=== PATIENT | male | born 1975 | race Caucasian/White ===

== ENCOUNTER 2019-08-01 15:20 | Inpatient (IN) | payer BC, MEDICAID, SELFPAY ==
--- NOTE | ~2019-08-01 | XR_ITS ---
EXAMINATION: XR foot RT 2V DATE: 08/01/2019 16:42 INDICATION: Right foot osteoarthritis. TECHNIQUE: 2 views of right foot were obtained. COMPARISON: Right foot radiographs 11/16/2017 FINDINGS: There are changes of transmetatarsal amputation of the fifth ray. There are erosions at the distal aspect of the residual diaphysis of the fifth metatarsal. There is an overlying skin defect. No fracture. Joint spaces are normal. IMPRESSION: 1. Osteomyelitis of the distal stump of the fifth metatarsal. Reviewed, dictated and finalized at location A.
--- NOTE | ~2019-08-01 | US_ITS ---
EXAMINATION: US renal BI DATE: 08/02/2019 09:05 INDICATION: Renal insufficiency, diabetes, uncontrolled hypertension TECHNIQUE: Multiple grayscale and Doppler ultrasound images of the kidneys were obtained. COMPARISON: CT, 11/14/2017 FINDINGS: The right kidney measures 10.0 x 4.7 x 6.6 cm. The left kidney measures 13.7 x 7.4 x 5.4 cm . The kidneys demonstrate normal parenchymal echogenicity. There is no hydronephrosis. The bladder is normal. IMPRESSION: 1. Normal kidneys without hydronephrosis. Reviewed, dictated and finalized at location B.
--- NOTE | ~2019-08-01 | XR_ITS ---
EXAMINATION: XR chest PICC line EXAM DATE: 08/06/2019 18:06 INDICATION: PICC Line placement. TECHNIQUE: Portable AP frontal chest x-ray was obtained. There is no prior study for comparison. FINDINGS: There is a right-sided PICC line with tip projecting over the cavoatrial junction. The lung s are clear. There are no pleural effusions. The cardiomediastinal silhouette is within normal limi ts. There is no pneumothorax suspected. The bones and soft tissues are unremarkable. IMPRESSION: No acute cardiopulmonary findings. Reviewed, dictated and finalized at location A.
[2019-08-01 15:40] VITALS: BP 146/85; PULSE 106; RESP 18; TEMP 36.9; O2SAT 100
--- NOTE | 2019-08-01 15:48 | ED.WOUNDLAC ---
HPI - Wound/Laceration General Chief Complaint: Wound/Laceration Stated Complaint: foot inflammation/open wound Time Seen by Provider: 08/01/19 15:37 Source: patient Mode of arrival: ambulatory Limitations: no limitations History of Present Illness HPI narrative: A 43 y/o male pt has arrived at the ED with c/o a wound to his right lateral foot. The wound was caused by a blister that had popped a couple weeks ago, which the pt contributes to rubbing against his shoe at work. The pt reports associated right foot swelling. The pt saw Dr. Yost for an amputation of his right 5th toe 1.5 years ago. Pt sees a PCP at [facility]. Pt notes that he was on metformin a year and a half ago and stopped after getting his DM under control. Pt was recently told to start taking metformin again. He states that he took the metformin for 5 days and stopped taking it a week and a half ago because he thought that was why his wound was not healing. The pt denies fever, chills, and N/V. He also denies a h/o smoking, or drinking. Onset (ago): week(s) (2) Location: other (right lateral foot) Extremity Location: Right: foot Context: other (popped blister on lateral right foot) Associated symptoms: other (swelling of right foot) Related Data Home Medications Medication Instructions Recorded Confirmed No Home Medications 08/01/19 08/01/19 Allergies Allergy/AdvReac Type Severity Reaction Status Date / Time No Known Allergies Allergy Verified 08/01/19 15:39 Review of Systems Review of Systems: All systems reviewed & are unremarkable except as noted in HPI and below Constitutional: Constitutional: Denies chills and Denies fever(s) Gastrointestinal: Gastrointestinal: Denies nausea and Denies vomiting Musculoskeletal: Musculoskeletal: Reports other (right foot swelling) Integumentary/Breasts: Skin/Breast: Reports wounds (right lateral foot) [facility] Past Medical History Medical History Acute hematogenous osteomyelitis of foot right 5th toe Amputation of fifth toe of right foot Arthritis Bipolar disorder Diabetes mellitus Diabetic ulcer of right foot GERD (gastroesophageal reflux disease) GI bleed HTN (hypertension) Peripheral neuropathy bilateral feet Renal disease Retinopathy, bilateral Suicide attempt Surgical History Surgical History H/O amputation 5th right toe Social History Social History Smoking status: Former smoker Tobacco type: cigars Additional smoking assessment comments: pt smoked 3 cigars a day for 20 years Alcohol intake: never Substance use: current Substance use type: marijuana Occupation/Education: occupation Gender identity (if verbalized by the patient): Male Spiritual care concerns: No Agree to blood products: Yes Course Consultations Consultation #1: Discussed case with AMOS Dixon for the hospitalist. Accepted Admission Date: 08/01/19 Time: 17:25 Vital Signs Vital signs: Vital Signs Temperature 36.9 C 08/01/19 15:40 Pulse Rate 106 H 08/01/19 15:40 Respiratory Rate 18 08/01/19 15:40 Blood Pressure 146/85 H 08/01/19 15:40 Pulse Oximetry 100 08/01/19 15:40 Temperature 37.3 C 08/01/19 20:00 Pulse Rate 98 08/01/19 20:00 Respiratory Rate 16 08/01/19 20:00 Blood Pressure 170/96 H 08/01/19 20:00 Pulse Oximetry 100 08/01/19 20:00 MDM - Wound/Laceration Lab Data Result diagrams: 08/01/19 16:00 08/01/19 16:00 Labs: Lab Results 08/01/19 08/01/19 08/01/19 Range/Units 15:57 15:57 15:59 WBC (4.5-10.0) K/mm3 RBC (4.6-6.20) M/mm3 Hgb (14.0-18.0) g/dL Hct (42.0-52.0) % MCV (80-100) fl MCH (26-34) pg MCHC (32-36) g/dl RDW (11.5-14.5) % Plt Count (150-375) k/mm3 MPV (7.4-10.4) fl Immature Gran % (Auto) (0-0.5) % Neut %
[2019-08-01 16:07] LABS: Basophils Percent Auto 0.5 % (0.2-1.2); Eosinophils Absolute Auto 0.1 K/mm3 (0-0.3); Hematocrit 34.4 % (42.0-52.0); Hemoglobin 11.2 g/dL (14.0-18.0); Immature Granulocyte Absolute 0.02 K/mm3 (0.00-0.031); Immature Granulocyte Percent A 0.2 % (0-0.5); Lymphocytes Absolute Auto 1.51 K/mm3 (0.9-3.2); Lymphocytes Percent Auto 17.1 % (18.3-44.2); Mean Corpuscular HGB Conc 32.6 g/dl (32-36); Mean Corpuscular Hemoglobin 26.2 pg (26-34); Mean Corpuscular Volume 80.4 fl (80-100); Mean Platelet Volume 10.8 fl (7.4-10.4); Monocytes Absolute Auto 0.7 K/mm3 (0.1-0.6); Monocytes Percent Auto 7.6 % (2.6-8.5); Neutrophils Absolute Auto 6.5 K/mm3 (1.3-6.7); Neutrophils Percent Auto 73.6 % (45.5-73.1); Platelet Count Result 258 k/mm3 (150-375); Red Blood Count 4.28 M/mm3 (4.6-6.20); Red Cell Distribution Width 12.3 % (11.5-14.5); White Blood Count 8.8 K/mm3 (4.5-10.0)
[2019-08-01 16:19] LABS: Lactic Acid Reflex 1.4 mmol/L (0.7-2.1)
[2019-08-01 16:23] LABS: Alanine Aminotransferase 14 U/L (4-50); Albumin Level 3.6 g/dL (3.5-5.1); Alkaline Phosphatase 154 U/L (38-126); Aspartate Amino Transferase 18 U/L (17-59); Bilirubin,Total 0.3 mg/dL (0.2-1.3); Blood Urea Nitrogen 29 mg/dL (9-20); Calcium 8.8 mg/dL (8.4-10.2); Carbon Dioxide 29 mmol/L (22-30); Chloride 93 mmol/L (98-107); Estimated CRCL calculation 46 ml/min; Estimated Glomerular Filt Rate 35; Glucose 558 mg/dL (75-110); Potassium 3.7 mmol/L (3.4-5.0); Sodium 128 mmol/L (137-145)
[2019-08-01 16:33] LABS: INR 0.9
[2019-08-01 16:34] LABS: Partial Thromboplastin Time 27.9 SECONDS (22.3-36.8)
[2019-08-01 16:45] LABS: CRP 4.9 mg/dL (<1.0)
--- NOTE | 2019-08-01 17:09 | ED.GENADULT ---
HPI - General Adult General Chief complaint: Wound/Laceration Stated complaint: foot inflammation/open wound Time Seen by Provider: 08/01/19 15:37 Source: patient Mode of arrival: ambulatory Limitations: no limitations History of Present Illness HPI narrative: Patient is a 43 Related Data Allergies Allergy/AdvReac Type Severity Reaction Status Date / Time No Known Allergies Allergy Verified 08/01/19 15:39 PMFSH Past Medical History Medical History Acute hematogenous osteomyelitis of foot right 5th toe Amputation of fifth toe of right foot Arthritis Bipolar disorder Diabetes mellitus Diabetic ulcer of right foot GERD (gastroesophageal reflux disease) GI bleed HTN (hypertension) Peripheral neuropathy bilateral feet Renal disease Retinopathy, bilateral Suicide attempt Surgical History Surgical History H/O amputation 5th right toe Social History Social History Smoking status: Never smoker Alcohol intake: never Occupation/Education: occupation Course Vital Signs Vital signs: Vital Signs Temperature 98.4 F 08/01/19 15:40 Pulse Rate 106 H 08/01/19 15:40 Respiratory Rate 18 08/01/19 15:40 Blood Pressure 146/85 H 08/01/19 15:40 Pulse Oximetry 100 08/01/19 15:40 Temperature 98.4 F 08/01/19 15:40 Pulse Rate 106 H 08/01/19 15:40 Respiratory Rate 18 08/01/19 15:40 Blood Pressure 146/85 H 08/01/19 15:40 Pulse Oximetry 100 08/01/19 15:40 Medical Decision Making Vital Signs Vital Signs: Vital Signs Temperature 98.4 F 08/01/19 15:40 Pulse Rate 106 H 08/01/19 15:40 Respiratory Rate 18 08/01/19 15:40 Blood Pressure 146/85 H 08/01/19 15:40 Pulse Oximetry 100 08/01/19 15:40 Temperature 98.4 F 08/01/19 15:40 Pulse Rate 106 H 08/01/19 15:40 Respiratory Rate 18 08/01/19 15:40 Blood Pressure 146/85 H 08/01/19 15:40 Pulse Oximetry 100 08/01/19 15:40 Lab Data Result diagrams: 08/01/19 16:00 08/01/19 16:00 Labs: Lab Results 08/01/19 08/01/19 08/01/19 Range/Units 15:59 16:00 16:00 WBC 8.8 (4.5-10.0) K/mm3 RBC 4.28 L (4.6-6.20) M/mm3 Hgb 11.2 L (14.0-18.0) g/dL Hct 34.4 L (42.0-52.0) % MCV 80.4 (80-100) fl MCH 26.2 (26-34) pg MCHC 32.6 (32-36) g/dl RDW 12.3 (11.5-14.5) % Plt Count 258 (150-375) k/mm3 MPV 10.8 H (7.4-10.4) fl Immature Gran % (Auto) 0.2 (0-0.5) % Neut % (Auto) 73.6 H (45.5-73.1) % Lymph % (Auto) 17.1 L (18.3-44.2) % [place] % (Auto) 7.6 (2.6-8.5) % Eos % (Auto) 1.0 (0-4.4) % Baso % (Auto) 0.5 (0.2-1.2) % Lymph # (Auto) 1.51 (0.9-3.2) K/mm3 [place] # (Auto) 0.7 H (0.1-0.6) K/mm3 Eos # (Auto) 0.1 (0-0.3) K/mm3 Baso # (Auto) 0.0 (0.0-0.1) K/mm3 Abs Immat Gran (auto) 0.02 (0.00-0.031) K/mm3 Absolute Neuts (auto) 6.5 (1.3-6.7) K/mm3 Absolute Nucleated RBC 0.0 (0.0-0.012) K/mm3 Nucleated RBC % 0.0 (0.0-0.2) % PT 12.0 (11.1-14.7) Seconds INR 0.9 APTT 27.9 (22.3-36.8) SECONDS Sodium 128 L (137-145) mmol/L Potassium 3.7 (3.4-5.0) mmol/L Chloride 93 L (98-107) mmol/L Carbon Dioxide 29 (22-30) mmol/L BUN 29 H (9-20) mg/dL Creatinine 2.10 H (0.7-1.3) mg/dL Estim Creat Clear Calc 46 ml/min Estimated GFR 35 L (59 - ) Glucose 558 H* (75-110) mg/dL Lactic Acid (0.7-2.1) mmol/L Calcium 8.8 (8.4-10.2) mg/dL Total Bilirubin 0.3 (0.2-1.3) mg/dL AST 18 (17-59) U/L ALT 14 (4-50) U/L Alkaline Phosphatase 154 H (38-126) U/L C-Reactive Protein 4.9 H (<1.0) mg/dL Total Protein 7.0 (6.3-8.2) g/dL Albumin 3.6 (3.5-5.1) g/dL 03/25/20 Range/Units 16:00 WBC (4.5-10.0) K/mm3 RBC (4.6-6.20) M/mm3 Hgb (14.0-18.0) g/dL Hct (42.0-52.0) % MCV
[2019-08-01] MEDS: SODIUM CHLORIDE 0.9% IV 1,000 ML 999 ML IV CONT (17:17)
[2019-08-01] MEDS: INSULIN HUMAN REGULAR (*BKC) 100 UNITS/ML 9 UNITS IV PUSH (17:17)
[2019-08-01 17:18] LABS: Alveolar/Arterial O2 Gradient 12.9 mmHg; Fractional Inspired Oxygen 21 %; HCO3 ABG 26.2 mEq/l (22.0-26.0); Oxygen Content ABG 15.9 %vol (16.0-22.0); Oxygen Saturation ABG 97.7 % (95.0-100.0); Oxyhemoglobin 96.7 % THb (90.0-100.0); PCO2 ABG 35.3 mmHg (35.0-45.0); PO2 ABG 94.6 mmHg (80.0-100.0); Total Hemoglobin 11.6 g/dL (12.0-18.0); pH ABG 7.489 (7.350-7.450)
[2019-08-01 17:22] LABS: Device ROOM AIR; Site Drawn LEFT BRACHIAL
[2019-08-01 17:24] LABS: Phosphorus 3.7 mg/dL (2.5-4.5)
[2019-08-01 17:32] LABS: Beta-Hydroxybutyrate/Acetoacetate 0.11 mmol/L (0.02-0.27)
[2019-08-01] MEDS: INSULIN HUMAN REGULAR (*BKC) 100 UNITS in SODIUM CHLORIDE 0.9% IV 99 ML 9.9 UNITS IV CONT (17:38)
[2019-08-01] MEDS: SODIUM CHLORIDE 0.9% IV 1,000 ML 1000 ML (17:50)
[2019-08-01 18:11] VITALS: BP 166/91; PULSE 102; RESP 18; O2SAT 96
--- NOTE | 2019-08-01 18:13 | PC.NURSE ---
pt state sthat he does not take any medications t home, lifetsyle changes are what have helped him.
[2019-08-01 18:17] LABS: Glucose Point of Care 278 (65-105)
--- NOTE | 2019-08-01 18:34 | PC.NURSE ---
catalino to stop insulin drip so pt can go to med surg
[2019-08-01 19:20] VITALS: BP 174/100; PULSE 92; RESP 16; O2SAT 98
[2019-08-01 19:36] VITALS: BP 169/94; PULSE 98; RESP 16; O2SAT 97
[2019-08-01 20:00] VITALS: BP 170/96; PULSE 98; RESP 16; TEMP 37.3; O2SAT 100
--- NOTE | 2019-08-01 20:03 | ADMGEN ---
This patient, Dejan Sevilla, was admitted to 2 Medical Room 259-. Patient/family oriented to hospital policies and general routines including ID bracelet, bed and alarms, visiting hours, pain management, procedures, bathroom and other care routines, personal items, smoking policy, room service/diet, and visiting hours. Valuables list has been completed. Information on how to activate the Rapid Response Team has been discussed. Patient/Family are encouraged to report perceived risks to care and to ask questions if they do not understand what they are told or what they should do.
[2019-08-01 20:19] VITALS: BMI 25.3
[2019-08-01] MEDS: SODIUM CHLORIDE 0.9% IV 1,000 ML 125 ML IV CONT (20:30)
[2019-08-01 21:39] LABS: Hemoglobin A1C > 14.0 % (<5.7)
[2019-08-02] VITALS (14 sets, daily range): BP systolic 122–175; BP diastolic 80–114; PULSE 85–106; RESP 14–18; TEMP 36.4–37.2; O2SAT 99–100
--- NOTE | 2019-08-02 00:15 | PM.IMHP ---
H&P: HPI History of Present Illness Chief complaint: Right diabetic foot wound. Narrative: Dejan Sevilla is a 43-year-old male with type 2 diabetes mellitus complicated by retinopathy, nephropathy, neuropathy, and gastroparesis who presented to the emergency department earlier this afternoon via private vehicle for evaluation of a right diabetic foot wound. He was diagnosed with diabetes approximately 2 years ago when hospitalized at [facility] for a right foot wound, which eventually led to a right 5th toe amputation. Since that time, he has only been intermittently compliant with oral anti diabetic agents for no good reason. Additionally, he has not been taking his antihypertensives. In any event, he has had a callus at the site of prior amputation for ?a long time.? The area started to blister several weeks ago and since that time he has noticed swelling to the right lower leg. More recently, there has been malodorous serosanguineous drainage coming from the wound. Due to severe neuropathy, he has no pain at this site. He has not had fever, chills, or sweats. No recent nausea or vomiting, however he said he was hospitalized at [place] several weeks ago with ?gastroparesis.? He does not check his glucose at home. He denies blurry vision, polydipsia, and polyuria. Review of Systems Review of Systems: Narrative: Twelve systems were reviewed with pertinent positives and negatives as per HPI. He has lost about 30 pounds over the last several years since being diagnosed, without significant change recently. He had nausea and vomiting several weeks ago when he was hospitalized at [facility] as detailed in HPI. He has a previous history of esophagitis noted on EGD in November 2017. He denies hematemesis, melena, and hematochezia. No significant abdominal discomfort or heartburn. Denies chest pain and shortness of breath. No dysuria or hematuria. He has not noticed a change in urine output. No known history of multidrug resistant organisms. No history of venous thromboembolism. Except as documented, all other systems were reviewed and are negative. [facility] Past Medical History Medical History (Updated 08/02/19 @ 01:53 by Martine Solorzano PA-C) Bipolar disorder Chronic anemia Chronic kidney disease, stage 3 Baseline creatinine appears to be between 1.60 and 1.80. Diabetic gastroparesis Diabetic retinopathy GERD (gastroesophageal reflux disease) History of GI bleed Secondary to esophagitis noted on EGD in November 2017. History of osteomyelitis Right 5th toe, status post amputation. History of suicide attempt Hypertension Type 2 diabetes mellitus, uncontrolled Complicated by retinopathy, nephropathy, neuropathy, and gastroparesis. Hemoglobin A1c 08/01/2019 was > 14%. Surgical History Surgical History (Updated 08/02/19 @ 01:45 by Martine Solorzano PA-C) Status post amputation of toe of right foot Right 5th toe due to osteomyelitis. Family History Family History (Updated 08/02/19 @ 01:45 by Martine Solorzano PA-C) Other Adopted Social History Social History (Updated 08/02/19 @ 01:47 by Martine Solorzano PA-C) Social History: The patient lives in [place] with his and their 3 children, 1 biological daughter and 2 step children. The patient is adopted and does not know any medical history regarding his biological parents. 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 He is a previous smoker, both cigars and cigarettes. He does smoke cannabis. He denies alcohol use. , Pari, is his surrogate decision maker and he wishes to be a full code. Additional smoking assessment comments: Spiritual care concerns: No Agree to blood products: Yes Meds Home Medications and Allergies Home Medications Medication Instructions Recorded Confirmed Type No Home Medications 08/01/19 08/01/19 History Allergies Allergy/AdvReac Type Severity Reaction Status Date / Time No Known A
[2019-08-02 01:58] LABS: Creatine Kinase 523 U/L (55-170)
[2019-08-02 01:59] LABS: Blood Urea Nitrogen 23 mg/dL (9-20); Calcium 7.9 mg/dL (8.4-10.2); Carbon Dioxide 24 mmol/L (22-30); Chloride 101 mmol/L (98-107); Estimated CRCL calculation 60 ml/min; Estimated Glomerular Filt Rate 48; Glucose 351 mg/dL (75-110); Potassium 3.8 mmol/L (3.4-5.0); Sodium 131 mmol/L (137-145)
[2019-08-02 03:37] LABS: Glucose Point of Care 203 (65-105)
[2019-08-02] MEDS: INSULIN GLARGINE (*BKC) 100 UNITS/ML 17 UNITS SUB-Q (05:00)
[2019-08-02] MEDS: SODIUM CHLORIDE 0.9% IV 1,000 ML 125 ML IV CONT (05:02)
[2019-08-02 08:00] LABS: Hematocrit 31.3 % (42.0-52.0); Hemoglobin 10.2 g/dL (14.0-18.0); Mean Corpuscular HGB Conc 32.6 g/dl (32-36); Mean Corpuscular Hemoglobin 26.3 pg (26-34); Mean Corpuscular Volume 80.7 fl (80-100); Mean Platelet Volume 10.7 fl (7.4-10.4); Platelet Count Result 224 k/mm3 (150-375); Red Blood Count 3.88 M/mm3 (4.6-6.20); Red Cell Distribution Width 12.3 % (11.5-14.5); White Blood Count 6.8 K/mm3 (4.5-10.0)
--- NOTE | 2019-08-02 08:03 | PM.IMPN ---
Progress Note: A&P Assessment and Plan (1) Osteomyelitis of metatarsal: Code(s): M86.9 - Osteomyelitis, unspecified Status: Acute Assessment and Plan: Rt foot Xray reveals osteomyelitis of the distal stump of the right 5th metatarsal. The pt has bounding DP and PT. I suspect this is neuropathic. Dr. Dumont is on board and has recommended the pt proceed to the OR this afternoon. NPO Blood and wound cultures pending (2) Diabetic foot ulcer: Code(s): E11.621 - Type 2 diabetes mellitus with foot ulcer; L97.509 - Non-pressure chronic ulcer of other part of unspecified foot with unspecified severity Status: Acute Assessment and Plan: WCC normal. Pt is afebrile. Continue imipenem and vancomycin Encourage elevation of the affected extremity Pt will proceed to the OR today with Dr. Dumont (3) Acute kidney injury superimposed on chronic kidney disease: Code(s): N17.9 - Acute kidney failure, unspecified; N18.9 - Chronic kidney disease, unspecified Status: Acute Assessment and Plan: Pt has CKD at baseline. Records requested for comparison. Cr has improved to 1.5 today. Cr 2.1 at presentation to the ED. Continue IV fluid rehydration until pt is tolerating PO intake well post-op. Pt will likely benefit from TODD/ARB at discharge. Avoid nephrotoxic agents Pt will need to obtain better glycemic control to reduce his risk for progression of his diabetic nephropathy Trend Cr Renal US pending (4) Type 2 diabetes mellitus, uncontrolled: Code(s): E11.65 - Type 2 diabetes mellitus with hyperglycemia Status: Acute Assessment and Plan: Pt has many complications of his uncontrolled diabetes and hyperglycemia including peripheral neuropathy, nephropathy, and gastroparesis. He understands the importance of gaining better glycemic control. Hb A1C >14%. Lantus 17 units daily given hemoglobin A1c of > 14% Dietitian and nurse informatics educator consulted Initiate sliding scale insulin, Accu-Cheks, and hypoglycemic protocol Pt will likely benefit from endocrinology consult at discharge as well (5) Hypertension: Code(s): I10 - Essential (primary) hypertension Status: Acute Assessment and Plan: Continue amlodipine 5mg QD Will also consider addition of TODD/ARB for renal protection Monitor blood pressure closely (6) Chronic anemia: Code(s): D64.9 - Anemia, unspecified Status: Acute Assessment and Plan: Stable on review of previous labs. Will check B12, folate, and iron. Will continue to monitor (7) Noncompliance: Code(s): Z91.19 - Patient's noncompliance with other medical treatment and regimen Status: Acute Assessment and Plan: Pt has been non-compliant with the treatment of his diabetes and hypertension. I had a long conversation with the pt regarding the risks of continued noncompliance including adverse CV outcomes, renal disease, etc. He verbalized understanding and is motivated to make changes. Subjective Date/time seen: 08/02/19 08:03 Interval history: Mr. Sevilla is seen and examined at bedside. He reports mild headache since he has not had caffeine today. He has no other complaints. He was seen by Dr. Dumont this AM and has plans to go to the OR this afternoon. He denies fever, chills, nausea, vomiting, cough, SOB, and chest pain. He denies vision change, speech change, and lateralizing weaekness. He has no other complaints. Review of Systems Review of Systems: All systems reviewed & are unremarkable except as noted in HPI and below Exam Narrative: Exam Narrative: General: Well-developed male lying in bed resting. He is cooperative and appears to be in no acute distress. HEENT: Normocephalic and atraumatic. Conjunctivae and lids normal. PERRL. EOMI. Mucous membranes moist. Tooth missing. Posterior pharynx without erythema or exudate. Neck: Supple. No lymphaden
[2019-08-02 08:10] LABS: Blood Urea Nitrogen 20 mg/dL (9-20); Carbon Dioxide 28 mmol/L (22-30); Chloride 103 mmol/L (98-107); Estimated CRCL calculation 64 ml/min; Estimated Glomerular Filt Rate 52; Glucose 311 mg/dL (75-110); Potassium 3.8 mmol/L (3.4-5.0); Sodium 132 mmol/L (137-145)
[2019-08-02 08:15] LABS: Cholesterol 150 mg/dL (0-200); HDL Direct 49 mg/dL; Triglycerides 153 mg/dL (<150)
[2019-08-02 08:26] LABS: LDL Cholesterol Direct 60 mg/dL
[2019-08-02] MEDS: ACETAMINOPHEN 325 MG TABLET 650 MG PO (09:30)
[2019-08-02] MEDS: AMLODIPINE BESYLATE 5 MG TABLET PO (09:32)
[2019-08-02 12:14] LABS: Glucose Point of Care 246 (65-105)
--- NOTE | 2019-08-02 12:40 | PM.CNGS ---
Assessment and Plan Assessment and plan (1) Diabetic infection of right foot: Code(s): E11.628 - Type 2 diabetes mellitus with other skin complications; L08.9 - Local infection of the skin and subcutaneous tissue, unspecified Status: Acute Assessment and Plan: agree with broad-spectrum antibiotic therapy. (2) Osteomyelitis of metatarsal: Code(s): M86.9 - Osteomyelitis, unspecified Status: Acute Assessment and Plan: I explained to the patient that he does have osteomyelitis of the metatarsal where he had his previous 5th toe amputation. With diabetes, particularly poorly controlled diabetes, it is not going to heal without surgical resection. I discussed proceeding with resection today. He is agreeable to going ahead. We will go ahead under anesthesia later today with resection of the 5th metatarsal. He will likely have an open wound that will require wound care following surgery. (3) Type 2 diabetes mellitus, uncontrolled: Code(s): E11.65 - Type 2 diabetes mellitus with hyperglycemia Status: Acute (4) Acute kidney injury superimposed on chronic kidney disease: Code(s): N17.9 - Acute kidney failure, unspecified; N18.9 - Chronic kidney disease, unspecified Status: Acute Assessment and Plan: Improving (5) Noncompliance: Code(s): Z91.19 - Patient's noncompliance with other medical treatment and regimen Status: Acute (6) Chronic anemia: Code(s): D64.9 - Anemia, unspecified Status: Acute History of Present Illness Consult details Consult date: 08/02/19 Reason for consult: other ( osteomyelitis diabetic foot infection) Narrative: the patient is a 43-year-old man with diabetes and several complications of diabetes. He has very little feeling in his feet. His diabetes has been poorly controlled. About 2 years ago he had a right 5th metatarsal amputation at [facility] for a diabetic foot infection. He had a callus over the 5th metatarsal stump for quite some time. Recently this area started to swell blister and become tender. There has also been some foul-smelling drainage. He came to the emergency room and plain films of the foot show osteomyelitis of the 5th metatarsal stump. He has been admitted and started on antibiotics. He is seen now in consultation regarding surgical evaluation and treatment. Review of Systems Review of Systems: All systems reviewed & are unremarkable except as noted in HPI and below Constitutional: Constitutional: Denies headache(s) ENT: Denies headache(s) Cardiovascular: Cardiovascular: Denies chest pain and Denies dyspnea Respiratory: Respiratory: Denies cough and Denies dyspnea Gastrointestinal: Gastrointestinal: Denies abdominal pain, Denies nausea and Denies vomiting Neurologic: Denies confusion and Denies headache(s) Psychiatric: Psychiatric: Denies confusion [facility] Past Medical History Medical History Bipolar disorder Chronic anemia Chronic kidney disease, stage 3 Baseline creatinine appears to be between 1.60 and 1.80. Diabetic gastroparesis Diabetic retinopathy GERD (gastroesophageal reflux disease) History of GI bleed Secondary to esophagitis noted on EGD in November 2017. History of osteomyelitis Right 5th toe, status post amputation. History of suicide attempt Hypertension Type 2 diabetes mellitus, uncontrolled Complicated by retinopathy, nephropathy, neuropathy, and gastroparesis. Hemoglobin A1c 08/01/2019 was > 14%. Surgical History Surgical History Status post amputation of toe of right foot Right 5th toe due to osteomyelitis. Family History Family History Other Adopted Social History Social History Social History: The patient lives in
[2019-08-02] MEDS: LACTATED RINGERS 1,000 ML 30 ML IV CONT (13:19)
--- NOTE | 2019-08-02 13:51 | WPDANESEPPF ---
Anes - Initial Pre Proc Eval Procedure: Operation Date: 08/02/19 14:00 Proposed Procedures p Resection Right Fifth Metatarsal - Kai Dumont MD Date/Time: 08/02/19 13:51 Surgeon: Rachael Noriega PA-C Pre Op Diagnosis: Right diabetic foot wound. Patient Data Age: 43 Gender: M Height: 6 ft Weight: 84.6 kg Last Vital Signs Temp 36.8 C 08/02/19 13:12 Pulse 85 08/02/19 13:12 Resp 16 08/02/19 13:12 BP 166/97 H 08/02/19 13:12 Pulse Ox 100 08/02/19 13:12 Allergies Allergy/AdvReac Type Severity Reaction Status Date / Time No Known Allergies Allergy Verified 08/01/19 15:39 Home Medications Medication Instructions Recorded Confirmed Type No Home Medications 08/01/19 08/01/19 History Laboratory Tests 08/01/19 08/01/19 08/01/19 15:57 15:57 15:57 WBC RBC Hgb Hct MCV MCH MCHC RDW Plt Count MPV Immature Gran % (Auto) Neut % (Auto) Lymph % (Auto) [place] % (Auto) Eos % (Auto) Baso % (Auto) Lymph # (Auto) [place] # (Auto) Eos # (Auto) Baso # (Auto) Abs Immat Gran (auto) Absolute Neuts (auto) Absolute Nucleated RBC Nucleated RBC % PT INR APTT Puncture Site ABG pH ABG pCO2 ABG pO2 ABG PO2/FiO2 Ratio ABG HCO3 ABG O2 Saturation ABG O2 Content ABG Base Excess A-a Gradient Oxyhemoglobin Total Hemoglobin O2 Delivery Device O2 Liters/Min FiO2 Sodium Potassium Chloride Carbon Dioxide BUN Creatinine Estim Creat Clear Calc Estimated GFR Glucose POC Capillary Glucose Hemoglobin A1c > 14.0 % H % (<5.7) Lactic Acid Calcium Phosphorus 3.7 mg/dL mg/dL (2.5-4.5) Magnesium 2.0 mg/dL mg/dL (1.6-2.3) Total Bilirubin AST ALT Alkaline Phosphatase Total Creatine Kinase C-Reactive Protein Total Protein Albumin Triglycerides Cholesterol LDL Cholesterol Direct HDL Direct Beta-Hydroxybutyrate/Acetoacetate 0.11 mmol/L mmol/L (0.02-0.27) 08/01/19 08/01/19 08/01/19 15:59 16:00 16:00 WBC 8.8 K/mm3 K/mm3 (4.5-10.0) RBC 4.28 M/mm3 L M/mm3 (4.6-6.20) Hgb 11.2 g/dL L g/dL (14.0-18.0) Hct 34.4 % L % (42.0-52.0) MCV 80.4 fl fl (80-100) MCH 26.2 pg pg (26-34) MCHC 32.6 g/dl g/dl (32-36) RDW 12.3 % % (11.5-14.5) Plt Count 258 k/mm3 k/mm3 (150-375) MPV 10.8 fl H fl (7.4-10.4) Immature Gran % (Auto) 0.2 % % (0-0.5) Neut % (Auto) 73.6 % H % (45.5-73.1) Lymph % (Auto) 17.1 % L % (18.3-44.2) [place] % (Auto) 7.6 % % (2.6-8.5) Eos % (Auto) 1.0 % % (0-4.4) Baso % (Auto) 0.5 % % (0.2-1.2) Lymph # (Auto) 1.51 K/mm3 K/mm3 (0.9-3.2) [place] # (Auto) 0.7 K/mm3 H K/mm3 (0.1-0.6) Eos # (Auto) 0.1 K/mm3 K/mm3 (0-0.3) Baso # (Auto) 0.0 K/mm3 K/mm3 (0.0-0.1) Abs Immat Gran (auto) 0.02 K/mm3 K/mm3 (0.00-0.031) Absolute Neuts (auto) 6.5 K/mm3 K/mm3 (1.3-6.7) Absolute Nucleated RBC 0.0 K/mm3 K/mm3 (0.0-0.012) Nucleated RBC % 0.0 % % (0.0-0.2) PT 12.0 Seconds Seconds (11.1-14.7) INR 0.9 A
--- NOTE | 2019-08-02 15:14 | SUR.OPER ---
Ebl=10
--- NOTE | 2019-08-02 15:20 | PM.PROC ---
Procedure Note - Detailed Date of procedure: 08/02/19 Pre-op diagnosis: Osteomyelitis 5th metatarsal Osteomyelitis 5th metatarsal stump Post-op diagnosis: same Procedure performed: Open amputation right 5th metatarsal Description of procedure: The patient had a previous right 5th toe amputation including the distal metatarsal 2 years ago. He presented with a diabetic foot infection with ulceration over the 5th metatarsal. Imaging showed osteomyelitis of the distal shaft of the remaining 5th metatarsal. The patient is taken to surgery now for open amputation and excision of the remaining 5th metatarsal shaft. He was placed on the operating table and general anesthesia with LMA was induced. The right foot was prepped and draped. Debridement of the overlying eschar was carried out so that the 5th metatarsal ulcer was well seen. There was a lot of granulation tissue associated with this. An oval shaped incision running along the lateral access of the foot was then made excising the area of osteomyelitis hand proceeding deep to the 5th metatarsal. Purulent fluid was seen between the 5th metatarsal and 4th metatarsal. This was sent for Gram stain and cultures. The incision was extended towards the heel along the lateral aspect of the foot so that the 5th metatarsal shaft was nearly entirely exposed. I then exposed the bone of the 5th metatarsal and used the periosteal elevator to free it completely from surrounding ligamentous and connective tissue. I tried to use a bone cutter to divide the 5th metatarsal shaft but the shaft was too large and sturdy. A Gigli saw was then used. I amputated the 5th metatarsal just above the metatarsal tarsal joint. A rasp was used to smooth the edge of the 5th metatarsal after the amputation. The 5th metatarsal with the end of osteomyelitis was then excised and sent to pathology. The wound was pretty hemostatic already. No cautery was required. I loosely approximated the superficial subcutaneous tissue over the cut end of the 5th metatarsal with 3 0 Vicryl suture. the skin was likewise loosely approximated with 4 0 Vicryl subcuticular suture. This was only of the more posterior aspect of the incision. The distal aspect was left open and dressed with Xeroform gauze, fluffs, and Kerlix roll. The patient was awakened and taken to recovery in good condition. Estimated blood loss was 20 cc. Counts were correct x2. Anesthesia: GLMA Surgeon: Kai Dumont MD Labelling Machine Operator: Viraj JUAN Estimated blood loss (mL): 20 Drains: No Packing: Yes (Xeroform gauze and fluffs) Pathology: yes (5th metatarsal with osteomyelitis of the distal shaft; cultures were sent as well) Complications: None Condition: stable Disposition: PACU Findings: Osteomyelitis of the distal 5th metatarsal shaft on the right foot with diabetic foot ulcer and infection. Cultures were taken of purulent fluid in the wound.
[2019-08-02 15:33] LABS: Glucose Point of Care 246 (65-105)
[2019-08-02] MEDS: INSULIN HUMAN REGULAR (*BKC) 100 UNITS/ML 6 UNITS SUB-Q (15:58)
[2019-08-02 16:10] LABS: Glucose Point of Care 288 (65-105)
[2019-08-02] MEDS: LABETALOL HCL INJ 100 MG/20 ML VIAL IV PUSH (16:10)
--- NOTE | 2019-08-02 16:10 | PCDIET ---
Consult received for uncontrolled DM. Pt has been diabetic for two years and has been sporadic with oral meds recently. Glucose today is 246. Prior hospital visit with gastroparesis noted. Here today due to rt diabetic foot wound. Rt 5th toe amputated prior. Pt out of room today. Diabetic education with contact left at bedside. Recommend ADAT to [facility] diet. We will follow up to review education.
[2019-08-02] MEDS: SODIUM CHLORIDE 0.9% IV 1,000 ML 100 ML IV CONT (17:09)
[2019-08-02 17:44] LABS: Glucose Point of Care 241 (65-105)
[2019-08-02] MEDS: ONDANSETRON INJ 4 MG/2 ML VIAL IV PUSH (17:51)
[2019-08-02] MEDS: hydrALAZINE HCL 20 MG/ML VIAL 10 MG IV PUSH (17:51)
[2019-08-02] MEDS: INSULIN ASPART (*BKC) 100 UNITS/ML SUB-Q (17:52)
[2019-08-02 20:20] LABS: Add Urine Microscopic? YES; Appearance Urine Clear (Clear); Bilirubin Urine Negative (Negative); Blood Urine 1+ (Negative); Color Urine Straw (Yellow); Glucose Urine UA 3+ mg/dL (Negative); Ketones Urine Trace mg/dL (Negative); Leukocyte Esterase Ur Negative LEU/UL (Negative); Nitrate Urine Negative (Negative); Protein Urine 2+ mg/dL (Negative); Urobilinogen Urine Negative mg/dL (<2.0); WBC Urine 0-3 /hpf
[2019-08-02] MEDS: ENOXAPARIN 30 MG/0.3 ML SYRINGE SUB-Q (20:50)
[2019-08-02] MEDS: INSULIN GLARGINE (*BKC) 100 UNITS/ML 20 UNITS SUB-Q (20:54)
[2019-08-02 20:57] LABS: Glucose Point of Care 306 (65-105)
[2019-08-03 02:00] VITALS: BP 147/90; PULSE 102; RESP 14; TEMP 36.4; O2SAT 99
[2019-08-03] MEDS: SODIUM CHLORIDE 0.9% IV 1,000 ML 100 ML IV CONT (04:10)
[2019-08-03 05:27] LABS: Basophils Absolute Auto 0.1 K/mm3 (0.0-0.1); Basophils Percent Auto 0.7 % (0.2-1.2); Eosinophils Absolute Auto 0.1 K/mm3 (0-0.3); Eosinophils Percent Auto 1.7 % (0-4.4); Hematocrit 32.1 % (42.0-52.0); Hemoglobin 10.5 g/dL (14.0-18.0); Immature Granulocyte Absolute 0.02 K/mm3 (0.00-0.031); Immature Granulocyte Percent A 0.3 % (0-0.5); Lymphocytes Absolute Auto 1.72 K/mm3 (0.9-3.2); Lymphocytes Percent Auto 22.9 % (18.3-44.2); Mean Corpuscular HGB Conc 32.7 g/dl (32-36); Mean Corpuscular Hemoglobin 26.3 pg (26-34); Mean Corpuscular Volume 80.5 fl (80-100); Mean Platelet Volume 10.4 fl (7.4-10.4); Monocytes Absolute Auto 0.5 K/mm3 (0.1-0.6); Monocytes Percent Auto 7.2 % (2.6-8.5); Neutrophils Absolute Auto 5.1 K/mm3 (1.3-6.7); Neutrophils Percent Auto 67.2 % (45.5-73.1); Platelet Count Result 244 k/mm3 (150-375); Red Blood Count 3.99 M/mm3 (4.6-6.20); Red Cell Distribution Width 12.3 % (11.5-14.5); White Blood Count 7.5 K/mm3 (4.5-10.0)
[2019-08-03 05:31] VITALS: BP 141/85; PULSE 107; RESP 16; TEMP 36.2; O2SAT 99
[2019-08-03 05:40] LABS: Alanine Aminotransferase 11 U/L (4-50); Albumin Level 2.8 g/dL (3.5-5.1); Alkaline Phosphatase 83 U/L (38-126); Aspartate Amino Transferase 14 U/L (17-59); Bilirubin,Total 0.2 mg/dL (0.2-1.3); Blood Urea Nitrogen 12 mg/dL (9-20); Calcium 7.6 mg/dL (8.4-10.2); Carbon Dioxide 28 mmol/L (22-30); Chloride 103 mmol/L (98-107); Estimated CRCL calculation 64 ml/min; Estimated Glomerular Filt Rate 52; Glucose 253 mg/dL (75-110); Potassium 3.3 mmol/L (3.4-5.0); Sodium 135 mmol/L (137-145)
[2019-08-03 05:44] LABS: Transferrin 157 mg/dL (206-381)
[2019-08-03 05:51] LABS: Iron 39 ug/dL (49-181)
[2019-08-03 06:00] LABS: Percent Iron Saturation 17 % (20-50)
[2019-08-03 06:42] LABS: Folic Acid 14.9 ng/mL (2.76->20)
--- NOTE | 2019-08-03 06:50 | PM.PNGS ---
Progress Note: A&P Assessment and Plan (1) Osteomyelitis of metatarsal: Code(s): M86.9 - Osteomyelitis, unspecified Status: Acute Assessment and Plan: Will ask wound nurses to see regarding chronic wound care. Amputation site looks good. (2) Diabetic infection of right foot: Code(s): E11.628 - Type 2 diabetes mellitus with other skin complications; L08.9 - Local infection of the skin and subcutaneous tissue, unspecified Status: Acute Assessment and Plan: Continue IV antibiotics. Await culture results. Subjective Subjective Date/Time Seen: 08/03/19 06:50 Post Op day: 1 Patient reports: no new complaints and feels better Review of Systems Review of Systems: All systems reviewed & are unremarkable except as noted in HPI and below ( HPI) Constitutional: Constitutional: Denies chills and Denies fever(s) Exam Extrem: Right lower extremity: foot ( dressing removed, wound looks clean. No purulence. No necrotic tissue.) Details: no tenderness Objective Data Vital Signs Vital Signs: Vital Signs - 24 hr 08/02/19 10:00 08/02/19 13:12 08/02/19 15:21 Temperature 36.8 C 36.8 C 36.4 C L Pulse Rate 90 85 94 Respiratory Rate 16 16 16 Blood Pressure 175/90 H 166/97 H 122/80 Pulse Oximetry 100 100 100 08/02/19 15:35 08/02/19 15:50 08/02/19 16:05 Temperature Pulse Rate 96 96 96 Respiratory Rate 16 16 16 Blood Pressure 144/97 H 153/102 H 168/114 H Pulse Oximetry 100 100 100 08/02/19 16:10 08/02/19 16:20 08/02/19 16:55 Temperature 36.9 C Pulse Rate 96 91 95 Respiratory Rate 16 14 Blood Pressure 169/106 H 165/100 H Pulse Oximetry 100 100 08/02/19 17:00 08/02/19 19:02 08/02/19 20:00 Temperature 36.8 C 36.7 C 36.4 C Pulse Rate 92 97 106 H Respiratory Rate 16 16 16 Blood Pressure 164/99 H 174/101 H 136/86 Pulse Oximetry 100 100 100 08/03/19 02:00 08/03/19 05:31 Temperature 36.4 C L 36.2 C L Pulse Rate 102 H 107 H Respiratory Rate 14 16 Blood Pressure 147/90 H 141/85 H Pulse Oximetry 99 99 Intake/Output Intake/Output: Intake & Output 07/31/19 08/01/19 08/02/19 08/03/19 23:59 23:59 23:59 23:59 Intake Total 2410 3950 1250 Output Total 1750 1600 Balance 2410 2200 -350 Meds/Results Medications: Active Medications Generic Name Dose Route Start Last Admin Trade Name Freq PRN Reason Stop Dose Admin Acetaminophen 500 mg 08/02/19 16:30 Tylenol Tablet PO Q6H PRN Mild Pain (1-3) or Fever Hydrocodone Bitart/Acetaminophen 1 tab 08/02/19 16:[address] 5-325 Mg PO Q4H PRN Pain Rated 4-6 Hydrocodone Bitart/Acetaminophen 1 tab 08/02/19 16:[address] 7.5-325 Mg PO Q4H PRN Pain Rated 7-10 Amlodipine Besylate 5 mg 08/02/19 09:00 08/02/19 09:32 Norvasc PO 5 mg QAM KEEGAN Administration Dextrose 12.5 gm 08/02/19 01:27 Dextrose 50% Syringe IV PUSH PRN PRN Hypoglycemia Protocol Enoxaparin Sodium 30 mg 08/02/19 21:00 08/02/19 20:50 Lovenox SUB-Q 30 mg Q12HR KEEGAN Administration Glucagon 1 mg 08/02/19 01:27 Glucagon For Inj IM PRN PRN Hypoglycemia Protocol Glucose 15 gm 08/02/19 01:27 Glutose 15 PO PRN PRN Hypoglycemia Protocol Hydralazine HCl 10 mg 08/02/19 17:06 08/02/19 17:51 Apresoline Hcl Inj IV PUSH 10 mg Q8H PRN Administration Hypertension Sodium Chloride 1,000 mls @ 100 mls/hr 08/01/19 19:00 08/03/19 04:10 Normal Saline Iv IV CONT 100 mls/hr .Q10H KEEGAN Administration Imipenem/Cilastatin Sodium 500 mg in 100 mls @ 300 mls/hr 08/01/19 22:00 08/03/19 06:20 Primaxin 500 Mg/D5w 100 Ml IVPB Infused Q8HR KEEGAN Infusion Dextrose 1,000 mls @ 100 mls/hr 08/02/19 01:27 Dextrose 5% 1,000 Ml IVPB PRN PRN Hypoglycemia Protocol Vancomycin HCl 1,250 mg in 250 mls @ 200 mls/hr 08/02/19 12:00 08/03/19 06:22 Vancomycin 1,250 Mg/D5w 250 Ml IVPB 150 mls/hr Q18H SC
[2019-08-03 07:42] LABS: Glucose Point of Care 289 (65-105)
[2019-08-03] MEDS: INSULIN ASPART (*BKC) 100 UNITS/ML SUB-Q ×2 (07:47→12:06)
[2019-08-03] MEDS: AMLODIPINE BESYLATE 5 MG TABLET PO (07:57)
[2019-08-03] MEDS: ENOXAPARIN 30 MG/0.3 ML SYRINGE SUB-Q ×2 (07:57→21:00)
[2019-08-03] MEDS: lisinopriL 5 MG TABLET PO (07:57)
[2019-08-03] MEDS: POTASSIUM CHLORIDE 20 MEQ TABLET PO (07:57)
--- NOTE | 2019-08-03 08:26 | PM.IMPN ---
Progress Note: A&P Assessment and Plan (1) Osteomyelitis of metatarsal: Code(s): M86.9 - Osteomyelitis, unspecified Status: Acute Assessment and Plan: Rt foot Xray revealed osteomyelitis of the distal stump of the right 5th metatarsal. Pt is POD#1 s/p open amputation of the right 5th metatarsal. His pain is well-controlled. Per nursing staff, the wound bed looked very healthy during dressing change. Dressing is c/d/i. Pt has no leukocytosis. Post-op care per Dr. Dumont (2) Diabetic foot ulcer: Code(s): E11.621 - Type 2 diabetes mellitus with foot ulcer; L97.509 - Non-pressure chronic ulcer of other part of unspecified foot with unspecified severity Status: Acute Assessment and Plan: WCC normal. Pt is afebrile. Blood cultures reveal NGTD. Preliminary wound cultures reveal gram positive cocci and gram positive bacilli. Continue imipenem and vancomycin empirically until final cultures are available Encourage elevation of the affected extremity (3) Acute kidney injury superimposed on chronic kidney disease: Code(s): N17.9 - Acute kidney failure, unspecified; N18.9 - Chronic kidney disease, unspecified Status: Acute Assessment and Plan: Pt has CKD at baseline. Cr from 11/2017 was 1.6. Cr has improved to 1.5 today. BUN 12. I suspect that this is his baseline. Renal US WNL. Will discontinue IV fluids as pt is tolerating PO intake well Will trend Cr Pt will need to continue outpatient follow-up for his CKD. He reports that he has an appointment at [facility] in 2-3 weeks to establish care. (4) Type 2 diabetes mellitus, uncontrolled: Code(s): E11.65 - Type 2 diabetes mellitus with hyperglycemia Status: Acute Assessment and Plan: Pt has many complications of his uncontrolled diabetes and hyperglycemia including peripheral neuropathy, nephropathy, and gastroparesis. He understands the importance of gaining better glycemic control. Hb A1C >14%. Blood sugars have improved but are still elevated in 200s with one reading of 306. He adamantly refuses metformin because he said this has caused pain in the past. He was on glipizide as well as empagliflozin in the past. Lantus increased to 20 units Dietitian and energy sales broker consulted Initiate sliding scale insulin, will increase to high dose Accu-Checks Hypoglycemic protocol Pt will likely benefit from endocrinology consult at discharge as well Will add glipizide 5mg (5) Hypertension: Code(s): I10 - Essential (primary) hypertension Status: Acute Assessment and Plan: Continue amlodipine 5mg QD UA shows proteinuria, will add lisinopril 5mg and titrate. Pt will need repeat CMP outpatient. Continue to monitor BP closely (6) Chronic anemia: Code(s): D64.9 - Anemia, unspecified Status: Acute Assessment and Plan: Pt has chronic normocytic anemia which was present on prior labs from 11/2017. I suspect that this is due to his CKD. Vitamin B12 and folate normal. Iron studies consistent with anemia of chronic disease. Will continue to monitor (7) Noncompliance: Code(s): Z91.19 - Patient's noncompliance with other medical treatment and regimen Status: Acute Assessment and Plan: Pt has been non-compliant with the treatment of his diabetes and hypertension. I have discussed the risks of continued noncompliance including adverse CV outcomes, renal disease, etc. He verbalized understanding and is motivated to make changes. He has been instructed to keep his appt to establish a PCP. (8) Microscopic hematuria: Code(s): R31.29 - Other microscopic hematuria Status: Acute Assessment and Plan: UA with microscopic hematuria. Recommend repeat UA outpatient and referral to urology if this is persistent. Pt denies gross hematuria. Subjective Date/time seen: 08/03/19 08:26 Interval histo
[2019-08-03] MEDS: glipiZIDE 5 MG TABLET PO (09:14)
[2019-08-03] MEDS: PANTOPRAZOLE SOD SESQUIHYDRATE 20 MG TAB PO (09:14)
[2019-08-03 10:00] VITALS: BP 132/84; PULSE 103; RESP 17; TEMP 36.6; O2SAT 100
[2019-08-03] MEDS: SILVERGEL (ELTA) 45 ML 1 APPLIC TOPICAL (11:08)
[2019-08-03 14:00] VITALS: BP 136/84; PULSE 96; RESP 20; TEMP 36.6; O2SAT 100
[2019-08-03 16:20] VITALS: BMI 26.9
[2019-08-03 16:55] LABS: Glucose Point of Care 186 (65-105)
[2019-08-03 18:00] VITALS: BP 138/89; PULSE 95; RESP 18; TEMP 36.8; O2SAT 99
[2019-08-03 20:38] LABS: Glucose Point of Care 305 (65-105)
[2019-08-03] MEDS: INSULIN GLARGINE (*BKC) 100 UNITS/ML 20 UNITS SUB-Q (21:01)
[2019-08-03 21:20] LABS: Glucose Point of Care 196 (65-105)
[2019-08-03 22:00] VITALS: BP 160/84; PULSE 97; RESP 18; TEMP 36.7; O2SAT 100
[2019-08-03] MEDS: ONDANSETRON INJ 4 MG/2 ML VIAL IV PUSH (22:17)
[2019-08-04] VITALS (8 sets, daily range): BP systolic 158–182; BP diastolic 76–99; PULSE 89–115; RESP 16–18; TEMP 36.4–36.8; O2SAT 98–100
[2019-08-04 00:14] LABS: Vancomycin Trough 11.1 ug/mL (10.0-20.0)
[2019-08-04 05:44] LABS: Hematocrit 32.4 % (42.0-52.0); Hemoglobin 10.7 g/dL (14.0-18.0); Mean Corpuscular Hemoglobin 26.4 pg (26-34); Mean Platelet Volume 9.9 fl (7.4-10.4); Platelet Count Result 268 k/mm3 (150-375); Red Blood Count 4.05 M/mm3 (4.6-6.20); Red Cell Distribution Width 12.6 % (11.5-14.5); White Blood Count 6.4 K/mm3 (4.5-10.0)
[2019-08-04 05:51] LABS: Blood Urea Nitrogen 10 mg/dL (9-20); Calcium 8.1 mg/dL (8.4-10.2); Carbon Dioxide 27 mmol/L (22-30); Chloride 107 mmol/L (98-107); Estimated CRCL calculation 64 ml/min; Estimated Glomerular Filt Rate 52; Glucose 161 mg/dL (75-110); Magnesium 1.9 mg/dL (1.6-2.3); Potassium 3.4 mmol/L (3.4-5.0); Sodium 136 mmol/L (137-145)
[2019-08-04] MEDS: glipiZIDE 5 MG TABLET PO (06:17)
[2019-08-04 08:09] LABS: Glucose Point of Care 154 (65-105)
[2019-08-04] MEDS: PANTOPRAZOLE SOD SESQUIHYDRATE 20 MG TAB PO (09:03)
[2019-08-04] MEDS: AMLODIPINE BESYLATE 5 MG TABLET PO ×2 (09:03→16:50)
[2019-08-04] MEDS: lisinopriL 5 MG TABLET PO (09:03)
[2019-08-04] MEDS: SILVERGEL (ELTA) 45 ML 1 APPLIC TOPICAL (09:04)
[2019-08-04] MEDS: ENOXAPARIN 30 MG/0.3 ML SYRINGE SUB-Q ×2 (10:28→20:48)
[2019-08-04 12:03] LABS: Glucose Point of Care 172 (65-105)
--- NOTE | 2019-08-04 13:34 | PM.PNGS ---
Progress Note: A&P Assessment and Plan (1) Diabetic infection of right foot: Code(s): E11.628 - Type 2 diabetes mellitus with other skin complications; L08.9 - Local infection of the skin and subcutaneous tissue, unspecified Status: Acute Assessment and Plan: Continue local wound care. Await evaluation by wound care nurses for long-term management. Subjective Subjective Date/Time Seen: 08/04/19 13:34 Pain controlled. Dressing changes going well. No new complaints. Exam Skin: Other: Serosanguinous drainage, but no purulence or signs of necrotic tissue at wound bed. Objective Data Vital Signs Vital Signs: Vital Signs - 24 hr 08/03/19 14:00 08/03/19 18:00 08/03/19 22:00 Temperature 36.6 C 36.8 C 36.7 C Pulse Rate 96 95 97 Respiratory Rate 20 18 18 Blood Pressure 136/84 138/89 160/84 H Pulse Oximetry 100 99 100 08/04/19 02:00 08/04/19 06:00 08/04/19 08:00 Temperature 36.7 C 36.5 C Pulse Rate 98 89 89 Respiratory Rate 16 18 18 Blood Pressure 158/76 H 161/85 H Pulse Oximetry 100 99 99 Intake/Output Intake/Output: Intake & Output 08/01/19 08/02/19 08/03/19 08/04/19 23:59 23:59 23:59 23:59 Intake Total 2410 3950 3310 1100 Output Total 1750 1600 Balance 2410 2200 1710 1100 Meds/Results Medications: Active Medications Generic Name Dose Route Start Last Admin Trade Name Freq PRN Reason Stop Dose Admin Acetaminophen 500 mg 08/02/19 16:30 Tylenol Tablet PO Q6H PRN Mild Pain (1-3) or Fever Hydrocodone Bitart/Acetaminophen 1 tab 08/02/19 16:30 [place] 5-325 Mg PO Q4H PRN Pain Rated 4-6 Hydrocodone Bitart/Acetaminophen 1 tab 08/02/19 16:30 [place] 7.5-325 Mg PO Q4H PRN Pain Rated 7-10 Amlodipine Besylate 5 mg 08/02/19 09:00 08/04/19 09:03 Norvasc PO 5 mg QAM KEEGAN Administration Dextrose 12.5 gm 08/02/19 01:27 Dextrose 50% Syringe IV PUSH PRN PRN Hypoglycemia Protocol Enoxaparin Sodium 30 mg 08/02/19 21:00 08/04/19 10:28 Lovenox SUB-Q 30 mg Q12HR KEEGAN Administration Glipizide 5 mg 08/03/19 08:35 08/04/19 06:17 Glucotrol PO 5 mg DAILY@0630 KEEGAN Administration Glucagon 1 mg 08/02/19 01:27 Glucagon For Inj IM PRN PRN Hypoglycemia Protocol Glucose 15 gm 08/02/19 01:27 Glutose 15 PO PRN PRN Hypoglycemia Protocol Hydralazine HCl 10 mg 08/02/19 17:06 08/02/19 17:51 Apresoline Hcl Inj IV PUSH 10 mg Q8H PRN Administration Hypertension Imipenem/Cilastatin Sodium 500 mg in 100 mls @ 300 mls/hr 08/01/19 22:00 08/04/19 05:39 Primaxin 500 Mg/D5w 100 Ml IVPB Infused Q8HR KEEGAN Infusion Dextrose 1,000 mls @ 100 mls/hr 08/02/19 01:27 Dextrose 5% 1,000 Ml IVPB PRN PRN Hypoglycemia Protocol Vancomycin HCl 1,250 mg in 250 mls @ 200 mls/hr 08/02/19 12:00 08/04/19 02:01 Vancomycin 1,250 Mg/D5w 250 Ml IVPB Infused Q18H KEEGAN Infusion Insulin Aspart 4 - 8 units 08/03/19 08:00 08/04/19 12:13 Novolog SUB-Q Not Given TIDWM KEEGAN Protocol Insulin Glargine 20 units 08/02/19 21:00 08/03/19 21:01 Lantus SUB-Q 20 units HS KEEGAN Administration Lisinopril 5 mg 08/03/19 09:00 08/04/19 09:03 Prinivil PO 5 mg QAM KEEGAN Administration Morphine Sulfate 1 mg 08/02/19 16:30 Morphine Sulfate Inj IV PUSH Q2H PRN Pain Rated 4-6 Morphine Sulfate 2 mg 08/02/19 16:30 Morphine Sulfate Inj IV PUSH Q2H PRN Pain Rated 7-10 Naloxone HCl 0.1 mg 08/02/19 16:30 Narcan IV PUSH Q2M PRN Opiate Reversal Ondansetron HCl 4 mg 08/02/19 16:30 08/03/19 22:17 Zofran Inj IV PUSH 4 mg Q4H PRN Administration Nausea And Vomiting Pantoprazole Sodium 20 mg 08/03/19 09:00 08/04/19 09:03 Protonix PO 20 mg QAM KEEGAN Administration Silver Nitrate 1 applic 08/03/19 09:00 08/04/19 09:04 Silvergel TOPICAL 1 applic DAILY KEEGAN
--- NOTE | 2019-08-04 15:50 | PM.IMPN ---
Progress Note: A&P Assessment and Plan (1) Osteomyelitis of metatarsal: Code(s): M86.9 - Osteomyelitis, unspecified Status: Acute Assessment and Plan: Rt foot Xray revealed osteomyelitis of the distal stump of the right 5th metatarsal. Pt is POD#2 s/p open amputation of the right 5th metatarsal. Post-op care per Dr. Dumont/general surgery and the wound care team (2) Diabetic foot ulcer: Code(s): E11.621 - Type 2 diabetes mellitus with foot ulcer; L97.509 - Non-pressure chronic ulcer of other part of unspecified foot with unspecified severity Status: Acute Assessment and Plan: WBC normal. Pt is afebrile. Blood cultures reveal NGTD. Preliminary wound culture reveals Staphylococcus aureus which is sensitive to vancomycin. Continue IV vancomycin. Will discontinue imipenem. Encourage elevation of the affected extremity (3) Acute kidney injury superimposed on chronic kidney disease: Code(s): N17.9 - Acute kidney failure, unspecified; N18.9 - Chronic kidney disease, unspecified Status: Acute Assessment and Plan: Pt has CKD at baseline. Cr from 11/2017 was 1.6. Cr is stable at 1.5 which is likely the patient's baseline. Renal US was WNL. Will trend Cr Pt will need to continue outpatient follow-up for his CKD. He reports that he has an appointment at [facility] in 2-3 weeks to establish care. (4) Type 2 diabetes mellitus, uncontrolled: Code(s): E11.65 - Type 2 diabetes mellitus with hyperglycemia Status: Acute Assessment and Plan: Pt has many complications of his uncontrolled diabetes and hyperglycemia including peripheral neuropathy, nephropathy, and gastroparesis. He understands the importance of gaining better glycemic control. Hb A1C >14%. Blood sugars have improved significantly today and are <180. Continue lantus 20 units Continue glipizide 5mg Dietitian and medical educator consulted Continue high-dose SSI Accu-Checks Hypoglycemic protocol Pt will likely benefit from endocrinology consult at discharge as well (5) Hypertension: Code(s): I10 - Essential (primary) hypertension Status: Acute Assessment and Plan: Pt has hx of essential HTN and has been non-compliant with his antihypertensives. BP was reviewed and elevated today. Will increase amlodipine to 10mg QD Continue lisinopril 5mg QD Hydralazine PRN until adequate BP control is obtained Continue to monitor BP closely (6) Chronic anemia: Code(s): D64.9 - Anemia, unspecified Status: Acute Assessment and Plan: Pt has chronic normocytic anemia which was present on prior labs from 11/2017. I suspect that this is due to his CKD. Hb and Hct are stable. Will continue to monitor (7) Noncompliance: Code(s): Z91.19 - Patient's noncompliance with other medical treatment and regimen Status: Acute Assessment and Plan: Pt has been non-compliant with the treatment of his diabetes and hypertension. I have discussed the risks of continued noncompliance including adverse CV outcomes, renal disease, etc. He verbalized understanding and is motivated to make changes. He has been instructed to keep his appt to establish a PCP. (8) Microscopic hematuria: Code(s): R31.29 - Other microscopic hematuria Status: Acute Assessment and Plan: UA with microscopic hematuria. Recommend repeat UA outpatient and referral to urology if this is persistent. Pt denies gross hematuria. Subjective Date/time seen: 08/04/19 15:50 Interval history: Mr. Sevilla is seen and examined at bedside today. He reports that he slept well and his pain is well-controlled. He is tolerating PO intake well. He denies fever and chills. He denies chest pain, SOB, and cough. He reports decreased polydipsia. He denies headaches, lightheadedness, and dizziness. Review of Systems Review of Systems: All
[2019-08-04 16:25] LABS: Glucose Point of Care 104 (65-105)
[2019-08-04] MEDS: hydrALAZINE HCL 20 MG/ML VIAL 10 MG IV PUSH (16:50)
[2019-08-04] MEDS: INSULIN GLARGINE (*BKC) 100 UNITS/ML 20 UNITS SUB-Q (20:52)
[2019-08-04 21:21] LABS: Glucose Point of Care 238 (65-105)
[2019-08-05] VITALS (9 sets, daily range): BP systolic 142–167; BP diastolic 82–95; PULSE 94–106; RESP 16–18; TEMP 36.4–36.7; O2SAT 100
[2019-08-05 05:43] LABS: Hematocrit 38.4 % (42.0-52.0); Hemoglobin 12.2 g/dL (14.0-18.0); Mean Corpuscular HGB Conc 31.8 g/dl (32-36); Mean Corpuscular Hemoglobin 26.3 pg (26-34); Mean Corpuscular Volume 82.9 fl (80-100); Mean Platelet Volume 9.9 fl (7.4-10.4); Platelet Count Result 338 k/mm3 (150-375); Red Blood Count 4.63 M/mm3 (4.6-6.20); Red Cell Distribution Width 12.7 % (11.5-14.5); White Blood Count 8.5 K/mm3 (4.5-10.0)
[2019-08-05 06:01] LABS: Blood Urea Nitrogen 13 mg/dL (9-20); Carbon Dioxide 30 mmol/L (22-30); Chloride 103 mmol/L (98-107); Estimated CRCL calculation 60 ml/min; Estimated Glomerular Filt Rate 48; Glucose 133 mg/dL (75-110); Magnesium 1.9 mg/dL (1.6-2.3); Sodium 137 mmol/L (137-145)
[2019-08-05 07:55] LABS: Glucose Point of Care 117 (65-105)
--- NOTE | 2019-08-05 08:32 | PM.IMPN ---
Progress Note: A&P Assessment and Plan (1) Osteomyelitis of metatarsal: Code(s): M86.9 - Osteomyelitis, unspecified Status: Acute Assessment and Plan: Rt foot Xray revealed osteomyelitis of the distal stump of the right 5th metatarsal. Pt is POD#3 s/p open amputation of the right 5th metatarsal. Pain is well-controlled. WBC is normal. Pt is afebrile. Blood cultures reveal NGTD. Preliminary wound culture obtained pre-operatively from the ulcer reveals Staphylococcus aureus and streptococcus milleri. S. aureus is susceptible to vacomycin and oxacillin (YESICA 0.5) on that culture. The intra-operative culture sensitivities are still pending. Continue IV vancomycin. Vancomycin was initiated 07/31. Will await results of sensitivities from the intra-operative culture. If it is MSSA, will discuss with ID once sensitivities are available regarding duration of treatment needed & de-escalate as appropriate. Encourage elevation of the affected extremity Additional post-op care per Dr. Dumont/general surgery and the wound care team (2) Acute kidney injury superimposed on chronic kidney disease: Code(s): N17.9 - Acute kidney failure, unspecified; N18.9 - Chronic kidney disease, unspecified Status: Acute Assessment and Plan: Pt has CKD at baseline. Cr from 11/2017 was 1.6. Cr is 1.6 today. I suspect that this is close to the patient's baseline. Renal US was WNL. Will trend Cr Pt will need to continue outpatient follow-up for his CKD. He reports that he has an appointment at [facility] in 2-3 weeks to establish care. (3) Type 2 diabetes mellitus, uncontrolled: Code(s): E11.65 - Type 2 diabetes mellitus with hyperglycemia Status: Acute Assessment and Plan: Pt has many complications of his uncontrolled diabetes and hyperglycemia including peripheral neuropathy, nephropathy, and gastroparesis. He understands the importance of gaining better glycemic control. Hb A1C >14%. Blood sugars reviewed and are adequately controlled on his current regimen. Continue lantus 20 units Continue glipizide 5mg Dietitian and public health educator consulted Continue high-dose SSI Accu-Checks Hypoglycemic protocol Pt will likely benefit from endocrinology consult at discharge as well (4) Hypertension: Code(s): I10 - Essential (primary) hypertension Status: Acute Assessment and Plan: Pt has hx of essential HTN and has been non-compliant with his antihypertensives. BP was reviewed and elevated overnight with systolic 160s-170s and diastolic 80s. He had one reading that was 182/98. He reports he was very stressed out last night since he is in isolation and not at home with his family. He called to speak with his last night which helped. Begin amlodipine to 10mg QD today and monitor Continue lisinopril 5mg QD, may titrate as indicated Hydralazine PRN until adequate BP control is obtained Continue to monitor BP closely (5) Chronic anemia: Code(s): D64.9 - Anemia, unspecified Status: Acute Assessment and Plan: Pt has chronic normocytic anemia which was present on prior labs from 11/2017. I suspect that this is due to his CKD. Hb and Hct are stable. Will continue to monitor (6) Noncompliance: Code(s): Z91.19 - Patient's noncompliance with other medical treatment and regimen Status: Acute Assessment and Plan: Pt has been non-compliant with the treatment of his diabetes and hypertension. I have discussed the risks of continued noncompliance including adverse CV outcomes, renal disease, etc. He verbalized understanding and is motivated to make changes. He has been instructed to keep his appt to establish a PCP. (7) Microscopic hematuria: Code(s): R31.29 - Other microscopic hematuria Status: Acute Assessment and Plan: UA with microscopic hematuria. Recommend repeat UA outpatient an
[2019-08-05] MEDS: glipiZIDE 5 MG TABLET PO (09:21)
[2019-08-05] MEDS: PANTOPRAZOLE SOD SESQUIHYDRATE 20 MG TAB PO (09:21)
[2019-08-05] MEDS: AMLODIPINE BESYLATE 5 MG TABLET 10 MG PO (09:22)
[2019-08-05] MEDS: lisinopriL 5 MG TABLET PO (09:23)
[2019-08-05] MEDS: SILVERGEL (ELTA) 45 ML 1 APPLIC TOPICAL (09:24)
[2019-08-05] MEDS: ENOXAPARIN 40 MG/0.4 ML SYRINGE SUB-Q (10:25)
[2019-08-05 12:07] LABS: Glucose Point of Care 199 (65-105)
--- NOTE | 2019-08-05 12:56 | PM.PNGS ---
Progress Note: A&P Assessment and Plan (1) Diabetic infection of right foot: Code(s): E11.628 - Type 2 diabetes mellitus with other skin complications; L08.9 - Local infection of the skin and subcutaneous tissue, unspecified Status: Acute Assessment and Plan: Continue local wound care. Await evaluation by wound care nurses for long-term management. Subjective Subjective Date/Time Seen: 08/05/19 12:56 Patient doing well with dressing changes. Exam Skin: Other: Serosanguinous drainage, but no purulence or signs of necrotic tissue at wound bed. Objective Data Vital Signs Vital Signs: Vital Signs - 24 hr 08/04/19 14:00 08/04/19 15:51 08/04/19 18:00 Temperature 36.6 C 36.4 C Pulse Rate 94 94 Respiratory Rate 16 16 Blood Pressure 166/89 H 177/99 H 178/87 H Pulse Oximetry 99 98 08/04/19 21:00 08/05/19 02:00 08/05/19 06:00 Temperature 36.6 C 36.6 C 36.7 C Pulse Rate 115 H 94 103 H Respiratory Rate 16 16 18 Blood Pressure 182/98 H 167/82 H 151/95 H Pulse Oximetry 100 100 100 08/05/19 08:00 08/05/19 10:00 08/05/19 11:22 Temperature 36.5 C Pulse Rate 103 H 96 Respiratory Rate 18 16 Blood Pressure 149/92 H 152/93 H Pulse Oximetry 100 100 Intake/Output Intake/Output: Intake & Output 08/02/19 08/03/19 08/04/19 08/05/19 23:59 23:59 23:59 23:59 Intake Total 3950 3310 2950 560 Output Total 1750 1600 950 Balance 2200 1710 2000 560 Meds/Results Medications: Active Medications Generic Name Dose Route Start Last Admin Trade Name Freq PRN Reason Stop Dose Admin Acetaminophen 500 mg 08/02/19 16:30 Tylenol Tablet PO Q6H PRN Mild Pain (1-3) or Fever Hydrocodone Bitart/Acetaminophen 1 tab 08/02/19 16:30 08/04/19 21:35 [place] 5-325 Mg PO 1 tab Q4H PRN Administration Pain Rated 4-6 Hydrocodone Bitart/Acetaminophen 1 tab 08/02/19 16:30 [place] 7.5-325 Mg PO Q4H PRN Pain Rated 7-10 Amlodipine Besylate 10 mg 08/04/19 16:06 08/05/19 09:22 Norvasc PO 10 mg QAM [facility] Administration Dextrose 12.5 gm 08/02/19 01:27 Dextrose 50% Syringe IV PUSH PRN PRN Hypoglycemia Protocol Enoxaparin Sodium 40 mg 08/05/19 09:00 08/05/19 10:25 Lovenox SUB-Q 40 mg DAILY [facility]EEGAN Administration Glipizide 5 mg 08/03/19 08:35 08/05/19 09:21 Glucotrol PO 5 mg DAILY@0630 [facility]GAN Administration Glucagon 1 mg 08/02/19 01:27 Glucagon For Inj IM PRN PRN Hypoglycemia Protocol Glucose 15 gm 08/02/19 01:27 Glutose 15 PO PRN PRN Hypoglycemia Protocol Hydralazine HCl 10 mg 08/05/19 08:53 Apresoline Hcl Inj IV PUSH Q6H PRN Hypertension Dextrose 1,000 mls @ 100 mls/hr 08/02/19 01:27 Dextrose 5% 1,000 Ml IVPB PRN PRN Hypoglycemia Protocol Vancomycin HCl 1,250 mg in 250 mls @ 200 mls/hr 08/02/19 12:00 08/05/19 12:51 Vancomycin 1,250 Mg/D5w 250 Ml IVPB 200 mls/hr Q18H [facility] Administration Insulin Aspart 4 - 8 units 08/03/19 08:00 08/05/19 12:47 Novolog SUB-Q Not Given TIDWM [facility] Protocol Insulin Glargine 20 units 08/02/19 21:00 08/04/19 20:52 Lantus SUB-Q 20 units HS [facility] Administration Lisinopril 5 mg 08/05/19 09:00 08/05/19 09:23 Prinivil PO 5 mg QAM [facility] Administration Morphine Sulfate 1 mg 08/02/19 16:30 Morphine Sulfate Inj IV PUSH Q2H PRN Pain Rated 4-6 Morphine Sulfate 2 mg 08/02/19 16:30 Morphine Sulfate Inj IV PUSH Q2H PRN Pain Rated 7-10 Naloxone HCl 0.1 mg 08/02/19 16:30 Narcan IV PUSH Q2M PRN Opiate Reversal Ondansetron HCl 4 mg 08/02/19 16:30 08/03/19 22:17 Zofran Inj IV PUSH 4 mg Q4H PRN Administration Nausea And Vomiting Pantoprazole Sodium 20 mg 08/03/19 09:00 08/05/19 09:21 Protonix PO 20 mg QAM [facility] Administration Silver Nitrate 1 applic 08/03/19 09:00 08/05/19 09:24 Silvergel TOPICAL 1 ap
[2019-08-05 16:34] LABS: Glucose Point of Care 264 (65-105)
[2019-08-05] MEDS: INSULIN ASPART (*BKC) 100 UNITS/ML SUB-Q (16:57)
[2019-08-05] MEDS: INSULIN GLARGINE (*BKC) 100 UNITS/ML 20 UNITS SUB-Q (20:20)
[2019-08-05 21:28] LABS: Glucose Point of Care 174 (65-105)
[2019-08-06 02:00] VITALS: BP 147/88; PULSE 92; RESP 16; TEMP 36.4; O2SAT 100
[2019-08-06 05:41] LABS: Hematocrit 34.2 % (42.0-52.0); Hemoglobin 11.1 g/dL (14.0-18.0); Mean Corpuscular HGB Conc 32.5 g/dl (32-36); Mean Corpuscular Hemoglobin 26.4 pg (26-34); Mean Corpuscular Volume 81.2 fl (80-100); Mean Platelet Volume 10.2 fl (7.4-10.4); Platelet Count Result 302 k/mm3 (150-375); Red Blood Count 4.21 M/mm3 (4.6-6.20); Red Cell Distribution Width 12.7 % (11.5-14.5); White Blood Count 6.9 K/mm3 (4.5-10.0)
[2019-08-06 05:50] LABS: Albumin Level 3.1 g/dL (3.5-5.1); Blood Urea Nitrogen 17 mg/dL (9-20); Calcium 8.6 mg/dL (8.4-10.2); Carbon Dioxide 33 mmol/L (22-30); Chloride 104 mmol/L (98-107); Estimated CRCL calculation 60 ml/min; Estimated Glomerular Filt Rate 48; Glucose 137 mg/dL (75-110); Phosphorus 4.1 mg/dL (2.5-4.5); Potassium 4.2 mmol/L (3.4-5.0); Sodium 138 mmol/L (137-145)
[2019-08-06 06:51] VITALS: BP 144/84; PULSE 94; RESP 16; TEMP 36.6; O2SAT 100
[2019-08-06] MEDS: ENOXAPARIN 40 MG/0.4 ML SYRINGE SUB-Q (08:02)
[2019-08-06] MEDS: AMLODIPINE BESYLATE 5 MG TABLET 10 MG PO (08:02)
[2019-08-06] MEDS: glipiZIDE 5 MG TABLET PO (08:02)
[2019-08-06] MEDS: PANTOPRAZOLE SOD SESQUIHYDRATE 20 MG TAB PO (08:03)
[2019-08-06] MEDS: lisinopriL 10 MG TABLET PO (08:03)
[2019-08-06] MEDS: SILVERGEL (ELTA) 45 ML 1 APPLIC TOPICAL (08:04)
[2019-08-06 09:50] LABS: Glucose Point of Care 161 (65-105)
--- NOTE | 2019-08-06 10:10 | PM.PNGS ---
Progress Note: A&P Assessment and Plan (1) Diabetic infection of right foot: Code(s): E11.628 - Type 2 diabetes mellitus with other skin complications; L08.9 - Local infection of the skin and subcutaneous tissue, unspecified Status: Acute Assessment and Plan: Patient doing well post-op day 4. Discussed patient's case with Dr. Dumont. Okay to discharge from a surgical standpoint. Continue local wound care with silver gel dressing changes once daily. Follow-up with Dr. Dumont in the [place] wound clinic next week. (2) Type 2 diabetes mellitus, uncontrolled: Code(s): E11.65 - Type 2 diabetes mellitus with hyperglycemia Status: Acute Assessment and Plan: Discussed with the patient the importance of glycemic control post-operatively on discharge and to help prevent further infections. Subjective Subjective Date/Time Seen: 08/06/19 10:00 Patient reports: no new complaints Interval history: Patient doing well today. No new complaints. Review of Systems Review of Systems: All systems reviewed & are unremarkable except as noted in HPI and below Exam Const: General: comfortable and no acute distress Orientation/consciousness: patient oriented x3 Skin: Other: Right foot wound with serosanguinous drainage, but no purulence or signs of necrotic tissue at wound bed. Strong DP and PT pulses. Normal cap refill. Neuro: General: no focal motor deficits Extrem: General: full ROM, no calf tenderness and no edema Psych: Affect: normal affect Insight: Good insight present (Psych) Judgement: Good judgement present (Psych) Objective Data Vital Signs Vital Signs: Vital Signs - 24 hr 08/05/19 11:22 08/05/19 15:00 08/05/19 18:35 Temperature 36.7 C 36.7 C Pulse Rate 99 106 H Respiratory Rate 16 18 Blood Pressure 152/93 H 147/91 H 149/92 H Pulse Oximetry 100 100 08/05/19 20:00 08/05/19 22:34 08/06/19 02:00 Temperature 36.4 C L 36.4 C Pulse Rate 97 92 Respiratory Rate 16 16 Blood Pressure 142/92 H 147/88 H Pulse Oximetry 100 100 100 08/06/19 06:51 Temperature 36.6 C Pulse Rate 94 Respiratory Rate 16 Blood Pressure 144/84 H Pulse Oximetry 100 Intake/Output Intake/Output: Intake & Output 08/03/19 08/04/19 08/05/1930/20 23:59 23:59 23:59 23:59 Intake Total 3310 2950 2400 1105 Output Total 1600 950 Balance 1710 2000 2400 1105 Meds/Results Medications: Active Medications Generic Name Dose Route Start Last Admin Trade Name Freq PRN Reason Stop Dose Admin Acetaminophen 500 mg 08/02/19 16:30 Tylenol Tablet PO Q6H PRN Mild Pain (1-3) or Fever Hydrocodone Bitart/Acetaminophen 1 tab 08/02/19 16:30 08/04/19 21:35 [place] 5-325 Mg PO 1 tab Q4H PRN Administration Pain Rated 4-6 Hydrocodone Bitart/Acetaminophen 1 tab 08/02/19 16:30 [place] 7.5-325 Mg PO Q4H PRN Pain Rated 7-10 Amlodipine Besylate 10 mg 08/04/19 16:06 08/06/19 08:02 Norvasc PO 10 mg QAM [facility] Administration Dextrose 12.5 gm 08/02/19 01:27 Dextrose 50% Syringe IV PUSH PRN PRN Hypoglycemia Protocol Enoxaparin Sodium 40 mg 08/05/19 09:00 08/06/19 08:02 Lovenox SUB-Q 40 mg DAILY [facility] Administration Glipizide 5 mg 08/03/19 08:35 08/06/19 08:02 Glucotrol PO 5 mg DAILY@0630 [facility] Administration Glucagon 1 mg 08/02/19 01:27 Glucagon For Inj IM PRN PRN Hypoglycemia Protocol Glucose 15 gm 08/02/19 01:27 Glutose 15 PO PRN PRN Hypoglycemia Protocol Hydralazine HCl 10 mg 08/05/19 08:53 Apresoline Hcl Inj IV PUSH Q6H PRN Hypertension Dextrose 1,000 mls @ 100 mls/hr 08/02/19 01:27 Dextrose 5% 1,000 Ml IVPB PRN PRN Hypoglycemia Protocol Vancomycin HCl 1,250 mg/ 250 ml in 250 mls @ 200 mls/hr 08/06/19 06:00 08/06/19 07:24 Sodium Chloride IVPB Infused Q18H [facility] Infusion Insulin Aspart 4 - 8 units 08/03/19 08:00
[2019-08-06 10:47] VITALS: BP 130/85; PULSE 96; RESP 16; TEMP 36.3; O2SAT 100
[2019-08-06] MEDS: INSULIN ASPART (*BKC) 100 UNITS/ML SUB-Q (11:34)
--- NOTE | 2019-08-06 11:38 | PCCDE ---
diabetes education f/up: 08/05 increase Lantus to 25 units HS, continues on 5mg Glipizide OD and correction scale. Called pt in his room for f/up. Pt sts he sent his DM book home with his and she is reading it. Reviewed DM med regimen of Lantus OD with Glipizide OD. Pt sts oh I was hoping to take Humalog or Novolog . Pt sts this is b/c his pole maker has a bunch of this to give him. Advised this is different than Lantus (and most likely not going home on correction scale). Reviewed long acting and rapid acting insulins. Referred to insulin chart in book. Discussed the importance of BG control and following foot care instructions for foot to heal. Discussed things that affect BG including stress and discussed ways to reduce stress. Pt plans to find an edge burnisher that is covered on his insurance plan. Pt sts he plans to track BG and BP daily. Encouraged pt to call educator prn.
[2019-08-06 12:29] LABS: Glucose Point of Care 201 (65-105)
--- NOTE | 2019-08-06 13:25 | WPDINFPN2 ---
Progress Note: A&P Assessment and Plan (1) Osteomyelitis of metatarsal: Code(s): M86.9 - Osteomyelitis, unspecified Status: Acute Assessment and Plan: 1. Osteomyelitis of the R 5th MT. Clinically acute, though histopath pending. POD # 4 2. Past 5th toe amputation 2 years ago, did not require rn long term care IV therapy 3. DM, poor control REC Ctx #1 (antibiotic #6), IV therapy through 08/28. I reinforced that glycemic control is mandatory to prevent further infection. Subjective Date/time seen: 08/06/19 13:25 Objective Data Vital Signs Vital Signs: Vital Signs - 24 hr 08/05/19 15:00 08/05/19 18:35 08/05/19 20:00 Temperature 36.7 C 36.7 C Pulse Rate 99 106 H Respiratory Rate 16 18 Blood Pressure 147/91 H 149/92 H Pulse Oximetry 100 100 100 08/05/19 22:34 08/06/19 02:00 08/06/19 06:51 Temperature 36.4 C L 36.4 C 36.6 C Pulse Rate 97 92 94 Respiratory Rate 16 16 16 Blood Pressure 142/92 H 147/88 H 144/84 H Pulse Oximetry 100 100 100 08/06/19 10:47 Temperature 36.3 C L Pulse Rate 96 Respiratory Rate 16 Blood Pressure 130/85 Pulse Oximetry 100 Intake/Output Intake/Output: Intake & Output 08/03/19 08/04/19 08/05/19 08/06/19 23:59 23:59 23:59 23:59 Intake Total 3310 2950 2400 1585 Output Total 1600 950 Balance 1710 2000 2400 1585 Meds/Results Medications: Active Medications Generic Name Dose Route Start Last Admin Trade Name Freq PRN Reason Stop Dose Admin Acetaminophen 500 mg 08/02/19 16:30 Tylenol Tablet PO Q6H PRN Mild Pain (1-3) or Fever Hydrocodone Bitart/Acetaminophen 1 tab 08/02/19 16:30 08/04/19 21:35 [place] 5-325 Mg PO 1 tab Q4H PRN Administration Pain Rated 4-6 Hydrocodone Bitart/Acetaminophen 1 tab 08/02/19 16:30 [place] 7.5-325 Mg PO Q4H PRN Pain Rated 7-10 Amlodipine Besylate 10 mg 08/04/19 16:06 08/06/19 08:02 Norvasc PO 10 mg QAM [facility] Administration Dextrose 12.5 gm 08/02/19 01:27 Dextrose 50% Syringe IV PUSH PRN PRN Hypoglycemia Protocol Enoxaparin Sodium 40 mg 08/05/19 09:00 08/06/19 08:02 Lovenox SUB-Q 40 mg DAILY [facility] Administration Glipizide 5 mg 08/03/19 08:35 08/06/19 08:02 Glucotrol PO 5 mg DAILY@0630 [facility] Administration Glucagon 1 mg 08/02/19 01:27 Glucagon For Inj IM PRN PRN Hypoglycemia Protocol Glucose 15 gm 08/02/19 01:27 Glutose 15 PO PRN PRN Hypoglycemia Protocol Hydralazine HCl 10 mg 08/05/19 08:53 Apresoline Hcl Inj IV PUSH Q6H PRN Hypertension Dextrose 1,000 mls @ 100 mls/hr 08/02/19 01:27 Dextrose 5% 1,000 Ml IVPB PRN PRN Hypoglycemia Protocol Insulin Aspart 4 - 8 units 08/03/19 08:00 08/06/19 11:34 Novolog SUB-Q 4 units TIDWM [facility] Administration Protocol Insulin Glargine 25 units 08/06/19 07:08 Lantus SUB-Q HS [facility] Lisinopril 10 mg 08/06/19 09:00 08/06/19 08:03 Prinivil PO 10 mg QAM [facility] Administration Morphine Sulfate 1 mg 08/02/19 16:30 Morphine Sulfate Inj IV PUSH Q2H PRN Pain Rated 4-6 Morphine Sulfate 2 mg 08/02/19 16:30 Morphine Sulfate Inj IV PUSH Q2H PRN Pain Rated 7-10 Naloxone HCl 0.1 mg 08/02/19 16:30 Narcan IV PUSH Q2M PRN Opiate Reversal Ondansetron HCl 4 mg 08/02/19 16:30 08/03/19 22:17 Zofran Inj IV PUSH 4 mg Q4H PRN Administration Nausea And Vomiting Pantoprazole Sodium 20 mg 08/03/19 09:00 08/06/19 08:03 Protonix PO 20 mg QAM [facility] Administration Silver Nitrate 1 applic 08/03/19 09:00 08/06/19 08:04 Silvergel TOPICAL 1 applic DAILY [facility] Administration Radiology Results: ITS Impressions Foot X-Ray 08/01/19 16:57 IMPRESSION: 1. Osteomyelitis of the distal stump of the fifth metatarsal. Renal Ultrasound 08/02/19 09:06 IMPRESSION: 1. Normal kidneys without hydronephrosis.
--- NOTE | 2019-08-06 14:19 | CONS_ITS ---
DATE OF CONSULTATION: 08/06/2019 REASON FOR CONSULTATION: Osteomyelitis, right 5th toe. HISTORY OF PRESENT ILLNESS: The patient is a 43-year-old male with longstanding type 2 diabetes mellitus. I saw him approximately 2 years ago after he had right fifth toe amputation as well as the head of the metatarsal by Dr. Yost. He did not require prolonged IV therapy after the operation. He was followed by Dr. Yost for 1 year or less and had callus removed on a regular basis. This has not been needed, however, in the last year and the patient has had no Podiatry followup in that time. About 1 week before admission, the patient noted new onset of edema of the right foot. He initially thought this may have been due to the side effect of his new metformin, but due to progressive edema, he presented to the emergency room and was admitted on the . After evaluation, he was taken to the operating room on the , where he had open amputation of the right fifth metatarsal. Findings included purulence between the 5th metatarsal and the 4th metatarsal. The shaft was amputated just distal to the metatarsal-tarsal joint. The skin was loosely approximated and the wound was dressed. Grossly, the bone was infected at the time of operation. He has been on vancomycin postop and consultation is requested. He denies fever, chills, sweats, trauma to the foot, other skin symptoms, recent antibiotic use for any purpose, immunosuppressants, nor more recent operations except as outlined above. ALLERGIES: NONE. PRESENT MEDICATIONS: As above. HABITS: Ex-smoker. He does smoke marijuana currently. No alcohol. PAST MEDICAL HISTORY: In addition to the above, diabetic peripheral neuropathy, hypertension, GI hemorrhage, GERD, and stage 3 chronic renal insufficiency. He also has retinopathy and gastroparesis. He carries a diagnosis of bipolar disorder. SOCIAL HISTORY: He is , has several children. 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 FAMILY HISTORY: Unknown, as he is adopted. REVIEW OF SYSTEMS: Hyperglycemia. 14-point review otherwise negative. PHYSICAL EXAMINATION: GENERAL: This is a middle-aged male, who appears his actual age, in no acute distress. VITAL SIGNS: Since arrival afebrile, 130/85, 96, 16, 100% on room air. SKIN: Warm and dry. No rashes. NODES: No cervical adenopathy. EENT: The conjunctivae are normal. Pupils equal, round, and reactive to light. The oropharynx, oral mucosa normal. Teeth in excellent repair. No paranasal sinus erythema, edema, tenderness. NECK: No meningismus, masses, thyromegaly. LUNGS: Clear to auscultation and percussion. CARDIAC: Regular rate and rhythm without murmur, gallop, or rub. Radial pulse 2+. Left dorsalis pedis pulse 1+. There is no heave and PMI is not displaced. ABDOMEN: Soft, nontender. No organomegaly. No masses. EXTREMITIES: His right foot is dressed. I did not remove. He has proximal 1+ nonpitting leg edema. He has no edema on the left. He has some skin hyperpigmented lesions over both distal legs consistent with diabetic dermopathy. NEUROLOGIC: Absent sensation to light touch over the toes, present at the ankles bilaterally. LABORATORY DATA: Wound culture with Staph aureus and Strep milleri, this is from admission. Intraoperative wound culture with Staph aureus, oxacillin YESICA equals 0.5. Blood cultures, no growth so far. His white blood cell count normal on admission and again today, hemoglobin 11.1, platelets are 302, no differential done today, but briefly was normal. He has mild hyponatremia initially, now 138. Remainder of electrolytes show BUN of 17, creatinine 1.6, glucose is 137. His hemoglobin A1c was over 14%. He had low iron and low TIBC. CPK was 523, albumin 3.1. His urinalysis, no e
[2019-08-06 15:00] VITALS: BP 153/89; PULSE 118; RESP 18; TEMP 36.3; O2SAT 100
--- NOTE | 2019-08-06 15:29 | PM.IMPN ---
Progress Note: A&P Assessment and Plan (1) Osteomyelitis of metatarsal: Code(s): M86.9 - Osteomyelitis, unspecified Status: Acute Assessment and Plan: Rt foot Xray revealed osteomyelitis of the distal stump of the right 5th metatarsal. Pt is POD#4 s/p open amputation of the right 5th metatarsal. Pain is well-controlled. WBC is normal. Pt is afebrile. Blood cultures reveal NGTD. Preliminary wound culture obtained pre-operatively from the ulcer reveals Staphylococcus aureus and streptococcus milleri. S. aureus is susceptible to vacomycin and oxacillin (YESICA 0.5) on that culture. Intra-op cultures with MSSA as well. ID is on board and recommendations are greatly appreciated. Vancomycin will be switched to IV ceftriaxone. The pt will need 4 weeks of post-operative IV ceftriaxone. PICC line will be placed and case management is working on insurance coverage and home health. The pt may discharge tomorrow once this is arranged. Encourage elevation of the affected extremity Additional post-op care per Dr. Dumont/general surgery and the wound care team. The pt will need to follow-up with Dr. Dumont in the [facility] next week. (2) Acute kidney injury superimposed on chronic kidney disease: Code(s): N17.9 - Acute kidney failure, unspecified; N18.9 - Chronic kidney disease, unspecified Status: Acute Assessment and Plan: Pt has CKD at baseline. Cr from 11/2017 was 1.6. Cr is 1.6 and stable. I suspect that this is close to the patient's baseline. Renal US was WNL. Will trend Cr Pt will need to continue outpatient follow-up for his CKD. He reports that he has an appointment at [facility] in 2-3 weeks to establish care. (3) Type 2 diabetes mellitus, uncontrolled: Code(s): E11.65 - Type 2 diabetes mellitus with hyperglycemia Status: Acute Assessment and Plan: Pt has many complications of his uncontrolled diabetes and hyperglycemia including peripheral neuropathy, nephropathy, and gastroparesis. He understands the importance of gaining better glycemic control. Hb A1C >14%. Blood sugars reviewed and have improved but are still elevated. Increase lantus to 25 units Continue glipizide 5mg Dietitian and nurses educator consulted Continue high-dose SSI Accu-Checks Hypoglycemic protocol Pt will likely benefit from endocrinology consult at discharge as well (4) Hypertension: Code(s): I10 - Essential (primary) hypertension Status: Acute Assessment and Plan: Pt has hx of essential HTN and has been non-compliant with his antihypertensives. He was not on any antihypertensives prior to admission. BP has improved today. It was elevated this afternoon but the pt was very upset at this time. Continue amlodipine 10mg QD Lisinopril increased to 10mg QD today Hydralazine PRN until adequate BP control is obtained Continue to monitor BP closely (5) Chronic anemia: Code(s): D64.9 - Anemia, unspecified Status: Acute Assessment and Plan: Pt has chronic normocytic anemia which was present on prior labs from 11/2017. I suspect that this is due to his CKD. Hb and Hct are stable. Will continue to monitor (6) Noncompliance: Code(s): Z91.19 - Patient's noncompliance with other medical treatment and regimen Status: Acute Assessment and Plan: Pt has been non-compliant with the treatment of his diabetes and hypertension. I have discussed the risks of continued noncompliance including adverse CV outcomes, renal disease, etc. with the pt at length daily. He verbalized understanding and is motivated to make changes. He has been instructed to keep his appt to establish a PCP. He will need follow-up labs at this appt including CMP. (7) Microscopic hematuria: Code(s): R31.29 - Other microscopic hematuria Status: Acute Assessment and Plan: UA with microscopic hematuria. R
[2019-08-06 16:45] LABS: Glucose Point of Care 143 (65-105)
[2019-08-06 18:51] VITALS: BP 136/84; PULSE 112; RESP 16; TEMP 36.3; O2SAT 100
[2019-08-06 20:45] LABS: Glucose Point of Care 319 (65-105)
[2019-08-06] MEDS: INSULIN GLARGINE (*BKC) 100 UNITS/ML 25 UNITS SUB-Q (21:02)
[2019-08-06 21:17] VITALS: BP 150/94; PULSE 110; RESP 20; TEMP 36.4; O2SAT 100
[2019-08-06] MEDS: CENTRAL LINE FLUSH 10 ML IV PUSH (22:54)
[2019-08-07 01:00] VITALS: BP 138/85; PULSE 100; RESP 20; TEMP 36.1; O2SAT 100
[2019-08-07] MEDS: CENTRAL LINE FLUSH 20 ML IV PUSH (05:14)
[2019-08-07 05:32] LABS: Albumin Level 3.1 g/dL (3.5-5.1); Blood Urea Nitrogen 19 mg/dL (9-20); Calcium 8.6 mg/dL (8.4-10.2); Carbon Dioxide 31 mmol/L (22-30); Chloride 104 mmol/L (98-107); Estimated CRCL calculation 60 ml/min; Estimated Glomerular Filt Rate 48; Glucose 178 mg/dL (75-110); Potassium 4.1 mmol/L (3.4-5.0); Sodium 135 mmol/L (137-145)
[2019-08-07 06:28] VITALS: BP 149/93; PULSE 96; RESP 18; TEMP 36.2; O2SAT 99
[2019-08-07] MEDS: AMLODIPINE BESYLATE 5 MG TABLET 10 MG PO (07:55)
[2019-08-07] MEDS: glipiZIDE 5 MG TABLET PO (07:55)
[2019-08-07] MEDS: ENOXAPARIN 40 MG/0.4 ML SYRINGE SUB-Q (07:55)
[2019-08-07] MEDS: PANTOPRAZOLE SOD SESQUIHYDRATE 20 MG TAB PO (07:55)
[2019-08-07] MEDS: lisinopriL 10 MG TABLET PO (07:55)
[2019-08-07] MEDS: CENTRAL LINE FLUSH 10 ML IV PUSH (07:56)
[2019-08-07 10:00] VITALS: BP 128/80; PULSE 97; RESP 20; TEMP 36.7; O2SAT 100
[2019-08-07] MEDS: SILVERGEL (ELTA) 45 ML 1 APPLIC TOPICAL (10:36)
--- NOTE | 2019-08-07 10:59 | PM.DS ---
DS: Diagnosis Admitting Diagnosis Admitting Diagnosis: Osteomyelitis, unspecified Discharge Diagnosis (1) Osteomyelitis of metatarsal: Code(s): M86.9 - Osteomyelitis, unspecified Status: Acute Assessment and Plan: Right foot Xray on 08/01/19 revealed osteomyelitis of the distal stump of the right 5th metatarsal. Patient underwent open amputation of the right 5th metatarsal on 08/02/[address] Dumont. Pre-op wound cultures revealed Staph aureus and Strep milleri. Intra-operative cultures revealed MSSA. His white count remained within normal limits and he was afebrile. Wound care followed the patient and treated with Silver gel and dressing changes. He will follow up with Dr. Dumont and wound care team in one week. He was initially treated with Vancomycin but switched to IV Ceftriaxone based on culture sensitivity. He was encouraged to elevate the right extremity. Dr. Perkins followed the patient and recommended 4 weeks of IV antibiotic therapy. He will continue to receive IV Ceftriaxone via PICC line until 08/29/19. He will need to follow up with Dr. Perkins following completion of antibiotic therapy. (2) Type 2 diabetes mellitus, uncontrolled: Code(s): E11.65 - Type 2 diabetes mellitus with hyperglycemia Status: Acute Assessment and Plan: Patients diabetes is complicated by peripheral neuropathy, retinopathy, nephropathy, and gastroparesis. His blood sugars were extremely uncontrolled and A1c was found to be >14%. He was not taking any glycemic control medications due to reported issues with insurance coverage. The importance of glycemic control was stressed on multiple visits by several providers. He met with a adaptive physical educator. He was initiated on lantus 25 units qHS, glipizide 5 mg qDay, and sliding scale insulin during hospitalization. For purposes of improved compliance, he will start with addition of Lantus and Glipizide to his home regimen, and rapid acting insulin may be added at follow up at discretion of PCP. Patient may benefit from outpatient endocrinology referral. He was encouraged to record blood sugar and bring log to follow up appointment. (3) Acute kidney injury superimposed on chronic kidney disease: Code(s): N17.9 - Acute kidney failure, unspecified; N18.9 - Chronic kidney disease, unspecified Status: Acute Assessment and Plan: He has CKD with baseline creatinine approximately 1.6. Renal US was normal. At discharge, creatinine was stable at 1.6. His kidney function should be followed as an outpatient at the discretion of PCP. (4) Hypertension: Code(s): I10 - Essential (primary) hypertension Status: Acute Assessment and Plan: Pt has history of essential HTN and had been non-compliant with his antihypertensives. His blood pressure improved with addition of amlodipine, lisinopril, and prn hydralazine for added control. He was discharged with amlodipine and lisinopril. At discharge, blood pressure was 128/80. (5) Chronic anemia: Code(s): D64.9 - Anemia, unspecified Status: Acute Assessment and Plan: Pt has chronic normocytic anemia which was present on prior labs from 11/2017, likely due to CKD. Hemoglobin and hematocrit remained stable. He remained asymptomatic. (6) Microscopic hematuria: Code(s): R31.29 - Other microscopic hematuria Status: Acute Assessment and Plan: A routine UA revealed microscopic hematuria. Denied gross hematuria. Repeat UA is recommended as an outpatient at discretion of PCP. (7) GERD (gastroesophageal reflux disease): Code(s): K21.9 - Gastro-esophageal reflux disease without esophagitis Status: Acute Assessment and Plan: He was treated with Omeprazole. (8) Noncompliance: Code(s): Z91.19 - Patient's noncompliance with other medical treatment and regimen Status: Acute Assessment and Plan: We discussed the risks of continued noncomplianc
[2019-08-07 11:39] LABS: Glucose Point of Care 228 (65-105)
[2019-08-07 11:39] LABS: Glucose Point of Care 198 (65-105)
[2019-08-07] MEDS: INSULIN ASPART (*BKC) 100 UNITS/ML SUB-Q (11:52)
--- NOTE | 2019-08-07 13:43 | WPDINFPN2 ---
Progress Note: A&P Assessment and Plan (1) Osteomyelitis of metatarsal: Code(s): M86.9 - Osteomyelitis, unspecified Status: Acute Assessment and Plan: 1. Osteomyelitis of the R 5th MT. Clinically acute, histopath = acute and chronic. POD # 5. Stable status. 2. Past 5th toe amputation 2 years ago, did not require half-way IV therapy 3. DM, poor control REC Ctx #2 (antibiotic #7), IV therapy through 08/28. Glycemic control. Ok discharge anytime, f/u with me in office week of 08/27/19. He is trying to speak with his primary physician for instructions on his Dm meds. Subjective Date/time seen: 08/07/19 13:43 Interval history: Increased intestinal gas, no diarrhea, no abd pain. No rash nor itching. iv in place Exam Narrative: Exam Narrative: afebrile Const: General: no acute distress Eyes: General: appearance normal, both eyes and all related structures Resp: Effort & Inspection: normal respiratory effort Auscultation: clear to auscultation bilaterally Cardio: Rate: regular rate Rhythm: regular rhythm Heart sounds: no gallops and no murmurs GI: Inspection: non-distended GI Palp: Yes Soft to palpation and No Tenderness to palpation present (GI) Skin: General skin exam: normal color and no rashes or lesions noted Extrem: Right lower extremity: normal to inspection Other: dressing in place, no proximal erythema nor tenderness nor warmth Objective Data Vital Signs Vital Signs: Vital Signs - 24 hr 08/06/19 15:00 08/06/19 18:51 08/06/19 21:17 Temperature 36.3 C L 36.3 C L 36.4 C L Pulse Rate 118 H 112 H 110 H Respiratory Rate 18 16 20 Blood Pressure 153/89 H 136/84 150/94 H Pulse Oximetry 100 100 100 08/07/19 01:00 08/07/19 06:28 08/07/19 10:00 Temperature 36.1 C L 36.2 C L 36.7 C Pulse Rate 100 96 97 Respiratory Rate 20 18 20 Blood Pressure 138/85 149/93 H 128/80 Pulse Oximetry 100 99 100 Intake/Output Intake/Output: Intake & Output 08/04/19 08/05/19 08/06/19 08/07/19 23:59 23:59 23:59 23:59 Intake Total 2950 2400 2815 980 Output Total 950 600 Balance 1999 2400 2815 380 Meds/Results Medications: Active Medications Generic Name Dose Route Start Last Admin Trade Name Freq PRN Reason Stop Dose Admin Acetaminophen 500 mg 08/02/19 16:30 Tylenol Tablet PO Q6H PRN Mild Pain (1-3) or Fever Hydrocodone Bitart/Acetaminophen 1 tab 08/02/19 16:30 08/04/19 21:35 Lamar 5-325 Mg PO 1 tab Q4H PRN Administration Pain Rated 4-6 Hydrocodone Bitart/Acetaminophen 1 tab 08/02/19 16:30 Lamar 7.5-325 Mg PO Q4H PRN Pain Rated 7-10 Amlodipine Besylate 10 mg 08/04/19 16:06 08/07/19 07:55 Norvasc PO 10 mg QAM KEEGAN Administration Dextrose 12.5 gm 08/02/19 01:27 Dextrose 50% Syringe IV PUSH PRN PRN Hypoglycemia Protocol Enoxaparin Sodium 40 mg 08/05/19 09:00 08/07/19 07:55 Lovenox SUB-Q 40 mg DAILY KEEGAN Administration Glipizide 5 mg 08/03/19 08:35 08/07/19 07:55 Glucotrol PO 5 mg DAILY@0630 KEEGAN Administration Glucagon 1 mg 08/02/19 01:27 Glucagon For Inj IM PRN PRN Hypoglycemia Protocol Glucose 15 gm 08/02/19 01:27 Glutose 15 PO PRN PRN Hypoglycemia Protocol Hydralazine HCl 10 mg 08/05/19 08:53 Apresoline Hcl Inj IV PUSH Q6H PRN Hypertension Dextrose 1,000 mls @ 100 mls/hr 08/02/19 01:27 Dextrose 5% 1,000 Ml IVPB PRN PRN Hypoglycemia Protocol Ceftriaxone Sodium 2 gm in 100 mls @ 200 mls/hr 08/06/19 13:25 08/07/19 08:26 Rocephin 2 Gm/D5w 100 Ml IVPB Infused QAM KEEGAN Infusion Insulin Aspart 4 - 8 units 08/03/19 08:00 08/07/19 11:52 Novolog SUB-Q 4 units TIDWM KEEGAN Administration Protocol Insulin Glargine 25 units 08/06/19 07:08 08/06/19 21:02 Lantus SUB-Q 25 units HS KEEGAN Administration Lisinopril 10 mg 08/06/19 09:00 08/07/19 07:55 Prinivil PO 10 mg QAM S
== END 2019-08-07 13:55 | disposition home health service (06) | DRG 617 ==
LOC: ANHED 17:28 → ANH3MEDSUR 18:00 → ANH2MED 18:39
PROVIDERS: Physician Assistant; Surgery; Admitting Provider Internal Medicine; Emergency Provider Emergency Medicine; Visit Provider Physician Assistant
PROC: 0Y6M0ZF Detachment at Right Foot, Partial 5th Ray, Open Approach (ICD-10-PCS; principal; 2019-08-02 14:00)
DX: E11.69 Type 2 diabetes mellitus with other specified complication (principal); M86.171 Other acute osteomyelitis, right ankle and foot; E11.621 Type 2 diabetes mellitus with foot ulcer; L97.519 Non-pressure chronic ulcer of other part of right foot with unspecified severity; B95.61 Methicillin susceptible Staphylococcus aureus infection as the cause of diseases classified elsewhere; B95.4 Other streptococcus as the cause of diseases classified elsewhere; I12.9 Hypertensive chronic kidney disease with stage 1 through stage 4 chronic kidney disease, or unspecified chronic kidney disease; E11.22 Type 2 diabetes mellitus with diabetic chronic kidney disease; N18.3 Chronic kidney disease, stage 3 (moderate); E11.65 Type 2 diabetes mellitus with hyperglycemia; E11.42 Type 2 diabetes mellitus with diabetic polyneuropathy; E11.21 Type 2 diabetes mellitus with diabetic nephropathy; E11.319 Type 2 diabetes mellitus with unspecified diabetic retinopathy without macular edema; E11.43 Type 2 diabetes mellitus with diabetic autonomic (poly)neuropathy; K31.84 Gastroparesis; N17.9 Acute kidney failure, unspecified; D64.9 Anemia, unspecified; R31.29 Other microscopic hematuria; K21.9 Gastro-esophageal reflux disease without esophagitis; M19.90 Unspecified osteoarthritis, unspecified site; F31.9 Bipolar disorder, unspecified; Z91.19 Patient's noncompliance with other medical treatment and regimen; Z87.891 Personal history of nicotine dependence
CPT/HCPCS: 36415; 36569; 36600; 73620; 76775; 80048; 80053; 80061; 80069; 80202; 81001; 82010; 82550; 82607; 82728; 82746; 82805; 82948; 83036; 83540; 83550; 83605; 83735; 84100; 84466; 85025; 85027; 85610; 85730; 86140; 87040; 87070; 87075; 87077; 87147; 87186; 87205; 88305; 88309; 88311; 96365; 96367; 96368; 99285; A9270; C1751; J0360; J0696; J0743; J1650; J1815; J2250; J2405; J2543; J2704; J3010; J3370; J7030; J7050; J7120

== ENCOUNTER 2019-08-13 14:17 | Outpatient (RCR) | payer MEDICAID, SELFPAY ==
[2019-08-09 12:09] LABS: Basophils Percent Auto 0.4 % (0.2-1.2); Eosinophils Absolute Auto 0.1 K/mm3 (0-0.3); Eosinophils Percent Auto 1.1 % (0-4.4); Hematocrit 35.4 % (42.0-52.0); Hemoglobin 11.3 g/dL (14.0-18.0); Immature Granulocyte Absolute 0.04 K/mm3 (0.00-0.031); Immature Granulocyte Percent A 0.4 % (0-0.5); Lymphocytes Absolute Auto 1.94 K/mm3 (0.9-3.2); Lymphocytes Percent Auto 20.6 % (18.3-44.2); Mean Corpuscular HGB Conc 31.9 g/dl (32-36); Mean Corpuscular Hemoglobin 26.6 pg (26-34); Mean Corpuscular Volume 83.3 fl (80-100); Mean Platelet Volume 10.9 fl (7.4-10.4); Monocytes Absolute Auto 0.7 K/mm3 (0.1-0.6); Monocytes Percent Auto 7.7 % (2.6-8.5); Neutrophils Absolute Auto 6.6 K/mm3 (1.3-6.7); Neutrophils Percent Auto 69.8 % (45.5-73.1); Platelet Count Result 325 k/mm3 (150-375); Red Blood Count 4.25 M/mm3 (4.6-6.20); Red Cell Distribution Width 12.7 % (11.5-14.5); White Blood Count 9.4 K/mm3 (4.5-10.0)
[2019-08-09 12:13] LABS: Blood Urea Nitrogen 40 mg/dL (9-20); Calcium 8.8 mg/dL (8.4-10.2); Carbon Dioxide 27 mmol/L (22-30); Chloride 102 mmol/L (98-107); Estimated Glomerular Filt Rate 52; Glucose 197 mg/dL (75-110); Potassium 4.6 mmol/L (3.4-5.0); Sodium 135 mmol/L (137-145)
[2019-08-13 14:47] LABS: Hematocrit 35.5 % (42.0-52.0); Hemoglobin 11.2 g/dL (14.0-18.0); Mean Corpuscular HGB Conc 31.5 g/dl (32-36); Mean Corpuscular Hemoglobin 26.7 pg (26-34); Mean Corpuscular Volume 84.7 fl (80-100); Mean Platelet Volume 11.1 fl (7.4-10.4); Platelet Count Result 329 k/mm3 (150-375); Red Blood Count 4.19 M/mm3 (4.6-6.20); Red Cell Distribution Width 13.3 % (11.5-14.5); White Blood Count 9.2 K/mm3 (4.5-10.0)
[2019-08-13 15:05] LABS: Alanine Aminotransferase 34 U/L (4-50); Albumin Level 3.7 g/dL (3.5-5.1); Alkaline Phosphatase 136 U/L (38-126); Aspartate Amino Transferase 32 U/L (17-59); Bilirubin,Total 0.2 mg/dL (0.2-1.3); Blood Urea Nitrogen 52 mg/dL (9-20); CRP 0.8 mg/dL (<1.0); Calcium 8.6 mg/dL (8.4-10.2); Carbon Dioxide 26 mmol/L (22-30); Chloride 103 mmol/L (98-107); Estimated Glomerular Filt Rate 44; Glucose 133 mg/dL (75-110); Potassium 4.6 mmol/L (3.4-5.0); Sodium 134 mmol/L (137-145)
== END 2019-08-20 10:17 | disposition home or self-care (01) ==
LOC: HOME HLTH 14:17
PROVIDERS: PCP Internal Medicine Infectious Disease; Visit Provider Internal Medicine Infectious Disease
DX: E11.621 Type 2 diabetes mellitus with foot ulcer (principal); L97.511 Non-pressure chronic ulcer of other part of right foot limited to breakdown of skin; M86.9 Osteomyelitis, unspecified; Z79.2 Long term (current) use of antibiotics
CPT/HCPCS: 80048; 80053; 85025; 85027; 86140

== ENCOUNTER 2019-08-27 11:07 | Outpatient (RCR) | payer MEDICAID, SELFPAY ==
[2019-08-20 10:34] LABS: Basophils Absolute Auto 0.1 K/mm3 (0.0-0.1); Basophils Percent Auto 0.7 % (0.2-1.2); Eosinophils Absolute Auto 0.1 K/mm3 (0-0.3); Eosinophils Percent Auto 1.5 % (0-4.4); Hemoglobin 10.5 g/dL (14.0-18.0); Immature Granulocyte Absolute 0.02 K/mm3 (0.00-0.031); Immature Granulocyte Percent A 0.2 % (0-0.5); Lymphocytes Absolute Auto 1.61 K/mm3 (0.9-3.2); Lymphocytes Percent Auto 19.6 % (18.3-44.2); Mean Corpuscular HGB Conc 30.9 g/dl (32-36); Mean Corpuscular Hemoglobin 26.5 pg (26-34); Mean Corpuscular Volume 85.9 fl (80-100); Mean Platelet Volume 11.6 fl (7.4-10.4); Monocytes Absolute Auto 0.7 K/mm3 (0.1-0.6); Monocytes Percent Auto 8.2 % (2.6-8.5); Neutrophils Absolute Auto 5.7 K/mm3 (1.3-6.7); Neutrophils Percent Auto 69.8 % (45.5-73.1); Platelet Count Result 236 k/mm3 (150-375); Red Blood Count 3.96 M/mm3 (4.6-6.20); Red Cell Distribution Width 13.4 % (11.5-14.5); White Blood Count 8.2 K/mm3 (4.5-10.0)
[2019-08-20 11:34] LABS: Blood Urea Nitrogen 59 mg/dL (9-20); CRP 0.6 mg/dL (<1.0); Calcium 8.5 mg/dL (8.4-10.2); Carbon Dioxide 24 mmol/L (22-30); Chloride 105 mmol/L (98-107); Estimated Glomerular Filt Rate 44; Glucose 149 mg/dL (75-110); Potassium 4.5 mmol/L (3.4-5.0); Sodium 135 mmol/L (137-145)
[2019-08-23 10:33] LABS: Basophils Absolute Auto 0.1 K/mm3 (0.0-0.1); Basophils Percent Auto 0.7 % (0.2-1.2); Eosinophils Absolute Auto 0.1 K/mm3 (0-0.3); Eosinophils Percent Auto 1.9 % (0-4.4); Hematocrit 34.6 % (42.0-52.0); Hemoglobin 10.8 g/dL (14.0-18.0); Immature Granulocyte Absolute 0.02 K/mm3 (0.00-0.031); Immature Granulocyte Percent A 0.3 % (0-0.5); Lymphocytes Absolute Auto 1.82 K/mm3 (0.9-3.2); Lymphocytes Percent Auto 25.3 % (18.3-44.2); Mean Corpuscular HGB Conc 31.2 g/dl (32-36); Mean Corpuscular Hemoglobin 26.4 pg (26-34); Mean Corpuscular Volume 84.6 fl (80-100); Monocytes Absolute Auto 0.7 K/mm3 (0.1-0.6); Neutrophils Absolute Auto 4.5 K/mm3 (1.3-6.7); Neutrophils Percent Auto 62.8 % (45.5-73.1); Platelet Count Result 240 k/mm3 (150-375); Red Blood Count 4.09 M/mm3 (4.6-6.20); Red Cell Distribution Width 13.3 % (11.5-14.5); White Blood Count 7.2 K/mm3 (4.5-10.0)
[2019-08-23 10:41] LABS: Blood Urea Nitrogen 65 mg/dL (9-20); Calcium 9.3 mg/dL (8.4-10.2); Carbon Dioxide 27 mmol/L (22-30); Chloride 106 mmol/L (98-107); Estimated Glomerular Filt Rate 33; Glucose 91 mg/dL (75-110); Potassium 4.7 mmol/L (3.4-5.0); Sodium 138 mmol/L (137-145)
[2019-08-27 11:46] LABS: Blood Urea Nitrogen 63 mg/dL (9-20); CRP < 0.5 mg/dL (<1.0); Calcium 8.5 mg/dL (8.4-10.2); Carbon Dioxide 24 mmol/L (22-30); Chloride 103 mmol/L (98-107); Estimated Glomerular Filt Rate 42; Glucose 186 mg/dL (75-110); Potassium 4.9 mmol/L (3.4-5.0); Sodium 133 mmol/L (137-145)
[2019-08-27 11:56] LABS: Basophils Percent Auto 0.7 % (0.2-1.2); Eosinophils Absolute Auto 0.1 K/mm3 (0-0.3); Eosinophils Percent Auto 2.2 % (0-4.4); Hematocrit 33.5 % (42.0-52.0); Hemoglobin 10.6 g/dL (14.0-18.0); Immature Granulocyte Absolute 0.01 K/mm3 (0.00-0.031); Immature Granulocyte Percent A 0.2 % (0-0.5); Lymphocytes Absolute Auto 1.44 K/mm3 (0.9-3.2); Lymphocytes Percent Auto 24.4 % (18.3-44.2); Mean Corpuscular HGB Conc 31.6 g/dl (32-36); Mean Corpuscular Volume 85.5 fl (80-100); Monocytes Absolute Auto 0.5 K/mm3 (0.1-0.6); Neutrophils Absolute Auto 3.7 K/mm3 (1.3-6.7); Neutrophils Percent Auto 63.5 % (45.5-73.1); Platelet Count Result 210 k/mm3 (150-375); Red Blood Count 3.92 M/mm3 (4.6-6.20); Red Cell Distribution Width 13.4 % (11.5-14.5); White Blood Count 5.9 K/mm3 (4.5-10.0)
== END 2019-11-18 23:59 | disposition home or self-care (01) ==
LOC: HOME HLTH 11:07
PROVIDERS: PCP Internal Medicine Infectious Disease; Visit Provider Internal Medicine Infectious Disease
DX: M86.9 Osteomyelitis, unspecified (principal); E11.621 Type 2 diabetes mellitus with foot ulcer; L97.511 Non-pressure chronic ulcer of other part of right foot limited to breakdown of skin; Z79.2 Long term (current) use of antibiotics
CPT/HCPCS: 80048; 85025; 86140

== ENCOUNTER 2019-11-01 07:34 | Outpatient (RCR) | payer BC, OTHER, MEDICAID, SELFPAY ==
[2019-08-13 08:22] VITALS: BMI 25.4
--- NOTE | 2019-08-16 12:16 | WPDWOUNDNOTE ---
Wound Care Note Date/Time: 08/13/19 07:50 Patient seen in the wound clinic after recent discharge from hospital. No new complaints or problems. Patient has been using silver gel with gauze and wrapping with Harris wrap to right 5th transmetatarsal amputation wound. He is continuing IV antibiotics. Assessment and Plan Assessment and plan (1) Osteomyelitis of metatarsal: Code(s): M86.9 - Osteomyelitis, unspecified Status: Acute Assessment and Plan: healing well after resection of the 5th metatarsal. Will wound is healing. Continue silver gel dressings daily and wrap with Harris wrap. Recheck again in 2 weeks. (2) Diabetic infection of right foot: Code(s): E11.628 - Type 2 diabetes mellitus with other skin complications; L08.9 - Local infection of the skin and subcutaneous tissue, unspecified Status: Acute Assessment and Plan: Continues IV antibiotics for full course of therapy. (3) Type 2 diabetes mellitus, uncontrolled: Code(s): E11.65 - Type 2 diabetes mellitus with hyperglycemia Status: Acute Assessment and Plan: Patient reports his diabetic control is much better since discharge from the hospital. (4) Chronic kidney disease, stage 3: Code(s): N18.3 - Chronic kidney disease, stage 3 (moderate) Status: Acute Review of Systems Review of Systems: All systems reviewed & are unremarkable except as noted in HPI and below ( HPI) Constitutional: Constitutional: Denies anorexia, Denies body ache(s), Denies chills and Denies fever(s) Exam Extrem: Right lower extremity: foot ( proximal area healing well. Distal area open but granulating) Details: other ( 3 x 4 cm open area with 0.5 cm depth, smaller and healing)
--- NOTE | 2019-08-27 09:34 | P.PNWOUND_ITS ---
Wound Care Note Date/Time: 08/27/19 09:34 Patient again seen in the wound clinic. He was last seen on August 12. At that time the proximal area of the amputation site has nearly closed. The distal area was about 3 x 4 cm in size with 0.5 cm depth. The patient had his 5th metatarsal amputation done on August 02, 2019. He has been applying silver gel gauze and a loose Harris wrap around the foot for wound care on a daily basis. He has no new complaints or problems. He continues on IV antibiotic therapy. He would like to return to work on TuesdaySeptember 02 with minimal walking. Assessment and Plan Assessment and plan (1) Osteomyelitis of metatarsal: Code(s): M86.9 - Osteomyelitis, unspecified Status: Acute Assessment and Plan: right 5th metatarsal amputation wound continues to heal. Continue silver gel dressing changes but place Mepilex transfer over the wound then place gauze and Harris wrap. He can return to work on Tuesday without excessive walking. I will see him back in the wound clinic in 2 weeks. Seems to be healing very well. Silver nitrate cautery used for areas of hypertrophic granulation tissue as not ed above. (2) Diabetic infection of right foot: Code(s): E11.628 - Type 2 diabetes mellitus with other skin complications; L08.9 - Local infection of the skin and subcutaneous tissue, unspecified Status: Acute Assessment and Plan: Continues on IV antibiotics to complete therapy. (3) Type 2 diabetes mellitus, uncontrolled: Code(s): E11.65 - Type 2 diabetes mellitus with hyperglycemia Status: Chronic Assessment and Plan: Patient reports much better diabetic control. He is working hard to try to keep his diabetes under good control. (4) Chronic kidney disease, stage 3: Code(s): N18.3 - Chronic kidney disease, stage 3 (moderate) Status: Chronic Review of Systems Constitutional: Constitutional: Denies body ache(s), Denies chills and Denies fever(s) Exam Extrem: Right lower extremity: foot ( Proximal amputation site closed, distal open area smaller and granulating) Other: proximal area of TM amputation wound is closed except for a 3 mm superficial opening that is healing. The more distal aspect is smaller but does have some gelatinous slough that was removed. There was also some hypertrophic granulation tissue in the wound that was treated with silver nitrate cautery. The wound was 3 cm in length at the previous visit and is now only 2 cm in length. The width was 4 cm and is now 3.6 cm. The depth is about the same at 0.5 cm. Patient reports the gauze is sticking to the wound in pulling off with each dressing change. We will put Mepilex transfer over the silver gel then placed gauze and Harris wrap to avoid this. He will clean the wound with soap and water prior to each dressing change as well.
--- NOTE | 2019-09-10 12:10 | P.PNWOUND_ITS ---
Wound Care Note Date/Time: 09/10/19 12:10 Patient is seen again today in the wound clinic. No new complaints or problems. At his last visit, silver nitrate cautery was applied to some hypertrophic granulation tissue in the open distal wound. He has been using Mepilex transfer and silver gel to the open area of the distal wound on a daily basis. He also washes with soap and water daily. He was given a note to return to work on September 02. Unfortunately the node did not specify that he was to return with limited walking. He requested a note to return to work September 12 but with limited standing and limited walking. This seems reasonable as he is still healing from his right 5th transmetatarsal amputation. He is seen now in follow- up. He finished his antibiotics last month. Assessment and Plan Assessment and plan (1) Osteomyelitis of metatarsal: Code(s): M86.9 - Osteomyelitis, unspecified Status: Acute Assessment and Plan: transmetatarsal amputation wound continues to improve. Surgery was August 02, 2019. He is about 5 and half weeks from his surgery. Note was given to specify he could return to work in bag a but not to walk over 20-30 yd at a time. He is also not to stand more than 15-20 minutes at a time. I will see him again in wound clinic in 3 weeks. He finished his antibiotics in August. (2) Type 2 diabetes mellitus: Code(s): E11.9 - Type 2 diabetes mellitus without complications Status: Acute Assessment and Plan: Better diabetic control. (3) Chronic kidney disease, stage 3: Code(s): N18.3 - Chronic kidney disease, stage 3 (moderate) Status: Chronic Review of Systems Constitutional: Constitutional: Denies body ache(s), Denies chills, Denies fever(s) and Denies night sweats Exam Const: General: cooperative, comfortable, well developed, alert and awake Nutritional Appearance: average body habitus Orientation/consciousness: patient oriented x3 Extrem: Left lower extremity: foot ( Proximal aspect of the TMA has healed. Distal open wound improved.) Other: Wound bed pink and granulating. Smaller in size. Now measures 1 x 3.1 x 0.3 cm.. Granulation tissue improved after silver nitrate treatment. No need for further silver nitrate treatment today.
--- NOTE | 2019-10-03 06:57 | WPDWOUNDNOTE ---
Wound Care Note Date/Time: 10/03/19 06:57 Patient seen again in wound clinic on October 02, 2019. He has no new complaints. Assessment and Plan Assessment and plan (1) Osteomyelitis of metatarsal: Code(s): M86.9 - Osteomyelitis, unspecified Status: Chronic Assessment and Plan: patient's 5th metatarsal amputation wound continues to heal nicely. Continue with silver gel with Mepilex transfer, gauze and wrap with Nori or Harris wrap. patient advised to see his primary care physician for referral to [facility] for long-term use status post 5th metatarsal amputation. Recheck in wound clinic in 3 weeks. May well be healed by that time. (2) Diabetic infection of right foot: Code(s): E11.628 - Type 2 diabetes mellitus with other skin complications; L08.9 - Local infection of the skin and subcutaneous tissue, unspecified Status: Resolved (3) Type 2 diabetes mellitus: Code(s): E11.9 - Type 2 diabetes mellitus without complications Status: Chronic Review of Systems Review of Systems: All systems reviewed & are unremarkable except as noted in HPI and below ( HPI) Exam Extrem: Right lower extremity: foot ( 5th metatarsal wound pink and granulating) Details: other ( Size decreased and more superficial, continues to heal)
== END 2019-11-11 23:59 | disposition home or self-care (01) ==
LOC: ANHWOC 07:34
PROVIDERS: PCP Internal Medicine Infectious Disease; Visit Provider Surgery
DX: Z47.81 Encounter for orthopedic aftercare following surgical amputation (principal); Z48.01 Encounter for change or removal of surgical wound dressing; Z89.421 Acquired absence of other right toe(s)
CPT/HCPCS: 99212; G0463

== ENCOUNTER 2019-11-13 12:10 | Outpatient (RCR) | payer OTHER, SELFPAY ==
[2019-11-12 00:01] VITALS: BMI 25.4
--- NOTE | 2019-11-13 12:46 | P.PNWOUND_ITS ---
Wound Care Note Date/Time: 11/13/19 12:46 Patient seen in follow-up in the wound clinic regarding open amputation right 5th metatarsal. The surgery was done for osteomyelitis of the 5th metatarsal. The patient had a previous transmetatarsal amputation prior to this surgery. His surgery was on August 01 of this year. He notes good improvement in the amputation wound and thinks it is healed. Assessment and Plan Assessment and plan (1) Osteomyelitis of metatarsal: Code(s): M86.9 - Osteomyelitis, unspecified Status: Chronic Assessment and Plan: Fifth metatarsal wound has healed. No need for further follow-up with me. Patient was recommended to see [facility] or a high school learning support teacher for orthotics. He will call if wound should open or developed problems in the future. Continue medical care for diabetic control. Review of Systems Review of Systems: All systems reviewed & are unremarkable except as noted in HPI and below ( HPI and below) Constitutional: Constitutional: Denies body ache(s), Denies chills, Denies fever(s) and Denies lethargy Exam Const: General: comfortable and no acute distress; No confusion Orientation/consciousness: patient oriented x3 and No confusion Neuro: General: patient oriented x3, no focal motor deficits and No confusion Extrem: Right lower extremity: foot Details: no edema and other ( 5th metatarsal wound has completely epithelialized. Some callus over it and this was removed.); no tenderness and no unusual warmth Psych: Affect: normal affect Insight: Good insight present (Psych) Judgement: Good judgement present (Psych)
== END 2020-01-28 08:11 | disposition home or self-care (01) ==
LOC: ANHWOC 12:10
PROVIDERS: PCP Internal Medicine Infectious Disease; Visit Provider Surgery
DX: Z47.81 Encounter for orthopedic aftercare following surgical amputation (principal); Z89.421 Acquired absence of other right toe(s)
CPT/HCPCS: 99212; G0463

== ENCOUNTER 2021-04-15 20:27 | Observation (INO) | payer OTHER, SELFPAY ==
--- NOTE | ~2021-04-15 | XR_ITS ---
EXAMINATION: XR toe 1st LT min 2V EXAM DATE: 04/15/2021 23:10 INDICATION: Toe wound noticed 3 days ago. Diabetic. TECHNIQUE: Left 1st toe frontal, lateral and oblique projections obtained and reviewed. There is n o prior study for comparison. FINDINGS: There is wound along the distal aspect of the left 1st toe. There are no bony erosions lamberto ntified. There are no acute fractures or dislocations identified. There is no subcutaneous gas. The soft tissue is unremarkable. There are no radiopaque foreign bodies. IMPRESSION: No acute erosive change. Reviewed, dictated and finalized at location A. CIATE PROFESSOR OF ARCHAEOLOGY IMPRESSION: No acute erosive change.
--- NOTE | ~2021-04-15 | US_ITS ---
EXAMINATION: US renal BI EXAM DATE: 04/17/2021 16:27 INDICATION: Acute kidney insufficiency. TECHNIQUE: Multiple grayscale and Doppler images of the kidneys were obtained (by a technologist who performed the scan) and subsequently reviewed. Comparison is made to prior examination from 08/02/2019 . FINDINGS: There is moderate bilateral renal cortical thinning with prominent amount of renal hilar fa t bilaterally. Right kidney: There is normal contour and echogenicity. It measures 10.9 x 6.2 x 6.0 centimeters. T here are no focal renal lesions identified. There is no hydronephrosis. Left kidney: There is normal contour and echogenicity. It measures 12.0 x 6.1 x 5.8 centimeters. Th ere are no focal renal lesions identified. There is no hydronephrosis. Diffuse mild wall thickening at 6 mm, with some trabeculation. Could indicate chronic cystitis. IMPRESSION: 1. Renal cortical thinning, atrophy. 2. Mild diffuse bladder wall thickening, trabeculation consistent with chronic cystitis. 3. No hydronephrosis. Reviewed, dictated and finalized at location A. OGRAPHER PORTRAIT
--- NOTE | ~2021-04-15 | CT_ITS ---
EXAMINATION: CT foot LT wo con DATE: 04/16/2021 10:20 INDICATION: Left great toe ulcer. TECHNIQUE: Computed tomography (CT) of the left foot was performed without intravenous contrast. Auto mated exposure control and iterative reconstruction technique were employed. The dose-length product was 488.10 mGy-cm. COMPARISON: Left great toe radiographs 04/15/2021 FINDINGS: There is moderate hallux valgus. No fracture. There is mild osteoarthritis of first metatar sophalangeal joint, subtalar joint, ankle joint, some of the interphalangeal joints. There is an enth esophyte at posterior aspect of calcaneal tuberosity. There is an ulcer of the great toe. There is mobley bcutaneous edema in the foot. IMPRESSION: 1. No evidence of osteomyelitis. 2. Polyarticular osteoarthritis. Reviewed, dictated and finalized at location A. P CUTTER
[2021-04-15 20:37] VITALS: BP 134/86; PULSE 114; RESP 18; TEMP 36.1; O2SAT 100
--- NOTE | 2021-04-15 23:10 | ED.EXTPRO ---
HPI - Extremity Problem General Chief complaint: Extremity Problem,Nontraumatic Stated complaint: infected toe Time Seen by Provider: 04/15/21 22:53 Source: RN notes reviewed History of Present Illness HPI Narrative: Patient presents to emergency department from home for a wound on his left great toe states wound began 3 days ago with an ulcer at the base of the distal toe and is progressively worsened with redness of the toe into the foot he states he is a diabetic and does take his insulin but does not regularly check his sugars states he has a history of previous toe amputation in the past secondary to diabetic infection he denies any fevers or chills numbness or tingling in the extremities or any other symptoms Related Data Home Medications Medication Instructions Recorded Confirmed omeprazole 20 mg PO DAILY 08/03/19 08/13/19 Allergies Allergy/AdvReac Type Severity Reaction Status Date / Time bee stings Allergy Unknown Unknown Uncoded 04/15/21 20:40 Review of Systems Review of Systems: Gen.: Denies fevers or chills ENT: Denies congestion Respiratory: Denies shortness of breath or cough CV: Denies chest pain GI: Denies abdominal pain nausea, emesis Musculoskeletal: Denies back pain or muscle pain Neuro: Denies numbness, tingling, weakness or focal weakness Skin: See HPI Except as documented, all other systems reviewed and negative PMF Past Medical History Medical History (Updated 04/16/21 @ 01:03 by Mamadou Sood DO) Bipolar disorder Chronic anemia Chronic kidney disease, stage 3 Baseline creatinine appears to be between 1.60 and 1.80. Diabetic gastroparesis Diabetic retinopathy GERD (gastroesophageal reflux disease) History of GI bleed Secondary to esophagitis noted on EGD in November 2017. History of osteomyelitis Right 5th toe, status post amputation. History of suicide attempt Hypertension Type 2 diabetes mellitus, uncontrolled Complicated by retinopathy, nephropathy, neuropathy, and gastroparesis. Hemoglobin A1c 08/01/2019 was > 14%. Surgical History Surgical History Status post amputation of toe of right foot Right 5th toe due to osteomyelitis. Family History Family History Other Adopted Social History Social History Social History: The patient lives in [place] with his and their 3 children, 1 biological daughter and 2 step children. The patient is adopted and does not know any medical history regarding his biological parents. 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 He is a previous smoker, both cigars and cigarettes. He does smoke cannabis. He denies alcohol use. , Pari, is his surrogate decision maker and he wishes to be a full code. Additional smoking assessment comments: Gender identity (if verbalized by the patient): Male Spiritual care concerns: No Agree to blood products: Yes Exam Narrative: APPEARANCE: No acute distress, nontoxic, resting in bed EYES: EOMI HEENT: Normocephalic, atraumatic, OMM RESPIRATORY: No respiratory distress Clear to auscultation bilaterally with no rhonchi wheezing or rales. CARDIOVASCULAR: Regular rate and rhythm without murmurs rubs or gallops. ABDOMINAL: Soft, nontender, nondistended, no rebound or guarding MUSCULOSKELETAl: Moves all extremities. No clubbing, cyanosis or edema. Left dorsalis pedis pulse 2+ NEURO: Awake and alert. Following commands, speech normal, no focal deficits SKIN:: Warm, dry. The left great toe has a surgical ulcerative wound at the distal plantar aspect that is approximately 2 centers by 2 cm with mild serous drainage there is erythema of the toe extending into the midfoot PSYCHIATRIC: Normal affect/mood, Course Course Emergency Course: Discussed Dr. Duran presentation work-up agrees admission at this time Di
[2021-04-15 23:20] VITALS: BP 121/92; PULSE 99; RESP 16; O2SAT 98
[2021-04-15] MEDS: SODIUM CHLORIDE 0.9% IV 1,000 ML 999 ML IV CONT (23:53)
[2021-04-16 00:11] LABS: Lactic Acid Reflex 1.3 mmol/L (0.7-2.1)
[2021-04-16 00:18] LABS: Alanine Aminotransferase 12 U/L (4-50); Albumin Level 4.4 g/dL (3.5-5.1); Alkaline Phosphatase 86 U/L (38-126); Anion Gap 10 mmol/L (8-16); Aspartate Amino Transferase 24 U/L (17-59); Bilirubin,Total 0.7 mg/dL (0.2-1.3); Blood Urea Nitrogen 26 mg/dL (9-20); Calcium 9.2 mg/dL (8.4-10.2); Carbon Dioxide 26 mmol/L (22-30); Chloride 101 mmol/L (98-107); Estimated CRCL calculation 45 ml/min; Estimated Glomerular Filt Rate 35; Glucose 98 mg/dL (65-110); Potassium 4.4 mmol/L (3.4-5.0); Sodium 137 mmol/L (137-145)
[2021-04-16 00:30] LABS: Basophils Absolute Auto 0.1 K/mm3 (0.0-0.1); Basophils Percent Auto 0.7 % (0.2-1.2); Eosinophils Absolute Auto 0.1 K/mm3 (0-0.3); Eosinophils Percent Auto 1.3 % (0-4.4); Hematocrit 41.4 % (42.0-52.0); Hemoglobin 13.7 g/dL (14.0-18.0); Immature Granulocyte Absolute 0.01 K/mm3 (0.00-0.031); Immature Granulocyte Percent A 0.1 % (0-0.5); Lymphocytes Absolute Auto 1.51 K/mm3 (0.9-3.2); Lymphocytes Percent Auto 18.1 % (18.3-44.2); Mean Corpuscular HGB Conc 33.1 g/dl (32-36); Mean Corpuscular Hemoglobin 27.4 pg (26-34); Mean Corpuscular Volume 82.8 fl (80-100); Mean Platelet Volume 10.6 fl (7.4-10.4); Monocytes Absolute Auto 0.8 K/mm3 (0.1-0.6); Monocytes Percent Auto 9.5 % (2.6-8.5); Neutrophils Absolute Auto 5.8 K/mm3 (1.3-6.7); Neutrophils Percent Auto 70.3 % (45.5-73.1); Platelet Count Result 283 k/mm3 (150-375); Red Cell Distribution Width 13.2 % (11.5-14.5); White Blood Count 8.3 K/mm3 (4.5-10.0)
[2021-04-16 01:29] VITALS: BP 128/86; PULSE 96; RESP 16; O2SAT 99
[2021-04-16 02:00] VITALS: BMI 23.3
--- NOTE | 2021-04-16 03:28 | PM.IMHP ---
H&P: HPI History of Present Illness Date/Time: 04/16/21 03:28 Chief Complaint: Left toe ulcer Narrative: This is a 45-year-old male with past medical history significant for type 2 diabetes mellitus insulin dependent, chronic kidney disease, hypertension, dyslipidemia, GERD, right diabetic foot. Patient presented to the emergency room after he developed an ulcer at the base of the 1st left toe this happen in the last 3 days according to the patient he decided to come into the hospital before it got worse fearing an amputation, patient denies any fevers, rigors, chills, generalized malaise ,body aches, muscle pain, nausea ,vomiting or diarrhea, cough, sputum production, polydipsia, polyphagia or polyuria, he states that he does not check his sugars too often but every time he has done it it has been 140 or below. Preliminary workup has been essentially nonrevealing. Patient has been admitted for further management, evaluation and treatment. Review of Systems Review of Systems: Left diabetic toe ulcer Constitutional: Constitutional: Denies chills, Denies fatigue, Denies fever(s), Denies lethargy, Denies malaise, Denies night sweats, Denies poor appetite and Denies weakness Eyes: Eyes: Denies change in vision ENT: Denies dysphagia, Denies nasal congestion, Denies nasal discharge, Denies nasal obstruction and Denies odynophagia Cardiovascular: Cardiovascular: Denies claudication, Denies leg edema, Denies radiating jaw, neck or arm pain, Denies palpitations, Denies dyspnea on exertion and Denies orthopnea Respiratory: Respiratory: Denies cough and Denies dyspnea Gastrointestinal: Gastrointestinal: Denies dyspepsia, Denies heartburn, Denies diarrhea, Denies nausea and Denies vomiting Genitourinary: Genitourinary: Denies dysuria and Denies flank pain Musculoskeletal: Musculoskeletal: Denies myalgias, Denies arthralgias and Denies joint swelling Comments: Left big toe ulcer Integumentary/Breasts: Skin/Breast: Denies rash and Reports skin ulcer Comments: Left big toe Neurologic: Denies focal weakness, Denies Sensory deficit (Neuro) and Reports paresthesias Psychiatric: Psychiatric: Reports no additional psychiatric complaints and Reports as per HPI Endocrine: Endocrine: Denies polyphagia, Denies polydipsia and Denies polyuria Hematologic/Lymphatic: Hematologic/Lymphatic: Reports no additional hematologic/lymphatic complaints and Reports as per HPI Allergic/Immunologic: Allergic/Immunologic: Reports no additional allergic/immunologic complaints and Reports as per HPI [facility] Past Medical History Medical History (Updated 04/16/21 @ 03:38 by Nazario Cespedes MD) Bipolar disorder Chronic anemia Chronic kidney disease, stage 3 Baseline creatinine appears to be between 1.60 and 1.80. Diabetic gastroparesis Diabetic retinopathy GERD (gastroesophageal reflux disease) History of GI bleed Secondary to esophagitis noted on EGD in November 2017. History of osteomyelitis Right 5th toe, status post amputation. History of suicide attempt Hypertension Type 2 diabetes mellitus, uncontrolled Complicated by retinopathy, nephropathy, neuropathy, and gastroparesis. Hemoglobin A1c 08/01/2019 was > 14%. Surgical History Surgical History Status post amputation of toe of right foot Right 5th toe due to osteomyelitis. Family History Family History Other Adopted Social History Social History Social History: The patient lives in [place] with his and their 3 children, 1 biological daughter and 2 step children. The patient is adopted and does not know any medical history regarding his biological parents. 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 He is a previous smoker, both cigars and cigarettes. He does smoke cannabis. He denies alcohol use. , Pari, is his s
[2021-04-16 04:44] VITALS: BP 118/70; PULSE 89; RESP 21; TEMP 36.5; O2SAT 100
[2021-04-16] MEDS: SODIUM CHLORIDE 0.9% IV 1,000 ML 85 ML IV CONT (05:38)
[2021-04-16 06:00] VITALS: BP 120/67; PULSE 85; RESP 20; TEMP 36.6; O2SAT 98
[2021-04-16 07:55] LABS: Glucose Point of Care 61 mg/dl (65-105)
[2021-04-16] MEDS: SILVERGEL (ELTA) 45 ML 1 APPLIC TOPICAL (08:42)
[2021-04-16] MEDS: amLODIPine BESYLATE 5 MG TABLET 10 MG PO (08:42)
--- NOTE | 2021-04-16 10:23 | PM.CNGS ---
Assessment and Plan Assessment and plan (1) Open wound of left great toe: Code(s): S91.102A - Unspecified open wound of left great toe without damage to nail, initial encounter Status: Acute Assessment and Plan: The patient has a left great toe ulcer on the plantar aspect of his toe that appears to be superficial. There is no purulent drainage or concerns for a necrotizing soft tissue infection. Plain films did not show any evidence of osteomyelitis. We will initiate local wound care with silver gel dressing changes. CT scan of the left foot has been ordered, we will await these results. No indication for urgent surgical intervention at this time. Continue IV antibiotics. (2) Cellulitis of great toe of left foot: Code(s): L03.032 - Cellulitis of left toe Status: Acute Assessment and Plan: After clinically evaluating the wound and low suspicion of acute osteomyelitis, we would recommend narrowing his IV antibiotics. Discussed this with the Hospitalist. We will switch him to IV Ancef. Continue to monitor. Elevate left lower extremity when at rest. (3) Type 2 diabetes mellitus: Code(s): E11.9 - Type 2 diabetes mellitus without complications Status: Chronic Assessment and Plan: Glucose on admission 98. He does not monitor his blood glucose at home. He does report better compliance with his medications. HgbA1C ordered for morning labs. Continue to monitor. Management per Hospitalist. (4) Acute renal insufficiency: Code(s): N28.9 - Disorder of kidney and ureter, unspecified Status: Acute Assessment and Plan: Acute on chronic renal failure. Creatinine appears elevated above baseline. Continue IV fluid hydration. Monitor labs. Hospitalist held lisinopril. (5) Chronic kidney disease, stage 3: Code(s): N18.3 - Chronic kidney disease, stage 3 (moderate) Status: Chronic (6) Hypertension: Code(s): I10 - Essential (primary) hypertension Status: Acute (7) Diabetic gastroparesis: Code(s): E11.43 - Type 2 diabetes mellitus with diabetic autonomic (poly)neuropathy; K31.84 - Gastroparesis Status: Chronic Additional Plan I have discussed the patient's case and plan of care with Dr. Dumont. Thank you for allowing us to see the patient in consultation and we will continue to follow along with you. History of Present Illness Consult details Consult date: 04/16/21 Reason for consult: wound care (Diabetic left great toe infection) Requesting physician: Nazario Cespedes MD Narrative: This is a 45-year-old male with a history of insulin-dependent diabetes mellitus, diabetic gastroparesis, bipolar disorder, hypertension, chronic kidney disease, and previous episodes of right diabetic foot infections with osteomyelitis status post a right 5th toe amputation and open amputation of right 5th metatarsal. He is known to our service from his last surgery, when he was seen in July of 2019 for osteomyelitis of the right 5th metatarsal stump. He underwent open amputation of the right 5th metatarsal by Dr. Dumont on 08/02/2019 and was treated with an additional 4 weeks of IV antibiotics per ID. He healed well following surgery and reportedly has not had any complications since. The patient presented to the emergency department last night from home for evaluation of a wound on his left great toe. He reports first noticing a small wound 3 days ago on the plantar aspect of the great toe. Over the past 3 days, he began to notice some swelling and redness to the toe and left foot. This prompted him to go to the ER. He denies regularly checking his blood sugars, but reports being very compliant with his medications. In the ER, he was found to have a left great toe ulcer and x-ray showed no evidence of osteomyelitis. He was admitted to the hospitalist service for cellulitis and started on IV imipenem and vancomycin. Our service has been consulted to evaluate the left great
[2021-04-16 10:55] LABS: Hematocrit 39.2 % (42.0-52.0); Mean Corpuscular HGB Conc 33.2 g/dl (32-36); Mean Corpuscular Hemoglobin 26.9 pg (26-34); Mean Corpuscular Volume 81.2 fl (80-100); Mean Platelet Volume 10.9 fl (7.4-10.4); Platelet Count Result 294 k/mm3 (150-375); Red Blood Count 4.83 M/mm3 (4.6-6.20); Red Cell Distribution Width 13.1 % (11.5-14.5); White Blood Count 9.1 K/mm3 (4.5-10.0)
[2021-04-16 11:05] LABS: Anion Gap 7 mmol/L (8-16); Blood Urea Nitrogen 23 mg/dL (9-20); Calcium 8.8 mg/dL (8.4-10.2); Carbon Dioxide 25 mmol/L (22-30); Chloride 106 mmol/L (98-107); Estimated CRCL calculation 50 ml/min; Estimated Glomerular Filt Rate 39; Glucose 125 mg/dL (65-110); Potassium 4.2 mmol/L (3.4-5.0); Sodium 138 mmol/L (137-145)
[2021-04-16 11:09] LABS: Hemoglobin A1C 5.9 % (<5.7)
[2021-04-16 11:13] LABS: Glucose Point of Care 128 mg/dl (65-105)
[2021-04-16 11:13] LABS: Glucose Point of Care 110 mg/dl (65-105)
[2021-04-16] MEDS: PANTOPRAZOLE 40 MG TABLET PO (12:58)
[2021-04-16 14:00] VITALS: BP 115/62; PULSE 92; RESP 20; TEMP 37.1; O2SAT 98
--- NOTE | 2021-04-16 14:44 | PM.IMPN ---
Progress Note: A&P Assessment and Plan (1) Open wound of left great toe: Code(s): S91.102A - Unspecified open wound of left great toe without damage to nail, initial encounter Status: Acute Assessment and Plan: Left great toe ulcer. X-ray showed no acute erosive changes, no foreign body, unremarkable soft tissue, no subcutaneous gas. CT scan without evidence of osteomyelitis. Patient is afebrile, no leukocytosis Appreciate general surgery consultation. No indication for surgical intervention at this time Continue with IV antibiotics. Discussed with General surgery. Will transition from IV vancomycin and Primaxin to Ancef and will plan to continue with IV antibiotics for several days. Supportive care. Analgesics available as needed. Elevate extremity. Blood cultures are pending Wound cultures of left toe are pending (2) Cellulitis of great toe of left foot: Code(s): L03.032 - Cellulitis of left toe Status: Acute Assessment and Plan: Plan as above (3) Type 2 diabetes mellitus: Code(s): E11.9 - Type 2 diabetes mellitus without complications Status: Chronic Assessment and Plan: A1c is 5.9. Blood sugars have been well controlled this admission Continue Lantus, with 20% dose reduction Continue Accu-Cheks, sliding scale insulin, hypoglycemic protocol Hold home glipizide. Given his A1c of 5.9, he likely does not require glipizide any longer and will likely discontinue prior to discharge to prevent hypoglycemia. (4) Acute kidney injury superimposed on chronic kidney disease: Code(s): N17.9 - Acute kidney failure, unspecified; N18.9 - Chronic kidney disease, unspecified Status: Resolved Assessment and Plan: Baseline creatinine appears to be 1.6-1.7. Creatinine elevated up to 2.1 on admission. Likely prerenal in etiology given improvement with IV fluids. Creatinine is 1.9 today Will discontinue IV fluids as the patient has been adequately hydrated and is tolerating p.o. intake. Encourage oral fluid intake Lisinopril on hold Continue to monitor renal function closely and renally dose medications. Avoid nephrotoxic agents Repeat BMP tomorrow (5) Hypertension: Code(s): I10 - Essential (primary) hypertension Status: Acute Assessment and Plan: Blood pressure is well controlled today. Last BP 115/62 Lisinopril on hold Continue amlodipine Monitor blood pressure trends Subjective Date/time seen: 04/16/21 14:44 Interval history: Date of service: 04/16/2021 Dejan Sevilla is a 45 year old male with a history of diabetes mellitus, CKD stage 3, osteomyelitis with amputation of right 5th metatarsal, and hypertension who is seen in follow up for diabetic foot wound of the left great toe. He is feeling really well today. He offers no complaints at this time. He has no pain of his foot and he denies drainage. He stated there was some redness at the top of his foot but no streaking up the legs. He has poor sensation of his lower extremities. Denies fevers, chills, nausea, or vomiting. No diarrhea. Denies abdominal pain or cramping. He denies chest pain, palpitations, shortness of breath. He denies urinary symptoms. His appetite is good. He has no additional concerns. Review of Systems Review of Systems: All systems reviewed & are unremarkable except as noted in HPI and below Exam Narrative: Mr. Sevilla is a well-nourished, well-appearing 45-year-old male who is lying supine in bed. He appears comfortable and is in NARD. Neuro: awake, alert and oriented x4, speech clear, no focal neuro deficits noted HEENMT: normocephalic, atraumatic, EOMI, sclerae anicteric, moist oral mucosa Neck: supple, no lymphadenopathy Respiratory: clear to auscultation bilaterally, nonlabored breathing Cardio: regular rate, regular rhythm with S1-S2 Abdomen: nondistended, normoactive bowel sounds, soft, nontender to palpation E
[2021-04-16 16:21] LABS: Glucose Point of Care 97 mg/dl (65-105)
[2021-04-16 20:11] VITALS: BP 128/84; PULSE 93; RESP 16; TEMP 36.6; O2SAT 99
[2021-04-16 22:53] LABS: Glucose Point of Care 91 mg/dl (65-105)
[2021-04-17 03:37] VITALS: BP 124/76; PULSE 90; RESP 17; TEMP 36.3; O2SAT 97
[2021-04-17 06:28] LABS: Basophils Percent Auto 0.5 % (0.2-1.2); Eosinophils Absolute Auto 0.1 K/mm3 (0-0.3); Eosinophils Percent Auto 1.8 % (0-4.4); Hemoglobin 13.2 g/dL (14.0-18.0); Immature Granulocyte Absolute 0.03 K/mm3 (0.00-0.031); Immature Granulocyte Percent A 0.4 % (0-0.5); Lymphocytes Absolute Auto 1.88 K/mm3 (0.9-3.2); Lymphocytes Percent Auto 25.6 % (18.3-44.2); Mean Corpuscular Hemoglobin 26.6 pg (26-34); Mean Corpuscular Volume 80.6 fl (80-100); Mean Platelet Volume 10.2 fl (7.4-10.4); Monocytes Absolute Auto 0.6 K/mm3 (0.1-0.6); Monocytes Percent Auto 7.9 % (2.6-8.5); Neutrophils Absolute Auto 4.7 K/mm3 (1.3-6.7); Neutrophils Percent Auto 63.8 % (45.5-73.1); Platelet Count Result 302 k/mm3 (150-375); Red Blood Count 4.96 M/mm3 (4.6-6.20); Red Cell Distribution Width 12.9 % (11.5-14.5); White Blood Count 7.4 K/mm3 (4.5-10.0)
[2021-04-17 06:39] LABS: Anion Gap 7 mmol/L (8-16); Blood Urea Nitrogen 22 mg/dL (9-20); CRP 1.7 mg/dL (<1.0); Carbon Dioxide 26 mmol/L (22-30); Chloride 104 mmol/L (98-107); Estimated CRCL calculation 50 ml/min; Estimated Glomerular Filt Rate 39; Glucose 114 mg/dL (65-110); Potassium 4.2 mmol/L (3.4-5.0); Sodium 137 mmol/L (137-145)
[2021-04-17] MEDS: SILVERGEL (ELTA) 45 ML 1 APPLIC TOPICAL (08:23)
[2021-04-17] MEDS: PANTOPRAZOLE 40 MG TABLET PO (08:23)
[2021-04-17] MEDS: amLODIPine BESYLATE 5 MG TABLET 10 MG PO (08:23)
[2021-04-17 08:31] LABS: Glucose Point of Care 111 mg/dl (65-105)
--- NOTE | 2021-04-17 10:50 | PM.IMPN ---
Progress Note: A&P Assessment and Plan (1) Open wound of left great toe: Code(s): S91.102A - Unspecified open wound of left great toe without damage to nail, initial encounter Status: Acute Assessment and Plan: Left great toe ulcer. X-ray showed no acute erosive changes, no foreign body, unremarkable soft tissue, no subcutaneous gas. CT scan without evidence of osteomyelitis. Patient is afebrile, no leukocytosis Appreciate general surgery consultation. No indication for surgical intervention at this time Continue with IV Ancef. Supportive care. Analgesics available as needed. Elevate extremity. Blood cultures are pending Wound cultures of left toe are pending, await results and tailor antibiotics accordingly (2) Cellulitis of great toe of left foot: Code(s): L03.032 - Cellulitis of left toe Status: Acute Assessment and Plan: Plan as above (3) Type 2 diabetes mellitus: Code(s): E11.9 - Type 2 diabetes mellitus without complications Status: Chronic Assessment and Plan: A1c is 5.9. Blood sugars have been verywell controlled this admission Continue Lantus, with 20% dose reduction Continue Accu-Cheks, sliding scale insulin, hypoglycemic protocol Discontinue glipizide given his A1c to prevent hypoglycemia. (4) Acute kidney injury superimposed on chronic kidney disease: Code(s): N17.9 - Acute kidney failure, unspecified; N18.9 - Chronic kidney disease, unspecified Status: Resolved Assessment and Plan: Baseline creatinine appears to be 1.6-1.7. Creatinine elevated up to 2.1 on admission. Likely prerenal in etiology given improvement with IV fluids. Creatinine remaining mildly elevated 1.9 today He was hydrated with IV fluids and is now tolerating oral fluid intake Will obtain renal US Lisinopril on hold Continue to monitor renal function closely and renally dose medications. Avoid nephrotoxic agents Repeat BMP tomorrow (5) Hypertension: Code(s): I10 - Essential (primary) hypertension Status: Acute Assessment and Plan: Blood pressure is well controlled today. Last BP 124/76 Lisinopril on hold Continue amlodipine Monitor blood pressure trends Subjective Date/time seen: 04/17/21 10:50 Interval history: Date of service: 04/17/2021 Dejan Sevilla is a 45 year old male with a history of diabetes mellitus, CKD stage 3, osteomyelitis with amputation of right 5th metatarsal, and hypertension who is seen in follow up for diabetic foot wound of the left great toe. he continues to do well today. He has no pain of the left foot or toe, though he does have poor sensation of his extremities. He has not noticed any drainage or purulence, though he has not taken his foot out of the boot today. He denies nausea, vomiting, fever, or chills. No diarrhea. No abdominal pain. Appetite is good. Reports he is urinating regularly and denies dysuria. No shortness breath, cough, chest pain, palpitations. Review of Systems Review of Systems: All systems reviewed & are unremarkable except as noted in HPI and below Exam Narrative: Mr. Sevilla is a well-nourished, well-appearing 45-year-old male who is lying supine in bed. He appears comfortable and is in NARD. Neuro: awake, alert and oriented x4, speech clear, no focal neuro deficits noted HEENMT: normocephalic, atraumatic, EOMI, sclerae anicteric, moist oral mucosa Neck: supple, no lymphadenopathy Respiratory: clear to auscultation bilaterally, nonlabored breathing Cardio: regular rate, regular rhythm with S1-S2 Abdomen: nondistended, normoactive bowel sounds, soft, nontender to palpation Extremities: Left foot in walking boot. Removed to evaluate the foot. No erythema, or edema. The toe is wrapped and the dressing is scant serous discharge. Non malodorous. Able to wiggle his toes. Brisk capillary refill. Diminished sensation of extremities. Right
--- NOTE | 2021-04-17 11:25 | PM.PNGS ---
Progress Note: A&P Assessment and Plan (1) Open wound of left great toe: Code(s): S91.102A - Unspecified open wound of left great toe without damage to nail, initial encounter Status: Chronic Assessment and Plan: continue silver gel dressing changes daily to left great toe ulcer, also continue to wear fitted Cam walking boot. I would see the patient in the office in about 2 weeks. Can be discharged when okay with hospitalist. (2) Cellulitis of great toe of left foot: Code(s): L03.032 - Cellulitis of left toe Status: Acute Assessment and Plan: Possibly home tomorrow on oral antibiotics. As above I can see him in the office in 2 weeks to continue care of the toe ulcer. Subjective Subjective Date/Time Seen: 04/17/21 11:25 Patient reports: no new complaints Review of Systems Review of Systems: All systems reviewed & are unremarkable except as noted in HPI and below Constitutional: Constitutional: Denies chills, Denies fever(s), Denies headache(s) and Denies poor appetite Cardiovascular: Cardiovascular: Denies chest pain, Denies diaphoresis, Denies dyspnea and Denies paroxysmal nocturnal dyspnea Respiratory: Respiratory: Denies chest congestion, Denies cough and Denies dyspnea Integumentary/Breasts: Skin/Breast: Denies lesions and Denies rash Exam Const: General: comfortable and no acute distress; No confusion Orientation/consciousness: patient oriented x3 and No confusion Neuro: General: patient oriented x3, no focal motor deficits and No confusion Extrem: General: no calf tenderness and no edema Left lower extremity: foot (Great toe ulcer looks conduit cleaner, starting to granulate) Psych: Affect: normal affect Insight: Good insight present (Psych) Judgement: Good judgement present (Psych) Objective Data Vital Signs Vital Signs: Vital Signs - 24 hr 04/16/21 14:00 04/16/21 20:11 04/17/21 03:37 Temperature 37.1 C 36.6 C 36.3 C L Pulse Rate 92 93 90 Respiratory Rate 20 16 17 Blood Pressure 115/62 128/84 124/76 Pulse Oximetry 98 99 97 Intake/Output Intake/Output: Intake & Output 04/14/21 04/15/21 04/16/21 04/17/21 23:59 23:59 23:59 23:59 Intake Total 3570 930 Output Total 1700 Balance 1870 930 Meds/Results Medications: Active Medications Generic Name Dose Route Start Last Admin Trade Name Freq PRN Reason Stop Dose Admin Amlodipine Besylate 10 mg 04/16/21 09:00 04/17/21 08:23 Amlodipine Besylate 5 Mg Tablet PO 10 mg QAM KEEGAN Administration Dextrose 12.5 gm 04/16/21 15:01 Dextrose 50% 25 Gm/50 Ml Syringe IV PUSH PRN PRN Hypoglycemia Protocol Glucagon 1 mg 04/16/21 15:01 Glucagon For Inj 1 Mg Vial IM PRN PRN Hypoglycemia Protocol Glucose 15 gm 04/16/21 15:01 Glucose Oral Gel 15 Gm Of Glucse In 37.5 Gm Tube PO PRN PRN Hypoglycemia Protocol Dextrose 1,000 mls @ 100 mls/hr 04/16/21 15:01 Dextrose 5% 1,000 Ml IVPB PRN PRN Hypoglycemia Protocol Cefazolin Sodium 1 gm in 50 mls @ 100 mls/hr 04/16/21 15:15 04/17/21 06:32 Ancef 1 Gm/D5w 50 Ml Pm IVPB Infused Q8HR KEEGAN Infusion Insulin Aspart 2 - 5 units 04/16/21 17:00 04/17/21 08:23 Insulin Aspart (*Bkc) 100 Units/Ml SUB-Q Not Given [facility] Protocol Insulin Glargine 20 units 04/16/21 21:00 04/16/21 23:23 Insulin Glargine (*Bkc) 100 Units/Ml SUB-Q Not Given HS KEEGAN Pantoprazole Sodium 40 mg 04/16/21 09:00 04/17/21 08:23 Pantoprazole 40 Mg Tablet PO 40 mg QAM KEEGAN Administration Silver Nitrate 1 applic 04/16/21 09:00 04/17/21 08:23 Silvergel (Elta) 45 Ml TOPICAL 1 applic DAILY KEEGAN Administration Radiology Results: ITS Impressions Toe X-Ray 04/15/21 23:12 IMPRESSION: No acute erosive change. Foot CT 04/16/21 10:23 IMPRESSION: 1. No evidence of osteomyelitis. 2. Polyarticular osteoarthritis. Labs Labs: Laboratory Results -
[2021-04-17 11:58] LABS: Glucose Point of Care 140 mg/dl (65-105)
[2021-04-17 14:15] VITALS: BP 131/90; PULSE 103; RESP 18; TEMP 36.8; O2SAT 98
[2021-04-17 17:11] LABS: Glucose Point of Care 134 mg/dl (65-105)
[2021-04-17 19:38] VITALS: BP 122/87; PULSE 92; RESP 16; TEMP 36.2; O2SAT 98
[2021-04-17 23:09] LABS: Glucose Point of Care 127 mg/dl (65-105)
[2021-04-18 03:56] VITALS: BP 132/85; PULSE 89; RESP 17; TEMP 36.6; O2SAT 94
[2021-04-18 06:05] LABS: Anion Gap 9 mmol/L (8-16); Blood Urea Nitrogen 22 mg/dL (9-20); Carbon Dioxide 25 mmol/L (22-30); Chloride 101 mmol/L (98-107); Estimated CRCL calculation 45 ml/min; Estimated Glomerular Filt Rate 35; Glucose 152 mg/dL (65-110); Potassium 4.2 mmol/L (3.4-5.0); Sodium 135 mmol/L (137-145)
[2021-04-18 07:53] LABS: Glucose Point of Care 142 mg/dl (65-105)
[2021-04-18] MEDS: amLODIPine BESYLATE 5 MG TABLET 10 MG PO (08:24)
[2021-04-18] MEDS: PANTOPRAZOLE 40 MG TABLET PO (08:24)
[2021-04-18] MEDS: SODIUM CHLORIDE 0.9% IV 1,000 ML 100 ML IV CONT (08:24)
[2021-04-18] MEDS: SILVERGEL (ELTA) 45 ML 1 APPLIC TOPICAL (08:25)
[2021-04-18 11:47] LABS: Glucose Point of Care 169 mg/dl (65-105)
--- NOTE | 2021-04-18 13:01 | PM.DS ---
DS: Admitting Diagnosis Discharge Date 04/18/2021 Admitting Diagnosis Diabetic foot wound DS: Discharge Diagnosis Discharge Diagnosis (1) Open wound of left great toe: Code(s): S91.102A - Unspecified open wound of left great toe without damage to nail, initial encounter Status: Chronic Assessment and Plan: Left great toe ulcer. X-ray showed no acute erosive changes, no foreign body, unremarkable soft tissue, no subcutaneous gas. CT scan without evidence of osteomyelitis. He was afebrile, no leukocytosis. He was seen in consultation by General surgery. There was no indication for surgical intervention. He was treated with IV Ancef and will continue with p.o. Keflex as an outpatient to complete 7 days. Apply silver gel to wound daily. Cam walking boot. Preliminary blood cultures negative to date. Cultures of left great toe with growth of skin jani. He will follow-up with Dr. Dumont in 2 weeks. (2) Cellulitis of great toe of left foot: Code(s): L03.032 - Cellulitis of left toe Status: Acute Assessment and Plan: Plan as above (3) Type 2 diabetes mellitus: Code(s): E11.9 - Type 2 diabetes mellitus without complications Status: Chronic Assessment and Plan: A1c is 5.9. Significant improvement from last A1c at this facility 1 year ago which was >14.0. Blood sugars well controlled throughout admission. Continue his home Lantus. Glipizide discontinued to prevent hypoglycemia given his A1c. Encouraged to continue monitoring blood sugars 3 times a day and follow-up with PCP (4) Acute kidney injury superimposed on chronic kidney disease: Code(s): N17.9 - Acute kidney failure, unspecified; N18.9 - Chronic kidney disease, unspecified Status: Resolved Assessment and Plan: Baseline creatinine appears to be 1.6-1.8. Reviewing previous labs, GFR appears to range from 35-50. Creatinine was elevated up to 2.1 this admission. Renal ultrasound showed renal cortical thinning and atrophy. I discussed the case with steel burner, Dr. Weeks. Reviewed prior labs and he feels that there are certainly signs of chronicity and expects that creatinine fluctuates up and down with stress. He would like to follow-up with the patient in his office. Repeat renal panel in 1 week with results to PCP and Dr. Weeks. Lisinopril and hydrochlorothiazide held. (5) Hypertension: Code(s): I10 - Essential (primary) hypertension Status: Acute Assessment and Plan: Blood pressure was well controlled during admission. Continue amlodipine. As above, lisinopril and hydrochlorothiazide were held due to kidney disease. Blood pressures were well controlled on amlodipine alone. The patient has been instructed to monitor his blood pressures at home and record for review by PCP DS: Summary Hospital Course Hospital Course: Date of admission: 04/15/2021 Date of discharge: 04/18/2021 Dejan Sevilla is a 45 year old male with a history of diabetes mellitus, CKD stage 3, osteomyelitis with amputation of right 5th metatarsal, and hypertension who presented to the emergency department on 04/18/2021 for evaluation of a wound on his left great toe that he noticed 3 days prior, stating that it was becoming progressively worsened with increased redness. On presentation, he was mildly tachycardic with additional vital signs stable, hemoglobin and hematocrit slightly decreased, BUN 26, creatinine 2.1, lactic 1.3, and toe x-ray showed no acute erosive changes. He was admitted to the hospitalist service for further evaluation and management and was seen in consultation by General surgery. Please see above for further details. His toe wound remained stable without purulence or signs of worsened infection and was managed with IV antibiotics. He will continue p.o. antibiotics at home and will follow-up for wound check with Dr. Dumont in 2 weeks. He was instructed to monitor his wound e
[2021-04-18 14:00] VITALS: BP 143/99; PULSE 91; RESP 18; TEMP 36.6; O2SAT 99
== END 2021-04-18 14:28 | disposition home or self-care (01) ==
LOC: ANHED 04-16 01:03 → ANH2MED 04-16 02:06
PROVIDERS: Physician Assistant; Admitting Provider Internal Medicine; Emergency Provider Emergency Medicine; Visit Provider Internal Medicine
DX: L03.032 Cellulitis of left toe (principal); S91.102A Unspecified open wound of left great toe without damage to nail, initial encounter; E11.621 Type 2 diabetes mellitus with foot ulcer; L97.529 Non-pressure chronic ulcer of other part of left foot with unspecified severity; N17.9 Acute kidney failure, unspecified; N18.30 Chronic kidney disease, stage 3 unspecified; E11.22 Type 2 diabetes mellitus with diabetic chronic kidney disease; E11.21 Type 2 diabetes mellitus with diabetic nephropathy; E11.319 Type 2 diabetes mellitus with unspecified diabetic retinopathy without macular edema; E11.40 Type 2 diabetes mellitus with diabetic neuropathy, unspecified; E11.43 Type 2 diabetes mellitus with diabetic autonomic (poly)neuropathy; K31.84 Gastroparesis; K21.9 Gastro-esophageal reflux disease without esophagitis; D64.9 Anemia, unspecified; F41.9 Anxiety disorder, unspecified; Z91.51 Personal history of suicidal behavior; Z79.84 Long term (current) use of oral hypoglycemic drugs; Z79.4 Long term (current) use of insulin
CPT/HCPCS: 36415; 73660; 73700; 76775; 80048; 80053; 82948; 83036; 83605; 85025; 85027; 86140; 87040; 87070; 87075; 87205; 96361; 96365; 96366; 96367; 99285; A9270; G0378; G0379; J0690; J0743; J3370; J7030; L2116

== ENCOUNTER 2021-08-03 18:23 | Inpatient (IN) | payer OTHER, SELFPAY ==
--- NOTE | ~2021-08-03 | XR_ITS ---
EXAMINATION: XR chest 1V portable DATE: 08/04/2021 09:12 INDICATION: Nausea and vomiting TECHNIQUE: frontal view of the chest was obtained. COMPARISON: Chest radiograph dated 08/06/2019 FINDINGS: The lungs remain clear with no focal airspace opacities, pulmonary edema, pleural effusion or pneumot horax. The cardiomediastinal silhouette is normal. Visualized bones and soft tissues are unremarkable . IMPRESSION: 1. No acute cardiopulmonary disease. Reviewed, dictated and finalized at location A.
--- NOTE | ~2021-08-03 | XR_ITS ---
EXAMINATION: XR abdomen obstructive series DATE: 08/05/2021 10:44 INDICATION: One week of nausea and vomiting TECHNIQUE: Frontal supine and upright views of the abdomen were obtained. COMPARISON: None. FINDINGS: Small amount of gas scattered throughout the bowels which appears predominantly colonic. No dilated g as-filled small bowel to suggest obstruction. No free intraperitoneal gas. Visualized bilateral mid t o lower lung zones are clear. No pleural effusion. Heart size is normal. Bones and soft tissues are u nremarkable. IMPRESSION: 1. No free intraperitoneal gas or dilated gas-filled loops of bowel to suggest obstruction. Reviewed, dictated and finalized at location A.
--- NOTE | ~2021-08-03 | CT_ITS ---
EXAMINATION: CT abdomen pelvis wo con DATE: 08/03/2021 21:57 INDICATION: Abdominal pain, nausea, vomiting, diarrhea. TECHNIQUE: Computed tomography (CT) of the abdomen and pelvis was performed without intravenous contr ast. Automated exposure control and iterative reconstruction technique were employed. Exam dose: 894 .90 mGy-cm total exam DLP. COMPARISON: 11/14/2017 CT abdomen pelvis FINDINGS: The lung bases are clear. Normal heart size. No pericardial or pleural effusion. Small sliding hiatal hernia. The gallbladder is present. Small gallstones are not excluded; ultrasound would be more sensitive for detection of cholelithiasis. No bile duct dilatation. No hepatic space-occupying mass lesion. Normal splenic size. No bile duct dilatation. No pancreatic mass lesion, calcification or ductal dilatation. Normal morphology of the adrenal glands. No renal mass lesion or urinary tract calculus or hydroureteronephrosis is detected. The urinary bladder, prostate gland and seminal vesicles are unremarkable. Normal caliber of the abdominal aorta. No intraperitoneal or retroperitoneal or pelvic mass lesion or adenopathy or ascites. An Fat-containing left inguinal hernia. Diverticulosis of left and right colon; no CT evidence of diverticulitis. Normal size of the appendix ; no appendiceal wall thickening or periappendiceal fat stranding or fluid. No bowel obstruction or i ntraperitoneal free air. Very small fat-containing umbilical hernia. No suspicious osteolytic or osteoblastic lesions are noted. IMPRESSION: Normal appendix Diverticulosis of left and right colon; no CT evidence of diverticulitis. Fat-containing left inguinal hernia Small sliding hiatal hernia Reviewed, dictated and finalized at Location A. Reviewed, dictated and finalized at location A.
[2021-08-03 18:46] VITALS: BP 176/100; PULSE 119; RESP 14; TEMP 36.6; O2SAT 100
--- NOTE | 2021-08-03 20:21 | ED.NAVMDI ---
HPI - Nausea/Vomiting/Diarrhea General Chief complaint: Nausea/Vomiting/Diarrhea Stated complaint: vomiting Time Seen by Provider: 08/03/21 19:44 Source: patient Mode of arrival: ambulatory Limitations: no limitations History of Present Illness HPI Narrative: This is a 45 year old male that presents to the ER for nausea and vomiting. Ongoing over the last couple of days. Also reports diarrhea. Reports he has had dark colored vomit the last couple of hours. He did take Pepto bismal yesterday. Reports diffuse abdominal pain. Denies fevers. Related Data Home Medications Medication Instructions Recorded Confirmed omeprazole 20 mg PO DAILY 08/03/19 06/08/21 hydrochlorothiazide 12.5 mg PO HS 04/16/21 06/08/21 insulin glargine 25 unit SUBCUT QAM 04/16/21 06/08/21 lisinopril 10 mg PO DAILY 04/16/21 06/08/21 glipizide 5 mg PO DAILY 08/03/21 Allergies Allergy/AdvReac Type Severity Reaction Status Date / Time bee stings Allergy Unknown Unknown Uncoded 04/15/21 20:40 Review of Systems Review of Systems: CONSTITUTIONAL: Denies fever GASTROINTESTINAL: Reports abdominal pain, nausea, vomiting, and diarrhea. GENITOURINARY: Denies dysuria All systems reviewed & are unremarkable except as noted in HPI and below PMFSH Past Medical History Medical History Bipolar disorder Chronic anemia Chronic kidney disease, stage 3 Baseline creatinine appears to be between 1.60 and 1.80. Diabetic gastroparesis Diabetic retinopathy GERD (gastroesophageal reflux disease) History of GI bleed Secondary to esophagitis noted on EGD in November 2017. History of osteomyelitis Right 5th toe, status post amputation. History of suicide attempt Hypertension Surgical History Surgical History Status post amputation of toe of right foot Right 5th toe amputation including the distal metatarsal in 2017. Open amputation of right 5th metatarsal in July 2019 for osteomyelitis of right 5th metatarsal stump. Family History Family History Other Adopted Social History Social History Social History: The patient lives in [place] with his and their 3 children, 1 biological daughter and 2 step children. The patient is adopted and does not know any medical history regarding his biological parents. 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 He is a previous smoker, both cigars and cigarettes. He does smoke cannabis. He denies alcohol use. , Pari, is his surrogate decision maker and he wishes to be a full code. Smoking packs per day: 1 Smoking cigarettes per day: 20.0 Years smoked: 20 Smoking pack-years: 20.00 Smoking status: Former smoker Tobacco type: cigarettes and cigars Second hand tobacco smoke exposure: Yes Additional smoking assessment comments: Alcohol intake: never Substance use: never Substance use type: marijuana Gender identity (if verbalized by the patient): Male Spiritual care concerns: No Agree to blood products: Yes Exam Narrative: GENERAL: Well-appearing, well-nourished, and in no acute distress. HEAD: Normocephalic, atraumatic. EYES: EOMI. CHEST: Clear to auscultation. No respiratory distress. No wheezes rales or rhonchi HEART: Regular rate and rhythm. No murmur heard. Normal peripheral pulses. ABDOMEN: Soft, nondistended, normal active bowel sounds. Tender to palpation throughout the abdomen, without guarding EXTREMITIES: Normal range of motion. No edema. SKIN: Warm, dry, no rash. NEURO: No focal deficits. Alert and oriented x3. PSYCH: Normal mood and affect RECTAL: Hemoccult negative Course Consultations Consultation #1: Spoke with hospitalist, Dr. Scott, about patient and work-up who accepts admission. Date: 08/04/21 Consultation #2: Spoke with in
[2021-08-03] MEDS: diphenhydrAMINE HCl INJ 50 MG/ML VIAL 25 MG IV PUSH (20:49)
[2021-08-03] MEDS: PANTOPRAZOLE SODIUM IV 40 MG VIAL IV PUSH (20:51)
[2021-08-03] MEDS: SODIUM CHLORIDE 0.9% IV 500 ML 999 ML IV CONT (20:51)
[2021-08-03] MEDS: METOCLOPRAMIDE HCL INJ 10 MG/2 ML VIAL IV PUSH (20:53)
[2021-08-03 20:59] VITALS: BP 172/138; PULSE 143; RESP 30; O2SAT 99
--- NOTE | 2021-08-03 20:59 | ECG_ITS ---
Measurements Intervals [place] Rate: 123 P: 31 CO: 150 QRS: -46 QRSD: 101 T: -3 QT: 336 QTc: 482 Interpretive Statements SINUS TACHYCARDIA PATTERN CONSISTENT WITH PULMONARY DISEASE INCOMPLETE RIGHT BUNDLE BRANCH BLOCK [90+ ms QRS DURATION, TERMINAL R IN V1/V2, 40+ ms S IN I/aVL/V4/V5/V6] LEFT ANTERIOR FASCICULAR BLOCK [QRS AXIS <= -45, QR IN I, RS IN II] ABNORMAL ECG NO PREVIOUS ECG AVAILABLE FOR COMPARISON Electronically Signed On 08-04-2021 17:11:14 CDT by Ed Rosen M.D.
[2021-08-03 21:16] VITALS: BP 189/119; PULSE 124; RESP 20; O2SAT 99
[2021-08-03 21:17] LABS: Basophils Percent Auto 0.2 % (0.2-1.2); Hematocrit 51.5 % (42.0-52.0); Immature Granulocyte Absolute 0.11 K/mm3 (0.00-0.031); Immature Granulocyte Percent A 0.5 % (0-0.5); Lymphocytes Absolute Auto 1.15 K/mm3 (0.9-3.2); Lymphocytes Percent Auto 5.7 % (18.3-44.2); Mean Corpuscular HGB Conc 31.1 g/dl (32-36); Mean Corpuscular Hemoglobin 26.4 pg (26-34); Mean Platelet Volume 10.2 fl (7.4-10.4); Monocytes Absolute Auto 0.6 K/mm3 (0.1-0.6); Monocytes Percent Auto 3.2 % (2.6-8.5); Neutrophils Absolute Auto 18.2 K/mm3 (1.3-6.7); Neutrophils Percent Auto 90.4 % (45.5-73.1); Platelet Count Result 316 k/mm3 (150-375); Red Blood Count 6.06 M/mm3 (4.6-6.20); Red Cell Distribution Width 13.8 % (11.5-14.5); White Blood Count 20.1 K/mm3 (4.5-10.0)
[2021-08-03 21:29] LABS: Alanine Aminotransferase 18 U/L (4-50); Albumin Level 4.8 g/dL (3.5-5.1); Alkaline Phosphatase 133 U/L (38-126); Anion Gap 23 mmol/L (8-16); Aspartate Amino Transferase 26 U/L (17-59); Blood Urea Nitrogen 30 mg/dL (9-20); Calcium 8.8 mg/dL (8.4-10.2); Carbon Dioxide 17 mmol/L (22-30); Chloride 99 mmol/L (98-107); Estimated CRCL calculation 34 ml/min; Estimated Glomerular Filt Rate 25; Glucose 229 mg/dL (65-110); Lipase 95 U/L (23-300); Sodium 139 mmol/L (137-145)
[2021-08-03 22:03] VITALS: BP 199/120; PULSE 126; RESP 26; O2SAT 99
[2021-08-03 22:31] LABS: Magnesium 1.8 mg/dL (1.6-2.3); Phosphorus 3.5 mg/dL (2.5-4.5)
[2021-08-03 22:33] LABS: CRP 1.5 mg/dL (<1.0)
[2021-08-03] MEDS: SODIUM CHLORIDE 0.9% IV 1,000 ML 999 ML IV CONT (22:37)
[2021-08-03 22:58] LABS: Beta-Hydroxybutyrate/Acetoacetate 5.49 mmol/L (0.02-0.27)
[2021-08-03] MEDS: LABETALOL HCL INJ 100 MG/20 ML VIAL 20 MG IV PUSH (22:59)
[2021-08-03 23:01] VITALS: BP 195/124; PULSE 120; RESP 21; O2SAT 98
[2021-08-03 23:11] LABS: Alveolar/Arterial O2 Gradient 26.1 mmHg; Carboxyhemoglobin 0.3 % THb (0-2.0); Device ROOM AIR; Fractional Inspired Oxygen 21 %; HCO3 ABG 18.5 mEq/l (22.0-26.0); Methemoglobin ABG 0.3 %THb (0-1.5); Modified Allen's Test Pass; Oxygen Content ABG 20.1 %vol (16.0-22.0); Oxygen Saturation ABG 97.3 % (95.0-100.0); Oxyhemoglobin 95.8 % THb (90.0-100.0); PCO2 ABG 27.8 mmHg (35.0-45.0); PO2 ABG 90.3 mmHg (80.0-100.0); Reduced Hemoglobin 3.6 %THb (0-5.0); Site Drawn RIGHT RADIAL; Total Hemoglobin 14.9 g/dL (12.0-18.0); pH ABG 7.442 (7.350-7.450)
[2021-08-03 23:16] VITALS: BP 185/115; PULSE 115; RESP 17; O2SAT 97
[2021-08-03 23:52] LABS: Glucose Point of Care 210 mg/dl (65-105)
[2021-08-03] MEDS: INSULIN HUMAN REGULAR (*BKC) 100 UNITS/ML IV PUSH (23:56)
[2021-08-03] MEDS: ONDANSETRON INJ 4 MG/2 ML VIAL IV PUSH (23:57)
[2021-08-04] VITALS (20 sets, daily range): BP systolic 125–204; BP diastolic 84–115; PULSE 110–135; RESP 12–24; TEMP 36.4–37.6; O2SAT 95–99; BMI 32.0; BMI 32.1
--- NOTE | 2021-08-04 | ECHO_ITS ---
Patient Info Name: Dejan Sevilla Age: 45 years : 1975 Gender: Male Ht: 72 in Wt: 236 lbs BSA: 2.36 m2 HR: 120 bpm BP: 178 / 100 mmHg Heart Rhythm: Sinus Rhythm Exam Date: 08/04/2021 10:35 AM Exam Location: [facility] Patient Status: Outpatient Admit Date: 08/04/2021 Staff Ordering Physician: Parag Dumont MD Toe Puncher: Dallin Stiles RDCS, RT Attending Provider: Martha Scott DO Exam Type: CA echo doppler w bubble study Study Info Indications R94.31 - Abnormal electrocardiogram ECG EKG Complete two-dimensional, color flow and Doppler transthoracic echocardiogram is performed with agitated saline. Summary 1. Left ventricular hypertrophy with normal systolic function and grade 1 diastolic noncompliance. 2. No valvular abnormalities. 3. Agitated saline contrast injection demonstrates no intracardiac shunt. Left Ventricle Left ventricular chamber dimension is normal. Left ventricular systolic function is normal, estimated at 65-70%. There is mild concentric increased left ventricular wall thickness. The left ventricular diastolic function is grade I diastolic dysfunction. Right Ventricle Right ventricular chamber dimension is normal. Left Atria Left atrial chamber dimension is normal. Right Atria Right atrial chamber dimension is normal. Atrial Septum Intact interatrial septum visualized by agitated saline imaging. Aortic Valve The aortic valve is normal. Pulmonic Valve The pulmonic valve is not well visualized. Mitral Valve The mitral valve has normal leaflets. Tricuspid Valve The tricuspid valve leaflets are normal. Pericardium/Pleural The pericardium appears normal. Aorta The aortic root size at the sinus of Valsalva is normal. Left Ventricular Outflow Tract Name Value Normal LVOT 2D LVOT Diameter 2.4 cm LVOT Doppler LVOT Peak Gradient 3 mmHg LVOT Mean Gradient 2 mmHg LVOT VTI 17 cm LVOT VTI/AV VTI Ratio 1.2 LVOT Stroke Volume 78 ml LVOT CO 9.2 l/min LVOT CI 3.9 l/min/m2 Mitral Valve Name Value Normal MV Doppler MV Decel Johnson 587 cm/s2 MV PHT 39 ms MV Area (PHT) 5.7 cm2 4.0-5.0 MV Diastolic Function MV E Peak Velocity 79 cm/s MV A Peak Velocity 92 cm/s MV E/A 0.9 MV Decel Time 134 ms MV Annular TDI MV E/e'
[2021-08-04 00:10] LABS: Add Urine Microscopic? YES; Appearance Urine Cloudy (Clear); Bilirubin Urine Negative (Negative); Blood Urine 2+ (Negative); Color Urine Yellow (Yellow); Glucose Urine UA 1+ mg/dL (Negative); Ketones Urine 2+ mg/dL (Negative); Leukocyte Esterase Ur Negative LEU/UL (Negative); Nitrate Urine Negative (Negative); Protein Urine 3+ mg/dL (Negative); Specific Grav Ur 1.019 (1.001-1.035); Squamous Epithelial Cell Urine Rare /hpf (Few); Urobilinogen Urine Negative mg/dL (<2.0); WBC Urine 0-3 /hpf
[2021-08-04 01:16] LABS: Reflex Lactic Acid Yes or No Add Lactic
[2021-08-04] MEDS: SODIUM CHLORIDE 0.9% IV 1,000 ML 999 ML IV CONT ×3 (01:23→04:19)
[2021-08-04 01:52] LABS: Lactic Acid 3.1 mmol/L (0.7-2.1)
[2021-08-04 02:40] LABS: Glucose Point of Care 210 mg/dl (65-105)
--- NOTE | 2021-08-04 02:55 | ADMGEN ---
This patient, Dejan Sevilla, was admitted to Intensive Care Unit-3 at 0245 on 08/04/2021. Patient/family oriented to hospital policies and general routines including ID bracelet, bed and alarms, visiting hours, pain management, procedures, bathroom and other care routines, personal items, smoking policy, room service/diet, and visiting hours. Information on how to activate the Rapid Response Team has been discussed. Patient/Family are encouraged to report perceived risks to care and to ask questions if they do not understand what they are told or what they should do.
[2021-08-04 03:23] LABS: Hemoglobin A1C 5.8 % (<5.7)
[2021-08-04 03:24] LABS: Anion Gap 13 mmol/L (8-16); Blood Urea Nitrogen 31 mg/dL (9-20); Calcium 7.7 mg/dL (8.4-10.2); Carbon Dioxide 21 mmol/L (22-30); Chloride 106 mmol/L (98-107); Estimated CRCL calculation 44 ml/min; Estimated Glomerular Filt Rate 28; Glucose 210 mg/dL (65-110); Potassium 3.7 mmol/L (3.4-5.0); Sodium 140 mmol/L (137-145)
--- NOTE | 2021-08-04 03:35 | PM.IMHP ---
H&P: HPI History of Present Illness Date/Time: 08/04/21 03:35 Chief Complaint: Nausea vomiting and diarrhea for 2 days Narrative: 45-year-old male with past medical history of chronic kidney disease stage 3, insulin-dependent diabetes mellitus and gastroparesis who presented to the ER with 2 days of nausea vomiting and diarrhea. The patient reports the symptoms 1st started with watery diarrhea. His shortly thereafter followed by vomiting. The 1st day he was vomiting clear gastric contents. The following day he had some greenish colored emesis. The came in on the due to developing coffee-ground emesis. For he reports that he has been vomiting and having dry heaves numerous times a day. He denies any known ill contacts. He has not had any diarrhea be on the 1st day of symptoms. He reports that his abdominal muscles feel tender due to repeated emesis but no true abdominal pain. He reports that his throat is now severely sore due to multiple episodes of vomiting. He has not taken is insulin at all in the last 2 days due to his symptoms. He has not been able check his blood sugars last couple days due to his symptoms. His hemoglobin A1c ordered in the ER was 5.8%. He does have chronic kidney disease. He reports that he has had markedly decreased urine output over the last 3648 hours. He denies any chest pain or shortness of breath. He has not had any cough or congestion. He has received his COVID vaccines. He denies any fevers or chills. In the ER patient's temperature was mildly elevated to 99.3. He has not had any recent antibiotics exposure or recent travel. Review of Systems Review of Systems: 12 systems were reviewed with pertinent positives and negatives per HPI. Except as documented in the HPI, all other systems were reviewed and are negative. [facility] Past Medical History Medical History Bipolar disorder Chronic anemia Chronic kidney disease, stage 3 Baseline creatinine appears to be between 1.60 and 1.80. Diabetic gastroparesis Diabetic retinopathy GERD (gastroesophageal reflux disease) History of GI bleed Secondary to esophagitis noted on EGD in November 2017. History of osteomyelitis Right 5th toe, status post amputation. History of suicide attempt Hypertension Surgical History Surgical History Status post amputation of toe of right foot Right 5th toe amputation including the distal metatarsal in 2018. Open amputation of right 5th metatarsal in July 2019 for osteomyelitis of right 5th metatarsal stump. Family History Family History Other Adopted Social History Social History (Updated 08/04/21 @ 07:38 by Martha Scott DO) Social History: The patient lives in [place] with his and their 3 children, 1 biological daughter and 2 step children. 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 He is a previous smoker, both cigars and cigarettes. He does smoke cannabis. He denies alcohol use. , Pari, is his surrogate decision maker and he wishes to be a full code. Smoking packs per day: 0.5 Smoking cigarettes per day: 10.0 Years smoked: 20 Smoking pack-years: 10.00 Smoking status: Former smoker Tobacco type: cigars Second hand tobacco smoke exposure: Yes Additional smoking assessment comments: Alcohol intake: never Substance use: never Substance use type: marijuana Gender identity (if verbalized by the patient): Male Spiritual care concerns: No Agree to blood products: Yes Meds Home Medications and Allergies Home Medications Medication Instructions Recorded Confirmed Type amlodipine [Norvasc] 10 mg PO QAM #30 tablet 08/07/19 08/04/21 Rx insulin glargine 25 unit SUBCUT QAM 04/16
[2021-08-04] MEDS: hydrALAZINE HCL 20 MG/ML VIAL 10 MG IV PUSH ×5 (04:19→21:16)
[2021-08-04] MEDS: INSULIN GLARGINE (*BKC) 100 UNITS/ML 15 UNITS SUB-Q (04:31)
[2021-08-04] MEDS: PROMETHAZINE HCL 25 MG/ML AMPUL IM ×3 (04:33→16:02)
[2021-08-04] MEDS: SODIUM CHLORIDE 0.9% IV 1,000 ML 150 ML IV CONT ×3 (05:08→21:14)
[2021-08-04 06:03] LABS: Glucose Point of Care 231 mg/dl (65-105)
[2021-08-04 07:04] LABS: Lactic Acid Reflex 2.6 mmol/L (0.7-2.1)
[2021-08-04 07:08] LABS: Anion Gap 12 mmol/L (8-16); Blood Urea Nitrogen 29 mg/dL (9-20); Calcium 7.3 mg/dL (8.4-10.2); Carbon Dioxide 18 mmol/L (22-30); Chloride 108 mmol/L (98-107); Estimated CRCL calculation 50 ml/min; Estimated Glomerular Filt Rate 33; Glucose 212 mg/dL (65-110); Potassium 4.2 mmol/L (3.4-5.0); Sodium 138 mmol/L (137-145)
[2021-08-04] MEDS: ONDANSETRON INJ 4 MG/2 ML VIAL IV PUSH ×3 (07:55→21:16)
[2021-08-04 08:10] LABS: Glucose Point of Care 196 mg/dl (65-105)
--- NOTE | 2021-08-04 08:30 | PM.IMPN ---
Progress Note: A&P Assessment and Plan (1) DKA (diabetic ketoacidosis): Qualifiers: Diabetes mellitus complication detail: without coma Diabetes mellitus type: type 2 Qualified Code(s): E11.10 - Type 2 diabetes mellitus with ketoacidosis without coma Code(s): E11.10 - Type 2 diabetes mellitus with ketoacidosis without coma Status: Acute Assessment and Plan: Patient presents with nausea, vomiting and diarrhea. He was noted to have a metabolic gap acidosis with anion gap of 23. Glucose was 229. Lactic acid was 4. PH was normal. Urine ketones were 2+. Beta hydroxybutyrate was 5.5. Concern for DKA. Patient was started on IV fluids and insulin drip. Anion gap closed. Lactic dropped to 2.6 today. Patient has been switched to Lantus. DKA most likely related to the nausea vomiting. Leukocytosis related to DKA but will repeat to ensure this improves. (2) Intractable nausea and vomiting: Code(s): R11.2 - Nausea with vomiting, unspecified Status: Acute Assessment and Plan: Patient with intractable nausea and vomiting. He has a history of intractable nausea and vomiting requiring hospitalization a few years ago. Was felt related to his gastroparesis. He does not have a history of cyclic vomiting. He has not had episodes of nausea vomiting since that last hospitalization up until this admission. The diarrhea has resolved. CT of the abdomen and pelvis showing no acute findings. Diverticulosis noted but no evidence of diverticulitis. Could have gastroenteritis. Could be related to his gastroparesis. Continue IV fluids. Continue supportive care. Continue current anti emetics. (3) Hbydf-up-zcjmlka kidney injury: Qualifiers: Acute renal failure type: unspecified Chronic kidney disease stage: stage 3 (moderate) Chronic kidney disease stage 3 subtype: stage 3b (GFR 30-44) Qualified Code(s): N17.9 - Acute kidney failure, unspecified; N18.32 - Chronic kidney disease, stage 3b Code(s): N17.9 - Acute kidney failure, unspecified; N18.9 - Chronic kidney disease, unspecified Status: Acute Assessment and Plan: On chart review, baseline creatinine runs 1.7-2.1 mostly. Patient had a creatinine 2.8 on admission related to dehydration from the DKA and nausea/vomiting. With IV fluids, creatinine has decreased to 2.2 which is close to his baseline. Renal ultrasound in April 2021 shows renal cortical thinning and atrophy. CT scan this admission showing no concerning findings regarding the kidneys or bladder. Continue to monitor renal function. Lisinopril is on hold. (4) Dehydration: Code(s): E86.0 - Dehydration Status: Acute Assessment and Plan: Related to the DKA and nausea/vomiting. As above (5) Diabetic gastroparesis: Code(s): E11.43 - Type 2 diabetes mellitus with diabetic autonomic (poly)neuropathy; K31.84 - Gastroparesis Status: Chronic Assessment and Plan: Patient with known gastroparesis. He does not take medications at home for this. It appears that he has infrequent episodes of nausea and vomiting. Reglan should help. Continue current plan. May need to schedule Reglan if he has persistent nausea vomiting (6) Hypertension: Qualifiers: Hypertension type: unspecified Qualified Code(s): I10 - Essential (primary) hypertension Code(s): I10 - Essential (primary) hypertension Status: Acute Assessment and Plan: Patient's blood pressure was reviewed on 08/04 Blood pressure poorly controlled. EKG reviewed personally. Patient does not have known chronic lung disease. Will continue current medications with Norvasc. Will hold lisinopril. Continue hydralazine p.r.n.. Continue to adjust medications as needed. Will check chest x-ray and echocardiogram. May need ApneaLink. (7) Type 2 diabetes mellitus: Code(s): E11.9 - Type 2 diabetes mellitus without complications
[2021-08-04] MEDS: PANTOPRAZOLE SODIUM IV 40 MG VIAL IV PUSH ×2 (09:17→21:15)
[2021-08-04] MEDS: ENOXAPARIN 40 MG/0.4 ML SYRINGE SUB-Q (12:02)
[2021-08-04 13:01] LABS: Hematocrit 39.9 % (42.0-52.0); Hemoglobin 13.1 g/dL (14.0-18.0); Mean Corpuscular HGB Conc 32.8 g/dl (32-36); Mean Corpuscular Hemoglobin 26.3 pg (26-34); Platelet Count Result 269 k/mm3 (150-375); Red Blood Count 4.99 M/mm3 (4.6-6.20); Red Cell Distribution Width 14.2 % (11.5-14.5); White Blood Count 19.1 K/mm3 (4.5-10.0)
[2021-08-04 13:22] LABS: Anion Gap 11 mmol/L (8-16); Blood Urea Nitrogen 27 mg/dL (9-20); Calcium 7.3 mg/dL (8.4-10.2); Carbon Dioxide 21 mmol/L (22-30); Chloride 109 mmol/L (98-107); Estimated CRCL calculation 52 ml/min; Estimated Glomerular Filt Rate 35; Glucose 183 mg/dL (65-110); Potassium 3.3 mmol/L (3.4-5.0); Sodium 141 mmol/L (137-145)
[2021-08-04 17:19] LABS: Anion Gap 11 mmol/L (8-16); Blood Urea Nitrogen 25 mg/dL (9-20); Calcium 7.6 mg/dL (8.4-10.2); Carbon Dioxide 20 mmol/L (22-30); Chloride 110 mmol/L (98-107); Estimated CRCL calculation 50 ml/min; Estimated Glomerular Filt Rate 33; Glucose 185 mg/dL (65-110); Potassium 3.5 mmol/L (3.4-5.0); Sodium 141 mmol/L (137-145)
[2021-08-04 21:03] LABS: Anion Gap 8 mmol/L (8-16); Blood Urea Nitrogen 26 mg/dL (9-20); Calcium 7.5 mg/dL (8.4-10.2); Carbon Dioxide 21 mmol/L (22-30); Chloride 111 mmol/L (98-107); Estimated CRCL calculation 50 ml/min; Estimated Glomerular Filt Rate 33; Glucose 190 mg/dL (65-110); Potassium 3.6 mmol/L (3.4-5.0); Sodium 140 mmol/L (137-145)
[2021-08-05] VITALS (13 sets, daily range): BP systolic 154–183; BP diastolic 93–104; PULSE 107–129; RESP 16–24; TEMP 36.6–37.4; O2SAT 96–98; BMI 31.6
[2021-08-05] MEDS: INSULIN ASPART (*BKC) 100 UNITS/ML SUB-Q ×2 (00:02→11:58)
[2021-08-05] MEDS: NITROGLYCERIN OINTMENT 1 INCH DOSE TRANSDERM ×2 (00:03→05:56)
[2021-08-05] MEDS: PROMETHAZINE HCL 25 MG/ML AMPUL IM ×2 (00:03→08:53)
[2021-08-05 00:11] LABS: Glucose Point of Care 216 mg/dl (65-105)
[2021-08-05 00:11] LABS: Glucose Point of Care 180 mg/dl (65-105)
[2021-08-05 05:05] LABS: Hematocrit 40.3 % (42.0-52.0); Hemoglobin 12.8 g/dL (14.0-18.0); Mean Corpuscular HGB Conc 31.8 g/dl (32-36); Mean Corpuscular Hemoglobin 26.3 pg (26-34); Mean Corpuscular Volume 82.9 fl (80-100); Mean Platelet Volume 10.6 fl (7.4-10.4); Platelet Count Result 274 k/mm3 (150-375); Red Blood Count 4.86 M/mm3 (4.6-6.20); Red Cell Distribution Width 14.6 % (11.5-14.5)
[2021-08-05 05:22] LABS: Alanine Aminotransferase 18 U/L (4-50); Albumin Level 3.7 g/dL (3.5-5.1); Alkaline Phosphatase 82 U/L (38-126); Anion Gap 9 mmol/L (8-16); Aspartate Amino Transferase 36 U/L (17-59); Bilirubin,Total 0.6 mg/dL (0.2-1.3); Blood Urea Nitrogen 26 mg/dL (9-20); Calcium 7.6 mg/dL (8.4-10.2); Carbon Dioxide 21 mmol/L (22-30); Chloride 112 mmol/L (98-107); Estimated CRCL calculation 50 ml/min; Estimated Glomerular Filt Rate 33; Glucose 184 mg/dL (65-110); Magnesium 1.8 mg/dL (1.6-2.3); Phosphorus 3.3 mg/dL (2.5-4.5); Potassium 3.5 mmol/L (3.4-5.0); Sodium 142 mmol/L (137-145)
[2021-08-05] MEDS: hydrALAZINE HCL 20 MG/ML VIAL 10 MG IV PUSH ×3 (06:11→16:29)
[2021-08-05] MEDS: SODIUM CHLORIDE 0.9% IV 1,000 ML 150 ML IV CONT (07:00)
--- NOTE | 2021-08-05 08:53 | PM.IMPN ---
Progress Note: A&P Assessment and Plan (1) DKA (diabetic ketoacidosis): Qualifiers: Diabetes mellitus complication detail: without coma Diabetes mellitus type: type 2 Qualified Code(s): E11.10 - Type 2 diabetes mellitus with ketoacidosis without coma Code(s): E11.10 - Type 2 diabetes mellitus with ketoacidosis without coma Status: Acute Assessment and Plan: Patient presents with nausea, vomiting and diarrhea. He was noted to have a metabolic gap acidosis with anion gap of 23. Glucose was 229. Lactic acid was 4. PH was normal. Urine ketones were 2+. Beta hydroxybutyrate was 5.5. Concern for DKA. Patient was started on IV fluids and insulin drip. Anion gap closed. Lactic improved on repeat. Patient was switched to Lantus. DKA most likely related to the nausea vomiting. Leukocytosis related to DKA and is trending down. DKA resolved. (2) Intractable nausea and vomiting: Code(s): R11.2 - Nausea with vomiting, unspecified Status: Acute Assessment and Plan: Patient with intractable nausea and vomiting. He has a history of intractable nausea and vomiting requiring hospitalization a few years ago. Was felt related to his gastroparesis. He does not have a history of cyclic vomiting. He has not had episodes of nausea vomiting since that last hospitalization up until this admission. The diarrhea has resolved. CT of the abdomen and pelvis showing no acute findings. Diverticulosis noted but no evidence of diverticulitis. Could have gastroenteritis but persistent. Could be related to his gastroparesis. Continue IV fluids. Continue supportive care. Continue current anti emetics. Schedule Reglan. Will need NGT if does not improve. Check KUB to exclude the development of ileus. Consider GI consult (3) Rawsn-eg-qnwswys kidney injury: Qualifiers: Acute renal failure type: unspecified Chronic kidney disease stage: stage 3 (moderate) Chronic kidney disease stage 3 subtype: stage 3b (GFR 30-44) Qualified Code(s): N17.9 - Acute kidney failure, unspecified; N18.32 - Chronic kidney disease, stage 3b Code(s): N17.9 - Acute kidney failure, unspecified; N18.9 - Chronic kidney disease, unspecified Status: Acute Assessment and Plan: On chart review, baseline creatinine runs 1.7-2.1 mostly. Creatinine 2.8 on admission related to dehydration from the DKA and nausea/vomiting. With IV fluids, creatinine has decreased to 2.2 which is close to his baseline. Renal ultrasound in April 2021 shows renal cortical thinning and atrophy. CT scan this admission showing no concerning findings regarding the kidneys or bladder. Continue to monitor renal function. Lisinopril remians on hold. (4) Dehydration: Code(s): E86.0 - Dehydration Status: Acute Assessment and Plan: Related to the DKA and nausea/vomiting. As above (5) Diabetic gastroparesis: Code(s): E11.43 - Type 2 diabetes mellitus with diabetic autonomic (poly)neuropathy; K31.84 - Gastroparesis Status: Chronic Assessment and Plan: Patient with known gastroparesis. He does not take medications at home for this. It appears that he has infrequent episodes of nausea and vomiting. No improvement so will schedule Reglan givne the persistent nausea and vomiting (6) Hypertension: Qualifiers: Hypertension type: unspecified Qualified Code(s): I10 - Essential (primary) hypertension Code(s): I10 - Essential (primary) hypertension Status: Acute Assessment and Plan: Patient's blood pressure was reviewed on 08/05 Blood pressure poorly controlled. EKG reviewed personally. Patient does not have known chronic lung disease. Echo showing EF 65/70% and grade 1 diastolic dysfunction but no pulmonary HTN. CXR clear. Check Apnea link. Not on O2. Not able to take Norvasc. Lisinopril remains on hold. NTP added. Continue hydralazine p.r.n.. Check ApneaLink. Schedule Me
[2021-08-05] MEDS: METOCLOPRAMIDE HCL INJ 10 MG/2 ML VIAL 5 MG IV PUSH ×3 (09:02→18:25)
[2021-08-05] MEDS: INSULIN GLARGINE (*BKC) 100 UNITS/ML 25 UNITS SUB-Q (09:04)
[2021-08-05] MEDS: ENOXAPARIN 40 MG/0.4 ML SYRINGE SUB-Q (09:04)
[2021-08-05] MEDS: PANTOPRAZOLE SODIUM IV 40 MG VIAL IV PUSH ×2 (09:04→20:38)
[2021-08-05 09:12] LABS: Glucose Point of Care 198 mg/dl (65-105)
[2021-08-05 10:18] LABS: Lipase 143 U/L (23-300)
[2021-08-05] MEDS: SODIUM CHLORIDE 0.9% IV 1,000 ML 70 ML IV CONT (10:44)
[2021-08-05] MEDS: amLODIPine BESYLATE 5 MG TABLET 10 MG PO (10:51)
[2021-08-05] MEDS: METOPROLOL TARTRATE INJ 5 MG/5 ML VIAL IV PUSH ×2 (11:52→18:25)
[2021-08-05 12:19] LABS: Glucose Point of Care 232 mg/dl (65-105)
[2021-08-05 16:35] LABS: Glucose Point of Care 142 mg/dl (65-105)
--- NOTE | 2021-08-05 17:15 | PC.NURSE ---
This patient, Dejan Sevilla, was transferred to [facility] on 08/05/21 at 1715. Personal belongings sent with patient. Report given to AUGIE Burgos. Appropriate documentation sent with patient.
[2021-08-05] MEDS: ONDANSETRON INJ 4 MG/2 ML VIAL IV PUSH (20:37)
--- NOTE | 2021-08-05 23:39 | PCRCNOTE ---
Pt is nauseated and vomiting on the night of 08/05. Pt was scheduled for an apnea link. Pt unable to do apnea link due to vomiting.
[2021-08-06] VITALS (16 sets, daily range): BP systolic 134–167; BP diastolic 90–106; PULSE 89–111; RESP 18; TEMP 36.9–37.7; O2SAT 95–98
[2021-08-06 00:51] LABS: Glucose Point of Care 143 mg/dl (65-105)
[2021-08-06] MEDS: METOCLOPRAMIDE HCL INJ 10 MG/2 ML VIAL 5 MG IV PUSH ×2 (01:28→06:30)
[2021-08-06] MEDS: SODIUM CHLORIDE 0.9% IV 1,000 ML 70 ML IV CONT (01:28)
[2021-08-06] MEDS: METOPROLOL TARTRATE INJ 5 MG/5 ML VIAL IV PUSH ×2 (01:29→06:32)
[2021-08-06] MEDS: PROMETHAZINE HCL 25 MG/ML AMPUL IM (01:43)
[2021-08-06 02:06] LABS: Glucose Point of Care 112 mg/dl (65-105)
[2021-08-06 06:07] LABS: Basophils Percent Auto 0.2 % (0.2-1.2); Hematocrit 39.1 % (42.0-52.0); Hemoglobin 12.5 g/dL (14.0-18.0); Immature Granulocyte Absolute 0.09 K/mm3 (0.00-0.031); Immature Granulocyte Percent A 0.7 % (0-0.5); Lymphocytes Absolute Auto 2.06 K/mm3 (0.9-3.2); Lymphocytes Percent Auto 15.5 % (18.3-44.2); Mean Corpuscular Hemoglobin 26.5 pg (26-34); Monocytes Percent Auto 7.6 % (2.6-8.5); Neutrophils Absolute Auto 10.1 K/mm3 (1.3-6.7); Platelet Count Result 219 k/mm3 (150-375); Red Blood Count 4.71 M/mm3 (4.6-6.20); Red Cell Distribution Width 14.5 % (11.5-14.5); White Blood Count 13.3 K/mm3 (4.5-10.0)
[2021-08-06 06:20] LABS: Alanine Aminotransferase 17 U/L (4-50); Albumin Level 3.4 g/dL (3.5-5.1); Alkaline Phosphatase 77 U/L (38-126); Anion Gap 7 mmol/L (8-16); Aspartate Amino Transferase 35 U/L (17-59); Bilirubin,Total 0.9 mg/dL (0.2-1.3); Blood Urea Nitrogen 20 mg/dL (9-20); Calcium 7.4 mg/dL (8.4-10.2); Carbon Dioxide 26 mmol/L (22-30); Chloride 104 mmol/L (98-107); Estimated CRCL calculation 57 ml/min; Estimated Glomerular Filt Rate 39; Glucose 107 mg/dL (65-110); Magnesium 1.7 mg/dL (1.6-2.3); Phosphorus 2.8 mg/dL (2.5-4.5); Potassium 3.1 mmol/L (3.4-5.0); Sodium 137 mmol/L (137-145)
[2021-08-06 06:48] LABS: Glucose Point of Care 103 mg/dl (65-105)
[2021-08-06] MEDS: hydrALAZINE HCL 20 MG/ML VIAL 10 MG IV PUSH (06:59)
[2021-08-06 08:39] LABS: Glucose Point of Care 107 mg/dl (65-105)
[2021-08-06] MEDS: MAGNESIUM SULF 2 GM/WATER 50ML 2 GM/50 ML BAG IVPB (09:11)
[2021-08-06] MEDS: POTASSIUM CHLORIDE 20 MEQ PACKET (FOR LIQUID) 40 MEQ PO (09:11)
[2021-08-06] MEDS: INSULIN GLARGINE (*BKC) 100 UNITS/ML 28 UNITS SUB-Q (09:13)
--- NOTE | 2021-08-06 09:15 | PM.IMPN ---
Progress Note: A&P Assessment and Plan (1) Intractable nausea and vomiting: Code(s): R11.2 - Nausea with vomiting, unspecified Status: Acute Assessment and Plan: Patient with intractable nausea and vomiting. He has a history of intractable nausea and vomiting requiring hospitalization a few years ago that was felt related to his gastroparesis. He does not have a history of cyclic vomiting. He has not had episodes of nausea vomiting since that last hospitalization up until this admission. The diarrhea has resolved. CT of the abdomen and pelvis showing no acute findings. Diverticulosis noted but no evidence of diverticulitis. Repeat KUB showing no ileus. Consider gastroenteritis vs gastroparesis vs cyclic vomiting. Reglan started. Better today. Will stop IV fluids. Advance diet slowly. Continue supportive care. Continue current anti emetics. (2) DKA (diabetic ketoacidosis): Qualifiers: Diabetes mellitus complication detail: without coma Diabetes mellitus type: type 2 Qualified Code(s): E11.10 - Type 2 diabetes mellitus with ketoacidosis without coma Code(s): E11.10 - Type 2 diabetes mellitus with ketoacidosis without coma Status: Acute Assessment and Plan: Patient presents with nausea, vomiting and diarrhea. He was noted to have a metabolic gap acidosis with anion gap of 23. Glucose was 229. Lactic acid was 4. PH was normal. Urine ketones were 2+. Beta hydroxybutyrate was 5.5. Concern for DKA. Patient was started on IV fluids and insulin drip. Anion gap closed. Lactic improved on repeat. Patient was switched to Lantus. DKA most likely related to the nausea vomiting. Leukocytosis related to DKA and is trending down (not on abx). DKA resolved. (3) Ecnhd-nu-zkbrqns kidney injury: Qualifiers: Acute renal failure type: unspecified Chronic kidney disease stage: stage 3 (moderate) Chronic kidney disease stage 3 subtype: stage 3b (GFR 30-44) Qualified Code(s): N17.9 - Acute kidney failure, unspecified; N18.32 - Chronic kidney disease, stage 3b Code(s): N17.9 - Acute kidney failure, unspecified; N18.9 - Chronic kidney disease, unspecified Status: Acute Assessment and Plan: On chart review, baseline creatinine runs 1.7-2.1 mostly consistent with CKD III. Creatinine 2.8 on admission related to dehydration from the DKA and nausea/vomiting. With IV fluids, creatinine has decreased to 1.9 which is within his baseline. Renal ultrasound in April 2021 shows renal cortical thinning and atrophy. CT scan this admission showing no concerning findings regarding the kidneys or bladder. Continue to monitor renal function. Okay to resume Lisinopril home dose. Stop IV fluids. (4) Dehydration: Code(s): E86.0 - Dehydration Status: Acute Assessment and Plan: Related to the DKA and nausea/vomiting. As above. (5) Diabetic gastroparesis: Code(s): E11.43 - Type 2 diabetes mellitus with diabetic autonomic (poly)neuropathy; K31.84 - Gastroparesis Status: Chronic Assessment and Plan: Patient with known gastroparesis. He does not take medications at home for this. It appears that he has infrequent episodes of nausea and vomiting. Improvement with scheduled Reglan. Follow. (6) Hypertension: Qualifiers: Hypertension type: unspecified Qualified Code(s): I10 - Essential (primary) hypertension Code(s): I10 - Essential (primary) hypertension Status: Acute Assessment and Plan: Patient's blood pressure was reviewed on 08/06 Blood pressure remains poorly controlled. EKG reviewed personally showing iRBBB. Patient does not have known chronic lung disease. Echo showing EF 65/70%, Grade 1 diastolic dysfunction and intact septum but no pulmonary HTN. CXR clear. Apnea link ordered. Not on O2. Able to take Norvasc now. Lisinopril was on hold but will resume today. Change IV metoprolol to oral. Continue hydrala
[2021-08-06] MEDS: ENOXAPARIN 40 MG/0.4 ML SYRINGE SUB-Q (09:16)
[2021-08-06] MEDS: amLODIPine BESYLATE 5 MG TABLET 10 MG PO (09:16)
[2021-08-06] MEDS: PANTOPRAZOLE SODIUM IV 40 MG VIAL IV PUSH ×2 (09:18→21:05)
[2021-08-06 11:54] LABS: Glucose Point of Care 140 mg/dl (65-105)
[2021-08-06] MEDS: METOPROLOL TARTRATE 12.5 MG TABLET PO ×2 (13:23→21:05)
[2021-08-06] MEDS: lisinopriL 10 MG TABLET PO (13:24)
[2021-08-06 16:46] LABS: Glucose Point of Care 105 mg/dl (65-105)
[2021-08-06 21:31] LABS: Glucose Point of Care 114 mg/dl (65-105)
[2021-08-07] VITALS: PULSE 83
[2021-08-07 04:00] VITALS: PULSE 103
[2021-08-07 06:00] VITALS: BP 163/102; PULSE 109; RESP 16; TEMP 36.5; O2SAT 100
[2021-08-07 06:01] LABS: Glucose Point of Care 95 mg/dl (65-105)
[2021-08-07 06:24] LABS: Anion Gap 4 mmol/L (8-16); Blood Urea Nitrogen 17 mg/dL (9-20); Calcium 7.5 mg/dL (8.4-10.2); Carbon Dioxide 28 mmol/L (22-30); Chloride 103 mmol/L (98-107); Estimated CRCL calculation 60 ml/min; Estimated Glomerular Filt Rate 41; Glucose 86 mg/dL (65-110); Magnesium 2.1 mg/dL (1.6-2.3); Potassium 3.1 mmol/L (3.4-5.0); Sodium 135 mmol/L (137-145)
[2021-08-07 08:00] VITALS: PULSE 105
[2021-08-07 08:22] LABS: Glucose Point of Care 104 mg/dl (65-105)
[2021-08-07 08:42] VITALS: PULSE 108
[2021-08-07] MEDS: METOPROLOL TARTRATE 25 MG TABLET PO (08:42)
[2021-08-07] MEDS: hydrALAZINE HCL 20 MG/ML VIAL 10 MG IV PUSH (08:42)
[2021-08-07] MEDS: ENOXAPARIN 40 MG/0.4 ML SYRINGE SUB-Q (08:44)
[2021-08-07] MEDS: amLODIPine BESYLATE 5 MG TABLET 10 MG PO (08:44)
[2021-08-07] MEDS: INSULIN GLARGINE (*BKC) 100 UNITS/ML 28 UNITS SUB-Q (08:44)
[2021-08-07] MEDS: PANTOPRAZOLE SODIUM IV 40 MG VIAL IV PUSH (08:45)
[2021-08-07] MEDS: lisinopriL 10 MG TABLET PO (08:45)
[2021-08-07] MEDS: POTASSIUM CHLORIDE 20 MEQ PACKET (FOR LIQUID) 40 MEQ PO (09:02)
--- NOTE | 2021-08-07 10:55 | PM.DS ---
DS: Admitting Diagnosis Discharge Date 08/07/21 Admitting Diagnosis Nausea vomiting and diarrhea DS: Discharge Diagnosis Discharge Diagnosis (1) Intractable nausea and vomiting: Code(s): R11.2 - Nausea with vomiting, unspecified Status: Acute Assessment and Plan: Patient with intractable nausea and vomiting. He has a history of intractable nausea and vomiting requiring hospitalization a few years ago that was felt related to his gastroparesis. He does not have a history of cyclic vomiting. He has not had episodes of nausea or vomiting since that last hospitalization up until this admission. The diarrhea has resolved. CT of the abdomen and pelvis showing no acute findings. Diverticulosis noted but no evidence of diverticulitis. Repeat KUB showing no ileus. Sunset symptoms related to gastroenteritis vs gastroparesis vs cyclic vomiting. Reglan started with improvement. Diet started and advanced as he toelrated to a bland diet. (2) DKA (diabetic ketoacidosis): Qualifiers: Diabetes mellitus complication detail: without coma Diabetes mellitus type: type 2 Qualified Code(s): E11.10 - Type 2 diabetes mellitus with ketoacidosis without coma Code(s): E11.10 - Type 2 diabetes mellitus with ketoacidosis without coma Status: Acute Assessment and Plan: Patient presents with nausea, vomiting and diarrhea. He was noted to have a metabolic gap acidosis with anion gap of 23. Glucose was 229. Lactic acid was 4. PH was normal. Urine ketones were 2+. Beta hydroxybutyrate was 5.5. Concern for DKA. Patient was started on IV fluids and insulin drip. Anion gap closed. Lactic improved on repeat. Patient was switched to Lantus. DKA most likely related to the nausea and vomiting or because of it. Leukocytosis related to DKA and is trending down (not on abx). DKA resolved. (3) Dmmpt-en-qhinbuc kidney injury: Qualifiers: Acute renal failure type: unspecified Chronic kidney disease stage: stage 3 (moderate) Chronic kidney disease stage 3 subtype: stage 3b (GFR 30-44) Qualified Code(s): N17.9 - Acute kidney failure, unspecified; N18.32 - Chronic kidney disease, stage 3b Code(s): N17.9 - Acute kidney failure, unspecified; N18.9 - Chronic kidney disease, unspecified Status: Acute Assessment and Plan: On chart review, baseline creatinine runs 1.7-2.1 mostly consistent with CKD III. Creatinine 2.8 on admission related to dehydration from the DKA and nausea/vomiting. Renal ultrasound in April 2021 shows renal cortical thinning and atrophy. CT scan this admission showing no concerning findings regarding the kidneys or bladder. With IV fluids, creatinine has decreased to 1.8 which is within his baseline. IV fluids stopped and Cr remained stable. (4) Dehydration: Code(s): E86.0 - Dehydration Status: Acute Assessment and Plan: Related to the DKA and nausea/vomiting. As above. (5) Diabetic gastroparesis: Code(s): E11.43 - Type 2 diabetes mellitus with diabetic autonomic (poly)neuropathy; K31.84 - Gastroparesis Status: Chronic Assessment and Plan: Patient with known gastroparesis. He does not take medications at home for this. It appears that he has infrequent episodes of nausea and vomiting. Improvement with scheduled Reglan. Stop reglan at discharge. (6) Hypertension: Qualifiers: Hypertension type: unspecified Qualified Code(s): I10 - Essential (primary) hypertension Code(s): I10 - Essential (primary) hypertension Status: Acute Assessment and Plan: Patient's blood pressure was monitored closely. Blood pressure remained poorly controlled. EKG reviewed personally showing iRBBB. Patient does not have known chronic lung disease. Echo showing EF 65-70%, Grade 1 diastolic dysfunction and intact septum but no pulmonary HTN. CXR clear. Apnea link normal. Not on O2. Added Norvasc and then Lisinopril
--- NOTE | 2021-08-07 11:51 | PCNFU ---
Nutrition Follow-Up Complete: Inadequate Oral Intake as related to emesis as evidenced by poor po intake. Goal: adequate intake of at least 75% of meals Pt is making progress towards goal. Continue with current goal at this time. Pt current nutrition is Low fiber diet Last recorded weight is 105.2 kg, up 5.2kg from weight reported on admit. Recommend re-weighing prior to discharge. Bowel Motility: No new BM reported. Labs Reviewed: Hgb 12.5, Hct 39.1, Alb 3.4, Na 135, K 3.1, GFR 41, Cr 1.8, Ca 7.5 Meds Noted: Lovenox, Apresoline, Lantus, Prinivil, Lopressor, Protonix Skin: No new skin breakdown at this time. WNL. Additional Notes: Nausea and vomiting are subsiding. Current nutrition has been advanced from clear liquid to low fiber diet with reported intake of 50% and 100% x3. Pt appears to be tolerating diet orders with adequate intake. Per physician notes, pt unable to tolerate Ensure Clear due to pulp in drink. Recommend adding orders for dietary supplement of Glucerna Shake BID if intake remains under 50%. Agree with diet orders at this time. Will continue to follow. Will monitor every 7 days.
[2021-08-07 12:21] LABS: Glucose Point of Care 151 mg/dl (65-105)
== END 2021-08-07 14:35 | disposition home or self-care (01) | DRG 420 ==
LOC: ANHED 08-04 00:59 → ANHICU 08-04 01:29 → ANH3MEDSUR 08-07 11:21 → ANHICU 08-10 16:53
PROVIDERS: Physician Assistant; Admitting Provider Internal Medicine; Emergency Provider Emergency Medicine; PCP Family Medicine; Visit Provider Internal Medicine
DX: E11.10 Type 2 diabetes mellitus with ketoacidosis without coma (principal); E86.0 Dehydration; K31.84 Gastroparesis; N17.9 Acute kidney failure, unspecified; E11.22 Type 2 diabetes mellitus with diabetic chronic kidney disease; E11.43 Type 2 diabetes mellitus with diabetic autonomic (poly)neuropathy; E11.319 Type 2 diabetes mellitus with unspecified diabetic retinopathy without macular edema; I13.10 Hypertensive heart and chronic kidney disease without heart failure, with stage 1 through stage 4 chronic kidney disease, or unspecified chronic kidney disease; D63.1 Anemia in chronic kidney disease; N18.32 Chronic kidney disease, stage 3b; D72.829 Elevated white blood cell count, unspecified; F12.90 Cannabis use, unspecified, uncomplicated; F31.9 Bipolar disorder, unspecified; K57.90 Diverticulosis of intestine, part unspecified, without perforation or abscess without bleeding; K21.9 Gastro-esophageal reflux disease without esophagitis; R00.0 Tachycardia, unspecified; Z89.421 Acquired absence of other right toe(s); Z79.4 Long term (current) use of insulin; Z87.891 Personal history of nicotine dependence; Z79.84 Long term (current) use of oral hypoglycemic drugs
CPT/HCPCS: 36415; 36600; 71045; 74019; 74176; 80048; 80053; 81001; 82010; 82375; 82805; 82948; 83036; 83050; 83605; 83690; 83735; 84100; 84443; 85025; 85027; 86140; 87040; 93005; 93306; 94762; 96361; 96365; 96372; 96374; 96375; 96376; 99285; A9270; C9113; G0378; G0379; J0360; J1200; J1650; J1815; J2405; J2543; J2550; J2765; J3475; J7030; J7040

== ENCOUNTER 2023-03-20 20:06 | Inpatient (IN) | payer OTHER, SELFPAY ==
--- NOTE | ~2023-03-20 | CT_ITS ---
Noncontrast CT scan of the left ankle CLINICAL HISTORY: Wound, osteomyelitis TECHNIQUE: Axial noncontrast imaging of the left ankle is performed. Sagittal and coronal reformatted images were constructed. Dose reduction technique was used on this scan by utilizing automated expos ure control and iterative reconstruction technique. The dose-length product (DLP) was 459.10 mGy-cm. Findings: No fracture or dislocation seen. Osseous alignment is anatomic. No destructive change or pe riosteal reaction seen to suggest osteitis. Visualized joint spaces are preserved. No significant thuy nt effusion identified. There is nonspecific subcutaneous soft tissue edema at the lateral to anterolateral aspect of the ank le. No focal fluid collection seen. No soft tissue mass evident. IMPRESSION: No CT evidence for osteomyelitis or abscess. Nonspecific subcutaneous soft tissue edema at the lateral to anterolateral aspect of the ankle. Reviewed, dictated and finalized at [facility]. ROENTEROLOGY PROFESSOR IMPRESSION: No CT evidence for osteomyelitis or abscess. Nonspecific subcutaneous soft tissue edema at the lateral to anterolateral aspe ct of the ankle.
--- NOTE | ~2023-03-20 | CT_ITS ---
Noncontrast CT scan of the left foot CLINICAL HISTORY: Wound, osteomyelitis TECHNIQUE: Axial noncontrast imaging of the left foot was performed. Sagittal and coronal reformatted images were constructed. Dose reduction technique was used on this scan by utilizing automated expos ure control and iterative reconstruction technique. The dose-length product (DLP) was 416.19 mGy-cm. Findings: No fracture or dislocation seen. Osseous alignment is anatomic. No destructive change or pe riosteal reaction seen to suggest osteomyelitis. Joint spaces are preserved. No definite joint effusi on identified. There is probable focal soft tissue ulcer at the lateral aspect of the foot at the level of the fifth metatarsal head. There is soft tissue gas in the region of the mid to distal fifth metatarsal shaft laterally and dorsally. No definite abscess seen. No other discrete soft tissue abnormality seen. IMPRESSION: No CT evidence for osteomyelitis or abscess. MR could be considered for more sensitive evaluation for early osteomyelitis, as indicated. Soft tissue gas in the region of the mid to distal fifth metatarsal with associated probable focal ul cer, consistent with soft tissue infection. Reviewed, dictated and finalized at [facility]. ICAL PHARMACY SPECIALIST IMPRESSION: No CT evidence for osteomyelitis or abscess. MR could be considered for more se nsitive evaluation for early osteomyelitis, as indicated. Soft tissue gas in the region of the mid to distal fifth metatarsal with associ ated probable focal ulcer, consistent with soft tissue infection.
--- NOTE | ~2023-03-20 | XR_ITS ---
EXAMINATION: XR chest 1V portable Exam Date/Time: 03/20/2023 21:50 CHILD CARE LEAD TEACHER HISTORY: weakness Comparison: 08/04/2021. RESULT: Lines, tubes, and devices: None. Lungs and pleura: Clear. Cardiomediastinal silhouette: Stable. Other: No acute osseous or upper abdominal finding. IMPRESSION: No acute cardiopulmonary process. Reviewed, dictated and finalized at location [facility]. D CARE LEAD TEACHER
--- NOTE | ~2023-03-20 | XR_ITS ---
EXAM: XR foot LT min 3V DATE: 03/20/2023 21:57 HISTORY: wound/ulcer . COMPARISON: None available. FINDINGS: Normal mineralization. No fracture or dislocation. No lytic or blastic lesion. Joint space s are maintained. No erosion or periosteal change. Soft tissues within normal limits. IMPRESSION: No acute osseous finding in the left foot. Reviewed, dictated and finalized at location [facility]. GER WIND
[2023-03-20 20:09] VITALS: BP 105/58; PULSE 106; RESP 16; TEMP 36.3; O2SAT 96
[2023-03-20 20:33] VITALS: BP 105/58; PULSE 106; RESP 16; O2SAT 96
--- NOTE | 2023-03-20 21:44 | ECG_ITS ---
Measurements Intervals [place] Rate: 78 P: 44 ID: 150 QRS: -28 QRSD: 104 T: -9 QT: 354 QTc: 404 Interpretive Statements SINUS RHYTHM DELAYED PRECORDIAL R/S TRANSITION BORDERLINE T WAVE ABNORMALITY- INFERIOR LEADS BORDERLINE ECG COMPARED TO ECG 08/03/2021 22:36:22 SINUS RHYTHM NOW PRESENT Electronically Signed On 03-21-2023 6:24:13 TECHNICAL DEVELOPER by Radhames Frank D.O.
--- NOTE | 2023-03-20 22:07 | ED.GENADULT ---
HPI - General Adult General Chief complaint: Wound/Laceration Stated complaint: DM ulcer on left foot Time Seen by Provider: 03/20/23 20:54 History of Present Illness HPI narrative: Patient 47-year-old gentleman who presents the emergency department with chief complaint of left foot cellulitis and wound. Patient reports he has prior history of diabetes and has had diabetic wounds to his foot before patient states that he noticed that he started getting some redness in the dorsum of his left foot and noticed a new ulceration that opened up at the fifth metatarsal area. The patient states there has been a little bit of bloody drainage from the site the patient reports that he normally has peripheral neuropathy so has decree sensation in the foot reports no known trauma but thinks that he did wear a support stocking that may have scratched his skin. Patient reports no fever Related Data Home Medications Medication Instructions Recorded Confirmed insulin glargine 100 unit/mL 30 unit subcut QHS 04/16/21 03/21/23 subcutaneous cartridge empagliflozin 25 mg tablet 25 mg PO DAILY 03/21/23 03/21/23 (Jardiance) lisinopril 20 1 tablet PO BID 03/21/23 03/21/23 mg-hydrochlorothiazide 12.5 mg tablet metoprolol tartrate 50 mg tablet 50 mg PO BID 03/21/23 03/21/23 omeprazole 20 mg capsule,delayed 20 mg PO DAILY 03/21/23 03/21/23 release sertraline 50 mg tablet 50 mg PO DAILY 03/21/23 03/21/23 simvastatin 20 mg tablet 20 mg PO HS 03/21/23 03/21/23 Allergies Allergy/AdvReac Type Severity Reaction Status Date / Time bee stings Allergy Unknown Unknown Uncoded 03/20/23 20:32 Review of Systems Review of Systems: A 10 system review of systems was completed on the patient and is negative except for what is stated in the HPI. Nursing and ancillary documentation was reviewed. [facility] Past Medical History Medical History Bipolar disorder Chronic anemia Chronic kidney disease, stage 3 Baseline creatinine appears to be between 1.60 and 1.80. Diabetic gastroparesis Diabetic retinopathy GERD (gastroesophageal reflux disease) History of GI bleed Secondary to esophagitis noted on EGD in November 2017. History of osteomyelitis Right 5th toe, status post amputation. History of suicide attempt Hypertension Surgical History Surgical History Status post amputation of toe of right foot Right 5th toe amputation including the distal metatarsal in 2018. Open amputation of right 5th metatarsal in July 2019 for osteomyelitis of right 5th metatarsal stump. Family History Family History Other Adopted Social History Social History Social History: The patient lives in [place] with his and their 3 children, 1 biological daughter and 2 step children. 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 He is a previous smoker, both cigars and cigarettes. He does smoke cannabis. He denies alcohol use. , Pari, is his surrogate decision maker and he wishes to be a full code. Smoking packs per day: 0.5 Smoking cigarettes per day: 10.0 Years smoked: 20 Smoking pack-years: 10.00 Smoking status: Former smoker Second hand tobacco smoke exposure: Yes Additional smoking assessment comments: Alcohol intake: never Substance use: current Substance use type: marijuana Last use: 03/20/23 Lack of Transportation: No Lack of Food: Never True Current Housing: I Have Housing Concerned About Future Housing: No Difficulty Paying Gas/Electric Bills: No Difficulty Paying for Meds: No Currently Unemployed: YES Education: Associate Degree Difficulty w/
[2023-03-20 22:12] LABS: Lactic Acid Reflex 1.8 mmol/L (0.7-2.0)
[2023-03-20] MEDS: CEFEPIME 2 GM/NS 50 ML 2 GM/50 ML BAG IVPB (22:15)
[2023-03-20 22:17] VITALS: BP 104/81; PULSE 79; O2SAT 99
[2023-03-20 22:17] LABS: Prothrombin Time 13.2 Seconds (11.1-14.7)
[2023-03-20 22:18] LABS: Partial Thromboplastin Time 33.4 SECONDS (22.3-36.8)
[2023-03-20 22:22] LABS: Alanine Aminotransferase 14 U/L (6-50); Albumin Level 3.8 g/dL (3.5-5.1); Alkaline Phosphatase 105 U/L (38-126); Anion Gap 11 mmol/L (8-16); Aspartate Amino Transferase 20 U/L (17-59); Bilirubin,Total 0.6 mg/dL (0.2-1.3); Blood Urea Nitrogen 31 mg/dL (9-20); Calcium 8.7 mg/dL (8.4-10.2); Carbon Dioxide 28 mmol/L (22-30); Chloride 98 mmol/L (98-107); Estimated CRCL calculation 38 ml/min; Estimated Glomerular Filt Rate 28; Glucose 196 mg/dL (65-110); Magnesium 2.3 mg/dL (1.6-2.3); Potassium 3.9 mmol/L (3.4-5.0); Sodium 137 mmol/L (137-145)
[2023-03-20 22:34] LABS: Procalcitonin 0.2 ng/mL
[2023-03-20 22:36] LABS: CRP 14.5 mg/dL (<1.0)
[2023-03-20 22:37] LABS: Appearance Urine Clear (Clear); Bilirubin Urine Negative (Negative); Blood Urine Negative (Negative); Color Urine Yellow (Yellow); Glucose Urine UA 3+ mg/dL (Negative); Ketones Urine Negative (Negative); Leukocyte Esterase Ur Negative LEU/UL (Negative); Nitrate Urine Negative (Negative); Protein Urine Negative (Negative); Specific Grav Ur 1.022 (1.001-1.035); pH Urine 5.5 (5.0-9.0)
[2023-03-20 22:51] LABS: Add Urine Microscopic? NO
[2023-03-20 22:53] LABS: Basophils Percent Auto 0.3 % (0.2-1.2); Eosinophils Absolute Auto 0.1 K/mm3 (0-0.3); Eosinophils Percent Auto 0.8 % (0-4.4); Hematocrit 42.4 % (42.0-52.0); Hemoglobin 12.9 g/dL (14.0-18.0); Immature Granulocyte Absolute 0.05 K/mm3 (0.00-0.031); Immature Granulocyte Percent A 0.4 % (0-0.5); Lymphocytes Absolute Auto 1.87 K/mm3 (0.9-3.2); Lymphocytes Percent Auto 16.1 % (18.3-44.2); Mean Corpuscular HGB Conc 30.4 g/dl (32-36); Mean Corpuscular Hemoglobin 25.3 pg (26-34); Mean Corpuscular Volume 83.1 fl (80-100); Mean Platelet Volume 11.1 fl (7.4-10.4); Monocytes Percent Auto 8.9 % (2.6-8.5); Neutrophils Absolute Auto 8.5 K/mm3 (1.3-6.7); Neutrophils Percent Auto 73.5 % (45.5-73.1); Platelet Count Result 279 k/mm3 (150-375); Red Cell Distribution Width 14.1 % (11.5-14.5); White Blood Count 11.6 K/mm3 (4.5-10.0)
--- NOTE | 2023-03-20 23:05 | PC.NURSE ---
This RN attempted to call IMU to give report but no one answered.
[2023-03-20] MEDS: SODIUM CHLORIDE 0.9% IV 1,000 ML 999 ML IV CONT (23:23)
[2023-03-20] MEDS: metroNIDAZOLE 500 MG/ISO 100ML 500 MG/100 ML BAG 100 MG IVPB (23:23)
[2023-03-20 23:54] LABS: Erythrocyte Sedimentation Rate 21 mm/hr (0-20)
[2023-03-21] VITALS (8 sets, daily range): BP systolic 119–146; BP diastolic 66–89; PULSE 78–100; RESP 12–18; TEMP 36.3–36.8; O2SAT 96–99; BMI 29.0
[2023-03-21] MEDS: VANCOMYCIN 1,250 MG/NS 250 ML 1,250 MG/250 ML BAG 166.67 MG IVPB ×2 (00:26→02:13)
[2023-03-21 01:24] LABS: Glucose Point of Care 203 mg/dl (65-105)
--- NOTE | 2023-03-21 01:42 | ADMGEN ---
This patient, Dejan Sevilla, was admitted to [facility] Surg Room 328-01. Patient/family oriented to hospital policies and general routines including ID bracelet, bed and alarms, visiting hours, pain management, procedures, bathroom and other care routines, personal items, smoking policy, room service/diet, and visiting hours. Information on how to activate the Rapid Response Team has been discussed. Patient/Family are encouraged to report perceived risks to care and to ask questions if they do not understand what they are told or what they should do.
[2023-03-21] MEDS: metroNIDAZOLE 500 MG/ISO 100ML 500 MG/100 ML BAG 100 MG IVPB (05:25)
[2023-03-21 06:12] LABS: Estimated CRCL calculation 42 ml/min; Estimated Glomerular Filt Rate 33
[2023-03-21 07:54] LABS: Glucose Point of Care 139 mg/dl (65-105)
[2023-03-21] MEDS: CEFEPIME 1 GM/NS 50 ML 1 GM/50 ML BAG IVPB (09:36)
--- NOTE | 2023-03-21 11:02 | PCWOUND ---
WOCN NOTE Received referral to see patient for foot wound. patient being followed by surgeon, no wound care assessment needed at this time.
[2023-03-21 12:13] LABS: Glucose Point of Care 143 mg/dl (65-105)
--- NOTE | 2023-03-21 13:46 | PM.CNGS ---
Assessment and Plan Assessment and plan (1) Ulcer of left foot: Code(s): L97.529 - Non-pressure chronic ulcer of other part of left foot with unspecified severity Status: Acute Assessment and Plan: The patient has a diabetic left foot ulcer on the plantar aspect of his foot that tunnels to an opening on the dorsal foot with purulent drainage, an odor, and surrounding cellulitis. No evidence of osteomyelitis on plain films or CT. I applied a gauze dressing and we can initiate local wound care. Discussed with the patient that this will likely need incision and drainage of the left foot abscess with possible debridement. Description of the procedure, risks, benefits, and alternatives were discussed. Patient agrees with proceeding. I will discuss the case with Dr. Kuo and keep the patient NPO for now. Further plans for timing of surgery pending. (2) Cellulitis of foot, left: Code(s): L03.116 - Cellulitis of left lower limb Status: Acute Assessment and Plan: Continue IV antibiotics, see plan above. (3) Type 2 diabetes mellitus: Code(s): E11.9 - Type 2 diabetes mellitus without complications Status: Chronic Assessment and Plan: Discussed the importance of glycemic control with the patient in regards to wounds and healing. Management per Hospitalist. (4) Sermy-kx-mzjdnru kidney injury: Qualifiers: Acute renal failure type: unspecified Chronic kidney disease stage: stage 3 (moderate) Chronic kidney disease stage 3 subtype: stage 3b (GFR 30-44) Qualified Code(s): N17.9 - Acute kidney failure, unspecified; N18.32 - Chronic kidney disease, stage 3b Code(s): N17.9 - Acute kidney failure, unspecified; N18.9 - Chronic kidney disease, unspecified Status: Acute Plan I have discussed the patient's case and plan of care with Dr. Kuo. History of Present Illness Consult details Consult date: 03/21/23 Reason for consult: other (Diabetic left foot infection) Requesting physician: Parag Gibson MD Narrative: This is a 47-year-old with insulin-dependent diabetes mellitus and bipolar disorder, who is several complications of his diabetes. He has peripheral neuropathy and a history of a right fifth metatarsal amputation at [facility] for a diabetic foot infection in 2018. He had an another right foot infection in 2019 with osteomyelitis of the fifth metatarsal stump that resulted in open amputation of the right fifth metatarsal by Dr. Dumont. He eventually healed from surgery. About 2 months ago, he developed a callus on the bottom of his left foot over the fifth metatarsal. He admits to having a change in his gait after his last surgery in 2019 that he thinks caused a callus on the lateral part of his right foot. He denies having diabetic shoes and wears his normal footwear. The callus eventually opened up and became an ulcer. His has been helping with caring for the wound using Silvadene and gauze dressing changes. Two days ago, he noticed redness to the dorsal aspect of his left foot. This progressively worsened yesterday and ultimately brought him into the ER for evaluation. [place] [address], glucose 196, lactic acid 1.8, and CRP 14.5. X-rays of the left foot are negative for osteomyelitis. CT scan of the left foot and ankle showed no evidence of osteomyelitis or abscess. He was admitted and started on broad-spectrum IV antibiotics. Our service was consulted for the left diabetic foot infection. He is now seen on the medical floor. Review of Systems Review of Systems: All systems reviewed & are unremarkable except as noted in HPI and below PMFSH Past Medical History Medical History Bipolar disorder Chronic anemia Chronic kidney disease, stage 3 Baseline creatinine appears to be between 1.60 and 1.80. Diabetic gastroparesis Diabetic retinopathy GERD (gastroesophage
--- NOTE | 2023-03-21 15:25 | PM.IMHP ---
H&P: HPI History of Present Illness Date/Time: 03/21/23 15:25 Chief Complaint: Foot pain, inflammation, mild fever Narrative: This is a 47 y/o M with a PMH of multiple foot infections and minor surgeries related to diabetic ulcers and infections. This recent hx is a L foot ulcer and open callus that he has been managing for months that just popped 2 days ago. He noticed redness 2 days ago and also sustained a low grade fever to 100 F. After 12 hrs the fever broke. Since that time he denies any complaints of fever, chills, or any other systemic complaints. He manages his DM with insulin and various oral medications. He takes 30 u of insulin every night. His PMH also includes peripheral neuropathy from DM, htn, gerd, hld, and ckd stage 3. In the ER, he was started on vanc, cefepime and flagyl. His WBC was 11.6 in the ER. His Cr was 2.20. His baseline is around 1.80. His lactic acid and procalcitonin were normal/negative. His noncon L foot CT in the ER showed Soft tissue gas in the region of the mid to distal fifth metatarsal with associated probable focal ulcer, consistent with soft tissue infection. Review of Systems Review of Systems: negative unless specified in hpi PMFSH Past Medical History Medical History Bipolar disorder Chronic anemia Chronic kidney disease, stage 3 Baseline creatinine appears to be between 1.60 and 1.80. Diabetic gastroparesis Diabetic retinopathy GERD (gastroesophageal reflux disease) History of GI bleed Secondary to esophagitis noted on EGD in November 2017. History of osteomyelitis Right 5th toe, status post amputation. History of suicide attempt Hypertension Surgical History Surgical History Status post amputation of toe of right foot Right 5th toe amputation including the distal metatarsal in 2017. Open amputation of right 5th metatarsal in July 2019 for osteomyelitis of right 5th metatarsal stump. Family History Family History Other Adopted Social History Social History Social History: The patient lives in [place] with his and their 3 children, 1 biological daughter and 2 step children. 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 He is a previous smoker, both cigars and cigarettes. He does smoke cannabis. He denies alcohol use. , Pari, is his surrogate decision maker and he wishes to be a full code. Smoking packs per day: 0.5 Smoking cigarettes per day: 10.0 Years smoked: 20 Smoking pack-years: 10.00 Smoking status: Former smoker Second hand tobacco smoke exposure: Yes Additional smoking assessment comments: Alcohol intake: never Substance use: current Substance use type: marijuana Last use: 03/20/23 Lack of Transportation: No Lack of Food: Never True Current Housing: I Have Housing Concerned About Future Housing: No Difficulty Paying Gas/Electric Bills: No Difficulty Paying for Meds: No Currently Unemployed: YES Education: Associate Degree Difficulty w/ Childcare or Family Care: No Gender identity (if verbalized by the patient): Male Spiritual care concerns: No Agree to blood products: Yes Meds Home Medications and Allergies Home Medications Medication Instructions Recorded Confirmed Type insulin glargine 100 unit/mL 30 unit subcut QHS 04/16/21 03/21/23 History subcutaneous cartridge empagliflozin 25 mg tablet 25 mg PO DAILY 03/21/23 03/21/23 History (Jardiance) lisinopril 20 1 tablet PO BID 03/21/23 03/21/23 History mg-hydrochlorothiazide 12.5 mg tablet metoprolol tartrate 50 mg tablet 50 mg PO BID 03/21/23 03/21/23 History omeprazole 20 mg capsuleradha
[2023-03-21] MEDS: LACTATED RINGERS 1,000 ML 100 ML IV CONT (15:43)
[2023-03-21 17:01] LABS: Glucose Point of Care 108 mg/dl (65-105)
[2023-03-21] MEDS: hydroCHLOROthiazide 12.5 MG CAPSULE PO (17:26)
[2023-03-21] MEDS: DEXTROSE 5%/0.45% SOD CHL 1,000 ML 75 ML IV CONT (17:27)
[2023-03-21] MEDS: lisinopriL 20 MG TABLET PO (17:31)
[2023-03-21] MEDS: PIPERACILLN/TAZ 3.375GM/NS50ML 3.375 GM/50 ML BAG IVPB ×2 (17:31→21:57)
[2023-03-21] MEDS: CLINDAMYCIN 600 MG/D5W 50 ML 600 MG/50 ML PIGGYBACK 100 MG IVPB ×2 (18:27→23:59)
[2023-03-21 21:26] LABS: Glucose Point of Care 179 mg/dl (65-105)
[2023-03-21] MEDS: INSULIN GLARGINE (*BKC) 100 UNITS/ML 30 UNITS SUB-Q (21:56)
[2023-03-21] MEDS: SIMVASTATIN 20 MG TABLET PO (21:57)
[2023-03-21] MEDS: METOPROLOL TARTRATE 50 MG TAB PO (21:59)
[2023-03-22] VITALS (14 sets, daily range): BP systolic 85–135; BP diastolic 62–88; PULSE 71–91; RESP 12–16; TEMP 35.9–36.6; O2SAT 93–100
[2023-03-22] MEDS: PIPERACILLN/TAZ 3.375GM/NS50ML 3.375 GM/50 ML BAG IVPB ×4 (04:24→21:00)
[2023-03-22 06:08] LABS: Basophils Absolute Auto 0.1 K/mm3 (0.0-0.1); Basophils Percent Auto 0.6 % (0.2-1.2); Eosinophils Absolute Auto 0.3 K/mm3 (0-0.3); Eosinophils Percent Auto 3.5 % (0-4.4); Hematocrit 41.6 % (42.0-52.0); Hemoglobin 12.6 g/dL (14.0-18.0); Immature Granulocyte Absolute 0.03 K/mm3 (0.00-0.031); Immature Granulocyte Percent A 0.3 % (0-0.5); Lymphocytes Absolute Auto 1.62 K/mm3 (0.9-3.2); Lymphocytes Percent Auto 18.7 % (18.3-44.2); Mean Corpuscular HGB Conc 30.3 g/dl (32-36); Mean Corpuscular Hemoglobin 25.3 pg (26-34); Mean Corpuscular Volume 83.4 fl (80-100); Mean Platelet Volume 10.1 fl (7.4-10.4); Monocytes Absolute Auto 0.8 K/mm3 (0.1-0.6); Monocytes Percent Auto 8.7 % (2.6-8.5); Neutrophils Absolute Auto 5.9 K/mm3 (1.3-6.7); Neutrophils Percent Auto 68.2 % (45.5-73.1); Platelet Count Result 254 k/mm3 (150-375); Red Blood Count 4.99 M/mm3 (4.6-6.20); White Blood Count 8.7 K/mm3 (4.5-10.0)
[2023-03-22 06:26] LABS: Anion Gap 10 mmol/L (8-16); Blood Urea Nitrogen 25 mg/dL (9-20); Calcium 8.7 mg/dL (8.4-10.2); Carbon Dioxide 25 mmol/L (22-30); Chloride 104 mmol/L (98-107); Estimated CRCL calculation 49 ml/min; Estimated Glomerular Filt Rate 39; Glucose 133 mg/dL (65-110); Magnesium 2.3 mg/dL (1.6-2.3); Potassium 3.9 mmol/L (3.4-5.0); Sodium 139 mmol/L (137-145)
[2023-03-22 06:33] LABS: Hemoglobin A1C 7.7 % (<5.7)
[2023-03-22 08:25] LABS: Glucose Point of Care 155 mg/dl (65-105)
[2023-03-22] MEDS: METOPROLOL TARTRATE 50 MG TAB PO ×2 (09:34→20:57)
[2023-03-22] MEDS: lisinopriL 20 MG TABLET PO ×2 (09:34→18:16)
[2023-03-22] MEDS: SERTRALINE HCL 50 MG TABLET PO (09:34)
[2023-03-22] MEDS: PANTOPRAZOLE 40 MG TABLET PO (09:35)
[2023-03-22] MEDS: CLINDAMYCIN 600 MG/D5W 50 ML 600 MG/50 ML PIGGYBACK 100 MG IVPB ×3 (09:35→23:36)
[2023-03-22] MEDS: EMPAGLIFLOZIN 25 MG TABLET PO (09:35)
[2023-03-22] MEDS: hydroCHLOROthiazide 12.5 MG CAPSULE PO ×2 (09:35→18:16)
[2023-03-22] MEDS: ENOXAPARIN 40 MG/0.4 ML SYRINGE SUB-Q (09:36)
--- NOTE | 2023-03-22 11:28 | WPDHPUPDATE1 ---
History and Physical Update Update Date/Time: 03/22/23 11:28 History and Physical has been reviewed, including an updated exam of the patient. There are NO changes in the patient's condition. Risks, benefits, and alternatives have been discussed and questions answered. Patient agrees to proceed with procedure.
[2023-03-22 12:22] LABS: Glucose Point of Care 144 mg/dl (65-105)
[2023-03-22] MEDS: LACTATED RINGERS 1,000 ML 30 ML IV CONT (14:00)
--- NOTE | 2023-03-22 15:50 | WPDANESEPPF ---
Anes - Initial Pre Proc Eval Procedure: Operation Date: 03/22/23 15:00 Proposed Procedures p Left foot Wound Debridement - Raul Kuo DO Date/Time: 03/22/23 15:50 Surgeon: Martha Scott DO Pre Op Diagnosis: Left Foot Cellulitis/Ulceration Patient Data Age: 47 Gender: M Height: 1.83 m Weight: 96.9 kg Last Vital Signs Temp 36.6 C 03/22/23 15:10 Pulse 73 03/22/23 15:10 Resp 16 03/22/23 15:10 BP 131/86 03/22/23 15:10 Pulse Ox 96 03/22/23 15:10 O2 Del Method Room Air 03/22/23 15:10 Allergies Allergy/AdvReac Type Severity Reaction Status Date / Time bee stings Allergy Unknown Unknown Uncoded 03/20/23 20:32 Home Medications Medication Instructions Recorded Confirmed Type insulin glargine 100 unit/mL 30 unit subcut QHS 04/16/21 03/21/23 History subcutaneous cartridge empagliflozin 25 mg tablet 25 mg PO DAILY 03/21/23 03/21/23 History (Jardiance) lisinopril 20 1 tablet PO BID 03/21/23 03/21/23 History mg-hydrochlorothiazide 12.5 mg tablet metoprolol tartrate 50 mg tablet 50 mg PO BID 03/21/23 03/21/23 History omeprazole 20 mg capsule,delayed 20 mg PO DAILY 03/21/23 03/21/23 History release sertraline 50 mg tablet 50 mg PO DAILY 03/21/23 03/21/23 History simvastatin 20 mg tablet 20 mg PO HS 03/21/23 03/21/23 History Laboratory Tests 03/21/23 03/21/23 03/22/23 16:50 21:11 05:43 WBC 8.7 K/mm3 (4.5-10.0) RBC 4.99 M/mm3 (4.6-6.20) Hgb 12.6 L g/dL (14.0-18.0) Hct 41.6 L % (42.0-52.0) MCV 83.4 fl (80-100) MCH 25.3 L pg (26-34) MCHC 30.3 L g/dl (32-36) RDW 14.0 % (11.5-14.5) Plt Count 254 k/mm3 (150-375) MPV 10.1 fl (7.4-10.4) Immature Gran % (Auto) 0.3 % (0-0.5) Neut % (Auto) 68.2 % (45.5-73.1) Lymph % (Auto) 18.7 % (18.3-44.2) [place] % (Auto) 8.7 H % (2.6-8.5) Eos % (Auto) 3.5 % (0-4.4) Baso % (Auto) 0.6 % (0.2-1.2) Lymph # (Auto) 1.62 K/mm3 (0.9-3.2) [place] # (Auto) 0.8 H K/mm3 (0.1-0.6) Eos # (Auto) 0.3 K/mm3 (0-0.3) Baso # (Auto) 0.1 K/mm3 (0.0-0.1) Abs Immat Gran (auto) 0.03 K/mm3 (0.00-0.031) Absolute Neuts (auto) 5.9 K/mm3 (1.3-6.7) Absolute Nucleated RBC 0.0 K/mm3 (0.0-0.012) Nucleated RBC % 0.0 % (0.0-0.2) Sodium 139 mmol/L (137-145) Potassium 3.9 mmol/L (3.4-5.0) Chloride 104 mmol/L (98-107) Carbon Dioxide 25 mmol/L (22-30) Anion Gap 10 mmol/L (8-16) BUN 25 H mg/dL (9-20) Creatinine 1.90 H mg/dL (0.7-1.3) Estim Creat Clear Calc 49 ml/min Estimated GFR 39 L (59 - ) Glucose 133 H mg/dL (65-110) POC Capillary Glucose 108 H mg/dl 179 H mg/dl (65-105) (65-105) Hemoglobin A1c 7.7 H % (<5.7) Calcium 8.7 mg/dL (8.4-10.2) Magnesium 2.3 mg/dL (1.6-2.3) 03/22/23 03/22/23 07:59 12:06 WBC RBC Hgb Hct MCV MCH MCHC RDW Plt Count MPV Immature Gran % (Auto) Neut % (Auto) Lymph % (Auto) [place] % (Auto) Eos % (Auto) Baso % (Auto) Lymph # (Auto) [place] # (Auto) Eos # (Auto) Baso # (Auto) Abs Immat Gran (auto) Absolute Neuts (auto) Absolute Nucleated RBC Nucleated RBC % Sodium Potassium Chloride Carbon Dioxide Anion Gap BUN Creatinine Estim Creat Clear Calc Estimated GFR Glucose POC Capillary Glucose 155 H mg/dl 144 H mg/dl (65-105) (65-105) Hemoglobin A1c Calcium [place]
--- NOTE | 2023-03-22 16:25 | W.PM.PROC2 ---
Procedure Note - Detailed Date of Procedure 03/22/23 Pre-op Diagnosis Left Foot Cellulitis/Ulceration Post-op Diagnosis Same Procedure Performed 1. Sharp excisional debridement of left foot wound measuring 2 cm x 2 cm including skin and subcutaneous fat 2. Incision and drainage of left foot abscess Surgeon Raul Kuo DO Anesthesia General and Local (0.5% bupivacaine) Indications This is a 47-year-old man who presented with a left foot wound that was worsening and developing into cellulitis. He had a chronic ulcer on the plantar surface of his left 5th metatarsal and this had worsened over the past several days. He had been treating the ulcer on his own at home for a couple months. The patient is diabetic but he feels that his sugars have been overall well controlled recently. His hemoglobin A1c is currently 7.7%. The patient was evaluated in the ER and foot x-rays and CT were performed. There was soft tissue thickening and ulceration but no evidence of underlying osteomyelitis. He was admitted and started on broad-spectrum IV antibiotics. Discussions were made with the patient about treatment options and decision was made to proceed with debridement of left foot wound. Findings Debridement of left foot wound was performed. The plantar surface of the left foot wound had some necrotic skin and subcutaneous tissue including subcutaneous fat. Sharp excisional debridement was performed using a 15 blade scalpel until there was viable healthy appearing tissue. The wound measurements were about 2 cm x 2 cm. The plantar wound over the left 5th metatarsal was also tracking to the dorsal surface of the foot. An incision was made directly over this region to drain out the purulence fluid. The incision was extended about 2 cm anteriorly and about 2 cm proximally on the forefoot. No further purulence drainage was noted. The wound was then packed with half-inch iodoform gauze. Description of Procedure Procedure as well as risks, benefits, and alternatives were discussed with the patient. Written consent was obtained and placed in chart prior to procedure. Patient was brought back to surgical suite. He was placed supine on operating table. Time-out was done to confirm patient and procedure. He was then intubated by the anesthesia department. His left foot area was prepped and draped in sterile fashion using Betadine prep. 0.5% bupivacaine was infiltrated locally around the foot wound. The necrotic tissue was sharply debrided using a 15 blade scalpel. I then used a curved hemostat and advanced the hemostat from the plantar surface wound up anteriorly to the dorsum of the foot. There were 2 separate wounds that appeared to communicate under the skin. An incision was made on the lateral side of the foot to open up the wound between these 2 openings. The wound was then probed further and this did appear to be tracking slightly proximal on the forefoot for about another 2 cm. The incision was carried proximally to this region where was tracking using the 15 blade scalpel. Hemostasis was then achieved with electrocautery. The area was then irrigated with sterile saline. No other purulence or tracking was noted. The wound was then packed with half-inch iodoform gauze. Fluff gauze and Kerlix wrap were then applied. The patient was then awakened from anesthesia, extubated, and transferred to recovery. Estimated Blood Loss 5 Urine Output 550 Packing Yes (Half-inch iodoform gauze) Complications No immediate complications Condition Stable Disposition Floor [facility] Billing Surgery - Charge Forward: Surgery Billing
[2023-03-22 16:57] LABS: Glucose Point of Care 110 mg/dl (65-105)
[2023-03-22] MEDS: DEXTROSE 5%/0.45% SOD CHL 1,000 ML 75 ML IV CONT (18:16)
--- NOTE | 2023-03-22 18:48 | PM.IMPN ---
Progress Note: A&P Assessment and Plan (1) Ulcer of left foot: Code(s): L97.529 - Non-pressure chronic ulcer of other part of left foot with unspecified severity Status: Acute (2) Cellulitis of foot, left: Code(s): L03.116 - Cellulitis of left lower limb Status: Acute (3) Type 2 diabetes mellitus: Code(s): E11.9 - Type 2 diabetes mellitus without complications Status: Chronic Plan post op for left foot ulcer debridement. continue wound care. de escalate abx tomorrow. hba1c 7.7. pt does not want to change any insulin for now. counseled. he wants to f/u with PCP will coordinate for discharge with surgeon, could likely go home tomorrow on PO abx barring any new abnormals full code. Subjective Date/time seen: 03/22/23 18:48 Interval history: NAOE. pt's partner is present. he is happy with the care and has no concerns even when solicited. he denies pain Review of Systems Review of Systems: All systems reviewed & are unremarkable except as noted in HPI and below Exam Const: General: comfortable Neck: Neck: supple Resp: Effort & Inspection: normal respiratory effort Auscultation: clear to auscultation bilaterally Cardio: Rate: regular rate Rhythm: regular rhythm Heart sounds: no gallops, no murmurs and no rubs GI: GI Palp: Yes Soft to palpation Extrem: General: no edema Other: left foot dressing C/D/I Objective Data Vital Signs Vital Signs: Vital Signs - 24 hr 03/21/23 21:51 03/21/23 21:59 03/21/23 20:00 Temperature 97.6 F Pulse Rate 100 82 Respiratory Rate 16 Blood Pressure 144/86 H Pulse Oximetry 99 Oxygen Delivery Room Air Oxygen Flow Rate 03/22/23 06:00 03/22/23 08:00 03/22/23 14:00 Temperature 97.1 F L 97.0 F L Pulse Rate 76 71 Respiratory Rate 16 16 Blood Pressure 123/87 125/88 Pulse Oximetry 100 100 Oxygen Delivery Room Air Oxygen Flow Rate 03/22/23 15:10 03/22/23 16:25 03/22/23 16:40 Temperature 97.8 F 97.6 F Pulse Rate 73 72 80 Respiratory Rate 16 12 16 Blood Pressure 131/86 85/66 L 100/62 Pulse Oximetry 96 99 99 Oxygen Delivery Room Air Simple Face Mask Simple Face Mask Oxygen Flow Rate 8 8 03/22/23 16:50 03/22/23 17:05 03/22/23 17:15 Temperature 97.0 F L Pulse Rate 77 73 74 Respiratory Rate 15 15 15 Blood Pressure 95/63 L 102/66 109/72 Pulse Oximetry 94 94 93 Oxygen Delivery Room Air Room Air Room Air Oxygen Flow Rate Intake/Output Intake/Output: Intake & Output 03/19/23 03/20/23 03/21/23 03/22/23 23:59 23:59 23:59 23:59 Intake Total 50 2440 2300 Output Total 1999 1600 Balance 50 440 700 Meds/Results Medications: Active Medications Generic Name Dose Route Start Last Admin Trade Name Freq PRN Reason Stop Dose Admin Acetaminophen 650 mg 03/21/23 00:58 Acetaminophen 325 Mg Tablet PO Q4H PRN Mild Pain (1-3) or Fever Hydrocodone Bitart/Acetaminophen 1 tab 03/22/23 17:22 Hydrocodone/Acetaminophen (*Crx) 5-325 Mg Tablet PO Q4H PRN Pain Rated 4-6 Hydrocodone Bitart/Acetaminophen 1 tab 03/22/23 17:22 Hydrocodone/Acetaminophen (*Crx) 7.5-325 Mg Tablet PO Q4H PRN Pain Rated 7-10 Dextrose 12.5 gm 03/21/23 00:55 Dextrose 50% 25 Gm/50 Ml Syringe IV PUSH PRN PRN Hypoglycemia Protocol Empagliflozin 25 mg 03/22/23 09:00 03/22/23 09:35 Empagliflozin 25 Mg Tablet PO 25 mg DAILY KEEGAN Administration Enoxaparin Sodium 40 mg 03/22/23 09:00 03/22/23 09:36 Enoxaparin 40 Mg/0.4 Ml Syringe SUB-Q 40 mg DAILY KEEGAN Administration Glucagon 1 mg 03/21/23 00:55 Glucagon For Inj 1 Mg Vial IM PRN PRN Hypoglycemia Protocol Glucose 15 gm 03/21/23 00:55 Glucose Oral Gel 15 Gm Of Glucse In 37.5 Gm Tube PO PRN PRN Hypoglycemia Protocol Hydrochlorothiazide 12.5 mg 03/21/23 17:00 03/22/23 18:16 Hydrochlorothiazide 12.5 Mg Capsule PO 12.5 mg BID S
[2023-03-22 19:53] LABS: Glucose Point of Care 107 mg/dl (65-105)
[2023-03-22] MEDS: INSULIN GLARGINE (*BKC) 100 UNITS/ML 30 UNITS SUB-Q (20:57)
[2023-03-22] MEDS: SIMVASTATIN 20 MG TABLET PO (20:57)
[2023-03-23] VITALS (7 sets, daily range): BP systolic 129–162; BP diastolic 62–96; PULSE 72–89; RESP 14–18; TEMP 35.9–36.8; O2SAT 97–100
[2023-03-23] MEDS: PIPERACILLN/TAZ 3.375GM/NS50ML 3.375 GM/50 ML BAG IVPB ×4 (04:43→21:10)
[2023-03-23 06:39] LABS: Hematocrit 41.3 % (42.0-52.0); Hemoglobin 12.7 g/dL (14.0-18.0); Mean Corpuscular HGB Conc 30.8 g/dl (32-36); Mean Corpuscular Hemoglobin 25.5 pg (26-34); Mean Corpuscular Volume 82.8 fl (80-100); Mean Platelet Volume 10.3 fl (7.4-10.4); Platelet Count Result 290 k/mm3 (150-375); Red Blood Count 4.99 M/mm3 (4.6-6.20); Red Cell Distribution Width 13.9 % (11.5-14.5); White Blood Count 10.2 K/mm3 (4.5-10.0)
[2023-03-23 06:49] LABS: Anion Gap 10 mmol/L (8-16); Blood Urea Nitrogen 17 mg/dL (9-20); Calcium 8.7 mg/dL (8.4-10.2); Carbon Dioxide 25 mmol/L (22-30); Chloride 104 mmol/L (98-107); Estimated CRCL calculation 47 ml/min; Estimated Glomerular Filt Rate 36; Glucose 88 mg/dL (65-110); Potassium 3.6 mmol/L (3.4-5.0); Sodium 139 mmol/L (137-145)
[2023-03-23 08:05] LABS: Glucose Point of Care 100 mg/dl (65-105)
[2023-03-23] MEDS: hydroCHLOROthiazide 12.5 MG CAPSULE PO ×2 (08:42→16:34)
[2023-03-23] MEDS: METOPROLOL TARTRATE 50 MG TAB PO ×2 (08:42→21:09)
[2023-03-23] MEDS: lisinopriL 20 MG TABLET PO ×2 (08:43→16:34)
[2023-03-23] MEDS: PANTOPRAZOLE 40 MG TABLET PO (08:43)
[2023-03-23] MEDS: EMPAGLIFLOZIN 25 MG TABLET PO (08:43)
[2023-03-23] MEDS: SERTRALINE HCL 50 MG TABLET PO (08:43)
[2023-03-23] MEDS: CLINDAMYCIN 600 MG/D5W 50 ML 600 MG/50 ML PIGGYBACK 100 MG IVPB ×2 (08:47→16:27)
[2023-03-23] MEDS: ENOXAPARIN 40 MG/0.4 ML SYRINGE SUB-Q (08:47)
[2023-03-23 11:55] LABS: Glucose Point of Care 229 mg/dl (65-105)
[2023-03-23] MEDS: INSULIN ASPART (*BKC) 100 UNITS/ML SUB-Q ×2 (11:57→21:14)
--- NOTE | 2023-03-23 13:11 | PC.NURSE ---
johann GHOSH from wound changed dressing now, and gave education to as to how to change it when needed.
--- NOTE | 2023-03-23 13:20 | PCWOUND ---
WOCN NOTE Per Surgical PLASTIC TECHNICIAN, applied dressing to left foot and educated spouse on how to do home dressing changes. spouse expressed understanding.
--- NOTE | 2023-03-23 14:31 | PM.PNGS ---
Progress Note: A&P Assessment and Plan (1) Ulcer of left foot: Code(s): L97.529 - Non-pressure chronic ulcer of other part of left foot with unspecified severity Status: Acute Assessment and Plan: S/p excisional debridement of left foot wound yesterday. Wound looks good today with no necrotic tissue or purulent drainage. Will start silver gel and gauze dressing changes daily. Continue IV antibiotics. (2) Cellulitis of foot, left: Code(s): L03.116 - Cellulitis of left lower limb Status: Acute Assessment and Plan: Significantly improved today. Continue IV antibiotics. (3) Type 2 diabetes mellitus: Code(s): E11.9 - Type 2 diabetes mellitus without complications Status: Chronic Assessment and Plan: Management per Hospitalist. (4) [id number] kidney injury: Qualifiers: Acute renal failure type: unspecified Chronic kidney disease stage: stage 3 (moderate) Chronic kidney disease stage 3 subtype: stage 3b (GFR 30-44) Qualified Code(s): N17.9 - Acute kidney failure, unspecified; N18.32 - Chronic kidney disease, stage 3b Code(s): N17.9 - Acute kidney failure, unspecified; N18.9 - Chronic kidney disease, unspecified Status: Acute Plan I have discussed the patient's case and plan of care with Dr. Kuo. Subjective Subjective Date/Time Seen: 03/23/23 14:31 Patient reports: no new complaints, feels better and afebrile Interval history: Postop day 1 and patient reports feeling better today. Denies any pain in his left foot. No other complaints at this time. Exam Narrative: Left foot dressing removed with an open wound from the plantar aspect of the foot extending laterally around to the dorsal foot. There is healthy viable tissue in the wound bed with no purulent drainage or necrotic tissue. Tendon is visible on the lateral aspect of the wound. Surrounding erythema and swelling is much improved since yesterday when I saw the patient prior to surgery. Const: General: no acute distress and awake Objective Data Vital Signs Vital Signs: Vital Signs - 24 hr 03/22/23 15:10 03/22/23 16:25 03/22/23 16:40 Temperature 97.8 F 97.6 F Pulse Rate 73 72 80 Respiratory Rate 16 12 16 Blood Pressure 131/86 85/66 L 100/62 Pulse Oximetry 96 99 99 Oxygen Delivery Room Air Simple Face Mask Simple Face Mask Oxygen Flow Rate 8 8 03/22/23 16:50 03/22/23 17:05 03/22/23 17:15 Temperature 97.0 F L Pulse Rate 77 73 74 Respiratory Rate 15 15 15 Blood Pressure 95/63 L 102/66 109/72 Pulse Oximetry 94 94 93 Oxygen Delivery Room Air Room Air Room Air Oxygen Flow Rate 03/22/23 17:22 03/22/23 17:37 03/22/23 18:07 Temperature 96.7 F L 96.9 F L 97.0 F L Pulse Rate 76 91 75 Respiratory Rate 16 16 16 Blood Pressure 131/80 120/80 130/84 Pulse Oximetry 97 98 95 Oxygen Delivery Oxygen Flow Rate 03/22/23 19:07 03/22/23 20:57 03/22/23 20:00 Temperature 96.9 F L Pulse Rate 76 76 76 Respiratory Rate 16 16 Blood Pressure 135/81 Pulse Oximetry 100 100 Oxygen Delivery Room Air Oxygen Flow Rate 03/23/23 00:00 03/23/23 04:00 03/23/23 08:42 Temperature 98.3 F 96.7 F L Pulse Rate 74 78 78 Respiratory Rate 16 18 Blood Pressure 130/62 129/82 Pulse Oximetry 97 99 Oxygen Delivery Oxygen Flow Rate 03/23/23 08:00 03/23/23 08:00 Temperature 97.1 F L Pulse Rate 87 Respiratory Rate 16 Blood Pressure 131/96 H Pulse Oximetry 100 Oxygen Delivery Room Air Oxygen Flow Rate Intake/Output Intake/Output: Intake & Output 03/20/23 03/21/23 03/22/23 03/23/23 23:59 23:59 23:59 23:59 Intake Total 50 2440 2850 1798 Output Total 1999 1600 800 Balance 50 440 1250 998 Meds/Results Medications: Active Medications Generic Name Dose Route Start Last Admin Trade Name Freq PRN Reason Stop Dose Admin Acetaminophen 650 mg 03/21/23 00:58 Acetaminophen 325 Mg Tablet PO Q4H PRN
[2023-03-23] MEDS: DEXTROSE 5%/0.45% SOD CHL 1,000 ML 75 ML IV CONT (16:26)
[2023-03-23 16:54] LABS: Glucose Point of Care 180 mg/dl (65-105)
--- NOTE | 2023-03-23 18:00 | PM.IMPN ---
Progress Note: A&P Assessment and Plan (1) Hyperlipidemia: Code(s): E78.5 - Hyperlipidemia, unspecified Status: Acute (2) Ulcer of left foot: Code(s): L97.529 - Non-pressure chronic ulcer of other part of left foot with unspecified severity Status: Acute Plan POD #1. continue wound care. likely home tomorrow with PO abx. will consult with surgery leukocytosis again today. check procalcitonin tomorrow ckd stable. dc clindamycin. cont vanc and zosyn. re-assess again tomorrow full code stable. Subjective Date/time seen: 03/23/23 18:00 Interval history: NAOE. pt is in good spirit. eating up in chair. denies any complaints, including pain Review of Systems Review of Systems: All systems reviewed & are unremarkable except as noted in HPI and below Exam Const: General: comfortable Eyes: Pupils: Equal, round and reactive pupils present Resp: Effort & Inspection: normal respiratory effort Auscultation: clear to auscultation bilaterally Cardio: Rate: regular rate Rhythm: regular rhythm GI: GI Palp: Yes Soft to palpation Extrem: General: no edema Other: left foot dressings c/d/i Objective Data Vital Signs Vital Signs: Vital Signs - 24 hr 03/22/23 18:07 03/22/23 19:07 03/22/23 20:57 Temperature 97.0 F L 96.9 F L Pulse Rate 75 76 76 Respiratory Rate 16 16 Blood Pressure 130/84 135/81 Pulse Oximetry 95 100 Oxygen Delivery 03/22/23 20:00 03/23/23 00:00 03/23/23 04:00 Temperature 98.3 F 96.7 F L Pulse Rate 76 74 78 Respiratory Rate 16 16 18 Blood Pressure 130/62 129/82 Pulse Oximetry 100 97 99 Oxygen Delivery Room Air 03/23/23 08:42 03/23/23 08:00 03/23/23 08:00 Temperature 97.1 F L Pulse Rate 78 87 Respiratory Rate 16 Blood Pressure 131/96 H Pulse Oximetry 100 Oxygen Delivery Room Air 03/23/23 12:00 03/23/23 15:55 Temperature 97.7 F 97.7 F Pulse Rate 81 72 Respiratory Rate 16 18 Blood Pressure 139/87 Pulse Oximetry 100 98 Oxygen Delivery Intake/Output Intake/Output: Intake & Output 03/20/23 03/21/23 03/22/23 03/23/23 23:59 23:59 23:59 23:59 Intake Total 50 9530 2850 3020 Output Total 1999 1600 800 Balance 50 440 1250 2220 Meds/Results Medications: Active Medications Generic Name Dose Route Start Last Admin Trade Name Freq PRN Reason Stop Dose Admin Acetaminophen 650 mg 03/21/23 00:58 Acetaminophen 325 Mg Tablet PO Q4H PRN Mild Pain (1-3) or Fever Hydrocodone Bitart/Acetaminophen 1 tab 03/22/23 17:22 Hydrocodone/Acetaminophen (*Crx) 5-325 Mg Tablet PO Q4H PRN Pain Rated 4-6 Hydrocodone Bitart/Acetaminophen 1 tab 03/22/23 17:22 Hydrocodone/Acetaminophen (*Crx) 7.5-325 Mg Tablet PO Q4H PRN Pain Rated 7-10 Dextrose 12.5 gm 03/21/23 00:55 Dextrose 50% 25 Gm/50 Ml Syringe IV PUSH PRN PRN Hypoglycemia Protocol Empagliflozin 25 mg 03/22/23 09:00 03/23/23 08:43 Empagliflozin 25 Mg Tablet PO 25 mg DAILY KEEGAN Administration Enoxaparin Sodium 40 mg 03/22/23 09:00 03/23/23 08:47 Enoxaparin 40 Mg/0.4 Ml Syringe SUB-Q 40 mg DAILY KEEGAN Administration Glucagon 1 mg 03/21/23 00:55 Glucagon For Inj 1 Mg Vial IM PRN PRN Hypoglycemia Protocol Glucose 15 gm 03/21/23 00:55 Glucose Oral Gel 15 Gm Of Glucse In 37.5 Gm Tube PO PRN PRN Hypoglycemia Protocol Hydrochlorothiazide 12.5 mg 03/21/23 17:00 03/23/23 16:34 Hydrochlorothiazide 12.5 Mg Capsule PO 12.5 mg BID KEEGAN Administration Dextrose 1,000 mls @ 100 mls/hr 03/21/23 00:55 Dextrose 5% 1,000 Ml IVPB PRN PRN Hypoglycemia Protocol Vancomycin HCl 1,500 mg in 500 mls @ 250 mls/hr 03/22/23 00:00 03/23/23 04:12 Vancomycin 1,500 Mg/D5w 500 Ml IVPB Infused Q24H KEEGAN Infusion Clindamycin Phosphate 600 mg in 50 mls @ 100 mls/hr 03/21/23 16:00 03/23/23 16:27 Clindamycin 600 Mg/D5w 50 Ml
[2023-03-23] MEDS: SIMVASTATIN 20 MG TABLET PO (21:09)
[2023-03-23] MEDS: INSULIN GLARGINE (*BKC) 100 UNITS/ML 30 UNITS SUB-Q (21:13)
[2023-03-23 22:35] LABS: Glucose Point of Care 257 mg/dl (65-105)
[2023-03-24] VITALS: BP 114/77; PULSE 78; RESP 16; TEMP 36.4; O2SAT 98
[2023-03-24] LABS: Vancomycin Trough 18.4 ug/mL (10.0-20.0)
[2023-03-24 04:00] VITALS: BP 121/85; PULSE 79; RESP 16; TEMP 36; O2SAT 99
[2023-03-24] MEDS: PIPERACILLN/TAZ 3.375GM/NS50ML 3.375 GM/50 ML BAG IVPB ×2 (05:20→09:46)
[2023-03-24 06:49] LABS: Basophils Absolute Auto 0.1 K/mm3 (0.0-0.1); Basophils Percent Auto 0.6 % (0.2-1.2); Eosinophils Absolute Auto 0.2 K/mm3 (0-0.3); Eosinophils Percent Auto 2.5 % (0-4.4); Hematocrit 43.3 % (42.0-52.0); Hemoglobin 13.5 g/dL (14.0-18.0); Immature Granulocyte Absolute 0.03 K/mm3 (0.00-0.031); Immature Granulocyte Percent A 0.3 % (0-0.5); Lymphocytes Absolute Auto 1.76 K/mm3 (0.9-3.2); Lymphocytes Percent Auto 20.3 % (18.3-44.2); Mean Corpuscular HGB Conc 31.2 g/dl (32-36); Mean Corpuscular Hemoglobin 25.6 pg (26-34); Mean Corpuscular Volume 82.2 fl (80-100); Mean Platelet Volume 9.8 fl (7.4-10.4); Monocytes Absolute Auto 0.7 K/mm3 (0.1-0.6); Monocytes Percent Auto 8.4 % (2.6-8.5); Neutrophils Absolute Auto 5.9 K/mm3 (1.3-6.7); Neutrophils Percent Auto 67.9 % (45.5-73.1); Platelet Count Result 299 k/mm3 (150-375); Red Blood Count 5.27 M/mm3 (4.6-6.20); Red Cell Distribution Width 13.9 % (11.5-14.5); White Blood Count 8.7 K/mm3 (4.5-10.0)
[2023-03-24 07:05] LABS: Anion Gap 12 mmol/L (8-16); Blood Urea Nitrogen 14 mg/dL (9-20); Calcium 8.9 mg/dL (8.4-10.2); Carbon Dioxide 23 mmol/L (22-30); Chloride 104 mmol/L (98-107); Estimated CRCL calculation 47 ml/min; Estimated Glomerular Filt Rate 36; Glucose 159 mg/dL (65-110); Potassium 3.6 mmol/L (3.4-5.0); Sodium 139 mmol/L (137-145)
[2023-03-24 08:00] VITALS: BP 126/85; PULSE 77; RESP 16; TEMP 36.1; O2SAT 96
[2023-03-24 08:13] LABS: Glucose Point of Care 139 mg/dl (65-105)
[2023-03-24 08:47] VITALS: PULSE 77
[2023-03-24] MEDS: lisinopriL 20 MG TABLET PO ×2 (08:47→16:53)
[2023-03-24] MEDS: EMPAGLIFLOZIN 25 MG TABLET PO (08:47)
[2023-03-24] MEDS: PANTOPRAZOLE 40 MG TABLET PO (08:47)
[2023-03-24] MEDS: SERTRALINE HCL 50 MG TABLET PO (08:47)
[2023-03-24] MEDS: hydroCHLOROthiazide 12.5 MG CAPSULE PO ×2 (08:47→16:53)
[2023-03-24] MEDS: METOPROLOL TARTRATE 50 MG TAB PO (08:47)
[2023-03-24 08:56] LABS: Procalcitonin 0.1 ng/mL
--- NOTE | 2023-03-24 10:14 | PM.PNGS ---
Progress Note: A&P Assessment and Plan (1) Ulcer of left foot: Code(s): L97.529 - Non-pressure chronic ulcer of other part of left foot with unspecified severity Status: Acute Assessment and Plan: S/p excisional debridement of left foot wound yesterday. Wound looks good today with no necrotic tissue or purulent drainage. Okay from a surgical standpoint to discharge the patient today. Continue silver gel dressing changes. F/u in 2 weeks. Will speak with wound care to see if he could f/u in the wound clinic. (2) Cellulitis of foot, left: Code(s): L03.116 - Cellulitis of left lower limb Status: Acute Assessment and Plan: Improved. Okay to discharge on oral antibiotics per hospitalist. (3) Type 2 diabetes mellitus: Code(s): E11.9 - Type 2 diabetes mellitus without complications Status: Chronic (4) [id number] kidney injury: Qualifiers: Acute renal failure type: unspecified Chronic kidney disease stage: stage 3 (moderate) Chronic kidney disease stage 3 subtype: stage 3b (GFR 30-44) Qualified Code(s): N17.9 - Acute kidney failure, unspecified; N18.32 - Chronic kidney disease, stage 3b Code(s): N17.9 - Acute kidney failure, unspecified; N18.9 - Chronic kidney disease, unspecified Status: Acute Plan I have discussed the patient's case and plan of care with Dr. Kuo. Subjective Subjective Date/Time Seen: 03/24/23 10:14 Post Op day: 1 (Excisional debridement of left foot wound, I and D left foot abscess) Patient reports: feels better and afebrile Interval history: Patient feels well today. No new complaints. No complaints of his left foot. Dressing has not been changed by nursing yet. Exam Narrative: Left foot dressing removed. Wound appears stable today. Some granulation tissue forming. No necrotic tissue or purulent drainage. Objective Data Vital Signs Vital Signs: Vital Signs - 24 hr 03/23/23 12:00 03/23/23 15:55 03/23/23 20:00 Temperature 97.7 F 97.7 F Pulse Rate 81 72 Respiratory Rate 16 18 Blood Pressure 139/87 Pulse Oximetry 100 98 Oxygen Delivery Room Air 03/23/23 20:00 03/24/23 00:00 03/24/23 04:00 Temperature 97.1 F L 97.6 F 96.8 F L Pulse Rate 89 78 79 Respiratory Rate 14 16 16 Blood Pressure 162/96 H 114/77 121/85 Pulse Oximetry 100 98 99 Oxygen Delivery 03/24/23 08:00 03/24/23 08:47 Temperature 96.9 F L Pulse Rate 77 77 Respiratory Rate 16 Blood Pressure 126/85 Pulse Oximetry 96 Oxygen Delivery Intake/Output Intake/Output: Intake & Output 03/21/23 03/22/23 03/23/23 03/24/23 23:59 23:59 23:59 23:59 Intake Total 2440 2850 3564 512 Output Total 1999 1600 800 Balance 440 1250 2764 512 Meds/Results Medications: Active Medications Generic Name Dose Route Start Last Admin Trade Name Freq PRN Reason Stop Dose Admin Acetaminophen 650 mg 03/21/23 00:58 Acetaminophen 325 Mg Tablet PO Q4H PRN Mild Pain (1-3) or Fever Hydrocodone Bitart/Acetaminophen 1 tab 03/22/23 17:22 Hydrocodone/Acetaminophen (*Crx) 5-325 Mg Tablet PO Q4H PRN Pain Rated 4-6 Hydrocodone Bitart/Acetaminophen 1 tab 03/22/23 17:22 Hydrocodone/Acetaminophen (*Crx) 7.5-325 Mg Tablet PO Q4H PRN Pain Rated 7-10 Dextrose 12.5 gm 03/21/23 00:55 Dextrose 50% 25 Gm/50 Ml Syringe IV PUSH PRN PRN Hypoglycemia Protocol Empagliflozin 25 mg 03/22/23 09:00 03/24/23 08:47 Empagliflozin 25 Mg Tablet PO 25 mg DAILY KEEGAN Administration Enoxaparin Sodium 40 mg 03/22/23 09:00 03/24/23 08:48 Enoxaparin 40 Mg/0.4 Ml Syringe SUB-Q Not Given DAILY KEEGAN Glucagon 1 mg 03/21/23 00:55 Glucagon For Inj 1 Mg Vial IM PRN PRN Hypoglycemia Protocol Glucose 15 gm 03/21/23 00:55 Glucose Oral Gel 15 Gm Of Glucse In 37.5 Gm Tube PO PRN PRN Hypoglycemia Protocol Hydrochlorothiazide 12.5 mg
[2023-03-24 11:42] LABS: Glucose Point of Care 188 mg/dl (65-105)
[2023-03-24] MEDS: levoFLOXacin 750 MG TABLET PO (14:11)
[2023-03-24 14:50] VITALS: BP 129/89; PULSE 73; RESP 18; TEMP 36.1; O2SAT 99
--- NOTE | 2023-03-24 14:51 | PM.DS ---
DS: Admitting Diagnosis Discharge Date 03/24/23 Admitting Diagnosis foot ulcer DS: Discharge Diagnosis Discharge Diagnosis (1) Hyperlipidemia: Code(s): E78.5 - Hyperlipidemia, unspecified Status: Acute (2) Ulcer of left foot: Code(s): L97.529 - Non-pressure chronic ulcer of other part of left foot with unspecified severity Status: Acute (3) Cellulitis of foot, left: Code(s): L03.116 - Cellulitis of left lower limb Status: Acute (4) Type 2 diabetes mellitus: Code(s): E11.9 - Type 2 diabetes mellitus without complications Status: Chronic DS: Summary Hospital Course Hospital Course: 47M w/ PMH diabetes and multiple foot infections presented with an open L foot ulcer. imaging revealed soft tissue infection. debridement completed on 03/22 with good response. he received a few days of clindamycin vancomycin and cefepime, he will be going home on another 10 days of doxy and levofloxacin. will be doing dressings at home and he is going to call to setup follow up with wound clinic. Time Spent with Patient Time attestation: Total time spent providing and/or coordinating discharge services: Exam Const: General: cooperative and no acute distress Resp: Effort & Inspection: normal respiratory effort Auscultation: clear to auscultation bilaterally Cardio: Rate: regular rate Rhythm: regular rhythm Heart sounds: S1 normal heart sound present and S2 normal heart sound present GI: GI Palp: No abdominal tenderness Auscultation: normal bowel sounds DS: Data Data Completed and Pending Labs on day of discharge: Labs from last 24 hours 03/24/23 03/24/23 03/24/23 11:38 07:54 06:34 WBC 8.7 RBC 5.27 Hgb 13.5 L Hct 43.3 MCV 82.2 MCH 25.6 L MCHC 31.2 L RDW 13.9 Plt Count 299 MPV 9.8 Immature Gran % (Auto) 0.3 Neut % (Auto) 67.9 Lymph % (Auto) 20.3 [place] % (Auto) 8.4 Eos % (Auto) 2.5 Baso % (Auto) 0.6 Lymph # (Auto) 1.76 [place] # (Auto) 0.7 H Eos # (Auto) 0.2 Baso # (Auto) 0.1 Abs Immat Gran (auto) 0.03 Absolute Neuts (auto) 5.9 Absolute Nucleated RBC 0.0 Nucleated RBC % 0.0 Sodium 139 Potassium 3.6 Chloride 104 Carbon Dioxide 23 Anion Gap 12 BUN 14 Creatinine 2.00 H Estim Creat Clear Calc 47 Estimated GFR 36 L Glucose 159 H POC Capillary Glucose 188 H 139 H Calcium 8.9 Procalcitonin 0.1 Vancomycin Trough 03/23/23 03/23/23 03/23/23 23:16 21:06 16:40 WBC RBC Hgb Hct MCV MCH MCHC RDW Plt Count MPV Immature Gran % (Auto) Neut % (Auto) Lymph % (Auto) [place] % (Auto) Eos % (Auto) Baso % (Auto) Lymph # (Auto) [place] # (Auto) Eos # (Auto) Baso # (Auto) Abs Immat Gran (auto) Absolute Neuts (auto) Absolute Nucleated RBC Nucleated RBC % Sodium Potassium Chloride Carbon Dioxide Anion Gap BUN Creatinine Estim Creat Clear Calc Estimated GFR Glucose POC Capillary Glucose 257 H 180 H Calcium Procalcitonin Vancomycin Trough 18.4 Preliminary micro results at discharge 03/20/23 22:07 Blood Culture - Preliminary Blood 03/20/23 20:36 Blood Culture - Preliminary Blood Discharge Plan Discharge Attending physician on discharge: Cely Chris Consulting providers: Raul Kuo Discharging Clinician: Cely Chris Patient Disposition: Home, Self-Care Activity: may shower Diet: heart healthy and diabetic Wound Care Instructions: change dressing daily Discharge Instructions: Wound care instructions: Apply silver gel to left foot wound daily and cover with gauze. May wash over wound with mild soap and water. Avoid any pressure to the foot wound with footwear. Discussed wearing postop shoe that you have at home with ambulation. supervisor train operations and complete all antibiotics. Patient Instru
[2023-03-24 17:00] LABS: Glucose Point of Care 161 mg/dl (65-105)
--- NOTE | 2023-03-24 18:10 | PC.NURSE ---
patient d/c all instructions gone over with patient. supplies sent with him. picked up, taken out by wheelchair. IV out. denies any questions regarding d/c instructions.
== END 2023-03-24 18:00 | disposition home or self-care (01) | DRG 380 ==
LOC: ANHED 21:07 → ANH3MEDSUR 03-21 01:15
PROVIDERS: Internal Medicine; Surgery; Admitting Provider Internal Medicine; Emergency Provider Emergency Medicine; PCP Physician Assistant; Visit Provider General Practice
PROC: 0H9NXZZ Drainage of Left Foot Skin, External Approach (ICD-10-PCS; principal; 2023-03-22 15:00)
DX: E11.621 Type 2 diabetes mellitus with foot ulcer (principal); L97.529 Non-pressure chronic ulcer of other part of left foot with unspecified severity; M72.6 Necrotizing fasciitis; N17.9 Acute kidney failure, unspecified; D63.1 Anemia in chronic kidney disease; E11.319 Type 2 diabetes mellitus with unspecified diabetic retinopathy without macular edema; L03.116 Cellulitis of left lower limb; E11.42 Type 2 diabetes mellitus with diabetic polyneuropathy; E11.22 Type 2 diabetes mellitus with diabetic chronic kidney disease; E78.5 Hyperlipidemia, unspecified; E86.0 Dehydration; F31.9 Bipolar disorder, unspecified; I12.9 Hypertensive chronic kidney disease with stage 1 through stage 4 chronic kidney disease, or unspecified chronic kidney disease; K21.9 Gastro-esophageal reflux disease without esophagitis; N18.32 Chronic kidney disease, stage 3b; Z79.4 Long term (current) use of insulin; Z89.421 Acquired absence of other right toe(s); Z91.51 Personal history of suicidal behavior; Z87.891 Personal history of nicotine dependence; Z79.84 Long term (current) use of oral hypoglycemic drugs
CPT/HCPCS: 36415; 71045; 73630; 73700; 80048; 80053; 80202; 81001; 81003; 82565; 82948; 83036; 83605; 83735; 84145; 85025; 85027; 85610; 85652; 85730; 86140; 87040; 93005; 96365; 96366; 96368; 99285; A9270; G0378; G0379; J0692; J1650; J1815; J1836; J2250; J2543; J2704; J3010; J3370; J7030; J7120

== ENCOUNTER 2023-06-16 07:20 | Outpatient (RCR) | payer OTHER, SELFPAY ==
--- NOTE | 2023-04-14 12:10 | P.PNWOUND_ITS ---
Wound Care Note Date/Time: 04/14/23 12:10 History: 47 yo diabetic male presented to the wound clinic for follow up after recent hospitalization. He underwent left foot debridement and drainage of abscess on 03/22/23. He has been continuing local wound care at home with silver gel dres sing changes daily. This is his first wound clinic visit since discharge. Wound width: 4.2cm Wound length: 0.7cm Wound depth: 0.5cm Drainage: serous Surrounding tissue appearance: healthy Tunneling: none Percentage granulation tissue: 100% Assessment and Plan Assessment and plan (1) Ulcer of left foot: Qualifiers: Non-pressure ulcer stage: with fat layer exposed Qualified Code(s): L97.522 - Non-pressure chronic ulcer of other part of left foot with fat layer exposed Code(s): L97.529 - Non-pressure chronic ulcer of other part of left foot with unspecified severity Status: Acute Assessment and Plan: * Continue local wound care with Silver Gel gauze dressing changes daily. Surgical boot for assistance with ambulation and protection from further pressure injuries. 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 Review of Systems Review of Systems: All systems reviewed & are unremarkable except as noted in HPI and below Exam Extrem: Other: Left lateral foot wound healing well. Good granulation tissue and no signs of surrounding cellulitis or abscess.
[2023-04-14 12:24] VITALS: BMI 30.5
--- NOTE | 2023-05-11 16:23 | WPDWOUNDNOTE ---
Wound Care Note Date/Time: 05/11/23 16:23 History: 47 yo diabetic male presented to the wound clinic for follow up after recent hospitalization.? He underwent left foot debridement and drainage of abscess on 03/22/23.? He has been continuing local wound care at home with silver gel dressing changes daily.? This is his second wound clinic visit since discharge. He has been doing well and is tolerating activity and dressing changes. He is continuing to try to control blood sugars. Wound width: 0.6cm Wound length: 3cm Wound depth: 0.5cm Drainage: serous Surrounding tissue appearance: Slightly macerated Percentage granulation tissue: 100% Dressings: Silver gel with Mepilex transfer Assessment and Plan Assessment and plan (1) Ulcer of left foot: Qualifiers: Non-pressure ulcer stage: with fat layer exposed Qualified Code(s): L97.522 - Non-pressure chronic ulcer of other part of left foot with fat layer exposed Code(s): L97.529 - Non-pressure chronic ulcer of other part of left foot with unspecified severity Status: Acute Assessment and Plan: Continue local wound care with Silver Gel with Mepilex transfer dressing changes daily. Surgical boot for assistance with ambulation and protection from further pressure injuries. Patient should continue to heal with local treatment. Will have patient follow up in wound clinic one more time in 4 weeks. 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 Exam Extrem: Other: left lateral foot wound continuing to heal well. No signs of infection.
--- NOTE | 2023-06-16 12:59 | WPDWOUNDNOTE ---
Wound Care Note Date/Time: 06/16/23 12:59 History: 47 yo diabetic male presented to the wound clinic for follow up after hospitalization in 03/31 for foot wound.? He underwent left foot debridement and drainage of abscess on 03/22/23.? He has been continuing local wound care at home with silver gel dressing changes daily.? This is his 3rd wound clinic visit since discharge.? He has been doing well and is tolerating activity and dressing changes.? He is continuing to try to control blood sugars. He continues to wear the surgical shoe and feels this helps with preventing pressure. Wound width: 0.3 Wound length: 0.6 Wound depth: 0.4 Drainage: serous Surrounding tissue appearance: healthy Percentage granulation tissue: 100% Assessment and Plan Assessment and plan (1) Ulcer of left foot: Qualifiers: Non-pressure ulcer stage: with fat layer exposed Qualified Code(s): L97.522 - Non-pressure chronic ulcer of other part of left foot with fat layer exposed Code(s): L97.529 - Non-pressure chronic ulcer of other part of left foot with unspecified severity Status: Acute Assessment and Plan: Will have patient apply Mepilex AG foam daily. Wound continuing to heal well. This should close up completely within the next couple weeks. Patient may follow up as needed. Instructed patient to watch feet very carefully and return with any wound concerns. It would probably be best to be evaluated by [facility] to continue following senior care. (2) Type 2 diabetes mellitus: Qualifiers: Diabetes mellitus terminologist insulin use: with terminologist use Diabetes mellitus complication status: with skin complications Diabetes mellitus complication detail: with foot ulcer Qualified Code(s): E11.621 - Type 2 diabetes mellitus with foot ulcer; L97.509 - Non-pressure chronic ulcer of other part of unspecified foot with unspecified severity; Z79.4 - [employer] (current) use of insulin Code(s): E11.9 - Type 2 diabetes mellitus without complications Status: Chronic Assessment and Plan: Continue current diabetes meds. Exam Extrem: Other: left lateral foot wound continues to heal well. Minimal wound opening at this point. Appears healthy without necrosis or erythema.
== END 2023-07-13 23:59 | disposition home or self-care (01) ==
LOC: ANHWOC 07:20
PROVIDERS: PCP Physician Assistant; Visit Provider Surgery
DX: L97.529 Non-pressure chronic ulcer of other part of left foot with unspecified severity (principal); E11.621 Type 2 diabetes mellitus with foot ulcer
CPT/HCPCS: 99213; G0463

== ENCOUNTER 2023-11-23 07:35 | Emergency (ER) | payer OTHER, SELFPAY ==
--- NOTE | ~2023-11-23 | US_ITS ---
US abdomen limited INDICATION: PROCEDURE: Realtime right upper abdominal ultrasound. COMPARISON: No prior studies for comparison. FINDINGS: The pancreas is normal without focal mass or pancreatic ductal dilation. Liver echotexture is normal without focal mass or intrahepatic biliary dilatation. There is normal directional flow i n the portal vein. The gallbladder is normal without stones, gallbladder wall thickening or pericholecystic fluid. There is a small gallbladder polyp measuring approximately 3 mm. Common bile duct measures 4 mm. No sonog raphic Stiles's sign. IMPRESSION: 1: Gallbladder polyp measuring 3 mm. Reviewed, dictated and finalized at location B.
--- NOTE | ~2023-11-23 | CT_ITS ---
CT of the Abdomen and Pelvis: Indication: Epigastric pain Technique: 2.5 mm axial scans were obtained through the abdomen and pelvis following intravenous adm inistration of 100 cc of Omnipaque 350. Dose reduction technique was used on this scan by utilizing a utomated exposure control and iterative reconstruction technique. The dose-length product (DLP) was 7 35.16 mGy-cm. COMPARISON: 07/26/2021 Findings: Scans through the lung bases are unremarkable. The liver, spleen, pancreas, gallbladder, adrenals and kidneys are within normal limits. No evidence of aortic aneurysm. No lymphadenopathy. No bowel obstruction or bowel wall thickening. There is no evidence to suggest acute appendicitis. Images through the pelvis were performed. Urinary bladder unremarkable. No pelvic mass seen. Small fa t-containing left inguinal hernia noted. No ascites. Impression: No acute abnormality. Small fat-containing left inguinal hernia. Reviewed, dictated and finalized at [facility]. Impression: No acute abnormality. Small fat-containing left inguinal hernia.
--- NOTE | ~2023-11-23 | XR_ITS ---
Portable chest x-ray Comparison: 03/20/2023 Clinical History: Epigastric pain Findings: Lungs are clear, without focal consolidation or pleural effusion. Cardiomediastinal silho uette is stable. Bones and soft tissues are unremarkable. Impression: Normal chest. Reviewed, dictated and finalized at location . Impression: Normal chest.
[2023-11-23 07:27] VITALS: BP 179/94; PULSE 74; RESP 18; TEMP 36.4; O2SAT 96
--- NOTE | 2023-11-23 07:36 | ECG_ITS ---
Test Date: 2023-11-23 07:51:35 Measurements Intervals [place] Rate: 62 P: 16 MT: 147 QRS: -34 QRSD: 110 T: -10 QT: 431 QTc: 440 Interpretive Statements SINUS RHYTHM LEFT AXIS DEVIATION INCOMPLETE RIGHT BUNDLE BRANCH BLOCK BORDERLINE ST-T WAVE ABNORMALITY- ANT/INF LEADS BORDERLINE ECG No previous ECG available for comparison Electronically Signed On 11-23-2023 17:18:46 CDT by Radhames Frank D.O.
[2023-11-23] MEDS: SODIUM CHLORIDE 0.9% IV 3,000 ML 999 ML IV CONT (07:55)
[2023-11-23] MEDS: ONDANSETRON INJ 4 MG/2 ML VIAL IV PUSH (07:55)
[2023-11-23] MEDS: PANTOPRAZOLE SODIUM IV 40 MG VIAL 80 MG IV PUSH (07:55)
[2023-11-23 08:00] VITALS: BP 112/77; PULSE 66; RESP 20; O2SAT 98
[2023-11-23 08:04] LABS: Basophils Absolute Auto 0.1 K/mm3 (0.0-0.1); Basophils Percent Auto 0.5 % (0.2-1.2); Eosinophils Absolute Auto 0.3 K/mm3 (0-0.3); Eosinophils Percent Auto 1.9 % (0-4.4); Hematocrit 48.4 % (42.0-52.0); Hemoglobin 15.4 g/dL (14.0-18.0); Immature Granulocyte Absolute 0.04 K/mm3 (0.00-0.031); Immature Granulocyte Percent A 0.3 % (0-0.5); Lymphocytes Percent Auto 13.3 % (18.3-44.2); Mean Corpuscular HGB Conc 31.8 g/dl (32-36); Mean Corpuscular Hemoglobin 25.9 pg (26-34); Mean Corpuscular Volume 81.5 fl (80-100); Mean Platelet Volume 11.4 fl (7.4-10.4); Monocytes Percent Auto 7.5 % (2.6-8.5); Neutrophils Absolute Auto 10.4 K/mm3 (1.3-6.7); Neutrophils Percent Auto 76.5 % (45.5-73.1); Platelet Count Result 245 k/mm3 (150-375); Red Blood Count 5.94 M/mm3 (4.6-6.20); Red Cell Distribution Width 15.2 % (11.5-14.5); White Blood Count 13.6 K/mm3 (4.5-10.0)
[2023-11-23 08:07] LABS: Alanine Aminotransferase 18 U/L (6-50); Albumin Level 4.8 g/dL (3.5-5.1); Alkaline Phosphatase 135 U/L (38-126); Anion Gap 15 mmol/L (4-12); Aspartate Amino Transferase 25 U/L (17-59); Bilirubin,Total 0.8 mg/dL (0.2-1.3); Blood Urea Nitrogen 32 mg/dL (9-20); Carbon Dioxide 33 mmol/L (22-30); Chloride 91 mmol/L (98-107); Estimated CRCL calculation 40 ml/min; Estimated Glomerular Filt Rate 31; Glucose 350 mg/dL (65-110); Lactic Acid Reflex 3.3 mmol/L (0.7-2.0); Magnesium 2.2 mg/dL (1.6-2.3); Potassium 3.4 mmol/L (3.4-5.0); Sodium 139 mmol/L (137-145)
[2023-11-23 08:17] LABS: Troponin I < 0.012 ng/mL (0.000-0.034)
[2023-11-23 08:26] LABS: Prothrombin Time 13.5 Seconds (11.1-14.7)
[2023-11-23 08:45] LABS: Lipase 6008 U/L (23-300)
[2023-11-23 10:15] VITALS: BP 160/93; PULSE 75; RESP 16; O2SAT 100
[2023-11-23 10:41] LABS: Appearance Urine Clear (Clear); Bilirubin Urine Negative (Negative); Blood Urine Negative (Negative); Color Urine Yellow (Yellow); Glucose Urine UA 3+ mg/dL (Negative); Ketones Urine Trace mg/dL (Negative); Leukocyte Esterase Ur Negative LEU/UL (Negative); Nitrate Urine Negative (Negative); Protein Urine Negative (Negative); Specific Grav Ur 1.027 (1.001-1.035); Urobilinogen Urine 0.2 mg/dL (<2.0)
[2023-11-23 10:51] LABS: Reflex Lactic Acid Yes or No Add Lactic
[2023-11-23 10:59] LABS: Amphetamine Screen Urine Negative (Negative); Barbiturate Screen Urine Negative (Negative); Benzodiazepines Screen Urine Negative (Negative); Cannabinoid Screen Urine Positive (Negative); Cocaine Screen Urine Negative (Negative); Methadone Screen Urine Negative (Negative); Opiate Screen Urine Negative (Negative); Phencyclidine Screen Urine Negative (Negative); Troponin I < 0.012 ng/mL (0.000-0.034)
[2023-11-23 11:15] VITALS: BP 137/86; PULSE 79; RESP 20; O2SAT 96
[2023-11-23 12:15] VITALS: BP 121/85; PULSE 90; RESP 16; O2SAT 96
[2023-11-23 12:36] LABS: Add Urine Microscopic? NO
--- NOTE | 2023-11-23 12:55 | ED.GENADULT ---
HPI - General Adult General Chief complaint: GI Bleed Stated complaint: vomiting blood History of Present Illness HPI narrative: This is a 48-year-old male with hypertension diabetes presenting for possibly vomiting blood. Patient says has been going on for several days. It is associated with a sharp epigastric pain. It is nonradiating, severe in intensity and constant. Patient has never had pain like this in the past. Patient denies fevers chills chest pain or difficulty breathing. Patient denies alcohol use. No history of GI bleeds or liver cirrhosis. Related Data Home Medications Medication Instructions Recorded Confirmed insulin glargine 100 unit/mL 30 unit subcut QHS 04/16/21 04/14/23 subcutaneous cartridge empagliflozin 25 mg tablet 25 mg PO DAILY 03/21/23 04/14/23 (Jardiance) lisinopril 20 1 tablet PO BID 03/21/23 04/14/23 mg-hydrochlorothiazide 12.5 mg tablet metoprolol tartrate 50 mg tablet 50 mg PO BID 03/21/23 04/14/23 omeprazole 20 mg capsule,delayed 20 mg PO DAILY 03/21/23 04/14/23 release sertraline 50 mg tablet 50 mg PO DAILY 03/21/23 04/14/23 simvastatin 20 mg tablet 20 mg PO HS 03/21/23 04/14/23 Allergies Allergy/AdvReac Type Severity Reaction Status Date / Time bee stings Allergy Unknown Unknown Uncoded 03/20/23 20:32 PENDING SALE TO [facility] Past Medical History Medical History Bipolar disorder Chronic anemia Chronic kidney disease, stage 3 Baseline creatinine appears to be between 1.60 and 1.80. Diabetic gastroparesis Diabetic retinopathy GERD (gastroesophageal reflux disease) History of GI bleed Secondary to esophagitis noted on EGD in November 2017. History of osteomyelitis Right 5th toe, status post amputation. History of suicide attempt Hypertension Surgical History Surgical History Status post amputation of toe of right foot Right 5th toe amputation including the distal metatarsal in 2017. Open amputation of right 5th metatarsal in July 2019 for osteomyelitis of right 5th metatarsal stump. Family History Family History Other Adopted Social History Social History Social History: The patient lives in [place] with his and their 3 children, 1 biological daughter and 2 step children. 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 He is a previous smoker, both cigars and cigarettes. He does smoke cannabis. He denies alcohol use. , Pari, is his surrogate decision maker and he wishes to be a full code. Smoking packs per day: 0.5 Smoking cigarettes per day: 10.0 Years smoked: 20 Smoking pack-years: 10.00 Smoking status: Former smoker Second hand tobacco smoke exposure: Yes Additional smoking assessment comments: Alcohol intake: never Substance use: current Substance use type: marijuana Last use: 03/20/23 Lack of Transportation: No Lack of Food: Never True Current Housing: I Have Housing Concerned About Future Housing: No Difficulty Paying Gas/Electric Bills: No Difficulty Paying for Meds: No Currently Unemployed: YES Education: Associate Degree Difficulty w/ Childcare or Family Care: No Gender identity (if verbalized by the patient): Male Spiritual care concerns: No Agree to blood products: Yes Exam Narrative: APPEARANCE: Patient appears uncomfortable Head: atraumatic. EYES: EOMI, NOSE: Atraumatic NECK: Trachea midline RESPIRATORY: No increased rate of breathing clear to auscultation CARDIOVASCULAR: RRR, ABDOMINAL: Tenderness palpation in the epigastric area, no guarding rebound MUSCULOSKELETAl: No obvious deformities NEURO: Alert. Moving 4/4 extremities SKIN:: Warm, dry. Normal color
[2023-11-23 13:18] VITALS: BP 139/93; PULSE 96; RESP 17; O2SAT 95
== END 2023-11-23 13:19 | disposition left against medical advice (07) ==
PROVIDERS: Emergency Provider Emergency Medicine; PCP Physician Assistant
DX: K85.90 Acute pancreatitis without necrosis or infection, unspecified (principal); E11.22 Type 2 diabetes mellitus with diabetic chronic kidney disease; I12.9 Hypertensive chronic kidney disease with stage 1 through stage 4 chronic kidney disease, or unspecified chronic kidney disease; N18.30 Chronic kidney disease, stage 3 unspecified; E11.43 Type 2 diabetes mellitus with diabetic autonomic (poly)neuropathy; K31.84 Gastroparesis; E11.319 Type 2 diabetes mellitus with unspecified diabetic retinopathy without macular edema; D64.9 Anemia, unspecified; K21.9 Gastro-esophageal reflux disease without esophagitis; F31.9 Bipolar disorder, unspecified; Z87.891 Personal history of nicotine dependence; Z89.431 Acquired absence of right foot; Z79.4 Long term (current) use of insulin; Z79.84 Long term (current) use of oral hypoglycemic drugs; Z79.899 Other long term (current) drug therapy; I45.10 Unspecified right bundle-branch block; R94.31 Abnormal electrocardiogram [ECG] [EKG]; K82.4 Cholesterolosis of gallbladder; K44.9 Diaphragmatic hernia without obstruction or gangrene
CPT/HCPCS: 36415; 71045; 74177; 76705; 80053; 80307; 81003; 83605; 83690; 83735; 84484; 85025; 85610; 85730; 86850; 86900; 86901; 93005; 96361; 96374; 96375; 99284; J2405; J2470; J7030; Q9967

== ENCOUNTER 2023-12-08 20:36 | Inpatient (IN) | payer OTHER, SELFPAY ==
--- NOTE | ~2023-12-08 | XR_ITS ---
AP, oblique, and lateral views of the left fourth and fifth toes CLINICAL HISTORY: Ulcer, wound, diabetes FINDINGS: There are erosive changes at the base of the fifth proximal phalanx, and possibly minimal e rosions at the fifth metatarsal head. Osseous structures and fourth toe are intact, though there is d iffuse soft tissue swelling of the fourth toe. IMPRESSION: Suspected osteomyelitis/septic arthritis centered at the fifth MTP joint. Marked soft tissue swelling of the fourth toe. Reviewed, dictated and finalized at location M.
[2023-12-08 21:21] VITALS: BP 84/52; PULSE 103; RESP 20; TEMP 37.2; O2SAT 99
[2023-12-08 22:03] VITALS: BP 92/52; PULSE 97; O2SAT 100
[2023-12-08 22:29] VITALS: BP 102/68; PULSE 94; RESP 15; O2SAT 97
[2023-12-08 22:31] LABS: Glucose Point of Care 449 mg/dl (65-105)
--- NOTE | 2023-12-08 23:14 | ED.GENADULT ---
HPI - General Adult General Chief complaint: Unspecified Stated complaint: kidneypain, toe infection Time Seen by Provider: 12/08/23 22:40 Source: patient Mode of arrival: ambulatory Limitations: no limitations History of Present Illness HPI narrative: Patient is a 48-year-old male who presents the ED with report of wound to his left 4th toe. Patient reports he is a poorly controlled diabetic. He is on Jardiance and insulin therapy for his diabetes. He does not check his blood sugar regularly. He reports over the last 2 days, he has noticed a blister-like wound to his left 4th toe plantar surface. His has been dressing and caring for the wound, but states today the toe became diffusely swollen, erythematous, malodorous. Blood glucose upon arrival to the ED today is 449. Patient denies feeling ill otherwise, denies fevers. Denies significant pain in the foot, does report neuropathy changes. Hx of R 5th toe and metatarsal amputation several years ago, performed by Dr. Yost with podiatry and Dr. Dumont. Related Data Home Medications Medication Instructions Recorded Confirmed insulin glargine 100 unit/mL 30 unit subcut QHS 04/16/21 04/14/23 subcutaneous cartridge empagliflozin 25 mg tablet 25 mg PO DAILY 03/21/23 04/14/23 (Jardiance) lisinopril 20 1 tablet PO BID 03/21/23 04/14/23 mg-hydrochlorothiazide 12.5 mg tablet metoprolol tartrate 50 mg tablet 50 mg PO BID 03/21/23 04/14/23 omeprazole 20 mg capsule,delayed 20 mg PO DAILY 03/21/23 04/14/23 release sertraline 50 mg tablet 50 mg PO DAILY 03/21/23 04/14/23 simvastatin 20 mg tablet 20 mg PO HS 03/21/23 04/14/23 Allergies Allergy/AdvReac Type Severity Reaction Status Date / Time bee stings Allergy Unknown Unknown Uncoded 12/08/23 21:31 Review of Systems Review of Systems: CONSTITUTIONAL: Denies fever, chills, or sweats. GASTROINTESTINAL: Denies abdominal pain, nausea, vomiting, or diarrhea. GENITOURINARY: Denies dysuria or hematuria. MUSCULOSKELETAL: See HPI. NEUROLOGIC: Denies headache, dizziness, numbness, or weakness. All systems reviewed & are unremarkable except as noted in HPI and below PMFSH Past Medical History Medical History Bipolar disorder Chronic anemia Chronic kidney disease, stage 3 Baseline creatinine appears to be between 1.60 and 1.80. Diabetic gastroparesis Diabetic retinopathy GERD (gastroesophageal reflux disease) History of GI bleed Secondary to esophagitis noted on EGD in November 2017. History of osteomyelitis Right 5th toe, status post amputation. History of suicide attempt Hypertension Surgical History Surgical History Status post amputation of toe of right foot Right 5th toe amputation including the distal metatarsal in 2017. Open amputation of right 5th metatarsal in July 2019 for osteomyelitis of right 5th metatarsal stump. Family History Family History Other Adopted Social History Social History Social History: The patient lives in [place] with his and their 3 children, 1 biological daughter and 2 step children. 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 He is a previous smoker, both cigars and cigarettes. He does smoke cannabis. He denies alcohol use. , Pari, is his surrogate decision maker and he wishes to be a full code. Smoking packs per day: 0.5 Smoking cigarettes per day: 10.0 Years smoked: 20 Smoking pack-years: 10.00 Smoking status: Former smoker Second hand tobacco smoke exposure: Yes Additional smoking assessment comments: Alcohol intake: never Substance use: current Substance use type: amenajuan
[2023-12-08] MEDS: SODIUM CHLORIDE 0.9% IV 1,000 ML 999 ML IV CONT (23:16)
[2023-12-08 23:25] LABS: Basophils Percent Auto 0.3 % (0.2-1.2); Eosinophils Percent Auto 0.1 % (0-4.4); Hematocrit 38.9 % (42.0-52.0); Hemoglobin 12.8 g/dL (14.0-18.0); Immature Granulocyte Absolute 0.05 K/mm3 (0.00-0.031); Immature Granulocyte Percent A 0.4 % (0-0.5); Lymphocytes Absolute Auto 1.29 K/mm3 (0.9-3.2); Lymphocytes Percent Auto 10.7 % (18.3-44.2); Mean Corpuscular HGB Conc 32.9 g/dl (32-36); Mean Corpuscular Hemoglobin 26.6 pg (26-34); Mean Corpuscular Volume 80.7 fl (80-100); Mean Platelet Volume 11.1 fl (7.4-10.4); Monocytes Absolute Auto 1.1 K/mm3 (0.1-0.6); Monocytes Percent Auto 9.4 % (2.6-8.5); Neutrophils Absolute Auto 9.5 K/mm3 (1.3-6.7); Neutrophils Percent Auto 79.1 % (45.5-73.1); Platelet Count Result 246 k/mm3 (150-375); Red Blood Count 4.82 M/mm3 (4.6-6.20); Red Cell Distribution Width 14.6 % (11.5-14.5)
[2023-12-08 23:36] LABS: Partial Thromboplastin Time 29.3 Seconds (22.3-36.8); Prothrombin Time 14.2 Seconds (11.1-14.7)
[2023-12-08 23:47] LABS: Lactic Acid Reflex 1.5 mmol/L (0.7-2.0)
[2023-12-08 23:48] LABS: Erythrocyte Sedimentation Rate 26 mm/hr (0-20)
[2023-12-08 23:54] LABS: Alanine Aminotransferase 11 U/L (6-50); Albumin Level 4.1 g/dL (3.5-5.1); Alkaline Phosphatase 100 U/L (38-126); Anion Gap 13 mmol/L (4-12); Aspartate Amino Transferase 18 U/L (17-59); Bilirubin,Total 0.7 mg/dL (0.2-1.3); Blood Urea Nitrogen 37 mg/dL (9-20); Calcium 8.5 mg/dL (8.4-10.2); Carbon Dioxide 26 mmol/L (22-30); Chloride 86 mmol/L (98-107); Estimated CRCL calculation 39 ml/min; Estimated Glomerular Filt Rate 26; Glucose 504 mg/dL (65-110); Potassium 4.5 mmol/L (3.4-5.0); Sodium 125 mmol/L (137-145)
[2023-12-09] VITALS (14 sets, daily range): BP systolic 103–149; BP diastolic 55–80; PULSE 65–87; RESP 11–32; TEMP 35.8–37.2; O2SAT 97–100; BMI 26.8
[2023-12-09 00:37] LABS: Hemoglobin A1C 10.5 % (<5.7)
[2023-12-09] MEDS: INSULIN HUMAN REGULAR (*BKC) 100 UNITS/ML 8 UNITS IV PUSH (01:06)
[2023-12-09] MEDS: SODIUM CHLORIDE 0.9% IV 1,000 ML 999 ML IV CONT (01:07)
[2023-12-09] MEDS: CEFEPIME 2 GM/NS 50 ML 2 GM/50 ML BAG IVPB (01:07)
[2023-12-09] MEDS: metroNIDAZOLE 500 MG/ISO 100ML 500 MG/100 ML BAG 100 MG IVPB ×3 (01:21→17:04)
[2023-12-09 01:30] LABS: Add Urine Microscopic? NO; Appearance Urine Clear (Clear); Bilirubin Urine Negative (Negative); Blood Urine Negative (Negative); Color Urine Yellow (Yellow); Glucose Urine UA 3+ mg/dL (Negative); Ketones Urine Negative (Negative); Leukocyte Esterase Ur Negative LEU/UL (Negative); Nitrate Urine Negative (Negative); Protein Urine Negative (Negative); Urobilinogen Urine 0.2 mg/dL (<2.0); pH Urine 5.5 (5.0-9.0)
[2023-12-09 01:46] LABS: CRP 17.5 mg/dL (<1.0)
[2023-12-09] MEDS: VANCOMYCIN 1,250 MG/NS 250 ML 1,250 MG/250 ML BAG 166.67 MG IVPB ×2 (02:26→04:22)
[2023-12-09 02:48] LABS: Glucose Point of Care 179 mg/dl (65-105)
--- NOTE | 2023-12-09 03:51 | ADMGEN ---
This patient, Dejan Sevilla, was admitted to [facility] Surg Room 317-01. Patient/family oriented to hospital policies and general routines including ID bracelet, bed and alarms, visiting hours, pain management, procedures, bathroom and other care routines, personal items, smoking policy, room service/diet, and visiting hours. Information on how to activate the Rapid Response Team has been discussed. Patient/Family are encouraged to report perceived risks to care and to ask questions if they do not understand what they are told or what they should do.
--- NOTE | 2023-12-09 04:07 | PM.IMHP ---
H&P: HPI History of Present Illness Date/Time: 12/09/23 04:07 Chief Complaint: Redness and swelling to toe Narrative: 48-year-old male with past medical history of uncontrolled diabetes, diabetic peripheral neuropathy, prior history of osteomyelitis requiring toe amputation on opposite foot, chronic kidney disease stage 3 diabetic gastroparesis and bipolar disorder who presented to the ER from home due to infected left 4th toe. The patient reports he has chronic neuropathy and does not have much sensation to his feet. He did not notice anything wrong with his foot until 2 days ago at which time he developed what he thought was a blister to his left toe on the plantar surface. His had been providing dressing changes and care for the wound but on the 1st the toe became acutely more swollen, erythematous and had a foul drainage. He denied having any fevers or chills. He denies any known injury to his foot. He admits that he does not check his blood glucoses like he should and his glucoses on arrival to the ER were 449. He denied any polydipsia or polyphagia. He denied any dysuria. Initial x-ray of his toe in ER was performed with no evidence of gas at the time my evaluation but possible area of lucency at metatarsophalangeal joint Official radiologic interpretation pending. Patient been placed on antibiotic coverage per antibiotic stewardship guidelines with cefepime, Flagyl and vancomycin. At the time of my evaluation the patient's foot patient had tissue consider a for wet gangrene and drainage of bloody somewhat purulence material from tissue proximal to the nail bed. Review of Systems Review of Systems: 12 systems were reviewed with pertinent positives and negatives per HPI. Except as documented in the HPI, all other systems were reviewed and are negative. [facility] Past Medical History Medical History (Updated 12/09/23 @ 04:23 by Martha Scott DO) Bipolar disorder Chronic anemia Chronic kidney disease, stage 3 Baseline creatinine appears to be between 1.8-2 Diabetic gastroparesis Diabetic retinopathy Diastolic dysfunction Echocardiogram 07/2021: Grade 1 diastolic dysfunction, no intracardiac shunt with agitated saline, EF 65-70, no valvular abnormalities, mild concentric increased left ventricular wall thickness GERD (gastroesophageal reflux disease) History of GI bleed Secondary to esophagitis noted on EGD in November 2017. History of osteomyelitis Right 5th toe, status post amputation. History of suicide attempt Hypertension Surgical History Surgical History Status post amputation of toe of right foot Right 5th toe amputation including the distal metatarsal in 2018. Open amputation of right 5th metatarsal in July 2019 for osteomyelitis of right 5th metatarsal stump. Family History Family History Other Adopted Social History Social History (Updated 12/09/23 @ 04:13 by Martha Scott DO) Social History: The patient lives in [place] with his and their 3 children, 1 biological daughter and 2 step children. 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 He is a previous smoker, both cigars and cigarettes. He does smoke cannabis. He denies alcohol use. , Pari, is his surrogate decision maker and he wishes to be a full code. Smoking packs per day: 0.5 Smoking cigarettes per day: 10.0 Years smoked: 20 Smoking pack-years: 10.00 Smoking status: Former smoker Second hand tobacco smoke exposure: Yes Additional smoking assessment comments: Alcohol intake: never Substance use: current Substance use type: marijuana Last use: 03/20/23 Do You Feel Safe in your Home?: Yes Lack of Transportation: No Lack of Food: Never True Current Housing: [facility]
[2023-12-09] MEDS: SODIUM CHLORIDE 0.9% IV 1,000 ML 100 ML IV CONT (04:22)
[2023-12-09 05:53] LABS: Glucose Point of Care 246 mg/dl (65-105)
[2023-12-09 06:39] LABS: Anion Gap 10 mmol/L (4-12); Blood Urea Nitrogen 34 mg/dL (9-20); Calcium 7.7 mg/dL (8.4-10.2); Carbon Dioxide 22 mmol/L (22-30); Chloride 101 mmol/L (98-107); Estimated CRCL calculation 39 ml/min; Estimated Glomerular Filt Rate 29; Glucose 255 mg/dL (65-110); Potassium 3.6 mmol/L (3.4-5.0); Sodium 133 mmol/L (137-145)
[2023-12-09] MEDS: INSULIN ASPART (*BKC) 100 UNITS/ML SUB-Q ×3 (07:12→21:09)
[2023-12-09 07:48] LABS: Glucose Point of Care 239 mg/dl (65-105)
[2023-12-09] MEDS: PANTOPRAZOLE 40 MG TABLET PO (09:00)
[2023-12-09] MEDS: SERTRALINE HCL 50 MG TABLET 100 MG PO (09:00)
[2023-12-09] MEDS: METOPROLOL TARTRATE 50 MG TAB PO ×2 (09:00→21:07)
[2023-12-09 11:25] LABS: Glucose Point of Care 199 mg/dl (65-105)
--- NOTE | 2023-12-09 12:15 | WPDANESEPPF ---
Anes - Initial Pre Proc Eval Procedure: Operation Date: 12/09/23 13:00 Proposed Procedures p Open Amputation Left Fourth Toe - Kai Dumont MD Date/Time: 12/09/23 12:15 Surgeon: Martha Scott DO Pre Op Diagnosis: kidneypain, toe infection Patient Data Age: 48 Gender: M Height: 1.83 m Weight: 91.6 kg Last Vital Signs Temp 36.2 C L 12/09/23 06:00 Pulse 81 12/09/23 06:00 Resp 14 12/09/23 06:00 BP 116/71 12/09/23 06:00 Pulse Ox 99 12/09/23 06:00 O2 Del Method Room Air 12/08/23 21:21 Allergies Allergy/AdvReac Type Severity Reaction Status Date / Time bee stings Allergy Unknown Unknown Uncoded 12/08/23 21:31 Home Medications Medication Instructions Recorded Confirmed Type insulin glargine 100 unit/mL 30 unit subcut QHS 04/16/21 12/09/23 History subcutaneous cartridge empagliflozin 25 mg tablet 25 mg PO DAILY 03/21/23 12/09/23 History (Jardiance) lisinopril 20 1 tablet PO DAILY 03/21/23 12/09/23 History mg-hydrochlorothiazide 12.5 mg tablet metoprolol tartrate 50 mg tablet 50 mg PO BID 03/21/23 12/09/23 History omeprazole 20 mg capsule,delayed 20 mg PO DAILY 03/21/23 12/09/23 History release sertraline 50 mg tablet 100 mg PO DAILY 03/21/23 12/09/23 History simvastatin 20 mg tablet 20 mg PO HS 03/21/23 12/09/23 History Laboratory Tests 12/08/23 12/08/23 12/09/23 22:28 23:17 01:23 WBC 12.0 H K/mm3 (4.5-10.0) RBC 4.82 M/mm3 (4.6-6.20) Hgb 12.8 L g/dL (14.0-18.0) Hct 38.9 L % (42.0-52.0) MCV 80.7 fl (80-100) MCH 26.6 pg (26-34) MCHC 32.9 g/dl (32-36) RDW 14.6 H % (11.5-14.5) Plt Count 246 k/mm3 (150-375) MPV 11.1 H fl (7.4-10.4) Immature Gran % (Auto) 0.4 % (0-0.5) Neut % (Auto) 79.1 H % (45.5-73.1) Lymph % (Auto) 10.7 L % (18.3-44.2) [place] % (Auto) 9.4 H % (2.6-8.5) Eos % (Auto) 0.1 % (0-4.4) Baso % (Auto) 0.3 % (0.2-1.2) Lymph # (Auto) 1.29 K/mm3 (0.9-3.2) [place] # (Auto) 1.1 H K/mm3 (0.1-0.6) Eos # (Auto) 0.0 K/mm3 (0-0.3) Baso # (Auto) 0.0 K/mm3 (0.0-0.1) Abs Immat Gran (auto) 0.05 H K/mm3 (0.00-0.031) Absolute Neuts (auto) 9.5 H K/mm3 (1.3-6.7) Absolute Nucleated RBC 0.000 K/mm3 (0.0-0.012) Nucleated RBC % 0.0 % (0.0-0.2) ESR 26 H mm/hr (0-20) PT 14.2 Seconds (11.1-14.7) INR 1.0 APTT 29.3 Seconds (22.3-36.8) Sodium 125 L mmol/L (137-145) Potassium 4.5 mmol/L (3.4-5.0) Chloride 86 L mmol/L (98-107) Carbon Dioxide 26 mmol/L (22-30) Anion Gap 13 H mmol/L (4-12) BUN 37 H mg/dL (9-20) Creatinine 2.70 H mg/dL (0.7-1.3) Estim Creat Clear Calc 39 ml/min Estimated GFR 26 L (59 - ) Glucose 504 H* mg/dL (65-110) POC Capillary Glucose 449 H mg/dl (65-105) Hemoglobin A1c 10.5 H % (<5.7) Lactic Acid 1.5 mmol/L (0.7-2.0) Calcium 8.5 mg/dL (8.4-10.2) Total Bilirubin 0.7 mg/dL (0.2-1.3) AST 18 U/L (17-59) ALT 11 U/L (6-50) Alkaline Phosphatase 100 U/L (38-126) C-Reactive Protein 17.5 H mg/dL (<1.0) Total Protein 7.0 g/dL (6.3-8.2) Albumin 4.1 g/dL (3.5-5.1) Urine Color Yellow (Yellow) Urine Appearance Clear (Clear) Urine pH 5.5 (5.0-9.0) Ur Specific [place] 1.020 (1.001-1.035) Urine Protein Negative mg/dL (Negative) Urine Glucose (UA) 3+ H mg/dL (Negative) Urine Ketones Negative mg/dL (Negative) Ur Blood (Man) Negative (Negative) Urine Nitrate Negative (Negative) Urine Bilirub
--- NOTE | 2023-12-09 12:16 | PM.CNGS ---
Assessment and Plan Assessment and plan (1) Diabetic foot infection: Code(s): E11.628 - Type 2 diabetes mellitus with other skin complications; L08.9 - Local infection of the skin and subcutaneous tissue, unspecified Status: Acute Assessment and Plan: Severe infection left 4th toe with necrosis. No osteomyelitis by plain films. I do not feel the 4th toe can be saved. I discussed this with the patient and we will go ahead with left 4th toe open amputation in the operating room today. This is likely the source of his infection and sepsis and contributing to his hyperglycemia. I discussed the procedure with him thoroughly. All questions were answered. He agrees to proceed. (2) Type 2 diabetes mellitus with hyperglycemia, with long-term current use of insulin: Code(s): E11.65 - Type 2 diabetes mellitus with hyperglycemia; Z79.4 - [facility] (current) use of insulin Status: Acute (3) Acute kidney injury superimposed on stage 3b chronic kidney disease: Code(s): N17.9 - Acute kidney failure, unspecified; N18.32 - Chronic kidney disease, stage 3b Status: Acute (4) Abnormal findings on diagnostic imaging of musculoskeletal system: Code(s): R93.7 - Abnormal findings on diagnostic imaging of other parts of musculoskeletal system Status: Acute Assessment and Plan: Plain films of the left foot suggest osteomyelitis of the 5th metatarsophalangeal joint. Clinically, there is no evidence of infection associated with the 5th toe or the MTP joint. For this reason, we will proceed only with the 4th toe amputation as discussed above. Patient was made aware of the abnormality on plain x-rays with the 5th MTP joint and that should evidence of infection developed, we may later need to surgically address this. No plans to do so at this time. History of Present Illness Consult details Consult date: 12/09/23 Requesting physician: Maria A Stinson PA-C Narrative: Patient is a 48-year-old diabetic man who is known to me from previous diabetic foot infections. He had a right 5th toe amputation in 2017 at [facility]. He subsequently came here in July of 2019 and the 5th metatarsal had osteomyelitis. I performed an open amputation including the 5th metatarsal. This went on to heal. He was here again last March and had an infection but no evidence of osteomyelitis on his left 5th metatarsal. This was due to infection and abscess of and malperforans ulcer. This was debrided by Dr. Kuo and went on to heal. Patient came into the emergency room last night. He was found to have blood sugars out of control with a blood sugar of 500. His hemoglobin A1c was over 10. He had his left 4th toe with necrosis and serious swelling and infection with a foul odor. Plain films of the foot did not show osteomyelitis of the 4th toe or metatarsal. It did suggest osteomyelitis of the 5th metatarsophalangeal joint. Patient is seen in consultation regarding his diabetic foot infection and possible surgical intervention. Review of Systems Review of Systems: All systems reviewed & are unremarkable except as noted in HPI and below (HPI) Constitutional: Constitutional: Denies chills and Denies fever(s) Cardiovascular: Cardiovascular: Denies chest pain, Denies diaphoresis, Denies dyspnea and Denies paroxysmal nocturnal dyspnea Respiratory: Respiratory: Denies chest congestion, Denies cough and Denies dyspnea Musculoskeletal: Musculoskeletal: Reports as per HPI Integumentary/Breasts: Skin/Breast: Denies lesions and Denies rash Endocrine: Comments: Patient thinks he for got to take his insulin yesterday and the day before as the cause of his hyperglycemia. Hematologic/Lymphatic: Hematologic/Lymphatic: Denies easy bruising PMFSH Past Medical History Medical History Bipolar disorder Chronic anemia Chronic kidney disease, stage 3
--- NOTE | 2023-12-09 12:40 | WPDHPUPDATE1 ---
History and Physical Update Update Date/Time: 12/09/23 12:40 History and Physical has been reviewed, including an updated exam of the patient. There are NO changes in the patient's condition. Risks, benefits, and alternatives have been discussed and questions answered. Patient agrees to proceed with procedure.
--- NOTE | 2023-12-09 13:26 | PC.NURSE ---
To OR per stretcher at 1145, IV saline locked. Report given to AUGIE Vang.
[2023-12-09] MEDS: LACTATED RINGERS 1,000 ML 30 ML IV CONT (13:30)
[2023-12-09] MEDS: CEFEPIME 1 GM/NS 50 ML 1 GM/50 ML BAG IVPB (14:03)
--- NOTE | 2023-12-09 14:20 | W.PM.PROC2 ---
Procedure Note - Detailed Date of Procedure 12/09/23 Pre-op Diagnosis Diabetic foot infection, 4th toe left foot Post-op Diagnosis Same Procedure Performed Open amputation left 4th toe Surgeon Kai Dumont MD Windows Application Developer Viraj JUAN Anesthesia General (LMA) Indications Patient has longstanding diabetes and takes insulin. He has had toe amputation on the right foot and recurrent osteomyelitis of the 5th metatarsal phalangeal joint. He has also had debridement of a left 5th toe diabetic foot infection. He is admitted now with swollen, foul-smelling, infection with necrosis of the left 4th toe. Plain films do not show signs of osteomyelitis of the 4th toe. He is taken to surgery for open amputation of the left 4th toe. Findings Infection with necrosis primarily D IP joint left 4th toe but extending the length of the toe and onto the distal forefoot Description of Procedure Patient was taken to surgery and anesthesia was introduced. The left foot was prepped and draped. The other toes were protected and a v-shaped incision was made on the dorsum at the base of the left 4th toe. This incision was extended posteriorly and the V shape was also maintained on the plantar aspect of the base of the 4th toe. We dissected through the soft tissue to the proximal metatarsal. I then used bone cutters to divide the proximal metatarsal. Cautery was used for hemostasis. A rongeur was then used to remove additional 1st metatarsal so that it was not protruding up into the wound. The metatarsal was a smooth surface. Additional cautery was used and hemostasis was achieved. We then packed the wound with 1 in iodoform Nu Gauze and covered it with fluffs. 4 in Harris wrap was then used to secure the dressing by wrapping the foot and ankle. Patient was awakened and taken to recovery in good condition. Sponge and needle counts were correct x2. Estimated Blood Loss -5 Urine Output 0 Drains No Packing Yes (1 in iodoform Nu Gauze) Pathology Yes (Left 4th toe) Complications None Condition Stable Disposition PACU [facility] Billing Surgery - Charge Forward: Surgery Billing (Open amputation left 4th toe)
[2023-12-09 14:38] LABS: Glucose Point of Care 191 mg/dl (65-105)
--- NOTE | 2023-12-09 15:38 | PC.NURSE ---
Returned from OR per stretcher at 1530 . Report received from AUGIE Menendez.
[2023-12-09 16:33] LABS: Glucose Point of Care 222 mg/dl (65-105)
[2023-12-09 19:45] LABS: Glucose Point of Care 323 mg/dl (65-105)
[2023-12-09] MEDS: SIMVASTATIN 20 MG TABLET PO (21:07)
[2023-12-09] MEDS: SENNA/DOCUSATE SODIUM TABLET 2 TAB PO (21:07)
[2023-12-09] MEDS: INSULIN GLARGINE (*BKC) 100 UNITS/ML 30 UNITS SUB-Q (21:09)
[2023-12-10] VITALS (7 sets, daily range): BP systolic 119–147; BP diastolic 76–87; PULSE 75–94; RESP 16; TEMP 36.1–36.6; O2SAT 99–100
[2023-12-10] MEDS: CEFEPIME 1 GM/NS 50 ML 1 GM/50 ML BAG IVPB ×2 (01:26→12:44)
[2023-12-10] MEDS: metroNIDAZOLE 500 MG/ISO 100ML 500 MG/100 ML BAG 100 MG IVPB ×3 (02:15→17:19)
[2023-12-10 05:43] LABS: Basophils Absolute Auto 0.1 K/mm3 (0.0-0.1); Basophils Percent Auto 0.6 % (0.2-1.2); Eosinophils Absolute Auto 0.1 K/mm3 (0-0.3); Hematocrit 39.8 % (42.0-52.0); Hemoglobin 12.4 g/dL (14.0-18.0); Immature Granulocyte Absolute 0.02 K/mm3 (0.00-0.031); Immature Granulocyte Percent A 0.3 % (0-0.5); Lymphocytes Absolute Auto 1.48 K/mm3 (0.9-3.2); Lymphocytes Percent Auto 19.1 % (18.3-44.2); Mean Corpuscular HGB Conc 31.2 g/dl (32-36); Mean Corpuscular Hemoglobin 26.1 pg (26-34); Mean Corpuscular Volume 83.6 fl (80-100); Mean Platelet Volume 10.6 fl (7.4-10.4); Monocytes Absolute Auto 0.7 K/mm3 (0.1-0.6); Monocytes Percent Auto 8.9 % (2.6-8.5); Neutrophils Absolute Auto 5.4 K/mm3 (1.3-6.7); Neutrophils Percent Auto 70.1 % (45.5-73.1); Platelet Count Result 231 k/mm3 (150-375); Red Blood Count 4.76 M/mm3 (4.6-6.20); Red Cell Distribution Width 14.6 % (11.5-14.5); White Blood Count 7.7 K/mm3 (4.5-10.0)
[2023-12-10 05:56] LABS: Anion Gap 12 mmol/L (4-12); Blood Urea Nitrogen 25 mg/dL (9-20); Calcium 8.7 mg/dL (8.4-10.2); Carbon Dioxide 25 mmol/L (22-30); Chloride 103 mmol/L (98-107); Estimated CRCL calculation 48 ml/min; Estimated Glomerular Filt Rate 38; Glucose 124 mg/dL (65-110); Magnesium 2.3 mg/dL (1.6-2.3); Potassium 4.2 mmol/L (3.4-5.0); Sodium 140 mmol/L (137-145)
--- NOTE | 2023-12-10 08:22 | P.PNAN_ITS ---
Anes - Prog Note Post-Op Date/Time: 12/10/23 08:22 Cardiovascular status: normal Respiratory status: normal Airway patency: baseline Mental status: baseline Post-Op hydration status: normal Vital Signs: Last Vital Signs Temp 36.6 C 12/10/23 05:47 Pulse 81 12/10/23 05:47 Resp 16 12/10/23 05:47 BP 119/76 12/10/23 05:47 Pulse Ox 99 12/10/23 05:47 O2 Del Method Room Air 12/09/23 20:00 O2 Flow Rate 10 12/09/23 14:39 Pain Score (VAS): 2 I/O: Intake & Output 12/09/23 12/10/23 12/10/23 23:59 07:59 15:59 Intake Total 722 390 Balance 722 390 Laboratory Tests 12/10/23 05:21 12/10/23 05:21 12/09/23 12/09/23 12/09/23 11:19 14:35 16:30 WBC RBC Hgb Hct MCV MCH MCHC RDW Plt Count MPV Immature Gran % (Auto) Neut % (Auto) Lymph % (Auto) [place] % (Auto) Eos % (Auto) Baso % (Auto) Lymph # (Auto) [place] # (Auto) Eos # (Auto) Baso # (Auto) Abs Immat Gran (auto) Absolute Neuts (auto) Absolute Nucleated RBC Nucleated RBC % Sodium Potassium Chloride Carbon Dioxide Anion Gap BUN Creatinine Estim Creat Clear Calc Estimated GFR Glucose POC Capillary Glucose 199 H 191 H 222 H Calcium Magnesium 12/09/23 12/10/23 19:40 05:21 WBC 7.7 RBC 4.76 Hgb 12.4 L Hct 39.8 L MCV 83.6 MCH 26.1 MCHC 31.2 L RDW 14.6 H Plt Count 231 MPV 10.6 H Immature Gran % (Auto) 0.3 Neut % (Auto) 70.1 Lymph % (Auto) 19.1 [place] % (Auto) 8.9 H Eos % (Auto) 1.0 Baso % (Auto) 0.6 Lymph # (Auto) 1.48 [place] # (Auto) 0.7 H Eos # (Auto) 0.1 Baso # (Auto) 0.1 Abs Immat Gran (auto) 0.02 Absolute Neuts (auto) 5.4 Absolute Nucleated RBC 0.000 Nucleated RBC % 0.0 Sodium 140 Potassium 4.2 Chloride 103 Carbon Dioxide 25 Anion Gap 12 BUN 25 H Creatinine 1.90 H Estim Creat Clear Calc 48 Estimated GFR 38 L Glucose 124 H POC Capillary Glucose 323 H Calcium 8.7 Magnesium 2.3 Microbiology 12/08/23 23:17 Blood Blood Culture - Preliminary 12/08/23 23:17 Blood Blood Culture - Preliminary Post-procedural complaints: none Patient Feedback: Patient satisfied with anesthetic care.
[2023-12-10 08:25] LABS: Glucose Point of Care 137 mg/dl (65-105)
[2023-12-10] MEDS: VANCOMYCIN 1,500 MG/NS 500 ML 1,500 MG/500 ML BAG 250 MG IVPB (10:12)
[2023-12-10] MEDS: METOPROLOL TARTRATE 50 MG TAB PO ×2 (10:13→20:34)
[2023-12-10] MEDS: ENOXAPARIN 30 MG/0.3 ML SYRINGE SUB-Q (10:14)
[2023-12-10] MEDS: PANTOPRAZOLE 40 MG TABLET PO (10:14)
[2023-12-10] MEDS: SERTRALINE HCL 50 MG TABLET 100 MG PO (10:14)
[2023-12-10 11:25] LABS: Glucose Point of Care 299 mg/dl (65-105)
--- NOTE | 2023-12-10 12:06 | PM.PNGS ---
Progress Note: A&P Assessment and Plan (1) Diabetic foot infection: Code(s): E11.628 - Type 2 diabetes mellitus with other skin complications; L08.9 - Local infection of the skin and subcutaneous tissue, unspecified Status: Acute Assessment and Plan: open amputation site looks good, still some mild bloody oozing and wound was repacked. Redressed with 4x4s and Harris wrap as well. Toe-touch weight-bearing only and up just to the bathroom for now. Keep foot elevated in bed and while sitting. Improving with lower white blood cell count and improvement in [place]. Blood sugars still too high. Subjective Subjective Date/Time Seen: 12/10/23 12:06 Post Op day: 1 Patient reports: no new complaints, feels better, tolerating a regular diet and afebrile Exam Const: General: comfortable, alert and awake Extrem: Left lower extremity: foot ( openamputation site looks good, healing nicely. foot erythema decreased) Details: tenderness ( minimal -has neuropathy) Objective Data Vital Signs Vital Signs: Vital Signs - 24 hr 12/09/23 12:33 12/09/23 14:24 12/09/23 14:39 Temperature 37.2 C 36.1 C L Pulse Rate 65 78 83 Respiratory Rate 18 32 H 17 Blood Pressure 123/78 113/61 103/55 L Pulse Oximetry 99 100 100 Oxygen Delivery Room Air Simple Face Mask Simple Face Mask Oxygen Flow Rate 10 10 12/09/23 14:54 12/09/23 15:09 12/09/23 15:24 Temperature Pulse Rate 75 76 78 Respiratory Rate 11 L 11 L 17 Blood Pressure 127/79 123/80 123/76 Pulse Oximetry 97 99 98 Oxygen Delivery Room Air Room Air Room Air Oxygen Flow Rate 12/09/23 15:38 12/09/23 16:17 12/09/23 17:47 Temperature 35.8 C L 35.9 C L 36.2 C L Pulse Rate 79 71 87 Respiratory Rate 17 17 17 Blood Pressure 142/74 H 126/75 119/70 Pulse Oximetry 100 100 99 Oxygen Delivery Oxygen Flow Rate 12/09/23 21:07 12/09/23 21:37 12/09/23 20:00 Temperature 36.4 C Pulse Rate 86 80 Respiratory Rate 16 Blood Pressure 149/80 H Pulse Oximetry 99 Oxygen Delivery Room Air Oxygen Flow Rate 12/10/23 01:47 08/03/24 05:47 12/10/23 10:13 Temperature 36.6 C 36.6 C Pulse Rate 81 81 76 Respiratory Rate 16 16 Blood Pressure 140/82 119/76 Pulse Oximetry 99 99 Oxygen Delivery Oxygen Flow Rate 12/10/23 09:47 Temperature 36.2 C L Pulse Rate 94 Respiratory Rate 16 Blood Pressure 147/85 H Pulse Oximetry 100 Oxygen Delivery Oxygen Flow Rate Intake/Output Intake/Output: Intake & Output 12/07/23 12/08/23 12/09/23 12/10/23 23:59 23:59 23:59 23:59 Intake Total 3622 972 Output Total 0 Balance 3622 972 Meds/Results Medications: Active Medications Generic Name Dose Route Start Last Admin Trade Name Freq PRN Reason Stop Dose Admin Acetaminophen 500 mg 12/09/23 16:02 Acetaminophen 500 Mg Tablet PO Q6H PRN Pain Rated 1-3 Hydrocodone Bitart/Acetaminophen 1 tab 12/09/23 16:02 Hydrocodone/Acetaminophen (*Crx) 5-325 Mg Tablet PO Q4H PRN Pain Rated 7-10 Dextrose 12.5 gm 12/09/23 00:32 Dextrose 50% 25 Gm/50 Ml Syringe IV PUSH PRN PRN Hypoglycemia Protocol Enoxaparin Sodium 30 mg 12/09/23 09:00 12/10/23 10:14 Enoxaparin 30 Mg/0.3 Ml Syringe SUB-Q 30 mg DAILY KEEGAN Administration Glucagon 1 mg 12/09/23 00:32 Glucagon For Inj 1 Mg Vial IM PRN PRN Hypoglycemia Protocol Glucose 15 gm 12/09/23 00:32 Glucose Oral Gel 15 Gm Of Glucse In 37.5 Gm Tube PO PRN PRN Hypoglycemia Protocol Dextrose 1,000 mls @ 100 mls/hr 12/09/23 00:32 Dextrose 5% 1,000 Ml IVPB PRN PRN Hypoglycemia Protocol Metronidazole 500 mg in 100 mls @ 100 mls/hr 12/09/23 10:00 12/10/23 10:15 Flagyl 500 Mg/Iso Soln 100 Ml IVPB 100 mls/hr Q8H KEEGAN Administration Cefepime HCl 1 gm in 50 mls @ 100 mls/hr 12/09/23 13:00 12/10/23 01:56 Maxipime 1 Gm/Ns 50 Ml IVPB Infused Q12H KEEGAN Infusion Vancomycin HCl 1
[2023-12-10] MEDS: INSULIN ASPART (*BKC) 100 UNITS/ML SUB-Q ×4 (12:42→20:35)
--- NOTE | 2023-12-10 16:26 | PC.NURSE ---
On 12/10/23, the PAID SEARCH ANALYST, Sonia, provided care and completed [facility] patient. I have reviewed the PAID SEARCH ANALYST's documentation and agree with the findings.
[2023-12-10 16:28] LABS: Glucose Point of Care 282 mg/dl (65-105)
--- NOTE | 2023-12-10 17:15 | PM.IMPN ---
Progress Note: A&P Assessment and Plan (1) Diabetic foot infection: Code(s): E11.628 - Type 2 diabetes mellitus with other skin complications; L08.9 - Local infection of the skin and subcutaneous tissue, unspecified Status: Acute (2) Type 2 diabetes mellitus with hyperglycemia, with long-term current use of insulin: Code(s): E11.65 - Type 2 diabetes mellitus with hyperglycemia; Z79.4 - termite control representative (current) use of insulin Status: Acute (3) Acute kidney injury superimposed on stage 3b chronic kidney disease: Code(s): N17.9 - Acute kidney failure, unspecified; N18.32 - Chronic kidney disease, stage 3b Status: Acute (4) Sepsis: Qualifiers: Sepsis acute organ dysfunction status: unspecified Sepsis type: sepsis due to unspecified organism Qualified Code(s): A41.9 - Sepsis, unspecified organism Code(s): A41.9 - Sepsis, unspecified organism Status: Acute (5) Uncontrolled diabetes mellitus: Qualifiers: Diabetes mellitus type: type 2 Glycemic state: with hyperglycemia Qualified Code(s): E11.65 - Type 2 diabetes mellitus with hyperglycemia Status: Acute (6) Cellulitis of fourth toe of left foot: Code(s): L03.032 - Cellulitis of left toe Status: Acute (7) Pseudohyponatremia: Code(s): R79.89 - Other specified abnormal findings of blood chemistry Status: Acute Plan H&P via Martha Scott MD on 12/09/23 8-year-old male with past medical history of uncontrolled diabetes, diabetic peripheral neuropathy, prior history of osteomyelitis requiring toe amputation on opposite foot, chronic kidney disease stage 3 diabetic gastroparesis and bipolar disorder who presented to the ER from home due to infected left 4th toe. The patient reports he has chronic neuropathy and does not have much sensation to his feet. He did not notice anything wrong with his foot until 2 days ago at which time he developed what he thought was a blister to his left toe on the plantar surface. His had been providing dressing changes and care for the wound but on the 1st the toe became acutely more swollen, erythematous and had a foul drainage. He denied having any fevers or chills. He denies any known injury to his foot. He admits that he does not check his blood glucoses like he should and his glucoses on arrival to the ER were 449. He denied any polydipsia or polyphagia. He denied any dysuria. Initial x-ray of his toe in ER was performed with no evidence of gas at the time my evaluation but possible area of lucency at metatarsophalangeal joint Official radiologic interpretation pending. Patient been placed on antibiotic coverage per antibiotic stewardship guidelines with cefepime, Flagyl and vancomycin. At the time of my evaluation the patient's foot patient had tissue consider a for wet gangrene and drainage of bloody somewhat purulence material from tissue proximal to the nail bed. Plan: Patient meets SIRS criteria with tachycardia, leukocytosis in the setting of acute diabetic foot infection. Patient may have early sepsis but tachycardia has already resolved with volume resuscitation. Blood cultures have been obtained and are pending. Will consult General surgery for evaluation of possible need for wound debridement. Patient will be made NPO until evaluated by surgery. Will repeat CBC tomorrow. Patient does have history of noncompliance with medical regimen and not check his Accu-Cheks at home. A1c is elevated above 10. His glucoses on arrival to the ER were elevated to the 400s and or up to 504 on CMP. Patient received 2 L of fluid and 8 units of regular insulin IV push. Repeat echo 79. Patient did have associated pseudo hyponatremia with corrected sodium her to normal range. Will repeat electrolyte panel in a.m.. Will resume home Lantus. Jardiance will be placed on hold the short term given likely dehydration and depletion with acute kidney injury. Patient have ac
[2023-12-10 20:29] LABS: Glucose Point of Care 254 mg/dl (65-105)
[2023-12-10] MEDS: SENNA/DOCUSATE SODIUM TABLET 2 TAB PO (20:34)
[2023-12-10] MEDS: SIMVASTATIN 20 MG TABLET PO (20:34)
[2023-12-10] MEDS: INSULIN GLARGINE (*BKC) 100 UNITS/ML 30 UNITS SUB-Q (20:35)
[2023-12-11] MEDS: CEFEPIME 1 GM/NS 50 ML 1 GM/50 ML BAG IVPB (00:42)
[2023-12-11] MEDS: metroNIDAZOLE 500 MG/ISO 100ML 500 MG/100 ML BAG 100 MG IVPB (02:07)
[2023-12-11 05:00] VITALS: BP 119/82; PULSE 108; RESP 16; TEMP 36.6; O2SAT 100
[2023-12-11 07:11] LABS: Hematocrit 41.6 % (42.0-52.0); Mean Corpuscular HGB Conc 31.3 g/dl (32-36); Mean Corpuscular Hemoglobin 25.9 pg (26-34); Mean Platelet Volume 10.4 fl (7.4-10.4); Platelet Count Result 251 k/mm3 (150-375); Red Blood Count 5.01 M/mm3 (4.6-6.20); Red Cell Distribution Width 14.6 % (11.5-14.5); White Blood Count 7.3 K/mm3 (4.5-10.0)
[2023-12-11 07:23] LABS: Anion Gap 7 mmol/L (4-12); Blood Urea Nitrogen 19 mg/dL (9-20); Calcium 8.9 mg/dL (8.4-10.2); Carbon Dioxide 27 mmol/L (22-30); Chloride 105 mmol/L (98-107); Estimated CRCL calculation 54 ml/min; Estimated Glomerular Filt Rate 44; Glucose 189 mg/dL (65-110); Magnesium 1.9 mg/dL (1.6-2.3); Sodium 139 mmol/L (137-145)
[2023-12-11 07:28] LABS: Vancomycin Trough 15.2 ug/mL (10.0-20.0)
[2023-12-11 07:36] LABS: Glucose Point of Care 197 mg/dl (65-105)
[2023-12-11] MEDS: INSULIN ASPART (*BKC) 100 UNITS/ML SUB-Q (09:18)
[2023-12-11] MEDS: VANCOMYCIN 1,500 MG/NS 500 ML 1,500 MG/500 ML BAG 200 MG IVPB (09:19)
[2023-12-11] MEDS: SERTRALINE HCL 50 MG TABLET 100 MG PO (09:19)
[2023-12-11] MEDS: ENOXAPARIN 30 MG/0.3 ML SYRINGE SUB-Q (09:19)
[2023-12-11] MEDS: PANTOPRAZOLE 40 MG TABLET PO (09:19)
[2023-12-11] MEDS: METOPROLOL TARTRATE 50 MG TAB PO (09:19)
[2023-12-11] MEDS: ONDANSETRON INJ 4 MG/2 ML VIAL IV PUSH (09:26)
--- NOTE | 2023-12-11 10:38 | PM.PNGS ---
Progress Note: A&P Assessment and Plan (1) Diabetic foot infection: Code(s): E11.628 - Type 2 diabetes mellitus with other skin complications; L08.9 - Local infection of the skin and subcutaneous tissue, unspecified Status: Acute Assessment and Plan: Greatly improved. Okay to discharge from surgical standpoint. I will write a prescription for clindamycin. He is doing well. I will see him in 2-3 weeks. (2) History of amputation of lesser toe of left foot: Code(s): Z89.422 - Acquired absence of other left toe(s) Status: Acute Assessment and Plan: He has a cane at home. He will do silver gel dressings with a small amount of iodoform Nu gauze in the wound. The wound will be covered by 4x4s and wrapped with Harris wrap. I discussed this with the patient and his as well as his nurse. Subjective Subjective Date/Time Seen: 12/11/23 10:38 Post Op day: 2 Patient reports: no new complaints, feels better, bowel movement and afebrile Interval history: Patient very much would like to go home. was present and I was able to discuss dressing changes at home with both of them. Exam Extrem: Left lower extremity: foot (Amputation site looks good, no bleeding, healthy granulation tissue) Details: no tenderness, no unusual warmth and no crepitus Objective Data Vital Signs Vital Signs: Vital Signs - 24 hr 12/10/23 13:47 12/10/23 20:34 12/10/23 20:37 Temperature 36.1 C L 36.6 C Pulse Rate 75 87 87 Respiratory Rate 16 16 Blood Pressure 137/87 136/78 Pulse Oximetry 100 100 Oxygen Delivery 12/10/23 20:00 12/11/23 05:00 Temperature 36.6 C Pulse Rate 108 H Respiratory Rate 16 Blood Pressure 119/82 Pulse Oximetry 100 Oxygen Delivery Room Air Intake/Output Intake/Output: Intake & Output 12/08/23 12/09/23 12/10/23 12/11/23 23:59 23:59 23:59 23:59 Intake Total 3622 2982 1050 Output Total 0 Balance 3622 2982 1050 Meds/Results Medications: Active Medications Generic Name Dose Route Start Last Admin Trade Name Freq PRN Reason Stop Dose Admin Acetaminophen 500 mg 12/09/23 16:02 Acetaminophen 500 Mg Tablet PO Q6H PRN Pain Rated 1-3 Hydrocodone Bitart/Acetaminophen 1 tab 12/09/23 16:02 Hydrocodone/Acetaminophen (*Crx) 5-325 Mg Tablet PO Q4H PRN Pain Rated 7-10 Dextrose 12.5 gm 12/09/23 00:32 Dextrose 50% 25 Gm/50 Ml Syringe IV PUSH PRN PRN Hypoglycemia Protocol Enoxaparin Sodium 30 mg 12/09/23 09:00 12/11/23 09:19 Enoxaparin 30 Mg/0.3 Ml Syringe SUB-Q 30 mg DAILY KEEGAN Administration Glucagon 1 mg 12/09/23 00:32 Glucagon For Inj 1 Mg Vial IM PRN PRN Hypoglycemia Protocol Glucose 15 gm 12/09/23 00:32 Glucose Oral Gel 15 Gm Of Glucse In 37.5 Gm Tube PO PRN PRN Hypoglycemia Protocol Dextrose 1,000 mls @ 100 mls/hr 12/09/23 00:32 Dextrose 5% 1,000 Ml IVPB PRN PRN Hypoglycemia Protocol Metronidazole 500 mg in 100 mls @ 100 mls/hr 12/09/23 10:00 12/11/23 03:05 Flagyl 500 Mg/Iso Soln 100 Ml IVPB Infused Q8H KEEGAN Infusion Cefepime HCl 1 gm in 50 mls @ 100 mls/hr 12/09/23 13:00 12/11/23 01:10 Maxipime 1 Gm/Ns 50 Ml IVPB Infused Q12H KEEGAN Infusion Vancomycin HCl 1,500 mg in 500 mls @ 250 mls/hr 12/10/23 08:00 12/11/23 09:19 Vancomycin 1,500 Mg/Ns 500 Ml IVPB 200 mls/hr Q24H KEEGAN Administration Insulin Aspart 3 - 6 units 12/09/23 17:05 12/11/23 09:17 Insulin Aspart (*Bkc) 100 Units/Ml SUB-Q Not Given [facility] Protocol Insulin Aspart 1 - 3 units 12/09/23 21:00 12/10/23 20:35 Insulin Aspart (*Bkc) 100 Units/Ml SUB-Q 2 units HS KEEGAN Administration Protocol Insulin Aspart 5 units 12/10/23 17:00 12/11/23 09:18 Insulin Aspart (*Bkc) 100 Units/Ml 0.05 units/kg (5 units) 5 units SUB-Q Administration [facility] Insulin Glargine 30 units 12/09/23 21:00 12/10/23 20
--- NOTE | 2023-12-11 11:11 | PM.DS ---
DS: Admitting Diagnosis Discharge Date December 11, 2023 Admitting Diagnosis Diabetic foot infection DS: Discharge Diagnosis Discharge Diagnosis (1) History of amputation of lesser toe of left foot: Code(s): Z89.422 - Acquired absence of other left toe(s) Status: Acute (2) Diabetic foot infection: Code(s): E11.628 - Type 2 diabetes mellitus with other skin complications; L08.9 - Local infection of the skin and subcutaneous tissue, unspecified Status: Acute (3) Type 2 diabetes mellitus with hyperglycemia, with long-term current use of insulin: Code(s): E11.65 - Type 2 diabetes mellitus with hyperglycemia; Z79.4 - nursing home (current) use of insulin Status: Acute (4) Acute kidney injury superimposed on stage 3b chronic kidney disease: Code(s): N17.9 - Acute kidney failure, unspecified; N18.32 - Chronic kidney disease, stage 3b Status: Acute (5) Sepsis: Qualifiers: Sepsis acute organ dysfunction status: unspecified Sepsis type: sepsis due to unspecified organism Qualified Code(s): A41.9 - Sepsis, unspecified organism Code(s): A41.9 - Sepsis, unspecified organism Status: Acute (6) Uncontrolled diabetes mellitus: Qualifiers: Diabetes mellitus type: type 2 Glycemic state: with hyperglycemia Qualified Code(s): E11.65 - Type 2 diabetes mellitus with hyperglycemia Status: Acute (7) Pseudohyponatremia: Code(s): R79.89 - Other specified abnormal findings of blood chemistry Status: Acute (8) Hyperlipidemia: Code(s): E78.5 - Hyperlipidemia, unspecified Status: Acute DS: Summary Hospital Course Hospital Course: H&P via Martha Scott MD on 12/09/23 8-year-old male with past medical history of uncontrolled diabetes, diabetic peripheral neuropathy, prior history of osteomyelitis requiring toe amputation on opposite foot, chronic kidney disease stage 3 diabetic gastroparesis and bipolar disorder who presented to the ER from home due to infected left 4th toe. The patient reports he has chronic neuropathy and does not have much sensation to his feet. He did not notice anything wrong with his foot until 2 days ago at which time he developed what he thought was a blister to his left toe on the plantar surface. His had been providing dressing changes and care for the wound but on the 1st the toe became acutely more swollen, erythematous and had a foul drainage. He denied having any fevers or chills. He denies any known injury to his foot. He admits that he does not check his blood glucoses like he should and his glucoses on arrival to the ER were 449. He denied any polydipsia or polyphagia. He denied any dysuria. Initial x-ray of his toe in ER was performed with no evidence of gas at the time my evaluation but possible area of lucency at metatarsophalangeal joint Official radiologic interpretation pending. Patient been placed on antibiotic coverage per antibiotic stewardship guidelines with cefepime, Flagyl and vancomycin. At the time of my evaluation the patient's foot patient had tissue consider a for wet gangrene and drainage of bloody somewhat purulence material from tissue proximal to the nail bed. Plan: Patient meets SIRS criteria with tachycardia, leukocytosis in the setting of acute diabetic foot infection. Patient may have early sepsis but tachycardia has already resolved with volume resuscitation. Blood cultures have been obtained and are pending. Will consult General surgery for evaluation of possible need for wound debridement. Patient will be made NPO until evaluated by surgery. Will repeat CBC tomorrow. Patient does have history of noncompliance with medical regimen and not check his Accu-Cheks at home. A1c is elevated above 10. His glucoses on arrival to the ER were elevated to the 400s and or up to 504 on CMP. Patient received 2 L of fluid and 8 units of regular insulin IV push. Repeat echo 79. Patient did have
== END 2023-12-11 11:31 | disposition home or self-care (01) | DRG 710 ==
LOC: ANHED 12-09 00:50 → ANH3MEDSUR 12-09 02:35
PROVIDERS: Surgery; Admitting Provider Internal Medicine; Emergency Provider Physician Assistant; PCP Physician Assistant; Visit Provider General Practice
PROC: 0Y6N0ZD Detachment at Left Foot, Partial 4th Ray, Open Approach (ICD-10-PCS; principal; 2023-12-09 13:00)
DX: A41.9 Sepsis, unspecified organism (principal); E11.69 Type 2 diabetes mellitus with other specified complication; M86.9 Osteomyelitis, unspecified; E11.65 Type 2 diabetes mellitus with hyperglycemia; E11.628 Type 2 diabetes mellitus with other skin complications; L03.032 Cellulitis of left toe; N17.9 Acute kidney failure, unspecified; E11.22 Type 2 diabetes mellitus with diabetic chronic kidney disease; E11.43 Type 2 diabetes mellitus with diabetic autonomic (poly)neuropathy; I12.9 Hypertensive chronic kidney disease with stage 1 through stage 4 chronic kidney disease, or unspecified chronic kidney disease; K31.84 Gastroparesis; E11.42 Type 2 diabetes mellitus with diabetic polyneuropathy; N18.32 Chronic kidney disease, stage 3b; E86.0 Dehydration; K21.9 Gastro-esophageal reflux disease without esophagitis; E78.5 Hyperlipidemia, unspecified; D64.9 Anemia, unspecified; E11.319 Type 2 diabetes mellitus with unspecified diabetic retinopathy without macular edema; F31.9 Bipolar disorder, unspecified; Z79.4 Long term (current) use of insulin; Z87.891 Personal history of nicotine dependence; Z89.421 Acquired absence of other right toe(s); Z91.198 Patient's noncompliance with other medical treatment and regimen for other reason
CPT/HCPCS: 36415; 73660; 80048; 80053; 80202; 81003; 82948; 83036; 83605; 83735; 85025; 85027; 85610; 85652; 85730; 86140; 87040; 88305; 88311; 96361; 96365; 96367; 96375; 99285; A9270; G0378; J0692; J1650; J1815; J1836; J2405; J2704; J3010; J3370; J7030; J7120

== ENCOUNTER 2024-10-19 13:05 | Inpatient (IN) | payer SELFPAY ==
--- NOTE | ~2024-10-19 | CT_ITS ---
Procedure: CT foot RT wo con Ordering provider: Eric Montes MD History: . Diabetic wound . Comparison: None. Technique: Thin slice axial CT of the No IV contrast was given. Sagittal and coronal reformatted imag es were also obtained and reviewed. Radiation reduction technique utilized. The dose-length product w as 432.43 mGy-cm. Findings: BONES: Status post amputation of the fifth metatarsal bone at the junction of the proximal one third and distal two thirds. Sclerotic changes in the proximal fourth metatarsal bone. JOINT SPACES: Osteoarthritic changes in multiple joints. SOFT TISSUES: Ulceration seen opposite the interphalangeal joint of the big toe on the plantar aspect . Fat stranding also seen in the area. Soft tissue density is seen deep to the plantar fascia with fat stranding in the subcutaneous tissue opposite the calcaneus. No definite abscess formation seen. IMPRESSION: Status post amputation of the fifth metatarsal bone and digits. Sclerotic changes in the proximal fourth metatarsal bone which may be due to old fracture or osteomye litis. Follow-up advised. Ulceration seen in the area of the interphalangeal joint of the big toe with fat stranding seen in th e area. Fat stranding also seen in the area of the calcaneus subcutaneous tissues. Minimal soft tissue density is seen deep to the plantar fascia. This may be infectious. Follow-up adv ised. Reviewed, dictated and finalized at location A. IMPRESSION: Status post amputation of the fifth metatarsal bone and digits. Sclerotic changes in the proximal fourth metatarsal bone which may be due to ol d fracture or osteomyelitis. Follow-up advised. Ulceration seen in the area of the interphalangeal joint of the big toe with fa t stranding seen in the area. Fat stranding also seen in the area of the calcaneus subcutaneous tissues. Minimal soft tissue density is seen deep to the plantar fascia. This may be inf ectious. Follow-up advised.
--- NOTE | ~2024-10-19 | CT_ITS ---
EXAMINATION: CT foot LT wo con DATE: 10/19/2024 15:15 INDICATION: Hepatic lesions TECHNIQUE: High resolution computed tomography (CT) of the foot was performed without intravenous con trast. Additional sagittal and coronal reconstructions were performed. Automated exposure control and iterative reconstruction technique were employed. The dose-length product was 336.16 mGy-cm. COMPARISON: Radiographs dated 12/09/[address] dated 03/20/2023 FINDINGS: There has been interval amputation of the fourth toe with smooth corticated osteotomy margins at the remaining base of the fourth proximal phalanx. There is also been interval progression of joint cente red osteolysis centered at the fifth metatarsophalangeal joint with progressive osteolysis along the proximal two thirds of the fifth proximal phalanx and at the head and neck of the fifth metatarsal. T his underlies an ulceration with overlying bandaging plantar/lateral to the fifth metatarsophalangeal joint. Portions of the erosions are without cortication suggesting ongoing osteolysis and acute on c hronic osteomyelitis. There is some aggressive appearing periosteal reaction along the proximal diaph ysis of the fifth metatarsal. There is chronic juxta articular erosions with overhanging consistent s clerotic margins at the lateral base of the fourth metatarsal and at the medial head of the first pro ximal phalanx which are more suggestive of changes of gout. Mild polyarticular osteoarthritis at the first metatarsophalangeal and a few of the tarsal metatarsal and interphalangeal joints. The right fo ot is included on the images but will be described on separate report. IMPRESSION: 1. . Progression of likely ongoing chronic osteomyelitis at the base of the fifth proximal phalanx at the head and neck of the fifth metatarsal. 2. Chronic erosions at the head of the first proximal phalanx and at the base of the fourth metatarsa l with location and appearance most consistent with gout. Reviewed, dictated and finalized at location A. IMPRESSION: 1. . Progression of likely ongoing chronic osteomyelitis at the base of the fif th proximal phalanx at the head and neck of the fifth metatarsal. 2. Chronic erosions at the head of the first proximal phalanx and at the base o f the fourth metatarsal with location and appearance most consistent with gout.
[2024-10-19 13:17] VITALS: BP 185/157; PULSE 139; RESP 15; TEMP 36.7; O2SAT 100
[2024-10-19 13:32] LABS: Glucose Point of Care 479 mg/dl (65-105)
[2024-10-19] MEDS: ONDANSETRON INJ 4 MG/2 ML VIAL IV PUSH ×2 (13:33→20:34)
--- NOTE | 2024-10-19 13:34 | ED_ITS ---
HPI - General Adult General Chief complaint: Nausea/Vomiting/Diarrhea Stated complaint: n/v x 3 days History of Present Illness HPI narrative: 49-year-old male presents to the emergency department for evaluation for 3 days of nausea vomiting and diarrhea. Patient does have history of type 2 diabetes, noncompliance with medications, hypertension, chronic kidney disease, neuropathy and toe amputations. Patient states due to the persistent nausea vomiting has been able to take medications. Patient states he has been taking his Lantus injections though. Patient states that he did quit smoking marijuana about 3 days ago Related Data Home Medications ?Medication ?Instructions ?Recorded ?Confirmed ?Last Taken ?Type metoprolol tartrate 50 mg tablet 50 mg PO BID 03/21/23 10/19/24 12/08/23 History omeprazole 20 mg capsule,delayed 20 mg PO DAILY 03/21/23 10/19/24 12/08/23 History release sertraline 50 mg tablet 100 mg PO DAILY 03/21/23 10/19/24 12/08/23 History simvastatin 20 mg tablet 20 mg PO HS 03/21/23 10/19/24 12/08/23 History buspirone 15 mg tablet 10 mg PO TID 10/19/24 10/19/24 Unknown History empagliflozin 25 mg tablet mg 10/19/24 Unknown History (Jardiance) lisinopril 20 tablet PO DAILY 10/19/24 Unknown History mg-hydrochlorothiazide 12.5 mg tablet sertraline 100 mg tablet 100 mg PO Q24H 10/19/24 10/19/24 Unknown History Allergies Allergy/AdvReac Type Severity Reaction Status Date / Time bee stings Allergy Unknown Unknown Uncoded 10/19/24 13:12 Review of Systems 2 Review of Systems: All systems reviewed & are unremarkable except as noted in HPI and below [facility] Past Medical History Medical History (Updated 10/19/24 @ 18:44 by Eric Montes MD) Diastolic dysfunction Echocardiogram 07/2021: Grade 1 diastolic dysfunction, no intracardiac shunt with agitated saline, EF 65-70, no valvular abnormalities, mild concentric increased left ventricular wall thickness Chronic anemia Diabetic gastroparesis Diabetic retinopathy History of GI bleed Secondary to esophagitis noted on EGD in November 2017. History of suicide attempt Chronic kidney disease, stage 3 Baseline creatinine appears to be between 1.8-2 Hypertension History of osteomyelitis Right 5th toe, status post amputation. Bipolar disorder GERD (gastroesophageal reflux disease) Surgical History Surgical History (Updated 05/17/24 @ 10:52 by Aleksandra Ruiz MA) Amputation of toe of left foot 12/09/23 Open amputation left 4th toe Dr. Dumont Status post amputation of toe of right foot Right 5th toe amputation including the distal metatarsal in 2018. Open amputation of right 5th metatarsal in July 2019 for osteomyelitis of right 5th metatarsal stump. Family History Family History Other Adopted Social History Social History (Updated 05/17/24 @ 10:53 by Aleksandra Ruiz MA) Social History: The patient lives in [place] with his and their 3 children, 1 biological daughter and 2 step children. 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 He is a previous smoker, both cigars and cigarettes. He does smoke cannabis. He denies alcohol use. , Pari, is his surrogate decision maker and he wishes to be a full code. Smoking packs per day: 1 Smoking cigarettes per day: 20.0 Years smoked: 20 Smoking pack-years: 20.00 Smoking status: Former smoker Second hand tobacco smoke exposure: Yes Smoking end date: 10/16/24 Additional smoking assessment comments: Alcohol intake: never Substance use: never Substance use type: does not use Last use: 03/20/23 Do You Feel Safe in your Home?: Yes Lack of Transportation: YES Lack of Food: Never True Current Housing: Decline to Answer Concerned About Future Housing: Decline to Answer Difficulty Paying Gas/Electric Bills: Decline to Answer Difficulty Paying for Meds: Decline to Answer Currently Unemployed: Decline to Answer Education: Associate Degree Difficulty w/ Childcare or Family Care: Decline to Answer Gender identity (if verbalized by the patient): Male Spiritual care concerns: No Agree to blood products: Yes Exam 2 Narrative: APPEARANCE: Ill-appearing HEAD: normocephalic, atraumatic. EYES: PERRLA/EOMI, conjunctivae clear. NOSE: Normal no drainage EARS:TMS clear with good light reflex. THROAT: Pharynx clear, no exudate. NECK: Supple. No adenopathy, no masses. RESPIRATORY: Airway patent, respirations nonlabored. Clear to auscultation bilaterally, no rales, rhonchi, wheezing. CARDIOVASCULAR: Regular rate and rhythm without murmurs rubs or gallops. ABDOMINAL: Soft, nontender, nondistended, normal bowel sounds MUSCULOSKELETAL: Moves all extremities. Strength/ROM intact, No edema, No calf tenderness. NEURO: Alert. Cranial nerves II through XII intact. Grossly intact SKIN: Warm, dry. Normal Color Course Vital Signs Vital signs: Vital Signs Temperature 98.0 F 10/19/24 13:17 Pulse Rate 139 H 10/19/24 13:17 Respiratory Rate 15 10/19/24 13:17 Blood Pressure 185/157 H 10/19/24 13:17 Pulse Oximetry 100 10/19/24 13:17 Oxygen Delivery Room Air 10/19/24 13:17 Temperature 98.1 F 10/19/24 18:00 Pulse Rate 118 H 10/19/24 18:00 Respiratory Rate 10 L 10/19/24 18:00 Blood Pressure 192/117 H 10/19/24 18:00 Pulse Oximetry 98 10/19/24 18:00 Oxygen Delivery Room Air 10/19/24 13:17 Medical Decision Making [facility] Narrative Medical decision making narrative: 49-year-old male history of type 2 diabetes with noncompliance presents emergency department for evaluation for nausea vomiting. Patient was tachycardic upon arrival emergency department with heart rate in the 140s this did improve with rehydration. Patient is currently afebrile but does have a leukocytosis of 14.4 and hemoglobin of 14.6. Patient's initial ABG had a pH of 7.397 a pCO2 of 24.6 and a PO2 of and 2.2. Patient did have a initial anion gap of 30 upon arrival with a blood sugar of 511. UA was negative for infection. Patient does have bilateral diabetic foot wounds, blood cultures were ordered, wound cultures were ordered and patient was started on Flagyl, cefepime and vancomycin. CT scans were ordered of the feet bilaterally. Wounds appear to be chronic, no significant localized erythema. No active purulence. ICU was consulted and patient was admitted to the hospitalist. Patient was updated the results of workup plan for admission. Differential Diagnosis Differential Diagnosis: Diabetic foot wounds, tachycardia, DKA Vital Signs Vital Signs: Vital Signs Temperature 98.0 F 10/19/24 13:17 Pulse Rate 139 H 10/19/24 13:17 Respiratory Rate 15 10/19/24 13:17 Blood Pressure 185/157 H 10/19/24 13:17 Pulse Oximetry 100 10/19/24 13:17 Oxygen Delivery Room Air 10/19/24 13:17 Temperature 98.1 F 10/19/24 18:00 Pulse Rate 118 H 10/19/24 18:00 Respiratory Rate 10 L 10/19/24 18:00 Blood Pressure 192/117 H 10/19/24 18:00 Pulse Oximetry 98 10/19/24 18:00 Oxygen Delivery Room Air 10/19/24 13:17 Lab Data Lab results reviewed: Yes I reviewed the patient's lab results. 10/19/24 13:31 10/19/24 18:01 Labs: Lab Results 10/19/24 10/19/24 10/19/24 Range/Units 13:30 13:31 13:32 WBC 14.4 H (4.5-10.0) K/mm3 RBC 5.77 (4.6-6.20) M/mm3 Hgb 14.6 (14.0-18.0) g/dL Hct 46.7 (42.0-52.0) % MCV 80.9 (80-100) fl MCH 25.3 L (26-34) pg MCHC 31.3 L (32-36) g/dl RDW 15.0 H (11.5-14.5) % Plt Count 397 H D (150-375) k/mm3 MPV 11.1 H (7.4-10.4) fl Immature Gran % (Auto) 0.8 H (0-0.5) % Neut % (Auto) 87.8 H (45.5-73.1) % Lymph % (Auto) 6.7 L (18.3-44.2) % Morrow % (Auto) 4.5 (2.6-8.5) % Eos % (Auto) 0.0 (0-4.4) % Baso % (Auto) 0.2 (0.2-1.2) % Lymph # (Auto) 0.97 (0.9-3.2) K/mm3 Morrow # (Auto) 0.6 (0.1-0.6) K/mm3 Eos # (Auto) 0.0 (0-0.3) K/mm3 Baso # (Auto) 0.0 (0.0-0.1) K/mm3 Abs Immat Gran (auto) 0.12 H (0.00-0.031) K/mm3 Absolute Neuts (auto) 12.6 H (1.3-6.7) K/mm3 Absolute Nucleated RBC 0.000 (0.0-0.012) K/mm3 Nucleated RBC % 0.0 (0.0-0.2) % Methemoglobin (0-1.5) %THb Sodium 138 (137-145) mmol/L Potassium 4.3 (3.4-5.0) mmol/L Chloride 94 L (98-107) mmol/L Carbon Dioxide 14 L (22-30) mmol/L Anion Gap 30 H (4-12) mmol/L BUN 40 H D (9-20) mg/dL Creatinine 2.53 H (0.7-1.3) mg/dL Estim Creat Clear Calc 36 ml/min Estimated GFR 27 L (59 - ) Glucose 511 H* (65-110) mg/dL POC Capillary Glucose 479 H (65-105) mg/dl Hemoglobin A1c > 14.0 H (<5.7) % Lactic Acid 3.2 H (0.7-2.0) mmol/L Calcium 9.9 (8.4-10.2) mg/dL Phosphorus 4.9 H (2.5-4.5) mg/dL Magnesium 2.3 (1.6-2.3) mg/dL Total Bilirubin 0.7 (0.2-1.3) mg/dL AST 27 (17-59) U/L ALT 17 (6-50) U/L Alkaline Phosphatase 125 (38-126) U/L Total Protein 8.4 H (6.3-8.2) g/dL Albumin 4.6 (3.5-5.1) g/dL Beta-Hydroxybutyrate/Acetoacetate 10.10 H (0.02-0.27) mmol/L 10/19/24 10/19/24 Range/Units 14:26 15:26 WBC (4.5-10.0) K/mm3 RBC (4.6-6.20) M/mm3 Hgb (14.0-18.0) g/dL Hct (42.0-52.0) % MCV (80-100) fl MCH (26-34) pg MCHC (32-36) g/dl RDW (11.5-14.5) % Plt Count (150-375) k/mm3 MPV (7.4-10.4) fl Immature Gran % (Auto) (0-0.5) % Neut % (Auto) (45.5-73.1) % Lymph % (Auto) (18.3-44.2) % Morrow % (Auto) (2.6-8.5) % Eos % (Auto) (0-4.4) % Baso % (Auto) (0.2-1.2) % Lymph # (Auto) (0.9-3.2) K/mm3 Morrow # (Auto) (0.1-0.6) K/mm3 Eos # (Auto) (0-0.3) K/mm3 Baso # (Auto) (0.0-0.1) K/mm3 Abs Immat Gran (auto) (0.00-0.031) K/mm3 Absolute Neuts (auto) (1.3-6.7) K/mm3 Absolute Nucleated RBC (0.0-0.012) K/mm3 Nucleated RBC % (0.0-0.2) % Methemoglobin 0.1 (0-1.5) %THb Sodium 141 (137-145) mmol/L Potassium 4.2 (3.4-5.0) mmol/L Chloride 95 L (98-107) mmol/L Carbon Dioxide 14 L (22-30) mmol/L Anion Gap 32 H (4-12) mmol/L BUN 38 H (9-20) mg/dL Creatinine 2.34 H (0.7-1.3) mg/dL Estim Creat Clear Calc 39 ml/min Estimated GFR 30 L (59 - ) Glucose 479 H (65-110) mg/dL POC Capillary Glucose (65-105) mg/dl Hemoglobin A1c (<5.7) % Lactic Acid (0.7-2.0) mmol/L Calcium 10.0 (8.4-10.2) mg/dL Phosphorus (2.5-4.5) mg/dL Magnesium (1.6-2.3) mg/dL Total Bilirubin (0.2-1.3) mg/dL AST (17-59) U/L ALT (6-50) U/L Alkaline Phosphatase (38-126) U/L Total Protein (6.3-8.2) g/dL Albumin (3.5-5.1) g/dL Beta-Hydroxybutyrate/Acetoacetate (0.02-0.27) mmol/L ABG Data ABG results: 10/19/24 14:26 Puncture Site Left radial ABG pH 7.397 ABG pCO2 24.6 L ABG pO2 92.2 ABG PO2/FiO2 Ratio 4.39 ABG HCO3 14.8 L ABG O2 Saturation 97.2 ABG O2 Content 18.7 ABG Base Excess -8.1 A-a Gradient 28.1 Oxyhemoglobin 96.2 Carboxyhemoglobin 0.6 Reduced Hemoglobin 3.1 Total Hemoglobin 13.8 O2 Delivery Device Room air O2 Liters/Min Not Reportable FiO2 21 Imaging Data Radiologist's impression: Impressions Foot CT 10/19/24 15:21 IMPRESSION: Status post amputation of the fifth metatarsal bone and digits. Sclerotic changes in the proximal fourth metatarsal bone which may be due to old fracture or osteomyelitis. Follow-up advised. Ulceration seen in the area of the interphalangeal joint of the big toe with fat stranding seen in the area. Fat stranding also seen in the area of the calcaneus subcutaneous tissues. Minimal soft tissue density is seen deep to the plantar fascia. This may be infectious. Follow-up advised. Foot CT 10/19/24 15:24 IMPRESSION: 1. . Progression of likely ongoing chronic osteomyelitis at the base of the fifth proximal phalanx at the head and neck of the fifth metatarsal. 2. Chronic erosions at the head of the first proximal phalanx and at the base of the fourth metatarsal with location and appearance most consistent with gout. 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
[2024-10-19] MEDS: PANTOPRAZOLE SODIUM IV 40 MG VIAL IV PUSH (13:35)
[2024-10-19] MEDS: HALOPERIDOL LACTATE 5 MG/ML VIAL IM (13:36)
[2024-10-19] MEDS: LACTATED RINGERS 1,000 ML 999 ML IV CONT (13:39)
[2024-10-19] MEDS: FAMOTIDINE 20 MG/2 ML VIAL IV PUSH (13:41)
[2024-10-19 13:54] LABS: Basophils Percent Auto 0.2 % (0.2-1.2); Hematocrit 46.7 % (42.0-52.0); Hemoglobin 14.6 g/dL (14.0-18.0); Immature Granulocyte Absolute 0.12 K/mm3 (0.00-0.031); Immature Granulocyte Percent A 0.8 % (0-0.5); Lymphocytes Absolute Auto 0.97 K/mm3 (0.9-3.2); Lymphocytes Percent Auto 6.7 % (18.3-44.2); Mean Corpuscular HGB Conc 31.3 g/dl (32-36); Mean Corpuscular Hemoglobin 25.3 pg (26-34); Mean Corpuscular Volume 80.9 fl (80-100); Mean Platelet Volume 11.1 fl (7.4-10.4); Monocytes Absolute Auto 0.6 K/mm3 (0.1-0.6); Monocytes Percent Auto 4.5 % (2.6-8.5); Neutrophils Absolute Auto 12.6 K/mm3 (1.3-6.7); Neutrophils Percent Auto 87.8 % (45.5-73.1); Platelet Count Result 397 k/mm3 (150-375); Red Blood Count 5.77 M/mm3 (4.6-6.20); White Blood Count 14.4 K/mm3 (4.5-10.0)
[2024-10-19 14:00] LABS: Lactic Acid Reflex 3.2 mmol/L (0.7-2.0)
--- OUTSIDE RECORDS SUMMARY | 2024-10-19 14:06 | XMS_ITS | Clinical Summary ---
Author Organization [email or web address] Address [address] [place] [address] Care Team Providers Care Revenue Cycle Consultant Name Role Phone Katlyn Everett MD Primary Care Provider [phone] Source Comments [facility],non-owned Affiliates and Associated Physician Practices is amultiple site organization consisting of ambulatory clinics and hospital sitesin [place], [place], [place] and [place]. This disclosure is being madepursuant to the Care Everywhere program and may not contain all information available regarding this patient. Last updated 18.[facility] Allergies No known active allergies Medications * Be aware that medications may not be up to date on this document. Alwaysverify current medications with the patient. 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 07/14/2017 Social History Tobacco Use Types Packs/Day Years Used Date Smoking Tobacco: Former Cigarettes Q uit: 03/16/2016 Smokeless Tobacco: Never Alcohol Use Standard Drinks/Week Comments No 0 (1 standard drink = 0.6 oz pur e alcohol) Sex and Gender Information Value Date Recorded Sex Assigned at Not on file Legal Sex Male 5:59 PM CDT Gender Identity Not on file Sexual Orientation Not on file Last Filed Vital Signs Vital Sign Reading Time Taken Comments Blood Pressure 141/85 09/27/2017 1:45 PM CDT Pulse 87 09/27/2017 1:45 PM CDT Temperature 36.6 C (97.8 F) 09/27/2017 1:45 PM CDT Respiratory Rate 16 09/27/2017 1:45 PM CDT Oxygen Saturation 98% 09/27/2017 1:45 PM CDT Inhaled Oxygen Concentration - - Weight 93.4 kg (206 lb) 09/27/2017 11:28 AM CDT Height 182.9 cm (6') 09/27/2017 11:28 AM CDT Body Mass Index 27.94 09/27/2017 11:28 AM CDT Plan of Treatment Health Maintenance Due Date Last Done Comments COLOGUARD (AGES 45-75) - COLON CA SCREENING 1977 COLON MONITORING 1977 COLONOSCOPY - COLON CA SCREENING 1977 CT COLONOGRAPHY - COLON CA SCREENING 1977 Colorectal Cancer Screening 1977 FIT - COLON CA SCREENING 1977 FLEX SIG - COLON CA SCREENING 1977 HIV SCREENING 1992 HEPATITIS C SCREENING 08/06/1995 DIABETES-SERUM CREATININE 08/11/1995 DTAP/TDAP/TD VACCINES (1 - Tdap) 1996 HEPATITIS B VACCINE (1 of 3 - 19+ 3-dose series) 1996 PNEUMOCOCCAL VACCINE (1 of 2 - PCV) 1996 DIABETES-STATIN 2017 DIABETES-FOOT EXAM WITH MONOFILAMENT 08/18/2017 DIABETES-HGB A1C 08/18/2017 DIABETES RETINOPATHY SCREENING 10/10/2018 10/10/2017, 09/28/2017, 08/18/2017, Additional history exists COVID-19 VACCINE ( - 2023- season) 2024 DEPRESSION SCREENING 05/09/2024 DIABETES - URINE PROTEIN SCREENING 05/09/2024 INFLUENZA VACCINE (Season Ended) 2025 ZOSTER VACCINE (1 of 2) 08/11/2027 HIB VACCINE Aged Out No longer eligi ble based on patient's age to complete this topic HPV VACCINE Aged Out No longer eligi ble based on patient's age to complete this topic MENINGOCOCCAL (Group B) VACCINE SHARED DECISION-MAKING Aged Out No longer eligible based on patient's age to complete this topic MENINGOCOCCAL GROUPS A/C/Y/W VACCINE Aged Out No longer eligible based on patient's age to complete this topic Insurance [facility] SELF PAY NO INSURANCE Member Subscriber Plan / Payer (Ef fective for All Dates) Name:Dejan Sevilla W Member ID:Not on file Relation to Subscriber:Not on file Name:DEJAN SEVILLA Subscriber ID:Not on file (Home) Address: [address] [place] [id number] Payer ID:Not on file Group ID:Not on file Type:Self Pay Address: [place], [place] * Guarantor: DEJAN SEVILLA Account Type Relation to Patient Date of Phone Billing Address Personal/Family [address] [place] [address] [facility] SELF PAY NO INSURANCE Member Subscriber Plan / Payer (Ef fective for All Dates) Name:Jessica Sevillant W Member ID:Not on file Relation to Subscriber:Not on file Name:DIDEJAN Subscriber ID:Not on file Address: [address] [place] [address] Payer ID:Not on file Group ID:Not on file Type:Self Pay Address: [place], [place] [facility] SELF PAY NO INSURANCE Member Subscriber Plan / Payer (Ef fective for All Dates) Name:DiJessicant W Member ID:Not on file Relation to Subscriber:Not on file Name:DEJAN SEVILLA Subscriber ID:Not on file Address: [address] [place] [phone] Payer ID:Not on file Group ID:Not on file Type:Self Pay Address: [place], [place] [facility] SELF PAY NO INSURANCE Member Subscriber Plan / Payer (Ef fective for All Dates) Name:Dejan Sevilla Member ID:Not on file Relation to Subscriber:Not on file Name:DEJAN SEVILLA Subscriber ID:Not on file Address: [address] [place] [address] Payer ID:Not on file Group ID:Not on file Type:Self Pay Address: [place], [place] Advance Directives * Full Code (Latest Code Status on File) Date Activated Date Inactivated Comments 09/26/2017 4:39 PM 09/27/2017 2:59 PM Care Teams Revenue Cycle Consultant Relationship Specialty Start Date End Date Katlyn Everett MD [address] [place] [address] PCP - General 08/17/17
--- OUTSIDE RECORDS SUMMARY | 2024-10-19 14:06 | XMS_ITS | Data Portability ---
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 Lab HbA1c (hemoglobi n A1c), blood 2024 025 [email or web address] In-Office Order, Internal Use Only DO Not Attach Compendium DO Not Attach Compendium, Do Not Delete/merge, [id number] 12:59:32 CMP, serum or plasma 2024 025 LETY LAB[facility]HELLE, [facility], [address], [place], [address], 5 22:08:25 lipid panel, serum 2024 025 LETY NUÑEZ, [facility], [address], [place], [address], 5 22:08:24 albumin/cr eatinine, mass ratio, urine 2024 025 LETY NUÑEZ, [address] [place] [address], [address], [place], [address], 5 08:32:29 lipid panel, serum 2023 024 LETY SHOOKASHLEY, [address], [address], [place], [address], 4 00:07:36 CMP, serum or plasma 2023 024 LETY SHOOKRP, [address], [address], [place], [address], 4 00:07:37 albumin/cr eatinine, mass ratio, urine 2023 024 LETY SHOOKASHLEY, [address], [address], [place], [address], 4 09:16:55 HbA1c (hemoglobi n A1c), blood 2023 [email or web address] In-Office Order, Internal Use Only DO Not Attach Compendium DO Not Attach Compendium, Do Not Delete/merge, [id number] 4 15:24:43 noninvasiv e colorectal cancer DNA + occult blood screening, QL, stool 2023 [email or web address] [facility] (Cologuard Orders Only), [address], [address], [place], [address], 4 15:24:28 lipid panel, serum 2022 023 LETY SHOOKASHLEY, [address], [address], [place], [address], 3 16:27:26 CMP, serum or plasma 2022 023 LETY PRIDEMICHELLE, [address]erv[address], [address], [place], [address], 3 16:27:25 albumin/cr eatinine, mass ratio, urine 2022 023 LETY PRIDEMICHELLE, [address], [address], [place], [address], 3 16:27:25 HbA1c (hemoglobi n A1c), blood 2022 023 [email or web address] In-Office Order, Internal Use Only DO Not Attach Compendium DO Not Attach Compendium, Do Not Delete/merge, [id number] 3 16:27:17 noninvasiv e colorectal cancer DNA + occult blood screening, QL, stool 2022 023 [facility] (Cologuard Orders Only), [address], [address], [place], [address], 4 10:35:33 lipid panel, serum 2022 023 LETY SHANNENMICHELLE, [address], [address], [place], [address], 3 15:11:03 CMP, serum or plasma 2022 023 LETY SHANNENMICHELLE, [facility] [address], [address], [place], [address], 3 15:11:04 albumin/cr eatinine, mass ratio, urine 2022 023 [facility], [address], [address], [place], [address], 3 15:11:02 HbA1c (hemoglobi n A1c), blood 2022 023 LETY SHANNENVALERIA, [facility] [address], [address], [place], [address], 3 15:11:04 Referral endocrinol ogy referral 2024 025 [facility]inology , Diabetes And Metabolism, [address], [address], [place], [address], 5 16:00:48 infantry weapons officer 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 [email or web address], [address], [place], [address], 5 12:47:45 wound care referral 2024 025 [facility], [address] [facility], [place], [address], 5 12:24:28 diabetic ophthalmol ogy referral 2023 024 [email or web address] [facility], [place], [address], 4 07:53:[address] referral 2023 024 [email or web address] [facility], [address] [place] [address], [address], [address], [place], [address], 4 08:04:[address] referral 2023 024 RESERVE Se Herman MD, [address], [place], [address], 4 11:44:06 infantry weapons officer referral 2023 024 [facility], [address], [place], [address], 5 10:17:25 infantry weapons officer referral 2022 023 [email or web address] [facility], [address], [place], [address], 4 15:35:[address] referral 2022 023 [email or web address], [address] [facility] , [address], [address], [place], [address], 4 11:42:21 diabetic ophthalmol ogy referral 2022 023 [email or web address] [facility], [address], [place], [address], 3 08:28:38 diabetic ophthalmol ogy referral 2022 023 [email or web address] [facility], [address], [place], [address], 3 10:51:40 Procedures colonoscop y screening (PROC) 2022 023 [email or web address] Goldy Edmond MD, [address] [facility] [address], [address], [place], [address], 3 11:40:33 Surgeries None recorded. Imaging XR, toe(s) 2024 025 [facility] (One Call Scheduling), [address], [place], [address], 5 08:07:30 Medication Orders Lantus U-100 Insulin 100 unit/mL subcutaneo us solution 2024 025 [facility]18, [address], [place], [place], [id number], 5 12:22:27 simvastati n 20 mg tablet 2024 025 [facility] #35868, [address], [place], [place], [id number], 5 12:22:28 sertraline 100 mg tablet [address] [facility]29257, [address], [place], [place], [id number], 5 12:22:28 buspirone 10 mg tablet [address] [facility]28944, [address], [place], [place], [id number], 5 12:22:28 metoprolol tartrate 50 mg tablet [address] [facility]74601, [address], [place], [place], [id number], 5 12:52:46 lisinopril 20 mg-hydroch lorothiazi de 12.5 mg tablet [address] [facility]03097, [address], [place], [place], [id number], 5 12:22:28 Jardiance 25 mg tablet 2023 025 LETY [facility] #10597, [address], [place], [place], [id number], 5 11:53:34 simvastati n 20 mg tablet [address] [facility]53301, [address], [place], [place], [id number], 4 15:24:28 Lantus U-100 Insulin 100 unit/mL subcutaneo us solution [address] [facility]54321, [address], [place], [place], [id number], 4 15:24:29 sertraline 50 mg tablet [address] [facility] #78412, [address], [place], [place], [id number], 4 15:24:28 lisinopril 20 mg-hydroch lorothiazi de 12.5 mg tablet [address] [facility] #00365, [address], [place], [place], [id number], 4 15:24:28 metoprolol tartrate 50 mg tablet [address] [facility] #31232, [address], [place], [place], [id number], 4 15:24:28 Silvadene 1 % topical cream 2022 023 [facility] #64970, [address], [place], [place], [id number], 3 16:27:22 Jardiance 25 mg tablet 2022 023 [facility] #45874, [address], [place], [place], [id number], 5 11:53:15 Ozempic 0.25 mg or 0.5 mg (2 mg/1.5 mL) subcutaneo us pen injector 2022 024 [facility] #24612, [address], [place], [place], [id number], 4 15:16:18 simvastati n 20 mg tablet 2022 023 [facility] #85283, [address], [place], [place], [id number], 3 08:24:36 sertraline 50 mg tablet 2022 023 [facility] #94048, [address], [place], [place], [id number], 3 16:43:30 lisinopril 20 mg-hydroch lorothiazi de 12.5 mg tablet 2022 023 [facility] #67102, [address], [place], [place], [id number], 3 08:24:35 metoprolol tartrate 50 mg tablet 2022 023 [facility] #45599, [address], [place], [place], [id number], 3 08:24:36 sertraline 50 mg tablet 2022 023 [facility] #36519, [address], [place], [place], [id number], 3 10:40:37 sertraline 50 mg tablet 2022 023 [facility] #90204, [address], [place], [place], [id number], 3 15:22:42 Patient TargetsNo targets recorded. 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 Referring Physician: General Maycol Giron, Encounter Date: 09/27/2022 Diabetic Ophthalmology 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 Referring Physician: General Maycol Giron, Encounter Date: 04/26/2023 Geothermal Plant Manager Referral for Foot ulcer due to type 2 diabetes mellitus Referring Physician: General Maycol Giron, Encounter Date: 04/26/2023 Camp Maintenance Supervisor Referral for Ch ronic kidney disease Referring Physician: General Maycol Giron, Encounter Date: 04/26/2023 Camp Maintenance Supervisor Referral for Ch ronic kidney disease Referring Physician: General Maycol Giron, Encounter Date: 02/28/2024 Geothermal Plant Manager Referral for Ampu tated toe Referring Physician: General Maycol Giron, Encounter Date: 02/28/2024 Diabetic Ophthalmology 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 Referring Physician: General Maycol Giron, Encounter Date: 02/28/2024 Gluing Pressman Referral for Es sential hypertension Referring Physician: General Maycol Giron, Encounter Date: 02/28/2024 Endocrinology Referral for D iabetes mellitus Referring Physician: General Maycol Giron, Encounter Date: 06/28/2024 Referring Physician: General Maycol Davis, Encounter Date: 06/28/2024 Geothermal Plant Manager Referral for Foot callus Referring Physician: General Maycol Giron, Encounter Date: 06/28/2024 Results Created Date Observation Date Name Description Value Unit Range Abnormal Flag Note LastModifiedBy Organization Detail LastModifiedTime 03/02/20 24 03/02/2024 COLOG UARD cologuard result Cancel led - Duplic ate Order not applic able Not Available [facility] (Cologuard Orders Only) [address], [place], [address], 03/02/2024 10:35:33 09/28/19 23 09/28/2022 ALBUM IN/CR EATIN INE RATIO ,URIN E creatinine, urine 139.4 mg/dL notest ab. Not Available [facility] ([facility]) [address] [place], [address], 09/28/2022 15:11:02 09/28/19 23 09/28/2022 ALBUM IN/CR EATIN INE RATIO ,URIN E albumin, urine 87.5 ug/mL notest ab. Not Available [facility] ([facility]) [address] [place], [address], 09/28/2022 15:11:02 09/28/19 23 09/28/2022 ALBUM IN/CR EATIN INE RATIO ,URIN E alb/creat ratio 63 mg/g_ creat 0-29 above high normal Vicky l: 0 - 29 Moder ately incre ased: 30 - 300 Sever massimo incre ased: >300 Not Available [facility] ([facility]) [address] [place], [address], 09/28/2022 15:11:02 09/28/19 23 09/28/2022 LIPID PANEL cholesterol, total 147 mg/dL 100-19 9 Not Available [facility] ([facility]) [address] [place], [address], 09/28/2022 15:11:03 09/28/19 23 09/28/2022 LIPID PANEL triglyceride s 212 mg/dL 0-149 above high normal Not Available [facility] ([facility]) [address] [place], [address], 09/28/2022 15:11:03 09/28/19 23 09/28/2022 LIPID PANEL HDL cholesterol 50 mg/dL >39 Not Available [facility] ([facility]) [address] [place], [address], 09/28/2022 15:11:03 09/28/19 23 09/28/2022 LIPID PANEL VLDL cholesterol aston 34 mg/dL 5-40 Not Available [facility] ([facility]) [address] [place], [address], 09/28/2022 15:11:03 09/28/19 23 09/28/2022 LIPID PANEL LDL chol calc ([facility]) 63 mg/dL 0-99 Not Available [facility] ([facility]) [address] [place], [address], 09/28/2022 15:11:03 09/28/19 23 09/28/2022 COMP. METAB OLIC PANEL (14) glucose 121 mg/dL 70-99 above high normal Not Available [facility] ([facility]) [address] [place], [address], 09/28/2022 15:11:04 09/28/19 23 09/28/2022 COMP. METAB OLIC PANEL (14) BUN 29 mg/dL 6-24 above high normal Not Available [facility] ([facility]) [address] [place], [address], 09/28/2022 15:11:04 09/28/19 23 09/28/2022 COMP. METAB OLIC PANEL (14) creatinine 2.04 mg/dL 0.76-1 .27 above high normal Not Available [facility] ([facility]) [address] [place], [address], 09/28/2022 15:11:04 09/28/19 23 09/28/2022 COMP. METAB OLIC PANEL (14) eGFR 40 mL/mi n/1.7 3 >59 below low normal Not Available [facility] ([facility]) [address] [facility] [place], [address], 09/28/2022 15:11:04 09/28/19 23 09/28/2022 COMP. METAB OLIC PANEL (14) BUN/creatini ne ratio 14 9-20 Not Available [facility] ([facility]) [address] [facility] [place], [address], 09/28/2022 15:11:04 09/28/19 23 09/28/2022 COMP. METAB OLIC PANEL (14) sodium 143 mmol/ L 134-14 4 Not Available [facility] ([facility]) [address] [facility] [place], [address], 09/28/2022 15:11:04 09/28/19 23 09/28/2022 COMP. METAB OLIC PANEL (14) potassium 4.3 mmol/ L 3.5-5. 2 Not Available [facility] ([facility]) [address] [facility] [place], [address], 09/28/2022 15:11:04 09/28/19 23 09/28/2022 COMP. METAB OLIC PANEL (14) chloride 101 mmol/ L 96-106 Not Available [facility] ([facility]) [address] [facility] [place], [address], 09/28/2022 15:11:04 09/28/19 23 09/28/2022 COMP. METAB OLIC PANEL (14) carbon dioxide, total 23 mmol/ L 20-29 Not Available [facility] ([facility]) [address] [facility] [place], [address], 09/28/2022 15:11:04 09/28/19 23 09/28/2022 COMP. METAB OLIC PANEL (14) calcium 9.7 mg/dL 8.7-10 .2 Not Available [facility] ([facility]) [address] [facility], [place], [address], 09/28/2022 15:11:04 09/28/19 23 09/28/2022 COMP. METAB OLIC PANEL (14) protein, total 7.5 g/dL 6.0-8. 5 Not Available [facility] ([facility]) [address] [place], [address], 09/28/2022 15:11:04 09/28/19 23 09/28/2022 COMP. METAB OLIC PANEL (14) albumin 4.6 g/dL 4.0-5. 0 Not Available [facility] ([facility]) [address] [place], [address], 09/28/2022 15:11:04 09/28/19 23 09/28/2022 COMP. METAB OLIC PANEL (14) globulin, total 2.9 g/dL 1.5-4. 5 Not Available [facility] ([facility]) [address], [place], [address], 09/28/2022 15:11:04 09/28/19 23 09/28/2022 COMP. METAB OLIC PANEL (14) A/G ratio 1.6 1.2-2. 2 Not Available [facility] ([facility]) [address] [place], [address], 09/28/2022 15:11:04 09/28/19 23 09/28/2022 COMP. METAB OLIC PANEL (14) bilirubin, total 0.4 mg/dL 0.0-1. 2 Not Available [facility] ([facility]) [address] [place], [address], 09/28/2022 15:11:04 09/28/19 23 09/28/2022 COMP. METAB OLIC PANEL (14) alkaline phosphatase 114 IU/L 44-121 Not Available [facility] ([facility]) [address] [place], [address], 09/28/2022 15:11:04 09/28/19 23 09/28/2022 COMP. METAB OLIC PANEL (14) AST (SGOT) 17 IU/L 0-40 Not Available [facility] ([facility]) [address] [facility], [place], [address], 09/28/2022 15:11:04 09/28/19 23 09/28/2022 COMP. METAB OLIC PANEL (14) ALT (SGPT) 13 IU/L 0-44 Not Available [facility] ([facility]) [address] [facility], [place], [address], 09/28/2022 15:11:04 09/28/19 23 09/28/2022 HEMOG LOBIN A1C hemoglobin A1C 9.8 % 4.8-5. 6 above high normal Predi abete s: 5.7 - 6.4 Diabe tom: >6.4 Glyce chavez contr ol for adult s with diabe tom: <7.0 Not Available [facility] ([facility]) [address] [facility], [place], [address], 09/28/2022 15:11:04 04/26/20 23 04/26/2023 HbA1c (hemo globi n A1c), blood HbA1c 8.3 Not Available In-Office Order Internal Use Only DO Not Attach Compendium DO Not Attach Compendium, Do Not Delete/merge, [id number] 04/26/2023 16:22:54 02/28/2002/29/2024 LIPID PANEL cholesterol, total 186 mg/dL 100-19 9 Not Available [facility] Department [address] [place], [address], 02/29/2024 00:07:36 02/28/20 24 02/29/2024 LIPID PANEL triglyceride s 212 mg/dL 0-149 above high normal Not Available [facility] Department [address] [place], [address], 02/29/2024 00:07:36 02/28/20 24 02/29/2024 LIPID PANEL HDL cholesterol 74 mg/dL 40-999 Not Available [facility] Department [address] [place], [address], 02/29/2024 00:07:36 02/28/20 24 02/29/2024 LIPID PANEL VLDL cholesterol aston 42 mg/dL 5-40 above high normal Not Available [facility] Department [address] [place], [address], 02/29/2024 00:07:36 02/28/20 24 02/29/2024 LIPID PANEL LDL chol calc ([facility]) 102 mg/dL 0-99 above high normal Not Available [facility] [address] [place], [address], 02/29/2024 00:07:36 02/28/20 24 02/29/2024 COMP. METAB OLIC PANEL (14) glucose 434 mg/dL 70-99 panic high RESUL TS VERGEOVANNI IED AND LANDRUM D TO Dr. Tara donahue BY Gasper Membreno MLT AT 2250 ON 02/27. Not Available [facility] Department [address] [place], [address], 02/29/2024 00:07:37 02/28/20 24 02/29/2024 COMP. METAB OLIC PANEL (14) BUN 16 mg/dL 6-24 Not Available [facility] Department [address] [place], [address], 02/29/2024 00:07:37 02/28/20 24 02/29/2024 COMP. METAB OLIC PANEL (14) creatinine 1.49 mg/dL 0.76-1 .27 above high normal Not Available [facility] [address] [place], [address], 02/29/2024 00:07:37 02/28/20 24 02/29/2024 COMP. METAB OLIC PANEL (14) eGFR 58 >=60 below low normal Units for eGFR value s are mL/mi n/1.7 3 The eGFR Calcu latio n has not been valid ated for patie nts under the age of 18. If test resul ts are displ ayed for a patie nt under the age of 18, disre devin that value . Not Available [facility] Department [address] [place], [address], 02/29/2024 00:07:37 02/28/20 24 02/29/2024 COMP. METAB OLIC PANEL (14) BUN/creatini ne ratio 11 9-20 Not Available [facility] Department [address] [place], [address], 02/29/2024 00:07:37 02/28/2002/29/2024 COMP. METAB OLIC PANEL (14) sodium 136 mmol/ L 134-14 4 Not Available [facility] Department [address] [place] [address], [address], 02/29/2024 00:07:37 02/28/20 24 02/29/2024 COMP. METAB OLIC PANEL (14) potassium 4.3 mmol/ L 3.5-5. 2 Not Available [facility] [address] [place], [address], 02/29/2024 00:07:37 02/28/20 24 02/29/2024 COMP. METAB OLIC PANEL (14) chloride 97 mmol/ L 96-106 Not Available [facility] Department [address] [place], [address], 02/29/2024 00:07:37 02/28/20 24 02/29/2024 COMP. METAB OLIC PANEL (14) carbon dioxide, total 29 mmol/ L 20-29 Not Available [facility] Department [address] [place], [address], 02/29/2024 00:07:37 02/28/20 24 02/29/2024 COMP. METAB OLIC PANEL (14) calcium 9.4 mg/dL 8.7-10 .2 Not Available [facility] Department [address] [place], [address], 02/29/2024 00:07:37 02/28/2002/29/2024 COMP. METAB OLIC PANEL (14) protein, total 6.7 g/dL 6.0-8. 5 Not Available [facility] Department [address] [place], [address], 02/29/2024 00:07:37 02/28/2002/29/2024 COMP. METAB OLIC PANEL (14) albumin 4.0 g/dL 4.1-5. 1 below low normal Not Available [facility] Department [address] [place], [address], 02/29/2024 00:07:37 02/28/20 24 02/29/2024 COMP. METAB OLIC PANEL (14) globulin, total 2.7 g/dL 1.5-4. 5 Not Available [facility] Department [address] [place], [address], 02/29/2024 00:07:37 02/28/2002/29/2024 COMP. METAB OLIC PANEL (14) A/G ratio 1.0 1.2-2. 2 below low normal Not Available [facility] Department [address] [place], [address], 02/29/2024 00:07:37 02/28/2002/29/2024 COMP. METAB OLIC PANEL (14) bilirubin, total 0.4 mg/dL 0.0-1. 2 Not Available [facility] Department [address] [place], [address], 02/29/2024 00:07:37 02/28/2002/29/2024 COMP. METAB OLIC PANEL (14) alkaline phosphatase 152 IU/L 44-121 above high normal Not Available [facility] Department [address] [place], [address], 02/29/2024 00:07:37 02/28/20 24 02/29/2024 COMP. METAB OLIC PANEL (14) AST (SGOT) 17 IU/L 0-40 Not Available [facility] Department [address] [place], [address], 02/29/2024 00:07:37 02/28/20 24 02/29/2024 COMP. METAB OLIC PANEL (14) ALT (SGPT) 17 IU/L 0-44 Not Available [facility] Department [address] [place], [address], 02/29/2024 00:07:37 02/28/20 24 02/29/2024 ALBUM IN/CR EATIN INE RATIO ,URIN E creatinine, urine 80.4 mg/dL notest ab. Not Available [facility] ([facility]) [address] [place], [address], 02/29/2024 09:16:55 02/28/20 24 02/29/2024 ALBUM IN/CR EATIN INE RATIO ,URIN E albumin, urine 1225.7 ug/mL notest ab. Resul ts confi rmed on dilut ion. Not Available [facility] ([facility]) [address] [place], [address], 02/29/2024 09:16:55 02/28/20 24 02/29/2024 ALBUM IN/CR EATIN INE RATIO ,URIN E alb/creat ratio 1525 mg/g_ creat 0-29 above high normal Vicky l: 0 - 29 Moder ately incre ased: 30 - 300 Sever massimo incre ased: >300 Not Available [facility] ([facility]) [address] [place], [address], 02/29/2024 09:16:55 02/28/20 24 02/28/2024 HbA1c (hemo globi n A1c), blood HbA1c 13.6% Not Available In-Office Order Internal Use Only DO Not Attach Compendium DO Not Attach Compendium, Do Not Delete/merge, [id number] 02/28/2024 15:07:35 06/28/19 25 06/28/2024 LIPID PANEL cholesterol, total 179 mg/dL 100-19 9 Not Available [facility] Department [address] [place], [address], 06/28/2024 22:08:24 06/28/19 25 06/28/2024 LIPID PANEL triglyceride s 98 mg/dL 0-149 Not Available [facility] Department [address] [place], [address], 06/28/2024 22:08:24 06/28/19 25 06/28/2024 LIPID PANEL HDL cholesterol 87 mg/dL 40-999 Not Available [facility] Department [address] [place], [address], 06/28/2024 22:08:24 06/28/19 25 06/28/2024 LIPID PANEL VLDL cholesterol aston 20 mg/dL 5-40 Not Available [facility] Department [address] [place], [address], 06/28/2024 22:08:24 06/28/19 25 06/28/2024 LIPID PANEL LDL chol calc ([facility]) 86 mg/dL 0-99 Not Available [facility] Department [address] [place], [address], 06/28/2024 22:08:24 06/28/19 25 06/28/2024 COMP. METAB OLIC PANEL (14) glucose 154 mg/dL 70-99 above high normal Not Available [facility] Department [address] [place], [address], 06/28/2024 22:08:25 06/28/19 25 06/28/2024 COMP. METAB OLIC PANEL (14) BUN 19 mg/dL 6-24 Not Available [facility] Department [address] [place], [address], 06/28/2024 22:08:25 06/28/19 25 06/28/2024 COMP. METAB OLIC PANEL (14) creatinine 1.64 mg/dL 0.76-1 .27 above high normal Not Available [facility] Department [address] [place], [address], 06/28/2024 22:08:25 06/28/19 25 06/28/2024 COMP. METAB OLIC PANEL (14) eGFR 52 >=60 below low normal Units for eGFR value s are mL/mi n/1.7 3 The eGFR Calcu latio n has not been valid ated for patie nts under the age of 18. If test resul ts are displ ayed for a patie nt under the age of 18, disre devin that value . Not Available [facility] Department [address] [place] [address], [address], 06/28/2024 22:08:25 06/28/19 25 06/28/2024 COMP. METAB OLIC PANEL (14) BUN/creatini ne ratio 11 9-20 Not Available [facility] Department [address] [place], [address], 06/28/2024 22:08:25 06/28/19 25 06/28/2024 COMP. METAB OLIC PANEL (14) sodium 141 mmol/ L 134-14 4 Not Available [facility] Department [address] [place], [address], 06/28/2024 22:08:25 06/28/19 25 06/28/2024 COMP. METAB OLIC PANEL (14) potassium 5.0 mmol/ L 3.5-5. 2 Not Available [facility] Department [address] [place], [address], 06/28/2024 22:08:25 06/28/19 25 06/28/2024 COMP. METAB OLIC PANEL (14) chloride 99 mmol/ L 96-106 Not Available [facility] Department [address] [place], [address], 06/28/2024 22:08:25 06/28/19 25 06/28/2024 COMP. METAB OLIC PANEL (14) carbon dioxide, total 30 mmol/ L 20-29 above high normal Not Available [facility] Department [address] [place], [address], 06/28/2024 22:08:25 06/28/19 25 06/28/2024 COMP. METAB OLIC PANEL (14) calcium 9.4 mg/dL 8.7-10 .2 Not Available [facility] Department [address] [place], [address], 06/28/2024 22:08:25 06/28/19 25 06/28/2024 COMP. METAB OLIC PANEL (14) protein, total 6.7 g/dL 6.0-8. 5 Not Available [facility] Department [address] [place], [address], 06/28/2024 22:08:25 06/28/19 25 06/28/2024 COMP. METAB OLIC PANEL (14) albumin 4.1 g/dL 4.1-5. 1 Not Available [facility] Department [address] [place], [address], 06/28/2024 22:08:25 06/28/19 25 06/28/2024 COMP. METAB OLIC PANEL (14) globulin, total 2.6 g/dL 1.5-4. 5 Not Available [facility] Department [address] [place], [address], 06/28/2024 22:08:25 06/28/19 25 06/28/2024 COMP. METAB OLIC PANEL (14) A/G ratio 2.0 1.2-2. 2 Not Available [facility] Department [address] [place], [address], 06/28/2024 22:08:25 06/28/19 25 06/28/2024 COMP. METAB OLIC PANEL (14) bilirubin, total 0.2 mg/dL 0.0-1. 2 Not Available [facility] Department [address] [place], [address], 06/28/2024 22:08:25 06/28/19 25 06/28/2024 COMP. METAB OLIC PANEL (14) alkaline phosphatase 148 IU/L 44-121 above high normal Not Available [facility] Department [address] [place], [address], 06/28/2024 22:08:25 06/28/19 25 06/28/2024 COMP. METAB OLIC PANEL (14) AST (SGOT) 17 IU/L 0-40 Not Available [facility] Department [address] [place], [address], 06/28/2024 22:08:25 06/28/19 25 06/28/2024 COMP. METAB OLIC PANEL (14) ALT (SGPT) 14 IU/L 0-44 Not Available [facility] Department [address] [place], [address], 06/28/2024 22:08:25 06/28/19 25 06/29/2024 ALBUM IN/CR EATIN INE RATIO ,URIN E creatinine, urine 46.5 mg/dL notest ab. Not Available [facility] ([facility]) [address] [place], [address], 06/29/2024 08:32:29 06/28/19 25 06/29/2024 ALBUM IN/CR EATIN INE RATIO ,URIN E albumin, urine 217.3 ug/mL notest ab. Not Available [facility] ([facility]) [address] [facility], [place], [address], 06/29/2024 08:32:29 06/28/19 25 06/29/2024 ALBUM IN/CR EATIN INE RATIO ,URIN E alb/creat ratio 467 mg/g_ creat 0-29 above high normal Vicky l: 0 - 29 Moder ately incre ased: 30 - 300 Sever massimo incre ased: >300 Not Available [facility] ([facility]) [address] [facility], [place], [address], 06/29/2024 08:32:29 06/28/19 25 06/28/2024 HbA1c (hemo globi n A1c), blood HbA1c 14.9 Not Available In-Office Order Internal Use Only DO Not Attach Compendium DO Not Attach Compendium, Do Not Delete/merge, [id number] 06/28/2024 12:13:03 03/20/20 23 03/20/2023 XR, chest , 2 view No observ ation record ed. [address] [address], [place], [address], 03/21/2023 15:58:08 03/20/20 23 03/20/2023 XR, foot, 2 view No observ ation record ed. [address] [address], [place], [address], 03/21/2023 15:39:32 03/21/20 23 03/20/2023 CT, ankle + foot, w/o contr ast No observ ation record ed. [address] [address], [place], [address], 03/21/2023 15:58:08 03/21/20 23 03/20/2023 CT, foot, w/o contr ast No observ ation record ed. [address] [address], [place], [address], 03/21/2023 15:58:09 11/23/19 24 11/23/2023 CT, abdom en + pelvi s, w/o contr ast No observ ation record ed. [address] [address], [place], [address], 11/28/2023 13:53:52 11/23/19 24 11/23/2023 XR, chest , 2 view No observ ation record ed. [address] [facility] [address], [place], [address], 11/28/2023 13:54:08 11/23/19 24 11/23/2023 CT, abdom en + pelvi s, w/o contr ast No observ ation record ed. [facility] [address] [facility] [address], [place], [address], 12/07/2023 15:04:41 12/09/19 24 12/09/2023 XR, foot No observ ation record ed. [address] [facility] [address], [place], [address], 12/10/2023 11:27:25 04/21/20 24 04/21/2024 XR, shoul annabelle No observ ation record ed. [address] [place], [address], 04/23/2024 13:17:36 Result Notes None recorded. Problems Name Problem SNOMED Code Status Onset Date Resolution Date Notes Provider Name and Address Organization Details Recorded Time Diabetes mellitus 13922949 Active 2017 Not Available [facility] 4 18:56:44 [facility] 60919057 Active 2019 Not Available [facility] 4 18:56:44 Bipolar disorder 49899189 Active 2019 Diagnose d 1996 and not medicati on. Not Available [facility] 4 18:56:44 Chronic renal failure 06306662 Completed 201908/16/2019 AMOS GIRON Attn: Accounting ,[address] [facility], [place], [address] , [facility] 0 12:39:44 Acid reflux 970589886 Active 2019 Not Available [facility] 4 18:56:44 Chronic kidney disease 382774812 Active 2019 Not Available [facility] 4 18:56:44 Amputate d toe 524196195 Active 2020 Not Available [facility] 4 18:56:44 Diabetic peripher al neuropat hy 639223929 Active 2020 Not Available [facility] 4 18:56:44 Cellulit is of lower limb 170608685 Active 2020 Not Available [facility] 4 18:56:44 Retinopa thy due to type 2 diabetes mellitus 022252008 Active 2021 Not Available [facility] 4 18:56:44 Paronych ia of toe of right foot 23999922221 874974 Active 2021 Not Available [facility] 4 18:56:44 Abnormal foot pulse 06933369 Active 2021 Not Available [facility] 4 18:56:44 History of amputati on of right foot 02982108340 388622 Active 2022 Not Available [facility] 4 18:56:44 Anxiety 44022849 Active 2022 Not Available [facility] 4 18:56:44 Poor oral hygiene 611677058 Active 2022 Not Available [facility] 4 18:56:44 Foot ulcer due to type 2 diabetes mellitus 12552459789 00 Active 2022 Not Available [facility] 4 18:56:44 Hyperten sive disorder 87228820 Active 2023 AMOS GIRON Attn: Accounting ,[address] [place], [address] , [facility] 4 06:27:15 Generali zed anxiety disorder 66740852 Active 2024 AMOS GIRON Attn: Accounting ,[address] [place], [address] , [facility] 5 13:06:02 Notes:Some problems listed i n Document: #[id number] could not be added to this patient's chart. Please review this document and add these problems to the patient's chart manually as needed. Problem Notes None recorded. Procedures Surgical History Date Name Laterality Status Provider Name and Address Organization Details Recorded Time Unlisted px foot/toes completed Santo Agrawal [place] - [facility] 05/27/2016 11:43:10 Imaging Results None recorded. Procedure Notes None recorded. Medical Equipment None Reported. Allergies No known drug allergies Medications Name Sig Start Date Stop Date Status Note LastModified by Organization Details LastModified Time dicloxacill in 500 mg capsule 01/24 completed Not Available Not Available Not Available metformin 500 mg tablet TAKE ONE TABLET BY MOUTH TWICE DAILY DIRECTED 10/18 completed Not Available Not Available Not Available clindamycin HCl 300 mg capsule 02/27 completed Not Available Not Available Not Available ammonium lactate 12 % lotion 01/13 completed Not Available Not Available Not Available atorvastati n 10 mg tablet Take 1 tablet every day by oral route at dinner for 30 days. 08/15 completed Not Available Not Available Not Available lisinopril 20 mg-hydrochl orothiazide 12.5 mg tablet Take 1 tablet every day by oral route for 90 days. 2024 active Not Available Not Available Not Avai lable famotidine 40 mg tablet Take 1 tablet every day by oral route. 09/11 completed Not Available Not Available Not Available prednisone 20 mg tablet 10/25 completed Not Available Not Available Not Available sertraline 100 mg tablet Take 1 tablet every day by oral route for 90 days. 2024 active Not Available Not Available Not Avai lable glipizide ER 5 mg tablet, extended release 24 hr Take 1 tablet every day by oral route as directed for 30 days. 08/15 completed Not Available Not Available Not Available Lantus U-100 Insulin 100 unit/mL subcutaneou s solution ADMINISTE R 40 UNITS UNDER THE SKIN EVERY DAY 2024 active Not Available Not Available Not Avai lable amlodipine 5 mg tablet Take 1 tablet every day by oral route as directed for 30 days. 08/15 completed Not Available Not Available Not Available divalproex 500 mg tablet,wil yed release Take 1 tablet every day by oral route as directed for 30 days. 08/15 completed Not Available Not Available Not Available omeprazole 40 mg capsule,del ayed release Take 1 capsule every day by oral route before meals for 30 days. 08/15 completed Not Available Not Available Not Available acetaminoph en 500 mg tablet 06/28 completed Not Available Not Available Not Available pantoprazol e 20 mg tablet,wil yed release TAKE 1 TABLET BY MOUTH EVERY DAY active Not Available Not Available No t Available clonidine HCl 0.2 mg tablet Take 1 tablet twice a day by oral route as directed for 30 days. 08/15 completed Not Available Not Available Not Available famotidine 20 mg tablet active Not Available Not Available Not Available amlodipine 10 mg tablet TAKE 1 TABLET BY MOUTH EVERY DAY 09/27 completed Not Available Not Available Not Available cephalexin 500 mg capsule Take 1 capsule every 8 hours by oral route for 5 days. 09/11 completed Not Available Not Available Not Available pantoprazol e 40 mg tablet,wil yed release TAKE 1 TABLET BY MOUTH EVERY 12 HOURS 03/10 completed Not Available Not Available Not Available simvastatin 20 mg tablet Take 1 tablet every day by oral route at bedtime. 2024 active Not Available Not Available Not Avai lable ranitidine 150 mg tablet Take 1 tablet twice a day by oral route as directed for 30 days. 01/13 completed Not Available Not Available Not Available buspirone 10 mg tablet TAKE 1 TABLET BY MOUTH TWICE DAILY 2024 active Not Available Not Available Not Avai lable lisinopril 10 mg tablet one pill daily by mouth 09/27 completed Not Available Not Available Not Available metoprolol tartrate 50 mg tablet Take 1 tablet twice a day by oral route for 90 days. 2024 active Not Available Not Available Not Avai lable omeprazole 20 mg capsule,del ayed release TAKE 1 CAPSULE BY MOUTH EVERY DAY DIRECTED 05/15 completed Not Available Not Available Not Available hydrochloro thiazide 25 mg tablet TAKE 1 TABLET BY MOUTH EVERY DAY active Not Available Not Available No t Available lisinopril 10 mg-hydrochl orothiazide 12.5 mg tablet Take 1 tablet every day by oral route for 30 days. 05/15 completed Not Available Not Available Not Available levofloxaci n 750 mg tablet 04/26 completed Not Available Not Available Not Available SSD 1 % topical cream APPLY A 1/16 INCH (1.5 MM) THICK LAYER TO ENTIRE BURN AREA BY TOPICALRO CAHUILLA 2 TIMES PER DAY active Not Available Not Available No t Available ondansetron 4 mg disintegrat ing tablet 06/28 completed Not Available Not Available Not Available sertraline 50 mg tablet Take 1 tablet every day by oral route for 30 days. active Not Available Not Available No t Available doxycycline hyclate 100 mg tablet 04/26 completed Not Available Not Available Not Available glipizide 5 mg tablet TAKE 1 TABLET BY MOUTH EVERY DAY 08/28 completed Not Available Not Available Not Available Cough Syrup DM 10 mg-100 mg/5 mL 10/25 completed Not Available Not Available Not Available metoprolol tartrate 25 mg tablet 09/11 completed Not Available Not Available Not Available glipizide 01/24 completed Not Available Not Available Not Available Januvia 50 mg tablet TAKE 1 TABLET BY MOUTH ONCE DAILY DIRECTED 08/15 completed Not Available Not Available Not Available hydrochloro thiazide 12.5 mg tablet TAKE 1 TABLET BY MOUTH EVERY DAY 08/28 completed Not Available Not Available Not Available Lantus Solostar U-100 Insulin 100 unit/mL (3 mL) subcutaneou s pen Inject 25 units every day by subcutane ous route at bedtime. 09/03 completed Not Available Not Available Not Available Lantus Solostar U-100 Insulin 25 units 09/03 completed Not Available Not Available Not Available TRUEplus Insulin 0.5 mL 31 gauge x 5/16 syringe USE TO INJECT INSULIN AT BEDTIME active Not Available Not Available No t Available alogliptin 12.5 mg tablet Take 1 tablet every day by oral route after meals for 30 days. 08/15 completed Not Available Not Available Not Available Jardiance 25 mg tablet TAKE 1 TABLET BY MOUTH EVERY DAY 06/28 completed Not Available Not Available Not Available Ozempic 0.25 mg or 0.5 mg (2 mg/1.5 mL) subcutaneou s pen injector Inject 0.25 mg every week by subcutane ous route. 02/27 completed Not Available Not Available Not Available Steglatro 15 mg tablet Take 1 tablet every day by oral route as directed for 30 days. 08/15 completed Not Available Not Available Not Available Vitals Date Recorded Body height Body mass index (BMI) Body weight Heart rate Oxygen saturation Oxygen saturation in Arterial blood by Pulse oximetry Systolic blood pressure Diastolic blood pressure Provider Name and Address Organization Details Last Updated DateTime 5 180.98 cm 28.4 kg/m2 51340.4 4 g 79 /min 99 % 99 % 160 mm[Hg] 101 mm[Hg] Sandy Lackey MA [facility] 5 11:52:28 Date Recorded Body weight Body mass index (BMI) Body height Systolic blood pressure Diastolic blood pressure Provider Name and Address Organization Details Last Updated DateTime 09/27/2022 87049.98 g 29.4 kg/m2 180.98 cm 118 mm[Hg] 64 mm[Hg] Sandy Lackey MA [facility] 3 10:58:34 Date Recorded Body height Body mass index (BMI) Body weight Heart rate Oxygen saturation Oxygen saturation in Arterial blood by Pulse oximetry Systolic blood pressure Diastolic blood pressure Provider Name and Address Organization Details Last Updated DateTime 3 180.98 cm 29.6 kg/m2 14737.7 7 g 72 /min 99 % 99 % 110 mm[Hg] 60 mm[Hg] Sandy Lackey MA [facility] 3 11:49:59 Date Recorded Body height Body mass index (BMI) Body weight Heart rate Oxygen saturation Oxygen saturation in Arterial blood by Pulse oximetry Systolic blood pressure Diastolic blood pressure Provider Name and Address Organization Details Last Updated DateTime 4 180.98 cm 26.3 kg/m2 92386.5 5 g 80 /min 97 % 97 % 157 mm[Hg] 88 mm[Hg] Sandy Lackey MA [facility] 4 14:53:25 Date Recorded Body height Body mass index (BMI) Body weight Body temperature Oxygen saturation Oxygen saturation in Arterial blood by Pulse oximetry Heart rate Systolic blood pressure Diastolic blood pressure Provider Name and Address Organization Details Last Updated DateTime 3 180.98 cm 30.1 kg/m2 64859.2 4 g 98.2 [degF] 98 % 98 % 92 /min 117 mm[Hg] 78 mm[Hg] Melanie Light MA [facility] 3 16:13:45 Social History Question Answer Notes LastModified by Organizat ion Details LastModified Time Tobacco Smoking Status Never Smoker ROSANNA Liriano, [facility] 08/16/2019 10:40:30 Do You Have An Advance Directive? No Information not available 01/13/2018 What Is Your Level Of Caffeine Consumption? Moderate Coffee Information not available 05/15/2020 How Much Tobacco Do You Chew? None Information not available 01/13/2018 In The 14 Days Before Symptom Onset, Have You Had Close Contact With A Laboratory-confir med COVID-19 While That Case Was Ill? No Information not available 08/28/2021 In The 14 Days Before Symptom Onset, Have You Had Close Contact With A Person Who Is Under Investigation For COVID-19 While That Person Was Ill? No Information not available 08/28/2021 Have You Been To An Area Known To Be High Risk For COVID-19? No Huang Information not available 08/28/2021 What Type Of Diet Are You Following? DIABETIC Information not available 01/13/2018 Which Illicit Or Recreational Drugs Have You Used? None Information not available 10/26/2019 Education 2 Year College Information not available 01/13/2018 Hard Of Hearing Or Deaf In One Or Both Ears? No Information not available 01/13/2018 Legally Blind In One Or Both Eyes? No Information no t available 01/13/2018 Live Alone Or With Others? With Others Information not available 08/16/2019 Marital Status Informatio n not available 01/13/2018 What Was The Date Of Your Most Recent Tobacco Screening? 06/28/2024 Information not available 06/28/2024 How Many Children Do You Have? 3 Information not available 08/16/2019 Seat Belts Used Routinely Yes Information not available 01/13/2018 Smoke Alarm In Home Yes Information not available 01/13/2018 Are You Passively Exposed To Smoke? Yes Information no t available 08/16/2019 How Much Tobacco Do You Smoke? No Information not available 08/16/2019 General Stress Level Medium Information not available 08/16/2019 Do You Use Sunscreen Routinely? No Information not available 01/13/2018 On What Date Was Tobacco Cessation Counseling Provided? 06/28/2024 Information not available 06/28/2024 How Many Years Have You Smoked Tobacco? 0 Information not available 10/26/2019 Sex: Male Functional Status Question Answer Note LastModified by Organizat ion Details LastModified Time What is your level of alcohol consumption? None Information not available 08/16/2019 Do you or have you ever used smokeless tobacco? Never used smokeless tobacco Information not available 08/16/2019 Are you currently employed? Yes Information not available 08/16/2019 Are you able to care for yourself? 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 Never used electronic cigarettes Information not available 10/26/2019 What is your exercise level? Occasional Information not available 05/15/2020 Mental Status None recorded. Family History Relationship Description Onset Age of this Age Resolved Age Notes LastModified by Organization Details LastModified Time Father No current problems or disability Not available 11/2017 10:29:29 Mother No current problems or disability Not available 11/2017 10:29:29 Notes:01/13/18 pt adopted, f amily Hx unknown, cb-rma Medical History Condition Response Coronary Artery Disease N Other Y High Blood Pressure N Atrial Fibrillation N Thyroid Problems N Kidney or Bladder Problems N GI Problems N Depression N COPD N Blood Clots N Skin Problems N Eating Disorder N Anemia N Heart Attack (AK) N Anxiety Disorder N Diabetes Y Muscle, Joint, or Bone Problems N Seizures/Epilepsy N Acid Reflux (GERD) N Cancer N Stroke N Asthma N Allergies N ADHD N Substance Abuse N High Cholesterol N Hepatitis N Liver Disease N Schizophrenia N Headaches N Heart Failure N Osteoporosis N Immunizations Vaccine Type Date Status Note Provider Nam e and Address Organization Details Recorded Time Pneumococcal conjugate PCV20, polysaccharide TJL851 conjugate, adjuvant, PF 4 completed AMOS GIRON Attn: Accounting,[address], [place], [address], [facility] 02/29/2024 06:43:34 Past Encounters Encounter ID Performer Location Encounter Start Date Encounter Closed Date Diagnosis/Indication Diagnosis SNOMED-CT Code Diagnosis ICD10 Code Diagnosis Note [id number] MD [facility] (Adult Med) [address] [place] [id number] 05/27/2016 10:56:02 06/02/2016 10:28:10 Diabetes mellitus 82642456 E11.59 Chronic ob structive pulmonary disease 94031331 J44.9 Ex-smoker 4916570 Z87.89 1 [id number] Katlyn Everett MD [facility] (Adult [facility]) [address] [place] [id number] 01/24/2017 12:26:23 01/25/2017 10:34:00 Type 2 diabetes mellitus 30267039 E11.9 Diabetic diet, exercise. Administra tion of influenza vaccine 57061679 Z23 Patient refuses. [id number] Katlyn Everett MD [facility] (Adult Med) [address] [place] [phone] 07/15/2017 12:23:43 07/15/2017 13:22:30 Type 2 diabetes mellitus 25042811 E11.9 Diabetic diet, exercise. Blood sugar is 153 mg% after meal today in office. Essential hypertension 81265324 I10 BP is well controlled , on clonidine 0.2 mg twice/day. [id number] MD [facility] (Adult Med) [address] [place] [phone] 10/18/2017 16:28:56 10/19/2017 10:11:39 Acute kidney injury 63840661 N17.9 Type 2 reji betes mellitus 04052010 E11.9 Diabetic diet, exercise. Blood sugar is 153 mg% after meal today in office. [id number] MD [facility] (Adult Med) [address] [place] [phone] 10/28/2017 15:44:07 10/31/2017 11:40:50 Type 2 diabetes mellitus 17777273 E11.9 Diabetic diet, exercise. Blood sugar is 153 mg% after meal today in office. Blood sugar non-fastin g is 150 mg% 10-28-2017 , he is informed, will add jardiance as he requested. Had retinopath y operation recently. Acid reflux 141028172 K2 1.9 Essential hypertension 48087390 I10 BP is well controlled , on clonidine 0.2 mg twice/day. Chronic renal failure 90 532420 N18.9 [id number] Katlyn Everett MD [facility] (Adult Med) [address] [place] [id number] 11/29/2017 17:44:36 11/30/2017 11:12:55 Acid reflux 126862024 K21.9 [id number] Katlyn Everett MD [facility] (Adult Med) [address] [place] [phone] 01/13/2018 10:15:57 01/17/2018 10:22:00 Type 2 diabetes mellitus 82436008 E11.9 Diabetic diet, exercise. Blood sugar is 153 mg% after meal today in office. Blood sugar non-fastin g is 150 mg% 10-28-2017 , he is informed, will add jardiance as he requested. Had retinopath y operation recently.S o far no side effects as he can tell or feel from the medication s he has been on. Jardiance is not covered by his insurance. Will do the CMP 14, HgA1c , lipid and urine albumin due to his retinopath y and stage 1 nephropath y, microvascu lar complicati ons. Essential hypertension 16625532 I10 BP is well controlled , on clonidine 0.2 mg twice/day. Acid reflux 099560228 K2 1.9 Stable. Bipolar disorder 9335648 4 F31.9 Divalproex is temporally prescribed from this office until he sees his psychiatri st. Diabetes mellitus 729234 09 E11.59 He said that he feels so good in the recent years. Chronic renal failure 90 327052 N18.9 Stage 1.discusse d with patient, will refer to nephrology . [id number] AMOS GIRON [facility] [address] [place] [address] 08/16/2019 10:34:53 08/17/2019 11:05:00 Essential hypertension 64928644 I10 BP has been running high, systolic 160 and diastolic 90-110 despite taking amlodipine 10 mg qd and lisinopril 10 mg qd. Will add HCZ 12.5 and patient agrees to monitor BP at home. It may also be elevated as he had infection. Will hvae him come into office after COVID19 settles down. Advised to check BP regularly with a goal of <140/90, if BP consistent ly >140/90, advised to contact clinic Labs at next visit Discussed DASH diet Advised weight loss and diet is best way to control BP Advised 30 minutes of exercise minimum daily Advised tobacco, alcohol, caffeine all increase BP Advised goal for BP is <140/90 Type 2 reji betes mellitus [id number] E11.9 A1C in [facility] was 14. He sent home on Lantus 25 units qhs, and glipizide 5 mg. for BP they started him on lisinopril 10 mg and amlodipine 10 mg . He is eating diabetic diet <45 grams carbs per meal <15 grams carbs per snack. Checking glucose 4x day. Fasting sugar this this am was 87 . 1-2 houRs after meals 90-120, this is WNL - check sugars daily; goal fasting <130 and 1-2 hours after meal <180. call office if sugars falling under 70. Patient aware of hypoglyemi a symptoms. - discussed diet: avoid sugars, pasta, tortillas, bread, rice, potatoes - Excercise 30 min 5x week - diabetic eye exam - foot exam at next visit Acid reflux 258082586 K2 1.9 Stable. Chronic renal failure 90 333978 N18.9 Labs from 2018 show Stage [address] Nieves sent to Dr Collins nephrologfracisco hagen but I did not find any notes from him. Patient does not know what his kidney function is. Hospital put him on Lisinopril so likely that he is not in [place] but need to have kidney function checked. - get records from hospital- f/u in late october for labs- stay hydrated- avoid NSAIDS Bipolar disorder [id number] 4 F31.9 Patient was diagnosed with bipolar disorder in 1995. Has been off medication for >2 years and does not want to start any at this time. He states his is controlled [id number] Lyric Love MD [facility] [address] [place] [address] 10/26/2019 09:41:18 11/08/2019 09:02:28 Essential hypertension 56685342 I10 bp running high, blood sugar running under 150. He said he was not taking the HCTZ, so I increased it to 25 mg and called in once daily in the morning. He will call back next week to let us know how his blood pressure is going. Type 2 reji betes mellitus 47099334 E11.59 discussed low fat, low carb diet, and encouraged exercise. Acid reflux 719198285 K2 1.9 do not lie down for 1-2 hours afer eating or drinking. [id number] Lyric Love MD [facility] [address] [place] [address] 05/15/2020 08:57:36 05/27/2020 07:45:40 Insulin treated type 2 diabetes mellitus 887715937 Z79.4 Type 2 reji betes mellitus 09061310 E11.59 discussed low fat, low carb diet, and encouraged exercise. blood sugars running 78-205 (only 1 time over 200 in last 3 months.) Essential hypertension 53289379 I10 bp running high, blood sugar running under 150. He said he was not taking the HCTZ, so I increased it to 25 mg and called in once daily in the morning. He will call back next week to let us know how his blood pressure is going. Gastroesop hageal reflux disease without esophagitis 149846974 K21.9 [id number] AMOS GIRON [facility] [address] [place] [address] 04/28/2021 14:15:15 04/29/2021 09:41:35 Chronic kidney disease 408447466 N18.9 patient hospitaliz ed due to cellulitis and renal insufficie ncy. He has f/u appointmen t with nephrologi st tomorrow 04/29/21. He is to ask if he is approved to re-start lisinopril . Diabetes mellitus 837450 09 E11.59 Patient diagnosed with DM around 2015. A1C 04/27/21 6.4 ( asked to have this sent to us, she showed it on her phone from [employer]). - check sugars daily; goal fasting <130 and 1-2 hours after meal <180. call office if sugars falling under 70. Patient aware of hypoclycem ic symptoms. - discussed diet: avoid sugars, pasta, tortillas, bread, rice, potatoes - Exercise 30 min 5x week - diabetic eye exam - foot exam at next visit Essential hypertension 91074223 I10 BP has been running high, systolic 140 and diastolic 90-110. He had lisinopril d/c by ER. He see nephrologi st tomorrow and he is to ask if he can restart. I need record of his CMP. Advised to check BP regularly with a goal of <140/90, if BP consistent ly >140/90, advised to contact clinic Labs at next visit Discussed DASH diet Advised weight loss and diet is best way to control BP Advised 30 minutes of exercise minimum daily Advised tobacco, alcohol, caffeine all increase BP Advised goal for BP is <140/90 Cellulitis of lower limb 887626424 L03.119 patient treated at [facility] for left foot cellulitis with keflex. he is here today with boot. His foot has improved and has f/u with podiatry next week. He defers foot exam today. Diabetic p eripheral neuropathy 473397968 E11.40 patient states he cannot feel his toes. He can feel his heel. He does check feet on a regular basis. He does have referral from the hospital to see podiatry set for next week. He has had one toe amputated on right foot. Amputated toe 822053969 Z89.429 patient states he cannot feel his toes. He can feel his heel. He does check feet on a regular basis. He does have referral from the hospital to see podiatry set for next week. He has had one toe amputated on right foot. [id number] AMOS GIRON [facility] [address] [place] [address] 08/28/2021 15:27:54 09/02/2021 09:50:27 Retinopathy due to type 2 diabetes mellitus 067300669 E11.319 patient has hx of retinopath y. Has surgery 4 years ago and has not been back to opthamolog y for DM check. will send referral and he is to call and schedule. Hypertensive urgency [phone] [id number] I16.0 BP 160/110, 170/110 on repeat. Patient denies chest pain, sob, VENTURA, vision changes. States his BP has been this high at home. Will increase dose of metroprolo l to 50mg bid with BP monitoring over the weekend and in office BP check Tuesday. He is instructed to go to ER if CP, SOB, Vision changes, VENTURA develop. Patient agrees. Paronychia of toe of right foot [id number] 9574051 L03.031 first toenail infection with clear drainage. toenail partly detached from nailbed. Starting abx Multiple b enign melanocytic nevi 532740795 D22.9 Patient with multiple moles >50. would benefit from derm exam. Had one years ago and states all normal. HIV screening 849856394 Z11.4 Obesity 253249941 E66.9 Abnormal foot pulse 6943 7003 R09.89 diminished b/l posterior tib pulse [id number] AMOS GIRON [facility] [address] [place] [address] 09/11/2021 11:11:12 09/14/2021 08:58:43 Essential hypertension 52071551 I10 BP has been running high, systolic 140 and diastolic 90-110. He saw nephrologi last Tuesday and advised increasing lisinopril to 20mg. will start this today. prescripti on sent. Advised to check BP regularly with a goal of <140/90, if BP consistent ly >140/90, advised to contact clinic Labs at next visit Discussed DASH diet Advised weight loss and diet is best way to control BP Advised 30 minutes of exercise minimum daily Advised tobacco, alcohol, caffeine all increase BP Advised goal for BP is <140/90 Retinopath y due to type 2 diabetes mellitus 828509533 E11.319 patient has hx of retinopath y. Has surgery 4 years ago and has not been back to opthamolog y for DM check. will send referral and he is to call and schedule. Paronychia of toe of right foot [id number] 7961759 L03.031 first toenail infection with clear drainage. toenail partly detached from nailbed. Starting abx Abnormal foot pulse 6943 7003 R09.89 diminished b/l posterior tib pulse Diabetes mellitus 036619 E11.59 Patient diagnosed with DM around 2015. A1C 04/27/21 6.4 and today 7.5%. will ask nephrologi st on starting jardiance v nateglinid e - check sugars daily; goal fasting <130 and 1-2 hours after meal <180. call office if sugars falling under 70. Patient aware of hypoclycem ic symptoms.- discussed diet: avoid sugars, pasta, tortillas, bread, rice, potatoes- Exercise 30 min 5x week- diabetic eye exam- foot exam at next visit [id number] AMOS GIRON [facility] [address] [place] [address] 09/27/2022 10:45:07 09/27/2022 11:52:33 Essential hypertension 56978889 I10 BP 118/64 He saw nephrologfracisco hagen last Tuesday and advised increasing lisinopril to 20mg. will start this today. prescripti on sent. Advised to check BP regularly with a goal of <140/90, if BP consistent ly >140/90, advised to contact clinic Labs at next visit Discussed DASH diet Advised weight loss and diet is best way to control BP Advised 30 minutes of exercise minimum daily Advised tobacco, alcohol, caffeine all increase BP Advised goal for BP is <140/90 Retinopath y due to type 2 diabetes mellitus 843290067 E11.319 patient has hx of retinopath y. Has surgery 5 years ago and has not been back to opthamolog y for DM check. will send referral and he is to call and schedule. Diabetes mellitus 752465 E11.59 Patient diagnosed with DM around 2015. uncontroll ed today. increasing insulin and advosed contacting office in 3 days with BG numbers A1C 9.8% (09/2022) 6.4% (04/27/21) - check sugars daily; goal fasting <130 and 1-2 hours after meal <180. call office if sugars falling under 70. Patient aware of hypoclycem ic symptoms.- discussed diet: avoid sugars, pasta, tortillas, bread, rice, potatoes- Exercise 30 min 5x week- diabetic eye exam- foot exam at next visit Screening for malignant neoplasm of colon 220770983 Z12.11 patient is due for colonoscop yunknown family history, adoptedden ies blood/dark stools Amputated toe 176365608 Z89.429 patient states he cannot feel his toes. He can feel his heel. He does check feet on a regular basis. He does have referral from the hospital to see podiatry set for next week. He has had one toe amputated on right foot. Anxiety 19943155 F41.9 - advised counseling -Patient was educated on his prescribed medication s, rationale for medication s, dosing indication s, adverse reactions, black box warning, dosing indication s, SE -Call center with questions/ concerns. Go to ER or call 911 for crisis (e.g., suicidal behaviors, suicidal ideations, intent or plan emerge). Additional ly, patient has suicide hotline #. - f/u one month - call with questions Poor oral hygiene 466589 009 R46.89 declines dental visit [id number] AMOS GIRON [facility] [address] [place] [address] 10/26/2022 10:46:24 10/26/2022 13:06:57 Anxiety 25822249 F41.9 controlled on current regiment w/o side effects. will continue. Overweight 317358145 E66 .3 [id number] AMOS GIRON [facility] [address] [place] [address] 04/26/2023 15:57:32 04/27/2023 12:56:34 Essential hypertension 65993936 I10 controlled Advised to check BP regularly with a goal of <140/90, if BP consistent ly >140/90, advised to contact clinic Labs at next visit Discussed DASH diet Advised weight loss and diet is best way to control BP Advised 30 minutes of exercise minimum daily Advised tobacco, alcohol, caffeine all increase BP Retinopath y due to type 2 diabetes mellitus 999615735 E11.319 patient has hx of retinopath y. Has surgery 5 years ago and has not been back to opthamolog y for DM check. will send referral and he is to call and schedule. Diabetes mellitus 226086 09 E11.59 not controlled . missed all his f/u appointmen ts. complaint with medication s. Patient denies fam hx of thyroid cancer (he is adopted), personal hx pancreatit is. Medication side effects were reviewed with patient and include CARL[place], pancreatit is, nausea, vomiting, stomach upset. Patient was shown pen and was shown how to clean area, inject pen, and how often to administer . A1C 8.3% (04/2023) 9.8% (09/2022) 6.4% (04/27/21) - check sugars daily; goal fasting <130 and 1-2 hours after meal <180. call office if sugars falling under 70. Patient aware of hypoclycem ic symptoms.- discussed diet: avoid sugars, pasta, tortillas, bread, rice, potatoes- Exercise 30 min 5x week- diabetic eye exam- foot exam at next visit Screening for malignant neoplasm of colon 547748067 Z12.11 patient is due for colonoscop yunknown family history, adoptedden ies blood/dark stools Amputated toe 852726812 Z89.429 patient states he cannot feel his toes. He can feel his heel. He does check feet on a regular basis. He does have referral from the hospital to see podiatry set for next week. He has had one toe (5th metatrsal) amputated on right foot 2019, Dr CASTORENA. Anxiety 11506895 F41.9 - advised counseling -Patient was educated on his prescribed medication s, rationale for medication s, dosing indication s, adverse reactions, black box warning, dosing indication s, SE -Call center with questions/ concerns. Go to ER or call 911 for crisis (e.g., suicidal behaviors, suicidal ideations, intent or plan emerge). Additional ly, patient has suicide hotline #. - f/u one month - call with questions Poor oral hygiene [phone] R46.89 declines dental visitIve given up on my teeth. Foot ulcer due to type 2 diabetes mellitus 5036989437 100 E11.621 seen ER [facility] and has had 03/21/23 debridemen t on left foot plantar surface of 5th metatarsal . . he has hx of right foot toe amputation 5[facility] [place] [facility] [address] Castorena.- podiatry- obtain notes form visit last week Chronic ki dney disease 515805657 N18.9 patient hospitaliz ed due to cellulitis and renal insufficie ncy. He has missed all appointmen ts with nephrologi st. given labs to get done. new referral sent. Hypertensive urgency [phone] [id number] I16.0 BP 160/110, 170/110 on repeat. Patient denies chest pain, sob, VENTURA, vision changes. States his BP has been this high at home. Will increase dose of metroprolo l to 50mg bid with BP monitoring over the weekend and in office BP check Tuesday. He is instructed to go to ER if CP, SOB, Vision changes, VENTURA develop. Patient agrees. [id number] Mark Plata MD [facility] [address] [place] [address] 02/28/2024 14:47:06 02/28/2024 15:42:29 Essential hypertension 32672694 I10 not controlled on Lisinopril -hcz, metoprolol 50mg bidwill refer to cardiology for work up Advised to check BP regularly with a goal of <140/90, if BP consistent ly >140/90, advised to contact clinic Labs at next visit Discussed DASH diet Advised weight loss and diet is best way to control BP Advised 30 minutes of exercise minimum daily Advised tobacco, alcohol, caffeine all increase BP Retinopath y due to type 2 diabetes mellitus 562326406 E11.319 patient has hx of retinopath y. Has surgery 6 years ago and has not been back to opthamolog y for DM check. will send referral and he is to call and schedule. Diabetes mellitus 257702 09 E11.59 not controlled . missed all his f/u appointmen ts. Not checking BG. I need to adjust his insulin dose and he may need mealtime insulin. and patient agree to call me with BG log. A1C 13.6% (02/2024) 8.3% (04/2023) 9.8% (09/2022) 6.4% (04/27/21) Foot exam: 02/2024, abnormal. has diabetic ulcer base of 5th toe left foot. (seeing wound care)Eye Exam: non-compli ance.Alb/C r: orderedSta tin: simvastati n 20mg, may need to increase doseACEi: Lisinopril pneumonia vaccine: 02/2024 Screening for malignant neoplasm of colon 764152449 Z12.11 patient is due for colonoscop yunknown family history, adoptedden ies blood/dark stools Amputated toe 078660969 Z89.429 4th toe on left foot 4R foot 5th toe amputated 2019 patient states he cannot feel his toes. He can feel his heel. He does check feet on a regular basis. He does have referral from the hospital to see podiatry set for next week. Anxiety 83002853 F41.9 - advised counseling -Patient was educated on his prescribed medication s, rationale for medication s, dosing indication s, adverse reactions, black box warning, dosing indication s, SE -Call center with questions/ concerns. Go to ER or call 911 for crisis (e.g., suicidal behaviors, suicidal ideations, intent or plan emerge). Additional ly, patient has suicide hotline #[phone]. - f/u one month - call with questions Poor oral hygiene 069668 009 R46.89 declines dental visit Chronic ki dney disease 440600539 N18.9 He has missed all appointmen ts with nephrologi st. given labs to get done. new referral sent. Overweight 157702062 E66 .3 26.3 Administra tion of pneumococcal vaccine 85651645 Z23 agrees today to pneumonia vaccine Influenza vaccination declined 650704091 Z28.21 Foot ulcer due to type 2 diabetes mellitus 1786516463 100 E11.621 shallow ulcer on left foot plantar surface of 5th metatarsal . . he has hx of right foot toe amputation [facility]th [facility]at[facility] [place] [facility] [address] Castorena. Recent 4th toe amputation left foot 12/2023. Following Dr Castorena for this diabetic ulcer. His toe amputation site has healed.- podiatry- obtain notes form visit last week [id number] Mark Plata MD [facility] [address] [place] [address] 06/28/2024 11:38:54 06/28/2024 12:24:28 Diabetes mellitus 75822872 E11.59 not controlled . missed all his f/u appointmen ts.injecti ng nightly 35 increase to 40 Not checking BG. I need to adjust his insulin dose and he may need mealtime insulin but not checking glucose. had agreed to bring me glucose log but never brought it in. I educated him on CKD, HF, STROKE, [place], . He is given xray for his great toe due to open wound, no signs of secondary infection. sent to wound care. stressed importance of BG control. being sent to endocrinol ogist at this time. would benefit from pump. A1C 13.6% (02/2024) 8.3% (04/2023) 9.8% (09/2022) 6.4% (04/27/21) Foot exam: 06/2024, abnormal. has great toe laceration without surroundin g erythema or drainageEy e Exam: non-compli ance.Alb/C r: abnormal, orderedSta tin: simvastati n 20mg, may need to increase doseACEi: Lisinopril pneumonia vaccine: 02/2024 Anxiety 03265936 F41.9 - advised counseling -Patient was educated on his prescribed medication s, rationale for medication s, dosing indication s, adverse reactions, black box warning, dosing indication s, SE -Call center with questions/ concerns. Go to ER or call 911 for crisis (e.g., suicidal behaviors, suicidal ideations, intent or plan emerge). Additional ly, patient has suicide hotline #. - f/u one month - call with questions Essential hypertension 45715830 I10 not controlled on Lisinopril -hcz, metoprolol 50mg bidwill refer to cardiology for work up Advised to check BP regularly with a goal of <140/90, if BP consistent ly >140/90, advised to contact clinic Labs at next visit Discussed DASH diet Advised weight loss and diet is best way to control BP Advised 30 minutes of exercise minimum daily Advised tobacco, alcohol, caffeine all increase BP Positive s creening for depression on PHQ-9 (Patient Health Questionnaire 9) 9776163158 22533 Z13.31 phq 8increasin g sertraline Microalbuminuria 6597973 06 R80.9 repeatnon- compliant with nephrology f/u Skin ulcer of toe due to diabetes mellitus type 2 [id number] 8116818 E11.621 has great toe laceration without surroundin g erythema or drainagese e attached picture in chartgiven wound care referralst ressed controllin g BGneed BG logf/u Foot callus 651305768 L8 4 large great toe callussent 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 Overweight 166474866 E66 .3 26.3 Health Concerns Section Related Observation LastModified by Organization Detai ls LastModified Time None Recorded Concern Status LastModified by Organization Details LastModified Time None Recorded Advance Directives Directive N: Payers Insurance Date Sequence Insurance Name Policy Number Policy Duggan Covered Member ID Duggan Member ID Guarantor Name 2021 2 [facility] [id number] Dejan Di [id number] Dejan Villalapndo Di 2021 1 [place] [facility] Dejan Di [id number] Dejan Kwasi Di 2021 1 [place] [facility] Dejan Di [id number] Dejan Kwasi Di 08/07/2024 1 [facility] - DOS ON OR AFTER 20 (MEDICAID REPLACEMENT - HMO) Dejan Sevilla [id number] Dejan Kwasi Di 2021 2 [facility] [id number] Dejan Di [id number] Dejan Kwasi Di 2021 1 [facility] - BLUE CHOICE (PPO) [id number] Dejan Di [id number] Dejan Kwasi Di 2021 1 [facility] (MEDICAID HMO) [id number] Dejan Di [id number] Dejan Kwasi Di 2021 1 [facility] - DOS PRIOR TO 2020 (MEDICAID REPLACEMENT - HMO) Dejan Sevilla [id number] Dejan Sevilla Notes Date Note Type Note Provider Name and Address Organization Details Recorded Time 09/27/2022 text/html Dejan is a 47 yo Controlled DM2, hx retinopathy s/p laser surgery, neuropathy, amputation right foot toe, CKD here for refills and anxiety He has been complaint with all medication. No new hospitalizations. Has nephrology f/u in January. 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 He denies cp, sob, palpitations Patient states he hates leaving his home. Having much anxiety and affecting QOL. Around age 20 he was diagnosed bipolar, they had me strapped down in [facility] hospital. He says it was one episode and he was on seroquel and sertraline. He has not been on medication since that time. He states he thinks he was misdiagnosed. Patient is adopted and does not know family history. Patient went to [facility] one month ago for vomiting. On admission he was in DKA and stayed 3-4 days. He was stabilized and sent home. BP during stay were elevated and he was given metoprolol 25mg bid . nephrology: Patient saw Dr Weeks on 04/29/21 . Will see him again in 3 weeks.04/17/21 Renal Sono Bilateral atrophy, bladder diffuse bladder wall thickening. DM: glucose has been 100-125. checks 2-3 times per day. checks it before meals. He checks feet daily and still has constant tingling R>L. patient denies CP, SOB, VENTURA, vision changes. retinopathy: had surgery AMOS GIRON Attn: Accounting[address] [place], [address], [facility] 09/29/2022 14:05:32 10/26/2022 text/html Dejan is a 47 yo Controlled DM2, hx retinopathy s/p laser surgery, neuropathy, amputation right foot toe, CKD here for anxiety f/u Dejan states he is doing very well on sertraline. I feel like I did before I started working. For two days he felt more jittery on sertraline but now denies any other side effects. His reports, thank you, he is no longer irritable and we have been able to get our of the house. He would like to continue current dose. denies SI/HI, delusions, sx of haley. taking inulin 30 units now and all morning numbers <130. He has been complaint with all medication. Has nephrology f/u in January. He did not follow up with infantry weapons officer, vascular or opthamology. He denies cp, sob, palpitations AMOS GIRON Attn: [address] [facility], [place], [address], [facility] 10/26/2022 14:22:42 04/26/2023 text/html Dejan is a 47 yo Uncontrolled DM2, hx retinopathy s/p laser surgery, neuropathy, amputation right foot toe, CKD here for ER f/u pt last seen 10/2022 and failed to f/u here, with nephrology, opthamology, podiatry, vascular. seen ER [facility] for left foot ulcer dx cellulitis in ER. no osteomyelitis. had 03/21/23 debridement on left foot plantar surface of 5th metatarsal. He has hx of right foot toe amputation 5th metatarsal [facility] [address] Castorena. Saw [facility] wound care last week and will return in one month. healing well and next appointment. applying silvadene. taking inulin 30 units now and all morning numbers <130. He has been complaint with all medication. .He denies cp, sob, palpitations AMOS GIRON Attn: Accounting[address] [facility], [place], [address], [facility] 04/27/2023 08:27:50 02/28/2024 text/html Dejan is a 48 yo M pmhx Uncontrolled DM2, hx retinopathy s/p laser surgery, neuropathy, hx of amputation x2 toes, CKD here with for ER f/u last seen 04/2023 and has had three no shows prior to this appointment. At last visit he was sent to podiatry, nephrology and opthamology and did not go to any of his visits. He states he has cologuard and did not complete it. He has not been checking his BG at home. He admits to missing some days of insulin. GLP was added at last visit and was never started. On chart review, he has lost 30 lbs since last visit, I am working now so can't be eating all the time. He denies any sweet drinks but does admit to eating excess carbs. In December he was admitted at [facility] for left 4th toe osteomyelitis. He has been following wound car with Dr Castorena [facility]. He has one more visit with them. says she has been applying silvadene to it. He feels anxiety has been controlled. denies depression. PHQ0. today he denies cp, sob, palpitations AMOS GIRON Attn: Accounting,[address] [facility], [place], [address], [place] 02/29/2024 06:44:35 06/28/2024 text/html Dejan is a 48 yo M pmhx Uncontrolled DM2, hx retinopathy s/p laser surgery, neuropathy, hx of amputation x2 toes, CKD here with for ER f/u and glucose Apr 21, 2024 he was admitted to [facility] for my mental health and they kept me for 16 days. He has not followed up with psych. He needs buspar filled. they did not cahnge sertraline dose. He denies si/hi today. During hospital visit he says they controlled his BG/ States mental health is much better. He says he will control his BG once mental health improved. BLAISE 5 PHQ 8 TODAY. He is open to increasing his sertraline. he is open to setting up f/u chestnut. At last visit he was sent to podiatry, nephrology and opthamology and did not go to any of his visits. He states he has cologuard and did not complete it. He has not been checking his BG at home. He admits to missing some days of insulin but takes 35 most day.He wants a pump. He denies any sweet drinks but does admit to eating excess carbs. In December 2023 he was admitted at [facility] for left 4th toe osteomyelitis. He says he has callus on R great toe. today he denies cp, sob, palpitations AMOS GIRON Attn: Accounting,[address] [facility] [facility], [place], [address], [facility] - [facility] 06/28/2024 13:09:41
[2024-10-19 14:11] LABS: Alanine Aminotransferase 17 U/L (6-50); Albumin Level 4.6 g/dL (3.5-5.1); Alkaline Phosphatase 125 U/L (38-126); Anion Gap 30 mmol/L (4-12); Aspartate Amino Transferase 27 U/L (17-59); Bilirubin,Total 0.7 mg/dL (0.2-1.3); Blood Urea Nitrogen 40 mg/dL (9-20); Calcium 9.9 mg/dL (8.4-10.2); Carbon Dioxide 14 mmol/L (22-30); Chloride 94 mmol/L (98-107); Estimated CRCL calculation 36 ml/min; Estimated Glomerular Filt Rate 27; Glucose 511 mg/dL (65-110); Magnesium 2.3 mg/dL (1.6-2.3); Phosphorus 4.9 mg/dL (2.5-4.5); Potassium 4.3 mmol/L (3.4-5.0); Sodium 138 mmol/L (137-145); Total Protein 8.4 g/dL (6.3-8.2)
[2024-10-19 14:27] LABS: Hemoglobin A1C. > 14.0 % (<5.7)
[2024-10-19 14:31] LABS: Alveolar/Arterial O2 Gradient 28.1 mmHg; Base Excess ABG -8.1 mEq/l (+/-2.0); Carboxyhemoglobin 0.6 % THb (0-2.0); Device ROOM AIR; Fractional Inspired Oxygen 21 %; HCO3 ABG 14.8 mEq/l (22.0-26.0); Methemoglobin ABG 0.1 %THb (0-1.5); Modified Allen's Test Pass; Oxygen Content ABG 18.7 %vol (16.0-22.0); Oxygen Saturation ABG 97.2 % (95.0-100.0); Oxyhemoglobin 96.2 % THb (90.0-100.0); PCO2 ABG 24.6 mmHg (35.0-45.0); PO2 ABG 92.2 mmHg (80.0-100.0); PO2 FiO2 Ratio Arterial Blood 4.39 %; Reduced Hemoglobin 3.1 %THb (0-5.0); Site Drawn LEFT RADIAL; Total Hemoglobin 13.8 g/dL (12.0-18.0); pH ABG 7.397 (7.350-7.450)
--- NOTE | 2024-10-19 15:09 | PCDIET ---
Nutrition note: Referral received for DKA admission. Pt is not in a room available to see before end of business day. Will assess and educate at follow up.
[2024-10-19] MEDS: INSULIN HUMAN REGULAR (*BKC) 100 UNITS in SODIUM CHLORIDE 0.9% IV 99 ML 8 UNITS IV CONT (15:24)
[2024-10-19] MEDS: INSULIN HUMAN REGULAR (*BKC) 100 UNITS/ML 12.1 UNITS IV PUSH (15:26)
[2024-10-19] MEDS: metroNIDAZOLE 500 MG/ISO 100ML 500 MG/100 ML BAG 100 MG IVPB ×2 (15:33→21:09)
[2024-10-19] MEDS: CEFEPIME 2 GM/NS 50 ML 2 GM/50 ML BAG IVPB (15:33)
[2024-10-19 15:42] LABS: Reflex Lactic Acid Yes or No Add Lactic
[2024-10-19 15:49] LABS: Anion Gap 32 mmol/L (4-12); Blood Urea Nitrogen 38 mg/dL (9-20); Carbon Dioxide 14 mmol/L (22-30); Chloride 95 mmol/L (98-107); Estimated CRCL calculation 39 ml/min; Estimated Glomerular Filt Rate 30; Glucose 479 mg/dL (65-110); Potassium 4.2 mmol/L (3.4-5.0); Sodium 141 mmol/L (137-145)
[2024-10-19 16:26] LABS: Lactic Acid 2.1 mmol/L (0.7-2.0)
[2024-10-19 16:39] LABS: Glucose Point of Care 257 mg/dl (65-105)
[2024-10-19] MEDS: VANCOMYCIN 1,250 MG/NS 250 ML 1,250 MG/250 ML BAG 166.67 MG IVPB (16:46)
[2024-10-19 16:47] LABS: Add Urine Microscopic? YES; Appearance Urine Clear (Clear); Bacteria Urine None Seen /hpf; Bilirubin Urine Negative (Negative); Blood Urine 1+ (Negative); Color Urine Yellow (Yellow); Glucose Urine UA 3+ mg/dL (Negative); Ketones Urine 4+ mg/dL (Negative); Leukocyte Esterase Ur Negative LEU/UL (Negative); Nitrate Urine Negative (Negative); Protein Urine 2+ mg/dL (Negative); RBC Urine 0-2 /hpf (0-2); Specific Grav Ur 1.023 (1.001-1.035); Squamous Epithelial Cell Urine None Seen /hpf (Few); Urobilinogen Urine 0.2 mg/dL (<2.0); WBC Urine 0-5 /hpf (0-3)
[2024-10-19 17:08] VITALS: BP 185/98; PULSE 116; RESP 18; TEMP 36.2; O2SAT 99
[2024-10-19 17:11] LABS: MRSA (PCR) NOT DETECTED (NOT DETECTE)
--- NOTE | 2024-10-19 17:11 | P.HP_ITS ---
H&P: HPI History of Present Illness Date/Time: 10/19/24 17:11 Chief Complaint: Nausea vomiting diarrhea Narrative: 49-year-old male with diabetes type 2, diabetic ulcers, hypertension, CKD, neuropathy with amputation of toes, noncompliant with medications presents the hospital with 3 days of nausea vomiting and diarrhea. HPI is limited as patient is noninteractive only a 6 yes or no to questions. Patient has been vomiting for the last 3 days unable to take his medications. Still taking his Lantus. Patient does not check his blood sugar at home. In the ED is leukocytosis of 14.4, carbon dioxide 14, anion gap of 32, BUN of 38, creatinine of 2.34 baseline being around 1.7, glucose of 479, hemoglobin A1c over 14, lactic acid 3.2 followed by 2.1, phosphorus is 4.9, beta hydroxybutyrate 10.10 UA positive for 4+ ketones 3+ glucose, negative for infection. Left foot CT Progression of likely ongoing chronic osteomyelitis at the base of the fifth proximal phalanx at the head and neck of the fifth metatarsal. And Chronic erosions at the head of the first proximal phalanx and at the base of the fourth metatarsal with location and appearance most consistent with gout. Right foot CT Ulceration seen in the area of the interphalangeal joint of the big toe with fat stranding seen in the area. Fat stranding also seen in the area of the calcaneus subcutaneous tissues. Minimal soft tissue density is seen deep to the plantar fascia. This may be infectious.. EKG shows sinus rhythm with incomplete bundle branch block rate of 62, QTC of 440. Patient being admitted to the ICU with DKA and diabetic foot wound infection. Review of Systems Review of Systems: 12 systems were reviewed and are negativ e except for as per HPI. [facility] Past Medical History Medical History (Updated 10/19/24 @ 22:43 by Sadia Shannon, [employer]) Diastolic dysfunction Echocardiogram 07/2021: Grade 1 diastolic dysfunction, no intracardiac shunt with agitated saline, EF 65-70, no valvular abnormalities, mild concentric increased left ventricular wall thickness Chronic anemia Diabetic gastroparesis Diabetic retinopathy History of GI bleed Secondary to esophagitis noted on EGD in November 2017. History of suicide attempt Chronic kidney disease, stage 3 Baseline creatinine appears to be between 1.8-2 Hypertension History of osteomyelitis Right 5th toe, status post amputation. Bipolar disorder GERD (gastroesophageal reflux disease) Surgical History Surgical History (Updated 05/17/24 @ 10:52 by Aleksandra Ruiz MA) Amputation of toe of left foot 12/09/23 Open amputation left 4th toe Dr. Dumont Status post amputation of toe of right foot Right 5th toe amputation including the distal metatarsal in 2018. Open amputation of right 5th metatarsal in July 2019 for osteomyelitis of right 5th metatarsal stump. Family History Family History Other Adopted Social History Social History (Updated 05/17/24 @ 10:53 by Aleksandra Ruiz MA) Social History: The patient lives in [place] with his and their 3 children, 1 biological daughter and 2 step children. 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 He is a previous smoker, both cigars and cigarettes. He does smoke cannabis. He denies alcohol use. , Pari, is his surrogate decision maker and he wishes to be a full code. Smoking packs per day: 1 Smoking cigarettes per day: 20.0 Years smoked: 20 Smoking pack-years: 20.00 Smoking status: Former smoker Second hand tobacco smoke exposure: Yes Smoking end date: 10/16/24 Additional smoking assessment comments: Alcohol intake: never Substance use: never Substance use type: does not use Last use: 03/20/23 Do You Feel Safe in your Home?: Yes Lack of Transportation: YES Lack of Food: Never True Current Housing: Decline to Answer Concerned About Future Housing: Decline to Answer Difficulty Paying Gas/Electric Bills: Decline to Answer Difficulty Paying for Meds: Decline to Answer Currently Unemployed: Decline to Answer Education: Associate Degree Difficulty w/ Childcare or Family Care: Decline to Answer Gender identity (if verbalized by the patient): Male Spiritual care concerns: No Agree to blood products: Yes Meds Home Medications and Allergies Home Medications ?Medication ?Instructions ?Recorded ?Confirmed ?Type metoprolol tartrate 50 mg tablet 50 mg PO BID 03/21/23 10/19/24 History omeprazole 20 mg capsule,delayed 20 mg PO DAILY 03/21/23 10/19/24 History release sertraline 50 mg tablet 100 mg PO DAILY 03/21/23 10/19/24 History simvastatin 20 mg tablet 20 mg PO HS 03/21/23 10/19/24 History insulin glargine 100 unit/mL 40 unit (0.4 mL) subcut QHS #10 mL 12/11/23 10/19/24 Rx subcutaneous solution (Lantus U-100 Insulin) buspirone 15 mg tablet 10 mg PO TID 10/19/24 10/19/24 History empagliflozin 25 mg tablet mg 10/19/24 History (Jardiance) lisinopril 20 tablet PO DAILY 10/19/24 History mg-hydrochlorothiazide 12.5 mg tablet sertraline 100 mg tablet 100 mg PO Q24H 10/19/24 10/19/24 History Allergies Allergy/AdvReac Type Severity Reaction Status Date / Time bee stings Allergy Unknown Unknown Uncoded 10/19/24 13:12 Vital Signs Vital Signs - 24 hr 10/19/24 13:17 10/19/24 17:08 Temperature 98.0 F 97.1 F L Pulse Rate 139 H 116 H Respiratory Rate 15 18 Blood Pressure 185/157 H 185/98 H Pulse Oximetry 100 99 Oxygen Delivery Room Air Exam Narrative: General: ill appearing, appears stated age. HEENT: normocephalic, atraumatic. Mucous membranes moist. EOMI, PERRLA, bilateral sclera anicteric, no conjunctival injection. Neck supple without JVD, lymphadenopathy, or bruit. Respiratory: clear to ascultation bilaterally. No rales/rhonic/wheezes. Cardiovascular: Regular rate and rhythm, normal S1-S2 upon ascultation. No murmurs, rubs, or clicks. PMI is nondisplaced, capillary refill less than 3 second. Abdomen: Soft, round, no pulsatile masses, nondistended and nontender. No rebound, no guarding. No CVA tenderness, no hepatosplenomegaly. Bowel sounds present to all four quadrants. No high pitch or tinkling sounds, resonant to percussion. Extremities: No cyanosis, clubbing, or edema present. Pulses are palpable 2/2. Right foot plantar surface with necrotic wound Neuro: Alert and orientated x 4. PERRLA. Cranial nerves 2-12 intact without focal deficit. Skin: Warm, dry, and intact, without rash, erythema, or lesion. Psych: pleasant, cooperative, normal speech, normal affect, no hallucinations, no dysarthia H&P: Results Labs Labs: Short CBC 10/19/24 Range/Units 13:31 WBC 14.4 H (4.5-10.0) K/mm3 Hgb 14.6 (14.0-18.0) g/dL Hct 46.7 (42.0-52.0) % Plt Count 397 H D (150-375) k/mm3 BMP 10/19/24 10/19/24 13:31 15:26 Sodium 138 141 Potassium 4.3 4.2 Chloride 94 L 95 L Carbon Dioxide 14 L 14 L BUN 40 H D 38 H Creatinine 2.53 H 2.34 H Glucose 511 H* 479 H Calcium 9.9 10.0 Liver Function 10/19/24 Range/Units 13:31 Total Bilirubin 0.7 (0.2-1.3) mg/dL AST 27 (17-59) U/L ALT 17 (6-50) U/L Alkaline Phosphatase 125 (38-126) U/L Albumin 4.6 (3.5-5.1) g/dL Urine 10/19/24 Range/Units 16:35 Urine Color Yellow (Yellow) Urine Appearance Clear (Clear) Urine pH 5.0 (5.0-9.0) Ur Specific [place] 1.023 (1.001-1.035) Urine Protein 2+ H (Negative) mg/dL Urine Glucose (UA) 3+ H (Negative) mg/dL Assessment and Plan Assessment and plan (1) DKA (diabetic ketoacidosis): Qualifiers: Diabetes mellitus complication detail: without coma Diabetes mellitus type: type 2 Qualified Code(s): E11.10 - Type 2 diabetes mellitus with ketoacidosis without coma Code(s): E11.10 - Type 2 diabetes mellitus with ketoacidosis without coma Status: Acute Assessment and Plan: ICU for monitoring Insulin drip and DKA fluid protocol Q 4 hour BMP (2) Cellulitis of foot associated with diabetes mellitus: Code(s): E11.628 - Type 2 diabetes mellitus with other skin complications; L03.119 - Cellulitis of unspecified part of limb Status: Acute Assessment and Plan: Left foot CT Progression of likely ongoing chronic osteomyelitis at the base of the fifth proximal phalanx at the head and neck of the fifth metatarsal. And Chronic erosions at the head of the first proximal phalanx and at the base of the fourth metatarsal with location and appearance most consistent with gout. Right foot CT Ulceration seen in the area of the interphalangeal joint of the big toe with fat stranding seen in the area. Fat stranding also seen in the area of the calcaneus subcutaneous tissues. Minimal soft tissue density is seen deep to the plantar fascia. This may be infectious. Cefepime, Flagyl and vancomycin Bilateral wound cultures pending Blood cultures pending Surgery consulted Wound care consult (3) N&V (nausea and vomiting): Code(s): R11.2 - Nausea with vomiting, unspecified Status: Acute Assessment and Plan: Compazine and tigan Avoid Zofran due to QTC (4) [id number] kidney injury: Qualifiers: Acute renal failure type: unspecified Chronic kidney disease stage: stage 3 (moderate) Chronic kidney disease stage 3 subtype: stage 3b (GFR 30-44) Qualified Code(s): N17.9 - Acute kidney failure, unspecified; N18.32 - Chronic kidney disease, stage 3b Code(s): N17.9 - Acute kidney failure, unspecified; N18.9 - Chronic kidney disease, unspecified Status: Acute Assessment and Plan: IV fluids BMP in the morning Avoid nephrotoxic medications (5) Hypertension: Code(s): I10 - Essential (primary) hypertension Status: Acute Assessment and Plan: IV hydralazine (6) Type 2 diabetes mellitus: Qualifiers: Diabetes mellitus complication detail: with foot ulcer Diabetes mellitus complication status: with skin complications 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 use: with mcfp use Qualified Code(s): E11.621 - Type 2 diabetes mellitus with foot ulcer; L97.509 - Non-pressure chronic ulcer of other part of unspecified foot with unspecified severity; Z79.4 - MCC (current) use of insulin Code(s): E11.9 - Type 2 diabetes mellitus without complications Status: Chronic Assessment and Plan: Noncompliance 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 (7) Noncompliance: Code(s): Z91.19 - Patient's noncompliance with other medical treatment and regimen Status: Acute (8) Tachycardia: Code(s): R00.0 - Tachycardia, unspecified Status: Acute Assessment and Plan: Continue home Toprol Quality VTE Prophylaxis VTE prophylaxis: mechanical ordered Hospitalist [facility] Advance Care Plan I have confirmed that the patient's Advanced Care Plan is present, code status is documented, or surrogate decision maker is listed in patient medical record.: Yes Medication Reconciliation I have utilized all available resources to obtain, update and review the patients current medications (includes all prescriptions, OTC, herbals, cannabis, and nutritional supplements).: Yes
[2024-10-19 17:30] VITALS: BMI 23.0; BMI 23.4
[2024-10-19 17:31] VITALS: PULSE 122; RESP 15; TEMP 36.8; O2SAT 99
[2024-10-19 17:31] LABS: Glucose Point of Care 182 mg/dl (65-105)
[2024-10-19] MEDS: DEXTROSE 5%/0.45% SOD CHL 1,000 ML 150 ML IV CONT (17:43)
[2024-10-19 18:00] VITALS: BP 192/117; PULSE 118; PULSE 119; RESP 10; TEMP 36.7; O2SAT 98
[2024-10-19 18:17] LABS: Glucose Point of Care 152 mg/dl (65-105)
[2024-10-19] MEDS: PROCHLORPERAZINE EDISYLATE 10 MG/2 ML VIAL IV PUSH (18:18)
[2024-10-19 18:19] LABS: Anion Gap 17 mmol/L (4-12); Blood Urea Nitrogen 35 mg/dL (9-20); Calcium 8.9 mg/dL (8.4-10.2); Carbon Dioxide 21 mmol/L (22-30); Chloride 108 mmol/L (98-107); Estimated CRCL calculation 47 ml/min; Estimated Glomerular Filt Rate 37; Glucose 149 mg/dL (65-110); Potassium 3.3 mmol/L (3.4-5.0); Sodium 146 mmol/L (137-145)
[2024-10-19] MEDS: hydrALAZINE HCL 20 MG/ML VIAL 10 MG IV PUSH (18:25)
[2024-10-19] MEDS: KCL 20 MEQ/D5/0.45% SOD CHL 1,000 ML 150 ML IV CONT (18:26)
--- NOTE | 2024-10-19 18:31 | PC.NURSE ---
1720 This patient, Dejan Sevilla, was admitted to Intensive Care Unit-1. Patient/family oriented to hospital policies and general routines including ID bracelet, bed and alarms, visiting hours, pain management, procedures, bathroom and other care routines, personal items, smoking policy, room service/diet, and visiting hours. Information on how to activate the Rapid Response Team has been discussed. Patient/Family are encouraged to report perceived risks to care and to ask questions if they do not understand what they are told or what they should do.
[2024-10-19 19:06] LABS: Glucose Point of Care 152 mg/dl (65-105)
[2024-10-19 20:00] VITALS: BP 208/110; PULSE 114; PULSE 115; RESP 20; TEMP 36.8; O2SAT 100
[2024-10-19 20:18] LABS: Glucose Point of Care 178 mg/dl (65-105)
--- NOTE | 2024-10-19 21:13 | PC.NURSE ---
2100 while checking fall precautions educated patient per fall risk due to medical equipment and medications. Patient is alert and oriented and requests that bed alarm not be on. Pat states that hewon't try to get out of bed and will not get out of bed without help. Fall clasp is on armband.
[2024-10-19 22:00] VITALS: BP 177/101; PULSE 111; RESP 20; O2SAT 96
[2024-10-19 22:04] LABS: Anion Gap 19 mmol/L (4-12); Blood Urea Nitrogen 30 mg/dL (9-20); Calcium 8.8 mg/dL (8.4-10.2); Carbon Dioxide 18 mmol/L (22-30); Chloride 108 mmol/L (98-107); Estimated CRCL calculation 49 ml/min; Estimated Glomerular Filt Rate 39; Glucose 237 mg/dL (65-110); Potassium 3.6 mmol/L (3.4-5.0); Sodium 145 mmol/L (137-145)
[2024-10-19 22:17] LABS: Glucose Point of Care 225 mg/dl (65-105)
[2024-10-19 22:17] LABS: Glucose Point of Care 231 mg/dl (65-105)
[2024-10-19 23:09] LABS: Glucose Point of Care 246 mg/dl (65-105)
[2024-10-20] VITALS (13 sets, daily range): BP systolic 123–187; BP diastolic 69–99; PULSE 70–109; RESP 15–23; TEMP 36.3–37; O2SAT 95–99
[2024-10-20] MEDS: METOPROLOL TARTRATE 50 MG TAB PO ×3 (00:25→20:33)
[2024-10-20] MEDS: SERTRALINE HCL 50 MG TABLET 100 MG PO ×2 (00:25→20:33)
[2024-10-20] MEDS: SIMVASTATIN 20 MG TABLET PO ×2 (00:25→20:33)
[2024-10-20] MEDS: busPIRone HCL 5 MG TABLET 10 MG PO ×4 (00:25→20:39)
[2024-10-20] MEDS: PROCHLORPERAZINE EDISYLATE 10 MG/2 ML VIAL IV PUSH ×3 (00:27→20:35)
[2024-10-20] MEDS: hydroCHLOROthiazide 12.5 MG CAPSULE PO (00:36)
[2024-10-20] MEDS: lisinopriL 20 MG TABLET PO ×2 (00:36→09:05)
[2024-10-20 00:40] LABS: Glucose Point of Care 244 mg/dl (65-105)
[2024-10-20] MEDS: KCL 20 MEQ/D5/0.45% SOD CHL 1,000 ML 150 ML IV CONT ×2 (01:20→09:04)
[2024-10-20 01:23] LABS: Glucose Point of Care 233 mg/dl (65-105)
[2024-10-20 02:28] LABS: Glucose Point of Care 230 mg/dl (65-105)
[2024-10-20 02:34] LABS: Anion Gap 12 mmol/L (4-12); Blood Urea Nitrogen 28 mg/dL (9-20); Calcium 8.5 mg/dL (8.4-10.2); Carbon Dioxide 22 mmol/L (22-30); Chloride 109 mmol/L (98-107); Estimated CRCL calculation 53 ml/min; Estimated Glomerular Filt Rate 43; Glucose 242 mg/dL (65-110); Potassium 3.5 mmol/L (3.4-5.0); Sodium 143 mmol/L (137-145)
[2024-10-20 03:12] LABS: Glucose Point of Care 230 mg/dl (65-105)
[2024-10-20] MEDS: SODIUM CHLORIDE 0.9% IV 1,000 ML 150 ML IV CONT (04:30)
[2024-10-20] MEDS: hydrALAZINE HCL 20 MG/ML VIAL 10 MG IV PUSH ×2 (04:40→20:34)
[2024-10-20 04:47] LABS: Glucose Point of Care 258 mg/dl (65-105)
[2024-10-20] MEDS: metroNIDAZOLE 500 MG/ISO 100ML 500 MG/100 ML BAG 100 MG IVPB ×3 (05:30→21:43)
[2024-10-20] MEDS: CEFEPIME 1 GM/NS 50 ML 1 GM/50 ML BAG IVPB ×2 (05:31→17:18)
[2024-10-20 05:42] LABS: Glucose Point of Care 226 mg/dl (65-105)
[2024-10-20 06:04] LABS: Anion Gap 10 mmol/L (4-12); Blood Urea Nitrogen 25 mg/dL (9-20); Calcium 8.6 mg/dL (8.4-10.2); Carbon Dioxide 22 mmol/L (22-30); Chloride 110 mmol/L (98-107); Estimated CRCL calculation 56 ml/min; Estimated Glomerular Filt Rate 46; Glucose 231 mg/dL (65-110); Potassium 3.3 mmol/L (3.4-5.0); Sodium 142 mmol/L (137-145)
[2024-10-20 06:10] LABS: Glucose Point of Care 211 mg/dl (65-105)
[2024-10-20 06:21] LABS: Vancomycin Trough 8.6 ug/mL (10.0-20.0)
[2024-10-20 07:10] LABS: Glucose Point of Care 204 mg/dl (65-105)
[2024-10-20 08:07] LABS: Glucose Point of Care 199 mg/dl (65-105)
[2024-10-20 09:00] LABS: Glucose Point of Care 173 mg/dl (65-105)
[2024-10-20] MEDS: EMPAGLIFLOZIN 25 MG TABLET PO (09:05)
[2024-10-20] MEDS: PANTOPRAZOLE SODIUM IV 40 MG VIAL IV PUSH (09:05)
[2024-10-20] MEDS: POTASSIUM CHLORIDE INJ 40 MEQ in SODIUM CHLORIDE 0.9% IV 500 ML 86.67 MEQ IVPB (09:06)
[2024-10-20 09:14] LABS: Hematocrit 38.4 % (42.0-52.0); Hemoglobin 12.1 g/dL (14.0-18.0); Mean Corpuscular HGB Conc 31.5 g/dl (32-36); Mean Corpuscular Hemoglobin 25.3 pg (26-34); Mean Corpuscular Volume 80.2 fl (80-100); Mean Platelet Volume 10.2 fl (7.4-10.4); Platelet Count Result 321 k/mm3 (150-375); Red Blood Count 4.79 M/mm3 (4.6-6.20); Red Cell Distribution Width 15.2 % (11.5-14.5); White Blood Count 17.5 K/mm3 (4.5-10.0)
[2024-10-20 09:29] LABS: Anion Gap 11 mmol/L (4-12); Blood Urea Nitrogen 24 mg/dL (9-20); Calcium 8.6 mg/dL (8.4-10.2); Carbon Dioxide 22 mmol/L (22-30); Chloride 110 mmol/L (98-107); Estimated CRCL calculation 58 ml/min; Estimated Glomerular Filt Rate 48; Glucose 195 mg/dL (65-110); Potassium 3.1 mmol/L (3.4-5.0); Sodium 143 mmol/L (137-145)
--- NOTE | 2024-10-20 09:34 | P.CONIN_ITS ---
Assessment and Plan Assessment and plan (1) DKA (diabetic ketoacidosis): Qualifiers: Diabetes mellitus complication detail: without coma Diabetes mellitus type: type 2 Qualified Code(s): E11.10 - Type 2 diabetes mellitus with ketoacidosis without coma Code(s): E11.10 - Type 2 diabetes mellitus with ketoacidosis without coma Status: Acute Assessment and Plan: 10/19/2024: Patient presented with nausea, vomiting, hyperglycemia likely noncompliant with his medications as he lost his insurance according to the patient -blood sugars were 511, anion gap 30, elevated beta hydroxybutyrate -patient diagnosed with diabetic ketoacidosis, given 2-1/2 L IV fluid bolus in the ER and started on insulin infusion per DKA protocol -likely cause could be related to infection of the diabetic foot wound -remains in ICU infusion per DKA protocol at this time -will transition once a anion gap closes and CO2 improves. -okay to have ice chips (2) Type 2 diabetes mellitus with hyperglycemia, with long-term current use of insulin: Code(s): E11.65 - Type 2 diabetes mellitus with hyperglycemia; Z79.4 - emt intermediate (current) use of insulin Status: Acute Assessment and Plan: Patient has history of diabetes, takes Lantus 40 units at home along with Jardiance -hemoglobin A1c > 14.0 this admission -development educator and dietitian has been consulted (3) Diabetic foot infection: Code(s): E11.628 - Type 2 diabetes mellitus with other skin complications; L08.9 - Local infection of the skin and subcutaneous tissue, unspecified Status: Acute Assessment and Plan: Patient has history of osteomyelitis, left foot foot with progression of chronic osteomyelitis, likely infectious left foot also -surgery has been consulted -patient started on cefepime, vancomycin and flash -10/19: blood and wound cultures have been obtained and pending CT scan of left foot : Progression of chronic osteomyelitis at the base of the 5th proximal phalanx at the head and neck of the 5th metatarsal. Chronic erosions at the head of the 1st proximal phalanx and at the base of the 4th metatarsal with location and appears most consistent with gout CT scan of the right foot: Status post amputation of the 5th metatarsal bone and digits. Sclerotic changes in the proximal 4th metatarsal bone which may be due to old fracture osteomyelitis. Ulceration seen in the areas of interphalangeal joint of the big toe with fat stranding seen in that area. Fat stranding also seen in the area of calcaneus subcutaneous tissue. Minimal soft tissue densities seen deep to the plantar fascia this may be infectious (4) Acute kidney injury superimposed on stage 3b chronic kidney disease: Code(s): N17.9 - Acute kidney failure, unspecified; N18.32 - Chronic kidney disease, stage 3b Status: Acute Assessment and Plan: Acute on chronic kidney disease likely related to hypovolemia/dehydration related to diabetic ketoacidosis and infection -adequately fluid-resuscitated -creatinine improving along with adequate urine output -continue to monitor renal function, electrolytes and urine output (5) N&V (nausea and vomiting): Code(s): R11.2 - Nausea with vomiting, unspecified Status: Acute Assessment and Plan: RESOLVED (6) Hypertension: Code(s): I10 - Essential (primary) hypertension Status: Acute Assessment and Plan: continue metoprolol and lisinopril PRN hydralazine HOLD HCTZ Plan DVT prophylaxis:lovenox Stress ulcer prophylaxis:Protonix Nutrition:diabetic diet Code Status:full code Critical Care Time Spent: 49 minutes Due to a high probability of clinically significant, life threatening deterioration, the patient required my highest level of preparedness to intervene emergently and I personally spent this critical care time directly and personally managing the patient. This critical care time included obtaining a history; examining the patient; pulse oximetry; ordering and review of studies; arranging urgent treatment with development of a management plan; evaluation of patient's response to treatment; frequent reassessment; and discussions with other providers. It was exclusive of separately billable procedures and treating other patients and teaching time. Please see Assessment and Plan section and the rest of the note for further information on patient assessment and treatment This dictation may have been done utilizing a voice recognition system. Attempts have been made to correct errors. However, there may be uncorrected grammatical, spelling, and recognitions errors present. Clinical Pharmacy Coordinator Consult Note Consult date: 10/20/24 Reason for consult: Nausea, vomiting x3 days, Diabetic ketoacidosis, osteomyelitis of the left foot HPI: Dejan Sevilla is a 49 year old male with past medical history of osteomyelitis status post right 5th toe amputation and 4th left toe amputation, diabetic retinopathy, diabetic gastroparesis, he, diabetes, history of diastolic dysfunction, history of GI bleed secondary to esophagitis in 2019, chronic kidney disease stage III, bipolar disorder, GERD presented the ED on 10/19/2024 with complains of nausea and vomiting for 3 days. Also complained of some diarrhea. Upon arrival to the ER patient was found to be tachycardic with heart rates in the 140s that did improve with rehydration. WBC count of 14.4, hemoglobin 14.6. Blood sugars was 511, anion gap of 30, elevated beta hydroxybutyrate, acute on chronic kidney disease with creatinine of 2.53 on admission (baseline creatinine is 1.70 - 2.00). CO2 was 14, BUN 40, hemoglobin A1c > 14.0 P lactic acid of 3.2 with a repeat lactic after fluids was 2.1. He received 2.5 L IV fluids. Patient also has bilateral diabetic foot wounds, which were cultured, started on Flagyl, cefepime and vancomycin given history of osteomyelitis, CT scan of left foot : Progression of chronic osteomyelitis at the base of the 5th proximal phalanx at the head and neck of the 5th metatarsal. Chronic erosions at the head of the 1st proximal phalanx and at the base of the 4th metatarsal with location and appears most consistent with gout CT scan of the right foot: Status post amputation of the 5th metatarsal bone and digits. Sclerotic changes in the proximal 4th metatarsal bone which may be due to old fracture osteomyelitis. Ulceration seen in the areas of interphalangeal joint of the big toe with fat stranding seen in that area. Fat stranding also seen in the area of calcaneus subcutaneous tissue. Minimal soft tissue densities seen deep to the plantar fascia this may be infectious Patient was started on insulin infusion per DKA protocol and transferred to the ICU for further management Patient seen and examined the ICU this morning, is awake, alert, oriented, pleasant gentleman. Denies any nausea vomiting this morning, states he feels much better pain denies any diarrhea, abdominal pain. He is requesting for some ice chips. Hemodynamically stable with elevated blood pressures, adequate urine output, afebrile. Review of Systems 2 Review of Systems: All systems reviewed & are unremarkable except as noted in HPI and below [facility] Past Medical History Medical History (Updated 10/19/24 @ 22:43 by Sadia Shannon, EXTRACTOR OPERATOR SOLVENT PROCESS) Diastolic dysfunction Echocardiogram 07/2021: Grade 1 diastolic dysfunction, no intracardiac shunt with agitated saline, EF 65-70, no valvular abnormalities, mild concentric increased left ventricular wall thickness Chronic anemia Diabetic gastroparesis Diabetic retinopathy History of GI bleed Secondary to esophagitis noted on EGD in November 2017. History of suicide attempt Chronic kidney disease, stage 3 Baseline creatinine appears to be between 1.8-2 Hypertension History of osteomyelitis Right 5th toe, status post amputation. Bipolar disorder GERD (gastroesophageal reflux disease) Surgical History Surgical History (Updated 05/17/24 @ 10:52 by Aleksandra Ruiz MA) Amputation of toe of left foot 12/09/23 Open amputation left 4th toe Dr. Dumont Status post amputation of toe of right foot Right 5th toe amputation including the distal metatarsal in 2018. Open amputation of right 5th metatarsal in July 2019 for osteomyelitis of right 5th metatarsal stump. Family History Family History Other Adopted Social History Social History (Updated 05/17/24 @ 10:53 by Aleksandra Ruiz MA) Social History: The patient lives in [place] with his and their 3 children, 1 biological daughter and 2 step children. 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 He is a previous smoker, both cigars and cigarettes. He does smoke cannabis. He denies alcohol use. , Pari, is his surrogate decision maker and he wishes to be a full code. Smoking packs per day: 1 Smoking cigarettes per day: 20.0 Years smoked: 20 Smoking pack-years: 20.00 Smoking status: Former smoker Second hand tobacco smoke exposure: Yes Smoking end date: 10/16/24 Additional smoking assessment comments: Alcohol intake: never Substance use: never Substance use type: does not use Last use: 03/20/23 Do You Feel Safe in your Home?: Yes Lack of Transportation: YES Lack of Food: Never True Current Housing: Decline to Answer Concerned About Future Housing: Decline to Answer Difficulty Paying Gas/Electric Bills: Decline to Answer Difficulty Paying for Meds: Decline to Answer Currently Unemployed: Decline to Answer Education: Associate Degree Difficulty w/ Childcare or Family Care: Decline to Answer Gender identity (if verbalized by the patient): Male Spiritual care concerns: No Agree to blood products: Yes Meds Home Medications and Allergies Home Medications ?Medication ?Instructions ?Recorded ?Confirmed ?Type metoprolol tartrate 50 mg tablet 50 mg PO BID 03/21/23 10/19/24 History omeprazole 20 mg capsule,delayed 20 mg PO DAILY 03/21/23 10/19/24 History release sertraline 50 mg tablet 100 mg PO DAILY 03/21/23 10/19/24 History simvastatin 20 mg tablet 20 mg PO HS 03/21/23 10/19/24 History insulin glargine 100 unit/mL 40 unit (0.4 mL) subcut QHS #10 mL 12/11/23 10/19/24 Rx subcutaneous solution (Lantus U-100 Insulin) buspirone 15 mg tablet 10 mg PO TID 10/19/24 10/19/24 History empagliflozin 25 mg tablet 25 mg PO DAILY 10/19/24 10/19/24 History (Jardiance) lisinopril 20 1 tablet PO DAILY 10/19/24 10/19/24 History mg-hydrochlorothiazide 12.5 mg tablet sertraline 100 mg tablet 100 mg PO Q24H 10/19/24 10/19/24 History Allergies Allergy/AdvReac Type Severity Reaction Status Date / Time bee stings Allergy Unknown Unknown Uncoded 10/19/24 23:07 Vital Signs Vital Signs - 24 hr 10/19/24 13:17 10/19/24 17:08 10/19/24 17:31 Temperature 98.0 F 97.1 F L 98.2 F Pulse Rate 139 H 116 H 122 H Respiratory Rate 15 18 15 Blood Pressure 185/157 H 185/98 H Pulse Oximetry 100 99 99 Oxygen Delivery Room Air 10/19/24 18:00 10/19/24 18:00 10/19/24 20:00 Temperature 98.1 F 98.3 F Pulse Rate 119 H 118 H 114 H Respiratory Rate 10 L 20 Blood Pressure 192/117 H 208/110 H Pulse Oximetry 98 100 Oxygen Delivery 10/19/24 20:00 10/19/24 20:00 10/19/24 22:00 Temperature Pulse Rate 115 H 111 H Respiratory Rate 20 Blood Pressure 177/101 H Pulse Oximetry 96 Oxygen Delivery Room Air 10/19/24 22:00 10/20/24 00:00 10/20/24 00:00 Temperature 98.4 F Pulse Rate 111 H 107 H Respiratory Rate 23 H Blood Pressure 187/99 H Pulse Oximetry 95 Oxygen Delivery Room Air 10/20/24 00:00 10/20/24 00:25 10/20/24 02:00 Temperature Pulse Rate 106 H 106 H 109 H Respiratory Rate 19 Blood Pressure 175/96 H Pulse Oximetry 97 Oxygen Delivery 10/20/24 02:00 10/20/24 04:00 10/20/24 04:00 Temperature 98.4 F Pulse Rate 109 H 93 Respiratory Rate 20 Blood Pressure 158/89 H Pulse Oximetry 95 Oxygen Delivery Room Air 10/20/24 04:00 10/20/24 06:00 10/20/24 06:00 Temperature Pulse Rate 89 85 85 Respiratory Rate 15 Blood Pressure 147/83 H Pulse Oximetry 96 Oxygen Delivery 10/20/24 08:00 10/20/24 08:28 Temperature 98.4 F Pulse Rate 80 Respiratory Rate 18 Blood Pressure 153/86 H Pulse Oximetry 96 96 Oxygen Delivery Room Air Exam 2 Narrative: General: Pleasant gentleman in no acute distress HEENT:? Pupils equal and reactive, sclera is clear Neck:? Supple Respiratory:? Acute clear to auscultation bilaterally, no wheezing, adequate air entry Cardiac:? S1-S2 is normal, regular rate and rhythm Abdomen:? Soft, nontender, nondistended, normoactive bowel so Extremities: No edema, palpable pedal pulses bilaterally. Neuro:? Alert, awake, oriented x3, nonfocal Skin:? A night foot plantar surface wound with necrosis and eschar, left foot plantar surface wound noted Psych:? Normal mentation and affect Results Labs 10/20/24 09:08 10/20/24 09:08 Labs: Short CBC 10/19/24 10/20/24 Range/Units 13:31 09:08 WBC 14.4 H 17.5 H (4.5-10.0) K/mm3 Hgb 14.6 12.1 L (14.0-18.0) g/dL Hct 46.7 38.4 L (42.0-52.0) % Plt Count 397 H D 321 (150-375) k/mm3 BMP 10/19/24 10/19/24 10/19/24 13:31 15:26 18:01 Sodium 138 141 146 H Potassium 4.3 4.2 3.3 L Chloride 94 L 95 L 108 H Carbon Dioxide 14 L 14 L 21 L BUN 40 H D 38 H 35 H Creatinine 2.53 H 2.34 H 1.96 H Glucose 511 H* 479 H 149 H Calcium 9.9 10.0 8.9 10/19/24 10/20/24 10/20/24 21:43 01:34 05:42 Sodium 145 143 142 Potassium 3.6 3.5 3.3 L Chloride 108 H 109 H 110 H Carbon Dioxide 18 L 22 22 BUN 30 H 28 H 25 H Creatinine 1.87 H 1.72 H 1.62 H Glucose 237 H 242 H 231 H Calcium 8.8 8.5 8.6 10/20/24 09:08 Sodium 143 Potassium 3.1 L Chloride 110 H Carbon Dioxide 22 BUN 24 H Creatinine 1.55 H Glucose 195 H Calcium 8.6 Liver Function 10/19/24 Range/Units 13:31 Total Bilirubin 0.7 (0.2-1.3) mg/dL AST 27 (17-59) U/L ALT 17 (6-50) U/L Alkaline Phosphatase 125 (38-126) U/L Albumin 4.6 (3.5-5.1) g/dL Urine 10/19/24 Range/Units 16:35 Urine Color Yellow (Yellow) Urine Appearance Clear (Clear) Urine pH 5.0 (5.0-9.0) Ur Specific [place] 1.023 (1.001-1.035) Urine Protein 2+ H (Negative) mg/dL Urine Glucose (UA) 3+ H (Negative) mg/dL Quality VTE Prophylaxis VTE prophylaxis: pharmacologic ordered Hospitalist MIPS Advance Care Plan I have confirmed that the patient's Advanced Care Plan is present, code status is documented, or surrogate decision maker is listed in patient medical record.: Yes Medication Reconciliation I have utilized all available resources to obtain, update and review the patients current medications (includes all prescriptions, OTC, herbals, cannabis, and nutritional supplements).: Yes
[2024-10-20 09:59] LABS: Glucose Point of Care 190 mg/dl (65-105)
[2024-10-20] MEDS: VANCOMYCIN 1,250 MG/NS 250 ML 1,250 MG/250 ML BAG 125 MG IVPB ×2 (10:34→23:00)
[2024-10-20] MEDS: INSULIN GLARGINE (*BKC) 100 UNITS/ML 40 UNITS SUB-Q (10:34)
[2024-10-20 12:24] LABS: Glucose Point of Care 158 mg/dl (65-105)
[2024-10-20 13:39] LABS: Glucose Point of Care 178 mg/dl (65-105)
[2024-10-20] MEDS: METOCLOPRAMIDE HCL INJ 10 MG/2 ML VIAL IV PUSH ×2 (16:02→22:59)
[2024-10-20 16:43] LABS: Glucose Point of Care 137 mg/dl (65-105)
[2024-10-20 21:17] LABS: Glucose Point of Care 99 mg/dl (65-105)
[2024-10-21] VITALS (7 sets, daily range): BP systolic 129–165; BP diastolic 82–90; PULSE 73–84; RESP 16–20; TEMP 36–36.7; O2SAT 97–99
[2024-10-21] MEDS: CEFEPIME 1 GM/NS 50 ML 1 GM/50 ML BAG IVPB ×2 (04:48→16:37)
[2024-10-21] MEDS: metroNIDAZOLE 500 MG/ISO 100ML 500 MG/100 ML BAG 100 MG IVPB ×3 (05:20→22:31)
[2024-10-21] MEDS: hydrALAZINE HCL 20 MG/ML VIAL 10 MG IV PUSH (05:20)
[2024-10-21 08:03] LABS: Basophils Percent Auto 0.2 % (0.2-1.2); Hematocrit 38.7 % (42.0-52.0); Immature Granulocyte Absolute 0.38 K/mm3 (0.00-0.031); Immature Granulocyte Percent A 2.4 % (0-0.5); Lymphocytes Absolute Auto 1.51 K/mm3 (0.9-3.2); Lymphocytes Percent Auto 9.4 % (18.3-44.2); Mean Corpuscular Hemoglobin 25.3 pg (26-34); Mean Corpuscular Volume 81.6 fl (80-100); Mean Platelet Volume 10.2 fl (7.4-10.4); Monocytes Percent Auto 6.2 % (2.6-8.5); Neutrophils Absolute Auto 13.1 K/mm3 (1.3-6.7); Neutrophils Percent Auto 81.8 % (45.5-73.1); Platelet Count Result 291 k/mm3 (150-375); Red Blood Count 4.74 M/mm3 (4.6-6.20); Red Cell Distribution Width 15.2 % (11.5-14.5)
[2024-10-21] MEDS: busPIRone HCL 5 MG TABLET 10 MG PO ×2 (08:13→21:19)
[2024-10-21] MEDS: EMPAGLIFLOZIN 25 MG TABLET PO (08:13)
[2024-10-21] MEDS: lisinopriL 20 MG TABLET PO (08:13)
[2024-10-21] MEDS: METOPROLOL TARTRATE 50 MG TAB PO ×2 (08:13→21:20)
[2024-10-21 08:14] LABS: Alanine Aminotransferase 11 U/L (6-50); Albumin Level 3.2 g/dL (3.5-5.1); Alkaline Phosphatase 73 U/L (38-126); Anion Gap 8 mmol/L (4-12); Aspartate Amino Transferase 24 U/L (17-59); Bilirubin,Total 0.5 mg/dL (0.2-1.3); Blood Urea Nitrogen 19 mg/dL (9-20); Calcium 8.2 mg/dL (8.4-10.2); Carbon Dioxide 24 mmol/L (22-30); Chloride 103 mmol/L (98-107); Estimated CRCL calculation 64 ml/min; Estimated Glomerular Filt Rate 54; Glucose 140 mg/dL (65-110); Magnesium 1.7 mg/dL (1.6-2.3); Phosphorus 3.5 mg/dL (2.5-4.5); Potassium 2.6 mmol/L (3.4-5.0); Sodium 135 mmol/L (137-145)
[2024-10-21] MEDS: INSULIN GLARGINE (*BKC) 100 UNITS/ML 40 UNITS SUB-Q (08:17)
[2024-10-21] MEDS: PANTOPRAZOLE SODIUM IV 40 MG VIAL IV PUSH (08:21)
[2024-10-21 08:23] LABS: Glucose Point of Care 134 mg/dl (65-105)
[2024-10-21] MEDS: POTASSIUM CHLORIDE INJ 40 MEQ in SODIUM CHLORIDE 0.9% IV 500 ML 86.67 MEQ IVPB (09:02)
[2024-10-21] MEDS: MAGNESIUM SULF 2 GM/WATER 50ML 2 GM/50 ML BAG IVPB (09:03)
[2024-10-21] MEDS: POTASSIUM CHLORIDE 20 MEQ ER TABLET 40 MEQ PO ×2 (09:03→16:37)
[2024-10-21 09:10] LABS: Vancomycin Random 20.9 ug/mL (10-20)
[2024-10-21 12:02] LABS: Glucose Point of Care 152 mg/dl (65-105)
--- NOTE | 2024-10-21 12:46 | PM.CNGS ---
Assessment and Plan Assessment and plan (1) Ulcer of left fifth toe due to diabetes mellitus: Code(s): E11.621 - Type 2 diabetes mellitus with foot ulcer; L97.529 - Non-pressure chronic ulcer of other part of left foot with unspecified severity Status: Chronic Assessment and Plan: Will review films with radiologist and most likely will need left 5th toe transmetatarsal amputation. Start dressing changes today. This left 5th toe metatarsal ulcer was debrided 03/22/2023 and over 3 months time went on to heal. It recurred in the recovery. After left 4th toe was necrotic and had to be amputated last December. The 5th toe had a callus and this came off revealing an ulcer around the end of January 2020 for. Patient failed to continue follow-up as I last saw him 05/17/2024. (2) Ulcer of right great toe due to diabetes mellitus: Code(s): E11.621 - Type 2 diabetes mellitus with foot ulcer; L97.519 - Non-pressure chronic ulcer of other part of right foot with unspecified severity Status: Acute Assessment and Plan: Will review films with radiologist but will likely need debridement of the 1st toe ulcer and possibly amputation of the 1st toe. Patient was treated 04/16/2021 for left great toe ulcer with silver gel and a cam fitted boot. This did go on to heal over 2 months time. Start dressing changes today. (3) Noncompliance: Code(s): Z91.19 - Patient's noncompliance with other medical treatment and regimen Status: Chronic Assessment and Plan: Both with diabetes and with recommended foot care. (4) Uncontrolled diabetes mellitus: Qualifiers: Diabetes mellitus type: type 2 Glycemic state: with hyperglycemia Qualified Code(s): E11.65 - Type 2 diabetes mellitus with hyperglycemia Status: Chronic Assessment and Plan: Patient does not monitor his blood sugars. Hemoglobin A1c on this admission was over 14. (5) Diabetic foot infection: Code(s): E11.628 - Type 2 diabetes mellitus with other skin complications; L08.9 - Local infection of the skin and subcutaneous tissue, unspecified Status: Acute Assessment and Plan: Probably only the left 5th metatarsal with chronic osteomyelitis. Neither foot has significant swelling, erythema, or purulent drainage. (6) History of amputation of lesser toe of left foot: Code(s): Z89.422 - Acquired absence of other left toe(s) Status: Chronic Assessment and Plan: Fourth toe transmetatarsal open amputation 12/09/2023 (7) History of amputation of right fifth toe: Code(s): Z89.421 - Acquired absence of other right toe(s) Status: Chronic Assessment and Plan: Right 5th metatarsal amputation 08/02/2019 History of Present Illness Consult details Consult date: 10/21/24 Reason for consult: other (Diabetic foot ulcers, diabetic foot infection) Requesting physician: Sadia Shannon APRN Narrative: Patient is a 49-year-old man well known to me from previous diabetic foot infections. He came to the emergency room on 10/19/2024 with a 3 day history of nausea, vomiting, and diarrhea. He was found to be in diabetic ketoacidosis with a blood sugar of 511. His hemoglobin A1c was over 14. He was also noted to have foot ulcers on the left lateral 5th metatarsal area as well as the interphalangeal plantar space of his right great toe. Patient has a long history of noncompliance with his diabetes, he does not track his blood sugar. He has complications of insulin-dependent diabetes including neuropathy, chronic kidney disease, and recurrent diabetic foot infections. He also smokes marijuana but reports that he did stop that 3 days prior to admission, presumably due to the nausea vomiting and diarrhea. My initial encounter with the patient was in July of 2019. Prior to that, he had a 5th metatarsal right toe amputation at [facility]. He had recurrent osteomyelitis in the remaining 5th metatarsal and I performed an open amputation of the right 5th metatarsal. He also had a hemoglobin A1c of over 14 at that time on presentation. This right 5th metatarsal amputation healed over 4 months. I next saw him 04/16/2021 for a left great toe ulcer. Fortunately, this did not include osteomyelitis and eventually healed with antibiotics, silver gel, and a cam fitted boot. This took 2 months to heal. The neck is presented to my partner, Dr. Kuo, with a left 5th metatarsal infection that started on the plantar surface and then tracked around to the anterior left 5th metatarsal. This had purulent drainage and required debridement. It did heal over 3 months. He neck is presented with an infection . This was a necrotic left 4th toe with evidence of osteomyelitis. He underwent a left 4th toe open amputation. This healed in approximately 2 months. However, during the follow-up. For the 4th toe amputation, the previous left 5th metatarsal ulcer recurred. This was debrided again in the office on 02/02/2024. The 4th toe amputation healed over 8 weeks. I had been continuing to see him for the 5th metatarsal ulcer. I last saw him May 17, 2024. He did not follow-up and I have not seen him since then. After each of the patient's foot infections and/or amputations, I have asked him to see a dictating machine transcriber for prosthetics to avoid continuing to develop ulcers and infections. He has not done this and continues to use slippers and common shoes on his feet. For the patient's current illness, he was treated for his DKA in the intensive care unit. He has improved significantly and blood sugars are now running in the 100s. He has been transferred to the [facility] floor. When I saw him this morning, he had hospital socks on but no bandages over the left 5th metatarsal ulcer or the right 1st proximal phalangeal ulcer. Small balls of lint from the socks were incorporated into the ulceration described on each foot. He had CT scans on both feet from the emergency room. The right foot CT scan showed chronic fracture of the 4th toe as well as ulceration of the interphalangeal space of the plantar right 1st toe. No osteomyelitis was seen. CT scan of the left foot showed osteomyelitis of the proximal 5th phalanx and the left 5th metatarsal. Some bony changes were also seen on the left 1st and 4th toes but these were felt to represent gout. Patient is seen now in consultation regarding his recurrent right great toe ulcer as well as his left 5th metatarsal ulcer that now has osteomyelitis of the metatarsal and proximal 5th phalanx. Review of Systems Review of Systems: All systems reviewed & are unremarkable except as noted in HPI and below ( HPI) [facility] Past Medical History Medical History Diastolic dysfunction Echocardiogram 07/2021: Grade 1 diastolic dysfunction, no intracardiac shunt with agitated saline, EF 65-70, no valvular abnormalities, mild concentric increased left ventricular wall thickness Chronic anemia Diabetic gastroparesis Diabetic retinopathy History of GI bleed Secondary to esophagitis noted on EGD in November 2017. History of suicide attempt Chronic kidney disease, stage 3 Baseline creatinine appears to be between 1.8-2 Hypertension History of osteomyelitis Right 5th toe, status post amputation. Bipolar disorder GERD (gastroesophageal reflux disease) Surgical History Surgical History Amputation of toe of left foot 12/09/23 Open amputation left 4th toe Dr. Dumont Status post amputation of toe of right foot Right 5th toe amputation including the distal metatarsal in 2018. Open amputation of right 5th metatarsal in July 2019 for osteomyelitis of right 5th metatarsal stump. Family History Family History Other Adopted Social History Social History Social History: The patient lives in [place] with his and their 3 children, 1 biological daughter and 2 step children. 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 He is a previous smoker, both cigars and cigarettes. He does smoke cannabis. He denies alcohol use. , Prai, is his surrogate decision maker and he wishes to be a full code. Smoking packs per day: 1 Smoking cigarettes per day: 20.0 Years smoked: 20 Smoking pack-years: 20.00 Smoking status: Former smoker Second hand tobacco smoke exposure: Yes Smoking end date: 10/16/24 Additional smoking assessment comments: Alcohol intake: never Substance use: never Substance use type: does not use Last use: 03/20/23 Do You Feel Safe in your Home?: Yes Lack of Transportation: YES Lack of Food: Never True Current Housing: Decline to Answer Concerned About Future Housing: Decline to Answer Difficulty Paying Gas/Electric Bills: Decline to Answer Difficulty Paying for Meds: Decline to Answer Currently Unemployed: Decline to Answer Education: Associate Degree Difficulty w/ Childcare or Family Care: Decline to Answer Gender identity (if verbalized by the patient): Male Spiritual care concerns: No Agree to blood products: Yes Meds Home Medications and Allergies Home Medications ?Medication ?Instructions ?Recorded ?Confirmed ?Type metoprolol tartrate 50 mg tablet 50 mg PO BID 03/21/23 10/19/24 History omeprazole 20 mg capsule,delayed 20 mg PO DAILY 03/21/23 10/19/24 History release sertraline 50 mg tablet 100 mg PO DAILY 03/21/23 10/19/24 History simvastatin 20 mg tablet 20 mg PO HS 03/21/23 10/19/24 History insulin glargine 100 unit/mL 40 unit (0.4 mL) subcut QHS #10 mL 12/11/23 10/19/24 Rx subcutaneous solution (Lantus U-100 Insulin) buspirone 15 mg tablet 10 mg PO TID 10/19/24 10/19/24 History empagliflozin 25 mg tablet 25 mg PO DAILY 10/19/24 10/19/24 History (Jardiance) lisinopril 20 1 tablet PO DAILY 10/19/24 10/19/24 History mg-hydrochlorothiazide 12.5 mg tablet sertraline 100 mg tablet 100 mg PO Q24H 10/19/24 10/19/24 History Allergies Allergy/AdvReac Type Severity Reaction Status Date / Time bee stings Allergy Unknown Unknown Uncoded 10/19/24 23:07 Vital Signs Vital Signs - 24 hr 10/20/24 16:00 10/20/24 20:00 10/20/24 20:33 Temperature 36.9 C Pulse Rate 75 86 86 Respiratory Rate 18 18 Blood Pressure 129/69 Pulse Oximetry 98 98 Oxygen Delivery Room Air 10/20/24 22:00 10/21/24 06:00 10/21/24 08:00 Temperature 36.3 C L 36.7 C Pulse Rate 86 84 84 Respiratory Rate 18 18 18 Blood Pressure 173/87 H 165/82 H Pulse Oximetry 99 99 99 Oxygen Delivery Room Air Exam Const: General: comfortable, no acute distress, alert, awake and well nourished HENMT: Head: normocephalic and atraumatic Mouth: Yes Normal oral and palatal mucosa present Neck: Neck: normal visual inspection, no lymphadenopathy and nontender Resp: Effort & Inspection: normal respiratory effort Auscultation: clear to auscultation bilaterally Cardio: Rate: regular rate Rhythm: regular rhythm Heart sounds: no gallops, no murmurs and no rubs GI: Inspection: non-distended GI Palp: Yes Soft to palpation, No Tenderness to palpation present (GI), No Hepatomegaly present and No Splenomegaly present Skin: Lesions: no lesions Rashes: no rashes Neuro: General: no focal motor deficits and CN's II-XI intact bilaterally Cranial nerves: Yes Equal, round and reactive pupils present, Yes Bilaterally intact EOM present, Yes facial symmetry and Yes Midline tongue present Speech: normal speech Motor exam (neuro): 5/5 motor strength present throughout and Motor abnormalities not present Extrem: Right lower extremity: normal capillary refill, ankle Details: no swelling, no crepitus and no penetrating wound and foot (2 x 1.5 cm plantar ulcer proximal phalanx 1st toe) Details: no edema and other (Much callus around the ulcer which has a soft, dry covering in the center.); no tenderness, no unusual warmth and no crepitus Left lower extremity: normal capillary refill and foot (To 5th metatarsal ulcers, callus, dry covering) Details: no edema and other (Larger ulcer is 2.5 x 2 cm, smaller is 1 x 0.7 cm); no tenderness, no unusual warmth and no crepitus; no cyanosis Psych: Appearance: disheveled Speech and movement: Clear speech present Affect: normal affect Attitude: cooperative Thought process: Normal thought process present Insight: Fair insight present (Psych) Judgement: Limited judgement present (Psych) Results Labs 10/21/24 07:49 10/21/24 07:49 Labs: Abnormal lab results 10/20/24 10/20/24 10/21/24 Range/Units 13:35 16:34 07:49 WBC 16.0 H (4.5-10.0) K/mm3 Hgb 12.0 L (14.0-18.0) g/dL Hct 38.7 L (42.0-52.0) % MCH 25.3 L (26-34) pg MCHC 31.0 L (32-36) g/dl RDW 15.2 H (11.5-14.5) % Immature Gran % (Auto) 2.4 H (0-0.5) % Neut % (Auto) 81.8 H (45.5-73.1) % Lymph % (Auto) 9.4 L (18.3-44.2) % Wy[place] # (Auto) 1.0 H (0.1-0.6) K/mm3 Abs Immat Gran (auto) 0.38 H (0.00-0.031) K/mm3 Absolute Neuts (auto) 13.1 H (1.3-6.7) K/mm3 Sodium 135 L (137-145) mmol/L Potassium 2.6 L* (3.4-5.0) mmol/L Creatinine 1.40 H (0.7-1.3) mg/dL Estimated GFR 54 L (59 - ) Glucose 140 H (65-110) mg/dL POC Capillary Glucose 178 H 137 H (65-105) mg/dl Calcium 8.2 L (8.4-10.2) mg/dL Total Protein 6.0 L (6.3-8.2) g/dL Albumin 3.2 L (3.5-5.1) g/dL Random Vancomycin 20.9 H (10-20) ug/mL 10/21/24 10/21/24 Range/Units 08:08 11:10 WBC (4.5-10.0) K/mm3 Hgb (14.0-18.0) g/dL Hct (42.0-52.0) % MCH (26-34) pg MCHC (32-36) g/dl RDW (11.5-14.5) % Immature Gran % (Auto) (0-0.5) % Neut % (Auto) (45.5-73.1) % Lymph % (Auto) (18.3-44.2) % Wy[place] # (Auto) (0.1-0.6) K/mm3 Abs Immat Gran (auto) (0.00-0.031) K/mm3 Absolute Neuts (auto) (1.3-6.7) K/mm3 Sodium (137-145) mmol/L Potassium (3.4-5.0) mmol/L Creatinine (0.7-1.3) mg/dL Estimated GFR (59 - ) Glucose (65-110) mg/dL POC Capillary Glucose 134 H 152 H (65-105) mg/dl Calcium (8.4-10.2) mg/dL Total Protein (6.3-8.2) g/dL Albumin (3.5-5.1) g/dL Random Vancomycin (10-20) ug/mL Diabetes panel 10/21/24 Range/Units 07:49 Sodium 135 L (137-145) mmol/L Potassium 2.6 L* (3.4-5.0) mmol/L Chloride 103 (98-107) mmol/L Carbon Dioxide 24 (22-30) mmol/L BUN 19 (9-20) mg/dL Creatinine 1.40 H (0.7-1.3) mg/dL Glucose 140 H (65-110) mg/dL Calcium 8.2 L (8.4-10.2) mg/dL AST 24 (17-59) U/L ALT 11 (6-50) U/L Alkaline Phosphatase 73 (38-126) U/L Total Protein 6.0 L (6.3-8.2) g/dL Albumin 3.2 L (3.5-5.1) g/dL Calcium panel 10/21/24 Range/Units 07:49 Calcium 8.2 L (8.4-10.2) mg/dL Phosphorus 3.5 (2.5-4.5) mg/dL Albumin 3.2 L (3.5-5.1) g/dL Pituitary panel 10/21/24 Range/Units 07:49 Sodium 135 L (137-145) mmol/L Potassium 2.6 L* (3.4-5.0) mmol/L Chloride 103 (98-107) mmol/L Carbon Dioxide 24 (22-30) mmol/L BUN 19 (9-20) mg/dL Creatinine 1.40 H (0.7-1.3) mg/dL Glucose 140 H (65-110) mg/dL Calcium 8.2 L (8.4-10.2) mg/dL Adrenal panel 10/21/24 Range/Units 07:49 Sodium 135 L (137-145) mmol/L Potassium 2.6 L* (3.4-5.0) mmol/L Chloride 103 (98-107) mmol/L Carbon Dioxide 24 (22-30) mmol/L BUN 19 (9-20) mg/dL Creatinine 1.40 H (0.7-1.3) mg/dL Glucose 140 H (65-110) mg/dL Calcium 8.2 L (8.4-10.2) mg/dL Total Bilirubin 0.5 (0.2-1.3) mg/dL AST 24 (17-59) U/L ALT 11 (6-50) U/L Alkaline Phosphatase 73 (38-126) U/L Total Protein 6.0 L (6.3-8.2) g/dL Albumin 3.2 L (3.5-5.1) g/dL All other labs normal.
[2024-10-21] MEDS: VANCOMYCIN 1,250 MG/NS 250 ML 1,250 MG/250 ML BAG 125 MG IVPB (12:53)
[2024-10-21] MEDS: WATER FOR IRRIGATION, STERILE 1,000 ML BOTTLE 1000 ML (12:53)
[2024-10-21 14:29] LABS: Magnesium 2.5 mg/dL (1.6-2.3); Potassium 3.3 mmol/L (3.4-5.0)
[2024-10-21] MEDS: POTASSIUM CHLORIDE INJ 40 MEQ in SODIUM CHLORIDE 0.9% IV 500 ML 130 ML IV CONT (16:37)
[2024-10-21 16:50] LABS: Glucose Point of Care 97 mg/dl (65-105)
--- NOTE | 2024-10-21 17:19 | PM.IMPN ---
Progress Note: A&P Assessment and Plan (1) DKA (diabetic ketoacidosis): Qualifiers: Diabetes mellitus complication detail: without coma Diabetes mellitus type: type 2 Qualified Code(s): E11.10 - Type 2 diabetes mellitus with ketoacidosis without coma Code(s): E11.10 - Type 2 diabetes mellitus with ketoacidosis without coma Status: Acute Assessment and Plan: 10/19/2024: Patient presented with nausea, vomiting, hyperglycemia likely noncompliant with his medications as he lost his insurance according to the patient -blood sugars were 511, anion gap 30, elevated beta hydroxybutyrate -patient diagnosed with diabetic ketoacidosis, given 2-1/2 L IV fluid bolus in the ER and started on insulin infusion per DKA protocol -likely cause could be related to infection of the diabetic foot wound -status post ICU due to insulin drip -currently patient on Lantus 40 units and SSI (2) Type 2 diabetes mellitus with hyperglycemia, with long-term current use of insulin: Code(s): E11.65 - Type 2 diabetes mellitus with hyperglycemia; Z79.4 - long term care administrator (current) use of insulin Status: Acute Assessment and Plan: Patient has history of diabetes, takes Lantus 40 units at home along with Jardiance -hemoglobin A1c > 14.0 this admission -crane hooker and dietitian has been consulted (3) Diabetic foot infection: Code(s): E11.628 - Type 2 diabetes mellitus with other skin complications; L08.9 - Local infection of the skin and subcutaneous tissue, unspecified Status: Acute Assessment and Plan: Patient has history of osteomyelitis, left foot foot with progression of chronic osteomyelitis, likely infectious left foot also -surgery has been consulted - possible left 5th toe transmetatarsal amputation and was to toe ulcer and possible amputation of the 1st toe -patient started on cefepime, vancomycin and metronidazole -10/19: blood and wound cultures have been obtained and pending CT scan of left foot : Progression of chronic osteomyelitis at the base of the 5th proximal phalanx at the head and neck of the 5th metatarsal. Chronic erosions at the head of the 1st proximal phalanx and at the base of the 4th metatarsal with location and appears most consistent with gout CT scan of the right foot: Status post amputation of the 5th metatarsal bone and digits. Sclerotic changes in the proximal 4th metatarsal bone which may be due to old fracture osteomyelitis. Ulceration seen in the areas of interphalangeal joint of the big toe with fat stranding seen in that area. Fat stranding also seen in the area of calcaneus subcutaneous tissue. Minimal soft tissue densities seen deep to the plantar fascia this may be infectious (4) Acute kidney injury superimposed on stage 3b chronic kidney disease: Code(s): N17.9 - Acute kidney failure, unspecified; N18.32 - Chronic kidney disease, stage 3b Status: Acute Assessment and Plan: Acute on chronic kidney disease likely related to hypovolemia/dehydration related to diabetic ketoacidosis and infection -adequately fluid-resuscitated -creatinine improving along with adequate urine output -continue to monitor renal function, electrolytes and urine output (5) N&V (nausea and vomiting): Code(s): R11.2 - Nausea with vomiting, unspecified Status: Acute Assessment and Plan: RESOLVED (6) Hypertension: Code(s): I10 - Essential (primary) hypertension Status: Acute Assessment and Plan: continue metoprolol and lisinopril PRN hydralazine HOLD HCTZ Plan DVT prophylaxis:lovenox Stress ulcer prophylaxis:Protonix Nutrition:diabetic diet Code Status:full code Subjective Date/time seen: 10/21/24 17:19 Interval history: Patient has uncontrolled diabetes. Previous history of 2 times toe amputation. Recently patient was not taking his medications due to insurance issue and was admitted due to DKA Patient was evaluated by surgery and possible left 5th toe transmetatarsal amputation and was to toe ulcer and possible amputation of the 1st toe. Potassium has been replenished Review of Systems Review of Systems: 12 systems were reviewed and are negative except for as per HPI. All systems reviewed & are unremarkable except as noted in HPI and below Exam Narrative: General: Pleasant gentleman in no acute distress HEENT:? Pupils equal and reactive, sclera is clear Neck:? Supple Respiratory:? Acute clear to auscultation bilaterally, no wheezing, adequate air entry Cardiac:? S1-S2 is normal, regular rate and rhythm Abdomen:? Soft, nontender, nondistended, normoactive bowel so Extremities: No edema, palpable pedal pulses bilaterally. Neuro:? Alert, awake, oriented x3, nonfocal Skin:? A night foot plantar surface wound with necrosis and eschar, left foot plantar surface wound noted Psych:? Normal mentation and affect Objective Data Vital Signs Vital Signs: Vital Signs - 24 hr 10/20/24 20:00 10/20/24 20:33 10/20/24 22:00 Temperature 97.4 F L Pulse Rate 86 86 86 Respiratory Rate 18 18 Blood Pressure 173/87 H Pulse Oximetry 98 99 Oxygen Delivery Room Air 10/21/24 06:00 10/21/24 08:00 10/21/24 14:00 Temperature 98.1 F 96.8 F L Pulse Rate 84 84 73 Respiratory Rate 18 18 16 Blood Pressure 165/82 H 129/83 Pulse Oximetry 99 99 99 Oxygen Delivery Room Air Intake/Output Intake/Output: Intake & Output 10/18/24 10/19/24 10/20/24 10/21/24 23:59 23:59 23:59 23:59 Intake Total 3003.0 3090.2 2880 Output Total 600 1850 Balance 2403.0 1240.2 2880 Meds/Results Medications: Active Medications Generic Name Dose Route Start Last Admin Trade Name Freq PRN Reason Stop Dose Admin Buspirone HCl 10 mg 10/21/24 09:00 10/21/24 08:13 Buspirone Hcl 5 Mg Tablet PO 10 mg Q12HR KEEGAN Administration Dextrose 12.5 gm 10/20/24 09:58 Dextrose 50% 25 Gm/50 Ml Syringe IV PUSH PRN PRN Hypoglycemia Protocol Empagliflozin 25 mg 10/20/24 09:00 10/21/24 08:13 Empagliflozin 25 Mg Tablet PO 25 mg DAILY KEEGAN Administration Glucagon 1 mg 10/20/24 09:58 Glucagon For Inj 1 Mg Vial IM PRN PRN Hypoglycemia Protocol Glucose 15 gm 10/20/24 09:58 Glucose Oral Gel 15 Gm Of Glucse In 37.5 Gm Tube PO PRN PRN Hypoglycemia Protocol Hydralazine HCl 10 mg 10/20/24 07:43 10/21/24 05:20 Hydralazine Hcl 20 Mg/Ml Vial IV PUSH 10 mg Q4H PRN Administration Blood Pressure - High Hydrochlorothiazide 12.5 mg 10/20/24 09:00 Hydrochlorothiazide 12.5 Mg Capsule PO QAM KEEGAN Cefepime HCl 1 gm in 50 mls @ 100 mls/hr 10/20/24 05:00 10/21/24 16:37 Maxipime 1 Gm/Ns 50 Ml IVPB 100 mls/hr Q12H KEEGAN Administration Metronidazole 500 mg in 100 mls @ 100 mls/hr 10/19/24 22:00 10/21/24 16:45 Flagyl 500 Mg/Iso Soln 100 Ml IVPB Infused Q8H KEEGAN Infusion Dextrose 1,000 mls @ 100 mls/hr 10/20/24 09:58 Dextrose 5% 1,000 Ml IVPB PRN PRN Hypoglycemia Protocol Vancomycin HCl 1,250 mg in 250 mls @ 125 mls/hr 10/21/24 11:00 10/21/24 16:45 Vancomycin 1,250 Mg/Ns 250 Ml IVPB Infused Q12H KEEGAN Infusion Potassium Chloride 40 meq/ 520 mls @ 130 mls/hr 10/21/24 16:30 10/21/24 16:37 Sodium Chloride IV CONT 10/21/24 20:29 130 mls/hr .Q4H ONE Administration Insulin Aspart 2 - 4 units 10/20/24 21:00 10/20/24 20:33 Insulin Aspart (*Bkc) 100 Units/Ml SUB-Q Not Given HS KEEGAN Protocol Insulin Aspart 4 - 8 units 10/20/24 12:00 10/21/24 16:44 Insulin Aspart (*Bkc) 100 Units/Ml SUB-Q Not Given TIDWM [facility] Protocol Insulin Glargine 40 units 10/20/24 10:00 10/21/24 08:17 Insulin Glargine (*Bkc) 100 Units/Ml SUB-Q 40 units DAILY KEEGAN Administration Lisinopril 20 mg 10/20/24 09:00 10/21/24 08:13 Lisinopril 20 Mg Tablet PO 20 mg QAM KEEGAN Administration Metoclopramide HCl 10 mg 10/20/24 07:42 10/20/24 22:59 Metoclopramide Hcl Inj 10 Mg/2 Ml Vial IV PUSH 10 mg Q6HR PRN Administration nausea/vomiting Metoprolol Tartrate 50 mg 10/19/24 22:40 10/21/24 08:13 Metoprolol Tartrate 50 Mg Tab PO 50 mg Q12HR KEEGAN Administration Pantoprazole Sodium 40 mg 10/20/24 09:00 10/21/24 08:21 Pantoprazole Sodium Iv 40 Mg Vial IV PUSH 40 mg QAM KEEGAN Administration Prochlorperazine Edisylate 10 mg 10/19/24 17:54 10/20/24 20:35 Prochlorperazine Edisylate 10 Mg/2 Ml Vial IV PUSH 10 mg Q6H PRN Administration Nausea And Vomiting Prochlorperazine Edisylate 10 mg 10/20/24 07:42 Prochlorperazine Edisylate 10 Mg/2 Ml Vial IV PUSH Q6H PRN Nausea And Vomiting Sertraline HCl 100 mg 10/19/24 22:40 10/20/24 20:33 Sertraline Hcl 50 Mg Tablet PO 100 mg HS KEEGAN Administration Simvastatin 20 mg 10/19/24 22:45 10/20/24 20:33 Simvastatin 20 Mg Tablet PO 20 mg HS KEEGAN Administration Radiology Results: ITS Impressions Foot CT 10/19/24 15:24 IMPRESSION: 1. . Progression of likely ongoing chronic osteomyelitis at the base of the fifth proximal phalanx at the head and neck of the fifth metatarsal. 2. Chronic erosions at the head of the first proximal phalanx and at the base of the fourth metatarsal with location and appearance most consistent with gout. Labs Labs: Laboratory Results - last 24 hr 10/20/24 10/21/24 10/21/24 20:17 07:49 08:08 WBC 16.0 H RBC 4.74 Hgb 12.0 L Hct 38.7 L MCV 81.6 MCH 25.3 L MCHC 31.0 L RDW 15.2 H Plt Count 291 MPV 10.2 Immature Gran % (Auto) 2.4 H Neut % (Auto) 81.8 H Lymph % (Auto) 9.4 L Wheeler % (Auto) 6.2 Eos % (Auto) 0.0 Baso % (Auto) 0.2 Lymph # (Auto) 1.51 Wheeler # (Auto) 1.0 H Eos # (Auto) 0.0 Baso # (Auto) 0.0 Abs Immat Gran (auto) 0.38 H Absolute Neuts (auto) 13.1 H Absolute Nucleated RBC 0.000 Nucleated RBC % 0.0 Sodium 135 L Potassium 2.6 L* Chloride 103 Carbon Dioxide 24 Anion Gap 8 BUN 19 Creatinine 1.40 H Estim Creat Clear Calc 64 Estimated GFR 54 L Glucose 140 H POC Capillary Glucose 99 134 H Calcium 8.2 L Phosphorus 3.5 Magnesium 1.7 Total Bilirubin 0.5 AST 24 ALT 11 Alkaline Phosphatase 73 Total Protein 6.0 L Albumin 3.2 L Random Vancomycin 20.9 H 10/21/24 10/21/24 10/21/24 11:10 14:14 16:40 WBC RBC Hgb Hct MCV MCH MCHC RDW Plt Count MPV Immature Gran % (Auto) Neut % (Auto) Lymph % (Auto) Wheeler % (Auto) Eos % (Auto) Baso % (Auto) Lymph # (Auto) Wheeler # (Auto) Eos # (Auto) Baso # (Auto) Abs Immat Gran (auto) Absolute Neuts (auto) Absolute Nucleated RBC Nucleated RBC % Sodium Potassium 3.3 L Chloride Carbon Dioxide Anion Gap BUN Creatinine Estim Creat Clear Calc Estimated GFR Glucose POC Capillary Glucose 152 H 97 Calcium Phosphorus Magnesium 2.5 H Total Bilirubin AST ALT Alkaline Phosphatase Total Protein Albumin Random Vancomycin Quality VTE Prophylaxis VTE prophylaxis: pharmacologic ordered Hospitalist MIPS Advance Care Plan I have confirmed that the patient's Advanced Care Plan is present, code status is documented, or surrogate decision maker is listed in patient medical record.: Yes Medication Reconciliation I have utilized all available resources to obtain, update and review the patients current medications (includes all prescriptions, OTC, herbals, cannabis, and nutritional supplements).: Yes
[2024-10-21] MEDS: SERTRALINE HCL 50 MG TABLET 100 MG PO (21:20)
[2024-10-21] MEDS: SIMVASTATIN 20 MG TABLET PO (21:20)
[2024-10-21 21:37] LABS: Glucose Point of Care 108 mg/dl (65-105)
[2024-10-22] MEDS: VANCOMYCIN 1,250 MG/NS 250 ML 1,250 MG/250 ML BAG 125 MG IVPB (00:25)
[2024-10-22] MEDS: CEFEPIME 1 GM/NS 50 ML 1 GM/50 ML BAG IVPB (04:25)
[2024-10-22] MEDS: metroNIDAZOLE 500 MG/ISO 100ML 500 MG/100 ML BAG 100 MG IVPB ×3 (04:58→21:02)
[2024-10-22 05:54] VITALS: BP 162/89; PULSE 77; RESP 18; TEMP 36.2; O2SAT 97
--- NOTE | 2024-10-22 07:31 | PCWOUND ---
WOCN Note Received referral to see patient at admission over the weekend. No wound care assessment needed at this time, patient is being followed by general surgeon.
[2024-10-22 07:42] LABS: Glucose Point of Care 107 mg/dl (65-105)
[2024-10-22 08:00] VITALS: PULSE 77; RESP 18; O2SAT 97
[2024-10-22] MEDS: METOPROLOL TARTRATE 50 MG TAB PO ×2 (09:02→21:03)
[2024-10-22] MEDS: lisinopriL 20 MG TABLET PO (09:02)
[2024-10-22] MEDS: EMPAGLIFLOZIN 25 MG TABLET PO (09:02)
[2024-10-22] MEDS: busPIRone HCL 5 MG TABLET 10 MG PO ×2 (09:02→21:02)
[2024-10-22] MEDS: INSULIN GLARGINE (*BKC) 100 UNITS/ML 40 UNITS SUB-Q (09:03)
[2024-10-22] MEDS: PANTOPRAZOLE SODIUM IV 40 MG VIAL IV PUSH (09:03)
[2024-10-22 10:09] LABS: Hematocrit 40.8 % (42.0-52.0); Mean Corpuscular HGB Conc 29.4 g/dl (32-36); Mean Corpuscular Hemoglobin 25.1 pg (26-34); Mean Corpuscular Volume 85.4 fl (80-100); Mean Platelet Volume 10.2 fl (7.4-10.4); Platelet Count Result 250 k/mm3 (150-375); Red Blood Count 4.78 M/mm3 (4.6-6.20); White Blood Count 9.8 K/mm3 (4.5-10.0)
[2024-10-22 10:21] LABS: Alanine Aminotransferase 13 U/L (6-50); Albumin Level 3.3 g/dL (3.5-5.1); Alkaline Phosphatase 81 U/L (38-126); Anion Gap 8 mmol/L (4-12); Aspartate Amino Transferase 24 U/L (17-59); Bilirubin,Total 0.6 mg/dL (0.2-1.3); Blood Urea Nitrogen 16 mg/dL (9-20); Calcium 8.2 mg/dL (8.4-10.2); Carbon Dioxide 23 mmol/L (22-30); Chloride 106 mmol/L (98-107); Estimated CRCL calculation 67 ml/min; Estimated Glomerular Filt Rate 57; Glucose 185 mg/dL (65-110); Potassium 3.7 mmol/L (3.4-5.0); Sodium 137 mmol/L (137-145); Total Protein 6.4 g/dL (6.3-8.2)
[2024-10-22 10:24] LABS: Vancomycin Trough 27.8 ug/mL (10.0-20.0)
--- NOTE | 2024-10-22 10:24 | P.PNGS_ITS ---
Progress Note: A&P Assessment and Plan (1) Ulcer of left fifth toe due to diabetes mellitus: Code(s): E11.621 - Type 2 diabetes mellitus with foot ulcer; L97.529 - Non-pressure chronic ulcer of other part of left foot with unspecified severity Status: Chronic Assessment and Plan: * Continue silver gel dressing changes daily. * Will proceed with debridement left 5th metatarsal ulcer by Dr. Dumont tomorrow. NPO after midnight. * Postop shoe at bedside to wear with ambulation/transfers, patient educated on use and has used them in the past (2) Ulcer of right great toe due to diabetes mellitus: Code(s): E11.621 - Type 2 diabetes mellitus with foot ulcer; L97.519 - Non-pressure chronic ulcer of other part of right foot with unspecified severity Status: Acute Assessment and Plan: * Continue silver gel dressing changes daily. * Will proceed with debridement right first toe ulcer by Dr. Dumont tomorrow. * Postop shoe at bedside to wear with ambulation/transfers (3) Noncompliance: Code(s): Z91.19 - Patient's noncompliance with other medical treatment and regimen Status: Chronic Assessment and Plan: * Both with diabetes and with recommended foot care. (4) Uncontrolled diabetes mellitus: Qualifiers: Diabetes mellitus type: type 2 Glycemic state: with hyperglycemia Qualified Code(s): E11.65 - Type 2 diabetes mellitus with hyperglycemia Status: Chronic Assessment and Plan: * Presented with DKA on this admission and Hemoglobin A1c was over 14. Management per Hospitalist. (5) Diabetic foot infection: Code(s): E11.628 - Type 2 diabetes mellitus with other skin complications; L08.9 - Local infection of the skin and subcutaneous tissue, unspecified Status: Acute Assessment and Plan: * Probably only the left 5th metatarsal with chronic osteomyelitis. Neither foot has significant swelling, erythema, or purulent drainage. (6) History of amputation of lesser toe of left foot: Code(s): Z89.422 - Acquired absence of other left toe(s) Status: Chronic Assessment and Plan: * Fourth toe transmetatarsal open amputation 12/09/2023 (7) History of amputation of right fifth toe: Code(s): Z89.421 - Acquired absence of other right toe(s) Status: Chronic Assessment and Plan: * Right 5th metatarsal amputation 08/02/2019 Plan I have discussed the patient's case and plan of care with Dr. Dumont. Subjective Subjective Date/Time Seen: 10/22/24 10:24 Patient reports: no new complaints Interval history: Patient with IDDM type 2 with chronic issues with bilateral diabetic foot ulcers and history of noncompliance. He was admitted with DKA, which has been treated and resolved. He is being followed for his bilateral foot ulcers. Patient with no complaints of pain or other issues at this time. Per nursing, they have had a hard time drawing blood from him in the am and difficulty with getting peripheral IVs. Vascular access at the bedside and Hospitalist ordered PICC line. Exam Const: General: comfortable and no acute distress Nutritional Appearance: average body habitus Orientation/consciousness: patient oriented x3 Extrem: Other: Left foot with an open ulcer surrounded by hard callus on the plantar surface of the 5th metatarsal extending to the lateral side of the foot that is dry with no purulent drainage, no surrounding erythema or swelling. Right foot with a plantar ulcer at the proximal great toe with hard, dry callus circumferentially around the ulcer. There is a foul odor and loose lint covering the ulcer, which once this was cleaned, the wound bed appeared pale pink without necrotic tissue. No edema, erythema, or warmth around this ulcer. Bilateral foot ulcers covered with silver gel, 4x4 gauze, and kerlex rolled gauze. Objective Data Vital Signs Vital Signs: Vital Signs - 24 hr 10/21/24 14:00 10/21/24 20:00 10/21/24 20:09 Temperature 96.8 F L Pulse Rate 73 81 83 Respiratory Rate 16 18 20 Blood Pressure 129/83 Pulse Oximetry 99 97 98 Oxygen Delivery Room Air Room Air Fraction of Inspired Oxygen 21 21 10/21/24 21:20 10/21/24 21:46 10/22/24 05:54 Temperature 98 F 97.2 F L Pulse Rate 82 81 77 Respiratory Rate 18 18 Blood Pressure 156/90 H 162/89 H Pulse Oximetry 97 97 Oxygen Delivery Fraction of Inspired Oxygen Intake/Output Intake/Output: Intake & Output 10/19/24 10/20/24 10/21/24 10/22/24 23:59 23:59 23:59 23:59 Intake Total 3003.0 3090.2 3270 2650 Output Total 600 1850 Balance 2403.0 1240.2 3270 3740 Meds/Results Medications: Active Medications Generic Name Dose Route Start Last Admin Trade Name Freq PRN Reason Stop Dose Admin Buspirone HCl 10 mg 10/21/24 09:00 10/22/24 09:02 Buspirone Hcl 5 Mg Tablet PO 10 mg Q12HR KEEGAN Administration Dextrose 12.5 gm 10/20/24 09:58 Dextrose 50% 25 Gm/50 Ml Syringe IV PUSH PRN PRN Hypoglycemia Protocol Empagliflozin 25 mg 10/20/24 09:00 10/22/24 09:02 Empagliflozin 25 Mg Tablet PO 25 mg DAILY KEEGAN Administration Glucagon 1 mg 10/20/24 09:58 Glucagon For Inj 1 Mg Vial IM PRN PRN Hypoglycemia Protocol Glucose 15 gm 10/20/24 09:58 Glucose Oral Gel 15 Gm Of Glucse In 37.5 Gm Tube PO PRN PRN Hypoglycemia Protocol Hydralazine HCl 10 mg 10/20/24 07:43 10/21/24 05:20 Hydralazine Hcl 20 Mg/Ml Vial IV PUSH 10 mg Q4H PRN Administration Blood Pressure - High Hydrochlorothiazide 12.5 mg 10/20/24 09:00 Hydrochlorothiazide 12.5 Mg Capsule PO QAM KEEGAN Metronidazole 500 mg in 100 mls @ 100 mls/hr 10/19/24 22:00 10/22/24 05:58 Flagyl 500 Mg/Iso Soln 100 Ml IVPB Infused Q8H KEEGAN Infusion Dextrose 1,000 mls @ 100 mls/hr 10/20/24 09:58 Dextrose 5% 1,000 Ml IVPB PRN PRN Hypoglycemia Protocol Vancomycin HCl 1,250 mg in 250 mls @ 125 mls/hr 10/21/24 11:00 10/22/24 02:25 Vancomycin 1,250 Mg/Ns 250 Ml IVPB Infused Q12H KEEGAN Infusion Cefepime HCl 2 gm in 50 mls @ 100 mls/hr 10/22/24 17:00 Maxipime 2 Gm/Ns 50 Ml IVPB Q12H KEEGAN Insulin Aspart 2 - 4 units 10/20/24 21:00 10/21/24 21:24 Insulin Aspart (*Bkc) 100 Units/Ml SUB-Q Not Given HS [facility] Protocol Insulin Aspart 4 - 8 units 10/20/24 12:00 10/22/24 09:01 Insulin Aspart (*Bkc) 100 Units/Ml SUB-Q Not Given TIDWM [facility] Protocol Insulin Glargine 40 units 10/20/24 10:00 10/22/24 09:03 Insulin Glargine (*Bkc) 100 Units/Ml SUB-Q 40 units DAILY KEEGAN Administration Lisinopril 20 mg 10/20/24 09:00 10/22/24 09:02 Lisinopril 20 Mg Tablet PO 20 mg QAM KEEGAN Administration Metoclopramide HCl 10 mg 10/20/24 07:42 10/20/24 22:59 Metoclopramide Hcl Inj 10 Mg/2 Ml Vial IV PUSH 10 mg Q6HR PRN Administration nausea/vomiting Metoprolol Tartrate 50 mg 10/19/24 22:40 10/22/24 09:02 Metoprolol Tartrate 50 Mg Tab PO 50 mg Q12HR KEEGAN Administration Pantoprazole Sodium 40 mg 10/20/24 09:00 10/22/24 09:03 Pantoprazole Sodium Iv 40 Mg Vial IV PUSH 40 mg QAM KEEGAN Administration Prochlorperazine Edisylate 10 mg 10/19/24 17:54 10/20/24 20:35 Prochlorperazine Edisylate 10 Mg/2 Ml Vial IV PUSH 10 mg Q6H PRN Administration Nausea And Vomiting Prochlorperazine Edisylate 10 mg 10/20/24 07:42 Prochlorperazine Edisylate 10 Mg/2 Ml Vial IV PUSH Q6H PRN Nausea And Vomiting Sertraline HCl 100 mg 10/19/24 22:40 10/21/24 21:20 Sertraline Hcl 50 Mg Tablet PO 100 mg HS KEEGAN Administration Simvastatin 20 mg 10/19/24 22:45 10/21/24 21:20 Simvastatin 20 Mg Tablet PO 20 mg HS KEEGAN Administration Radiology Results: ITS Impressions Foot CT 10/19/24 15:24 IMPRESSION: 1. . Progression of likely ongoing chronic osteomyelitis at the base of the fifth proximal phalanx at the head and neck of the fifth metatarsal. 2. Chronic erosions at the head of the first proximal phalanx and at the base of the fourth metatarsal with location and appearance most consistent with gout. Labs Labs: Laboratory Results - last 24 hr 10/21/24 10/21/24 10/21/24 11:10 14:14 16:40 Sodium Potassium 3.3 L Chloride Carbon Dioxide Anion Gap BUN Creatinine Estim Creat Clear Calc Estimated GFR Glucose POC Capillary Glucose 152 H 97 Calcium Magnesium 2.5 H Total Bilirubin AST ALT Alkaline Phosphatase Total Protein Albumin Vancomycin Trough 10/21/24 10/22/24 10/22/24 21:23 07:24 10:03 Sodium 137 Potassium 3.7 Chloride 106 Carbon Dioxide 23 Anion Gap 8 BUN 16 Creatinine 1.35 H Estim Creat Clear Calc 67 Estimated GFR 57 L Glucose 185 H POC Capillary Glucose 108 H 107 H Calcium 8.2 L Magnesium Total Bilirubin 0.6 AST 24 ALT 13 Alkaline Phosphatase 81 Total Protein 6.4 Albumin 3.3 L Vancomycin Trough 27.8 H
[2024-10-22 11:39] LABS: Glucose Point of Care 181 mg/dl (65-105)
[2024-10-22 12:30] VITALS: BMI 25.4
[2024-10-22] MEDS: LIDOCAINE 1% PF INJ 5 ML VIAL INFILTRATE (13:25)
[2024-10-22 14:00] VITALS: BP 149/97; PULSE 76; RESP 18; TEMP 36.2; O2SAT 100
--- NOTE | 2024-10-22 14:34 | PM.IMPN ---
Progress Note: A&P Assessment and Plan (1) DKA (diabetic ketoacidosis): Qualifiers: Diabetes mellitus complication detail: without coma Diabetes mellitus type: type 2 Qualified Code(s): E11.10 - Type 2 diabetes mellitus with ketoacidosis without coma Code(s): E11.10 - Type 2 diabetes mellitus with ketoacidosis without coma Status: Acute Assessment and Plan: 10/19/2024: Patient presented with nausea, vomiting, hyperglycemia likely noncompliant with his medications as he lost his insurance according to the patient -blood sugars were 511, anion gap 30, elevated beta hydroxybutyrate -patient diagnosed with diabetic ketoacidosis, given 2-1/2 L IV fluid bolus in the ER and started on insulin infusion per DKA protocol -likely cause could be related to infection of the diabetic foot wound -status post ICU due to insulin drip -currently patient on Lantus 40 units and SSI (2) Type 2 diabetes mellitus with hyperglycemia, with long-term current use of insulin: Code(s): E11.65 - Type 2 diabetes mellitus with hyperglycemia; Z79.4 - vision care associate (current) use of insulin Status: Acute Assessment and Plan: Patient has history of diabetes, takes Lantus 40 units at home along with Jardiance -hemoglobin A1c > 14.0 this admission -certified adaptive physical educator and dietitian has been consulted (3) Diabetic foot infection: Code(s): E11.628 - Type 2 diabetes mellitus with other skin complications; L08.9 - Local infection of the skin and subcutaneous tissue, unspecified Status: Acute Assessment and Plan: Patient has history of osteomyelitis, left foot foot with progression of chronic osteomyelitis, likely infectious left foot also -surgery has been consulted - possible left 5th toe transmetatarsal amputation and was to toe ulcer and possible amputation of the 1st toe -patient started on cefepime, vancomycin and metronidazole -10/19: blood and wound cultures have been obtained and pending CT scan of left foot : Progression of chronic osteomyelitis at the base of the 5th proximal phalanx at the head and neck of the 5th metatarsal. Chronic erosions at the head of the 1st proximal phalanx and at the base of the 4th metatarsal with location and appears most consistent with gout CT scan of the right foot: Status post amputation of the 5th metatarsal bone and digits. Sclerotic changes in the proximal 4th metatarsal bone which may be due to old fracture osteomyelitis. Ulceration seen in the areas of interphalangeal joint of the big toe with fat stranding seen in that area. Fat stranding also seen in the area of calcaneus subcutaneous tissue. Minimal soft tissue densities seen deep to the plantar fascia this may be infectious For Decridemtn of tight foot adn digit ampuration of left foot (4) Acute kidney injury superimposed on stage 3b chronic kidney disease: Code(s): N17.9 - Acute kidney failure, unspecified; N18.32 - Chronic kidney disease, stage 3b Status: Acute Assessment and Plan: Acute on chronic kidney disease likely related to hypovolemia/dehydration related to diabetic ketoacidosis and infection -adequately fluid-resuscitated resovled ad Cr 1.35 at baseline (5) N&V (nausea and vomiting): Code(s): R11.2 - Nausea with vomiting, unspecified Status: Acute Assessment and Plan: RESOLVED (6) Hypertension: Code(s): I10 - Essential (primary) hypertension Status: Acute Assessment and Plan: continue metoprolol and lisinopril PRN hydralazine HOLD HCTZ Plan DVT prophylaxis:lovenox Stress ulcer prophylaxis:Protonix Nutrition:diabetic diet Code Status:full code Subjective Date/time seen: 10/22/24 14:34 Interval history: Comfortable at bedside and awaiting right foot debridement and left digit amputation Review of Systems Review of Systems: 12 systems were reviewed and are negative except for as per HPI. All systems reviewed & are unremarkable except as noted in HPI and below Exam Narrative: General: Pleasant gentleman in no acute distress HEENT:? Pupils equal and reactive, sclera is clear Neck:? Supple Respiratory:? Acute clear to auscultation bilaterally, no wheezing, adequate air entry Cardiac:? S1-S2 is normal, regular rate and rhythm Abdomen:? Soft, nontender, nondistended, normoactive bowel so Extremities: No edema, palpable pedal pulses bilaterally. Neuro:? Alert, awake, oriented x3, nonfocal Skin:? A night foot plantar surface wound with necrosis and eschar, left foot plantar surface wound noted Psych:? Normal mentation and affect Objective Data Vital Signs Vital Signs: Vital Signs - 24 hr 10/21/24 20:00 10/21/24 20:09 10/21/24 21:20 Temperature Pulse Rate 81 83 82 Respiratory Rate 18 20 Blood Pressure Pulse Oximetry 97 98 Oxygen Delivery Room Air Room Air Fraction of Inspired Oxygen 21 21 10/21/24 21:46 10/22/24 05:54 10/22/24 08:00 Temperature 98 F 97.2 F L Pulse Rate 81 77 77 Respiratory Rate 18 18 18 Blood Pressure 156/90 H 162/89 H Pulse Oximetry 97 97 97 Oxygen Delivery Room Air Fraction of Inspired Oxygen 21 Intake/Output Intake/Output: Intake & Output 10/19/24 10/20/24 10/21/24 10/22/24 23:59 23:59 23:59 23:59 Intake Total 3003.0 3090.2 3270 2650 Output Total 600 1850 Balance 2403.0 1240.2 3270 2650 Meds/Results Medications: Active Medications Generic Name Dose Route Start Last Admin Trade Name Freq PRN Reason Stop Dose Admin Buspirone HCl 10 mg 10/21/24 09:00 10/22/24 09:02 Buspirone Hcl 5 Mg Tablet PO 10 mg Q12HR KEEGAN Administration Dextrose 12.5 gm 10/20/24 09:58 Dextrose 50% 25 Gm/50 Ml Syringe IV PUSH PRN PRN Hypoglycemia Protocol Empagliflozin 25 mg 10/20/24 09:00 10/22/24 09:02 Empagliflozin 25 Mg Tablet PO 25 mg DAILY KEEGNA Administration Glucagon 1 mg 10/20/24 09:58 Glucagon For Inj 1 Mg Vial IM PRN PRN Hypoglycemia Protocol Glucose 15 gm 10/20/24 09:58 Glucose Oral Gel 15 Gm Of Glucse In 37.5 Gm Tube PO PRN PRN Hypoglycemia Protocol Hydralazine HCl 10 mg 10/20/24 07:43 10/21/24 05:20 Hydralazine Hcl 20 Mg/Ml Vial IV PUSH 10 mg Q4H PRN Administration Blood Pressure - High Hydrochlorothiazide 12.5 mg 10/20/24 09:00 Hydrochlorothiazide 12.5 Mg Capsule PO QAM KEEGAN Metronidazole 500 mg in 100 mls @ 100 mls/hr 10/19/24 22:00 10/22/24 14:26 Flagyl 500 Mg/Iso Soln 100 Ml IVPB 100 mls/hr Q8H KEEGAN Administration Dextrose 1,000 mls @ 100 mls/hr 10/20/24 09:58 Dextrose 5% 1,000 Ml IVPB PRN PRN Hypoglycemia Protocol Vancomycin HCl 1,250 mg in 250 mls @ 125 mls/hr 10/21/24 11:00 10/22/24 02:25 Vancomycin 1,250 Mg/Ns 250 Ml IVPB Infused Q12H [facility] Infusion Cefepime HCl 2 gm in 50 mls @ 100 mls/hr 10/22/24 17:00 Maxipime 2 Gm/Ns 50 Ml IVPB Q12H [facility] Insulin Aspart 2 - 4 units 10/20/24 21:00 10/21/24 21:24 Insulin Aspart (*Bkc) 100 Units/Ml SUB-Q Not Given HS [facility] Protocol Insulin Aspart 4 - 8 units 10/20/24 12:00 10/22/24 12:09 Insulin Aspart (*Bkc) 100 Units/Ml SUB-Q Not Given TIDWM [facility] Protocol Insulin Glargine 40 units 10/20/24 10:00 10/22/24 09:03 Insulin Glargine (*Bkc) 100 Units/Ml SUB-Q 40 units DAILY KEEGAN Administration Lisinopril 20 mg 10/20/24 09:00 10/22/24 09:02 Lisinopril 20 Mg Tablet PO 20 mg QAM KEEGAN Administration Metoclopramide HCl 10 mg 10/20/24 07:42 10/20/24 22:59 Metoclopramide Hcl Inj 10 Mg/2 Ml Vial IV PUSH 10 mg Q6HR PRN Administration nausea/vomiting Metoprolol Tartrate 50 mg 10/19/24 22:40 10/22/24 09:02 Metoprolol Tartrate 50 Mg Tab PO 50 mg Q12HR KEEGAN Administration Pantoprazole Sodium 40 mg 10/20/24 09:00 10/22/24 09:03 Pantoprazole Sodium Iv 40 Mg Vial IV PUSH 40 mg QAM KEEGAN Administration Prochlorperazine Edisylate 10 mg 10/19/24 17:54 10/20/24 20:35 Prochlorperazine Edisylate 10 Mg/2 Ml Vial IV PUSH 10 mg Q6H PRN Administration Nausea And Vomiting Prochlorperazine Edisylate 10 mg 10/20/24 07:42 Prochlorperazine Edisylate 10 Mg/2 Ml Vial IV PUSH Q6H PRN Nausea And Vomiting Sertraline HCl 100 mg 10/19/24 22:40 10/21/24 21:20 Sertraline Hcl 50 Mg Tablet PO 100 mg HS KEEGAN Administration Simvastatin 20 mg 10/19/24 22:45 10/21/24 21:20 Simvastatin 20 Mg Tablet PO 20 mg HS KEEGAN Administration Sodium Chloride 10 ml 10/22/24 22:00 Central Line Flush IV PUSH Q8HR KEEGAN Sodium Chloride 10 ml 10/22/24 14:15 Central Line Flush IV PUSH PRN PRN with TPN bag changes Sodium Chloride 20 ml 10/22/24 14:15 Central Line Flush IV PUSH PRN PRN after blood draws Radiology Results: ITS Impressions Foot CT 10/19/24 15:24 IMPRESSION: 1. . Progression of likely ongoing chronic osteomyelitis at the base of the fifth proximal phalanx at the head and neck of the fifth metatarsal. 2. Chronic erosions at the head of the first proximal phalanx and at the base of the fourth metatarsal with location and appearance most consistent with gout. Labs Labs: Laboratory Results - last 24 hr 10/21/24 10/21/24 10/22/24 16:40 21:23 07:24 WBC RBC Hgb Hct MCV MCH MCHC RDW Plt Count MPV Sodium Potassium Chloride Carbon Dioxide Anion Gap BUN Creatinine Estim Creat Clear Calc Estimated GFR Glucose POC Capillary Glucose 97 108 H 107 H Calcium Total Bilirubin AST ALT Alkaline Phosphatase Total Protein Albumin Vancomycin Trough 10/22/24 10/22/24 10:03 11:34 WBC 9.8 RBC 4.78 Hgb 12.0 L Hct 40.8 L MCV 85.4 MCH 25.1 L MCHC 29.4 L RDW 15.0 H Plt Count 250 MPV 10.2 Sodium 137 Potassium 3.7 Chloride 106 Carbon Dioxide 23 Anion Gap 8 BUN 16 Creatinine 1.35 H Estim Creat Clear Calc 67 Estimated GFR 57 L Glucose 185 H POC Capillary Glucose 181 H Calcium 8.2 L Total Bilirubin 0.6 AST 24 ALT 13 Alkaline Phosphatase 81 Total Protein 6.4 Albumin 3.3 L Vancomycin Trough 27.8 H Quality VTE Prophylaxis VTE prophylaxis: pharmacologic ordered
--- NOTE | 2024-10-22 14:41 | PCDIET ---
Pt admitted with DKA. Pt reports he has no questions or concerns regarding nutrition and blood sugar control, understands how to control his blood sugars and count carbs. Pt also seen by family living educator.
[2024-10-22 16:14] LABS: Glucose Point of Care 275 mg/dl (65-105)
[2024-10-22] MEDS: CEFEPIME 2 GM/NS 50 ML 2 GM/50 ML BAG IVPB (16:50)
[2024-10-22] MEDS: INSULIN ASPART (*BKC) 100 UNITS/ML SUB-Q (16:50)
[2024-10-22 20:00] VITALS: PULSE 84; RESP 18; O2SAT 100
[2024-10-22] MEDS: SIMVASTATIN 20 MG TABLET PO (21:02)
[2024-10-22] MEDS: CENTRAL LINE FLUSH 10 ML IV PUSH (21:02)
[2024-10-22] MEDS: SERTRALINE HCL 50 MG TABLET 100 MG PO (21:02)
[2024-10-22 21:03] VITALS: PULSE 84
[2024-10-22 21:26] LABS: Glucose Point of Care 102 mg/dl (65-105)
[2024-10-22 22:00] VITALS: BP 156/93; PULSE 81; RESP 18; TEMP 36.8; O2SAT 100
[2024-10-23] VITALS (16 sets, daily range): BP systolic 108–162; BP diastolic 73–99; PULSE 72–101; RESP 12–20; TEMP 36–36.6; O2SAT 95–100
[2024-10-23] MEDS: CEFEPIME 2 GM/NS 50 ML 2 GM/50 ML BAG IVPB ×2 (04:40→17:54)
[2024-10-23 04:54] LABS: Basophils Percent Auto 0.1 % (0.2-1.2); Eosinophils Percent Auto 0.4 % (0-4.4); Hematocrit 37.8 % (42.0-52.0); Hemoglobin 11.5 g/dL (14.0-18.0); Immature Granulocyte Absolute 0.02 K/mm3 (0.00-0.031); Immature Granulocyte Percent A 0.3 % (0-0.5); Lymphocytes Absolute Auto 1.86 K/mm3 (0.9-3.2); Lymphocytes Percent Auto 25.7 % (18.3-44.2); Mean Corpuscular HGB Conc 30.4 g/dl (32-36); Mean Corpuscular Hemoglobin 24.9 pg (26-34); Mean Corpuscular Volume 81.8 fl (80-100); Mean Platelet Volume 10.5 fl (7.4-10.4); Monocytes Absolute Auto 0.6 K/mm3 (0.1-0.6); Monocytes Percent Auto 8.8 % (2.6-8.5); Neutrophils Absolute Auto 4.7 K/mm3 (1.3-6.7); Neutrophils Percent Auto 64.7 % (45.5-73.1); Platelet Count Result 232 k/mm3 (150-375); Red Blood Count 4.62 M/mm3 (4.6-6.20); Red Cell Distribution Width 14.7 % (11.5-14.5); White Blood Count 7.3 K/mm3 (4.5-10.0)
[2024-10-23 05:15] LABS: Alanine Aminotransferase 13 U/L (6-50); Alkaline Phosphatase 96 U/L (38-126); Anion Gap 5 mmol/L (4-12); Aspartate Amino Transferase 21 U/L (17-59); Bilirubin,Total 0.3 mg/dL (0.2-1.3); Blood Urea Nitrogen 20 mg/dL (9-20); Calcium 8.3 mg/dL (8.4-10.2); Carbon Dioxide 30 mmol/L (22-30); Chloride 102 mmol/L (98-107); Estimated CRCL calculation 61 ml/min; Estimated Glomerular Filt Rate 51; Glucose 314 mg/dL (65-110); Magnesium 2.1 mg/dL (1.6-2.3); Sodium 137 mmol/L (137-145); Total Protein 5.8 g/dL (6.3-8.2)
[2024-10-23] MEDS: metroNIDAZOLE 500 MG/ISO 100ML 500 MG/100 ML BAG 100 MG IVPB ×2 (05:15→20:58)
[2024-10-23] MEDS: CENTRAL LINE FLUSH 20 ML IV PUSH (05:18)
[2024-10-23] MEDS: CENTRAL LINE FLUSH 10 ML IV PUSH ×2 (05:18→20:58)
[2024-10-23 05:26] LABS: Vancomycin Random 15.3 ug/mL (10-20)
[2024-10-23] MEDS: VANCOMYCIN 1,500 MG/NS 500 ML 1,500 MG/500 ML BAG 250 MG IVPB (06:23)
[2024-10-23 07:42] LABS: Glucose Point of Care 256 mg/dl (65-105)
[2024-10-23] MEDS: METOPROLOL TARTRATE 50 MG TAB PO ×2 (09:55→20:59)
[2024-10-23 11:22] LABS: Glucose Point of Care 161 mg/dl (65-105)
[2024-10-23] MEDS: LACTATED RINGERS 1,000 ML 30 ML IV CONT (12:00)
--- NOTE | 2024-10-23 12:01 | PC.NURSE ---
Patient off floor for surgery
[2024-10-23 12:02] LABS: Glucose Point of Care 123 mg/dl (65-105)
--- NOTE | 2024-10-23 12:36 | WPDHPUPDATE1 ---
History and Physical Update Update Date/Time: 10/23/24 12:36 History and Physical has been reviewed, including an updated exam of the patient. There are NO changes in the patient's condition. Risks, benefits, and alternatives have been discussed and questions answered. Patient agrees to proceed with procedure.
--- NOTE | 2024-10-23 13:04 | P.PNAN_ITS ---
Anes - Initial Pre Proc Eval Procedure: Operation Date: 10/23/24 13:00 Proposed Procedures p Debridement Left Fifth Metatarsal Ulcer, Debridment Right First Toe Ulcer - Kai Dumont MD Date/Time: 10/23/24 13:04 Surgeon: Tim Pre Op Diagnosis: Diabetic Foot Wounds,DKA Patient Data Age: 49 Gender: M Height: 1.83 m Weight: 85.6 kg Last Vital Signs Temp 36.6 C 10/23/24 06:00 Pulse 80 10/23/24 06:00 Resp 18 10/23/24 06:00 BP 160/95 H 10/23/24 06:00 Pulse Ox 100 10/23/24 06:00 O2 Del Method Room Air 10/22/24 20:00 FiO2 21 10/22/24 20:00 Allergies Allergy/AdvReac Type Severity Reaction Status Date / Time bee stings Allergy Unknown Unknown Uncoded 10/19/24 23:07 Home Medications ?Medication ?Instructions ?Recorded ?Confirmed ?Type metoprolol tartrate 50 mg tablet 50 mg PO BID 03/21/23 10/19/24 History omeprazole 20 mg capsule,delayed 20 mg PO DAILY 03/21/23 10/19/24 History release sertraline 50 mg tablet 100 mg PO DAILY 03/21/23 10/19/24 History simvastatin 20 mg tablet 20 mg PO HS 03/21/23 10/19/24 History insulin glargine 100 unit/mL 40 unit (0.4 mL) subcut QHS #10 mL 12/11/23 10/19/24 Rx subcutaneous solution (Lantus U-100 Insulin) buspirone 15 mg tablet 10 mg PO TID 10/19/24 10/19/24 History empagliflozin 25 mg tablet 25 mg PO DAILY 10/19/24 10/19/24 History (Jardiance) lisinopril 20 1 tablet PO DAILY 10/19/24 10/19/24 History mg-hydrochlorothiazide 12.5 mg tablet sertraline 100 mg tablet 100 mg PO Q24H 10/19/24 10/19/24 History Laboratory Tests 10/22/24 10/22/24 10/22/24 16:04 18:22 20:42 WBC RBC Hgb Hct MCV MCH MCHC RDW Plt Count MPV Immature Gran % (Auto) Neut % (Auto) Lymph % (Auto) [place] % (Auto) Eos % (Auto) Baso % (Auto) Lymph # (Auto) [place] # (Auto) Eos # (Auto) Baso # (Auto) Abs Immat Gran (auto) Absolute Neuts (auto) Absolute Nucleated RBC Nucleated RBC % Sodium Potassium Chloride Carbon Dioxide Anion Gap BUN Creatinine Estim Creat Clear Calc Estimated GFR Glucose POC Capillary Glucose 275 H mg/dl 102 mg/dl (65-105) (65-105) Calcium Magnesium Total Bilirubin AST ALT Alkaline Phosphatase Total Protein Albumin Random Vancomycin Blood Type B Positive Antibody Screen Negative 10/23/24 10/23/24 10/23/24 04:38 07:39 11:19 WBC 7.3 K/mm3 (4.5-10.0) RBC 4.62 M/mm3 (4.6-6.20) Hgb 11.5 L g/dL (14.0-18.0) Hct 37.8 L % (42.0-52.0) MCV 81.8 fl (80-100) MCH 24.9 L pg (26-34) MCHC 30.4 L g/dl (32-36) RDW 14.7 H % (11.5-14.5) Plt Count 232 k/mm3 (150-375) MPV 10.5 H fl (7.4-10.4) Immature Gran % (Auto) 0.3 % (0-0.5) Neut % (Auto) 64.7 % (45.5-73.1) Lymph % (Auto) 25.7 % (18.3-44.2) [place] % (Auto) 8.8 H % (2.6-8.5) Eos % (Auto) 0.4 % (0-4.4) Baso % (Auto) 0.1 L % (0.2-1.2) Lymph # (Auto) 1.86 K/mm3 (0.9-3.2) [place] # (Auto) 0.6 K/mm3 (0.1-0.6) Eos # (Auto) 0.0 K/mm3 (0-0.3) Baso # (Auto) 0.0 K/mm3 (0.0-0.1) Abs Immat Gran (auto) 0.02 K/mm3 (0.00-0.031) Absolute Neuts (auto) 4.7 K/mm3 (1.3-6.7) Absolute Nucleated RBC 0.000 K/mm3 (0.0-0.012) Nucleated RBC % 0.0 % (0.0-0.2) Sodium 137 mmol/L (137-145) Potassium 4.0 mmol/L (3.4-5.0) Chloride 102 mmol/L (98-107) Carbon Dioxide 30 mmol/L (22-30) Anion Gap 5 mmol/L (4-12) BUN 20 mg/dL (9-20) Creatinine 1.48 H mg/dL (0.7-1.3) Estim Creat Clear Calc 61 ml/min Estimated GFR 51 L (59 - ) Glucose 314 H mg/dL (65-110) POC Capillary Glucose 256 H mg/dl 161 H mg/dl (65-105) (65-105) Calcium 8.3 L mg/dL (8.4-10.2) Magnesium 2.1 mg/dL (1.6-2.3) Total Bilirubin 0.3 mg/dL (0.2-1.3) AST 21 U/L (17-59) ALT 13 U/L (6-50) Alkaline Phosphatase 96 U/L (38-126) Total Protein 5.8 L g/dL (6.3-8.2) Albumin 3.0 L g/dL (3.5-5.1) Random Vancomycin 15.3 ug/mL (10-20) Blood Type Antibody Screen 10/23/24 11:58 WBC RBC Hgb Hct MCV MCH MCHC RDW Plt Count MPV Immature Gran % (Auto) Neut % (Auto) Lymph % (Auto) [place] % (Auto) Eos % (Auto) Baso % (Auto) Lymph # (Auto) [place] # (Auto) Eos # (Auto) Baso # (Auto) Abs Immat Gran (auto) Absolute Neuts (auto) Absolute Nucleated RBC Nucleated RBC % Sodium Potassium Chloride Carbon Dioxide Anion Gap BUN Creatinine Estim Creat Clear Calc Estimated GFR Glucose POC Capillary Glucose 123 H mg/dl (65-105) Calcium Magnesium Total Bilirubin AST ALT Alkaline Phosphatase Total Protein Albumin Random Vancomycin Blood Type Antibody Screen Patient hx anesthesia problems: none Family hx anesthesia problems: none Results Review: All pre-operative results and documents have been reviewed as part of the pre-operative evaluation. [facility] Past Medical History Medical History Diastolic dysfunction Echocardiogram 07/2021: Grade 1 diastolic dysfunction, no intracardiac shunt with agitated saline, EF 65-70, no valvular abnormalities, mild concentric increased left ventricular wall thickness Chronic anemia Diabetic gastroparesis Diabetic retinopathy History of GI bleed Secondary to esophagitis noted on EGD in November 2017. History of suicide attempt Chronic kidney disease, stage 3 Baseline creatinine appears to be between 1.8-2 Hypertension History of osteomyelitis Right 5th toe, status post amputation. Bipolar disorder GERD (gastroesophageal reflux disease) Surgical History Surgical History Amputation of toe of left foot 12/09/23 Open amputation left 4th toe Dr. Dumont Status post amputation of toe of right foot Right 5th toe amputation including the distal metatarsal in 2017. Open amputation of right 5th metatarsal in July 2019 for osteomyelitis of right 5th metatarsal stump. Family History Family History Other Adopted Social History Social History Social History: The patient lives in [place] with his and their 3 children, 1 biological daughter and 2 step children. 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 He is a previous smoker, both cigars and cigarettes. He does smoke cannabis. He denies alcohol use. Wi fe, Pari, is his surrogate decision maker and he wishes to be a full code. Smoking packs per day: 1 Smoking cigarettes per day: 20.0 Years smoked: 20 Smoking pack-years: 20.00 Smoking status: Former smoker Second hand tobacco smoke exposure: Yes Smoking end date: 10/16/24 Additional smoking assessment comments: Alcohol intake: never Substance use: never Substance use type: does not use Last use: 03/20/23 Do You Feel Safe in your Home?: Yes Lack of Transportation: YES Lack of Food: Never True Current Housing: Decline to Answer Concerned About Future Housing: Decline to Answer Difficulty Paying Gas/Electric Bills: Decline to Answer Difficulty Paying for Meds: Decline to Answer Currently Unemployed: Decline to Answer Education: Associate Degree Difficulty w/ Childcare or Family Care: Decline to Answer Gender identity (if verbalized by the patient): Male Spiritual care concerns: No Agree to blood products: Yes Anes - Eval Final PreProcedure Day of Procedure 10/23/24 13:04 Patient weight: overweight Heart: regular rate and rhythm Lungs: clear to auscultation Airway: Mallampati scale class II and special considerations poor dentition Neurological: alert and oriented Last oral intake: >/= 8 hours ASA classification: IV Emergent: no Anesthetic plan: proceed Anesthesia type and monitoring: general GIVS and standard monitoring Results Review: All pre-operative results and documents have been reviewed as part of the pre- operative evaluation. Informed Consent: The patient's anesthetic plan and its attendant risks and benefits were discussed with the patient/family/POA. Questions were solicited and answers provided to the satisfaction of the patient/family/POA.
--- NOTE | 2024-10-23 14:18 | W.PM.PROC2 ---
Procedure Note - Detailed Date of Procedure 10/23/24 Pre-op Diagnosis Left 5th metatarsal diabetic foot ulcer, right 1st toe interphalangeal diabetic foot ulcer Post-op Diagnosis Same Procedure Performed Excisional debridement skin subcutaneous muscle 4 x 2 x 1 cm left 5th metatarsal. Excisional debridement skin subcutaneous muscle 3 x 1.5 x 1 cm right 1st toe interphalangeal ulcer Surgeon Kai Dumont MD Jute Bag [employer] [facility] Anesthesia General (LMA) Indications Patient has long history of diabetic foot infections and has had amputation of his right 5th toe and his left 4th toe. He has had previous wounds at both the right great toe and the left 5th metatarsal. He came into the hospital with diabetic ketoacidosis and was treated in the intensive care unit. It was noted that he had ulceration and callus at both the left 5th metatarsal and the plantar aspect of the right 1st toe. Imaging suggests he has osteomyelitis of the left 5th metatarsal but not of the right great toe. Patient is taken to surgery at this time for debridement of the left and right foot diabetic foot ulcers. Findings Heavy callus was involved in each of the ulcers. On the 5th metatarsal ulcer on the left foot, there was a smaller ulcer anterior to the larger more lateral ulcer. After debriding the inflammatory tissue on the smaller ulcer, it communicated with the larger ulcer. The left 5th metatarsal was palpable but not exposed after debridement. The right great toe had even more callus than the left foot foot ulcer. This was removed and there was still a strip of hypertrophic inflammatory tissue over the pulp of the great toe distal phalanx. This was debrided as well. The bone was palpable but not exposed on the right great toe. Cultures were taken of the left 5th metatarsal ulcer but no purulent fluid was noted in either ulcer. Neither foot had swelling or redness. Description of Procedure Patient was taken to surgery and anesthesia was introduced. Both feet were prepped and draped. I started on the left 5th metatarsal and excised the surrounding callus sharply. This was discarded. I then debrided the inflammatory, necrotic tissue in the center. I then excised the soft necrotic tissue over the smaller more anterior ulcer. After doing this, a probe was able to be passed from the smaller ulcer to the larger. I then excised the skin between the 2 ulcers so that there was 1 single wound. The tract was exposed and inflammatory soft, nonviable tissue was excised. I debrided to healthy tissue throughout. The 5th metatarsal was palpable but was not exposed. It still had periosteum and ligamentous covering. The cautery was used to achieve hemostasis. The resultant 5th metatarsal wound measured 4 x 2 x 1 cm. I then turned my attention to the right great toe ulcer. This had a very large callus which was excised. There was inflammatory tissue on the plantar aspect of the toe primarily over the distal phalanx and interphalangeal joint. I debrided this tissue as well as it was nonviable. The distal phalanx was palpable in the wound but still covered by ligamentous and periosteal tissue. Cautery was used for hemostasis on this wound as well. The great toe and the left 5th metatarsal wounds were dressed with silver gel. 1/2 inch iodoform Nu Gauze was packed into the left 5th metatarsal wound. Bulky fluffs were placed over both wounds and Kerlix roll was used to wrap and secure the fluffs in place on both the right and the left foot. The left foot also had an ABD covering the 5th metatarsal under the Kerlix roll. Patient was then awakened and transferred to recovery in good condition. Sponge and needle counts were correct x2. Estimated Blood Loss -5 Urine Output 650 Drains No Packing Yes (Left 5th metatarsal, 1/2 inch iodoform Nu Gauze) Pathology Other (Left 5th metatarsal cultures for aerobes, anaerobes, Gram stain) Complications None Condition Stable Disposition PACU [facility] Billing Surgery - Charge Forward: Surgery Billing (Excisional debridement skin subcutaneous muscle 4 x 2 x 1 cm left 5th metatarsal. Excisional debridement skin subcutaneous muscle 3 x 1.5 x 1 cm right 1st toe interphalangeal ulcer)
[2024-10-23 14:33] LABS: Glucose Point of Care 85 mg/dl (65-105)
--- NOTE | 2024-10-23 15:58 | PM.IMPN ---
Progress Note: A&P Assessment and Plan (1) Diabetic foot infection: Code(s): E11.628 - Type 2 diabetes mellitus with other skin complications; L08.9 - Local infection of the skin and subcutaneous tissue, unspecified Status: Acute Assessment and Plan: Patient has history of left foot osteomyelitis with progression of chronic osteomyelitis CT Right foot showing sclerotic changes in the proximal fourth metatarsal bone which may be due to old fracture or osteomyelitis and an ulceration in the area of the interphalangeal joint of the big toe with fat stranding seen in the area. Also with fat stranding in the area of the calcaneus subcutaneous tissues and minimal soft tissue density deep to the plantar fascia. CT Left foot showing progression of likely ongoing chronic osteomyelitis at the base of the fifth proximal phalanx at the head and neck of the fifth metatarsal and chronic erosions at the head of the first proximal phalanx and at the base of the fourth metatarsal with location and appearance most consistent with gout. BCx NGTD WCx growing beta-lactamase positive Prevotella, Group G Strep and MSSA. He was started on Flagyl, Cefepime and Vanco. WBC was 17K but now normal. No fevers. Surgery has been consulted and patient underwent excisional debridement skin subcutaneous muscle 4 x 2 x 1 cm left 5th metatarsal and excisional debridement skin subcutaneous muscle 3 x 1.5 x 1 cm right 1st toe interphalangeal ulcer. Patient appears to have tolerated the procedure well. Continue abx. (2) DKA (diabetic ketoacidosis): Qualifiers: Diabetes mellitus complication detail: without coma Diabetes mellitus type: type 2 Qualified Code(s): E11.10 - Type 2 diabetes mellitus with ketoacidosis without coma Code(s): E11.10 - Type 2 diabetes mellitus with ketoacidosis without coma Status: Acute Assessment and Plan: Patient presented with nausea and vomiting and found to have hyperglycemia. Serum bicarb was 14 and AG 32. Glucose 511. BHOB 10. Patient was out of his medications as he lost his insurance Patient diagnosed with DKA and given IV fluid bolus and started on insulin infusion per DKA protocol He was admitted to ICU. His anion gap closed. Lantus started and insulin drip stopped. Resolved (3) Type 2 diabetes mellitus with hyperglycemia, with long-term current use of insulin: Code(s): E11.65 - Type 2 diabetes mellitus with hyperglycemia; Z79.4 - long term (current) use of insulin Status: Acute Assessment and Plan: A1c >14. The patient's blood glucose was reviewed on 10/23 Glucose remains reasonably well controlled. Continue AccuCheks covering with sliding scale. Hypoglycemia protocol available as needed. Patient takes Lantus 40 units daily and Jardiance at home which have been continued here. certified adaptive physical educator and dietitian consulted (4) Acute kidney injury superimposed on stage 3b chronic kidney disease: Code(s): N17.9 - Acute kidney failure, unspecified; N18.32 - Chronic kidney disease, stage 3b Status: Acute Assessment and Plan: Patient with CKD with baseline around 1.5-2.2. He has CARLOTTA on admisson with Cr 2.5 felt related to above. With IV fluids, Cr has trended down to his baseline levels. Monitor renal fxn, electrolytes and UOP. (5) Hypertension: Code(s): I10 - Essential (primary) hypertension Status: Acute Assessment and Plan: Patient's blood pressure was reviewed on 10/23 Blood pressure remains well controlled. Will continue current medications with metoprolol and lisinopril PRN hydralazine Holding HCTZ (6) N&V (nausea and vomiting): Code(s): R11.2 - Nausea with vomiting, unspecified Status: Acute Assessment and Plan: Related to above. Resolved Plan DVT prophylaxis: lovenox Stress ulcer prophylaxis:Protonix Nutrition:diabetic diet Code Status:full code Subjective Date/time seen: 10/23/24 15:58 Interval history: 49yo male with DM, diabetic foot ulcers, HTN, CKD, neuropathy with amputation of toes, and hx of noncompliant with treatment who presents the hospital with 3 days of nausea vomiting and diarrhea. Assuming care. Chart reviewed. Patient back from surgery. He feels well. No Cp or SOB. Tolerating oral intake. He is now up-to-date with his insurance and has access to his meds. Exam Narrative: AF 98 138/84 75 20 95% ra Gen - NARD Chest - CTA bilaterally, nml RR CV - RRR S1/S2 Abd - soft, NT, ND Ext - no pedal edema; both feet wrapped in gauze with soft shoe in place. old blood noted left distal foot dressing. poor muscle mass Psych - nml mood and affect Skin - warm and dry. Objective Data Vital Signs Vital Signs: Vital Signs - 24 hr 10/22/24 20:00 10/22/24 21:03 10/22/24 22:00 Temperature 98.2 F Pulse Rate 84 84 81 Respiratory Rate 18 18 Blood Pressure 156/93 H Pulse Oximetry 100 100 Oxygen Delivery Room Air Oxygen Flow Rate Fraction of Inspired Oxygen 21 10/23/24 06:00 10/23/24 12:00 10/23/24 14:13 Temperature 97.8 F 97.3 F L 98 F Pulse Rate 80 78 72 Respiratory Rate 18 14 12 Blood Pressure 160/95 H 161/99 H 108/76 Pulse Oximetry 100 100 100 Oxygen Delivery Room Air Simple Face Mask Oxygen Flow Rate 8 Fraction of Inspired Oxygen 10/23/24 14:25 10/23/24 14:40 10/23/24 14:55 Temperature Pulse Rate 82 77 78 Respiratory Rate 17 17 19 Blood Pressure 111/73 118/78 147/96 H Pulse Oximetry 100 100 100 Oxygen Delivery Simple Face Mask Simple Face Mask Simple Face Mask Oxygen Flow Rate 8 8 8 Fraction of Inspired Oxygen 10/23/24 15:00 10/23/24 15:10 10/23/24 15:25 Temperature Pulse Rate 82 77 Respiratory Rate 20 18 Blood Pressure 146/97 H 147/87 H Pulse Oximetry 97 96 Oxygen Delivery Room Air Room Air Room Air Oxygen Flow Rate Fraction of Inspired Oxygen 10/23/24 15:40 10/23/24 15:55 Temperature Pulse Rate 76 75 Respiratory Rate 14 20 Blood Pressure 147/87 H 138/84 Pulse Oximetry 97 95 Oxygen Delivery Room Air Room Air Oxygen Flow Rate Fraction of Inspired Oxygen Intake/Output Intake/Output: Intake & Output 10/20/24 10/21/24 10/22/24 10/23/24 23:59 23:59 23:59 23:59 Intake Total 3090.2 3270 4224 940 Output Total 1850 650 Balance 1240.2 3270 4224 290 Meds/Results Medications: Active Medications Generic Name Dose Route Start Last Admin Trade Name Freq PRN Reason Stop Dose Admin Buspirone HCl 10 mg 10/21/24 09:00 10/22/24 21:02 Buspirone Hcl 5 Mg Tablet PO 10 mg Q12HR KEEGAN Administration Dextrose 12.5 gm 10/20/24 09:58 Dextrose 50% 25 Gm/50 Ml Syringe IV PUSH PRN PRN Hypoglycemia Protocol Empagliflozin 25 mg 10/20/24 09:00 10/22/24 09:02 Empagliflozin 25 Mg Tablet PO 25 mg DAILY KEEGAN Administration Fentanyl Citrate 25 mcg 10/23/24 14:15 Fentanyl Citrate Inj (*Crx) 100 Mcg/2 Ml Vial IV PUSH Q2M PRN Pain Glucagon 1 mg 10/20/24 09:58 Glucagon For Inj 1 Mg Vial IM PRN PRN Hypoglycemia Protocol Glucose 15 gm 10/20/24 09:58 Glucose Oral Gel 15 Gm Of Glucse In 37.5 Gm Tube PO PRN PRN Hypoglycemia Protocol Hydralazine HCl 10 mg 10/20/24 07:43 10/21/24 05:20 Hydralazine Hcl 20 Mg/Ml Vial IV PUSH 10 mg Q4H PRN Administration Blood Pressure - High Hydrochlorothiazide 12.5 mg 10/20/24 09:00 Hydrochlorothiazide 12.5 Mg Capsule PO QAM KEEGAN Metronidazole 500 mg in 100 mls @ 100 mls/hr 10/19/24 22:00 10/23/24 06:15 Flagyl 500 Mg/Iso Soln 100 Ml IVPB Infused Q8H KEEGAN Infusion Dextrose 1,000 mls @ 100 mls/hr 10/20/24 09:58 Dextrose 5% 1,000 Ml IVPB PRN PRN Hypoglycemia Protocol Cefepime HCl 2 gm in 50 mls @ 100 mls/hr 10/22/24 17:00 10/23/24 05:10 Maxipime 2 Gm/Ns 50 Ml IVPB Infused Q12H KEEGAN Infusion Vancomycin HCl 1,500 mg in 500 mls @ 250 mls/hr 10/23/24 06:00 10/23/24 06:23 Vancomycin 1,500 Mg/Ns 500 Ml IVPB 250 mls/hr Q24H KEEGAN Administration Lactated Ringer's 1,000 mls @ 30 mls/hr 10/23/24 14:15 10/23/24 15:43 Lr - Lactated Ringers Iv IV CONT Infused .Q24H KEEGAN Infusion Insulin Aspart 2 - 4 units 10/20/24 21:00 10/22/24 21:02 Insulin Aspart (*Bkc) 100 Units/Ml SUB-Q Not Given HS KEEGAN Protocol Insulin Aspart 4 - 8 units 10/20/24 12:00 10/23/24 12:02 Insulin Aspart (*Bkc) 100 Units/Ml SUB-Q Not Given TIDWM [facility] Protocol Insulin Glargine 40 units 10/20/24 10:00 10/22/24 09:03 Insulin Glargine (*Bkc) 100 Units/Ml SUB-Q 40 units DAILY KEEGAN Administration Lisinopril 20 mg 10/20/24 09:00 10/22/24 09:02 Lisinopril 20 Mg Tablet PO 20 mg QAM KEEGAN Administration Metoclopramide HCl 10 mg 10/20/24 07:42 10/20/24 22:59 Metoclopramide Hcl Inj 10 Mg/2 Ml Vial IV PUSH 10 mg Q6HR PRN Administration nausea/vomiting Metoprolol Tartrate 50 mg 10/19/24 22:40 10/23/24 09:55 Metoprolol Tartrate 50 Mg Tab PO 50 mg Q12HR KEEGAN Administration Ondansetron HCl 4 mg 10/23/24 14:15 Ondansetron Inj 4 Mg/2 Ml Vial IV PUSH ONCE PRN Nausea Pantoprazole Sodium 40 mg 10/20/24 09:00 10/22/24 09:03 Pantoprazole Sodium Iv 40 Mg Vial IV PUSH 40 mg QAM KEEGAN Administration Prochlorperazine Edisylate 10 mg 10/19/24 17:54 10/20/24 20:35 Prochlorperazine Edisylate 10 Mg/2 Ml Vial IV PUSH 10 mg Q6H PRN Administration Nausea And Vomiting Prochlorperazine Edisylate 10 mg 10/20/24 07:42 Prochlorperazine Edisylate 10 Mg/2 Ml Vial IV PUSH Q6H PRN Nausea And Vomiting Sertraline HCl 100 mg 10/19/24 22:40 10/22/24 21:02 Sertraline Hcl 50 Mg Tablet PO 100 mg HS KEEGAN Administration Simvastatin 20 mg 10/19/24 22:45 10/22/24 21:02 Simvastatin 20 Mg Tablet PO 20 mg HS KEEGAN Administration Sodium Chloride 10 ml 10/22/24 22:00 10/23/24 05:18 Central Line Flush IV PUSH 10 ml Q8HR KEEGAN Administration Sodium Chloride 10 ml 10/22/24 14:15 Central Line Flush IV PUSH PRN PRN with TPN bag changes Sodium Chloride 20 ml 10/22/24 14:15 10/23/24 05:18 Central Line Flush IV PUSH 20 ml PRN PRN Administration after blood draws Radiology Results: ITS Impressions Foot CT 10/19/24 15:24 IMPRESSION: 1. . Progression of likely ongoing chronic osteomyelitis at the base of the fifth proximal phalanx at the head and neck of the fifth metatarsal. 2. Chronic erosions at the head of the first proximal phalanx and at the base of the fourth metatarsal with location and appearance most consistent with gout. Labs Labs: Laboratory Results - last 24 hr 10/22/24 10/22/24 10/22/24 16:04 18:22 20:42 WBC RBC Hgb Hct MCV MCH MCHC RDW Plt Count MPV Immature Gran % (Auto) Neut % (Auto) Lymph % (Auto) Lipscomb % (Auto) Eos % (Auto) Baso % (Auto) Lymph # (Auto) Lipscomb # (Auto) Eos # (Auto) Baso # (Auto) Abs Immat Gran (auto) Absolute Neuts (auto) Absolute Nucleated RBC Nucleated RBC % Sodium Potassium Chloride Carbon Dioxide Anion Gap BUN Creatinine Estim Creat Clear Calc Estimated GFR Glucose POC Capillary Glucose 275 H 102 Calcium Magnesium Total Bilirubin AST ALT Alkaline Phosphatase Total Protein Albumin Random Vancomycin Blood Type B Positive Antibody Screen Negative 10/23/24 10/23/24 10/23/24 04:38 07:39 11:19 WBC 7.3 RBC 4.62 Hgb 11.5 L Hct 37.8 L MCV 81.8 MCH 24.9 L MCHC 30.4 L RDW 14.7 H Plt Count 232 MPV 10.5 H Immature Gran % (Auto) 0.3 Neut % (Auto) 64.7 Lymph % (Auto) 25.7 Lipscomb % (Auto) 8.8 H Eos % (Auto) 0.4 Baso % (Auto) 0.1 L Lymph # (Auto) 1.86 Lipscomb # (Auto) 0.6 Eos # (Auto) 0.0 Baso # (Auto) 0.0 Abs Immat Gran (auto) 0.02 Absolute Neuts (auto) 4.7 Absolute Nucleated RBC 0.000 Nucleated RBC % 0.0 Sodium 137 Potassium 4.0 Chloride 102 Carbon Dioxide 30 Anion Gap 5 BUN 20 Creatinine 1.48 H Estim Creat Clear Calc 61 Estimated GFR 51 L Glucose 314 H POC Capillary Glucose 256 H 161 H Calcium 8.3 L Magnesium 2.1 Total Bilirubin 0.3 AST 21 ALT 13 Alkaline Phosphatase 96 Total Protein 5.8 L Albumin 3.0 L Random Vancomycin 15.3 Blood Type Antibody Screen 10/23/24 10/23/24 11:58 14:31 WBC RBC Hgb Hct MCV MCH MCHC RDW Plt Count MPV Immature Gran % (Auto) Neut % (Auto) Lymph % (Auto) Lipscomb % (Auto) Eos % (Auto) Baso % (Auto) Lymph # (Auto) Lipscomb # (Auto) Eos # (Auto) Baso # (Auto) Abs Immat Gran (auto) Absolute Neuts (auto) Absolute Nucleated RBC Nucleated RBC % Sodium Potassium Chloride Carbon Dioxide Anion Gap BUN Creatinine Estim Creat Clear Calc Estimated GFR Glucose POC Capillary Glucose 123 H 85 Calcium Magnesium Total Bilirubin AST ALT Alkaline Phosphatase Total Protein Albumin Random Vancomycin Blood Type Antibody Screen
[2024-10-23 16:30] LABS: Glucose Point of Care 88 mg/dl (65-105)
[2024-10-23] MEDS: SERTRALINE HCL 50 MG TABLET 100 MG PO (20:49)
[2024-10-23] MEDS: busPIRone HCL 5 MG TABLET 10 MG PO (20:49)
[2024-10-23] MEDS: SIMVASTATIN 20 MG TABLET PO (20:50)
[2024-10-23] MEDS: INSULIN ASPART (*BKC) 100 UNITS/ML SUB-Q (20:50)
[2024-10-23 21:52] LABS: Glucose Point of Care 303 mg/dl (65-105)
[2024-10-24 00:42] VITALS: BP 139/88; PULSE 96; RESP 18; TEMP 36.1; O2SAT 97
[2024-10-24] MEDS: CEFEPIME 2 GM/NS 50 ML 2 GM/50 ML BAG IVPB (04:34)
[2024-10-24 04:50] LABS: Albumin Level 3.3 g/dL (3.5-5.1); Anion Gap 6 mmol/L (4-12); Blood Urea Nitrogen 27 mg/dL (9-20); Calcium 8.6 mg/dL (8.4-10.2); Carbon Dioxide 28 mmol/L (22-30); Chloride 100 mmol/L (98-107); Estimated CRCL calculation 58 ml/min; Estimated Glomerular Filt Rate 48; Glucose 322 mg/dL (65-110); Phosphorus 4.2 mg/dL (2.5-4.5); Sodium 134 mmol/L (137-145)
[2024-10-24 04:54] LABS: Vancomycin Trough 13.2 ug/mL (10.0-20.0)
[2024-10-24] MEDS: metroNIDAZOLE 500 MG/ISO 100ML 500 MG/100 ML BAG 100 MG IVPB (05:06)
[2024-10-24] MEDS: CENTRAL LINE FLUSH 10 ML IV PUSH ×2 (05:12→13:13)
[2024-10-24 05:51] LABS: Glucose Point of Care 307 mg/dl (65-105)
[2024-10-24 06:02] VITALS: BP 156/96; PULSE 88; RESP 18; TEMP 36.1; O2SAT 100
[2024-10-24] MEDS: VANCOMYCIN 1,750 MG/NS 500 ML 1,750 MG/500 ML BAG 250 MG IVPB (06:02)
[2024-10-24 07:53] LABS: Glucose Point of Care 263 mg/dl (65-105)
[2024-10-24 08:33] VITALS: PULSE 104
[2024-10-24] MEDS: hydroCHLOROthiazide 12.5 MG CAPSULE PO (08:33)
[2024-10-24] MEDS: busPIRone HCL 5 MG TABLET 10 MG PO (08:33)
[2024-10-24] MEDS: METOPROLOL TARTRATE 50 MG TAB PO (08:33)
[2024-10-24] MEDS: lisinopriL 20 MG TABLET PO (08:34)
[2024-10-24] MEDS: EMPAGLIFLOZIN 25 MG TABLET PO (08:34)
[2024-10-24] MEDS: PANTOPRAZOLE 40 MG TABLET PO (08:34)
[2024-10-24] MEDS: ENOXAPARIN 40 MG/0.4 ML SYRINGE SUB-Q (08:35)
[2024-10-24] MEDS: INSULIN ASPART (*BKC) 100 UNITS/ML SUB-Q ×2 (08:35→11:53)
[2024-10-24] MEDS: INSULIN GLARGINE (*BKC) 100 UNITS/ML 40 UNITS SUB-Q (08:36)
[2024-10-24 11:43] LABS: Glucose Point of Care 364 mg/dl (65-105)
[2024-10-24] MEDS: CENTRAL LINE FLUSH 20 ML IV PUSH (11:43)
[2024-10-24 11:56] LABS: Hematocrit 38.3 % (42.0-52.0); Hemoglobin 11.7 g/dL (14.0-18.0); Mean Corpuscular HGB Conc 30.5 g/dl (32-36); Mean Corpuscular Volume 81.8 fl (80-100); Mean Platelet Volume 10.5 fl (7.4-10.4); Platelet Count Result 223 k/mm3 (150-375); Red Blood Count 4.68 M/mm3 (4.6-6.20); Red Cell Distribution Width 14.6 % (11.5-14.5); White Blood Count 9.9 K/mm3 (4.5-10.0)
[2024-10-24] MEDS: AMOXICILLIN/CLAVULANATE K 875-125 MG TAB 1 TABLET PO (11:57)
[2024-10-24] MEDS: DOXYCYCLINE HYCLATE 100 MG TABLET PO (11:57)
[2024-10-24 12:00] VITALS: BP 125/84; PULSE 88; RESP 14; TEMP 36.8; O2SAT 100
--- NOTE | 2024-10-24 12:49 | P.PNGS_ITS ---
Progress Note: A&P Assessment and Plan (1) Ulcer of left fifth toe due to diabetes mellitus: Code(s): E11.621 - Type 2 diabetes mellitus with foot ulcer; L97.529 - Non-pressure chronic ulcer of other part of left foot with unspecified severity Status: Chronic Assessment and Plan: * Wound healing well. Okay to d/c from a surgical standpoint. Continue silver gel dressing changes daily. His plans to help with dressing changes. Continue to wear postop shoe with ambulation. F/u with Dr. Dumont in 2 weeks. Continue Bactrim on discharge for another 2 weeks. (2) Ulcer of right great toe due to diabetes mellitus: Code(s): E11.621 - Type 2 diabetes mellitus with foot ulcer; L97.519 - Non-pressure chronic ulcer of other part of right foot with unspecified severity Status: Acute Assessment and Plan: * Wound healing well. Okay to d/c from a surgical standpoint. Continue silver gel dressing changes daily. His plans to help with dressing changes. Continue to wear postop shoe with ambulation. F/u with Dr. Dumont in 2 weeks. Continue Bactrim on discharge for another 2 weeks. (3) Noncompliance: Code(s): Z91.19 - Patient's noncompliance with other medical treatment and regimen Status: Chronic Assessment and Plan: * Discussed importance of compliance with his wound care instructions and diabetes management (4) Uncontrolled diabetes mellitus: Qualifiers: Diabetes mellitus type: type 2 Glycemic state: with hyperglycemia Qualified Code(s): E11.65 - Type 2 diabetes mellitus with hyperglycemia Status: Chronic (5) Diabetic foot infection: Code(s): E11.628 - Type 2 diabetes mellitus with other skin complications; L08.9 - Local infection of the skin and subcutaneous tissue, unspecified Status: Acute Assessment and Plan: * Continue another 2 weeks of Bactrim on discharge (6) History of amputation of lesser toe of left foot: Code(s): Z89.422 - Acquired absence of other left toe(s) Status: Chronic (7) History of amputation of right fifth toe: Code(s): Z89.421 - Acquired absence of other right toe(s) Status: Chronic Plan I have discussed the patient's case and plan of care with Dr. Dumont. Subjective Subjective Date/Time Seen: 10/24/24 12:49 Patient reports: no new complaints and afebrile Interval history: No acute issues overnight. Nursing did have to reinforce his dressing on the right foot due to bloody drainage. He denies any pain. Exam Const: General: comfortable and no acute distress Extrem: Other: Bilateral dressings removed. Right great toe ulcer on the plantar foot with a pale pink wound bed, no necrotic tissue, no purulent drainage, no bleeding. Left lateral foot ulcer with a pink wound bed, no necrotic tissue, no purulent drainage. No erythema or swelling of bilateral feet. Objective Data Vital Signs Vital Signs: Vital Signs - 24 hr 10/23/24 14:13 10/23/24 14:25 10/23/24 14:40 Temperature 98 F Pulse Rate 72 82 77 Respiratory Rate 12 17 17 Blood Pressure 108/76 111/73 118/78 Pulse Oximetry 100 100 100 Oxygen Delivery Simple Face Mask Simple Face Mask Simple Face Mask Oxygen Flow Rate 8 8 8 10/23/24 14:55 10/23/24 15:00 10/23/24 15:10 Temperature Pulse Rate 78 82 Respiratory Rate 19 20 Blood Pressure 147/96 H 146/97 H Pulse Oximetry 100 97 Oxygen Delivery Simple Face Mask Room Air Room Air Oxygen Flow Rate 8 10/23/24 15:25 10/23/24 15:40 10/23/24 15:55 Temperature Pulse Rate 77 76 75 Respiratory Rate 18 14 20 Blood Pressure 147/87 H 147/87 H 138/84 Pulse Oximetry 96 97 95 Oxygen Delivery Room Air Room Air Room Air Oxygen Flow Rate 10/23/24 16:17 10/23/24 16:32 10/23/24 17:02 Temperature 96.8 F L 97 F L 97 F L Pulse Rate 80 83 79 Respiratory Rate 20 20 20 Blood Pressure 153/85 H 127/83 142/89 H Pulse Oximetry 96 97 98 Oxygen Delivery Oxygen Flow Rate 10/23/24 17:48 10/23/24 20:59 10/23/24 21:58 Temperature 97.8 F 96.8 F L Pulse Rate 87 101 H 100 Respiratory Rate 20 18 Blood Pressure 162/95 H 146/89 H Pulse Oximetry 98 96 Oxygen Delivery Oxygen Flow Rate 10/24/24 00:42 10/24/24 06:02 10/24/24 08:33 Temperature 97 F L 97 F L Pulse Rate 96 88 104 H Respiratory Rate 18 18 Blood Pressure 139/88 156/96 H Pulse Oximetry 97 100 Oxygen Delivery Oxygen Flow Rate 10/24/24 12:00 Temperature 98.2 F Pulse Rate 88 Respiratory Rate 14 Blood Pressure 125/84 Pulse Oximetry 100 Oxygen Delivery Oxygen Flow Rate Intake/Output Intake/Output: Intake & Output 10/21/24 10/22/24 10/23/24 10/24/24 23:59 23:59 23:59 23:59 Intake Total 3270 4224 2990 2410 Output Total 650 Balance 3270 4224 2340 2410 Meds/Results Medications: Active Medications Generic Name Dose Route Start Last Admin Trade Name Freq PRN Reason Stop Dose Admin Acetaminophen 500 mg 10/23/24 16:17 Acetaminophen 500 Mg Tablet PO Q6H PRN Pain Rated 1-3 Amoxicillin/Clavulanate Potassium 1 tablet 10/24/24 12:00 10/24/24 11:57 Amoxicillin/Clavulanate K 875-125 Mg Tab PO 1 tablet Q12HR KEEGAN Administration Buspirone HCl 10 mg 10/21/24 09:00 10/24/24 08:33 Buspirone Hcl 5 Mg Tablet PO 10 mg Q12HR KEEGAN Administration Dextrose 12.5 gm 10/20/24 09:58 Dextrose 50% 25 Gm/50 Ml Syringe IV PUSH PRN PRN Hypoglycemia Protocol Doxycycline Hyclate 100 mg 10/24/24 12:00 10/24/24 11:57 Doxycycline Hyclate 100 Mg Tablet PO 100 mg Q12HR KEEGAN Administration Empagliflozin 25 mg 10/20/24 09:00 10/24/24 08:34 Empagliflozin 25 Mg Tablet PO 25 mg DAILY KEEGAN Administration Enoxaparin Sodium 40 mg 10/24/24 09:00 10/24/24 08:35 Enoxaparin 40 Mg/0.4 Ml Syringe SUB-Q 40 mg DAILY KEEGAN Administration Fentanyl Citrate 25 mcg 10/23/24 16:17 Fentanyl Citrate Inj (*Crx) 100 Mcg/2 Ml Vial IV PUSH Q2H PRN Breakthrough Pain Rated 7-10 or NPO Glucagon 1 mg 10/20/24 09:58 Glucagon For Inj 1 Mg Vial IM PRN PRN Hypoglycemia Protocol Glucose 15 gm 10/20/24 09:58 Glucose Oral Gel 15 Gm Of Glucse In 37.5 Gm Tube PO PRN PRN Hypoglycemia Protocol Hydralazine HCl 10 mg 10/20/24 07:43 10/21/24 05:20 Hydralazine Hcl 20 Mg/Ml Vial IV PUSH 10 mg Q4H PRN Administration Blood Pressure - High Hydrochlorothiazide 12.5 mg 10/20/24 09:00 10/24/24 08:33 Hydrochlorothiazide 12.5 Mg Capsule PO 12.5 mg QAM KEEGAN Administration Dextrose 1,000 mls @ 100 mls/hr 10/20/24 09:58 Dextrose 5% 1,000 Ml IVPB PRN PRN Hypoglycemia Protocol Insulin Aspart 2 - 4 units 10/20/24 21:00 10/23/24 20:50 Insulin Aspart (*Bkc) 100 Units/Ml SUB-Q 3 units HS KEEGAN Administration Protocol Insulin Aspart 4 - 8 units 10/20/24 12:00 10/24/24 11:53 Insulin Aspart (*Bkc) 100 Units/Ml SUB-Q 8 units TIDWM KEEGAN Administration Protocol Insulin Glargine 40 units 10/20/24 10:00 10/24/24 08:36 Insulin Glargine (*Bkc) 100 Units/Ml SUB-Q 40 units DAILY KEEGAN Administration Lisinopril 20 mg 10/20/24 09:00 10/24/24 08:34 Lisinopril 20 Mg Tablet PO 20 mg QAM KEEGAN Administration Metoprolol Tartrate 50 mg 10/19/24 22:40 10/24/24 08:33 Metoprolol Tartrate 50 Mg Tab PO 50 mg Q12HR KEEGAN Administration Naloxone HCl 0.1 mg 10/23/24 16:17 Naloxone Hcl 0.4 Mg/Ml Vial IV PUSH Q2M PRN Opiate Reversal Oxycodone/Acetaminophen 0.5 tablet 10/23/24 16:17 Oxycodone/Acetaminophen (*Crx) 5-325 Mg Tablet PO Q4H PRN Pain Rated 4-6 Pantoprazole Sodium 40 mg 10/24/24 09:00 10/24/24 08:34 Pantoprazole 40 Mg Tablet PO 40 mg QAM KEEGAN Administration Prochlorperazine Edisylate 10 mg 10/19/24 17:54 10/20/24 20:35 Prochlorperazine Edisylate 10 Mg/2 Ml Vial IV PUSH 10 mg Q6H PRN Administration Nausea And Vomiting Sertraline HCl 100 mg 10/19/24 22:40 10/23/24 20:49 Sertraline Hcl 50 Mg Tablet PO 100 mg HS KEGEAN Administration Simvastatin 20 mg 10/19/24 22:45 10/23/24 20:50 Simvastatin 20 Mg Tablet PO 20 mg HS KEEGAN Administration Sodium Chloride 10 ml 10/22/24 22:00 10/24/24 05:12 Central Line Flush IV PUSH 10 ml Q8HR KEEGAN Administration Sodium Chloride 10 ml 10/22/24 14:15 Central Line Flush IV PUSH PRN PRN with TPN bag changes Sodium Chloride 20 ml 10/22/24 14:15 10/24/24 11:43 Central Line Flush IV PUSH 20 ml PRN PRN Administration after blood draws Radiology Results: ITS Impressions Foot CT 10/19/24 15:24 IMPRESSION: 1. . Progression of likely ongoing chronic osteomyelitis at the base of the fifth proximal phalanx at the head and neck of the fifth metatarsal. 2. Chronic erosions at the head of the first proximal phalanx and at the base of the fourth metatarsal with location and appearance most consistent with gout. Labs Labs: Laboratory Results - last 24 hr 10/23/24 10/23/24 10/23/24 14:31 16:19 20:46 WBC RBC Hgb Hct MCV MCH MCHC RDW Plt Count MPV Sodium Potassium Chloride Carbon Dioxide Anion Gap BUN Creatinine Estim Creat Clear Calc Estimated GFR Glucose POC Capillary Glucose 85 88 303 H Calcium Phosphorus Albumin Vancomycin Trough 10/24/24 10/24/24 10/24/24 04:29 04:43 07:43 WBC RBC Hgb Hct MCV MCH MCHC RDW Plt Count MPV Sodium 134 L Potassium 4.0 Chloride 100 Carbon Dioxide 28 Anion Gap 6 BUN 27 H Creatinine 1.56 H Estim Creat Clear Calc 58 Estimated GFR 48 L Glucose 322 H POC Capillary Glucose 307 H 263 H Calcium 8.6 Phosphorus 4.2 Albumin 3.3 L Vancomycin Trough 13.2 10/24/24 10/24/24 11:24 11:45 WBC 9.9 RBC 4.68 Hgb 11.7 L Hct 38.3 L MCV 81.8 MCH 25.0 L MCHC 30.5 L RDW 14.6 H Plt Count 223 MPV 10.5 H Sodium Potassium Chloride Carbon Dioxide Anion Gap BUN Creatinine Estim Creat Clear Calc Estimated GFR Glucose POC Capillary Glucose 364 H Calcium Phosphorus Albumin Vancomycin Trough
--- NOTE | 2024-10-24 14:33 | WPDANESPN ---
Anes - Prog Note Post-Op Date/Time: 10/24/24 14:33 Cardiovascular status: normal Respiratory status: normal Airway patency: baseline Mental status: baseline Post-Op hydration status: normal Vital Signs: Last Vital Signs Temp 98.2 F 10/24/24 12:00 Pulse 88 10/24/24 12:00 Resp 14 10/24/24 12:00 BP 125/84 10/24/24 12:00 Pulse Ox 100 10/24/24 12:00 O2 Del Method Room Air 10/24/24 08:00 O2 Flow Rate 8 10/23/24 14:55 FiO2 21 10/22/24 20:00 Pain Score (VAS): 0/10 I/O: Intake & Output 10/23/24 10/24/24 10/24/24 23:59 07:59 15:59 Intake Total 2049 1810 836 Balance 2049 1810 836 Laboratory Tests 10/24/24 11:45 10/24/24 04:29 10/23/24 10/23/24 10/23/24 14:31 16:19 20:46 WBC RBC Hgb Hct MCV MCH MCHC RDW Plt Count MPV Sodium Potassium Chloride Carbon Dioxide Anion Gap BUN Creatinine Estim Creat Clear Calc Estimated GFR Glucose POC Capillary Glucose 85 88 303 H Calcium Phosphorus Albumin Vancomycin Trough 10/24/24 10/24/24 10/24/24 04:29 04:43 07:43 WBC RBC Hgb Hct MCV MCH MCHC RDW Plt Count MPV Sodium 134 L Potassium 4.0 Chloride 100 Carbon Dioxide 28 Anion Gap 6 BUN 27 H Creatinine 1.56 H Estim Creat Clear Calc 58 Estimated GFR 48 L Glucose 322 H POC Capillary Glucose 307 H 263 H Calcium 8.6 Phosphorus 4.2 Albumin 3.3 L Vancomycin Trough 13.2 10/24/24 10/24/24 11:24 11:45 WBC 9.9 RBC 4.68 Hgb 11.7 L Hct 38.3 L MCV 81.8 MCH 25.0 L MCHC 30.5 L RDW 14.6 H Plt Count 223 MPV 10.5 H Sodium Potassium Chloride Carbon Dioxide Anion Gap BUN Creatinine Estim Creat Clear Calc Estimated GFR Glucose POC Capillary Glucose 364 H Calcium Phosphorus Albumin Vancomycin Trough Microbiology 10/23/24 13:48 Foot Left Anaerobic Culture - Preliminary Post-procedural complaints: none Patient Feedback: Patient satisfied with anesthetic care.
[2024-10-24 16:02] VITALS: BP 134/84; PULSE 95; RESP 18; TEMP 37.1; O2SAT 100
[2024-10-24 16:19] LABS: Glucose Point of Care 90 mg/dl (65-105)
--- NOTE | 2024-10-24 16:30 | P.DS_ITS ---
DS: Admitting Diagnosis Discharge Date 10/24/2024 Admitting Diagnosis DKA/ diabetic foot infection DS: Discharge Diagnosis Discharge Diagnosis (1) Diabetic foot infection: Code(s): E11.628 - Type 2 diabetes mellitus with other skin complications; L08.9 - Local infection of the skin and subcutaneous tissue, unspecified Status: Acute (2) DKA (diabetic ketoacidosis): Qualifiers: Diabetes mellitus complication detail: without coma Diabetes mellitus type: type 2 Qualified Code(s): E11.10 - Type 2 diabetes mellitus with ketoacidosis without coma Code(s): E11.10 - Type 2 diabetes mellitus with ketoacidosis without coma Status: Acute (3) Type 2 diabetes mellitus with hyperglycemia, with long-term current use of i nsulin: Code(s): E11.65 - Type 2 diabetes mellitus with hyperglycemia; Z79.4 - detention (current) use of insulin Status: Acute (4) Acute kidney injury superimposed on stage 3b chronic kidney disease: Code(s): N17.9 - Acute kidney failure, unspecified; N18.32 - Chronic kidney disease, stage 3b Status: Acute (5) Hypertension: Code(s): I10 - Essential (primary) hypertension Status: Acute (6) N&V (nausea and vomiting): Code(s): R11.2 - Nausea with vomiting, unspecified Status: Acute DS: Summary Hospital Course Reason for hospitalization: DKA/ diabetic foot infection Hospital Course: Admission: 49-year-old male with diabetes type 2, diabetic ulcers, hypertension, CKD, neuropathy with amputation of toes, noncompliant with medications presents the hospital with 3 days of nausea vomiting and diarrhea. HPI is limited as patient is noninteractive only a 6 yes or no to questions. Patient has been vomiting for the last 3 days unable to take his medications. Still taking his Lantus. Patient does not check his blood sugar at home. In the ED is leukocytosis of 14.4, carbon dioxide 14, anion gap of 32, BUN of 38, creatinine of 2.34 baseline being around 1.7, glucose of 479, hemoglobin A1c over 14, lactic acid 3.2 followed by 2.1, phosphorus is 4.9, beta hydrox ybutyrate 10.10 UA positive for 4+ ketones 3+ glucose, negative for infection. Left foot CT Progression of likely ongoing chronic osteomyelitis at the base of the fifth proximal phalanx at the head and neck of the fifth metatarsal. And Chronic erosions at the head of the first proximal phalanx and at the base of the fourth metatarsal with location and appearance most consistent with gout. Right foot CT Ulceration seen in the area of the interphalangeal joint of the big toe with fat stranding seen in the area. Fat stranding also seen in the area of the calcaneus subcutaneous tissues. Minimal soft tissue density is seen deep to the plantar fascia. This may be infectious.. EKG shows sinus rhythm with incomplete bundle branch block rate of 62, QTC of 440. Patient being admitted to the ICU with DKA and diabetic foot wound infection. Hospital Course: Patient was then admitted to the further treatment diabetic ketoacidosis diabetic foot infection. Patient presented with nausea and vomiting and, found to have hyperglycemia. serum bicarb was 14 and AG 32. Glucose 511. BHOB 10. Patient was out of his medications as he lost his insurance started on IV fluid bolus and started on insulin infusion per DKA protocol once his anion gap closed, Lantus was started and insulin drip stopped, he was then transferred to the medical unit for continued treatment of his diabetic foot infection. Patient has history of left foot osteomyelitis with progression of chronic osteomyelitis CT Right foot showing sclerotic changes in the proximal fourth metatarsal bone which may be due to old fracture or osteomyelitis and an ulceration in the area of the interphalangeal joint of the big toe with fat stranding seen in the area. Also with fat stranding in the area of the calcaneus subcutaneous tissues and minimal soft tissue density deep to the plantar fascia. CT Left foot showing progression of likely ongoing chronic osteomyelitis at the base of the fifth proximal phalanx at the head and neck of the fifth metatarsal and chronic erosions at the head of the first proximal phalanx and at the base of the fourth metatarsal with location and appearance most consistent with gout. BCx NGTD during stay and WCx growing beta-lactamase positive Prevotella, Group G Strep and MSSA. He was started on Flagyl, Cefepime and Vanco. No fevers and WBC trended. Surgery has been consulted and patient underwent excisional debridement skin subcutaneous muscle 4 x 2 x 1 cm left 5th metatarsal and excisional debridement skin subcutaneous muscle 3 x 1.5 x 1 cm right 1st toe interphalangeal ulcer. Patient tolerated the procedure well and his ABX was de-escalated to oral doxycycline and Augmentin per sensitivities. Patient was seen and assessed day of discharge patient with no complaints requesting to return home reported has an amputation and knows how to do his dressing changes and to wear his postop boot. patient shortness that he was current his insurance and would be able to potato picker his insulin educated on proper blood sugar control for wound healing. patient was discharged home with plan to follow-up with general surgery. Time Spent with Patient Time attestation: Total time spent providing and/or coordinating discharge services: Exam Narrative: AF 98 138/84 75 20 95% ra Gen - NARD Chest - CTA bilaterally, nml RR CV - RRR S1/S2 Abd - soft, NT, ND Ext - no pedal edema; both feet wrapped in gauze with soft shoe in place. old blood noted left distal foot dressing. poor muscle mass Psych - nml mood and affect Skin - warm and dry. DS: Data Data Completed and Pending Labs on day of discharge: Labs from last 24 hours 10/24/24 10/24/24 10/24/24 16:03 11:45 11:24 WBC 9.9 RBC 4.68 Hgb 11.7 L Hct 38.3 L MCV 81.8 MCH 25.0 L MCHC 30.5 L RDW 14.6 H Plt Count 223 MPV 10.5 H Sodium Potassium Chloride Carbon Dioxide Anion Gap BUN Creatinine Estim Creat Clear Calc Estimated GFR Glucose POC Capillary Glucose 90 364 H Calcium Phosphorus Albumin Vancomycin Trough 10/24/24 10/24/24 10/24/24 07:43 04:43 04:29 WBC RBC Hgb Hct MCV MCH MCHC RDW Plt Count MPV Sodium 134 L Potassium 4.0 Chloride 100 Carbon Dioxide 28 Anion Gap 6 BUN 27 H Creatinine 1.56 H Estim Creat Clear Calc 58 Estimated GFR 48 L Glucose 322 H POC Capillary Glucose 263 H 307 H Calcium 8.6 Phosphorus 4.2 Albumin 3.3 L Vancomycin Trough 13.2 10/23/24 10/23/24 20:46 16:19 WBC RBC Hgb Hct MCV MCH MCHC RDW Plt Count MPV Sodium Potassium Chloride Carbon Dioxide Anion Gap BUN Creatinine Estim Creat Clear Calc Estimated GFR Glucose POC Capillary Glucose 303 H 88 Calcium Phosphorus Albumin Vancomycin Trough Preliminary micro results at discharge 10/23/24 13:48 Anaerobic Culture - Preliminary Foot Left 10/19/24 15:40 Anaerobic Culture - Preliminary Foot Right Prevotella species 10/19/24 15:41 Anaerobic Culture - Preliminary Foot Left Prevotella species 10/19/24 15:26 Blood Culture - Preliminary Blood 10/19/24 15:36 Blood Culture - Preliminary Blood Imaging Radiologist's impression: EXAMINATION: CT foot LT wo con DATE: 10/19/2024 15:15 INDICATION: Hepatic lesions TECHNIQUE: High resolution computed tomography (CT) of the foot was performed without intravenous contrast. Additional sagittal and coronal reconstructions were performed. Automated exposure control and iterative reconstruction technique were employed. The dose-length product was 336.16 mGy-cm. COMPARISON: Radiographs dated 12/09/[address] dated 03/20/2023 FINDINGS: There has been interval amputation of the fourth toe with smooth corticated osteotomy margins at the remaining base of the fourth proximal phalanx. There is also been interval progression of joint centered osteolysis centered at the fifth metatarsophalangeal joint with progressive osteolysis along the proximal two thirds of the fifth proximal phalanx and at the head and neck of the fifth metatarsal. This underlies an ulceration with overlying bandaging plantar/lateral to the fifth metatarsophalangeal joint. Portions of the erosions are without cortication suggesting ongoing osteolysis and acute on chronic osteomyelitis. There is some aggressive appearing periosteal reaction along the proximal diaphysis of the fifth metatarsal. There is chronic juxta articular erosions with overhanging consistent sclerotic margins at the lateral base of the fourth metatarsal and at the medial head of the first proximal phalanx which are more suggestive of changes of gout. Mild polyarticular osteoarthritis at the first metatarsophalangeal and a few of the tarsal metatarsal and interphalangeal joints. The right foot is included on the images but will be described on separate report. IMPRESSION: 1. . Progression of likely ongoing chronic osteomyelitis at the base of the fift h proximal phalanx at the head and neck of the fifth metatarsal. 2. Chronic erosions at the head of the first proximal phalanx and at the base of the fourth metatarsal with location and appearance most consistent with gout. Discharge Plan Discharge Attending physician on discharge: Mary Cartagena Consulting providers: Everette Santiago; Kai Dumont; Sadia Shannon; Manish Borja; Cassidy Leung; Mary Cartagena; Adalid De Los Santos; Parag Dumont; Robert Hopkins Jr.; Bright Nathan; Trevor Hall Discharging Clinician: Gale Birch Anticipated Discharge Date/Time: 10/24/24 16:22 Patient Disposition: Home Activity: may shower Diet: diabetic Wound Care Instructions: change dressing daily and other - see discharge instructions Discharge Instructions: 1). Diabetic foot wound * Wound care: Apply silver gel and pack the left foot wound with 1/4 iodoform gauze, cover with 4x4 gauze, and wrap with rolled gauze. Apply silver gel to right foot wound and cover with 4x4 gauze and wrap with rolled gauze. Change both wounds daily. * Wear postop shoes when walking or up with any activity during the day * dials supervisor antibiotics and take as prescribed * Follow-up with Dr. Dumont in the office in 2 weeks. Call to schedule an appointment [phone] 2). Diabetes * I have resume your insulin take as prescribed * I recommend a diabetic diet * Follow-up a1c in 3 months * Blood sugar control is important in wound healing How can you care for yourself at home? ? Keep track of any new symptoms or changes in your symptoms. ? Rest until you feel better. ? Be safe with medicines. Take your medicines exactly as prescribed. Call your doctor if you think you are having a problem with your medicine. ? Do not drive after taking a prescription pain medicine. ? Ensure to follow-up with primary care physician as indicated and provide updated medication list provided to you at discharge. When should you call for help? Call 911 anytime you think you may need emergency care. For example, call if: ? You passed out (lost consciousness). Call your doctor now or seek immediate medical care if: ? You have new symptoms like fever, difficulty breathing, Chest pain, vomiting, or rash. ? You have new or different pain. ? You are confused and are having trouble thinking clearly. ? Your symptoms are getting worse. Watch closely for changes in your health, and be sure to contact your doctor if: ? You do not get better as expected. Patient Instructions: Antibiotic Form, Foot Care for People with Diabetes (DC), Removal of a Central Line, PICC, or Midline Catheter (DC), Type 2 Diabetes Management for Adults (DC) Patient Language: Guyanese Stand Alone Forms: General Discharge Information Follow-up/Referrals: Kai Dumont MD [Physician] - 2 Weeks Discharge Medications: New oxycodone-acetaminophen 5-325 mg Tablet 0.5 tablet PO Q6-8H PRN (Reason: Pain Rated 4-6) Qty: 20 0RF doxycycline hyclate 100 mg Tablet 100 mg PO Q12HR Qty: 28 0RF amoxicillin-pot clavulanate 875-125 mg tablet 1 tablet PO Q12H Qty: 28 0RF Continued simvastatin 20 mg tablet 20 mg PO HS metoprolol tartrate 50 mg tablet 50 mg PO BID omeprazole 20 mg Capsule,Delayed Release(Dr/Ec) 20 mg PO DAILY sertraline 100 mg tablet 100 mg PO Q24H buspirone 15 mg tablet 10 mg PO TID Jardiance 25 mg tablet 25 mg PO DAILY lisinopril-hydrochlorothiazide 20-12.5 mg tablet 1 tablet PO DAILY insulin glargine [Lantus U-100 Insulin] 100 unit/mL Solution 40 unit subcut QHS Qty: 10 0RF Discontinued sertraline 50 mg tablet 100 mg PO DAILY Date of admission: 10/20/24 10:32 Primary Care Provider: CaridadAltagracia Admitting Provider: Wili Goncalves Attending physician on admission: Gale Birch Condition: Stable Quality VTE Prophylaxis VTE prophylaxis: pharmacologic ordered -Patient's previous records reviewed on admission -ER notes reviewed in detail on admission -discussed all findings and current treatment plan with patient/Family/POA -Consultations reviewed for recommendations -Patient's disposition for safe discharge discussed with manager rn case Dictation performed by [employer] direct speech recognition software, therefore airplane pilot helper variants and typographical errors may occur. Hospitalist MIPS Heart Failure (Exclusion) Patient has history of Heart Transplant or Left Ventricular Assistive Device?: No IF YES, STOP HERE Heart Failure (Qualifier) Patient has current or prior documentation of LVEF less than or equal to 40%, or mod/servere depressed LVSF?: No IF NO, STOP HERE
[2024-10-24] MEDS: NEOMYCIN/POLYMYXIN/BACITRACIN OINTMENT PACKET 1 PACKET (16:45)
--- NOTE | 2024-10-24 18:00 | PC.NURSE ---
On 10/24/24, the TRAY WORKER, Sonia Simon, provided care and completed [facility] documentation on this patient. I have reviewed the TRAY WORKER's documentation and agree with the findings.
--- NOTE | 2024-10-29 15:16 | PCCDE ---
10/29/[address] DM educator courtesy follow up call. Outgoing recording stated I'm sorry, your call cannot be completed........
== END 2024-10-24 18:00 | disposition home or self-care (01) | DRG 317 ==
LOC: ANHED 14:20 → ANHICU 16:49 → ANH3MEDSUR 10-20 16:21
PROVIDERS: General Practice; Internal Medicine; Nurse Practitioner Gerontology; Surgery; Admitting Provider Internal Medicine; Emergency Provider Emergency Medicine; PCP Physician Assistant; Visit Provider Nurse Practitioner Family
PROC: 0KBW0ZZ Excision of Left Foot Muscle, Open Approach (ICD-10-PCS; principal; 2024-10-23 13:00)
DX: E11.621 Type 2 diabetes mellitus with foot ulcer (principal); M86.672 Other chronic osteomyelitis, left ankle and foot; E11.69 Type 2 diabetes mellitus with other specified complication; L97.519 Non-pressure chronic ulcer of other part of right foot with unspecified severity; L97.529 Non-pressure chronic ulcer of other part of left foot with unspecified severity; E11.628 Type 2 diabetes mellitus with other skin complications; E11.10 Type 2 diabetes mellitus with ketoacidosis without coma; E11.22 Type 2 diabetes mellitus with diabetic chronic kidney disease; E11.40 Type 2 diabetes mellitus with diabetic neuropathy, unspecified; E11.319 Type 2 diabetes mellitus with unspecified diabetic retinopathy without macular edema; E11.65 Type 2 diabetes mellitus with hyperglycemia; E11.43 Type 2 diabetes mellitus with diabetic autonomic (poly)neuropathy; K31.84 Gastroparesis; N17.9 Acute kidney failure, unspecified; L03.115 Cellulitis of right lower limb; I12.9 Hypertensive chronic kidney disease with stage 1 through stage 4 chronic kidney disease, or unspecified chronic kidney disease; N18.32 Chronic kidney disease, stage 3b; K21.9 Gastro-esophageal reflux disease without esophagitis; F31.9 Bipolar disorder, unspecified; Z89.422 Acquired absence of other left toe(s); Z89.421 Acquired absence of other right toe(s); Z87.891 Personal history of nicotine dependence; Z91.148 Patient's other noncompliance with medication regimen for other reason
CPT/HCPCS: 36415; 36569; 36600; 73700; 80048; 80053; 80069; 80202; 81001; 82010; 82375; 82805; 82948; 83036; 83050; 83605; 83735; 84100; 84132; 85018; 85025; 85027; 86850; 86900; 86901; 87040; 87070; 87075; 87181; 87205; 87641; 96361; 96365; 96366; 96367; 96368; 96372; 96375; 99285; A9270; C1751; G0378; G0379; J0360; J0692; J0780; J1630; J1650; J1815; J1836; J2003; J2250; J2405; J2470; J2704; J2765; J3010; J3370; J3475; J3480; J7030; J7040; J7120

== ENCOUNTER 2024-10-24 21:03 | Emergency (ER) | payer SELFPAY ==
--- OUTSIDE RECORDS SUMMARY | 2024-10-24 21:05 | XMS_ITS | Data Portability ---
Author Organization [facility] Address [address] [place] [address] Care Team Providers Care Summer Associate Name Role Phone MYRIAM CAPELLAN Primary Care [...] DO Not Attach Compendium, Do Not Delete/merge, [id number] 12:59:32 CMP, serum or plasma 2024 025 LETY LABMICHELLE, [facility], [address], [place], [address], 5 22:08:25 lipid panel, serum 2024 025 LETY NUÑEZ, [facility], [address], [place], [address], 5 22:08:24 albumin/cr eatinine, mass ratio, urine 2024 025 LETY NUÑEZ, [address] [place] [address], [address], [place], [address], 5 08:32:29 lipid panel, serum 2023 024 LETY SHOOKASHLEY, [address], [address], [place], [address], 4 00:07:36 CMP, serum or plasma 2023 024 LETY SHOOKRP, [address], [address], [place], [address], 4 00:07:37 albumin/cr eatinine, mass ratio, urine 2023 024 LETY SHOOKASHLEY, [address], [address], [place], [address], 4 09:16:55 HbA1c (hemoglobi n A1c), blood 2023 [email or web address] In-Office Order, Internal Use Only DO Not Attach Compendium DO Not Attach Compendium, Do Not Delete/merge, [id number] 4 15:24:43 noninvasiv e colorectal cancer DNA + occult blood screening, QL, stool 2023 [email or web address] [employer] (Cologuard Orders Only), [address], [address], [place], [address], 4 15:24:28 lipid panel, serum 2022 023 LETY SHOOKASHLEY, [address], [address], [place], [address], 3 16:27:26 CMP, serum or plasma 2022 023 LETY PRIDEMICHELLE, [address]erv[address], [address], [place], [address], 3 16:27:25 albumin/cr eatinine, mass ratio, urine 2022 023 LETY PRIDEMICHELLE, [address], [address], [place], [address], 3 16:27:25 HbA1c (hemoglobi n A1c), blood 2022 023 [email or web address] In-Office Order, Internal Use Only DO Not Attach Compendium DO Not Attach Compendium, Do Not Delete/merge, [id number] 3 16:27:17 noninvasiv e colorectal cancer DNA + occult blood screening, QL, stool 2022 023 [employer] (Cologuard Orders Only), [address], [address], [place], [address], 4 10:35:33 lipid panel, serum 2022 023 LETY SHANNENMICHELLE, [address], [address], [place], [address], 3 15:11:03 CMP, serum or plasma 2022 023 LETY SHANNENMICHELLE, [facility] [address], [address], [place], [address], 3 15:11:04 albumin/cr eatinine, mass ratio, urine 2022 023 [facility]Y [facility], [address], [address], [place], [address], 3 15:11:02 HbA1c (hemoglobi n A1c), blood 2022 023 LETY SHANNENVALERIA, [facility] [address], [address], [place], [address], 3 15:11:04 Referral endocrinol ogy referral [address] [facility], [address], [address], [place], [address], 5 16:00:48 trailer steerer referral [email or web address], [address], [place], [address], 5 12:47:45 wound care referral 2024 025 [email or web address] [facility], [facility], [place], [address], 5 12:24:28 diabetic ophthalmol ogy referral 2023 024 [email or web address] [facility], [place], [address], 4 07:53:[address] referral 2023 024 [email or web address] [facility], [address] [place] [address], [address], [address], [place], [address], 4 08:04:[address] referral 2023 024 [place] Se Herman MD, [address], [place], [address], 4 11:44:06 trailer steerer referral 2023 024 [facility], [address], [place], [address], 5 10:17:25 trailer steerer referral [email or web address] [facility], [address], [place], [address], 4 15:35:[address] referral 2022 023 [email or web address], [address] [facility] , [address], [address], [place], [address], 4 11:42:21 diabetic ophthalmol ogy referral 2022 023 [email or web address] [employer], [address], [place], [address], 3 08:28:38 diabetic ophthalmol ogy referral 2022 023 [email or web address] [employer], [address], [place], [address], 3 10:51:40 Procedures colonoscop y screening (PROC) 2022 023 [email or web address] Goldy Edmond MD, [address] [facility] [address], [address], [place], [address], 3 11:40:33 Surgeries None recorded. Imaging XR, toe(s) 2024 025 [email or web address] [facility] ([facility]), [address], [place], [address], 5 08:07:30 Medication Orders Lantus U-100 Insulin 100 unit/mL subcutaneo us solution 2024 025 [facility][id number], [address], [place], [place], [id number], 5 12:22:27 simvastati n 20 mg tablet 2024 025 [facility] #07316, [address], [place], [place], [id number], 5 12:22:28 sertraline 100 mg tablet [address] [facility] #95683, [address], [place], [place], [id number], 5 12:22:28 buspirone 10 mg tablet [address] [facility] #77955, [address], [place], [place], [id number], 5 12:22:28 metoprolol tartrate 50 mg tablet [address] [facility] #65353, [address], [place], [place], [id number], 5 12:52:46 lisinopril 20 mg-hydroch lorothiazi de 12.5 mg tablet [address] [facility] #68724, [address], [place], [place], [id number], 5 12:22:28 Jardiance 25 mg tablet 2023 025 LETY [facility] #84350, [address], [place], [place], [id number], 5 11:53:34 simvastati n 20 mg tablet [address] [facility] #99590, [address], [place], [place], [id number], 4 15:24:28 Lantus U-100 Insulin 100 unit/mL subcutaneo us solution [address] [facility] #01775, [address], [place], [place], [id number], 4 15:24:29 sertraline 50 mg tablet [address] [facility] #91555, [address], [place], [place], [id number], 4 15:24:28 lisinopril 20 mg-hydroch lorothiazi de 12.5 mg tablet [address] [facility] #46422, [address], [place], [place], [id number], 4 15:24:28 metoprolol tartrate 50 mg tablet [address] [facility] #15740, [address], [place], [place], [id number], 4 15:24:28 Silvadene 1 % topical cream 2022 023 [facility] #55033, [address], [place], [place], [id number], 3 16:27:22 Jardiance 25 mg tablet 2022 023 [facility] #46385, [address], [place], [place], [id number], 5 11:53:15 Ozempic 0.25 mg or 0.5 mg (2 mg/1.5 mL) subcutaneo us pen injector 2022 024 [facility] #31515, [address], [place], [place], [id number], 4 15:16:18 simvastati n 20 mg tablet 2022 023 [facility] #77485, [address], [place], [place], [id number], 3 08:24:36 sertraline 50 mg tablet 2022 023 [facility] #80246, [address], [place], [place], [id number], 3 16:43:30 lisinopril 20 mg-hydroch lorothiazi de 12.5 mg tablet 2022 023 [facility] #68306, [address], [place], [place], [id number], 3 08:24:35 metoprolol tartrate 50 mg tablet 2022 023 [facility] #33715, [address], [place], [place], [id number], 3 08:24:36 sertraline 50 mg tablet 2022 023 [facility] #82273, [address], [place], [place], [id number], 3 10:40:37 sertraline 50 mg tablet 2022 023 [facility] #78778, [address], [place], [place], [id number], 3 15:22:42 Patient TargetsNo targets recorded. Patient Instructions Encounter Date Encounter Id Patient Instructions Last Modified By Organization Details Last Modified Time 10/26/2022 [id number] A healthy lifestyle: care instructions Not available 10/26/2022 14:22:21 02/28/2024 [id number] A healthy lifestyle: care instructions [email or web address] Not available 02/28/2024 15:24:28 06/28/2024 [id number] A healthy lifestyle: care instructions Not available 06/28/2024 13:05:37 cuts: care instructions Not available 06/28/2024 13:06:42 Reason for Referral Diabetic Ophthalmology 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 Referring Physician: General Maycol Giron, Encounter Date: 09/27/2022 Diabetic Ophthalmology 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 Referring Physician: General Maycol Giron, Encounter Date: 04/26/2023 Coverage Specialist Rn Referral for Foot ulcer due to type 2 diabetes mellitus Referring Physician: General Maycol Giron, Encounter Date: 04/26/2023 Training Development Manager Referral for Ch ronic kidney disease Referring Physician: General Maycol Giron, Encounter Date: 04/26/2023 Training Development Manager Referral for Ch ronic kidney disease Referring Physician: General Maycol Giron, Encounter Date: 02/28/2024 Coverage Specialist Rn Referral for Ampu tated toe Referring Physician: General Maycol Giron, Encounter Date: 02/28/2024 Diabetic Ophthalmology 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 Referring Physician: General Maycol Grion, Encounter Date: 02/28/2024 Stamper Blocker Referral for Es sential hypertension Referring Physician: General Maycol Giron, Encounter Date: 02/28/2024 Endocrinology Referral for D iabetes mellitus Referring Physician: General Maycol Grion, Encounter Date: 06/28/2024 Referring Physician: General Maycol Davis, Encounter Date: 06/28/2024 Coverage Specialist Rn Referral for Foot callus Referring Physician: General Maycol Giron, Encounter Date: 06/28/2024 Results Created Date Observation Date Name Description Value Unit Range Abnormal Flag Note LastModifiedBy Organization Detail LastModifiedTime 03/02/20 24 03/02/2024 COLOG UARD cologuard result Cancel led - Duplic ate Order not applic able Not Available [facility] (Cologuard Orders Only) [address], [place], [address], 03/02/2024 10:35:33 09/28/19 23 09/28/2022 ALBUM IN/CR EATIN INE RATIO ,URIN E creatinine, urine 139.4 mg/dL notest ab. Not Available [facility] ([facility]) [address] [place], [address], 09/28/2022 15:11:02 09/28/19 23 09/28/2022 ALBUM IN/CR EATIN INE RATIO ,URIN E albumin, urine 87.5 ug/mL notest ab. Not Available [facility] ([facility]) [address] [place], [address], 09/28/2022 15:11:02 09/28/19 23 09/28/2022 ALBUM IN/CR EATIN INE RATIO ,URIN E alb/creat ratio 63 mg/g_ creat 0-29 above high normal Vicky l: 0 - 29 Moder ately incre ased: 30 - 300 Sever massimo incre ased: >300 Not Available [facility] ([facility]) [address] [place], [address], 09/28/2022 15:11:02 09/28/19 23 09/28/2022 LIPID PANEL cholesterol, total 147 mg/dL 100-19 9 Not Available [facility] ([facility]) [address] [place], [address], 09/28/2022 15:11:03 09/28/19 23 09/28/2022 LIPID PANEL triglyceride s 212 mg/dL 0-149 above high normal Not Available [facility] ([facility]) [address] [place], [address], 09/28/2022 15:11:03 09/28/19 23 09/28/2022 LIPID PANEL HDL cholesterol 50 mg/dL >39 Not Available [facility] ([facility]) [address] [place], [address], 09/28/2022 15:11:03 09/28/19 23 09/28/2022 LIPID PANEL VLDL cholesterol aston 34 mg/dL 5-40 Not Available [facility] ([facility]) [address] [place], [address], 09/28/2022 15:11:03 09/28/19 23 09/28/2022 LIPID PANEL LDL chol calc ([facility]) 63 mg/dL 0-99 Not Available [facility] ([facility]) [address] [place], [address], 09/28/2022 15:11:03 09/28/19 23 09/28/2022 COMP. METAB OLIC PANEL (14) glucose 121 mg/dL 70-99 above high normal Not Available [facility] ([facility]) [address] [place], [address], 09/28/2022 15:11:04 09/28/19 23 09/28/2022 COMP. METAB OLIC PANEL (14) BUN 29 mg/dL 6-24 above high normal Not Available [facility] ([facility]) [address] [place], [address], 09/28/2022 15:11:04 09/28/19 23 09/28/2022 COMP. METAB OLIC PANEL (14) creatinine 2.04 mg/dL 0.76-1 .27 above high normal Not Available [facility] ([facility]) [address] [place], [address], 09/28/2022 15:11:04 09/28/19 23 09/28/2022 COMP. METAB OLIC PANEL (14) eGFR 40 mL/mi n/1.7 3 >59 below low normal Not Available [facility] ([facility]) [address] [place], [address], 09/28/2022 15:11:04 09/28/19 23 09/28/2022 COMP. METAB OLIC PANEL (14) BUN/creatini ne ratio 14 9-20 Not Available [facility] ([facility]) [address] [place], [address], 09/28/2022 15:11:04 09/28/19 23 09/28/2022 COMP. METAB OLIC PANEL (14) sodium 143 mmol/ L 134-14 4 Not Available [facility] ([facility]) [address] [place], [address], 09/28/2022 15:11:04 09/28/19 23 09/28/2022 COMP. METAB OLIC PANEL (14) potassium 4.3 mmol/ L 3.5-5. 2 Not Available [facility] ([facility]) [address] [place], [address], 09/28/2022 15:11:04 09/28/19 23 09/28/2022 COMP. METAB OLIC PANEL (14) chloride 101 mmol/ L 96-106 Not Available [facility] ([facility]) [address] [place], [address], 09/28/2022 15:11:04 09/28/19 23 09/28/2022 COMP. METAB OLIC PANEL (14) carbon dioxide, total 23 mmol/ L 20-29 Not Available [facility] ([facility]) [address] [place], [address], 09/28/2022 15:11:04 09/28/19 23 09/28/2022 COMP. METAB OLIC PANEL (14) calcium 9.7 mg/dL 8.7-10 .2 Not Available [facility] ([facility]) [address], [place], [address], 09/28/2022 15:11:04 09/28/19 23 09/28/2022 COMP. METAB OLIC PANEL (14) protein, total 7.5 g/dL 6.0-8. 5 Not Available [facility] ([facility]) [address] [place], [address], 09/28/2022 15:11:04 09/28/19 23 09/28/2022 COMP. METAB OLIC PANEL (14) albumin 4.6 g/dL 4.0-5. 0 Not Available [facility] ([facility]) [address] [place], [address], 09/28/2022 15:11:04 09/28/19 23 09/28/2022 COMP. METAB OLIC PANEL (14) globulin, total 2.9 g/dL 1.5-4. 5 Not Available [facility] ([facility]) [address], [place], [address], 09/28/2022 15:11:04 09/28/19 23 09/28/2022 COMP. METAB OLIC PANEL (14) A/G ratio 1.6 1.2-2. 2 Not Available [facility] ([facility]) [address] [place], [address], 09/28/2022 15:11:04 09/28/19 23 09/28/2022 COMP. METAB OLIC PANEL (14) bilirubin, total 0.4 mg/dL 0.0-1. 2 Not Available [facility] ([facility]) [address] [place], [address], 09/28/2022 15:11:04 09/28/19 23 09/28/2022 COMP. METAB OLIC PANEL (14) alkaline phosphatase 114 IU/L 44-121 Not Available [facility] ([facility]) [address] [place], [address], 09/28/2022 15:11:04 09/28/19 23 09/28/2022 COMP. METAB OLIC PANEL (14) AST (SGOT) 17 IU/L 0-40 Not Available [facility] ([facility]) [address], [place], [address], 09/28/2022 15:11:04 09/28/19 23 09/28/2022 COMP. METAB OLIC PANEL (14) ALT (SGPT) 13 IU/L 0-44 Not Available [facility] ([facility]) [address], [place], [address], 09/28/2022 15:11:04 09/28/19 23 09/28/2022 HEMOG LOBIN A1C hemoglobin A1C 9.8 % 4.8-5. 6 above high normal Predi abete s: 5.7 - 6.4 Diabe tom: >6.4 Glyce chavez contr ol for adult s with diabe tom: <7.0 Not Available [facility] ([facility]) [address], [place], [address], 09/28/2022 15:11:04 04/26/20 23 04/26/2023 HbA1c (hemo globi n A1c), blood HbA1c 8.3 Not Available In-Office Order Internal Use Only DO Not Attach Compendium DO Not Attach Compendium, Do Not Delete/merge, [id number] 04/26/2023 16:22:54 02/28/2002/29/2024 LIPID PANEL cholesterol, total 186 mg/dL 100-[address] [facility] [address] [place], [address], 02/29/2024 00:07:36 02/28/20 24 02/29/2024 LIPID PANEL triglyceride s 212 mg/dL 0-149 above high normal Not Available [facility] [address] [place], [address], 02/29/2024 00:07:36 02/28/20 24 02/29/2024 LIPID PANEL HDL cholesterol 74 mg/dL 40-999 Not Available [facility] Department [address] [place], [address], 02/29/2024 00:07:36 02/28/20 24 02/29/2024 LIPID PANEL VLDL cholesterol aston 42 mg/dL 5-40 above high normal Not Available [facility] [address] [place], [address], 02/29/2024 00:07:36 02/28/20 24 02/29/2024 LIPID PANEL LDL chol calc ([facility]) 102 mg/dL 0-99 above high normal Not Available [facility] [address] [place], [address], 02/29/2024 00:07:36 02/28/20 24 02/29/2024 COMP. METAB OLIC PANEL (14) glucose 434 mg/dL 70-99 panic high RESUL TS VERGEOVANNI IED AND LANDRUM D TO Dr. Tara donahue BY Gasper Membreno MLT AT 2250 ON 02/27. Not Available [facility] [address] [place], [address], 02/29/2024 00:07:37 02/28/20 24 02/29/2024 COMP. METAB OLIC PANEL (14) BUN 16 mg/dL 6-[address] [facility] [address] [place], [address], 02/29/2024 00:07:37 02/28/20 24 02/29/2024 COMP. METAB OLIC PANEL (14) creatinine 1.49 mg/dL 0.76-1 .27 above high normal Not Available [facility] [address] [place], [address], 02/29/2024 00:07:37 02/28/20 24 02/29/2024 COMP. METAB [...] disre devin that value . Not Available [facility] [address] [place], [address], 02/29/2024 00:07:37 02/28/20 24 02/29/2024 COMP. METAB OLIC PANEL (14) BUN/creatini ne ratio 11 9-20 Not Available [facility] [address] [place], [address], 02/29/2024 00:07:37 02/28/2002/29/2024 COMP. METAB OLIC PANEL (14) sodium 136 mmol/ L 134-[address] [facility] Department [address] [place] [address], [address], 02/29/2024 00:07:37 02/28/20 24 02/29/2024 COMP. METAB OLIC PANEL (14) potassium 4.3 mmol/ L 3.5-5. [address] [facility] [address] [place], [address], 02/29/2024 00:07:37 02/28/20 24 02/29/2024 COMP. METAB OLIC PANEL (14) chloride 97 mmol/ L 96-[address] [facility] [address] [place], [address], 02/29/2024 00:07:37 02/28/20 24 02/29/2024 COMP. METAB OLIC PANEL (14) carbon dioxide, total 29 mmol/ L 20-[address] [facility] [address] [place], [address], 02/29/2024 00:07:37 02/28/20 24 02/29/2024 COMP. METAB OLIC PANEL (14) calcium 9.4 mg/dL 8.7-[address] [facility] [address] [place], [address], 02/29/2024 00:07:37 02/28/2002/29/2024 COMP. METAB OLIC PANEL (14) protein, total 6.7 g/dL 6.0-8. [address] [facility] [address] [place], [address], 02/29/2024 00:07:37 02/28/2002/29/2024 COMP. METAB OLIC PANEL (14) albumin 4.0 g/dL 4.1-5. 1 below low normal Not Available [facility] [address] [place], [address], 02/29/2024 00:07:37 02/28/20 24 02/29/2024 COMP. METAB OLIC PANEL (14) globulin, total 2.7 g/dL 1.5-4. [address] [facility] [address] [place], [address], 02/29/2024 00:07:37 02/28/2002/29/2024 COMP. METAB OLIC PANEL (14) A/G ratio 1.0 1.2-2. 2 below low normal Not Available [facility] [address] [place], [address], 02/29/2024 00:07:37 02/28/2002/29/2024 COMP. METAB OLIC PANEL (14) bilirubin, total 0.4 mg/dL 0.0-1. [address] [facility] [address] [place], [address], 02/29/2024 00:07:37 02/28/2002/29/2024 COMP. METAB OLIC PANEL (14) alkaline phosphatase 152 IU/L 44-121 above high normal Not Available [facility] [address] [place], [address], 02/29/2024 00:07:37 02/28/20 24 02/29/2024 COMP. METAB OLIC PANEL (14) AST (SGOT) 17 IU/L 0-40 Not Available [facility] Department [address] [place], [address], 02/29/2024 00:07:37 02/28/20 24 02/29/2024 COMP. METAB OLIC PANEL (14) ALT (SGPT) 17 IU/L 0-44 Not Available [facility] Department [address] [place], [address], 02/29/2024 00:07:37 02/28/20 24 02/29/2024 ALBUM IN/CR EATIN INE RATIO ,URIN E creatinine, urine 80.4 mg/dL notest ab. Not Available [facility] ([facility]) [address] [place], [address], 02/29/2024 09:16:55 02/28/20 24 02/29/2024 ALBUM IN/CR EATIN INE RATIO ,URIN E albumin, urine 1225.7 ug/mL notest ab. Resul ts confi rmed on dilut ion. Not Available [facility] ([facility]) [address] [place], [address], 02/29/2024 09:16:55 02/28/20 24 02/29/2024 ALBUM IN/CR EATIN INE RATIO ,URIN E alb/creat ratio 1525 mg/g_ creat 0-29 above high normal Vicky l: 0 - 29 Moder ately incre ased: 30 - 300 Sever massimo incre ased: >300 Not Available [facility] ([facility]) [address] [place], [address], 02/29/2024 09:16:55 02/28/20 24 02/28/2024 HbA1c (hemo globi n A1c), blood HbA1c 13.6% Not Available In-Office Order Internal Use Only DO Not Attach Compendium DO Not Attach Compendium, Do Not Delete/merge, [id number] 02/28/2024 15:07:35 06/28/19 25 06/28/2024 LIPID PANEL cholesterol, total 179 mg/dL 100-[address] [facility] Department [address] [place], [address], 06/28/2024 22:08:24 06/28/19 25 06/28/2024 LIPID PANEL triglyceride s 98 mg/dL 0-149 Not Available [facility] Department [address] [place] [address], [address], 06/28/2024 22:08:24 06/28/19 25 06/28/2024 LIPID PANEL HDL cholesterol 87 mg/dL 40-999 Not Available [facility] Department [address] [place] [address], [address], 06/28/2024 22:08:24 06/28/19 25 06/28/2024 LIPID PANEL VLDL cholesterol aston 20 mg/dL 5-40 Not Available [facility] Department [address] [place], [address], 06/28/2024 22:08:24 06/28/19 25 06/28/2024 LIPID PANEL LDL chol calc (nih) 86 mg/dL 0-99 Not Available [facility] Department [address] [place], [address], 06/28/2024 22:08:24 06/28/19 25 06/28/2024 COMP. METAB OLIC PANEL (14) glucose 154 mg/dL 70-99 above high normal Not Available [facility] Department [address] [place], [address], 06/28/2024 22:08:25 06/28/19 25 06/28/2024 COMP. METAB OLIC PANEL (14) BUN 19 mg/dL 6-[address] [facility] Department [address] [place], [address], 06/28/2024 22:08:25 06/28/19 25 06/28/2024 COMP. METAB OLIC PANEL (14) creatinine 1.64 mg/dL 0.76-1 .27 above high normal Not Available [facility] [address] [place], [address], 06/28/2024 22:08:25 06/28/19 25 06/28/2024 COMP. METAB [...] disre devin that value . Not Available [facility] Department [address] [place] [address], [address], 06/28/2024 22:08:25 06/28/19 25 06/28/2024 COMP. METAB OLIC PANEL (14) BUN/creatini ne ratio 11 9-20 Not Available [facility] Department [address] [place], [address], 06/28/2024 22:08:25 06/28/19 25 06/28/2024 COMP. METAB OLIC PANEL (14) sodium 141 mmol/ L 134-[address] [facility] Department [address] [place], [address], 06/28/2024 22:08:25 06/28/19 25 06/28/2024 COMP. METAB OLIC PANEL (14) potassium 5.0 mmol/ L 3.5-5. [address] [facility] [address] [place], [address], 06/28/2024 22:08:25 06/28/19 25 06/28/2024 COMP. METAB OLIC PANEL (14) chloride 99 mmol/ L 96-[address] [facility] [address] [place], [address], 06/28/2024 22:08:25 06/28/19 25 06/28/2024 COMP. METAB OLIC PANEL (14) carbon dioxide, total 30 mmol/ L 20-29 above high normal Not Available [facility] [address] [place], [address], 06/28/2024 22:08:25 06/28/19 25 06/28/2024 COMP. METAB OLIC PANEL (14) calcium 9.4 mg/dL 8.7-[address] [facility] [address] [place], [address], 06/28/2024 22:08:25 06/28/19 25 06/28/2024 COMP. METAB OLIC PANEL (14) protein, total 6.7 g/dL 6.0-8. [address] [facility] [address] [place], [address], 06/28/2024 22:08:25 06/28/19 25 06/28/2024 COMP. METAB OLIC PANEL (14) albumin 4.1 g/dL 4.1-5. [address] [facility] [address] [place], [address], 06/28/2024 22:08:25 06/28/19 25 06/28/2024 COMP. METAB OLIC PANEL (14) globulin, total 2.6 g/dL 1.5-4. [address] [facility] [address] [place], [address], 06/28/2024 22:08:25 06/28/19 25 06/28/2024 COMP. METAB OLIC PANEL (14) A/G ratio 2.0 1.2-2. [address] [facility] [address] [place], [address], 06/28/2024 22:08:25 06/28/19 25 06/28/2024 COMP. METAB OLIC PANEL (14) bilirubin, total 0.2 mg/dL 0.0-1. [address] [facility] [address] [place], [address], 06/28/2024 22:08:25 06/28/19 25 06/28/2024 COMP. METAB OLIC PANEL (14) alkaline phosphatase 148 IU/L 44-121 above high normal Not Available [facility] Department [address] [place], [address], 06/28/2024 22:08:25 06/28/19 25 06/28/2024 COMP. METAB OLIC PANEL (14) AST (SGOT) 17 IU/L 0-40 Not Available [facility] Department [address] [place], [address], 06/28/2024 22:08:25 06/28/19 25 06/28/2024 COMP. METAB OLIC PANEL (14) ALT (SGPT) 14 IU/L 0-44 Not Available [facility] Department [address] [place], [address], 06/28/2024 22:08:25 06/28/19 25 06/29/2024 ALBUM IN/CR EATIN INE RATIO ,URIN E creatinine, urine 46.5 mg/dL notest ab. Not Available [facility] ([facility]) [address] [place], [address], 06/29/2024 08:32:29 06/28/19 25 06/29/2024 ALBUM IN/CR EATIN INE RATIO ,URIN E albumin, urine 217.3 ug/mL notest ab. Not Available [facility] ([facility]) [address], [place], [address], 06/29/2024 08:32:29 06/28/19 25 06/29/2024 ALBUM IN/CR EATIN INE RATIO ,URIN E alb/creat ratio 467 mg/g_ creat 0-29 above high normal Vicky l: 0 - 29 Moder ately incre ased: 30 - 300 Sever massimo incre ased: >300 Not Available [facility] ([facility]) [address], [place], [address], 06/29/2024 08:32:29 06/28/19 25 06/28/2024 HbA1c (hemo globi n A1c), blood HbA1c 14.9 Not Available In-Office Order Internal Use Only DO Not Attach Compendium DO Not Attach Compendium, Do Not Delete/merge, [id number] 06/28/2024 12:13:03 03/20/2003/20/2023 XR, chest , 2 view No observ ation record ed. [address] [address], [place], [address], 03/21/2023 15:58:08 03/20/20 23 03/20/2023 XR, foot, 2 view No observ ation record ed. [address] [address], [place], [address], 03/21/2023 15:39:32 03/21/20 23 03/20/2023 CT, ankle + foot, w/o contr ast No observ ation record ed. [address] [address], [place], [address], 03/21/2023 15:58:08 03/21/20 23 03/20/2023 CT, foot, w/o contr ast No observ ation record ed. [address] [address], [place], [address], 03/21/2023 15:58:09 11/23/19 24 11/23/2023 CT, abdom en + pelvi s, w/o contr ast No observ ation record ed. [address] [id number], [place], [address], 11/28/2023 13:53:52 11/23/19 24 11/23/2023 XR, chest , 2 view No observ ation record ed. [address], [place], [address], 11/28/2023 13:54:08 11/23/19 24 11/23/2023 CT, abdom en + pelvi s, w/o contr ast No observ ation record ed. [address], [place], [address], 12/07/2023 15:04:41 12/09/19 24 12/09/2023 XR, foot No observ ation record ed. [address], [place], [address], 12/10/2023 11:27:25 04/21/20 24 04/21/2024 XR, shoul annabelle No observ ation record ed. [address] [place], [address], 04/23/2024 13:17:36 10/20/19 25 10/19/2024 lab* No observ ation record ed. [address], [place], [address], 10/24/2024 16:21:01 10/20/19 25 10/19/2024 lab* No observ ation record ed. [address], [place], [address], 10/24/2024 16:21:06 Result Notes None recorded. Problems Name Problem SNOMED Code Status Onset Date Resolution Date Notes Provider Name and Address Organization Details Recorded Time Diabetes mellitus 23983714 Active 2017 [facility] Available [facility] 18:56[facility] 82257013 Active 2019 Not Available [facility] 4 18:56:44 Bipolar disorder 22980030 Active 2019 Diagnose d 1996 and not medicati on. Not Available [facility] 4 18:56:44 Chronic renal failure 64313150 Completed 201908/16/2019 AMOS GIRON Attn: Accounting ,[address] [facility], [place], [address] , [place] [facility] 0 12:39:44 Acid reflux 746054477 Active 2019 Not Available [facility] 4 18:56:44 Chronic kidney disease 092730093 Active 2019 Not Available [facility] 4 18:56:44 Amputate d toe 981366613 Active 2020 Not Available [facility] 4 18:56:44 Diabetic peripher al neuropat hy 429254343 Active 2020 Not Available [facility] 4 18:56:44 Cellulit is of lower limb 419537285 Active 2020 Not Available [facility] 4 18:56:44 Retinopa thy due to type 2 diabetes mellitus 447672135 Active 2021 Not Available [facility] 4 18:56:44 Paronych ia of toe of right foot 40486024080 396551 Active 2021 Not Available [facility] 4 18:56:44 Abnormal foot pulse 44925328 Active 2021 Not Available [facility] 4 18:56:44 History of amputati on of right foot 96362253788 609435 Active 2022 [facility] Available [facility] 4 18:56:44 Anxiety 13321709 Active 2022 Not Available [facility] 4 18:56:44 Poor oral hygiene 987179729 Active 2022 Not Available [facility] 4 18:56:44 Foot ulcer due to type 2 diabetes mellitus 68066614580 00 Active 2022 Not Available [facility] 4 18:56:44 Hyperten sive disorder 49471391 Active 2023 AMOS GIRON Attn: Accounting ,[address] [facility], [place], [address] , [place] [facility] 4 06:27:15 Generali zed anxiety disorder 44696772 Active 2024 AMOS GIRON Attn: Accounting ,[address] , [place], [address] , [facility] - [facility] 5 13:06:02 Notes:Some problems listed i n Document: #[id number] could not be added to this patient's chart. Please review this document and add these problems to the patient's chart manually as needed. Problem Notes None recorded. Procedures Surgical History Date Name Laterality Status Provider Name and Address Organization Details Recorded Time Unlisted px foot/toes completed Santo Agrawal [place] [facility] 05/27/2016 11:43:10 Imaging Results None recorded. Procedure [...] LAYER TO ENTIRE BURN AREA BY TOPICALRO NOORVIK 2 TIMES PER DAY active Not Available [...] Updated DateTime 5 180.98 cm 28.4 kg/m2 49987.4 4 g 79 /min 99 % 99 % 160 mm[Hg] 101 mm[Hg] Sandy Lackey MA [facility] 5 11:52:28 Date Recorded Body weight Body mass index (BMI) Body height Systolic blood pressure Diastolic blood pressure Provider Name and Address Organization Details Last Updated DateTime 09/27/2022 51993.98 g 29.4 kg/m2 180.98 cm 118 mm[Hg] 64 mm[Hg] Sandy Lackey MA [facility] 3 10:58:34 Date Recorded Body height Body mass index (BMI) Body weight Heart rate Oxygen saturation Oxygen saturation in Arterial blood by Pulse oximetry Systolic blood pressure Diastolic blood pressure Provider Name and Address Organization Details Last Updated DateTime 3 180.98 cm 29.6 kg/m2 88683.7 7 g 72 /min 99 % 99 % 110 mm[Hg] 60 mm[Hg] Sandy Lackey MA [facility] 3 11:49:59 Date Recorded Body height Body mass index (BMI) Body weight Heart rate Oxygen saturation Oxygen saturation in Arterial blood by Pulse oximetry Systolic blood pressure Diastolic blood pressure Provider Name and Address Organization Details Last Updated DateTime 4 180.98 cm 26.3 kg/m2 46845.5 5 g 80 /min 97 % 97 % 157 mm[Hg] 88 mm[Hg] Sandy Lackey MA [facility] 4 14:53:25 Date Recorded Body height Body mass index (BMI) Body weight Body temperature Oxygen saturation Oxygen saturation in Arterial blood by Pulse oximetry Heart rate Systolic blood pressure Diastolic blood pressure Provider Name and Address Organization Details Last Updated DateTime 3 180.98 cm 30.1 kg/m2 92791.2 4 g 98.2 [degF] 98 % 98 % 92 /min 117 mm[Hg] 78 mm[Hg] ReidCorettaLeah Light MA [facility] 3 16:13:45 Social History Question Answer Notes LastModified by Organizat ion Details LastModified Time Tobacco Smoking Status Never Smoker Remington Lackey MA [facility], 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 [facility] Information not available 08/16/2019 Do you or [...] Eating Disorder N Anemia N Heart Attack (NE) N Anxiety Disorder N Diabetes Y Muscle, [...] Details Recorded Time Pneumococcal conjugate PCV20, polysaccharide DOW910 conjugate, adjuvant, PF 4 completed AMOS GIRON Attn: Accounting,[address] [place], [address], [facility] 02/29/2024 06:43:34 Past Encounters Encounter ID Performer Location Encounter Start Date Encounter Closed Date Diagnosis/Indication Diagnosis SNOMED-CT Code Diagnosis ICD10 Code Diagnosis Note [id number] Katlyn Everett MD [facility] (Adult Med) [address] [place] [address] 05/27/2016 10:56:02 06/02/2016 10:28:10 Diabetes mellitus 22896062 E11.59 Chronic ob structive pulmonary disease 64192148 J44.9 Ex-smoker 2420274 Z87.89 1 [id number] Katlyn Everett MD [facility] (Adult Med) [address] [place] [address] 0 01/24/2017 12:26:23 01/25/2017 10:34:00 Type 2 diabetes mellitus 13563195 E11.9 Diabetic diet, exercise. Administra tion of influenza vaccine 70919973 Z23 Patient refuses. [id number] Katlyn Everett MD [facility] (Adult Med) [address] [place] [address] 07/15/2017 12:23:43 07/15/2017 13:22:30 Type 2 diabetes mellitus 42450407 E11.9 Diabetic diet, exercise. Blood sugar is 153 mg% after meal today in office. Essential hypertension 22423962 I10 BP is well controlled , on clonidine 0.2 mg twice/day. [id number] Katlyn Everett MD [facility] (Adult Med) [address] [place] [address] 10/18/2017 16:28:56 10/19/2017 10:11:39 Acute kidney injury 61084917 N17.9 Type 2 reji betes mellitus 57764400 E11.9 Diabetic diet, exercise. Blood sugar is 153 mg% after meal today in office. [id number] Katlyn Everett MD [facility] (Adult Med) [address] [place] [address] 10/28/2017 15:44:07 10/31/2017 11:40:50 Type 2 diabetes mellitus 33062297 E11.9 Diabetic diet, exercise. Blood sugar is 153 mg% after meal today in office. Blood sugar non-fastin g is 150 mg% 10-28-2017 , he is informed, will add jardiance as he requested. Had retinopath y operation recently. Acid reflux 167281506 K2 1.9 Essential hypertension 13240557 I10 BP is well controlled , on clonidine 0.2 mg twice/day. Chronic renal failure 90 061570 N18.9 [id number] Katyln Everett MD [facility] (Adult Med) [address] [place] [address] 0 11/29/2017 17:44:36 11/30/2017 11:12:55 Acid reflux 088694712 K21.9 [id number] Katlyn Everett MD [facility] (Adult Med) [address] [place] [address] 0 01/13/2018 10:15:57 01/17/2018 10:22:00 Type 2 diabetes mellitus 30602086 E11.9 Diabetic diet, exercise. Blood sugar is [...] y, microvascu lar complicati ons. Essential hypertension 47647650 I10 BP is well controlled , on clonidine 0.2 mg twice/day. Acid reflux 807021848 K2 1.9 Stable. Bipolar disorder 6012543 4 F31.9 Divalproex is temporally prescribed from this office until he sees his psychiatri st. Diabetes mellitus 476023 09 E11.59 He said that he feels so good in the recent years. Chronic renal failure 90 716060 N18.9 Stage 1.discussjuan d with patient, will refer to nephrology . [id number] AMOS GIRON [facility] [address] [place] [address] 08/16/2019 10:34:53 08/17/2019 11:05:00 Essential hypertension 80573488 I10 BP has been running high, systolic [...] is <140/90 Type 2 reji betes mellitus 55230088 E11.9 A1C in [facility] was 14. He sent home [...] foot exam at next visit Acid reflux 081911284 K2 1.9 Stable. Chronic renal failure 90 289516 N18.9 Labs from 2018 show Stage 1 [...] labs- stay hydrated- avoid NSAIDS Bipolar disorder 7686933 4 F31.9 Patient was diagnosed with bipolar disorder in 1995. Has been off medication for >2 years and does not want to start any at this time. He states his is controlled [id number] Lyric Love MD [facility] [address] [place] [address] 10/26/2019 09:41:18 11/08/2019 09:02:28 Essential hypertension 95983015 I10 bp running high, blood sugar running under 150. He said he was not taking the HCTZ, so I increased it to 25 mg and called in once daily in the morning. He will call back next week to let us know how his blood pressure is going. Type 2 reji betes mellitus 57454308 E11.59 discussed low fat, low carb diet, and encouraged exercise. Acid reflux 106494963 K2 1.9 do not lie down for 1-2 hours afer eating or drinking. [id number] Lyric Love MD [facility] [address] [place] [address] 05/15/2020 08:57:36 05/27/2020 07:45:40 Insulin treated type 2 diabetes mellitus 330099051 Z79.4 Type 2 reji betes mellitus 45545300 E11.59 discussed low fat, low carb diet, and encouraged exercise. blood sugars running 78-205 (only 1 time over 200 in last 3 months.) Essential hypertension 72848299 I10 bp running high, blood sugar running under 150. He said he was not taking the HCTZ, so I increased it to 25 mg and called in once daily in the morning. He will call back next week to let us know how his blood pressure is going. Gastroesop hageal reflux disease without esophagitis 711028251 K21.9 [id number] BUCKLEY [facility] [address] [place] [address] 04/28/2021 14:15:15 04/29/2021 09:41:35 Chronic kidney disease 475954862 N18.9 patient hospitaliz ed due to cellulitis and renal insufficie ncy. He has f/u appointmen t with nephrologi st tomorrow 04/29/21. He is to ask if he is approved to re-start lisinopril . Diabetes mellitus 741757 09 E11.59 Patient diagnosed with DM around 2015. A1C 04/27/21 6.4 ( asked to have this sent to us, she showed it on her phone from [employer]). - check sugars daily; goal fasting <130 and 1-2 hours after meal <180. call office if sugars falling under 70. Patient aware of hypoclycem ic symptoms. - discussed diet: avoid sugars, pasta, tortillas, bread, rice, potatoes - Exercise 30 min 5x week - diabetic eye exam - foot exam at next visit Essential hypertension 40959266 I10 BP has been running high, systolic [...] BP is <140/90 Cellulitis of lower limb 177676343 L03.119 patient treated at [facility] for left foot cellulitis with keflex. he is here today with boot. His foot has improved and has f/u with podiatry next week. He defers foot exam today. Diabetic p eripheral neuropathy 449781238 E11.40 patient states he cannot feel his toes. He can feel his heel. He does check feet on a regular basis. He does have referral from the hospital to see podiatry set for next week. He has had one toe amputated on right foot. Amputated toe 714024924 Z89.429 patient states he cannot feel his toes. He can feel his heel. He does check feet on a regular basis. He does have referral from the hospital to see podiatry set for next week. He has had one toe amputated on right foot. [id number] AMOS GIRON [facility] [address] [place] [address] 08/28/2021 15:27:54 09/02/2021 09:50:27 Retinopathy due to type 2 diabetes mellitus 984948034 E11.319 patient has hx of retinopath y. Has surgery 4 years ago and has not been back to opthamolog y for DM check. will send referral and he is to call and schedule. Hypertensive urgency [id number] I16.0 BP 160/110, 170/110 on repeat. Patient [...] agrees. Paronychia of toe of right foot 2716145891 6862769 L03.031 first toenail infection with clear drainage. toenail partly detached from nailbed. Starting abx Multiple b enign melanocytic nevi 986547315 D22.9 Patient with multiple moles >50. would benefit from derm exam. Had one years ago and states all normal. HIV screening 272715002 Z11.4 Obesity 079131556 E66.9 Abnormal foot pulse 6943 7003 R09.89 diminished b/l posterior tib pulse [id number] AMOS GIRON [facility] [address] [place] [address] 09/11/2021 11:11:12 09/14/2021 08:58:43 Essential hypertension 16784806 I10 BP has been running high, systolic 140 and diastolic 90-110. He saw nephrologi st last Tuesday and advised increasing lisinopril to [...] y due to type 2 diabetes mellitus 752266786 E11.319 patient has hx of retinopath y. Has surgery 4 years ago and has not been back to opthamolog y for DM check. will send referral and he is to call and schedule. Paronychia of toe of right foot 2834772765 5806133 L03.031 first toenail infection with clear drainage. toenail partly detached from nailbed. Starting abx Abnormal foot pulse 6943 7003 R09.89 diminished b/l posterior tib pulse Diabetes mellitus 805363 09 E11.59 Patient diagnosed with DM around [...] eye exam- foot exam at next visit [id number] AMOS GIRON [facility] [address] [place] [address] 09/27/2022 10:45:07 09/27/2022 11:52:33 Essential hypertension 28257491 I10 BP 118/64 He saw nephcarolin hagen last Tuesday and advised increasing lisinopril [...] y due to type 2 diabetes mellitus 377970297 E11.319 patient has hx of retinopath y. Has surgery 5 years ago and has not been back to opthamolog y for DM check. will send referral and he is to call and schedule. Diabetes mellitus 874530 09 E11.59 Patient diagnosed with DM around [...] visit Screening for malignant neoplasm of colon 037262979 Z12.11 patient is due for colonoscop yunknown family history, adoptedden ies blood/dark stools Amputated toe 533522129 Z89.429 patient states he cannot feel his toes. He can feel his heel. He does check feet on a regular basis. He does have referral from the hospital to see podiatry set for next week. He has had one toe amputated on right foot. Anxiety 25359660 F41.9 - advised counseling -Patient was educated [...] - call with questions Poor oral hygiene 137890 009 R46.89 declines dental visit [id number] AMOS GIRON [facility] [address] [place] [address] 10/26/2022 10:46:24 10/26/2022 13:06:57 Anxiety 56461465 F41.9 controlled on current regiment w/o side effects. will continue. Overweight 867919555 E66 .3 [id number] AMOS GIRON [facility] [address] [facility] [place] [address] 04/26/2023 15:57:32 04/27/2023 12:56:34 Essential hypertension 73893005 I10 controlled Advised to check BP regularly with a goal of <140/90, if BP consistent ly >140/90, advised to contact clinic Labs at next visit Discussed DASH diet Advised weight loss and diet is best way to control BP Advised 30 minutes of exercise minimum daily Advised tobacco, alcohol, caffeine all increase BP Retinopath y due to type 2 diabetes mellitus 405749013 E11.319 patient has hx of retinopath y. Has surgery 5 years ago and has not been back to opthamolog y for DM check. will send referral and he is to call and schedule. Diabetes mellitus 762799 09 E11.59 not controlled . missed all [...] visit Screening for malignant neoplasm of colon 564848299 Z12.11 patient is due for colonoscop yunknown family history, adoptedden ies blood/dark stools Amputated toe 071683102 Z89.429 patient states he cannot feel his toes. He can feel his heel. He does check feet on a regular basis. He does have referral from the hospital to see podiatry set for next week. He has had one toe (5th metatrsal) amputated on right foot 2019, Dr CASTORENA. Anxiety 09898208 F41.9 - advised counseling -Patient was educated [...] - call with questions Poor oral hygiene 356911 009 R46.89 declines dental visitIve given up on my teeth. Foot ulcer due to type 2 diabetes mellitus 4978377698 100 E11.621 seen ER Huang and has had 03/21/23 debridemen t on left foot plantar surface of 5th metatarsal . . he has hx of right foot toe amputation 5th [facility]at[facility] [address] Castorena.- podiatry- obtain notes form visit last week Chronic ki dney disease 960183262 N18.9 patient hospitaliz ed due to cellulitis and renal insufficie ncy. He has missed all appointmen ts with nephrologi st. given labs to get done. new referral sent. Hypertensive urgency [phone] [id number] I16.0 BP 160/110, 170/110 on repeat. Patient denies chest pain, sob, VENTURA, vision changes. States his BP has been this high at home. Will increase dose of metroprolo l to 50mg bid with BP monitoring over the weekend and in office BP check Tuesday. He is instructed to go to ER if CP, SOB, Vision changes, VENTURA develop. Patient agrees. [id number] Mark Plata MD [facility] [address] [place] [address] 02/28/2024 14:47:06 02/28/2024 15:42:29 Essential hypertension 02324185 I10 not controlled on Lisinopril -hcz, metoprolol [...] y due to type 2 diabetes mellitus 791301629 E11.319 patient has hx of retinopath y. Has surgery 6 years ago and has not been back to opthamolog y for DM check. will send referral and he is to call and schedule. Diabetes mellitus 248069 09 E11.59 not controlled . missed all [...] 02/2024 Screening for malignant neoplasm of colon 795081601 Z12.11 patient is due for colonoscop yunknown family history, adoptedden ies blood/dark stools Amputated toe 020872395 Z89.429 4th toe on left foot foot 5th toe amputated 2019 patient states he cannot feel his toes. He can feel his heel. He does check feet on a regular basis. He does have referral from the hospital to see podiatry set for next week. Anxiety 99766361 F41.9 - advised counseling -Patient was educated [...] - call with questions Poor oral hygiene 893987 009 R46.89 declines dental visit Chronic ki dney disease 841971696 N18.9 He has missed all appointmen ts with nephrologi st. given labs to get done. new referral sent. Overweight 365823070 E66 .3 26.3 Administra tion of pneumococcal vaccine 57669411 Z23 agrees today to pneumonia vaccine Influenza vaccination declined 912947531 Z28.21 Foot ulcer due to type 2 diabetes mellitus 3783458501 100 E11.621 shallow ulcer on left foot plantar surface of 5th metatarsal . . he has hx of right foot toe amputation 5th metatarsal [facility] [address] Castorena. Recent 4th toe amputation left foot 12/2023. Following Dr Castorena for this diabetic ulcer. His toe amputation site has healed.- podiatry- obtain notes form visit last week [id number] Mark Plata MD [facility] [address] [place] [address] 06/28/2024 11:38:54 06/28/2024 12:24:28 Diabetes mellitus 18536308 E11.59 not controlled . missed all his f/u appointmen ts.injecti ng nightly 35 increase to 40 Not checking BG. I need to adjust his insulin dose and he may need mealtime insulin but not checking glucose. had agreed to bring me glucose log but never brought it in. I educated him on CKD, HF, STROKE, NE, . He is given xray for his [...] increase doseACEi: Lisinopril pneumonia vaccine: 02/2024 Anxiety 39072955 F41.9 - advised counseling -Patient was educated [...] month - call with questions Essential hypertension [id number] I10 not controlled on Lisinopril -hcz, metoprolol [...] depression on PHQ-9 (Patient Health Questionnaire 9) [id number] 57151 Z13.31 phq 8increasin g sertraline Microalbuminuria 7058639 06 R80.9 repeatnon- compliant with nephrology f/u Skin ulcer of toe due to diabetes mellitus type 2 [id number] 1832532 E11.621 has great toe laceration without surroundin g erythema or drainagese e attached picture in chartgiven wound care referralst ressed controllin g BGneed BG logf/u Foot callus [id number] L8 4 large great toe callussent to wound care and trailer steerer Overweight 630081908 E66 .3 26.3 Health Concerns Section Related Observation LastModified by Organization Detai ls LastModified Time None Recorded Concern Status LastModified by Organization Details LastModified Time None Recorded Advance Directives Directive N: Payers Insurance Date Sequence Insurance Name Policy Number Policy Duggan Covered Member ID Duggan Member ID Guarantor Name 2021 2 [facility] [id number] Dejanelaine Sevilla [id number] Dejan Sevilla 2021 1 [place] Dejanelaine Sevilla [id number] Dejan Sevilla 2021 1 [place] Dejan Di [id number] Dejan Sevilla 08/07/2024 1 [facility] - DOS ON OR AFTER 20 (MEDICAID REPLACEMENT - HMO) Dejanelaine Sevilla [id number] Dejan Sevilla 2021 2 [facility] [id number] Dejan Di [id number] Dejan Sevilla 2021 1 [facility] - BLUE CHOICE (PPO) [id number] Dejan Di [id number] Dejan Sevilla 2021 1 [facility] (MEDICAID HMO) [id number] Dejan Di [id number] Dejan Sevilla 2021 1 [facility] - DOS PRIOR TO 2020 (MEDICAID REPLACEMENT - HMO) Dejan Di [id number] Dejan Sevilla Notes Date Note Type Note Provider Name and Address Organization Details Recorded Time 09/27/2022 text/html Dejan is a 47 yo Controlled DM2, hx retinopathy s/p laser surgery, neuropathy, amputation right foot toe, CKD here for refills and anxiety He has been complaint with all medication. No new hospitalizations. Has nephrology f/u in January. He did not follow up with trailer steerer, vascular or opthamologist. He denies cp, sob, palpitations Patient states he hates leaving his home. Having much anxiety and affecting QOL. Around age 20 he was diagnosed bipolar, they had me strapped down in [facility]. He says it was one episode and he was on seroquel and sertraline. He has not been on medication since that time. He states he thinks he was misdiagnosed. Patient is adopted and does not know family history. Patient went to [facility] one month ago for vomiting. On admission [...] had surgery AMOS GIRON Attn: [address]ing[address] [place], [address], [place] [facility] 09/29/2022 14:05:32 10/26/2022 text/html Dejan is a [...] January. He did not follow up with trailer steerer, vascular or opthamology. He denies cp, sob, palpitations AMOS GIRON Attn: Accounting[address] [facility], [place], [address], [place] [facility] 10/26/2022 14:22:42 04/26/2023 text/html Dejan is a 47 yo Uncontrolled DM2, hx retinopathy s/p laser surgery, neuropathy, amputation right foot toe, CKD here for ER f/u pt last seen 10/2022 and failed to f/u here, with nephrology, opthamology, podiatry, vascular. seen ER [facility] for left foot ulcer dx cellulitis in ER. no osteomyelitis. had 03/21/23 debridement on left foot plantar surface of 5th metatarsal. He has hx of right foot toe amputation 5th metatarsal [place] [facility] [address] Castorena. Saw [facility] wound care last week and will return in one month. healing well and next appointment. applying silvadene. taking inulin 30 units now and all morning numbers <130. He has been complaint with all medication. .He denies cp, sob, palpitations AMOS GIRON Attn: Accounting,[address] [facility], [place], [address], [facility] - [facility] 04/27/2023 08:27:50 02/28/2024 text/html Dejan [...] carbs. In December he was admitted at [facility] for left 4th toe osteomyelitis. He has been following wound car with Dr Castorena at [facility]. He has one more visit with them. says she has been applying silvadene to it. He feels anxiety has been controlled. denies depression. PHQ0. today he denies cp, sob, palpitations AMOS GIRON Attn: Accounting,[address] [facility], [place], [address], [facility] - [facility] 02/29/2024 06:44:35 06/28/2024 text/html Dejan is a 48 yo M pmhx Uncontrolled DM2, hx retinopathy s/p laser surgery, neuropathy, hx of amputation x2 toes, CKD here with for ER f/u and glucose Apr 21, 2024 he was admitted to [facility] for my mental health and they kept [...] In December 2023 he was admitted at [facility] for left 4th toe osteomyelitis. He says he has callus on R great toe. today he denies cp, sob, palpitations AMOS GIRON Attn: Accounting,[address] [facility], [place], [address], [facility] 06/28/2024 13:09:41
--- OUTSIDE RECORDS SUMMARY | 2024-10-24 21:05 | XMS_ITS | Clinical Summary ---
Author Organization [facility] Address [address] [place] [address] Care Team Providers Care Tufter Hand Name Role Phone Katlyn Everett MD Primary Care Provider [phone] [facility],non-owned Affiliates and Associated Physician Practices is amultiple site organization consisting of ambulatory clinics and hospital sitesin [place], [place], [place] and [place]. This disclosure is being madepursuant to the Care Everywhere program and may not contain all information available regarding this patient. Last updated 18.[facility] Allergies No known active allergies Medications * [...] patient's age to complete this topic Insurance [facility] SELF PAY NO INSURANCE Member Subscriber Plan / Payer (Ef fective for All Dates) Name:Dejan Sevilla W Member ID:Not on file Relation to Subscriber:Not on file Name:DEJAN SEVILLA Subscriber ID:Not on file (Home) Address: [address] [place] [id number] Payer ID:Not on file Group ID:Not on file Type:Self Pay Address: [place], [place] * Guarantor: DEJAN SEVILLA Account Type Relation to Patient Date of Phone Billing Address Personal/Family [address] [place] [address] [facility] SELF PAY NO INSURANCE Member Subscriber Plan / Payer (Ef fective for All Dates) Name:Jessica Sevillant W Member ID:Not on file Relation to Subscriber:Not on file Name:DIDEJAN Subscriber ID:Not on file Address: [address] [place] [address] Payer ID:Not on file Group ID:Not on file Type:Self Pay Address: [place], [place] [facility] SELF PAY NO INSURANCE Member Subscriber Plan / Payer (Ef fective for All Dates) Name:DiJessicant W Member ID:Not on file Relation to Subscriber:Not on file Name:DEJAN SEVILLA Subscriber ID:Not on file Address: [address] [place] [phone] Payer ID:Not on file Group ID:Not on file Type:Self Pay Address: [place], [place] [facility] SELF PAY NO INSURANCE Member Subscriber Plan / Payer (Ef fective for All Dates) Name:Dejan Sevilla Member ID:Not on file Relation to Subscriber:Not on file Name:DEJAN SEVILLA Subscriber ID:Not on file Address: [address] [place] [address] Payer ID:Not on file Group ID:Not on file Type:Self Pay Address: [place], [place] Advance Directives * Full Code (Latest Code Status on File) Date Activated Date Inactivated Comments 09/26/2017 4:39 PM 09/27/2017 2:59 PM Care Teams Tufter Hand Relationship Specialty Start Date End Date Katlyn Everett MD [address] [place] [address] PCP - General 08/17/17
--- OUTSIDE RECORDS SUMMARY | 2024-10-24 21:05 | XMS_ITS | CONTINUITY OF CARE DOCUMENT ---
Author Name anila high Address Unknown Organization [facility] Address [address] [place] [address] Phone [phone] Care Team Providers Care Telephone Appointment Clerk Name Role Phone Shamar RUBI, Huy Unavailable MONICA ANDERSON MD, CORDELL Unavailable [phone] INSURANCE PROVIDERS Payer name Policy type / Coverage type Radha red republican ID [place] MEDICAID (2) Medicaid [id number]
[2024-10-24 21:07] VITALS: BP 157/99; PULSE 106; RESP 16; TEMP 35.9; O2SAT 100
--- OUTSIDE RECORDS SUMMARY | 2024-10-25 00:43 | XMS_ITS | Clinical Summary ---
Author Organization [facility] Address Counts include [address] [facility] [place] [address] Care Team Providers Care Ceramic Tile Setter Name Role Phone Unavailable Primary Care Provider Unavailabl e Social History Tobacco Use Types Packs/Day Years Used Date Smoking Tobacco: Never Assessed Sex and Gender Information Value Date Recorded Sex Assigned at Not on file Legal Sex Male 8:16 PM CDT Gender Identity Not on file Sexual Orientation Not on file Plan of Treatment Health Maintenance Due Date Last Done Comments Colorectal Cancer Screening Colonoscopy (10 Years) 1977 Annual Physical 1980 Hepatitis C 08/11/1995 DTaP, Tdap and Td Vaccines ( 1 - Tdap) 1996 Hepatitis B Vaccines (1 of 3 - 19+ 3-dose series) 1996 COVID-19 Vaccine ( - 2023-2 5 season) 2024 Meningococcal B Vaccine Aged Out No l onger eligible based on patient's age to complete this topic Meningococcal Vaccine Aged Out No gee mona eligible based on patient's age to complete this topic Pneumococcal Vaccine: Pediat rics (0 to 5 Years) and At-Risk Patients (6 to 49 Years) Aged Out No longer eligible b ased on patient's age to complete this topic RSV Immunizations Under 20 Months Aged Out No longer eligible based on patient's age to complete this topic
--- OUTSIDE RECORDS SUMMARY | 2024-10-25 00:44 | XMS_ITS | Clinical Summary ---
Author Organization [facility] Address [address] [place] [address] Care Team Providers Care Snipper Name Role Phone Katlyn Everett MD Primary Care Provider [phone] Source Comments [facility],non-owned Affiliates and Associated Physician Practices is amultiple site organization consisting of ambulatory clinics and hospital sitesin [place], [place], [place]. This disclosure is being madepursuant to the Care Everywhere program and may not contain all information available regarding this patient. Last updated 18.[facility] Allergies No known active allergies Medications * [...] patient's age to complete this topic Insurance [facility] SELF PAY NO INSURANCE Member Subscriber Plan / Payer (Ef fective for All Dates) Name:Dejan Sevilla W Member ID:Not on file Relation to Subscriber:Not on file Name:DEJAN SEVILLA Subscriber ID:Not on file (Home) Address: [address] [place] [phone] Payer ID:Not on file Group ID:Not on file Type:Self Pay Address: [place], [place] * Guarantor: DEJAN SEVILLA Account Type Relation to Patient Date of Phone Billing Address Personal/Family [address] [place] [address] [facility] SELF PAY NO INSURANCE Member Subscriber Plan / Payer (Ef fective for All Dates) Name:Jessica Sevillant W Member ID:Not on file Relation to Subscriber:Not on file Name:DIDEJAN Subscriber ID:Not on file Address: [address] [place] [address] Payer ID:Not on file Group ID:Not on file Type:Self Pay Address: [place], [place] [facility] SELF PAY NO INSURANCE Member Subscriber Plan / Payer (Ef fective for All Dates) Name:DiJessicant W Member ID:Not on file Relation to Subscriber:Not on file Name:DEJAN SEVILLA Subscriber ID:Not on file Address: [address] [place] [phone] Payer ID:Not on file Group ID:Not on file Type:Self Pay Address: [place], [place] [facility] SELF PAY NO INSURANCE Member Subscriber Plan / Payer (Ef fective for All Dates) Name:Dejan Sevilla Member ID:Not on file Relation to Subscriber:Not on file Name:DEJAN SEVILLA Subscriber ID:Not on file Address: [address] [place] [address] Payer ID:Not on file Group ID:Not on file Type:Self Pay Address: [place], [place] Advance Directives * Full Code (Latest Code Status on File) Date Activated Date Inactivated Comments 09/26/2017 4:39 PM 09/27/2017 2:59 PM Care Teams Snipper Relationship Specialty Start Date End Date Katlyn Everett MD [address] [place] [address] PCP - General 08/17/17
--- OUTSIDE RECORDS SUMMARY | 2024-10-25 00:44 | XMS_ITS | CONTINUITY OF CARE DOCUMENT ---
Author Name anila high Address Unknown Organization [facility] Address [address] [place] [address] Phone [phone] Care Team Providers Care Iron Worker Name Role Phone Shamar RUBI, Huy Unavailable MONICA ANDERSON MD, CORDELL Unavailable INSURANCE PROVIDERS Payer name Policy type / Coverage type Radha red green party ID [place] MEDICAID (2) Medicaid [id number]
[2024-10-25 00:47] VITALS: BP 147/87; PULSE 67; RESP 17; O2SAT 97
--- NOTE | 2024-10-25 01:23 | ED_ITS ---
HPI - Skin/Abscess/Foreign Bdy General Chief complaint: Skin/Abscess/Foreign Body Stated complaint: bleeding wound Time Seen by Provider: 10/25/24 00:39 History of Present Illness HPI narrative: 49-year-old male presents to the emergency department for bleeding to his surgical site. Patient was discharged from our hospital a few hours ago after admission for DKA and diabetic foot ulcers. On 10/23/2024 patient underwent excisional debridement of the skin and subcutaneous muscle the right 1st toe interphalangeal ulcer. He was discharged at 5:30 p.m. yesterday and around 6:30 p.m. noticed that he had saturated through his bandage to his right great toe. His changed his bandage and within 30 minutes he bled through the bandage and came to the ED. He is not anticoagulated but was on Lovenox during admission. He denies any pain or fevers. No other complaints. Related Data Home Medications ?Medication ?Instructions ?Recorded ?Confirmed ?Last Taken ?Type metoprolol tartrate 50 mg tablet 50 mg PO BID 03/21/23 10/19/24 12/08/23 History omeprazole 20 mg capsule,delayed 20 mg PO DAILY 03/21/23 10/19/24 12/08/23 History release simvastatin 20 mg tablet 20 mg PO HS 03/21/23 10/19/24 12/08/23 History buspirone 15 mg tablet 10 mg PO TID 10/19/24 10/19/24 Unknown History empagliflozin 25 mg tablet 25 mg PO DAILY 10/19/24 10/19/24 10/15/24 History (Jardiance) lisinopril 20 1 tablet PO DAILY 10/19/24 10/19/24 Unknown History mg-hydrochlorothiazide 12.5 mg tablet sertraline 100 mg tablet 100 mg PO Q24H 10/19/24 10/19/24 Unknown History Allergies Allergy/AdvReac Type Severity Reaction Status Date / Time bee stings Allergy Unknown Unknown Uncoded 10/24/24 21:13 Review of Systems Review of Systems: All systems reviewed & are unremarkable except as noted in HPI and below PMFSH Past Medical History Medical History Diastolic dysfunction Echocardiogram 07/2021: Grade 1 diastolic dysfunction, no intracardiac shunt with agitated saline, EF 65-70, no valvular abnormalities, mild concentric increased left ventricular wall thickness Chronic anemia Diabetic gastroparesis Diabetic retinopathy History of GI bleed Secondary to esophagitis noted on EGD in November 2017. History of suicide attempt Chronic kidney disease, stage 3 Baseline creatinine appears to be between 1.8-2 Hypertension History of osteomyelitis Right 5th toe, status post amputation. Bipolar disorder GERD (gastroesophageal reflux disease) Surgical History Surgical History Amputation of toe of left foot 12/09/23 Open amputation left 4th toe Dr. Dumont Status post amputation of toe of right foot Right 5th toe amputation including the distal metatarsal in 2018. Open amputation of right 5th metatarsal in July 2019 for osteomyelitis of right 5th metatarsal stump. Family History Family History Other Adopted Social History Social History Social History: The patient lives in [place] with his and their 3 children, 1 biological daughter and 2 step children. 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 He is a previous smoker, both cigars and cigarettes. He does smoke cannabis. He denies alcohol use. , Pari, is his surrogate decision maker and he wishes to be a full code. Smoking packs per day: 1 Smoking cigarettes per day: 20.0 Years smoked: 20 Smoking pack-years: 20.00 Smoking status: Former smoker Second hand tobacco smoke exposure: Yes Smoking end date: 10/16/24 Additional smoking assessment comments: Alcohol intake: never Substance use: never Substance use type: does not use Last use: 03/20/23 Do You Feel Safe in your Home?: Yes Lack of Transportation: YES Lack of Food: Never True Current Housing: Decline to Answer Concerned About Future Housing: Decline to Answer Difficulty Paying Gas/Electric Bills: Decline to Answer Difficulty Paying for Meds: Decline to Answer Currently Unemployed: Decline to Answer Education: Associate Degree Difficulty w/ Childcare or Family Care: Decline to Answer Gender identity (if verbalized by the patient): Male Spiritual care concerns: No Agree to blood products: Yes Exam Narrative: GENERAL: Well-appearing, well-nourished, and in no acute distress. HEAD: Normocephalic, atraumatic. EYES: EOMI. ENT: Nares clear, no rhinorrhea or epistaxis. Mucous membranes moist. NECK: Supple. CHEST: Clear to auscultation. No respiratory distress. HEART: Regular rate and rhythm. No murmur heard. Normal peripheral pulses. EXTREMITIES: Normal range of motion. No edema. SKIN: Postoperative wound with evidence of excision of skin and subcutaneous muscle to the plantar aspect of the right great toe with active small area of pulsatile bleeding to distal aspect of the great toe. Cap refill less than 2. Sensation is decreased which is due to a chronic neuropathy. No surrounding erythema, warmth or purulence NEURO: No focal deficits. Alert and oriented x3 Course Vital Signs Vital signs: Vital Signs Temperature 96.7 F L 10/24/24 21:07 Pulse Rate 106 H 10/24/24 21:07 Respiratory Rate 16 10/24/24 21:07 Blood Pressure 157/99 H 10/24/24 21:07 Pulse Oximetry 100 10/24/24 21:07 Oxygen Delivery Room Air 10/24/24 21:07 Temperature 96.7 F L 10/24/24 21:07 Pulse Rate 67 10/25/24 00:47 Respiratory Rate 17 10/25/24 00:47 Blood Pressure 147/87 H 10/25/24 00:47 Pulse Oximetry 97 10/25/24 00:47 Oxygen Delivery Room Air 10/24/24 21:07 MDM - Skin/Abscess/Foreign Bdy MDM Narrative Medical decision making narrative: 49-year-old male presents emergency department for bleeding to his surgical site. Patient was discharged from our hospital a few hours ago after admission for DKA and diabetic foot ulcers. On 10/23/2024 he underwent excisional debridement of skin and subcutaneous muscle to the right 1st toe interphalangeal ulcer. He noticed after being home for 1 hour that he had saturated through the bandage, changed his dressing and again saturated the bandage 30 minutes of presented to the ED. the time of my evaluation vitals are stable. Patient is afebrile nontoxic appearing. He does have active bleeding to the distal aspect of the excision site. A toe tourniquet was placed and the site of bleeding was cauterized with silver nitrate. When the toe tourniquet was removed, the toe immediately pinked up and there was successful hemostasis. A pressure dressing with Surgicel applied and patient was given wound care instructions. He was advi sed to follow-up with his surgeon and given return precautions. He and his are agreeable with the plan verbalized understanding. Discharged in stable condition. Discharge Plan Discharge Clinical Impression: Bleeding from surgical wound Patient Disposition: Home Condition: Stable Instructions: Antibiotic Form Additional Instructions: You were evaluated in the emergency department for bleeding to your surgical toe wound. We were able to stop the bleeding with silver nitrate cautery, Surgicel and a pressure dressing. Please keep this dressing on for the next 24 hours. Continue your wound care as directed by your surgeon afterwards. Return to the emergency department if you develop uncontrollable bleeding again, signs of infection including fever, surrounding redness or drainage, or other concerning symptoms. Patient Language: Icelandic Prescriptions: No Action simvastatin 20 mg tablet 20 mg PO HS metoprolol tartrate 50 mg tablet 50 mg PO BID omeprazole 20 mg Capsule,Delayed Release(Dr/Ec) 20 mg PO DAILY sertraline 100 mg tablet 100 mg PO Q24H buspirone 15 mg tablet 10 mg PO TID Jardiance 25 mg tablet 25 mg PO DAILY lisinopril-hydrochlorothiazide 20-12.5 mg tablet 1 tablet PO DAILY oxycodone-acetaminophen 5-325 mg Tablet 0.5 tablet PO Q6-8H PRN (Reason: Pain Rated 4-6) Qty: 20 0RF doxycycline hyclate 100 mg Tablet 100 mg PO Q12HR Qty: 28 0RF amoxicillin-pot clavulanate 875-125 mg tablet 1 tablet PO Q12H Qty: 28 0RF insulin glargine [Lantus U-100 Insulin] 100 unit/mL Solution 40 unit subcut QHS Qty: 10 0RF Follow-up/Referrals: Caridad,AMOS Roach [Primary Care Provider] -
[2024-10-25] MEDS: SILVER NITRATE (*SP) STICK 1 EACH (01:41)
[2024-10-25] MEDS: SILVER NITRATE (*SP) STICK 4 EACH (01:41)
[2024-10-25] MEDS: CELLULOSE OXIDIZED 2 x 14 INCH 1 PKT XX (01:42)
== END 2024-10-25 02:05 | disposition home or self-care (01) ==
PROVIDERS: Emergency Provider Physician Assistant; PCP Physician Assistant
DX: L76.21 Postprocedural hemorrhage of skin and subcutaneous tissue following a dermatologic procedure (principal); S91.101A Unspecified open wound of right great toe without damage to nail, initial encounter; I50.30 Unspecified diastolic (congestive) heart failure; N18.30 Chronic kidney disease, stage 3 unspecified; I12.9 Hypertensive chronic kidney disease with stage 1 through stage 4 chronic kidney disease, or unspecified chronic kidney disease; K21.9 Gastro-esophageal reflux disease without esophagitis; F31.9 Bipolar disorder, unspecified; Z87.891 Personal history of nicotine dependence; E11.22 Type 2 diabetes mellitus with diabetic chronic kidney disease
CPT/HCPCS: 12001; 99283

== ENCOUNTER 2025-04-23 20:24 | Inpatient (IN) | payer OTHER, SELFPAY ==
--- NOTE | ~2025-04-23 | XR_ITS ---
XR foot RT 2V INDICATION: ulcer . COMPARISON: None. FINDINGS: Frontal, lateral and oblique views of the right foot were obtained. There is no acute fracture or dislocation. There is partial amputation of the fifth toe of to the base of the metatarsal. There is soft tissue gas within the soft tissue adjacent to the first metatarsal IMPRESSION: There is soft tissue gas adjacent to the first metatarsal. There are concern for osteomyelitis follow-up MRI is recommended. Reviewed, dictated and finalized at location S. TH AND FITNESS PROFESSOR IMPRESSION: There is soft tissue gas adjacent to the first metatarsal. There are concern fo r osteomyelitis follow-up MRI is recommended.
--- NOTE | ~2025-04-23 | XR_ITS ---
XR chest 1V portable INDICATION:DKA . REFERENCE: None FINDINGS: A single AP of the chest demonstrates normal heart size. The lungs are clear. There is no evidence of pneumothorax or pleural effusion. IMPRESSION: No acute pulmonary findings. Reviewed, dictated and finalized at location S. EMAKER
[2025-04-23 20:24] VITALS: BP 160/97; PULSE 124; RESP 22; TEMP 36.8; O2SAT 100
--- NOTE | 2025-04-23 20:35 | ECG_ITS ---
Test Date: 2025-04-23 20:36:05 Measurements Intervals [place] Rate: 119 P: 65 [place]: 120 QRS: -27 QRSD: 97 T: 47 QT: 328 QTc: 462 Interpretive Statements SINUS TACHYCARDIA POSSIBLE RIGHT ATRIAL ENLARGEMENT POSSIBLE LEFT ATRIAL ENLARGEMENT INCOMPLETE RIGHT BUNDLE BRANCH BLOCK PATTERN CONSISTENT WITH PULMONARY DISEASE ABNORMAL ECG Compared to ECG 11/23/2023 07:51:35 HEART RATE HAS INCREASED Electronically Signed On 04-23-2025 20:45:20 PRODUCTION ENGINEER by Radhames Frank D.O.
--- NOTE | 2025-04-23 20:35 | ED.RECABL ---
HPI - Recheck/Abnormal Lab/Rx General Chief Complaint: Recheck/Abnormal Lab/Rx Stated Complaint: HYPERGLYCEMIA, WEAKNESS, NAUSEA Time Seen by Provider: 04/23/25 20:26 History of Present Illness HPI narrative: 49-year-old male with a history of type 2 diabetes and medication noncompliance as well as frequent admissions for diabetic ketoacidosis and necrotic wounds requiring debridement. Patient is well known to General surgery staff here for debridement of bilateral foot wounds with infected ulcers requiring multiple visits and amputation. patient states that he has been feeling weak nauseous, having worsening foot pain on the right side and drainage as well as heavy breathing today. He called EMS for assistance. He states he has not had any insulin in over a week. Does not endorse why he is not taking his medications. Previous to this he has been admitted to the hospital most recently in October for diabetic ketoacidosis and infections of both feet requiring surgery. Related Data Home Medications ?Medication ?Instructions ?Recorded ?Confirmed ?Last Taken ?Type metoprolol tartrate 50 mg tablet 50 mg PO BID 03/21/23 10/19/24 12/08/23 History omeprazole 20 mg capsule,delayed 20 mg PO DAILY 03/21/23 10/19/24 12/08/23 History release simvastatin 20 mg tablet 20 mg PO HS 03/21/23 10/19/24 12/08/23 History buspirone 15 mg tablet 10 mg PO TID 10/19/24 10/19/24 Unknown History empagliflozin 25 mg tablet 25 mg PO DAILY 10/19/24 10/19/24 10/15/24 History (Jardiance) lisinopril 20 1 tablet PO DAILY 10/19/24 10/19/24 Unknown History mg-hydrochlorothiazide 12.5 mg tablet sertraline 100 mg tablet 100 mg PO Q24H 10/19/24 10/19/24 Unknown History Allergies Allergy/AdvReac Type Severity Reaction Status Date / Time bee stings Allergy Unknown Unknown Uncoded 10/24/24 21:13 Review of Systems Review of Systems: As reviewed above in HPI All systems reviewed & are unremarkable except as noted in HPI and below PMFSH Past Medical History Medical History Diastolic dysfunction Echocardiogram 07/2021: Grade 1 diastolic dysfunction, no intracardiac shunt with agitated saline, EF 65-70, no valvular abnormalities, mild concentric increased left ventricular wall thickness Chronic anemia Diabetic gastroparesis Diabetic retinopathy History of GI bleed Secondary to esophagitis noted on EGD in November 2017. History of suicide attempt Chronic kidney disease, stage 3 Baseline creatinine appears to be between 1.8-2 Hypertension History of osteomyelitis Right 5th toe, status post amputation. Bipolar disorder GERD (gastroesophageal reflux disease) Surgical History Surgical History Amputation of toe of left foot 12/09/23 Open amputation left 4th toe Dr. Dumont Status post amputation of toe of right foot Right 5th toe amputation including the distal metatarsal in 2018. Open amputation of right 5th metatarsal in July 2019 for osteomyelitis of right 5th metatarsal stump. Family History Family History Other Adopted Social History Social History Social History: The patient lives in [place] with his and their 3 children, 1 biological daughter and 2 step children. 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 He is a previous smoker, both cigars and cigarettes. He does smoke cannabis. He denies alcohol use. , Pari, is his surrogate decision maker and he wishes to be a full code. Smoking packs per day: 1 Smoking cigarettes per day: 20.0 Years smoked: 20 Smoking pack-years: 20.00 Smoking status: Former smoker Second hand tobacco smoke exposure: Yes Smoking end date: 10/16/24 Additional smoking assessment comments: Alcohol intake: never Substance use: never Substance use type: does not use Last use: 03/20/23 Lack of Transportation: YES Lack of Food: Never True Current Housing: Decline to Answer Concerned About Future Housing: Decline to Answer Difficulty Paying Gas/Electric Bills: Decline to Answer Difficulty Paying for Meds: Decline to Answer Currently Unemployed: Decline to Answer Education: Associate Degree Difficulty w/ Childcare or Family Care: Decline to Answer Gender identity (if verbalized by the patient): Male Spiritual care concerns: No Agree to blood products: Yes Exam Narrative: GENERAL: ill-appearing, dyspneic, tachypneic, nauseous and vomiting HEAD: normocephalic, atraumatic EYES: pupils equal reactive to light, extraocular movements are intact ENT: Nares clear, no rhinorrhea or epistaxis. Mucous membranes dry. NECK: Supple. CHEST: tachypneic with Kussmaul respirations, no wheezing HEART: tachycardic rate, regular rhythm. Warm extremities. ABDOMEN: Soft, nondistended, nontender EXTREMITIES: Status post amputation of 5th digit left toe, status post amputations on the right 5th toe. He has a necrotic appearing ulcer on the plantar surface the right great toe eroding into the dorsum with purulence and foul smell. Able to move the toes, no bleeding. Pulses intact. SKIN: Warm, dry, no rash. NEURO: [No focal deficits]. Alert and oriented [x3.] PSYCH: [Normal mood and affect.] Course Vital Signs Vital signs: Vital Signs Temperature 36.8 C 04/23/25 20:24 Pulse Rate 124 H 04/23/25 20:24 Respiratory Rate 22 H 04/23/25 20:24 Blood Pressure 160/97 H 04/23/25 20:24 Pulse Oximetry 100 04/23/25 20:24 Oxygen Delivery Room Air 04/23/25 20:24 Temperature 36.6 C 04/23/25 22:47 Pulse Rate 144 H 04/23/25 22:47 Respiratory Rate 24 H 04/23/25 22:47 Blood Pressure 163/95 H 04/23/25 22:47 Pulse Oximetry 100 04/23/25 22:47 Oxygen Delivery Room Air 04/23/25 20:24 Procedures EJ/Peripheral Line Arm L: EJ/Peripheral Line Date: 04/23/25 EJ/Peripheral Line Time: 21:12 Time Out Performed: Yes Skin Cleansed in Sterile Fashion: Yes Ultrasound Guided: Yes Size (gauge): 18 IV Secured and Dressing Applied: Yes Patient Tolerated Procedure: well and no complications Arm R: EJ/Peripheral Line Date: 04/23/25 EJ/Peripheral Line Time: 21:13 Time Out Performed: Yes Skin Cleansed in Sterile Fashion: Yes Ultrasound Guided: Yes Size (gauge): 20 IV Secured and Dressing Applied: Yes Patient Tolerated Procedure: well and no complications Other: EJ/Peripheral Line Date: 04/23/25 EJ/Peripheral Line Time: 21:13 Time Out Performed: Yes Skin Cleansed in Sterile Fashion: Yes Ultrasound Guided: Yes Size (gauge): 18 IV Secured and Dressing Applied: Yes Patient Tolerated Procedure: well and no complications Additional Comments: 2nd left forearm 18g USIV MDM MDM Narrative Medical decision making narrative: 49-year-old male with a history of type 2 diabetes and medication noncompliance as well as frequent admissions for diabetic ketoacidosis and necrotic wounds requiring debridement. Patient is well known to General surgery staff here for debridement of bilateral foot wounds with infected ulcers requiring multiple visits and amputation. patient states that he has been feeling weak nauseous, having worsening foot pain on the right side and drainage as well as heavy breathing today. He called EMS for assistance. He states he has not had any insulin in over a week. Does not endorse why he is not taking his medications. Previous to this he has been admitted to the hospital most recently in October for diabetic ketoacidosis and infections of both feet requiring surgery. patient is ill-appearing, septic in appearance with source to be right foot active infection. Status post amputation of 5th digit left toe, status post amputations on the right 5th toe. He has a necrotic appearing ulcer on the plantar surface the right great toe eroding into the dorsum with purulence and foul smell. Able to move the toes, no bleeding. Pulses intact. He is tachycardic, tachypneic, Kussmaul respirations, hypertensive. Afebrile 100% on room air. Blood sugar greater than 500. DKA protocol and septic protocols initiated this time. He was given a total of 3 L of fluid initial boluses started on vancomycin, cefepime and clindamycin for diabetic foot infection. X-rays of the right foot were obtained as well as ABG, beta hydroxybutyrate level, EKG, chest x-ray, urinalysis and laboratory studies. Patient placed on threat monitoring analyst. Will consult General surgery after stabilization and initial results. Patient will be admitted to the ICU. Patient is in diabetic ketoacidosis. VBG shows pH 7.3, low bicarb and low pCO2. The beta hydroxybutyrate elevated at 12. Glucose greater than 600. WBC 30k, elevated lactic, associated dehydration and kidney injury. Patient is nauseous and retching several times. QTC a reviewed 399 and he was given droperidol in addition to the Zofran he received previously for symptom control with good effect. Patient received a total of 4 L of fluid and insulin was started after potassium 40 mEq replacement and potassium containing fluids started. Patient's x-ray shows osteomyelitis over the 1st metatarsal area consistent with his exam with diabetic foot wound. He will require ICU admission and surgery consult. I discussed the case with general surgeon Dr. Kuo. Wound culture obtained. Patient is well-known to surgery staff here and will be made NPO for any interventions, debridement, amputation as needed. Spoke to the intensive care unit Dr. Santiago and he was accepted to the ICU at this time. Spoke to the mid-level provider Cecilia fuller the hospitalist team who also accepted the patient to the hospital. Patient's vitals remained tachycardic but he visibly appears improved. Awake alert oriented mentating appropriately. BP stable. No longer retching or vomiting. Antibiotics infusing as well as potassium containing fluids and insulin drip at this time. Admitted to the ICU for further intervention and treatment. Differential Diagnosis Differential Diagnosis: sepsis, uncontrolled hyperglycemia, HHS, DKA, metabolic derangement, diabetic foot infection, osteomyelitis, necrotizing fasciitis, Lab Data MDM Lab Attestation statement: I personally reviewed the patient's lab results. 04/23/25 21:06 04/23/25 21:06 Labs: Lab Results 04/23/25 04/23/25 04/23/25 Range/Units 20:30 20:41 21:06 WBC 30.7 H (4.5-10.0) K/mm3 RBC 6.06 (4.6-6.20) M/mm3 Hgb 12.8 L (14.0-18.0) g/dL Hct 43.3 (42.0-52.0) % MCV 71.5 L (80-100) fl MCH 21.1 L (26-34) pg MCHC 29.6 L (32-36) g/dl RDW 20.0 H (11.5-14.5) % Plt Count 621 H D (150-375) k/mm3 MPV 10.5 H (7.4-10.4) fl Immature Gran % (Auto) 2.0 H (0-0.5) % Neut % (Auto) 90.2 H (45.5-73.1) % Lymph % (Auto) 2.9 L (18.3-44.2) % [place] % (Auto) 4.5 (2.6-8.5) % Eos % (Auto) 0.0 (0-4.4) % Baso % (Auto) 0.4 (0.2-1.2) % Lymph # (Auto) 0.89 L (0.9-3.2) K/mm3 [place] # (Auto) 1.4 H (0.1-0.6) K/mm3 Eos # (Auto) 0.0 (0-0.3) K/mm3 Baso # (Auto) 0.1 (0.0-0.1) K/mm3 Abs Immat Gran (auto) 0.62 H (0.00-0.031) K/mm3 Absolute Neuts (auto) 27.7 H (1.3-6.7) K/mm3 Absolute Nucleated RBC 0.000 (0.0-0.012) K/mm3 Band Neutrophils % Not Reportable Nucleated RBC % 0.0 (0.0-0.2) % Platelet Estimate Increased (Adequate) Ovalocytes Occasional Schistocytes None seen PT 16.9 H (11.1-14.7) Seconds INR 1.4 APTT 29.4 (22.3-36.8) Seconds Methemoglobin 0.1 (0-1.5) %THb Sodium 131 L (137-145) mmol/L Potassium 4.0 (3.4-5.0) mmol/L Chloride 90 L (98-107) mmol/L Carbon Dioxide < 5 L (22-30) mmol/L Anion Gap (4-12) mmol/L BUN 38 H D (9-20) mg/dL Creatinine 2.44 H (0.7-1.3) mg/dL Estim Creat Clear Calc 37 ml/min Estimated GFR 29 L (59 - ) Glucose 624 H* (65-110) mg/dL POC Capillary Glucose > 500 H* (65-105) mg/dl Hemoglobin A1c 11.2 H (<5.7) % Lactic Acid 2.6 H (0.7-2.0) mmol/L Calcium 10.2 (8.4-10.2) mg/dL Phosphorus 5.7 H (2.5-4.5) mg/dL Magnesium 2.6 H (1.6-2.3) mg/dL Total Bilirubin 0.9 (0.2-1.3) mg/dL AST 20 (17-59) U/L ALT 15 (6-50) U/L Alkaline Phosphatase 192 H (38-126) U/L C-Reactive Protein 44.9 H (<1.0) mg/dL Total Protein (6.3-8.2) g/dL Albumin (3.5-5.1) g/dL Beta-Hydroxybutyrate/Acetoacetate (0.02-0.27) mmol/L Influenza A (RT-PCR) (Negative) Influenza B (RT-PCR) (Negative) RSV (RT-PCR) (Negative) SARS-CoV-2 RNA (RT-PCR) (Negative) 04/23/25 04/23/25 Range/Units 21:06 21:14 WBC (4.5-10.0) K/mm3 RBC (4.6-6.20) M/mm3 Hgb (14.0-18.0) g/dL Hct (42.0-52.0) % MCV (80-100) fl MCH (26-34) pg MCHC (32-36) g/dl RDW (11.5-14.5) % Plt Count (150-375) k/mm3 MPV (7.4-10.4) fl Immature Gran % (Auto) (0-0.5) % Neut % (Auto) (45.5-73.1) % Lymph % (Auto) (18.3-44.2) % [place] % (Auto) (2.6-8.5) % Eos % (Auto) (0-4.4) % Baso % (Auto) (0.2-1.2) % Lymph # (Auto) (0.9-3.2) K/mm3 [place] # (Auto) (0.1-0.6) K/mm3 Eos # (Auto) (0-0.3) K/mm3 Baso # (Auto) (0.0-0.1) K/mm3 Abs Immat Gran (auto) (0.00-0.031) K/mm3 Absolute Neuts (auto) (1.3-6.7) K/mm3 Absolute Nucleated RBC (0.0-0.012) K/mm3 Band Neutrophils % Nucleated RBC % (0.0-0.2) % Platelet Estimate (Adequate) Ovalocytes Schistocytes PT (11.1-14.7) Seconds INR APTT (22.3-36.8) Seconds Methemoglobin (0-1.5) %THb Sodium (137-145) mmol/L Potassium (3.4-5.0) mmol/L Chloride (98-107) mmol/L Carbon Dioxide (22-30) mmol/L Anion Gap (4-12) mmol/L BUN (9-20) mg/dL Creatinine (0.7-1.3) mg/dL Estim Creat Clear Calc ml/min Estimated GFR (59 - ) Glucose (65-110) mg/dL POC Capillary Glucose (65-105) mg/dl Hemoglobin A1c (<5.7) % Lactic Acid (0.7-2.0) mmol/L Calcium (8.4-10.2) mg/dL Phosphorus (2.5-4.5) mg/dL Magnesium (1.6-2.3) mg/dL Total Bilirubin (0.2-1.3) mg/dL AST (17-59) U/L ALT (6-50) U/L Alkaline Phosphatase (38-126) U/L C-Reactive Protein Cancelled (<1.0) mg/dL Total Protein 8.9 H (6.3-8.2) g/dL Albumin 4.1 (3.5-5.1) g/dL Beta-Hydroxybutyrate/Acetoacetate 12.90 H (0.02-0.27) mmol/L Influenza A (RT-PCR) Negative (Negative) Influenza B (RT-PCR) Negative (Negative) RSV (RT-PCR) Negative (Negative) SARS-CoV-2 RNA (RT-PCR) Negative (Negative) ABG Data ABG results: 04/23/25 20:41 Puncture Site Right radial ABG pH 7.304 L ABG pCO2 11.5 L* ABG pO2 100.5 H ABG PO2/FiO2 Ratio 4.79 ABG HCO3 5.6 L ABG O2 Saturation 97.3 ABG O2 Content 17.9 ABG Base Excess -17.8 A-a Gradient 35.5 Oxyhemoglobin 96.4 Carboxyhemoglobin 0.8 Reduced Hemoglobin 2.7 Total Hemoglobin 13.1 O2 Delivery Device Not Reportable O2 Liters/Min Not Reportable FiO2 21 Attestation: I personally reviewed and interpreted this ABG as follows: Interpretation: Metabolic acidosis with incomplete respiratory compensation Imaging Data Attestation: I personally reviewed and interpreted this imaging study as follows: My impression: Impressions Chest X-Ray 04/23/25 21:32 IMPRESSION: No acute pulmonary findings. Foot X-Ray 04/23/25 21:33 IMPRESSION: There is soft tissue gas adjacent to the first metatarsal. There are concern for osteomyelitis follow-up MRI is recommended. Radiologist's impression: ITS Impressions Chest X-Ray 04/23/25 21:32 IMPRESSION: No acute pulmonary findings. Foot X-Ray 04/23/25 21:33 IMPRESSION: There is soft tissue gas adjacent to the first metatarsal. There are concern for osteomyelitis follow-up MRI is recommended. Critical Care Time Critical Care Time Critical Care Time: Yes Time Type: Intermittent Initial evaluation, discuss w/ involved parties, attempting to gather old records: 10 minutes Documenting medical record: 15 minutes Review of results (EKG's, labs, imaging): 15 minutes Serial repeat bedside evaluation: 15 minutes Discussing case with multiple memebers of the care team and consultants: 20 minutes Total Critical Care Time: 75 Discharge Plan Discharge Clinical Impression: DKA (diabetic ketoacidosis), Diabetic infection of right foot, Osteomyelitis, Sepsis, Acute kidney injury superimposed on chronic kidney disease, Dehydration, Noncompliance Patient Disposition: Still a Patient Condition: Serious Time of Disposition: 23:14
--- OUTSIDE RECORDS SUMMARY | 2025-04-23 20:40 | XMS_ITS | Clinical Summary ---
Author Organization [facility] Address [facility] [place] [address] Care Team Providers Care Tableau Report Developer Name Role Phone Unavailable Primary Care Provider [...] - 19+ 3-dose series) 1996 COVID-19 Vaccine (2024-2 6 season) 2025 Influenza Adult (#1) 2025 Hepatitis A Vaccines Aged Out No long er eligible based on patient's age to complete this topic Meningococcal B Vaccine Aged Out No l [...]
--- OUTSIDE RECORDS SUMMARY | 2025-04-23 20:40 | XMS_ITS | Clinical Summary ---
Author Organization [facility] Address [address] [place] [address] Care Team Providers Care Workforce Development Vice President Name Role Phone Katlyn Everett MD Primary Care Provider [phone] Source Comments [facility],non-owned Affiliates and Associated Physician Practices is amultiple site organization consisting of ambulatory clinics and hospital sitesin [place], [place], [place] and [place]. This disclosure is being madepursuant to the Care Everywhere program and may not contain all information available regarding this patient. Last updated 18.[facility] Allergies No known active allergies Medications * Be aware that medications may not be up to date on this document. Alwaysverify current medications with the patient. cloNIDine (CATAPRES) 0.2 MG tablet 8 Active metoprolol tartrate IR (Lopressor) 50 MG tablet Take 1 (one) tablet by mouth 2 times daily Active simvastatin (Zocor) 20 MG tablet Take 1 (one) tablet by mouth at bedtime Active insulin glargine (Lantus/Semgle e) 100 units/mL pen Inject 20 (twenty) Units subcutaneously at bedtime 15 mL 11/30/2024 1:02 PM CDT 5 Active lisinopril-hyd roCHLOROthiazi de (Prinzide; Zestoretic) 20-12.5 MG tablet Take 1 (one) tablet by mouth once daily 30 tablet 11/30/2024 1:02 PM CDT 5 Active benzonatate (Tessalon) 100 MG capsule Take 1 (one) capsule by mouth 3 times daily as needed for Cough 30 capsule 11/30/2024 1:02 PM CDT 5 Active guaiFENesin ER 12hr (Mucinex) 600 MG tablet Take 1 (one) tablet by mouth once daily as needed for Cough 30 tablet 5 Active lidocaine viscous (Xylocaine) 2 % solution Take 5 mL by Mouth/Throat route every 3 hours as needed for Sore Throat 100 mL 11/30/2024 1:02 PM CDT 5 Active omeprazole (PriLOSEC) 20 MG capsule Take 1 (one) capsule by mouth daily before breakfast 30 capsule 11/30/2024 1:02 PM CDT 5 Active glipiZIDE CR 24hr (glipiZIDE XL) 5 MG tablet Take 1 (one) tablet by mouth daily with breakfast 30 tablet 11/30/2024 1:02 PM CDT 5 Active metFORMIN (Glucophage) 500 MG tablet Take 1 (one) tablet by mouth once daily 30 tablet 11/30/2024 1:02 PM CDT 5 Active Nutritional Supplement LIQD Take 1 container by mouth 3 times daily Low Calorie High Protein Supplement Examples: Ensure High Protein/Boost High Protein/Premier Protein High Calorie High Protein Supplement Examples: Ensure Enlive/Ensure Plus High Protein/Boost Plus/Equate Plus Diabetic Supplement Examples: Ensure High Protein/Glucerna/B oost Glucose Control/Enterex Diabetic Renal Supplement Examples: Nepro/Novosource Renal Clear Liquid Supplement Examples: Ensure Clear/Premier Protein Clear/Resource Boost Breeze/Prosource High Protein Gelatin Vegan or Milk Free Supplement Examples: Ensure Plant/Orgain 5 Active Active Problems Problem Noted Date Diagnosed Date Severe protein-calorie malnutrition 11/30/2024 Sinus tachycardia 11/27/2024 Assessment & Plan (11/29/2024 3:43 PM CDT): Noted on EKG. No cardiac complaint. Suspect in setting of infection although may have component of dehydration Continue abx No significant change with IVF Assessment & Plan (11/28/2024 12:51 PM CDT): Noted on EKG. No cardiac complaint. Suspect in setting of infection although may have component of dehydration Continue abx for now No significant change with IVF Assessment & Plan (11/27/2024 5:03 PM CDT): Noted on EKG, tachy 110-120s today. No cardiac complaint. Suspect in setting of infection although may have component of dehydration Continue abx for now Trial NS bolus Hypophosphatemia 11/25/2024 Assessment & Plan (11/29/2024 3:43 PM CDT): Stable. Etiology of hypoK and hypoPO4 most likely accounted for by renal losses and inadequate dietary intake of electrolytes. Plan: Replenish electrolytes as needed to normalize serum K and PO4 levels. Assessment & Plan (11/28/2024 12:51 PM CDT): Stable. Etiology of hypoK and hypoPO4 most likely accounted for by renal losses and inadequate dietary intake of electrolytes. Plan: Replenish electrolytes as needed to normalize serum K and PO4 levels. Assessment & Plan (11/27/2024 5:03 PM CDT): Stable. Etiology of hypoK and hypoPO4 most likely accounted for by renal losses and inadequate dietary intake of electrolytes. Plan: Replenish electrolytes as needed to normalize serum K and PO4 levels. Assessment & Plan (11/26/2024 9:27 AM CDT): Stable. Etiology of hypoK and hypoPO4 most likely accounted for by renal losses and inadequate dietary intake of electrolytes. Plan: Replenish electrolytes as needed to normalize serum K and PO4 levels. Assessment & Plan (11/25/2024 10:17 AM CDT): Worsening. Etiology of hypoK and hypoPO4 most likely accounted for by renal losses and inadequate dietary intake of electrolytes. Plan: Replenish electrolytes as needed to normalize serum K and PO4 levels. Essential (primary) hypertension 11/24/2024 Assessment & Plan (11/29/2024 3:43 PM CDT): Stable. No evidence of new target-organ dysfunction related to HTN. Past 24 hrs: Blood pressure control: adequate. Plan: Serial monitoring of blood pressure. Continue hydralazine 25 mg TID PO. Continue hydralazine 25 mg TID PO PRN for SBP > 180 mm Hg or DBP > 110 mm Hg. Assessment & Plan (11/28/2024 12:51 PM CDT): Stable. No evidence of new target-organ dysfunction related to HTN. Past 24 hrs: Blood pressure control: adequate. Plan: Serial monitoring of blood pressure. Continue hydralazine 25 mg TID PO. Continue hydralazine 25 mg TID PO PRN for SBP > 180 mm Hg or DBP > 110 mm Hg. Assessment & Plan (11/27/2024 5:03 PM CDT): Stable. No evidence of new target-organ dysfunction related to HTN. Past 24 hrs: Blood pressure control: adequate. Plan: Serial monitoring of blood pressure. Continue hydralazine 25 mg TID PO. Continue hydralazine 25 mg TID PO PRN for SBP > 180 mm Hg or DBP > 110 mm Hg. Assessment & Plan (11/26/2024 9:27 AM CDT): Stable. No evidence of new target-organ dysfunction related to HTN. Past 24 hrs: Blood pressure control: adequate. Plan: Serial monitoring of blood pressure. Continue hydralazine 25 mg TID PO. Continue hydralazine 25 mg TID PO PRN for SBP > 180 mm Hg or DBP > 110 mm Hg. Assessment & Plan (11/25/2024 10:17 AM CDT): Stable. No evidence of new target-organ dysfunction related to HTN. Past 24 hrs: Blood pressure control: adequate. Plan: Serial monitoring of blood pressure. Begin hydralazine 25 mg TID PO. Continue hydralazine 25 mg TID PO PRN for SBP > 180 mm Hg or DBP > 110 mm Hg. Assessment & Plan (11/24/2024 9:48 AM CDT): Stable. No evidence of new target-organ dysfunction related to HTN. Past 24 hrs: Blood pressure control: adequate. Plan: Serial monitoring of blood pressure. Begin hydralazine 25 mg TID PO PRN for SBP > 180 mm Hg or DBP > 110 mm Hg. Hypochloremia 11/24/2024 Assessment & Plan (11/29/2024 3:43 PM CDT): Improving. Srm Cr: 4.7 on admission date (a >=0.3 mg/dL increment from normal baseline). Etiology of CARLOTTA most likely accounted for by prerenal azotemia and/or acute tubular necrosis (ATN) occurring in the setting of hypovolemia and severe sepsis. No sonographic evidence of obstructive uropathy. He has no known history of CKD. Past 24 hrs: Srm Cr: 1.57 (decreased) Plan: Continue to measure urine output. Obtain BMP at least daily to monitor srm Cr.. No indications for STRAIGHTENER AND ALIGNER at this time. Minimize/avoid use of NSAIDs, radiocontrast dye, and other potentially nephrotoxic agents. Maintain euvolemia and adequate blood pressure (MAP >= 65 mm Hg). S/p IVF Assessment & Plan (11/28/2024 12:51 PM CDT): Improving. Srm Cr: 4.7 on admission date (a >=0.3 mg/dL increment from normal baseline). Etiology of CARLOTTA most likely accounted for by prerenal azotemia and/or acute tubular necrosis (ATN) occurring in the setting of hypovolemia and severe sepsis. No sonographic evidence of obstructive uropathy. He has no known history of CKD. Past 24 hrs: Srm Cr: 1.65 (decreased); Urine output: unable to assess. Plan: Continue to measure urine output. Obtain BMP at least daily to monitor srm Cr.. No indications for STRAIGHTENER AND ALIGNER at this time. Minimize/avoid use of NSAIDs, radiocontrast dye, and other potentially nephrotoxic agents. Maintain euvolemia and adequate blood pressure (MAP >= 65 mm Hg). S/p IVF Assessment & Plan (11/27/2024 5:03 PM CDT): Improving. Srm Cr: 4.7 on admission date (a >=0.3 mg/dL increment from normal baseline). Etiology of CARLOTTA most likely accounted for by prerenal azotemia and/or acute tubular necrosis (ATN) occurring in the setting of hypovolemia and severe sepsis. No sonographic evidence of obstructive uropathy. He has no known history of CKD. Past 24 hrs: Srm Cr: 1.7 (decreased); Urine output: unable to assess. Plan: Continue to measure urine output. Obtain BMP at least daily to monitor srm Cr.. No indications for STRAIGHTENER AND ALIGNER at this time. Minimize/avoid use of NSAIDs, radiocontrast dye, and other potentially nephrotoxic agents. Maintain euvolemia and adequate blood pressure (MAP >= 65 mm Hg). S/p maintenance IVF. Remains tachy so will trial bolus. Assessment & Plan (11/26/2024 9:27 AM CDT): Improving. Srm Cr: 4.7 on admission date (a >=0.3 mg/dL increment from normal baseline). Etiology of CARLOTTA most likely accounted for by prerenal azotemia and/or acute tubular necrosis (ATN) occurring in the setting of hypovolemia and severe sepsis. No sonographic evidence of obstructive uropathy. He has no known history of CKD. Past 24 hrs: Srm Cr: 1.7 (decreased); Urine output: unable to assess. Plan: Continue to measure urine output. Obtain BMP at least daily to monitor srm Cr.. No indications for STRAIGHTENER AND ALIGNER at this time. Minimize/avoid use of NSAIDs, radiocontrast dye, and other potentially nephrotoxic agents. Maintain euvolemia and adequate blood pressure (MAP >= 65 mm Hg). Continue D5-0.9% NaCl 100 mL/hr continuous IV. Assessment & Plan (11/25/2024 10:17 AM CDT): Improving. Srm Cr: 4.7 on admission date (a >=0.3 mg/dL increment from normal baseline). Etiology of CARLOTTA most likely accounted for by prerenal azotemia and/or acute tubular necrosis (ATN) occurring in the setting of hypovolemia and severe sepsis. No sonographic evidence of obstructive uropathy. He has no known history of CKD. Past 24 hrs: Srm Cr: 2.0 (decreased); Urine output: unable to assess. Plan: Continue to measure urine output. Obtain BMP at least daily to monitor srm Cr.. No indications for STRAIGHTENER AND ALIGNER at this time. Minimize/avoid use of NSAIDs, radiocontrast dye, and other potentially nephrotoxic agents. Maintain euvolemia and adequate blood pressure (MAP >= 65 mm Hg). Continue D5-0.9% NaCl 100 mL/hr continuous IV. Assessment & Plan (11/24/2024 9:48 AM CDT): Improving. Srm Cr: 4.7 on admission date (a >=0.3 mg/dL increment from normal baseline). Etiology of CARLOTTA most likely accounted for by prerenal azotemia and/or acute tubular necrosis (ATN) occurring in the setting of hypovolemia and severe sepsis. No sonographic evidence of obstructive uropathy. He has no known history of CKD. Past 24 hrs: Srm Cr: 3.8 (decreased); Urine output: unable to assess. Plan: Continue to measure urine output. Obtain BMP at least daily to monitor srm Cr.. No indications for STRAIGHTENER AND ALIGNER at this time. Minimize/avoid use of NSAIDs, radiocontrast dye, and other potentially nephrotoxic agents. Maintain euvolemia and adequate blood pressure (MAP >= 65 mm Hg). Continue D5-0.9% NaCl 100 mL/hr continuous IV. Metabolic acidosis 11/24/2024 Assessment & Plan (11/29/2024 3:43 PM CDT): Improving. Srm Cr: 4.7 on admission date (a >=0.3 mg/dL increment from normal baseline). Etiology of CARLOTTA most likely accounted for by prerenal azotemia and/or acute tubular necrosis (ATN) occurring in the setting of hypovolemia and severe sepsis. No sonographic evidence of obstructive uropathy. He has no known history of CKD. Past 24 hrs: Srm Cr: 1.57 (decreased) Plan: Continue to measure urine output. Obtain BMP at least daily to monitor srm Cr.. No indications for STRAIGHTENER AND ALIGNER at this time. Minimize/avoid use of NSAIDs, radiocontrast dye, and other potentially nephrotoxic agents. Maintain euvolemia and adequate blood pressure (MAP >= 65 mm Hg). S/p IVF Assessment & Plan (11/28/2024 12:51 PM CDT): Improving. Srm Cr: 4.7 on admission date (a >=0.3 mg/dL increment from normal baseline). Etiology of CARLOTTA most likely accounted for by prerenal azotemia and/or acute tubular necrosis (ATN) occurring in the setting of hypovolemia and severe sepsis. No sonographic evidence of obstructive uropathy. He has no known history of CKD. Past 24 hrs: Srm Cr: 1.65 (decreased); Urine output: unable to assess. Plan: Continue to measure urine output. Obtain BMP at least daily to monitor srm Cr.. No indications for STRAIGHTENER AND ALIGNER at this time. Minimize/avoid use of NSAIDs, radiocontrast dye, and other potentially nephrotoxic agents. Maintain euvolemia and adequate blood pressure (MAP >= 65 mm Hg). S/p IVF Assessment & Plan (11/27/2024 5:03 PM CDT): Improving. Srm Cr: 4.7 on admission date (a >=0.3 mg/dL increment from normal baseline). Etiology of CARLOTTA most likely accounted for by prerenal azotemia and/or acute tubular necrosis (ATN) occurring in the setting of hypovolemia and severe sepsis. No sonographic evidence of obstructive uropathy. He has no known history of CKD. Past 24 hrs: Srm Cr: 1.7 (decreased); Urine output: unable to assess. Plan: Continue to measure urine output. Obtain BMP at least daily to monitor srm Cr.. No indications for STRAIGHTENER AND ALIGNER at this time. Minimize/avoid use of NSAIDs, radiocontrast dye, and other potentially nephrotoxic agents. Maintain euvolemia and adequate blood pressure (MAP >= 65 mm Hg). S/p maintenance IVF. Remains tachy so will trial bolus. Assessment & Plan (11/26/2024 9:27 AM CDT): Improving. Srm Cr: 4.7 on admission date (a >=0.3 mg/dL increment from normal baseline). Etiology of CARLOTTA most likely accounted for by prerenal azotemia and/or acute tubular necrosis (ATN) occurring in the setting of hypovolemia and severe sepsis. No sonographic evidence of obstructive uropathy. He has no known history of CKD. Past 24 hrs: Srm Cr: 1.7 (decreased); Urine output: unable to assess. Plan: Continue to measure urine output. Obtain BMP at least daily to monitor srm Cr.. No indications for STRAIGHTENER AND ALIGNER at this time. Minimize/avoid use of NSAIDs, radiocontrast dye, and other potentially nephrotoxic agents. Maintain euvolemia and adequate blood pressure (MAP >= 65 mm Hg). Continue D5-0.9% NaCl 100 mL/hr continuous IV. Assessment & Plan (11/25/2024 10:17 AM CDT): Improving. Srm Cr: 4.7 on admission date (a >=0.3 mg/dL increment from normal baseline). Etiology of CARLOTTA most likely accounted for by prerenal azotemia and/or acute tubular necrosis (ATN) occurring in the setting of hypovolemia and severe sepsis. No sonographic evidence of obstructive uropathy. He has no known history of CKD. Past 24 hrs: Srm Cr: 2.0 (decreased); Urine output: unable to assess. Plan: Continue to measure urine output. Obtain BMP at least daily to monitor srm Cr.. No indications for STRAIGHTENER AND ALIGNER at this time. Minimize/avoid use of NSAIDs, radiocontrast dye, and other potentially nephrotoxic agents. Maintain euvolemia and adequate blood pressure (MAP >= 65 mm Hg). Continue D5-0.9% NaCl 100 mL/hr continuous IV. Assessment & Plan (11/24/2024 9:48 AM CDT): Improving. Srm Cr: 4.7 on admission date (a >=0.3 mg/dL increment from normal baseline). Etiology of CARLOTTA most likely accounted for by prerenal azotemia and/or acute tubular necrosis (ATN) occurring in the setting of hypovolemia and severe sepsis. No sonographic evidence of obstructive uropathy. He has no known history of CKD. Past 24 hrs: Srm Cr: 3.8 (decreased); Urine output: unable to assess. Plan: Continue to measure urine output. Obtain BMP at least daily to monitor srm Cr.. No indications for STRAIGHTENER AND ALIGNER at this time. Minimize/avoid use of NSAIDs, radiocontrast dye, and other potentially nephrotoxic agents. Maintain euvolemia and adequate blood pressure (MAP >= 65 mm Hg). Continue D5-0.9% NaCl 100 mL/hr continuous IV. Hypoalbuminemia 11/24/2024 Assessment & Plan (11/29/2024 3:43 PM CDT): Improving. Srm Cr: 4.7 on admission date (a >=0.3 mg/dL increment from normal baseline). Etiology of CARLOTTA most likely accounted for by prerenal azotemia and/or acute tubular necrosis (ATN) occurring in the setting of hypovolemia and severe sepsis. No sonographic evidence of obstructive uropathy. He has no known history of CKD. Past 24 hrs: Srm Cr: 1.57 (decreased) Plan: Continue to measure urine output. Obtain BMP at least daily to monitor srm Cr.. No indications for STRAIGHTENER AND ALIGNER at this time. Minimize/avoid use of NSAIDs, radiocontrast dye, and other potentially nephrotoxic agents. Maintain euvolemia and adequate blood pressure (MAP >= 65 mm Hg). S/p IVF Assessment & Plan (11/28/2024 12:51 PM CDT): Improving. Srm Cr: 4.7 on admission date (a >=0.3 mg/dL increment from normal baseline). Etiology of CARLOTTA most likely accounted for by prerenal azotemia and/or acute tubular necrosis (ATN) occurring in the setting of hypovolemia and severe sepsis. No sonographic evidence of obstructive uropathy. He has no known history of CKD. Past 24 hrs: Srm Cr: 1.65 (decreased); Urine output: unable to assess. Plan: Continue to measure urine output. Obtain BMP at least daily to monitor srm Cr.. No indications for STRAIGHTENER AND ALIGNER at this time. Minimize/avoid use of NSAIDs, radiocontrast dye, and other potentially nephrotoxic agents. Maintain euvolemia and adequate blood pressure (MAP >= 65 mm Hg). S/p IVF Assessment & Plan (11/27/2024 5:03 PM CDT): Improving. Srm Cr: 4.7 on admission date (a >=0.3 mg/dL increment from normal baseline). Etiology of CARLOTTA most likely accounted for by prerenal azotemia and/or acute tubular necrosis (ATN) occurring in the setting of hypovolemia and severe sepsis. No sonographic evidence of obstructive uropathy. He has no known history of CKD. Past 24 hrs: Srm Cr: 1.7 (decreased); Urine output: unable to assess. Plan: Continue to measure urine output. Obtain BMP at least daily to monitor srm Cr.. No indications for STRAIGHTENER AND ALIGNER at this time. Minimize/avoid use of NSAIDs, radiocontrast dye, and other potentially nephrotoxic agents. Maintain euvolemia and adequate blood pressure (MAP >= 65 mm Hg). S/p maintenance IVF. Remains tachy so will trial bolus. Assessment & Plan (11/26/2024 9:27 AM CDT): Improving. Srm Cr: 4.7 on admission date (a >=0.3 mg/dL increment from normal baseline). Etiology of CARLOTTA most likely accounted for by prerenal azotemia and/or acute tubular necrosis (ATN) occurring in the setting of hypovolemia and severe sepsis. No sonographic evidence of obstructive uropathy. He has no known history of CKD. Past 24 hrs: Srm Cr: 1.7 (decreased); Urine output: unable to assess. Plan: Continue to measure urine output. Obtain BMP at least daily to monitor srm Cr.. No indications for STRAIGHTENER AND ALIGNER at this time. Minimize/avoid use of NSAIDs, radiocontrast dye, and other potentially nephrotoxic agents. Maintain euvolemia and adequate blood pressure (MAP >= 65 mm Hg). Continue D5-0.9% NaCl 100 mL/hr continuous IV. Assessment & Plan (11/25/2024 10:17 AM CDT): Improving. Srm Cr: 4.7 on admission date (a >=0.3 mg/dL increment from normal baseline). Etiology of CARLOTTA most likely accounted for by prerenal azotemia and/or acute tubular necrosis (ATN) occurring in the setting of hypovolemia and severe sepsis. No sonographic evidence of obstructive uropathy. He has no known history of CKD. Past 24 hrs: Srm Cr: 2.0 (decreased); Urine output: unable to assess. Plan: Continue to measure urine output. Obtain BMP at least daily to monitor srm Cr.. No indications for STRAIGHTENER AND ALIGNER at this time. Minimize/avoid use of NSAIDs, radiocontrast dye, and other potentially nephrotoxic agents. Maintain euvolemia and adequate blood pressure (MAP >= 65 mm Hg). Continue D5-0.9% NaCl 100 mL/hr continuous IV. Assessment & Plan (11/24/2024 9:48 AM CDT): Improving. Srm Cr: 4.7 on admission date (a >=0.3 mg/dL increment from normal baseline). Etiology of CARLOTTA most likely accounted for by prerenal azotemia and/or acute tubular necrosis (ATN) occurring in the setting of hypovolemia and severe sepsis. No sonographic evidence of obstructive uropathy. He has no known history of CKD. Past 24 hrs: Srm Cr: 3.8 (decreased); Urine output: unable to assess. Plan: Continue to measure urine output. Obtain BMP at least daily to monitor srm Cr.. No indications for STRAIGHTENER AND ALIGNER at this time. Minimize/avoid use of NSAIDs, radiocontrast dye, and other potentially nephrotoxic agents. Maintain euvolemia and adequate blood pressure (MAP >= 65 mm Hg). Continue D5-0.9% NaCl 100 mL/hr continuous IV. Microcytic anemia 11/24/2024 Hypokalemia 11/23/2024 Assessment & Plan (11/29/2024 3:43 PM CDT): Stable. Etiology of hypoK and hypoPO4 most likely accounted for by renal losses and inadequate dietary intake of electrolytes. Plan: Replenish electrolytes as needed to normalize serum K and PO4 levels. Assessment & Plan (11/28/2024 12:51 PM CDT): Stable. Etiology of hypoK and hypoPO4 most likely accounted for by renal losses and inadequate dietary intake of electrolytes. Plan: Replenish electrolytes as needed to normalize serum K and PO4 levels. Assessment & Plan (11/27/2024 5:03 PM CDT): Stable. Etiology of hypoK and hypoPO4 most likely accounted for by renal losses and inadequate dietary intake of electrolytes. Plan: Replenish electrolytes as needed to normalize serum K and PO4 levels. Assessment & Plan (11/26/2024 9:27 AM CDT): Stable. Etiology of hypoK and hypoPO4 most likely accounted for by renal losses and inadequate dietary intake of electrolytes. Plan: Replenish electrolytes as needed to normalize serum K and PO4 levels. Assessment & Plan (11/25/2024 10:17 AM CDT): Worsening. Etiology of hypoK and hypoPO4 most likely accounted for by renal losses and inadequate dietary intake of electrolytes. Plan: Replenish electrolytes as needed to normalize serum K and PO4 levels. Assessment & Plan (11/24/2024 9:48 AM CDT): Improving. Etiology of hypoK most likely accounted for by inadequate dietary intake of electrolytes. Plan: Replenish K as needed to normalize serum K level. Assessment & Plan (11/23/2024 9:24 PM CDT): - CARLOTTA with Cr to 4; unclear b/l but no known hx of CKD - Renal U/S unremarkable, low c/f UTI - Nephrology following - Strict I&Os - Hold Metformin, Zestril, Jardiance for now > Daily Chem, Mg, Phos, replace electrolytes > Appreciate Nephro recs > Cont NS 30 cc/kg > Strict I&Os, PRN bladder scan, [place] if needed Hyperphosphatemia 11/23/2024 Assessment & Plan (11/29/2024 3:43 PM CDT): Improving. Srm Cr: 4.7 on admission date (a >=0.3 mg/dL increment from normal baseline). Etiology of CARLOTTA most likely accounted for by prerenal azotemia and/or acute tubular necrosis (ATN) occurring in the setting of hypovolemia and severe sepsis. No sonographic evidence of obstructive uropathy. He has no known history of CKD. Past 24 hrs: Srm Cr: 1.57 (decreased) Plan: Continue to measure urine output. Obtain BMP at least daily to monitor srm Cr.. No indications for STRAIGHTENER AND ALIGNER at this time. Minimize/avoid use of NSAIDs, radiocontrast dye, and other potentially nephrotoxic agents. Maintain euvolemia and adequate blood pressure (MAP >= 65 mm Hg). S/p IVF Assessment & Plan (11/28/2024 12:51 PM CDT): Improving. Srm Cr: 4.7 on admission date (a >=0.3 mg/dL increment from normal baseline). Etiology of CARLOTTA most likely accounted for by prerenal azotemia and/or acute tubular necrosis (ATN) occurring in the setting of hypovolemia and severe sepsis. No sonographic evidence of obstructive uropathy. He has no known history of CKD. Past 24 hrs: Srm Cr: 1.65 (decreased); Urine output: unable to assess. Plan: Continue to measure urine output. Obtain BMP at least daily to monitor srm Cr.. No indications for STRAIGHTENER AND ALIGNER at this time. Minimize/avoid use of NSAIDs, radiocontrast dye, and other potentially nephrotoxic agents. Maintain euvolemia and adequate blood pressure (MAP >= 65 mm Hg). S/p IVF Assessment & Plan (11/27/2024 5:03 PM CDT): Improving. Srm Cr: 4.7 on admission date (a >=0.3 mg/dL increment from normal baseline). Etiology of CARLOTTA most likely accounted for by prerenal azotemia and/or acute tubular necrosis (ATN) occurring in the setting of hypovolemia and severe sepsis. No sonographic evidence of obstructive uropathy. He has no known history of CKD. Past 24 hrs: Srm Cr: 1.7 (decreased); Urine output: unable to assess. Plan: Continue to measure urine output. Obtain BMP at least daily to monitor srm Cr.. No indications for STRAIGHTENER AND ALIGNER at this time. Minimize/avoid use of NSAIDs, radiocontrast dye, and other potentially nephrotoxic agents. Maintain euvolemia and adequate blood pressure (MAP >= 65 mm Hg). S/p maintenance IVF. Remains tachy so will trial bolus. Assessment & Plan (11/26/2024 9:27 AM CDT): Improving. Srm Cr: 4.7 on admission date (a >=0.3 mg/dL increment from normal baseline). Etiology of [place] most likely accounted for by prerenal azotemia and/or acute tubular necrosis (ATN) occurring in the setting of hypovolemia and severe sepsis. No sonographic evidence of obstructive uropathy. He has no known history of CKD. Past 24 hrs: Srm Cr: 1.7 (decreased); Urine output: unable to assess. Plan: Continue to measure urine output. Obtain BMP at least daily to monitor srm Cr.. No indications for STRAIGHTENER AND ALIGNER at this time. Minimize/avoid use of NSAIDs, radiocontrast dye, and other potentially nephrotoxic agents. Maintain euvolemia and adequate blood pressure (MAP >= 65 mm Hg). Continue D5-0.9% NaCl 100 mL/hr continuous IV. Assessment & Plan (11/25/2024 10:17 AM CDT): Improving. Srm Cr: 4.7 on admission date (a >=0.3 mg/dL increment from normal baseline). Etiology of CAR[place]TA most likely accounted for by prerenal azotemia and/or acute tubular necrosis (ATN) occurring in the setting of hypovolemia and severe sepsis. No sonographic evidence of obstructive uropathy. He has no known history of CKD. Past 24 hrs: Srm Cr: 2.0 (decreased); Urine output: unable to assess. Plan: Continue to measure urine output. Obtain BMP at least daily to monitor srm Cr.. No indications for STRAIGHTENER AND ALIGNER at this time. Minimize/avoid use of NSAIDs, radiocontrast dye, and other potentially nephrotoxic agents. Maintain euvolemia and adequate blood pressure (MAP >= 65 mm Hg). Continue D5-0.9% NaCl 100 mL/hr continuous IV. Assessment & Plan (11/24/2024 9:48 AM CDT): Improving. Srm Cr: 4.7 on admission date (a >=0.3 mg/dL increment from normal baseline). Etiology of CARL[place]TA most likely accounted for by prerenal azotemia and/or acute tubular necrosis (ATN) occurring in the setting of hypovolemia and severe sepsis. No sonographic evidence of obstructive uropathy. He has no known history of CKD. Past 24 hrs: Srm Cr: 3.8 (decreased); Urine output: unable to assess. Plan: Continue to measure urine output. Obtain BMP at least daily to monitor srm Cr.. No indications for STRAIGHTENER AND ALIGNER at this time. Minimize/avoid use of NSAIDs, radiocontrast dye, and other potentially nephrotoxic agents. Maintain euvolemia and adequate blood pressure (MAP >= 65 mm Hg). Continue D5-0.9% NaCl 100 mL/hr continuous IV. Assessment & Plan (11/23/2024 9:24 PM CDT): - CARLOTTA with Cr to 4; unclear b/l but no known hx of CKD - Renal U/S unremarkable, low c/f UTI - Nephrology following - Strict I&Os - Hold Metformin, Zestril, Jardiance for now > Daily Chem, Mg, Phos, replace electrolytes > Appreciate Nephro recs > Cont NS 30 cc/kg > Strict I&Os, PRN bladder scan, [place] if needed Acute kidney injury 11/23/2024 Assessment & Plan (11/29/2024 3:43 PM CDT): Improving. Srm Cr: 4.7 on admission date (a >=0.3 mg/dL increment from normal baseline). Etiology of CARLOTTA most likely accounted for by prerenal azotemia and/or acute tubular necrosis (ATN) occurring in the setting of hypovolemia and severe sepsis. No sonographic evidence of obstructive uropathy. He has no known history of CKD. Past 24 hrs: Srm Cr: 1.57 (decreased) Plan: Continue to measure urine output. Obtain BMP at least daily to monitor srm Cr.. No indications for STRAIGHTENER AND ALIGNER at this time. Minimize/avoid use of NSAIDs, radiocontrast dye, and other potentially nephrotoxic agents. Maintain euvolemia and adequate blood pressure (MAP >= 65 mm Hg). S/p IVF Assessment & Plan (11/28/2024 12:51 PM CDT): Improving. Srm Cr: 4.7 on admission date (a >=0.3 mg/dL increment from normal baseline). Etiology of CARL[place]TA most likely accounted for by prerenal azotemia and/or acute tubular necrosis (ATN) occurring in the setting of hypovolemia and severe sepsis. No sonographic evidence of obstructive uropathy. He has no known history of CKD. Past 24 hrs: Srm Cr: 1.65 (decreased); Urine output: unable to assess. Plan: Continue to measure urine output. Obtain BMP at least daily to monitor srm Cr.. No indications for STRAIGHTENER AND ALIGNER at this time. Minimize/avoid use of NSAIDs, radiocontrast dye, and other potentially nephrotoxic agents. Maintain euvolemia and adequate blood pressure (MAP >= 65 mm Hg). S/p IVF Assessment & Plan (11/27/2024 5:03 PM CDT): Improving. Srm Cr: 4.7 on admission date (a >=0.3 mg/dL increment from normal baseline). Etiology of CARL[place]TA most likely accounted for by prerenal azotemia and/or acute tubular necrosis (ATN) occurring in the setting of hypovolemia and severe sepsis. No sonographic evidence of obstructive uropathy. He has no known history of CKD. Past 24 hrs: Srm Cr: 1.7 (decreased); Urine output: unable to assess. Plan: Continue to measure urine output. Obtain BMP at least daily to monitor srm Cr.. No indications for STRAIGHTENER AND ALIGNER at this time. Minimize/avoid use of NSAIDs, radiocontrast dye, and other potentially nephrotoxic agents. Maintain euvolemia and adequate blood pressure (MAP >= 65 mm Hg). S/p maintenance IVF. Remains tachy so will trial bolus. Assessment & Plan (11/26/2024 9:27 AM CDT): Improving. Srm Cr: 4.7 on admission date (a >=0.3 mg/dL increment from normal baseline). Etiology of CAR[place]TA most likely accounted for by prerenal azotemia and/or acute tubular necrosis (ATN) occurring in the setting of hypovolemia and severe sepsis. No sonographic evidence of obstructive uropathy. He has no known history of CKD. Past 24 hrs: Srm Cr: 1.7 (decreased); Urine output: unable to assess. Plan: Continue to measure urine output. Obtain BMP at least daily to monitor srm Cr.. No indications for STRAIGHTENER AND ALIGNER at this time. Minimize/avoid use of NSAIDs, radiocontrast dye, and other potentially nephrotoxic agents. Maintain euvolemia and adequate blood pressure (MAP >= 65 mm Hg). Continue D5-0.9% NaCl 100 mL/hr continuous IV. Assessment & Plan (11/25/2024 10:17 AM CDT): Improving. Srm Cr: 4.7 on admission date (a >=0.3 mg/dL increment from normal baseline). Etiology of CARL[place]TA most likely accounted for by prerenal azotemia and/or acute tubular necrosis (ATN) occurring in the setting of hypovolemia and severe sepsis. No sonographic evidence of obstructive uropathy. He has no known history of CKD. Past 24 hrs: Srm Cr: 2.0 (decreased); Urine output: unable to assess. Plan: Continue to measure urine output. Obtain BMP at least daily to monitor srm Cr.. No indications for STRAIGHTENER AND ALIGNER at this time. Minimize/avoid use of NSAIDs, radiocontrast dye, and other potentially nephrotoxic agents. Maintain euvolemia and adequate blood pressure (MAP >= 65 mm Hg). Continue D5-0.9% NaCl 100 mL/hr continuous IV. Assessment & Plan (11/24/2024 9:48 AM CDT): Improving. Srm Cr: 4.7 on admission date (a >=0.3 mg/dL increment from normal baseline). Etiology of CAR[place]TA most likely accounted for by prerenal azotemia and/or acute tubular necrosis (ATN) occurring in the setting of hypovolemia and severe sepsis. No sonographic evidence of obstructive uropathy. He has no known history of CKD. Past 24 hrs: Srm Cr: 3.8 (decreased); Urine output: unable to assess. Plan: Continue to measure urine output. Obtain BMP at least daily to monitor srm Cr.. No indications for STRAIGHTENER AND ALIGNER at this time. Minimize/avoid use of NSAIDs, radiocontrast dye, and other potentially nephrotoxic agents. Maintain euvolemia and adequate blood pressure (MAP >= 65 mm Hg). Continue D5-0.9% NaCl 100 mL/hr continuous IV. Assessment & Plan (11/23/2024 9:24 PM CDT): - CARLOTTA with Cr to 4; unclear b/l but no known hx of CKD - Renal U/S unremarkable, low c/f UTI - Nephrology following - Strict I&Os - Hold Metformin, Zestril, Jardiance for now > Daily Chem, Mg, Phos, replace electrolytes > Appreciate Nephro recs > Cont NS 30 cc/kg > Strict I&Os, PRN bladder scan, [place] if needed Elevated troponin 11/23/2024 Assessment & Plan (11/29/2024 3:43 PM CDT): Stable. Elevated troponin likely represents type 2 DC (T2MI) secondary to demand ischemia. Renal clearance of troponin reduced in setting of CARLOTTA. Low suspicion of ACS. Plan: Outpatient referral to cardiology to address any future need for ischemic evaluation. Assessment & Plan (11/28/2024 12:51 PM CDT): Stable. Elevated troponin likely represents type 2 DC (T2MI) secondary to demand ischemia. Renal clearance of troponin reduced in setting of CARL[place]TA. Low suspicion of ACS. Plan: Outpatient referral to cardiology to address any future need for ischemic evaluation. Assessment & Plan (11/27/2024 5:03 PM CDT): Stable. Elevated troponin likely represents type 2 DC (T2MI) secondary to demand ischemia. Renal clearance of troponin reduced in setting of CARL[place]TA. Low suspicion of ACS. Plan: Outpatient referral to cardiology to address any future need for ischemic evaluation. Assessment & Plan (11/26/2024 9:27 AM CDT): Stable. Elevated troponin likely represents type 2 DC (T2MI) secondary to demand ischemia. Renal clearance of troponin reduced in setting of [place]TA. Low suspicion of ACS. Plan: Follow up on cardiology recommendations regarding further work-up and management of elevated troponin. Outpatient referral to cardiology to address any future need for ischemic evaluation. Assessment & Plan (11/25/2024 10:17 AM CDT): Stable. Elevated troponin likely represents type 2 DC (T2MI) secondary to demand ischemia. Renal clearance of troponin reduced in setting of CARL[place]TA. Low suspicion of ACS. Plan: Follow up on cardiology recommendations regarding further work-up and management of elevated troponin. Telemetry monitoring. Follow up on pending TTE to assess biventricular systolic and diastolic function; and cardiac valves. Assessment & Plan (11/24/2024 9:48 AM CDT): Stable. Elevated troponin likely represents type 2 DC (T2MI) secondary to demand ischemia. Renal clearance of troponin reduced in setting of CARL[place]TA. Low suspicion of ACS. Plan: Follow up on cardiology recommendations regarding further work-up and management of elevated troponin. Telemetry monitoring. Assessment & Plan (11/23/2024 9:27 PM CDT): - Elevated LA and Troponin - Trop peaked at 1600, LA downtrending - EKG, symptoms c/w demand ischemia > Hold Heparin gtt for now > Replete Electrolytes > Cont IVF > Telemetry > Formal TTE for AM > Trend LA, Troponin Esophagitis 11/23/2024 Assessment & Plan (11/29/2024 3:43 PM CDT): Stable. Clinical findings concerning for dysphagia. No radiographic evidence of esophageal perforation or pneumomediastinum. Plan: S/p Esophagram. SHAVING MACHINE OPERATOR advanced diet to regular 11/26 Continue pantoprazole 40 mg DAILY PO. Assessment & Plan (11/28/2024 12:51 PM CDT): Stable. Clinical findings concerning for dysphagia. No radiographic evidence of esophageal perforation or pneumomediastinum. Plan: S/p Esophagram. SHAVING MACHINE OPERATOR advanced diet to regular 11/26 Continue pantoprazole 40 mg DAILY IV. Assessment & Plan (11/27/2024 5:03 PM CDT): Stable. Clinical findings concerning for dysphagia. No radiographic evidence of esophageal perforation or pneumomediastinum. Plan: S/p Esophagram. SHAVING MACHINE OPERATOR advanced diet to regular 11/26 Continue pantoprazole 40 mg DAILY IV. Assessment & Plan (11/26/2024 9:27 AM CDT): Stable. Clinical findings concerning for dysphagia. No radiographic evidence of esophageal perforation or pneumomediastinum. Plan: Follow up on SHAVING MACHINE OPERATOR recommendations regarding further work-up and management of dysphagia. NPO except for sips with meds pending repeat SHAVING MACHINE OPERATOR evaluation. Continue pantoprazole 40 mg DAILY IV. Assessment & Plan (11/25/2024 8:02 AM CDT): Stable. Clinical findings concerning for dysphagia. No radiographic evidence of esophageal perforation or pneumomediastinum. Plan: Consult SHAVING MACHINE OPERATOR for recommendations regarding further work-up and management of dysphagia. NPO except for sips with meds pending SHAVING MACHINE OPERATOR evaluation. Continue pantoprazole 40 mg DAILY IV. Assessment & Plan (11/24/2024 9:48 AM CDT): Stable. Clinical findings concerning for dysphagia. No radiographic evidence of esophageal perforation or pneumomediastinum. Plan: Consult SHAVING MACHINE OPERATOR for recommendations regarding further work-up and management of dysphagia. NPO except for sips with meds pending SHAVING MACHINE OPERATOR evaluation. Continue pantoprazole 40 mg DAILY IV. Assessment & Plan (11/23/2024 9:24 PM CDT): - Seen on imaging - Low c/f Perforation - Cont PPI Type 2 diabetes mellitus wit hout complication, with long-term current use of insulin 11/23/2024 Assessment & Plan (11/29/2024 3:43 PM CDT): Stable. Long-term glycemic control unknown. DM complications include diabetic nephropathy. Home insulin regimen TDD: 40 units Past 24 hrs: Glycemic control: adequate; no hypoglycemia. TDD: none. Plan: Daily assessment of glycemic control and modification of insulin regimen to maintain serum glucose level 140-180 mg/dL. Obtain capillary blood glucose Q 6 hrs. Insulin regimen. - Basal: insulin glargine 18 units QHS SubQ - Mealtime: insulin aspart 4 units TID (AC) SubQ - Correction factor: insulin aspart 0-12 units scale QID SubQ Assessment & Plan (11/28/2024 12:51 PM CDT): Stable. Long-term glycemic control unknown. DM complications include diabetic nephropathy. Home insulin regimen TDD: 40 units Past 24 hrs: Glycemic control: adequate; no hypoglycemia. TDD: none. Plan: Daily assessment of glycemic control and modification of insulin regimen to maintain serum glucose level 140-180 mg/dL. Obtain capillary blood glucose Q 6 hrs. Insulin regimen. - Basal: insulin glargine 12 units QHS SubQ - Mealtime: insulin aspart 2 units TID (AC) SubQ - Correction factor: insulin aspart 0-12 units scale Q 6 hrs SubQ Assessment & Plan (11/27/2024 5:03 PM CDT): Stable. Long-term glycemic control unknown. DM complications include diabetic nephropathy. Home insulin regimen TDD: 40 units Past 24 hrs: Glycemic control: adequate; no hypoglycemia. TDD: none. Plan: Daily assessment of glycemic control and modification of insulin regimen to maintain serum glucose level 140-180 mg/dL. Obtain capillary blood glucose Q 6 hrs. Insulin regimen. - Basal: insulin glargine 10 units QHS SubQ - Mealtime: None - Correction factor: insulin aspart 0-12 units scale Q 6 hrs SubQ Assessment & Plan (11/26/2024 8:09 AM CDT): Stable. Long-term glycemic control unknown. DM complications include diabetic nephropathy. Home insulin regimen TDD: 40 units Past 24 hrs: Glycemic control: adequate; no hypoglycemia. TDD: none. Plan: Daily assessment of glycemic control and modification of insulin regimen to maintain serum glucose level 140-180 mg/dL. Obtain capillary blood glucose Q 6 hrs. Insulin regimen. - Basal: insulin glargine 10 units QHS SubQ - Mealtime: None - Correction factor: insulin aspart 0-12 units scale Q 6 hrs SubQ Assessment & Plan (11/25/2024 8:02 AM CDT): Stable. Long-term glycemic control unknown. DM complications include diabetic nephropathy. Home insulin regimen TDD: 40 units Past 24 hrs: Glycemic control: adequate; no hypoglycemia. TDD: none. Plan: Daily assessment of glycemic control and modification of insulin regimen to maintain serum glucose level 140-180 mg/dL. Obtain capillary blood glucose Q 6 hrs. Insulin regimen. - Basal: insulin glargine 10 units QHS SubQ - Mealtime: None - Correction factor: insulin aspart 0-12 units scale Q 6 hrs SubQ Assessment & Plan (11/24/2024 9:48 AM CDT): Stable. Long-term glycemic control unknown. DM complications include diabetic nephropathy. Home insulin regimen TDD: 40 units Past 24 hrs: Glycemic control: adequate; no hypoglycemia. TDD: none. Plan: Daily assessment of glycemic control and modification of insulin regimen to maintain serum glucose level 140-180 mg/dL. Obtain capillary blood glucose Q 6 hrs. Insulin regimen. - Basal: insulin glargine 10 units QHS SubQ - Mealtime: None - Correction factor: insulin aspart 0-12 units scale Q 6 hrs SubQ Assessment & Plan (11/23/2024 9:24 PM CDT): - A1c ordered, pending - Home regimen: Glargine 40U nightly - Also on Jardiance 25 daily - BS volatile (50-200 on arrival), no acidosis on blood gas, BHB -ve Plan: > No scheduled insulin while NPO; if increases consider 0.2 U/Kg to start (18-20 U glargine) > SSI > BS checks > IV fluids, replete electrolytes > Will need alternate insulin regimen 2/2 affordability issues Moderate episode of recurrent major depressive d isorder 11/23/2024 Assessment & Plan (11/23/2024 9:24 PM CDT): - Pt takes buspirone, seroquel at home - No active SI/HI - Resume when tolerating PO meds, QT improves Aspiration into lower respiratory tract 11/24/19 Assessment & Plan (11/29/2024 3:43 PM CDT): Improving. Clinical and radiographic consistent with bacterial pneumonia likely secondary to aspiration event. No known risk factors for infection by MDR bacteria. No known colonization by MRSA or P. aeruginosa. Hypotension, elevated lactic acid, [place], and elevated troponin present at time of admission consistent with severe sepsis. Past 24 hrs: qSOFA: 0/3; SIRS: 1/4 (tachycardia). Plan: Cultures negative, MRSA negative Telemetry discontinued Antibiotic therapy. Course duration: plan to treat for 7 days - Continue ceftriaxone 2 g Q 24 hrs IV. EOT 11/29 - Completed azithromycin APAP pharmacotherapy as needed. Expectorant pharmacotherapy as needed. Viscous lidocaine for sore throat, tessalon perles for cough Assessment & Plan (11/28/2024 12:51 PM CDT): Improving. Clinical and radiographic consistent with bacterial pneumonia likely secondary to aspiration event. No known risk factors for infection by MDR bacteria. No known colonization by MRSA or P. aeruginosa. Hypotension, elevated lactic acid, [place], and elevated troponin present at time of admission consistent with severe sepsis. Past 24 hrs: qSOFA: 0/3; SIRS: 1/4 (tachycardia). Plan: Cultures negative, MRSA negative Telemetry discontinued Antibiotic therapy. Course duration: to be determined; minimum 5 days. - Continue ceftriaxone 2 g Q 24 hrs IV. EOT 11/29 - Completed azithromycin APAP pharmacotherapy as needed. Expectorant pharmacotherapy as needed. Viscous lidocaine PRN Assessment & Plan (11/27/2024 5:03 PM CDT): Improving. Clinical and radiographic consistent with bacterial pneumonia likely secondary to aspiration event. No known risk factors for infection by MDR bacteria. No known colonization by MRSA or P. aeruginosa. Hypotension, elevated lactic acid, [place], and elevated troponin present at time of admission consistent with severe sepsis. Past 24 hrs: qSOFA: 0/3; SIRS: 1/4 (tachycardia). Plan: Cultures negative, MRSA negative Telemetry monitoring. Antibiotic therapy. Course duration: to be determined; minimum 5 days. - Continue ceftriaxone 2 g Q 24 hrs IV. Will plan 7 day course of antibiotics, transition to PO at discharge - Completed azithromycin APAP pharmacotherapy as needed. Expectorant pharmacotherapy as needed. Assessment & Plan (11/26/2024 9:27 AM CDT): Improving. Clinical and radiographic consistent with bacterial pneumonia likely secondary to aspiration event. No known risk factors for infection by MDR bacteria. No known colonization by MRSA or P. aeruginosa. Hypotension, elevated lactic acid, [place], and elevated troponin present at time of admission consistent with severe sepsis. Past 24 hrs: qSOFA: 0/3; SIRS: 1/4 (tachycardia). Plan: Follow up on pending blood culture (x 2 sets). Telemetry monitoring. Antibiotic therapy. Course duration: to be determined; minimum 5 days. - Continue ceftriaxone 2 g Q 24 hrs IV. - Continue azithromycin 500 mg Q 24 hrs PO. APAP pharmacotherapy as needed. Expectorant pharmacotherapy as needed. Assessment & Plan (11/25/2024 10:17 AM CDT): Stable. Clinical and radiographic consistent with bacterial pneumonia likely secondary to aspiration event. No known risk factors for infection by MDR bacteria. No known colonization by MRSA or P. aeruginosa. Hypotension, elevated lactic acid, [place], and elevated troponin present at time of admission consistent with severe sepsis. Past 24 hrs: qSOFA: 0/3; SIRS: 2/4 (tachycardia and leukocytosis). Plan: Follow up on pending blood culture (x 2 sets). Follow up on pending procalcitonin level. Telemetry monitoring. Antibiotic therapy. Course duration: to be determined; minimum 5 days. - Continue ceftriaxone 2 g Q 24 hrs IV. - Continue azithromycin 500 mg Q 24 hrs PO. - Discontinue vancomycin (dosing per pharmacy) IV.. APAP pharmacotherapy as needed. Expectorant pharmacotherapy as needed. Assessment & Plan (11/24/2024 9:48 AM CDT): Stable. Clinical and radiographic consistent with bacterial pneumonia likely secondary to aspiration event. No known risk factors for infection by MDR bacteria. No known colonization by MRSA or P. aeruginosa. Hypotension, elevated lactic acid, [place], and elevated troponin present at time of admission consistent with severe sepsis. Past 24 hrs: qSOFA: 1/3 (tachypnea); SIRS: 3/4 (tachycardia, tachypnea, and leukocytosis). Plan: Follow up on pending blood culture (x 2 sets). Obtain procalcitonin level. Obtain MRSA PCR of nares. Telemetry monitoring. Antibiotic therapy. Course duration: to be determined; minimum 5 days. - Continue ceftriaxone 2 g Q 24 hrs IV. - Begin azithromycin 500 mg Q 24 hrs PO. - Continue vancomycin (dosing per pharmacy) IV. Trough goal: 15-20 mg/L. - Serial laboratory monitoring of kidney function required while on vancomycin IV. - Can be discontinued if MRSA PCR negative. APAP pharmacotherapy as needed. Expectorant pharmacotherapy as needed. Discontinue central line. Assessment & Plan (11/23/2024 9:24 PM CDT): - Likely 2/2 aspiration - Chest findings c/f aspiration iso recurrent emesis - PRN 02 - Formal SHAVING MACHINE OPERATOR eval - NPO for now > ADAT Severe sepsis 11/23/2024 Assessment & Plan (11/29/2024 3:43 PM CDT): Improving. Clinical and radiographic consistent with bacterial pneumonia likely secondary to aspiration event. No known risk factors for infection by MDR bacteria. No known colonization by MRSA or P. aeruginosa. Hypotension, elevated lactic acid, [place], and elevated troponin present at time of admission consistent with severe sepsis. Past 24 hrs: qSOFA: 0/3; SIRS: 1/4 (tachycardia). Plan: Cultures negative, MRSA negative Telemetry discontinued Antibiotic therapy. Course duration: plan to treat for 7 days - Continue ceftriaxone 2 g Q 24 hrs IV. EOT 11/29 - Completed azithromycin APAP pharmacotherapy as needed. Expectorant pharmacotherapy as needed. Viscous lidocaine for sore throat, tessalon perles for cough Assessment & Plan (11/28/2024 12:51 PM CDT): Improving. Clinical and radiographic consistent with bacterial pneumonia likely secondary to aspiration event. No known risk factors for infection by MDR bacteria. No known colonization by MRSA or P. aeruginosa. Hypotension, elevated lactic acid, [place], and elevated troponin present at time of admission consistent with severe sepsis. Past 24 hrs: qSOFA: 0/3; SIRS: 1/4 (tachycardia). Plan: Cultures negative, MRSA negative Telemetry discontinued Antibiotic therapy. Course duration: to be determined; minimum 5 days. - Continue ceftriaxone 2 g Q 24 hrs IV. EOT 11/29 - Completed azithromycin APAP pharmacotherapy as needed. Expectorant pharmacotherapy as needed. Viscous lidocaine PRN Assessment & Plan (11/27/2024 5:03 PM CDT): Improving. Clinical and radiographic consistent with bacterial pneumonia likely secondary to aspiration event. No known risk factors for infection by MDR bacteria. No known colonization by MRSA or P. aeruginosa. Hypotension, elevated lactic acid, CARLOTTA, and elevated troponin present at time of admission consistent with severe sepsis. Past 24 hrs: qSOFA: 0/3; SIRS: 1/4 (tachycardia). Plan: Cultures negative, MRSA negative Telemetry monitoring. Antibiotic therapy. Course duration: to be determined; minimum 5 days. - Continue ceftriaxone 2 g Q 24 hrs IV. Will plan 7 day course of antibiotics, transition to PO at discharge - Completed azithromycin APAP pharmacotherapy as needed. Expectorant pharmacotherapy as needed. Assessment & Plan (11/26/2024 9:27 AM CDT): Improving. Clinical and radiographic consistent with bacterial pneumonia likely secondary to aspiration event. No known risk factors for infection by MDR bacteria. No known colonization by MRSA or P. aeruginosa. Hypotension, elevated lactic acid, CARLOTTA, and elevated troponin present at time of admission consistent with severe sepsis. Past 24 hrs: qSOFA: 0/3; SIRS: 1/4 (tachycardia). Plan: Follow up on pending blood culture (x 2 sets). Telemetry monitoring. Antibiotic therapy. Course duration: to be determined; minimum 5 days. - Continue ceftriaxone 2 g Q 24 hrs IV. - Continue azithromycin 500 mg Q 24 hrs PO. APAP pharmacotherapy as needed. Expectorant pharmacotherapy as needed. Assessment & Plan (11/25/2024 10:17 AM CDT): Stable. Clinical and radiographic consistent with bacterial pneumonia likely secondary to aspiration event. No known risk factors for infection by MDR bacteria. No known colonization by MRSA or P. aeruginosa. Hypotension, elevated lactic acid, CARLOTTA, and elevated troponin present at time of admission consistent with severe sepsis. Past 24 hrs: qSOFA: 0/3; SIRS: 2/4 (tachycardia and leukocytosis). Plan: Follow up on pending blood culture (x 2 sets). Follow up on pending procalcitonin level. Telemetry monitoring. Antibiotic therapy. Course duration: to be determined; minimum 5 days. - Continue ceftriaxone 2 g Q 24 hrs IV. - Continue azithromycin 500 mg Q 24 hrs PO. - Discontinue vancomycin (dosing per pharmacy) IV.. APAP pharmacotherapy as needed. Expectorant pharmacotherapy as needed. Assessment & Plan (11/24/2024 9:48 AM CDT): Stable. Clinical and radiographic consistent with bacterial pneumonia likely secondary to aspiration event. No known risk factors for infection by MDR bacteria. No known colonization by MRSA or P. aeruginosa. Hypotension, elevated lactic acid, CARLOTTA, and elevated troponin present at time of admission consistent with severe sepsis. Past 24 hrs: qSOFA: 1/3 (tachypnea); SIRS: 3/4 (tachycardia, tachypnea, and leukocytosis). Plan: Follow up on pending blood culture (x 2 sets). Obtain procalcitonin level. Obtain MRSA PCR of nares. Telemetry monitoring. Antibiotic therapy. Course duration: to be determined; minimum 5 days. - Continue ceftriaxone 2 g Q 24 hrs IV. - Begin azithromycin 500 mg Q 24 hrs PO. - Continue vancomycin (dosing per pharmacy) IV. Trough goal: 15-20 mg/L. - Serial laboratory monitoring of kidney function required while on vancomycin IV. - Can be discontinued if MRSA PCR negative. APAP pharmacotherapy as needed. Expectorant pharmacotherapy as needed. Discontinue central line. 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 Clinical and radiographic consistent with bacterial pneumonia likely secondary to aspiration event. No known risk factors for infection by MDR bacteria. No known colonization by MRSA or P. aeruginosa. Hypotension, elevated lactic acid, CARLOTTA, and elevated troponin present at time of admission consistent with severe sepsis. Past 24 hrs: qSOFA: 0/3; SIRS: 1/4 (tachycardia). Plan: Cultures negative, MRSA negative Telemetry discontinued Antibiotic therapy. Course duration: plan to treat for 7 days - Continue ceftriaxone 2 g Q 24 hrs IV. EOT 11/29 - Completed azithromycin APAP pharmacotherapy as needed. Expectorant pharmacotherapy as needed. Viscous lidocaine for sore throat, tessalon perles for cough Assessment & Plan (11/28/2024 12:51 PM CDT): Improving. Clinical and radiographic consistent with bacterial pneumonia likely secondary to aspiration event. No known risk factors for infection by MDR bacteria. No known colonization by MRSA or P. aeruginosa. Hypotension, elevated lactic acid, CARLOTTA, and elevated troponin present at time of admission consistent with severe sepsis. Past 24 hrs: qSOFA: 0/3; SIRS: 1/4 (tachycardia). Plan: Cultures negative, MRSA negative Telemetry discontinued Antibiotic therapy. Course duration: to be determined; minimum 5 days. - Continue ceftriaxone 2 g Q 24 hrs IV. EOT 11/29 - Completed azithromycin APAP pharmacotherapy as needed. Expectorant pharmacotherapy as needed. Viscous lidocaine PRN Assessment & Plan (11/27/2024 5:03 PM CDT): Improving. Clinical and radiographic consistent with bacterial pneumonia likely secondary to aspiration event. No known risk factors for infection by MDR bacteria. No known colonization by MRSA or P. aeruginosa. Hypotension, elevated lactic acid, CARLOTTA, and elevated troponin present at time of admission consistent with severe sepsis. Past 24 hrs: qSOFA: 0/3; SIRS: 1/4 (tachycardia). Plan: Cultures negative, MRSA negative Telemetry monitoring. Antibiotic therapy. Course duration: to be determined; minimum 5 days. - Continue ceftriaxone 2 g Q 24 hrs IV. Will plan 7 day course of antibiotics, transition to PO at discharge - Completed azithromycin APAP pharmacotherapy as needed. Expectorant pharmacotherapy as needed. Assessment & Plan (11/26/2024 9:27 AM CDT): Improving. Clinical and radiographic consistent with bacterial pneumonia likely secondary to aspiration event. No known risk factors for infection by MDR bacteria. No known colonization by MRSA or P. aeruginosa. Hypotension, elevated lactic acid, CARLOTTA, and elevated troponin present at time of admission consistent with severe sepsis. Past 24 hrs: qSOFA: 0/3; SIRS: 1/4 (tachycardia). Plan: Follow up on pending blood culture (x 2 sets). Telemetry monitoring. Antibiotic therapy. Course duration: to be determined; minimum 5 days. - Continue ceftriaxone 2 g Q 24 hrs IV. - Continue azithromycin 500 mg Q 24 hrs PO. APAP pharmacotherapy as needed. Expectorant pharmacotherapy as needed. Assessment & Plan (11/25/2024 10:17 AM CDT): Stable. Clinical and radiographic consistent with bacterial pneumonia likely secondary to aspiration event. No known risk factors for infection by MDR bacteria. No known colonization by MRSA or P. aeruginosa. Hypotension, elevated lactic acid, CARLOTTA, and elevated troponin present at time of admission consistent with severe sepsis. Past 24 hrs: qSOFA: 0/3; SIRS: 2/4 (tachycardia and leukocytosis). Plan: Follow up on pending blood culture (x 2 sets). Follow up on pending procalcitonin level. Telemetry monitoring. Antibiotic therapy. Course duration: to be determined; minimum 5 days. - Continue ceftriaxone 2 g Q 24 hrs IV. - Continue azithromycin 500 mg Q 24 hrs PO. - Discontinue vancomycin (dosing per pharmacy) IV.. APAP pharmacotherapy as needed. Expectorant pharmacotherapy as needed. Assessment & Plan (11/24/2024 9:48 AM CDT): Stable. Clinical and radiographic consistent with bacterial pneumonia likely secondary to aspiration event. No known risk factors for infection by MDR bacteria. No known colonization by MRSA or P. aeruginosa. Hypotension, elevated lactic acid, CARLOTTA, and elevated troponin present at time of admission consistent with severe sepsis. Past 24 hrs: qSOFA: 1/3 (tachypnea); SIRS: 3/4 (tachycardia, tachypnea, and leukocytosis). Plan: Follow up on pending blood culture (x 2 sets). Obtain procalcitonin level. Obtain MRSA PCR of nares. Telemetry monitoring. Antibiotic therapy. Course duration: to be determined; minimum 5 days. - Continue ceftriaxone 2 g Q 24 hrs IV. - Begin azithromycin 500 mg Q 24 hrs PO. - Continue vancomycin (dosing per pharmacy) IV. Trough goal: 15-20 mg/L. - Serial laboratory monitoring of kidney function required while on vancomycin IV. - Can be discontinued if MRSA PCR negative. APAP pharmacotherapy as needed. Expectorant pharmacotherapy as needed. Discontinue central line. Dysphagia 11/24/2024 11/29/2024 Assessment & Plan (11/29/2024 3:43 PM CDT): Stable. Clinical findings concerning for dysphagia. No radiographic evidence of esophageal perforation or pneumomediastinum. Plan: S/p Esophagram. [facility] advanced diet to regular 11/26 Continue pantoprazole 40 mg DAILY PO. Assessment & Plan (11/28/2024 12:51 PM CDT): Stable. Clinical findings concerning for dysphagia. No radiographic evidence of esophageal perforation or pneumomediastinum. Plan: S/p Esophagram. [facility] advanced diet to regular 11/26 Continue pantoprazole 40 mg DAILY IV. Assessment & Plan (11/27/2024 5:03 PM CDT): Stable. Clinical findings concerning for dysphagia. No radiographic evidence of esophageal perforation or pneumomediastinum. Plan: S/p Esophagram. [facility] advanced diet to regular 11/26 Continue pantoprazole 40 mg DAILY IV. Assessment & Plan (11/26/2024 9:27 AM CDT): Stable. Clinical findings concerning for dysphagia. No radiographic evidence of esophageal perforation or pneumomediastinum. Plan: Follow up on SHAVING MACHINE OPERATOR recommendations regarding further work-up and management of dysphagia. NPO except for sips with meds pending repeat SHAVING MACHINE OPERATOR evaluation. Continue pantoprazole 40 mg DAILY IV. Assessment & Plan (11/25/2024 8:02 AM CDT): Stable. Clinical findings concerning for dysphagia. No radiographic evidence of esophageal perforation or pneumomediastinum. Plan: Consult SHAVING MACHINE OPERATOR for recommendations regarding further work-up and management of dysphagia. NPO except for sips with meds pending SHAVING MACHINE OPERATOR evaluation. Continue pantoprazole 40 mg DAILY IV. Assessment & Plan (11/24/2024 9:48 AM CDT): Stable. Clinical findings concerning for dysphagia. No radiographic evidence of esophageal perforation or pneumomediastinum. Plan: Consult SHAVING MACHINE OPERATOR for recommendations regarding further work-up and management of dysphagia. NPO except for sips with meds pending SHAVING MACHINE OPERATOR evaluation. Continue pantoprazole 40 mg DAILY IV. Hypotension due to hypovolemia 11/23/2024 11/29/2024 Assessment & Plan (11/29/2024 3:43 PM CDT): Resolved. Assessment & Plan (11/28/2024 12:51 PM CDT): Resolved. Assessment & Plan (11/27/2024 5:03 PM CDT): Resolved. Assessment & Plan (11/26/2024 8:09 AM CDT): Resolved. Assessment & Plan (11/25/2024 8:02 AM CDT): Resolved. Assessment & Plan (11/24/2024 9:48 AM CDT): Resolved. Assessment & Plan (11/23/2024 9:27 PM CDT): - Elevated LA and Troponin - Trop peaked at 1600, LA downtrending - EKG, symptoms c/w demand ischemia > Hold Heparin gtt for now > Replete Electrolytes > Cont IVF > Telemetry > Formal TTE for AM > Trend LA, Troponin Lactic acidosis 11/23/2024 11/28/2024 Assessment & Plan (11/28/2024 12:51 PM CDT): Improving. Clinical and radiographic consistent with bacterial pneumonia likely secondary to aspiration event. No known risk factors for infection by MDR bacteria. No known colonization by MRSA or P. aeruginosa. Hypotension, elevated lactic acid, CARLOTTA, and elevated troponin present at time of admission consistent with severe sepsis. Past 24 hrs: qSOFA: 0/3; SIRS: 1/4 (tachycardia). Plan: Cultures negative, MRSA negative Telemetry discontinued Antibiotic therapy. Course duration: to be determined; minimum 5 days. - Continue ceftriaxone 2 g Q 24 hrs IV. EOT 11/29 - Completed azithromycin APAP pharmacotherapy as needed. Expectorant pharmacotherapy as needed. Viscous lidocaine PRN Assessment & Plan (11/27/2024 5:03 PM CDT): Improving. Clinical and radiographic consistent with bacterial pneumonia likely secondary to aspiration event. No known risk factors for infection by MDR bacteria. No known colonization by MRSA or P. aeruginosa. Hypotension, elevated lactic acid, CARLOTTA, and elevated troponin present at time of admission consistent with severe sepsis. Past 24 hrs: qSOFA: 0/3; SIRS: 1/4 (tachycardia). Plan: Cultures negative, MRSA negative Telemetry monitoring. Antibiotic therapy. Course duration: to be determined; minimum 5 days. - Continue ceftriaxone 2 g Q 24 hrs IV. Will plan 7 day course of antibiotics, transition to PO at discharge - Completed azithromycin APAP pharmacotherapy as needed. Expectorant pharmacotherapy as needed. Assessment & Plan (11/26/2024 9:27 AM CDT): Improving. Clinical and radiographic consistent with bacterial pneumonia likely secondary to aspiration event. No known risk factors for infection by MDR bacteria. No known colonization by MRSA or P. aeruginosa. Hypotension, elevated lactic acid, CARLOTTA, and elevated troponin present at time of admission consistent with severe sepsis. Past 24 hrs: qSOFA: 0/3; SIRS: 1/4 (tachycardia). Plan: Follow up on pending blood culture (x 2 sets). Telemetry monitoring. Antibiotic therapy. Course duration: to be determined; minimum 5 days. - Continue ceftriaxone 2 g Q 24 hrs IV. - Continue azithromycin 500 mg Q 24 hrs PO. APAP pharmacotherapy as needed. Expectorant pharmacotherapy as needed. Assessment & Plan (11/25/2024 10:17 AM CDT): Stable. Clinical and radiographic consistent with bacterial pneumonia likely secondary to aspiration event. No known risk factors for infection by MDR bacteria. No known colonization by MRSA or P. aeruginosa. Hypotension, elevated lactic acid, CARLOTTA, and elevated troponin present at time of admission consistent with severe sepsis. Past 24 hrs: qSOFA: 0/3; SIRS: 2/4 (tachycardia and leukocytosis). Plan: Follow up on pending blood culture (x 2 sets). Follow up on pending procalcitonin level. Telemetry monitoring. Antibiotic therapy. Course duration: to be determined; minimum 5 days. - Continue ceftriaxone 2 g Q 24 hrs IV. - Continue azithromycin 500 mg Q 24 hrs PO. - Discontinue vancomycin (dosing per pharmacy) IV.. APAP pharmacotherapy as needed. Expectorant pharmacotherapy as needed. Assessment & Plan (11/24/2024 9:48 AM CDT): Stable. Clinical and radiographic consistent with bacterial pneumonia likely secondary to aspiration event. No known risk factors for infection by MDR bacteria. No known colonization by MRSA or P. aeruginosa. Hypotension, elevated lactic acid, CARLOTTA, and elevated troponin present at time of admission consistent with severe sepsis. Past 24 hrs: qSOFA: 1/3 (tachypnea); SIRS: 3/4 (tachycardia, tachypnea, and leukocytosis). Plan: Follow up on pending blood culture (x 2 sets). Obtain procalcitonin level. Obtain MRSA PCR of nares. Telemetry monitoring. Antibiotic therapy. Course duration: to be determined; minimum 5 days. - Continue ceftriaxone 2 g Q 24 hrs IV. - Begin azithromycin 500 mg Q 24 hrs PO. - Continue vancomycin (dosing per pharmacy) IV. Trough goal: 15-20 mg/L. - Serial laboratory monitoring of kidney function required while on vancomycin IV. - Can be discontinued if MRSA PCR negative. APAP pharmacotherapy as needed. Expectorant pharmacotherapy as needed. Discontinue central line. Assessment & Plan (11/23/2024 9:27 PM CDT): - Elevated LA and Troponin - Trop peaked at 1600, LA downtrending - EKG, symptoms c/w demand ischemia > Hold Heparin gtt for now > Replete Electrolytes > Cont IVF > Telemetry > Formal TTE for AM > Trend LA, Troponin Social History Tobacco Use Types Packs/Day Years Used Date Smoking Tobacco: Former Cigarettes 0 Q uit: 03/16/2016 Smokeless Tobacco: Never Alcohol Use Standard Drinks/Week Comments No 0 (1 standard drink = 0.6 oz pur e alcohol) AUDIT-C Answer Date Recorded Q1: How often do you have a drink containing alc ohol? Monthly or less 11/23/2024 Q2: How many drinks containi ng alcohol do you have on a typical day when you are drinking? 1 or 2 11/23/2024 Q3: How often do you have si x or more drinks on one occasion? Never 11/23/2024 Overall Financial Resource Strain (CARDIA) Answe r Date Recorded How hard is it for you to pa y for the very basics like food, housing, medical care, and heating? Very hard 11/23/2024 [facility] - Occupational Stress Questionnaire Answer Date Recorded Do you feel stress - tense, restless, nervous, or anxious, or unable to sleep at night because your mind is troubled all the time - these days? Very much 11/23/2024 Hunger Vital Sign Answer Date Recorded Within the past 12 months, y ou worried that your food would run out before you got the money to buy more. Often true 11/24/19 25 Within the past 12 months, t he food you bought just didn't last and you didn't have money to get more. Often true 11/23/2024 PRAPARE - Transportation Answer Date Re corded In the past 12 months, has l ack of transportation kept you from medical appointments or from getting medications? Yes 11/06 In the past 12 months, has l ack of transportation kept you from meetings, work, or from getting things needed for daily living? Yes 11/23/2024 Housing Stability Vital Sign Answer Marquis e Recorded In the last 12 months, was t here a time when you were not able to pay the mortgage or rent on time? Yes 11/23/2024 In the past 12 months, how m any times have you moved where you were living? 0 11/23/2024 At any time in the past 12 m [place], were you homeless or living in a nursing home (including now)? No 11/23/2024 Sex and Gender Information Value Date Recorded Sex Assigned at Not on file Legal Sex Male 5:59 PM CDT Gender Identity Not on file Sexual Orientation Not on file Last Filed Vital Signs Vital Sign Reading Time Taken Comments Blood Pressure 158/92 11/30/2024 6:47 AM CDT Pulse 112 11/30/2024 6:47 AM CDT Temperature 37 C (98.6 F) 11/30/2024 6:46 AM CDT Respiratory Rate 18 11/30/2024 6:46 AM CDT Oxygen Saturation 100% 11/30/2024 6:46 AM CDT Inhaled Oxygen Concentration - - Weight 90.7 kg (200 lb) 11/23/2024 11:08 PM CDT Height 182.9 cm (6') 11/23/2024 11:08 PM CDT Body Mass Index 27.12 11/23/2024 11:08 PM CDT Plan of Treatment Health Maintenance Due Date Last Done Comments COLOGUARD (AGES 45-75) - COLON CA SCREENING 1977 COLON MONITORING 1977 COLONOSCOPY - COLON CA SCREENING 1977 CT COLONOGRAPHY - COLON CA SCREENING 1977 Colorectal Cancer Screening 1977 FIT - COLON CA SCREENING 1977 FLEX SIG - COLON CA SCREENING 1977 HIV SCREENING 1992 HEPATITIS C SCREENING 08/06/1995 DTAP/TDAP/TD VACCINES (1 - Tdap) 1996 HEPATITIS B VACCINE (1 of 3 - 19+ 3-dose series) 1996 PNEUMOCOCCAL VACCINE (1 of 2 - PCV) 1996 DIABETES-FOOT EXAM WITH MONOFILAMENT 08/18/2017 DIABETES RETINOPATHY SCREENING 10/10/2018 10/10/2017, 09/28/2017, 08/18/2017, Additional history exists DEPRESSION SCREENING 05/09/2024 DIABETES - URINE PROTEIN SCREENING 05/09/2024 COVID-19 VACCINE (2 - season) 2025 08/16/2020 INFLUENZA VACCINE (#1) 2025 DIABETES-HGB A1C 05/27/2025 11/24/2024 DIABETES-SERUM CREATININE 11/29/20252024, 11/29/2024, 11/27/2024, Additional history exists ZOSTER VACCINE (1 of 2) 08/11/2027 HIB [...] on patient's age to complete this topic Procedures Procedure Name Priority Date/Time Associated Diagnosis Comments RENAL FUNCTION PANEL Routine 11/29/2024 6:52 AM CDT HEMOGLOBIN A1C Routine 11/24/2024 5:27 AM CDT from Last 3 Months or Most Recently Relevant to Health Maintenance Results * (ABNORMAL) RENAL FUNCTION PANEL (11/29/2024 6:52 AM CDT) BUN 6(L) 7 - 26 mg/dL 11/29/2024 7:53 AM [facility] Creatinine 1.57(H) 0.71 - 1.16 mg/dL 11/29/2024 7:53 AM [facility] Sodium 133(L) 136 - 145 mmol/L 11/29/2024 7:53 AM [facility] Potassium 3.2(L) 3.5 - 4.5 mmol/L 11/29/2024 7:53 AM [facility] Chloride 101 98 - 107 mmol/L 11/29/2024 7:53 AM [facility] CO2 22 22 - 29 mmol/L 11/29/2024 7:53 AM [facility] Glucose 343(H) 70 - 99 mg/dL 11/29/2024 7:53 AM [facility] Albumin 3.0(L) 3.4 - 5.0 g/dL 11/29/2024 7:53 AM [facility] Calcium 8.4 8.4 - 10.2 mg/dL 11/29/2024 7:53 AM [facility] Phosphorus 2.1(L) 2.8 - 5.1 mg/dL 11/29/2024 7:53 AM [facility] Anion Gap 10 6 - 16 11/29/2024 7:53 AM [facility] BUN/Creatinine Ratio 4(L) 7 - 23 11/29/2024 7:53 AM [facility] Osmolality Calculated 287 275 - 295 mOsm/kg 11/29/2024 7:53 AM [facility] eGFR by CKD-EPI 54(L) >=90 mL/min/1.7 3 m2 11/29/2024 7:53 AM [facility] Comment:Estimated Glomerular Filtration Rate (eGFR) calculated using the CKD-EPI Creatinine Equation (2020), per the National Kidney Foundation and [place] Society of Nephrology recommendations. Blood BLOOD SPECIMEN / Unknown Lab Venipuncture / Unknown 11/29/2024 6:52 AM CDT 11/29/2024 7:27 AM T us Ahmet Ventura MD LAB - CHEMISTRY ORDERA BLES Final Result [facility] [address] [place] [address], [facility] [phone] * (ABNORMAL) HEMOGLOBIN A1C (11/24/2024 5:27 AM [facility]) Hemoglobin A1c 13.9(H) <=5.6 % 11/24/2024 10:58 AM [facility] Estimated Average Glucose 352 mg/dL 11/24/2024 10:58 AM [facility] Comment: HbA1c Interpretation: Normal : < 5.7% Pre-diabetes: 5.7-6.4% Diabetes: Equal to or greater than 6.5% Test results diagnostic of diabetes should be repeated for confirmation. Treatment target values recommended by ADA and other clinical organizations should be used to evaluate metabolic control in patients. Reference: [place] [employer], Standards of Care in Diabetes -2020 In patients 70 years and older consider HbA1c target range of 7.0-7.5% (Reference: Mitchell Fernandez et al. JAMDA. 2012) The Sebia assay for the measurement of HbA1c is a National Glycohemoglobin Standardization Program (NGSP) certified method. Blood BLOOD SPECIMEN / Unknown Lab Venipuncture / Unknown 11/24/2024 5:27 AM CDT 11/24/2024 6:11 AM CDT us Erwin Perry MD LAB - CHEMISTRY ORDERABLES Paige andrade Result [facility] [address] [place] [address], [facility] [phone] from Last 3 Months or Most Recently Relevant to Health Maintenance Insurance SELF PAY NO INSURANCE Member Subscriber Plan / Payer (Ef fective for All Dates) Name:Dejan Sevilla Member ID:Not on file Relation to Subscriber:Not on file Name:DEJAN SEVILLA Subscriber ID:Not on file (Home) Address: [address] [place] [id number] Payer ID:Not on file Group ID:Not on file Type:Self Pay Address: [facility] * Guarantor: JOYCEDEJAN GOLDMAN Account Type Relation to Patient Date of Phone Billing Address Personal/Family [id number] SELF PAY NO INSURANCE Member Subscriber Plan / Payer (Ef fective for All Dates) Name:Dejan Sevilla W Member ID:Not on file Relation to Subscriber:Not on file Name:DEJAN SEVILLA Subscriber ID:Not on file Address: [address] [place] [address] Payer ID:Not on file Group ID:Not on file Type:Self Pay Address: [place], [place] SELF PAY NO INSURANCE Member Subscriber Plan / Payer (Ef fective for All Dates) Name:Dejan Sevilla W Member ID:Not on file Relation to Subscriber:Not on file Name:DEJAN SEVILLA Subscriber ID:Not on file Address: [address] [place] [phone] Payer ID:Not on file Group ID:Not on file Type:Self Pay Address: [place], [place] SELF PAY NO INSURANCE Member Subscriber Plan / Payer (Ef fective for All Dates) Name:Dejan Sevilla Member ID:Not on file Relation to Subscriber:Not on file Name:DEJAN SEVILLA Subscriber ID:Not on file Address: [address] [place] [phone] Payer ID:Not on file Group ID:Not on file Type:Self Pay Address: [place], [place] Advance Directives * Full Code (Latest Code Status on File) Date Activated Date Inactivated Comments 11/23/2024 9:01 PM 11/30/2024 8:25 PM * Full Code Date Activated Date Inactivated Comments 09/26/2017 4:39 PM 09/27/2017 2:59 PM Care Teams Workforce Development Vice President Relationship Specialty Start Date End Date Katlyn Everett MD [address] [phone] PCP - General 08/17/17
--- OUTSIDE RECORDS SUMMARY | 2025-04-23 20:40 | XMS_ITS | Clinical Summary ---
Author Organization [facility] Address [address] [place] [phone] Phone Care Team Providers Care Inside Meter Tester Name Role Phone Altagracia Mclean Primary Care Provider [phone] Allergies No known active allergies Medications insulin glargine (LANTUS) 100 UNIT/ML injection Inject 40 Units under the skin 1 (one) time each day Active lisinopril-hydroCHL OROthiazide (PRINZIDE) 20-12.5 MG per tablet Take 1 tablet by mouth 1 (one) time each day Active metoprolol tartrate (LOPRESSOR) 50 MG tablet Take 50 mg by mouth in the morning and 50 mg in the evening. Active sertraline (ZOLOFT) 100 MG tablet Take 100 mg by mouth 1 (one) time each day Active simvastatin (ZOCOR) 20 MG tablet Take 20 mg by mouth every night Active omeprazole (PriLOSEC) [address] capsule Take 20 mg by mouth 1 (one) time each day Active busPIRone (BUSPAR) 10 MG tablet Take 20 mg by mouth 1 (one) time each day Active Empagliflozin 25 MG tabletIndications:U ncontrolled diabetes mellitus with renal manifestations (CMS-HCC) Take 1 tablet by mouth 1 (one) time each day 30 tablet 11 5 Active Active Problems Problem Noted Date Diagnosed Date Stage 3a chronic kidney disease 08/16/2019 Essential hypertension 08/16/2019 Uncontrolled diabetes mellitus with renal manife stations 07/15/2017 Resolved Problems Problem Noted Date Diagnosed Date Resolved Date Acid reflux 08/16/2019 07/11/2024 Bipolar disorder 08/16/2019 07/11/2024 Immunizations Immunization Administration Dates Next Due Influenza TIV (IM) 04/29/2021(Deferred: Patient Refused) Social History Tobacco Use Types Packs/Day Years Used Date Smoking Tobacco: Never Smokeless Tobacco: Never Alcohol Use Standard Drinks/Week Comments Never 0 (1 standard drink = 0.6 oz pur e alcohol) Sex and Gender Information Value Date Recorded Sex Assigned at Not on file Legal Sex Male 10:55 AM [facility] Gender Identity Not on file Sexual Orientation Not on file Last Filed Vital Signs Vital Sign Reading Time Taken Comments Blood Pressure 153/103 07/17/2024 11:26 AM CDT Pulse 81 07/17/2024 11:26 AM CDT Temperature 35.8 C (96.4 F) 09/09/2021 10:35 AM CDT Respiratory Rate - - Oxygen Saturation - - Inhaled Oxygen Concentration - - Weight 93.4 kg (206 lb) 07/17/2024 11:26 AM CDT Height 180.3 cm (5' 11) 07/17/2024 11:26 AM CDT Body Mass Index 28.73 07/17/2024 11:26 AM CDT Plan of Treatment Health Maintenance Due Date Last Done Comments Diabetic Foot Exam 08/11/1987 Pneumococcal PPSV23 Highest Risk Adult (1 of 3 - PCV13) 1996 Ophthalmology Exam 08/18/2018 08/18/2017 Influenza Vaccine (#1) 2025 Insurance [place] - [place] INTERFACED INSURANCE Care Teams Inside Meter Tester Relationship Specialty Start Date End Date Altagracia Mclean PA [address] [place] [phone] PCP - General Family Medicine 04/29/21
--- NOTE | 2025-04-23 20:44 | PCRCNOTE ---
ABG delayed due to nursing trying to establish IV on both arms.
[2025-04-23 20:56] LABS: Alveolar/Arterial O2 Gradient 35.5 mmHg; Carboxyhemoglobin 0.8 % THb (0-2.0); Fractional Inspired Oxygen 21 %; HCO3 ABG 5.6 mEq/l (22.0-26.0); Methemoglobin ABG 0.1 %THb (0-1.5); Oxygen Content ABG 17.9 %vol (16.0-22.0); Oxygen Saturation ABG 97.3 % (95.0-100.0); PO2 ABG 100.5 mmHg (80.0-100.0); PO2 FiO2 Ratio Arterial Blood 4.79 %; Reduced Hemoglobin 2.7 %THb (0-5.0)
[2025-04-23 20:58] LABS: Modified Allen's Test Pass; PCO2 ABG 11.5 mmHg (35.0-45.0); Site Drawn RIGHT RADIAL
[2025-04-23 21:14] LABS: Hematocrit 43.3 % (42.0-52.0); Hemoglobin 12.8 g/dL (14.0-18.0); Immature Granulocyte Percent A 2.0 % (0-0.5); Lymphocytes Absolute Auto 0.89 K/mm3 (0.9-3.2); Mean Corpuscular HGB Conc 29.6 g/dl (32-36); Mean Corpuscular Hemoglobin 21.1 pg (26-34); Mean Corpuscular Volume 71.5 fl (80-100); Nucleated Red Blood Cells Absolute Auto 0.000 K/mm3 (0.0-0.012); Nucleated Red Blood Cells Perc 0.0 % (0.0-0.2); Platelet Count Result 621 k/mm3 (150-375); Red Blood Count 6.06 M/mm3 (4.6-6.20); White Blood Count 30.7 K/mm3 (4.5-10.0)
[2025-04-23] MEDS: LACTATED RINGERS 1,000 ML 999 ML IV CONT ×4 (21:19→22:41)
[2025-04-23] MEDS: CEFEPIME 2 GM in SODIUM CHLORIDE 0.9% IV 50 ML 100 ML IVPB (21:20)
[2025-04-23] MEDS: ONDANSETRON INJ 4 MG/2 ML VIAL IV PUSH ×2 (21:20→22:01)
[2025-04-23] MEDS: CLINDAMYCIN 900 MG/D5W 50 ML 900 MG/50 ML PIGGYBACK 50 MG IVPB (21:22)
[2025-04-23 21:24] LABS: Ovalocytes Occasional; Schistocytes None Seen
[2025-04-23 21:26] LABS: INR 1.4; Partial Thromboplastin Time 29.4 Seconds (22.3-36.8); Prothrombin Time 16.9 Seconds (11.1-14.7)
[2025-04-23 21:54] LABS: Influenza A QL RT-PCR Negative (Negative); Influenza B QL RT-PCR Negative (Negative); RSV RNA, RT-PCR Negative (Negative); SARS-CoV-2 RNA PCR Negative (Negative)
[2025-04-23 22:01] LABS: Alanine Aminotransferase 15 U/L (6-50); Albumin Level 4.1 g/dL (3.5-5.1); Alkaline Phosphatase 192 U/L (38-126); Aspartate Amino Transferase 20 U/L (17-59); Bilirubin,Total 0.9 mg/dL (0.2-1.3); Blood Urea Nitrogen 38 mg/dL (9-20); Calcium 10.2 mg/dL (8.4-10.2); Carbon Dioxide < 5 mmol/L (22-30); Chloride 90 mmol/L (98-107); Estimated CRCL calculation 37 ml/min; Estimated Glomerular Filt Rate 29; Glucose 624 mg/dL (65-110); Magnesium 2.6 mg/dL (1.6-2.3); Potassium 4.0 mmol/L (3.4-5.0); Sodium 131 mmol/L (137-145); Total Protein 8.9 g/dL (6.3-8.2)
[2025-04-23 22:06] LABS: Beta-Hydroxybutyrate/Acetoace. 12.90 mmol/L (0.02-0.27)
[2025-04-23 22:24] LABS: Hemoglobin A1C 11.2 % (<5.7)
[2025-04-23] MEDS: POTASSIUM CHLORIDE INJ 40 MEQ in SODIUM CHLORIDE 0.9% IV 500 ML 130 MEQ IVPB (22:37)
[2025-04-23] MEDS: SODIUM CHLORIDE 0.9% IV 1,000 ML 150 ML IV CONT (22:38)
[2025-04-23] MEDS: INSULIN HUMAN REGULAR (*BKC) 100 UNITS in SODIUM CHLORIDE 0.9% IV 99 ML 7.73 UNITS IV CONT (22:39)
[2025-04-23 22:47] VITALS: BP 163/95; PULSE 144; RESP 24; TEMP 36.6; O2SAT 100
--- NOTE | 2025-04-23 22:48 | PC.NURSE ---
RN brought up concern of an upper GI bleed due to coffee ground emesis and blood tinged mucosal membranes. ER aware
[2025-04-23] MEDS: VANCOMYCIN 1,250 MG/NS 250 ML 1,250 MG/250 ML BAG 166.67 MG IVPB (22:56)
[2025-04-23 23:00] LABS: CRP 44.9 mg/dL (<1.0)
[2025-04-23 23:05] VITALS: BMI 22.4
--- NOTE | 2025-04-23 23:17 | WNDPHOTO ---
PHOTO ONLY - See Nursing Notes and/ or assessments for documentation.
--- NOTE | 2025-04-23 23:31 | PM.IMHP2 ---
H&P: HPI History of Present Illness Date/Time: 04/23/25 23:31 Chief Complaint: Hyperglycemia and nausea. Narrative: This is a 49-year-old male patient with hypertension and diabetes type 2. The patient has a history of noncompliance with his diabetic medication. He has been admitted to the hospital for DKA on several current his. He has had several debridements to both of his feet. He is had a toe removed on each foot. The patient is well-known to general surgery for the debridement of bilateral foot wounds and infected diabetic foot ulcers. The patient was feeling nauseated and weak and therefore activated EMS. The patient stated that he has not had any insulin for over week. He stated he is not taking any medications. He endorses that he just forgot. His last admission for DKA was October of this year. The patient stated that he just started having draining each from his right foot approximately 4 days ago. Right foot x-ray was read as there is soft tissue gas adjacent to the 1st metatarsal. There are concerns for osteomyelitis follow-up MRI is recommended. Chest x-ray was read as no acute cardiopulmonary findings. White count is noted to be 30.7. ABGs pH 7.304, pCO2 11.5, PO2 100.5, bicarb 5.6. BUN 37 creatinine 1.5. Estimated GFR 39. His blood sugar on point of care capillary glucose was greater than 500. Glucose on the metabolic panel 529. Lactic was 3.3. beta hydroxybutyrate /acetoacetate was noted to be 12.90. He has 3+ glucose is urine with 4+ ketones. Viral serology negative. Surgery and centrifugal extractor operator has been consulted per ED physician. The patient was started on IV fluids, Zofran, droperidol, insulin drip, cefepime, clindamycin and vancomycin. The patient is being admitted to inpatient ICU date of service of 04/24/2025. Review of Systems Constitutional: Constitutional: Reports as per HPI and Reports no additional constitutional complaints Eyes: Eyes: Reports as per HPI and Reports no additional eye complaints ENT: Reports no additional ear, nose, mouth, and throat complaints and Reports Normal hearing present Cardiovascular: Cardiovascular: Reports no additional cardiovascular complaints Respiratory: Respiratory: Reports as per HPI and Reports no additional respiratory complaints Gastrointestinal: Gastrointestinal: Reports as per HPI and Reports no additional gastrointestinal complaints Musculoskeletal: Musculoskeletal: Reports no additional musculoskeletal complaints Integumentary/Breasts: Skin/Breast: Reports system reviewed and no additional complaints, except as docu Neurologic: Reports no additional neurologic complaints and Reports Normal hearing present Psychiatric: Psychiatric: Reports no additional psychiatric complaints and Reports as per HPI Hematologic/Lymphatic: Hematologic/Lymphatic: Reports no additional hematologic/lymphatic complaints Allergic/Immunologic: Allergic/Immunologic: Reports no additional allergic/immunologic complaints [facility] Past Medical History Medical History (Updated 04/24/25 @ 04:44 by Cecilia Park APRN) DKA (diabetic ketoacidosis) Diastolic dysfunction Echocardiogram 07/2021: Grade 1 diastolic dysfunction, no intracardiac shunt with agitated saline, EF 65-70, no valvular abnormalities, mild concentric increased left ventricular wall thickness Chronic anemia Diabetic gastroparesis Diabetic retinopathy History of GI bleed Secondary to esophagitis noted on EGD in November 2017. History of suicide attempt Chronic kidney disease, stage 3 Baseline creatinine appears to be between 1.8-2 Hypertension History of osteomyelitis Right 5th toe, status post amputation. Bipolar disorder GERD (gastroesophageal reflux disease) Surgical History Surgical History Amputation of toe of left foot 12/09/23 Open amputation left 4th toe Dr. Dumont Status post amputation of toe of right foot Right 5th toe amputation including the distal metatarsal in 2017. Open amputation of right 5th metatarsal in July 2019 for osteomyelitis of right 5th metatarsal stump. Family History Family History Other Adopted Social History Social History (Updated 04/24/25 @ 04:29 by Cecilia Park APRN) Social History: The patient lives with his parents. The patient is from his . He has 3 children, 1 biological daughter and 2 step children. 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 He is a previous smoker, both cigars and cigarettes. He does smoke cannabis. He denies alcohol use. Patient has applied for disability twice and has been denied. Code status Full code. Smoking packs per day: 1 Smoking cigarettes per day: 20.0 Years smoked: 20 Smoking pack-years: 20.00 Smoking status: Former smoker Second hand tobacco smoke exposure: Yes Smoking end date: 10/16/24 Additional smoking assessment comments: Alcohol intake: never Substance use: current Substance use type: marijuana Last use: 04/18/25 Lack of Transportation: No Lack of Food: Never True Current Housing: I Have Housing Concerned About Future Housing: No Difficulty Paying Gas/Electric Bills: No Difficulty Paying for Meds: No Currently Unemployed: No Education: Associate Degree Difficulty w/ Childcare or Family Care: No Gender identity (if verbalized by the patient): Male Spiritual care concerns: No Agree to blood products: Yes Meds Home Medications and Allergies Home Medications ?Medication ?Instructions ?Recorded ?Confirmed ?Type metoprolol tartrate 50 mg tablet 50 mg PO BID 03/21/23 04/23/25 History omeprazole 20 mg capsule,delayed 20 mg PO DAILY 03/21/23 04/23/25 History release simvastatin 20 mg tablet 20 mg PO HS 03/21/23 04/23/25 History empagliflozin 25 mg tablet 25 mg PO DAILY 10/19/24 04/23/25 History (Jardiance) lisinopril 20 1 tablet PO DAILY 10/19/24 04/23/25 History mg-hydrochlorothiazide 12.5 mg tablet sertraline 100 mg tablet 100 mg PO Q24H 10/19/24 04/23/25 History hydroxyzine HCl 50 mg tablet 50 mg PO DAILY 04/23/25 04/23/25 History insulin glargine 100 unit/mL 35 unit subcut QHS 04/23/25 04/23/25 History subcutaneous solution (Lantus U-100 Insulin) Allergies Allergy/AdvReac Type Severity Reaction Status Date / Time bee stings Allergy Unknown Unknown Uncoded 10/24/24 21:13 Vital Signs Vital Signs - 24 hr 04/23/25 20:24 04/23/25 22:47 Temperature 98.2 F 98 F Pulse Rate 124 H 144 H Respiratory Rate 22 H 24 H Blood Pressure 160/97 H 163/95 H Pulse Oximetry 100 100 Oxygen Delivery Room Air Exam Const: General: cooperative, comfortable, no acute distress, well developed, awake, Physically active, average body habitus and well nourished Nutritional Appearance: average body habitus and well nourished Orientation/consciousness: oriented to person, oriented to place, oriented to time and patient oriented x3 Limitations: no limitations HENMT: Head: normal to inspection, No palpable skull fracture present, normocephalic, atraumatic and abrasion Ears: hearing grossly normal bilaterally and external ears normal Eyes: General: appearance normal, both eyes and all related structures Alignment and Position: alignment normal Periorbital: periorbital findings normal Eyelids: eyelids normal Neck: Neck: normal visual inspection, full ROM and no lymphadenopathy Chest: Chest palpation & inspection: normal inspection of the chest Resp: Effort & Inspection: normal respiratory effort Auscultation: clear to auscultation bilaterally Cardio: Palpation: normal PMI Rate: tachycardic Rhythm: regular rhythm Heart sounds: S1 normal heart sound present and S2 normal heart sound present Peripheral pulses: Peripheral pulses 2+ throughout GI: Inspection: normal to inspection Auscultation: normal bowel sounds : General: Yes no CVA tenderness Back/Spine/Pelvis: Back: no CVA tenderness Skin: General skin exam: normal color Lesions: no lesions Neuro: General: oriented to person, oriented to place, oriented to time and patient oriented x3 Cranial nerves: Yes Normal hearing present Cognition (Neuro): normal cognition Speech: normal speech Extrem: General: normal to inspection Right upper extremity: normal to inspection and shoulder/upper arm Left upper extremity: normal to inspection and shoulder/upper arm Left lower extremity: normal to inspection Other: The patient currently has a dressing to the right lower extremity. However I did review the pictures of the right foot. The patient has erythema from the toe to the right mid foot. He has edema from his toes to his heel. A foul smell was noted coming from the right foot. After reviewing the picture of the right foot it was noted that the patient has 2 ulcerated area to the right great toe with eschar tissue. Also eschar tissue noted to the right midfoot. Ulcerated area noted to the 3rd toe on the right foot. Malodorous drainage noted on the dressing. Psych: Appearance: grossly normal Mental Status: mental status grossly normal Speech and movement: Normal speech and movement present Affect: normal affect Attitude: cooperative Thought process: Normal thought process present Thought content: Yes Normal thought content present Results Labs Labs: Short CBC 04/23/25 Range/Units 21:06 WBC 30.7 H (4.5-10.0) K/mm3 Hgb 12.8 L (14.0-18.0) g/dL Hct 43.3 (42.0-52.0) % Plt Count 621 H D (150-375) k/mm3 BMP 04/23/25 21:06 Sodium 131 L Potassium 4.0 Chloride 90 L Carbon Dioxide < 5 L BUN 38 H D Creatinine 2.44 H Glucose 624 H* Calcium 10.2 Liver Function 04/23/25 Range/Units 21:06 Total Bilirubin 0.9 (0.2-1.3) mg/dL AST 20 (17-59) U/L ALT 15 (6-50) U/L Alkaline Phosphatase 192 H (38-126) U/L Albumin 4.1 (3.5-5.1) g/dL Attestation: I personally reviewed all lab results Imaging Foot x-ray: Attestation: I personally reviewed this imaging study Radiologist's impression: ITS Impressions Chest X-Ray 04/23/25 21:32 IMPRESSION: No acute pulmonary findings. Foot X-Ray 04/23/25 21:33 IMPRESSION: There is soft tissue gas adjacent to the first metatarsal. There are concern for osteomyelitis follow-up MRI is recommended. Quality VTE Prophylaxis VTE prophylaxis: pharmacologic ordered Assessment and Plan Assessment and plan (1) DKA (diabetic ketoacidosis): Qualifiers: Diabetes mellitus complication detail: without coma Diabetes mellitus type: type 2 Qualified Code(s): E11.10 - Type 2 diabetes mellitus with ketoacidosis without coma Code(s): E11.10 - Type 2 diabetes mellitus with ketoacidosis without coma Status: Acute Assessment and Plan: -the patient is in ICU and on the DKA protocol. -bedside glucose management every 1 hour. -continue with insulin drip as per protocol and IV fluids as per protocol. -ABGs are consistent with metabolic acidosis. - resume Lantus when the patient is off the insulin drip. -BMP every 4 hours until anion gap is closed. -his initial blood sugar was over 500. -the patient has been noncompliant with his medication. -development educator would greatly be appreciated -anion gap initially 21. -the patient is NPO until anion gap is closed. -PRNs Zofran QTC 462. -consult to dietitian -the centrifugal extractor operator was consulted per ED provider. -hypoglycemic protocol (2) Cellulitis of foot associated with diabetes mellitus: Code(s): E11.628 - Type 2 diabetes mellitus with other skin complications; L03.119 - Cellulitis of unspecified part of limb Status: Acute Assessment and Plan: -please see wound cultures. -surgery had been consulted per ED provider. -the surgery team is familiar with this patient. He has had multiple debridements. He has also had a toe amputated on each foot. -MRI has been ordered to rule out osteomyelitis. -Foot X-Ray 04/23/25 21:33 IMPRESSION: There is soft tissue gas adjacent to the first metatarsal. There are concern for osteomyelitis follow-up MRI is recommended. -continue with vancomycin with pharmacy to adjust/manage, cefepime, and Flagyl as per protocol. -blood cultures and wound cultures are pending -lactic is 3.3 -check daily lactic level. -his white count is noted to be 30.7. -A1c is 11.2. (3) Chronic kidney disease, stage 3: Code(s): N18.3 - Chronic kidney disease, stage 3 (moderate) Status: Chronic Assessment and Plan: -patient's creatinine is now 1.66 with BUN 37. Patient is now at his baseline. (4) Hypertension: Qualifiers: Hypertension type: unspecified Qualified Code(s): I10 - Essential (primary) hypertension Code(s): I10 - Essential (primary) hypertension Status: Acute Assessment and Plan: -p.r.n. hydralazine with parameters -the patient is NPO at this time -resume metoprolol, and lisinopril when the patient is no longer NPO and blood pressure allows. (5) Hyperlipidemia: Code(s): E78.5 - Hyperlipidemia, unspecified Status: Acute Assessment and Plan: -resume simvastatin when patient is longer NPO.
--- NOTE | 2025-04-23 23:35 | ADMGEN ---
This patient, Dejan Sevilla, was admitted to Intensive Care Unit-9. Patient/family oriented to hospital policies and general routines including ID bracelet, bed and alarms, visiting hours, pain management, procedures, bathroom and other care routines, personal items, smoking policy, room service/diet, and visiting hours. Information on how to activate the Rapid Response Team has been discussed. Patient/Family are encouraged to report perceived risks to care and to ask questions if they do not understand what they are told or what they should do.
[2025-04-23 23:38] LABS: MRSA (PCR) NOT DETECTED (NOT DETECTE)
[2025-04-23 23:40] VITALS: PULSE 126; RESP 33; O2SAT 100
[2025-04-23 23:45] VITALS: BP 140/76; PULSE 126; RESP 33; TEMP 36.6; O2SAT 100
[2025-04-24] VITALS (30 sets, daily range): BP systolic 96–172; BP diastolic 55–97; PULSE 80–122; RESP 11–28; TEMP 36.2–37.1; O2SAT 96–100; BMI 22.4
[2025-04-24 00:02] LABS: Add Urine Microscopic? YES; Appearance Urine Clear (Clear); Glucose Urine UA 3+ mg/dL (Negative); Leukocyte Esterase Ur Negative LEU/UL (Negative); Nitrate Urine Negative (Negative); Specific Grav Ur 1.021 (1.001-1.035)
[2025-04-24 00:17] LABS: Blood Urea Nitrogen 37 mg/dL (9-20); Calcium 9.4 mg/dL (8.4-10.2); Carbon Dioxide < 5 mmol/L (22-30); Chloride 98 mmol/L (98-107); Estimated CRCL calculation 48 ml/min; Estimated Glomerular Filt Rate 39; Glucose 529 mg/dL (65-110); Potassium 4.5 mmol/L (3.4-5.0); Sodium 136 mmol/L (137-145)
[2025-04-24] MEDS: KCL 20 MEQ/D5/0.45% SOD CHL 1,000 ML 150 ML IV CONT ×4 (02:51→21:47)
[2025-04-24 03:01] LABS: Anion Gap 21 mmol/L (4-12); Blood Urea Nitrogen 37 mg/dL (9-20); Calcium 9.2 mg/dL (8.4-10.2); Carbon Dioxide 13 mmol/L (22-30); Chloride 105 mmol/L (98-107); Estimated CRCL calculation 53 ml/min; Estimated Glomerular Filt Rate 45; Glucose 190 mg/dL (65-110); Potassium 3.4 mmol/L (3.4-5.0); Sodium 139 mmol/L (137-145)
[2025-04-24] MEDS: metroNIDAZOLE 500 MG/ISO 100ML 500 MG/100 ML BAG 100 MG IVPB ×3 (04:49→22:37)
[2025-04-24] MEDS: ONDANSETRON INJ 4 MG/2 ML VIAL IV PUSH ×2 (04:52→18:23)
[2025-04-24 07:07] LABS: Anion Gap 10 mmol/L (4-12); Blood Urea Nitrogen 38 mg/dL (9-20); Calcium 9.0 mg/dL (8.4-10.2); Carbon Dioxide 22 mmol/L (22-30); Chloride 106 mmol/L (98-107); Estimated CRCL calculation 54 ml/min; Estimated Glomerular Filt Rate 46; Glucose 203 mg/dL (65-110); Potassium 4.3 mmol/L (3.4-5.0); Sodium 138 mmol/L (137-145)
[2025-04-24 08:24] LABS: Hematocrit 33.4 % (42.0-52.0); Hemoglobin 10.5 g/dL (14.0-18.0); Mean Corpuscular HGB Conc 31.4 g/dl (32-36); Mean Corpuscular Hemoglobin 21.6 pg (26-34); Mean Corpuscular Volume 68.6 fl (80-100); Platelet Count Result 512 k/mm3 (150-375); Red Blood Count 4.87 M/mm3 (4.6-6.20); White Blood Count 22.2 K/mm3 (4.5-10.0)
[2025-04-24] MEDS: ENOXAPARIN 40 MG/0.4 ML SYRINGE SUB-Q (08:42)
[2025-04-24] MEDS: CEFEPIME 1 GM in SODIUM CHLORIDE 0.9% IV 50 ML 100 ML IVPB ×2 (08:42→20:21)
[2025-04-24] MEDS: LACTATED RINGERS 1,000 ML 999 ML IV CONT (08:42)
--- NOTE | 2025-04-24 09:41 | WPDCNINT2 ---
Assessment and Plan Assessment and plan (1) DKA (diabetic ketoacidosis): Code(s): E11.10 - Type 2 diabetes mellitus with ketoacidosis without coma Status: Acute Assessment and Plan: 04/23: Patient presented the ED with hyperglycemia, blood sugars of 621, CO2 < 5, elevated beta hydroxybutyrate. Diagnosed with DKA in the ER, was given 4 L IV fluid bolus, started on insulin drip per DKA protocol and transferred to the ICU -patient remains on insulin infusion along with the fluids per DKA protocol -I giving 1 L IV fluid bolus this morning -will keep patient on insulin infusion since he is going for surgery today -hemoglobin A1c of 11.2, this admission -dietitian and development educator have been consulted (2) Sepsis: Code(s): A41.9 - Sepsis, unspecified organism Status: Acute Assessment and Plan: Patient presented with fall smelling necrotic ulcer on the plantar aspect of his right big toe with purulent drainage. WBC 30.7 on admission, patient was given 1 dose of clindamycin -started overnight on vancomycin, cefepime and Flagyl (04/23) -will discontinue vancomycin add linezolid (04/24) for necrotizing fasciitis -04/23: blood and wound cultures have been obtained and pending -discussed with surgery team, patient be taken for surgery today -continue insulin infusion for now (3) Necrotizing fasciitis: Code(s): M72.6 - Necrotizing fasciitis Status: Acute Assessment and Plan: Necrotizing fasciitis likely of the right great toe, extending over 1st and 2nd metatarsal on the right foot. X-ray of the foot showed soft tissue gas concerning for necrotizing fasciitis -antibiotics as above -patient to the OR sometime today (4) Acute kidney injury superimposed on chronic kidney disease: Code(s): N17.9 - Acute kidney failure, unspecified; N18.9 - Chronic kidney disease, unspecified Status: Acute Assessment and Plan: Acute on chronic renal failure, creatinine was 2.44 on admission (baseline 1.40-1.90) -patient adequately fluid-resuscitated -urine output has been adequate -creatinine trending down -continue to monitor urine output, renal function electrolytes Plan DVT prophylaxis: Lovenox Stress ulcer prophylaxis: Not indicated Nutrition: NPO for now Code Status: Full code Critical Care Time Spent: 46 minutes Discussed with patient updated his condition and plan of care. He has been talking to surgeons and is aware that he will be taken for surgery today Due to a high probability of clinically significant, life threatening deterioration, the patient required my highest level of preparedness to intervene emergently and I personally spent this critical care time directly and personally managing the patient. This critical care time included obtaining a history; examining the patient; pulse oximetry; ordering and review of studies; arranging urgent treatment with development of a management plan; evaluation of patient's response to treatment; frequent reassessment; and discussions with other providers. It was exclusive of separately billable procedures and treating other patients and teaching time. Please see Assessment and Plan section and the rest of the note for further information on patient assessment and treatment This dictation may have been done utilizing a voice recognition system. Attempts have been made to correct errors. However, there may be uncorrected grammatical, spelling, and recognitions errors present. Bioinformatician Consult Note Consult date: 04/24/25 Reason for consult: Hyperglycemia, generalized weakness, nausea, infected foot ulcers along with foot pain, shortness of breath, diabetic ketoacidosis HPI: Dejan Sevilla is a 49 year old male with past medical history of diabetes mellitus, diabetic gastroparesis, diabetic retinopathy, diastolic dysfunction, chronic kidney disease stage 3, essential hypertension, history of osteomyelitis status post amputation on both feet, bipolar disorder, GERD presented the ED on 04/23/2025 with complaints of generalized weakness, hyperglycemia, nausea, infected foot ulcers along with foot pain. He also had some shortness of breath/Kussmaul breathing. In the ER patient was found to have a blood sugar of 624, CO2 < 5, pain hydroxybutyrate of 12.90. WBC count of 30.7 with neutrophilic predominance, hemoglobin 12.8, platelets 621. Sodium 131, potassium 4.0, this BUN 38, creatinine 2.44. INR of 1.4. Lactic acid of 2.6, C-reactive protein of 44.9. Influenza, RSV and SARS-CoV-2 PCR were negative Chest x-ray with no acute cardiopulmonary disease Right foot x-ray showed soft tissue gas adjacent to the 1st metatarsal, concerning for osteomyelitis. Patient was given a dose of clindamycin in the ED, patient was then started on cefepime Flagyl and vancomycin by the hospitalist Patient was transferred to the ICU for further management Patient seen and examined the ICU, remains on insulin infusion, anion gap has closed, CO2 is 22 this morning. Patient is awake, alert, oriented, states he intermittently takes his insulin, has been pretty noncompliant otherwise. Right foot ulcer on the ball of his right big toe, purulent drainage, foul smelling. Denies any shortness of breath, chest pain, abdominal pain, nausea vomiting at this time. Tachycardia has improved, patient is afebrile and hemodynamically stable Review of Systems Review of Systems: All systems reviewed & are unremarkable except as noted in HPI and below [facility] Past Medical History Medical History DKA (diabetic ketoacidosis) Diastolic dysfunction Echocardiogram 07/2021: Grade 1 diastolic dysfunction, no intracardiac shunt with agitated saline, EF 65-70, no valvular abnormalities, mild concentric increased left ventricular wall thickness Chronic anemia Diabetic gastroparesis Diabetic retinopathy History of GI bleed Secondary to esophagitis noted on EGD in November 2017. History of suicide attempt Chronic kidney disease, stage 3 Baseline creatinine appears to be between 1.8-2 Hypertension History of osteomyelitis Right 5th toe, status post amputation. Bipolar disorder GERD (gastroesophageal reflux disease) Surgical History Surgical History Amputation of toe of left foot 12/09/23 Open amputation left 4th toe Dr. Dumont Status post amputation of toe of right foot Right 5th toe amputation including the distal metatarsal in 2017. Open amputation of right 5th metatarsal in July 2019 for osteomyelitis of right 5th metatarsal stump. Family History Family History Other Adopted Social History Social History Social History: The patient lives with his parents. The patient is from his . He has 3 children, 1 biological daughter and 2 step children. 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 He is a previous smoker, both cigars and cigarettes. He does smoke cannabis. He denies alcohol use. Patient has applied for disability twice and has been denied. Code status Full code. Smoking packs per day: 1 Smoking cigarettes per day: 20.0 Years smoked: 20 Smoking pack-years: 20.00 Smoking status: Former smoker Second hand tobacco smoke exposure: Yes Smoking end date: 10/16/24 Additional smoking assessment comments: Alcohol intake: never Substance use: current Substance use type: marijuana Last use: 04/18/25 Lack of Transportation: No Lack of Food: Never True Current Housing: I Have Housing Concerned About Future Housing: No Difficulty Paying Gas/Electric Bills: No Difficulty Paying for Meds: No Currently Unemployed: No Education: Associate Degree Difficulty w/ Childcare or Family Care: No Gender identity (if verbalized by the patient): Male Spiritual care concerns: No Agree to blood products: Yes Meds Home Medications and Allergies Home Medications ?Medication ?Instructions ?Recorded ?Confirmed ?Type metoprolol tartrate 50 mg tablet 50 mg PO BID 03/21/23 04/23/25 History omeprazole 20 mg capsule,delayed 20 mg PO DAILY 03/21/23 04/23/25 History release simvastatin 20 mg tablet 20 mg PO HS 03/21/23 04/23/25 History empagliflozin 25 mg tablet 25 mg PO DAILY 10/19/24 04/23/25 History (Jardiance) lisinopril 20 1 tablet PO DAILY 10/19/24 04/23/25 History mg-hydrochlorothiazide 12.5 mg tablet sertraline 100 mg tablet 100 mg PO Q24H 10/19/24 04/23/25 History hydroxyzine HCl 50 mg tablet 50 mg PO DAILY 04/23/25 04/23/25 History insulin glargine 100 unit/mL 35 unit subcut QHS 04/23/25 04/23/25 History subcutaneous solution (Lantus U-100 Insulin) Allergies Allergy/AdvReac Type Severity Reaction Status Date / Time bee stings Allergy Unknown Unknown Uncoded 10/24/24 21:13 Vital Signs Vital Signs - 24 hr 04/23/25 20:24 04/23/25 22:47 04/23/25 23:40 Temperature 98.2 F 98 F Pulse Rate 124 H 144 H 126 H Respiratory Rate 22 H 24 H 33 H Blood Pressure 160/97 H 163/95 H Pulse Oximetry 100 100 100 Oxygen Delivery Room Air Room Air 04/23/25 23:45 04/24/25 00:00 04/24/25 00:00 Temperature 97.8 F 97.8 F Pulse Rate 126 H 107 H 122 H Respiratory Rate 33 H 28 H Blood Pressure 140/76 123/80 Pulse Oximetry 100 100 Oxygen Delivery 04/24/25 01:00 04/24/25 02:00 04/24/25 02:00 Temperature Pulse Rate 109 H 104 H 104 H Respiratory Rate 28 H 21 H Blood Pressure 121/76 141/89 H Pulse Oximetry 100 98 Oxygen Delivery 04/24/25 03:00 04/24/25 03:48 04/24/25 04:00 Temperature 98.5 F Pulse Rate 103 H 97 102 H Respiratory Rate 25 H 20 18 Blood Pressure 149/83 H 121/69 Pulse Oximetry 99 99 100 Oxygen Delivery Room Air 04/24/25 04:00 04/24/25 05:00 04/24/25 06:00 Temperature Pulse Rate 96 95 89 Respiratory Rate 27 H Blood Pressure 172/91 H Pulse Oximetry 99 Oxygen Delivery 04/24/25 06:00 04/24/25 07:00 04/24/25 08:00 Temperature Pulse Rate 89 106 H 97 Respiratory Rate 24 H 17 Blood Pressure 124/65 168/97 H Pulse Oximetry 99 99 Oxygen Delivery 04/24/25 08:00 04/24/25 08:00 Temperature 98.8 F Pulse Rate 87 Respiratory Rate 24 H Blood Pressure 134/67 Pulse Oximetry 100 100 Oxygen Delivery Room Air Exam Narrative: General: Pleasant gentleman, in no acute distress HEENT:? Pupils equal and reactive, sclera is clear, moist oral mucous Neck:? Supple Respiratory:? Clear to auscultation bilaterally, no wheeze, adequate air entry Cardiac:? S1-S2 normal, regular rate and rhythm Abdomen:? Soft, nontender, nondistended, normoactive bowel sounds Extremities:? Necrotic ulcer on plantar aspect of the right big toe. Purulent drainage, foul smelling. Dressing in place. The left 5th to with mild edema, callus with the eschar in the center. Neuro:? Patient is awake, alert, oriented, answers to questions appropriately and follows simple commands Skin:? As above Psych:? Normal mentation and affect Results Labs 04/24/25 06:45 04/24/25 06:45 Labs: Short CBC 04/23/25 04/24/25 Range/Units 21:06 06:45 WBC 30.7 H 22.2 H (4.5-10.0) K/mm3 Hgb 12.8 L 10.5 L (14.0-18.0) g/dL Hct 43.3 33.4 L (42.0-52.0) % Plt Count 621 H D 512 H (150-375) k/mm3 BMP 04/23/25 04/23/25 04/24/25 21:06 23:51 02:42 Sodium 131 L 136 L 139 Potassium 4.0 4.5 3.4 Chloride 90 L 98 105 Carbon Dioxide < 5 L < 5 L 13 L BUN 38 H D 37 H 37 H Creatinine 2.44 H 1.85 H 1.66 H Glucose 624 H* 529 H* 190 H Calcium 10.2 9.4 9.2 04/24/25 06:45 Sodium 138 Potassium 4.3 Chloride 106 Carbon Dioxide 22 BUN 38 H Creatinine 1.61 H Glucose 203 H Calcium 9.0 Liver Function 04/23/25 Range/Units 21:06 Total Bilirubin 0.9 (0.2-1.3) mg/dL AST 20 (17-59) U/L ALT 15 (6-50) U/L Alkaline Phosphatase 192 H (38-126) U/L Albumin 4.1 (3.5-5.1) g/dL Urine 04/23/25 Range/Units 23:42 Urine Color Yellow (Yellow) Urine Appearance Clear (Clear) Urine pH 5.0 (5.0-9.0) Ur Specific [place] 1.021 (1.001-1.035) Urine Protein 2+ H (Negative) mg/dL Urine Glucose (UA) 3+ H (Negative) mg/dL Quality VTE Prophylaxis VTE prophylaxis: pharmacologic ordered Hospitalist MIPS Advance Care Plan I have confirmed that the patient's Advanced Care Plan is present, code status is documented, or surrogate decision maker is listed in patient medical record.: Yes Medication Reconciliation I have utilized all available resources to obtain, update and review the patients current medications (includes all prescriptions, OTC, herbals, cannabis, and nutritional supplements).: Yes
--- NOTE | 2025-04-24 09:54 | PM.CNGS ---
Assessment and Plan Assessment and plan (1) Diabetic infection of right foot: Code(s): E11.628 - Type 2 diabetes mellitus with other skin complications; L08.9 - Local infection of the skin and subcutaneous tissue, unspecified Status: Acute Assessment and Plan: Patient presents with a diabetic foot infection with three ulcers that involve the right great toe and the medial aspect of his forefoot over his 1st metatarsal and extending to the plantar surface over to at least the 2nd metatarsal. The clinical appearance of his foot infection and the findings of soft tissue gas on his foot x-ray in the ER are highly concerning for necrotizing fasciitis. Will adjust his IV antibiotics to include coverage for necrotizing fasciitis and antitoxin effects. There is high risk for limb loss and his wounds are extensive involving a large area of his forefoot and great toe. Discussed the case with Dr. Kuo and we will try adding him onto the surgery schedule this afternoon. Will keep him NPO with IV antibiotics. I discussed with the patient that he may require below knee amputation depending on Dr. Kuo's evaluation. (2) Necrotizing fasciitis: Code(s): M72.6 - Necrotizing fasciitis Status: Acute Assessment and Plan: See plan above. (3) Sepsis: Qualifiers: Sepsis acute organ dysfunction status: unspecified Sepsis type: sepsis due to unspecified organism Qualified Code(s): A41.9 - Sepsis, unspecified organism Code(s): A41.9 - Sepsis, unspecified organism Status: Acute Assessment and Plan: Sepsis vs findings r/t DKA. WBC 30k, lactic acid up to 3.3, and tachycardic on admission. Likely secondary to necrotizing right foot infection, osteomyelitis. Proceed to the OR for source control. Blood cultures and foot cultures pending. Continue broad-spectrum IV antibiotics. (4) DKA (diabetic ketoacidosis): Code(s): E11.10 - Type 2 diabetes mellitus with ketoacidosis without coma Status: Acute Assessment and Plan: Presented with DKA and in the ICU on an insulin drip. DKA resolving with anion gap closed and labs improving. Glucose down in the 150-200's. CARLOTTA improved. Discussed with Payroll Services Analyst. (5) Uncontrolled diabetes mellitus: Qualifiers: Diabetes mellitus type: type 2 Glycemic state: with hyperglycemia Qualified Code(s): E11.65 - Type 2 diabetes mellitus with hyperglycemia Status: Chronic Assessment and Plan: History of noncompliance and has been even more noncompliant over the past two months reportedly due to going through a divorce and social issues. Hgb A1C 11.2 and glucose was in the 600's on admission. Discussed again today, which we have discussed in the past, the importance of diabetic control and how this will effect him moving forward. Management per Hospitalist. (6) [id number] kidney injury: Qualifiers: Acute renal failure type: unspecified Chronic kidney disease stage: stage 3 (moderate) Chronic kidney disease stage 3 subtype: stage 3b (GFR 30-44) Qualified Code(s): N17.9 - Acute kidney failure, unspecified; N18.32 - Chronic kidney disease, stage 3b Code(s): N17.9 - Acute kidney failure, unspecified; N18.9 - Chronic kidney disease, unspecified Status: Acute Assessment and Plan: Improving, creatinine almost back to baseline (7) Neuropathy: Code(s): G62.9 - Polyneuropathy, unspecified Status: Acute Assessment and Plan: Chronic diabetic neuropathy (8) History of amputation of right fifth toe: Code(s): Z89.421 - Acquired absence of other right toe(s) Status: Chronic (9) History of amputation of lesser toe of left foot: Code(s): Z89.422 - Acquired absence of other left toe(s) Status: Chronic Plan I have discussed the patient's case, recommendations, and treatment plan with Dr. Kuo. History of Present Illness Consult details Consult date: 04/24/25 Reason for consult: other (Diabetic foot ulcer with osteomyelitis) Requesting physician: Cecilia Park, DAVI Narrative: This is a 49-year-old man who is well known to our service from previous diabetic foot infections and hospitalizations for DKA. He has had multiple debridements in the past, as well as a left fourth toe amputation, and right fifth metatarsal amputation. His most recent admission was in October of 2024 for diabetic foot infection requiring debridement by Dr. Dumont. He was not compliant with follow-up and unclear if he was compliant with dressing or wound care at home. He reports recently going through a divorce and has moved in with his parents. He has not been taking care of himself due to his social issues. He reports being even more non compliant with his medications over the past 2 months and has not taken any insulin over the past week. When asked how he has been taking care of his wounds, he does not give a direct answer. He states that over the past 4 days he has noticed his foot developing redness, swelling, and another wound on the medial aspect of the right foot. He reports subjective fevers and chills at home. Due to his progressive symptoms in his foot, he came into the ED for evaluation. Workup revealed diabetic ketoacidosis, CARLOTTA on CKD, and WBC count was 30,000 with a lactic acid up to 3.3, which has normalized this morning. He was found to have a right diabetic foot infection and had an x-ray of the right foot, which showed soft tissue gas medial to the first metatarsal. Plain films also recommended MRI if concerns for osteomyelitis. He was started on broad-spectrum IV antibiotics and transferred to the ICU for an insulin infusion. His DKA is resolving with his anion gap closed and acidosis resolved. His glucose was 624 when he was admitted and is down into the 200s. Hemoglobin A1c 11.2. Creatinine went from 2.4 down to 1.6 this morning, which is closer to his baseline. I spoke with the check services clerk who was going to stop his insulin drip this morning if he was not potentially getting surgery and is being kept NPO. Our service was consulted for his right diabetic foot infection. He is now seen in ICU. Review of Systems Review of Systems: All systems reviewed & are unremarkable except as noted in HPI and below PMFSH Past Medical History Medical History DKA (diabetic ketoacidosis) Diastolic dysfunction Echocardiogram 07/2021: Grade 1 diastolic dysfunction, no intracardiac shunt with agitated saline, EF 65-70, no valvular abnormalities, mild concentric increased left ventricular wall thickness Chronic anemia Diabetic gastroparesis Diabetic retinopathy History of GI bleed Secondary to esophagitis noted on EGD in November 2017. History of suicide attempt Chronic kidney disease, stage 3 Baseline creatinine appears to be between 1.8-2 Hypertension History of osteomyelitis Right 5th toe, status post amputation. Bipolar disorder GERD (gastroesophageal reflux disease) Surgical History Surgical History Amputation of toe of left foot 12/09/23 Open amputation left 4th toe Dr. Dumont Status post amputation of toe of right foot Right 5th toe amputation including the distal metatarsal in 2018. Open amputation of right 5th metatarsal in July 2019 for osteomyelitis of right 5th metatarsal stump. Family History Family History Other Adopted Social History Social History Social History: The patient lives with his parents. The patient is from his . He has 3 children, 1 biological daughter and 2 step children. 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 He is a previous smoker, both cigars and cigarettes. He does smoke cannabis. He denies alcohol use. Patient has applied for disability twice and has been denied. Code status Full code. Smoking packs per day: 1 Smoking cigarettes per day: 20.0 Years smoked: 20 Smoking pack-years: 20.00 Smoking status: Former smoker Second hand tobacco smoke exposure: Yes Smoking end date: 10/16/24 Additional smoking assessment comments: Alcohol intake: never Substance use: current Substance use type: marijuana Last use: 04/18/25 Lack of Transportation: No Lack of Food: Never True Current Housing: I Have Housing Concerned About Future Housing: No Difficulty Paying Gas/Electric Bills: No Difficulty Paying for Meds: No Currently Unemployed: No Education: Associate Degree Difficulty w/ Childcare or Family Care: No Gender identity (if verbalized by the patient): Male Spiritual care concerns: No Agree to blood products: Yes Meds Home Medications and Allergies Home Medications ?Medication ?Instructions ?Recorded ?Confirmed ?Type metoprolol tartrate 50 mg tablet 50 mg PO BID 03/21/23 04/23/25 History omeprazole 20 mg capsule,delayed 20 mg PO DAILY 03/21/23 04/23/25 History release simvastatin 20 mg tablet 20 mg PO HS 03/21/23 04/23/25 History empagliflozin 25 mg tablet 25 mg PO DAILY 10/19/24 04/23/25 History (Jardiance) lisinopril 20 1 tablet PO DAILY 10/19/24 04/23/25 History mg-hydrochlorothiazide 12.5 mg tablet sertraline 100 mg tablet 100 mg PO Q24H 10/19/24 04/23/25 History hydroxyzine HCl 50 mg tablet 50 mg PO DAILY 04/23/25 04/23/25 History insulin glargine 100 unit/mL 35 unit subcut QHS 04/23/25 04/23/25 History subcutaneous solution (Lantus U-100 Insulin) Allergies Allergy/AdvReac Type Severity Reaction Status Date / Time bee stings Allergy Unknown Unknown Uncoded 10/24/24 21:13 Vital Signs Vital Signs - 24 hr 04/23/25 20:24 04/23/25 22:47 04/23/25 23:40 Temperature 98.2 F 98 F Pulse Rate 124 H 144 H 126 H Respiratory Rate 22 H 24 H 33 H Blood Pressure 160/97 H 163/95 H Pulse Oximetry 100 100 100 Oxygen Delivery Room Air Room Air 04/23/25 23:45 04/24/25 00:00 04/24/25 00:00 Temperature 97.8 F 97.8 F Pulse Rate 126 H 107 H 122 H Respiratory Rate 33 H 28 H Blood Pressure 140/76 123/80 Pulse Oximetry 100 100 Oxygen Delivery 04/24/25 01:00 04/24/25 02:00 04/24/25 02:00 Temperature Pulse Rate 109 H 104 H 104 H Respiratory Rate 28 H 21 H Blood Pressure 121/76 141/89 H Pulse Oximetry 100 98 Oxygen Delivery 04/24/25 03:00 04/24/25 03:48 04/24/25 04:00 Temperature 98.5 F Pulse Rate 103 H 97 102 H Respiratory Rate 25 H 20 18 Blood Pressure 149/83 H 121/69 Pulse Oximetry 99 99 100 Oxygen Delivery Room Air 04/24/25 04:00 04/24/25 05:00 04/24/25 06:00 Temperature Pulse Rate 96 95 89 Respiratory Rate 27 H Blood Pressure 172/91 H Pulse Oximetry 99 Oxygen Delivery 04/24/25 06:00 04/24/25 07:00 04/24/25 08:00 Temperature Pulse Rate 89 106 H 97 Respiratory Rate 24 H 17 Blood Pressure 124/65 168/97 H Pulse Oximetry 99 99 Oxygen Delivery 04/24/25 08:00 04/24/25 08:00 04/24/25 09:00 Temperature 98.8 F 97.1 F L Pulse Rate 87 98 Respiratory Rate 24 H 23 H Blood Pressure 134/67 153/84 H Pulse Oximetry 100 100 100 Oxygen Delivery Room Air Exam Const: General: comfortable and no acute distress Nutritional Appearance: average body habitus Orientation/consciousness: patient oriented x3 HENMT: Head: normocephalic and atraumatic Ears: hearing grossly normal bilaterally Mouth: Yes moist mucous membranes Eyes: General: appearance normal, both eyes and all related structures Pupils: Equal, round and reactive pupils present Neck: Neck: normal visual inspection and full ROM Resp: Effort & Inspection: no respiratory distress Auscultation: clear to auscultation bilaterally Cardio: Rate: regular rate Rhythm: regular rhythm Peripheral pulses: Peripheral pulses 2+ throughout GI: Inspection: non-distended GI Palp: Yes Soft to palpation, No Tenderness to palpation present (GI), No Guarding due to palpation present (GI) and No Rebound tenderness present Auscultation: normal bowel sounds Skin: General skin exam: normal color Neuro: General: moves all extremities and no focal motor deficits Speech: normal speech Motor exam (neuro): 5/5 motor strength present throughout Extrem: General: no calf tenderness Other: LLE - Healed L 4th toe amputation noted. Left 5th toe with very mild erythema and a firm, dry callus with a black center is noted on the lateral foot at the base of the left 5th toe and lateral head of the 5th metatarsal. No drainage and no erythema extending to the forefoot or other toes. Decreased sensation d/t neuropathy. Normal cap refill, full ROM. Strong DP and PT pulses. RLE - Healed R 5th metatarsal amputation. Right great toe is swollen with erythema and a 2 x 2.5 cm necrotic ulcer on the plantar surface of the base of the toe with purulent drainage and probes to bone. There is a second ulcer wrapping around the medial great toe measuring 3 x 3 cm with necrotic tissue and purulent drainage and probes to bone. There is maceration of the skin with a small 0.5 cm darkened area of skin on the lateral aspect of the 2nd toe, but without significant swelling or erythema of the remainder of the toes. There is diffuse edema and erythema of the entire right foot with more focal erythema on the medial aspect of the foot around a soft martinez necrotic ulcer with martinez drainage and an extremely foul odor on the medial foot over the 1st metatarsal and an overall 7x7 cm area involving the ulcer and blistering with dark green/black discoloration of the tissue below the blistered area that extends to the plantar foot over the 1st and 2nd metatarsal. Strong DP and PT pulses and the foot is warm. There is some edema extending up to the right lower leg with no calf tenderness and no Herbert's sign. Psych: Mental Status: mental status grossly normal Attitude: cooperative Insight: Fair insight present (Psych) Judgement: Fair judgement present (Psych) Results Labs 04/24/25 06:45 04/24/25 06:45 Labs: Abnormal lab results 04/23/25 04/23/25 04/23/25 Range/Units 20:30 20:41 21:06 WBC 30.7 H (4.5-10.0) K/mm3 Hgb 12.8 L (14.0-18.0) g/dL Hct (42.0-52.0) % MCV 71.5 L (80-100) fl MCH 21.1 L (26-34) pg MCHC 29.6 L (32-36) g/dl RDW 20.0 H (11.5-14.5) % Plt Count 621 H D (150-375) k/mm3 MPV 10.5 H (7.4-10.4) fl Immature Gran % (Auto) 2.0 H (0-0.5) % Neut % (Auto) 90.2 H (45.5-73.1) % Lymph % (Auto) 2.9 L (18.3-44.2) % Lymph # (Auto) 0.89 L (0.9-3.2) K/mm3 [place] # (Auto) 1.4 H (0.1-0.6) K/mm3 Abs Immat Gran (auto) 0.62 H (0.00-0.031) K/mm3 Absolute Neuts (auto) 27.7 H (1.3-6.7) K/mm3 PT 16.9 H (11.1-14.7) Seconds ABG pH 7.304 L (7.350-7.450) ABG pCO2 11.5 L* (35.0-45.0) mmHg ABG pO2 100.5 H (80.0-100.0) mmHg ABG HCO3 5.6 L (22.0-26.0) mEq/l Sodium 131 L (137-145) mmol/L Chloride 90 L (98-107) mmol/L Carbon Dioxide < 5 L (22-30) mmol/L Anion Gap (4-12) mmol/L BUN 38 H D (9-20) mg/dL Creatinine 2.44 H (0.7-1.3) mg/dL Estimated GFR 29 L (59 - ) Glucose 624 H* (65-110) mg/dL POC Capillary Glucose > 500 H* (65-105) mg/dl Hemoglobin A1c 11.2 H (<5.7) % Lactic Acid 2.6 H (0.7-2.0) mmol/L Phosphorus 5.7 H (2.5-4.5) mg/dL Magnesium 2.6 H (1.6-2.3) mg/dL Alkaline Phosphatase 192 H (38-126) U/L C-Reactive Protein 44.9 H (<1.0) mg/dL Total Protein 8.9 H (6.3-8.2) g/dL Beta-Hydroxybutyrate/Acetoacetate 12.90 H (0.02-0.27) mmol/L Urine Protein (Negative) mg/dL Urine Glucose (UA) (Negative) mg/dL Urine Ketones (Negative) mg/dL Ur Blood (Man) (Negative) 04/23/25 04/23/25 04/23/25 Range/Units 22:33 23:42 23:44 WBC (4.5-10.0) K/mm3 Hgb (14.0-18.0) g/dL Hct (42.0-52.0) % MCV (80-100) fl MCH (26-34) pg MCHC (32-36) g/dl RDW (11.5-14.5) % Plt Count (150-375) k/mm3 MPV (7.4-10.4) fl Immature Gran % (Auto) (0-0.5) % Neut % (Auto) (45.5-73.1) % Lymph % (Auto) (18.3-44.2) % Lymph # (Auto) (0.9-3.2) K/mm3 [place] # (Auto) (0.1-0.6) K/mm3 Abs Immat Gran (auto) (0.00-0.031) K/mm3 Absolute Neuts (auto) (1.3-6.7) K/mm3 PT (11.1-14.7) Seconds ABG pH (7.350-7.450) ABG pCO2 (35.0-45.0) mmHg ABG pO2 (80.0-100.0) mmHg ABG HCO3 (22.0-26.0) mEq/l Sodium (137-145) mmol/L Chloride (98-107) mmol/L Carbon Dioxide (22-30) mmol/L Anion Gap (4-12) mmol/L BUN (9-20) mg/dL Creatinine (0.7-1.3) mg/dL Estimated GFR (59 - ) Glucose (65-110) mg/dL POC Capillary Glucose > 500 H* > 500 H* (65-105) mg/dl Hemoglobin A1c (<5.7) % Lactic Acid (0.7-2.0) mmol/L Phosphorus (2.5-4.5) mg/dL Magnesium (1.6-2.3) mg/dL Alkaline Phosphatase (38-126) U/L C-Reactive Protein (<1.0) mg/dL Total Protein (6.3-8.2) g/dL Beta-Hydroxybutyrate/Acetoacetate (0.02-0.27) mmol/L Urine Protein 2+ H (Negative) mg/dL Urine Glucose (UA) 3+ H (Negative) mg/dL Urine Ketones 4+ H (Negative) mg/dL Ur Blood (Man) 1+ H (Negative) 04/23/25 04/24/25 04/24/25 Range/Units 23:51 00:36 01:37 WBC (4.5-10.0) K/mm3 Hgb (14.0-18.0) g/dL Hct (42.0-52.0) % MCV (80-100) fl MCH (26-34) pg MCHC (32-36) g/dl RDW (11.5-14.5) % Plt Count (150-375) k/mm3 MPV (7.4-10.4) fl Immature Gran % (Auto) (0-0.5) % Neut % (Auto) (45.5-73.1) % Lymph % (Auto) (18.3-44.2) % Lymph # (Auto) (0.9-3.2) K/mm3 [place] # (Auto) (0.1-0.6) K/mm3 Abs Immat Gran (auto) (0.00-0.031) K/mm3 Absolute Neuts (auto) (1.3-6.7) K/mm3 PT (11.1-14.7) Seconds ABG pH (7.350-7.450) ABG pCO2 (35.0-45.0) mmHg ABG pO2 (80.0-100.0) mmHg ABG HCO3 (22.0-26.0) mEq/l Sodium 136 L (137-145) mmol/L Chloride (98-107) mmol/L Carbon Dioxide < 5 L (22-30) mmol/L Anion Gap (4-12) mmol/L BUN 37 H (9-20) mg/dL Creatinine 1.85 H (0.7-1.3) mg/dL Estimated GFR 39 L (59 - ) Glucose 529 H* (65-110) mg/dL POC Capillary Glucose 396 H 329 H (65-105) mg/dl Hemoglobin A1c (<5.7) % Lactic Acid 3.3 H (0.7-2.0) mmol/L Phosphorus (2.5-4.5) mg/dL Magnesium (1.6-2.3) mg/dL Alkaline Phosphatase (38-126) U/L C-Reactive Protein (<1.0) mg/dL Total Protein (6.3-8.2) g/dL Beta-Hydroxybutyrate/Acetoacetate (0.02-0.27) mmol/L Urine Protein (Negative) mg/dL Urine Glucose (UA) (Negative) mg/dL Urine Ketones (Negative) mg/dL Ur Blood (Man) (Negative) 04/24/25 04/24/25 04/24/25 Range/Units 02:42 02:50 03:42 WBC (4.5-10.0) K/mm3 Hgb (14.0-18.0) g/dL Hct (42.0-52.0) % MCV (80-100) fl MCH (26-34) pg MCHC (32-36) g/dl RDW (11.5-14.5) % Plt Count (150-375) k/mm3 MPV (7.4-10.4) fl Immature Gran % (Auto) (0-0.5) % Neut % (Auto) (45.5-73.1) % Lymph % (Auto) (18.3-44.2) % Lymph # (Auto) (0.9-3.2) K/mm3 [place] # (Auto) (0.1-0.6) K/mm3 Abs Immat Gran (auto) (0.00-0.031) K/mm3 Absolute Neuts (auto) (1.3-6.7) K/mm3 PT (11.1-14.7) Seconds ABG pH (7.350-7.450) ABG pCO2 (35.0-45.0) mmHg ABG pO2 (80.0-100.0) mmHg ABG HCO3 (22.0-26.0) mEq/l Sodium (137-145) mmol/L Chloride (98-107) mmol/L Carbon Dioxide 13 L (22-30) mmol/L Anion Gap 21 H (4-12) mmol/L BUN 37 H (9-20) mg/dL Creatinine 1.66 H (0.7-1.3) mg/dL Estimated GFR 45 L (59 - ) Glucose 190 H (65-110) mg/dL POC Capillary Glucose 191 H 149 H (65-105) mg/dl Hemoglobin A1c (<5.7) % Lactic Acid (0.7-2.0) mmol/L Phosphorus (2.5-4.5) mg/dL Magnesium (1.6-2.3) mg/dL Alkaline Phosphatase (38-126) U/L C-Reactive Protein (<1.0) mg/dL Total Protein (6.3-8.2) g/dL Beta-Hydroxybutyrate/Acetoacetate (0.02-0.27) mmol/L Urine Protein (Negative) mg/dL Urine Glucose (UA) (Negative) mg/dL Urine Ketones (Negative) mg/dL Ur Blood (Man) (Negative) 04/24/25 04/24/25 04/24/25 Range/Units 04:44 05:45 06:42 WBC (4.5-10.0) K/mm3 Hgb (14.0-18.0) g/dL Hct (42.0-52.0) % MCV (80-100) fl MCH (26-34) pg MCHC (32-36) g/dl RDW (11.5-14.5) % Plt Count (150-375) k/mm3 MPV (7.4-10.4) fl Immature Gran % (Auto) (0-0.5) % Neut % (Auto) (45.5-73.1) % Lymph % (Auto) (18.3-44.2) % Lymph # (Auto) (0.9-3.2) K/mm3 [place] # (Auto) (0.1-0.6) K/mm3 Abs Immat Gran (auto) (0.00-0.031) K/mm3 Absolute Neuts (auto) (1.3-6.7) K/mm3 PT (11.1-14.7) Seconds ABG pH (7.350-7.450) ABG pCO2 (35.0-45.0) mmHg ABG pO2 (80.0-100.0) mmHg ABG HCO3 (22.0-26.0) mEq/l Sodium (137-145) mmol/L Chloride (98-107) mmol/L Carbon Dioxide (22-30) mmol/L Anion Gap (4-12) mmol/L BUN (9-20) mg/dL Creatinine (0.7-1.3) mg/dL Estimated GFR (59 - ) Glucose (65-110) mg/dL POC Capillary Glucose 156 H 182 H 237 H (65-105) mg/dl Hemoglobin A1c (<5.7) % Lactic Acid (0.7-2.0) mmol/L Phosphorus (2.5-4.5) mg/dL Magnesium (1.6-2.3) mg/dL Alkaline Phosphatase (38-126) U/L C-Reactive Protein (<1.0) mg/dL Total Protein (6.3-8.2) g/dL Beta-Hydroxybutyrate/Acetoacetate (0.02-0.27) mmol/L Urine Protein (Negative) mg/dL Urine Glucose (UA) (Negative) mg/dL Urine Ketones (Negative) mg/dL Ur Blood (Man) (Negative) 04/24/25 04/24/25 04/24/25 Range/Units 06:45 07:41 08:59 WBC 22.2 H (4.5-10.0) K/mm3 Hgb 10.5 L (14.0-18.0) g/dL Hct 33.4 L (42.0-52.0) % MCV 68.6 L (80-100) fl MCH 21.6 L (26-34) pg MCHC 31.4 L (32-36) g/dl RDW 18.9 H (11.5-14.5) % Plt Count 512 H (150-375) k/mm3 MPV (7.4-10.4) fl Immature Gran % (Auto) (0-0.5) % Neut % (Auto) (45.5-73.1) % Lymph % (Auto) (18.3-44.2) % Lymph # (Auto) (0.9-3.2) K/mm3 [place] # (Auto) (0.1-0.6) K/mm3 Abs Immat Gran (auto) (0.00-0.031) K/mm3 Absolute Neuts (auto) (1.3-6.7) K/mm3 PT (11.1-14.7) Seconds ABG pH (7.350-7.450) ABG pCO2 (35.0-45.0) mmHg ABG pO2 (80.0-100.0) mmHg ABG HCO3 (22.0-26.0) mEq/l Sodium (137-145) mmol/L Chloride (98-107) mmol/L Carbon Dioxide (22-30) mmol/L Anion Gap (4-12) mmol/L BUN 38 H (9-20) mg/dL Creatinine 1.61 H (0.7-1.3) mg/dL Estimated GFR 46 L (59 - ) Glucose 203 H (65-110) mg/dL POC Capillary Glucose 213 H 273 H (65-105) mg/dl Hemoglobin A1c (<5.7) % Lactic Acid (0.7-2.0) mmol/L Phosphorus (2.5-4.5) mg/dL Magnesium (1.6-2.3) mg/dL Alkaline Phosphatase (38-126) U/L C-Reactive Protein (<1.0) mg/dL Total Protein (6.3-8.2) g/dL Beta-Hydroxybutyrate/Acetoacetate (0.02-0.27) mmol/L Urine Protein (Negative) mg/dL Urine Glucose (UA) (Negative) mg/dL Urine Ketones (Negative) mg/dL Ur Blood (Man) (Negative) Diabetes panel 04/23/25 04/23/25 04/24/25 Range/Units 21:06 23:51 02:42 Sodium 131 L 136 L 139 (137-145) mmol/L Potassium 4.0 4.5 3.4 (3.4-5.0) mmol/L Chloride 90 L 98 105 (98-107) mmol/L Carbon Dioxide < 5 L < 5 L 13 L (22-30) mmol/L BUN 38 H D 37 H 37 H (9-20) mg/dL Creatinine 2.44 H 1.85 H 1.66 H (0.7-1.3) mg/dL Glucose 624 H* 529 H* 190 H (65-110) mg/dL Hemoglobin A1c 11.2 H (<5.7) % Calcium 10.2 9.4 9.2 (8.4-10.2) mg/dL AST 20 (17-59) U/L ALT 15 (6-50) U/L Alkaline Phosphatase 192 H (38-126) U/L Total Protein 8.9 H (6.3-8.2) g/dL Albumin 4.1 (3.5-5.1) g/dL 04/24/25 Range/Units 06:45 Sodium 138 (137-145) mmol/L Potassium 4.3 (3.4-5.0) mmol/L Chloride 106 (98-107) mmol/L Carbon Dioxide 22 (22-30) mmol/L BUN 38 H (9-20) mg/dL Creatinine 1.61 H (0.7-1.3) mg/dL Glucose 203 H (65-110) mg/dL Hemoglobin A1c (<5.7) % Calcium 9.0 (8.4-10.2) mg/dL AST (17-59) U/L ALT (6-50) U/L Alkaline Phosphatase (38-126) U/L Total Protein (6.3-8.2) g/dL Albumin (3.5-5.1) g/dL Calcium panel 04/23/25 04/23/25 04/24/25 Range/Units 21:06 23:51 02:42 Calcium 10.2 9.4 9.2 (8.4-10.2) mg/dL Phosphorus 5.7 H (2.5-4.5) mg/dL Albumin 4.1 (3.5-5.1) g/dL 04/24/25 Range/Units 06:45 Calcium 9.0 (8.4-10.2) mg/dL Phosphorus (2.5-4.5) mg/dL Albumin (3.5-5.1) g/dL Pituitary panel 04/23/25 04/23/25 04/24/25 Range/Units 21:06 23:51 02:42 Sodium 131 L 136 L 139 (137-145) mmol/L Potassium 4.0 4.5 3.4 (3.4-5.0) mmol/L Chloride 90 L 98 105 (98-107) mmol/L Carbon Dioxide < 5 L < 5 L 13 L (22-30) mmol/L BUN 38 H D 37 H 37 H (9-20) mg/dL Creatinine 2.44 H 1.85 H 1.66 H (0.7-1.3) mg/dL Glucose 624 H* 529 H* 190 H (65-110) mg/dL Calcium 10.2 9.4 9.2 (8.4-10.2) mg/dL 04/24/25 Range/Units 06:45 Sodium 138 (137-145) mmol/L Potassium 4.3 (3.4-5.0) mmol/L Chloride 106 (98-107) mmol/L Carbon Dioxide 22 (22-30) mmol/L BUN 38 H (9-20) mg/dL Creatinine 1.61 H (0.7-1.3) mg/dL Glucose 203 H (65-110) mg/dL Calcium 9.0 (8.4-10.2) mg/dL Adrenal panel 04/23/25 04/23/25 04/24/25 Range/Units 21:06 23:51 02:42 Sodium 131 L 136 L 139 (137-145) mmol/L Potassium 4.0 4.5 3.4 (3.4-5.0) mmol/L Chloride 90 L 98 105 (98-107) mmol/L Carbon Dioxide < 5 L < 5 L 13 L (22-30) mmol/L BUN 38 H D 37 H 37 H (9-20) mg/dL Creatinine 2.44 H 1.85 H 1.66 H (0.7-1.3) mg/dL Glucose 624 H* 529 H* 190 H (65-110) mg/dL Calcium 10.2 9.4 9.2 (8.4-10.2) mg/dL Total Bilirubin 0.9 (0.2-1.3) mg/dL AST 20 (17-59) U/L ALT 15 (6-50) U/L Alkaline Phosphatase 192 H (38-126) U/L Total Protein 8.9 H (6.3-8.2) g/dL Albumin 4.1 (3.5-5.1) g/dL 04/24/25 Range/Units 06:45 Sodium 138 (137-145) mmol/L Potassium 4.3 (3.4-5.0) mmol/L Chloride 106 (98-107) mmol/L Carbon Dioxide 22 (22-30) mmol/L BUN 38 H (9-20) mg/dL Creatinine 1.61 H (0.7-1.3) mg/dL Glucose 203 H (65-110) mg/dL Calcium 9.0 (8.4-10.2) mg/dL Total Bilirubin (0.2-1.3) mg/dL AST (17-59) U/L ALT (6-50) U/L Alkaline Phosphatase (38-126) U/L Total Protein (6.3-8.2) g/dL Albumin (3.5-5.1) g/dL All other labs normal. Imaging Additional studies: ITS Impressions Chest X-Ray 04/23/25 21:32 IMPRESSION: No acute pulmonary findings. Foot X-Ray 04/23/25 21:33 IMPRESSION: There is soft tissue gas adjacent to the first metatarsal. There are concern for osteomyelitis follow-up MRI is recommended.
--- NOTE | 2025-04-24 11:01 | PCFNICU ---
ICU Rounding Note: Pt current nutrition is NPO. Nutrition recommendation: when medically able advance to [facility] diet. Last recorded weight is 75 kg. Bowel Motility: No BM reported. Labs Reviewed: PO4 5.7, Cr 1.61, BUN 38, Glu 203, Hct 33.4, Hgb 10.5, HbA1c 11.2% Meds Noted: Insulin Drip, NS, Flagyl. Skin: multiple toe amputations and debridements. Additional Notes: Patient currently in with DKA. Diet orders: NPO for possible BKA today. Will monitor diet orders and follow with any education needs prior to discharge. Following daily in ICU rounds.
[2025-04-24 11:21] LABS: Anion Gap 6 mmol/L (4-12); Blood Urea Nitrogen 32 mg/dL (9-20); Calcium 8.2 mg/dL (8.4-10.2); Carbon Dioxide 21 mmol/L (22-30); Chloride 106 mmol/L (98-107); Estimated CRCL calculation 72 ml/min; Estimated Glomerular Filt Rate > 60; Glucose 246 mg/dL (65-110); Potassium 3.9 mmol/L (3.4-5.0); Sodium 133 mmol/L (137-145)
--- NOTE | 2025-04-24 13:58 | WPDHPUPDATE1 ---
History and Physical Update Update Date/Time: 04/24/25 13:58 History and Physical has been reviewed, including an updated exam of the patient. There are NO changes in the patient's condition. Risks, benefits, and alternatives have been discussed and questions answered. Patient agrees to proceed with procedure.
[2025-04-24 15:10] LABS: Anion Gap 5 mmol/L (4-12); Blood Urea Nitrogen 28 mg/dL (9-20); Calcium 8.3 mg/dL (8.4-10.2); Carbon Dioxide 25 mmol/L (22-30); Chloride 107 mmol/L (98-107); Estimated CRCL calculation 61 ml/min; Estimated Glomerular Filt Rate 53; Glucose 191 mg/dL (65-110); Potassium 3.1 mmol/L (3.4-5.0); Sodium 137 mmol/L (137-145)
[2025-04-24] MEDS: LACTATED RINGERS 1,000 ML 30 ML IV CONT (16:10)
--- NOTE | 2025-04-24 16:22 | WPDANESEPPF ---
Anes - Initial Pre Proc Eval Procedure: Operation Date: 04/24/25 16:00 Proposed Procedures p Right Forefoot Amputation With Wound Vac Placement - Raul Kuo DO Date/Time: 04/24/25 16:22 Surgeon: Wili Goncalves MD Pre Op Diagnosis: Diabetic ketoacidosis, Diabetic foot infection, Os Patient Data Age: 49 Gender: M Height: 1.83 m Weight: 75 kg Last Vital Signs Temp 36.8 C 04/24/25 14:00 Pulse 82 04/24/25 15:10 Resp 15 04/24/25 15:10 BP 138/85 04/24/25 15:10 Pulse Ox 98 04/24/25 15:10 O2 Del Method Room Air 04/24/25 12:00 Allergies Allergy/AdvReac Type Severity Reaction Status Date / Time bee stings Allergy Unknown Unknown Uncoded 10/24/24 21:13 Home Medications ?Medication ?Instructions ?Recorded ?Confirmed ?Type metoprolol tartrate 50 mg tablet 50 mg PO BID 03/21/23 04/23/25 History omeprazole 20 mg capsule,delayed 20 mg PO DAILY 03/21/23 04/23/25 History release simvastatin 20 mg tablet 20 mg PO HS 03/21/23 04/23/25 History empagliflozin 25 mg tablet 25 mg PO DAILY 10/19/24 04/23/25 History (Jardiance) lisinopril 20 1 tablet PO DAILY 10/19/24 04/23/25 History mg-hydrochlorothiazide 12.5 mg tablet sertraline 100 mg tablet 100 mg PO Q24H 10/19/24 04/23/25 History hydroxyzine HCl 50 mg tablet 50 mg PO DAILY 04/23/25 04/23/25 History insulin glargine 100 unit/mL 35 unit subcut QHS 04/23/25 04/23/25 History subcutaneous solution (Lantus U-100 Insulin) Laboratory Tests 04/23/25 04/23/25 04/23/25 20:30 20:41 21:06 WBC 30.7 H K/mm3 (4.5-10.0) RBC 6.06 M/mm3 (4.6-6.20) Hgb 12.8 L g/dL (14.0-18.0) Hct 43.3 % (42.0-52.0) MCV 71.5 L fl (80-100) MCH 21.1 L pg (26-34) MCHC 29.6 L g/dl (32-36) RDW 20.0 H % (11.5-14.5) Plt Count 621 H D k/mm3 (150-375) MPV 10.5 H fl (7.4-10.4) Immature Gran % (Auto) 2.0 H % (0-0.5) Neut % (Auto) 90.2 H % (45.5-73.1) Lymph % (Auto) 2.9 L % (18.3-44.2) [place] % (Auto) 4.5 % (2.6-8.5) Eos % (Auto) 0.0 % (0-4.4) Baso % (Auto) 0.4 % (0.2-1.2) Lymph # (Auto) 0.89 L K/mm3 (0.9-3.2) [place] # (Auto) 1.4 H K/mm3 (0.1-0.6) Eos # (Auto) 0.0 K/mm3 (0-0.3) Baso # (Auto) 0.1 K/mm3 (0.0-0.1) Abs Immat Gran (auto) 0.62 H K/mm3 (0.00-0.031) Absolute Neuts (auto) 27.7 H K/mm3 (1.3-6.7) Absolute Nucleated RBC 0.000 K/mm3 (0.0-0.012) Band Neutrophils % Not Reportable Nucleated RBC % 0.0 % (0.0-0.2) Platelet Estimate Increased (Adequate) Ovalocytes Occasional Schistocytes None seen PT 16.9 H Seconds (11.1-14.7) INR 1.4 APTT 29.4 Seconds (22.3-36.8) Puncture Site Right radial ABG pH 7.304 L (7.350-7.450) ABG pCO2 11.5 L* mmHg (35.0-45.0) ABG pO2 100.5 H mmHg (80.0-100.0) ABG PO2/FiO2 Ratio 4.79 % ABG HCO3 5.6 L mEq/l (22.0-26.0) ABG O2 Saturation 97.3 % (95.0-100.0) ABG O2 Content 17.9 %vol (16.0-22.0) ABG Base Excess -17.8 mEq/l (+/-2.0) A-a Gradient 35.5 mmHg Oxyhemoglobin 96.4 % THb (90.0-100.0) Carboxyhemoglobin 0.8 % THb (0-2.0) Methemoglobin 0.1 %THb (0-1.5) Reduced Hemoglobin 2.7 %THb (0-5.0) Total Hemoglobin 13.1 g/dL (12.0-18.0) O2 Delivery Device Not Reportable O2 Liters/Min Not Reportable FiO2 21 % Sodium 131 L mmol/L (137-145) Potassium 4.0 mmol/L (3.4-5.0) Chloride 90 L mmol/L (98-107) Carbon Dioxide < 5 L mmol/L (22-30) Anion Gap mmol/L (4-12) BUN 38 H D mg/dL (9-20) Creatinine 2.44 H mg/dL (0.7-1.3) Estim Creat Clear Calc 37 ml/min Estimated GFR 29 L (59 - ) Glucose 624 H* mg/dL (65-110) POC Capillary Glucose > 500 H* mg/dl (65-105) Hemoglobin A1c 11.2 H % (<5.7) Lactic Acid 2.6 H mmol/L (0.7-2.0) Calcium 10.2 mg/dL (8.4-10.2) Phosphorus 5.7 H mg/dL (2.5-4.5) Magnesium 2.6 H mg/dL (1.6-2.3) Total Bilirubin 0.9 mg/dL (0.2-1.3) AST 20 U/L (17-59) ALT 15 U/L (6-50) Alkaline Phosphatase 192 H U/L (38-126) C-Reactive Protein 44.9 H mg/dL (<1.0) Total Protein Albumin Beta-Hydroxybutyrate/Acetoacetate Urine Color Urine Appearance Urine pH Ur Specific [place] Urine Protein Urine Glucose (UA) Urine Ketones Ur Blood (Man) Urine Nitrate Urine Bilirubin Urine Urobilinogen Leukocyte Esterase Rfl Urine RBC Urine WBC Ur Squamous Epith Cells Urine Bacteria Urine Casts Nasal MRSA (PCR) Influenza A (RT-PCR) Influenza B (RT-PCR) RSV (RT-PCR) SARS-CoV-2 RNA (RT-PCR) 04/23/25 04/23/25 04/23/25 21:06 21:14 22:24 WBC RBC Hgb Hct MCV MCH MCHC RDW Plt Count MPV Immature Gran % (Auto) Neut % (Auto) Lymph % (Auto) [place] % (Auto) Eos % (Auto) Baso % (Auto) Lymph # (Auto) [place] # (Auto) Eos # (Auto) Baso # (Auto) Abs Immat Gran (auto) Absolute Neuts (auto) Absolute Nucleated RBC Band Neutrophils % Nucleated RBC % Platelet Estimate Ovalocytes Schistocytes PT INR APTT Puncture Site ABG pH ABG pCO2 ABG pO2 ABG PO2/FiO2 Ratio ABG HCO3 ABG O2 Saturation ABG O2 Content ABG Base Excess A-a Gradient Oxyhemoglobin Carboxyhemoglobin Methemoglobin Reduced Hemoglobin Total Hemoglobin O2 Delivery Device O2 Liters/Min FiO2 Sodium Potassium Chloride Carbon Dioxide Anion Gap BUN Creatinine Estim Creat Clear Calc Estimated GFR Glucose POC Capillary Glucose Hemoglobin A1c Lactic Acid Calcium Phosphorus Magnesium Total Bilirubin AST ALT Alkaline Phosphatase C-Reactive Protein Cancelled Total Protein 8.9 H g/dL (6.3-8.2) Albumin 4.1 g/dL (3.5-5.1) Beta-Hydroxybutyrate/Acetoacetate 12.90 H mmol/L (0.02-0.27) Urine Color Urine Appearance Urine pH Ur Specific [place] Urine Protein Urine Glucose (UA) Urine Ketones Ur Blood (Man) Urine Nitrate Urine Bilirubin Urine Urobilinogen Leukocyte Esterase Rfl Urine RBC Urine WBC Ur Squamous Epith Cells Urine Bacteria Urine Casts Nasal MRSA (PCR) Not detected (NOT DETECTE) Influenza A (RT-PCR) Negative (Negative) Influenza B (RT-PCR) Negative (Negative) RSV (RT-PCR) Negative (Negative) SARS-CoV-2 RNA (RT-PCR) Negative (Negative) 04/23/25 04/23/25 04/23/25 22:33 23:42 23:44 WBC RBC Hgb Hct MCV MCH MCHC RDW Plt Count MPV Immature Gran % (Auto) Neut % (Auto) Lymph % (Auto) [place] % (Auto) Eos % (Auto) Baso % (Auto) Lymph # (Auto) [place] # (Auto) Eos # (Auto) Baso # (Auto) Abs Immat Gran (auto) Absolute Neuts (auto) Absolute Nucleated RBC Band Neutrophils % Nucleated RBC % Platelet Estimate Ovalocytes Schistocytes PT INR APTT Puncture Site ABG pH ABG pCO2 ABG pO2 ABG PO2/FiO2 Ratio ABG HCO3 ABG O2 Saturation ABG O2 Content ABG Base Excess A-a Gradient Oxyhemoglobin Carboxyhemoglobin Methemoglobin Reduced Hemoglobin Total Hemoglobin O2 Delivery Device O2 Liters/Min FiO2 Sodium Potassium Chloride Carbon Dioxide Anion Gap BUN Creatinine Estim Creat Clear Calc Estimated GFR Glucose POC Capillary Glucose > 500 H* mg/dl > 500 H* mg/dl (65-105) (65-105) Hemoglobin A1c Lactic Acid Calcium Phosphorus Magnesium Total Bilirubin AST ALT Alkaline Phosphatase C-Reactive Protein Total Protein Albumin Beta-Hydroxybutyrate/Acetoacetate Urine Color Yellow (Yellow) Urine Appearance Clear (Clear) Urine pH 5.0 (5.0-9.0) Ur Specific [place] 1.021 (1.001-1.035) Urine Protein 2+ H mg/dL (Negative) Urine Glucose (UA) 3+ H mg/dL (Negative) Urine Ketones 4+ H mg/dL (Negative) Ur Blood (Man) 1+ H (Negative) Urine Nitrate Negative (Negative) Urine Bilirubin Negative (Negative) Urine Urobilinogen 0.2 mg/dL (<2.0) Leukocyte Esterase Rfl Negative LARON/UL (Negative) Urine RBC 0-2 /hpf (0-2) Urine WBC 0-5 /hpf (0-3) Ur Squamous Epith Cells None seen /hpf (Few) Urine Bacteria None seen /hpf Urine Casts 3-5 Nasal MRSA (PCR) Influenza A (RT-PCR) Influenza B (RT-PCR) RSV (RT-PCR) SARS-CoV-2 RNA (RT-PCR) 04/23/25 04/24/25 04/24/25 23:51 00:36 01:37 WBC RBC Hgb Hct MCV MCH MCHC RDW Plt Count MPV Immature Gran % (Auto) Neut % (Auto) Lymph % (Auto) [place] % (Auto) Eos % (Auto) Baso % (Auto) Lymph # (Auto) [place] # (Auto) Eos # (Auto) Baso # (Auto) Abs Immat Gran (auto) Absolute Neuts (auto) Absolute Nucleated RBC Band Neutrophils % Nucleated RBC % Platelet Estimate Ovalocytes Schistocytes PT INR APTT Puncture Site ABG pH ABG pCO2 ABG pO2 ABG PO2/FiO2 Ratio ABG HCO3 ABG O2 Saturation ABG O2 Content ABG Base Excess A-a Gradient Oxyhemoglobin Carboxyhemoglobin Methemoglobin Reduced Hemoglobin Total Hemoglobin O2 Delivery Device O2 Liters/Min FiO2 Sodium 136 L mmol/L (137-145) Potassium 4.5 mmol/L (3.4-5.0) Chloride 98 mmol/L (98-107) Carbon Dioxide < 5 L mmol/L (22-30) Anion Gap mmol/L (4-12) BUN 37 H mg/dL (9-20) Creatinine 1.85 H mg/dL (0.7-1.3) Estim Creat Clear Calc 48 ml/min Estimated GFR 39 L (59 - ) Glucose 529 H* mg/dL (65-110) POC Capillary Glucose 396 H mg/dl 329 H mg/dl (65-105) (65-105) Hemoglobin A1c Lactic Acid 3.3 H mmol/L (0.7-2.0) Calcium 9.4 mg/dL (8.4-10.2) Phosphorus Magnesium Total Bilirubin AST ALT Alkaline Phosphatase C-Reactive Protein Total Protein Albumin Beta-Hydroxybutyrate/Acetoacetate Urine Color Urine Appearance Urine pH Ur Specific [place] Urine Protein Urine Glucose (UA) Urine Ketones Ur Blood (Man) Urine Nitrate Urine Bilirubin Urine Urobilinogen Leukocyte Esterase Rfl Urine RBC Urine WBC Ur Squamous Epith Cells Urine Bacteria Urine Casts Nasal MRSA (PCR) Influenza A (RT-PCR) Influenza B (RT-PCR) RSV (RT-PCR) SARS-CoV-2 RNA (RT-PCR) 04/24/25 04/24/25 04/24/25 02:42 02:50 03:42 WBC RBC Hgb Hct MCV MCH MCHC RDW Plt Count MPV Immature Gran % (Auto) Neut % (Auto) Lymph % (Auto) [place] % (Auto) Eos % (Auto) Baso % (Auto) Lymph # (Auto) [place] # (Auto) Eos # (Auto) Baso # (Auto) Abs Immat Gran (auto) Absolute Neuts (auto) Absolute Nucleated RBC Band Neutrophils % Nucleated RBC % Platelet Estimate Ovalocytes Schistocytes PT INR APTT Puncture Site ABG pH ABG pCO2 ABG pO2 ABG PO2/FiO2 Ratio ABG HCO3 ABG O2 Saturation ABG O2 Content ABG Base Excess A-a Gradient Oxyhemoglobin Carboxyhemoglobin Methemoglobin Reduced Hemoglobin Total Hemoglobin O2 Delivery Device O2 Liters/Min FiO2 Sodium 139 mmol/L (137-145) Potassium 3.4 mmol/L (3.4-5.0) Chloride 105 mmol/L (98-107) Carbon Dioxide 13 L mmol/L (22-30) Anion Gap 21 H mmol/L (4-12) BUN 37 H mg/dL (9-20) Creatinine 1.66 H mg/dL (0.7-1.3) Estim Creat Clear Calc 53 ml/min Estimated GFR 45 L (59 - ) Glucose 190 H mg/dL (65-110) POC Capillary Glucose 191 H mg/dl 149 H mg/dl (65-105) (65-105) Hemoglobin A1c Lactic Acid Calcium 9.2 mg/dL (8.4-10.2) Phosphorus Magnesium Total Bilirubin AST ALT Alkaline Phosphatase C-Reactive Protein Total Protein Albumin Beta-Hydroxybutyrate/Acetoacetate Urine Color Urine Appearance Urine pH Ur Specific [place] Urine Protein Urine Glucose (UA) Urine Ketones Ur Blood (Man) Urine Nitrate Urine Bilirubin Urine Urobilinogen Leukocyte Esterase Rfl Urine RBC Urine WBC Ur Squamous Epith Cells Urine Bacteria Urine Casts Nasal MRSA (PCR) Influenza A (RT-PCR) Influenza B (RT-PCR) RSV (RT-PCR) SARS-CoV-2 RNA (RT-PCR) 04/24/25 04/24/25 04/24/25 04:44 05:45 06:42 WBC RBC Hgb Hct MCV MCH MCHC RDW Plt Count MPV Immature Gran % (Auto) Neut % (Auto) Lymph % (Auto) [place] % (Auto) Eos % (Auto) Baso % (Auto) Lymph # (Auto) [place] # (Auto) Eos # (Auto) Baso # (Auto) Abs Immat Gran (auto) Absolute Neuts (auto) Absolute Nucleated RBC Band Neutrophils % Nucleated RBC % Platelet Estimate Ovalocytes Schistocytes PT INR APTT Puncture Site ABG pH ABG pCO2 ABG pO2 ABG PO2/FiO2 Ratio ABG HCO3 ABG O2 Saturation ABG O2 Content ABG Base Excess A-a Gradient Oxyhemoglobin Carboxyhemoglobin Methemoglobin Reduced Hemoglobin Total Hemoglobin O2 Delivery Device O2 Liters/Min FiO2 Sodium Potassium Chloride Carbon Dioxide Anion Gap BUN Creatinine Estim Creat Clear Calc Estimated GFR Glucose POC Capillary Glucose 156 H mg/dl 182 H mg/dl 237 H mg/dl (65-105) (65-105) (65-105) Hemoglobin A1c Lactic Acid Calcium Phosphorus Magnesium Total Bilirubin AST ALT Alkaline Phosphatase C-Reactive Protein Total Protein Albumin Beta-Hydroxybutyrate/Acetoacetate Urine Color Urine Appearance Urine pH Ur Specific [place] Urine Protein Urine Glucose (UA) Urine Ketones Ur Blood (Man) Urine Nitrate Urine Bilirubin Urine Urobilinogen Leukocyte Esterase Rfl Urine RBC Urine WBC Ur Squamous Epith Cells Urine Bacteria Urine Casts Nasal MRSA (PCR) Influenza A (RT-PCR) Influenza B (RT-PCR) RSV (RT-PCR) SARS-CoV-2 RNA (RT-PCR) 04/24/25 04/24/25 04/24/25 06:45 07:41 08:59 WBC 22.2 H K/mm3 (4.5-10.0) RBC 4.87 M/mm3 (4.6-6.20) Hgb 10.5 L g/dL (14.0-18.0) Hct 33.4 L % (42.0-52.0) MCV 68.6 L fl (80-100) MCH 21.6 L pg (26-34) MCHC 31.4 L g/dl (32-36) RDW 18.9 H % (11.5-14.5) Plt Count 512 H k/mm3 (150-375) MPV 10.3 fl (7.4-10.4) Immature Gran % (Auto) Neut % (Auto) Lymph % (Auto) [place] % (Auto) Eos % (Auto) Baso % (Auto) Lymph # (Auto) [place] # (Auto) Eos # (Auto) Baso # (Auto) Abs Immat Gran (auto) Absolute Neuts (auto) Absolute Nucleated RBC Band Neutrophils % Nucleated RBC % Platelet Estimate Ovalocytes Schistocytes PT INR APTT Puncture Site ABG pH ABG pCO2 ABG pO2 ABG PO2/FiO2 Ratio ABG HCO3 ABG O2 Saturation ABG O2 Content ABG Base Excess A-a Gradient Oxyhemoglobin Carboxyhemoglobin Methemoglobin Reduced Hemoglobin Total Hemoglobin O2 Delivery Device O2 Liters/Min FiO2 Sodium 138 mmol/L (137-145) Potassium 4.3 mmol/L (3.4-5.0) Chloride 106 mmol/L (98-107) Carbon Dioxide 22 mmol/L (22-30) Anion Gap 10 mmol/L (4-12) BUN 38 H mg/dL (9-20) Creatinine 1.61 H mg/dL (0.7-1.3) Estim Creat Clear Calc 54 ml/min Estimated GFR 46 L (59 - ) Glucose 203 H mg/dL (65-110) POC Capillary Glucose 213 H mg/dl 273 H mg/dl (65-105) (65-105) Hemoglobin A1c Lactic Acid 1.3 mmol/L (0.7-2.0) Calcium 9.0 mg/dL (8.4-10.2) Phosphorus Magnesium Total Bilirubin AST ALT Alkaline Phosphatase C-Reactive Protein Total Protein Albumin Beta-Hydroxybutyrate/Acetoacetate Urine Color Urine Appearance Urine pH Ur Specific [place] Urine Protein Urine Glucose (UA) Urine Ketones Ur Blood (Man) Urine Nitrate Urine Bilirubin Urine Urobilinogen Leukocyte Esterase Rfl Urine RBC Urine WBC Ur Squamous Epith Cells Urine Bacteria Urine Casts Nasal MRSA (PCR) Influenza A (RT-PCR) Influenza B (RT-PCR) RSV (RT-PCR) SARS-CoV-2 RNA (RT-PCR) 04/24/25 04/24/25 04/24/25 10:08 10:31 10:56 WBC RBC Hgb Hct MCV MCH MCHC RDW Plt Count MPV Immature Gran % (Auto) Neut % (Auto) Lymph % (Auto) [place] % (Auto) Eos % (Auto) Baso % (Auto) Lymph # (Auto) [place] # (Auto) Eos # (Auto) Baso # (Auto) Abs Immat Gran (auto) Absolute Neuts (auto) Absolute Nucleated RBC Band Neutrophils % Nucleated RBC % Platelet Estimate Ovalocytes Schistocytes PT INR APTT Puncture Site ABG pH ABG pCO2 ABG pO2 ABG PO2/FiO2 Ratio ABG HCO3 ABG O2 Saturation ABG O2 Content ABG Base Excess A-a Gradient Oxyhemoglobin Carboxyhemoglobin Methemoglobin Reduced Hemoglobin Total Hemoglobin O2 Delivery Device O2 Liters/Min FiO2 Sodium 133 L mmol/L (137-145) Potassium 3.9 mmol/L (3.4-5.0) Chloride 106 mmol/L (98-107) Carbon Dioxide 21 L mmol/L (22-30) Anion Gap 6 mmol/L (4-12) BUN 32 H mg/dL (9-20) Creatinine 1.20 mg/dL (0.7-1.3) Estim Creat Clear Calc 72 ml/min Estimated GFR > 60 (59 - ) Glucose 246 H mg/dL (65-110) POC Capillary Glucose 266 H mg/dl 293 H mg/dl (65-105) (65-105) Hemoglobin A1c Lactic Acid Calcium 8.2 L mg/dL (8.4-10.2) Phosphorus Magnesium Total Bilirubin AST ALT Alkaline Phosphatase C-Reactive Protein Total Protein Albumin Beta-Hydroxybutyrate/Acetoacetate Urine Color Urine Appearance Urine pH Ur Specific [place] Urine Protein Urine Glucose (UA) Urine Ketones Ur Blood (Man) Urine Nitrate Urine Bilirubin Urine Urobilinogen Leukocyte Esterase Rfl Urine RBC Urine WBC Ur Squamous Epith Cells Urine Bacteria Urine Casts Nasal MRSA (PCR) Influenza A (RT-PCR) Influenza B (RT-PCR) RSV (RT-PCR) SARS-CoV-2 RNA (RT-PCR) 04/24/25 04/24/25 04/24/25 12:16 12:56 14:41 WBC RBC Hgb Hct MCV MCH MCHC RDW Plt Count MPV Immature Gran % (Auto) Neut % (Auto) Lymph % (Auto) [place] % (Auto) Eos % (Auto) Baso % (Auto) Lymph # (Auto) [place] # (Auto) Eos # (Auto) Baso # (Auto) Abs Immat Gran (auto) Absolute Neuts (auto) Absolute Nucleated RBC Band Neutrophils % Nucleated RBC % Platelet Estimate Ovalocytes Schistocytes PT INR APTT Puncture Site ABG pH ABG pCO2 ABG pO2 ABG PO2/FiO2 Ratio ABG HCO3 ABG O2 Saturation ABG O2 Content ABG Base Excess A-a Gradient Oxyhemoglobin Carboxyhemoglobin Methemoglobin Reduced Hemoglobin Total Hemoglobin O2 Delivery Device O2 Liters/Min FiO2 Sodium Potassium Chloride Carbon Dioxide Anion Gap BUN Creatinine Estim Creat Clear Calc Estimated GFR Glucose POC Capillary Glucose 239 H mg/dl 233 H mg/dl 221 H mg/dl (65-105) (65-105) (65-105) Hemoglobin A1c Lactic Acid Calcium Phosphorus Magnesium Total Bilirubin AST ALT Alkaline Phosphatase C-Reactive Protein Total Protein Albumin Beta-Hydroxybutyrate/Acetoacetate Urine Color Urine Appearance Urine pH Ur Specific [place] Urine Protein Urine Glucose (UA) Urine Ketones Ur Blood (Man) Urine Nitrate Urine Bilirubin Urine Urobilinogen Leukocyte Esterase Rfl Urine RBC Urine WBC Ur Squamous Epith Cells Urine Bacteria Urine Casts Nasal MRSA (PCR) Influenza A (RT-PCR) Influenza B (RT-PCR) RSV (RT-PCR) SARS-CoV-2 RNA (RT-PCR) 04/24/25 04/24/25 14:47 16:00 WBC RBC Hgb Hct MCV MCH MCHC RDW Plt Count MPV Immature Gran % (Auto) Neut % (Auto) Lymph % (Auto) [place] % (Auto) Eos % (Auto) Baso % (Auto) Lymph # (Auto) [place] # (Auto) Eos # (Auto) Baso # (Auto) Abs Immat Gran (auto) Absolute Neuts (auto) Absolute Nucleated RBC Band Neutrophils % Nucleated RBC % Platelet Estimate Ovalocytes Schistocytes PT INR APTT Puncture Site ABG pH ABG pCO2 ABG pO2 ABG PO2/FiO2 Ratio ABG HCO3 ABG O2 Saturation ABG O2 Content ABG Base Excess A-a Gradient Oxyhemoglobin Carboxyhemoglobin Methemoglobin Reduced Hemoglobin Total Hemoglobin O2 Delivery Device O2 Liters/Min FiO2 Sodium 137 mmol/L (137-145) Potassium 3.1 L mmol/L (3.4-5.0) Chloride 107 mmol/L (98-107) Carbon Dioxide 25 mmol/L (22-30) Anion Gap 5 mmol/L (4-12) BUN 28 H mg/dL (9-20) Creatinine 1.42 H mg/dL (0.7-1.3) Estim Creat Clear Calc 61 ml/min Estimated GFR 53 L (59 - ) Glucose 191 H mg/dL (65-110) POC Capillary Glucose 207 H mg/dl (65-105) Hemoglobin A1c Lactic Acid Calcium 8.3 L mg/dL (8.4-10.2) Phosphorus Magnesium Total Bilirubin AST ALT Alkaline Phosphatase C-Reactive Protein Total Protein Albumin Beta-Hydroxybutyrate/Acetoacetate Urine Color Urine Appearance Urine pH Ur Specific [place] Urine Protein Urine Glucose (UA) Urine Ketones Ur Blood (Man) Urine Nitrate Urine Bilirubin Urine Urobilinogen Leukocyte Esterase Rfl Urine RBC Urine WBC Ur Squamous Epith Cells Urine Bacteria Urine Casts Nasal MRSA (PCR) Influenza A (RT-PCR) Influenza B (RT-PCR) RSV (RT-PCR) SARS-CoV-2 RNA (RT-PCR) Patient hx anesthesia problems: none Family hx anesthesia problems: none Results Review: All pre-operative results and documents have been reviewed as part of the pre-operative evaluation. [facility] Past Medical History Medical History DKA (diabetic ketoacidosis) Diastolic dysfunction Echocardiogram 07/2021: Grade 1 diastolic dysfunction, no intracardiac shunt with agitated saline, EF 65-70, no valvular abnormalities, mild concentric increased left ventricular wall thickness Chronic anemia Diabetic gastroparesis Diabetic retinopathy History of GI bleed Secondary to esophagitis noted on EGD in November 2017. History of suicide attempt Chronic kidney disease, stage 3 Baseline creatinine appears to be between 1.8-2 Hypertension History of osteomyelitis Right 5th toe, status post amputation. Bipolar disorder GERD (gastroesophageal reflux disease) Surgical History Surgical History Amputation of toe of left foot 12/09/23 Open amputation left 4th toe Dr. Dumont Status post amputation of toe of right foot Right 5th toe amputation including the distal metatarsal in 2017. Open amputation of right 5th metatarsal in July 2019 for osteomyelitis of right 5th metatarsal stump. Family History Family History Other Adopted Social History Social History Social History: The patient lives with his parents. The patient is from his . He has 3 children, 1 biological daughter and 2 step children. 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 He is a previous smoker, both cigars and cigarettes. He does smoke cannabis. He denies alcohol use. Patient has applied for disability twice and has been denied. Code status Full code. Smoking packs per day: 1 Smoking cigarettes per day: 20.0 Years smoked: 20 Smoking pack-years: 20.00 Smoking status: Former smoker Second hand tobacco smoke exposure: Yes Smoking end date: 10/16/24 Additional smoking assessment comments: Alcohol intake: never Substance use: current Substance use type: marijuana Last use: 04/18/25 Lack of Transportation: No Lack of Food: Never True Current Housing: I Have Housing Concerned About Future Housing: No Difficulty Paying Gas/Electric Bills: No Difficulty Paying for Meds: No Currently Unemployed: No Education: Associate Degree Difficulty w/ Childcare or Family Care: No Gender identity (if verbalized by the patient): Male Spiritual care concerns: No Agree to blood products: Yes Anes - Eval Final PreProcedure Day of Procedure 04/24/25 16:22 Patient weight: normal Heart: regular rate and rhythm Lungs: clear to auscultation Airway: Mallampati scale class II and special considerations poor dentition Neurological: alert and oriented Last oral intake: >/= 8 hours ASA classification: IV Emergent: no Anesthetic plan: proceed Anesthesia type and monitoring: general LMA and standard monitoring Results Review: All pre-operative results and documents have been reviewed as part of the pre-operative evaluation. Informed Consent: The patient's anesthetic plan and its attendant risks and benefits were discussed with the patient/family/POA. Questions were solicited and answers provided to the satisfaction of the patient/family/POA.
--- NOTE | 2025-04-24 16:51 | PC.NURSE ---
1559 Patient transported to pre op. Renetta RN at bedside. All questions answered.
[2025-04-24] MEDS: BUPIVACAINE/EPINEPHRINE 0.5% 50 ML VIAL 30 ML INFILTRATE (16:56)
--- NOTE | 2025-04-24 17:10 | S_PTH ---
PATIENT: Dejna Sevilla LOC: [id number] U#:[id number] AGE/SX: 49/M ROOM: 249 RE04/23/[address]: Mary Cartagena MD : [id number] BED: 01 DIS: 05/01/2025 SPEC #: [id number] RECD: 04/25/25 07:48 STATUS: MAIA REQ #: [id number] ANDREZ: 04/24/25 17:[address]: Raul Kuo DEPT: [facility] Surgical RECD BY: Apolonia Valladares ENTERED: 04/25/25 07:49 SP TYPE: Surgical OTHR DR: Altagracia Mclean, MD Wili Ashby MD Tissues: A - Foot Procedures: Hematoxylin and Eosin Stain Gross and Microscopic Level 5
--- NOTE | 2025-04-24 17:42 | W.PM.PROC2 ---
Procedure Note - Detailed Date of Procedure 04/24/25 Pre-op Diagnosis Right foot necrotizing fasciitis, diabetic foot infection, diabetic ketoacidosis Post-op Diagnosis Same Procedure Performed Right midfoot amputation with placement of wound VAC Surgeon Raul Kuo, DO Anesthesia General Indications This is a 49-year-old man who presented to the emergency department last night with uncontrolled diabetes and a right foot wound infection. He has a history of poorly controlled diabetes and was found to be in diabetic ketoacidosis. He also had evidence of a right great toe wound that had more proximal foot involvement. X-rays did not show any signs of osteomyelitis but he did have signs of subcu gas concerning for necrotizing fasciitis. He was admitted and started on broad-spectrum IV antibiotics and an insulin drip. Once he was adequately resuscitated from the diabetic ketoacidosis, discussions were made with the patient about treatment options. There was a high likelihood of requiring a below-knee amputation but patient was requesting attempt at limb salvage. Decision was made to proceed with right midfoot amputation with wound VAC placement. Findings Right midfoot amputation was performed with wound VAC placement. The patient still had a large amount of subcutaneous infection involving the plantar fascia and tracking proximally towards the calcaneus. The necrotic tissue was excised along with the midfoot amputation. The amputation was at the level of the tarsal metatarsal joints. There did not appear to be enough healthy plantar skin and subcutaneous tissue to eventually close the wound over the bone. After excising all of the necrotic tissue and irrigating the wound, the wound measured 15 cm x 7 cm. Decision was made to place a wound VAC over the wound to help control the current infection, but this will likely require below-knee amputation to allow for complete healing. Description of Procedure Procedure as well as risks, benefits, and alternatives were discussed with the patient. Written consent was obtained and placed in chart prior to procedure. Patient was brought back to surgical suite. He was placed supine on operating table. Time-out was done to confirm patient and procedure. He was then intubated by the anesthesia department. A tourniquet was placed around the thigh and the right leg was prepped and draped in sterile fashion using Betadine prep. The tourniquet was inflated. An incision was made around the midfoot region leaving a slightly longer plantar flap but excising distal to where the open wound and necrotic skin was located. The incision was carried down through the skin and then electrocautery was used for hemostasis and for dissection through the subcutaneous tissue. The anterior surface of the bone was cleared along each of the metatarsal proximal heads. It appeared that we would be required to take the entire metatarsal head to allow for dissection beyond the infected tissue. The tarsal metatarsal joints were transected using electrocautery and the Chitra saw. The posterior flap and remaining muscular and tendinous attachments were then taken down the remainder of the way with electrocautery. The midfoot was completely excised and sent to the lab for pathology. There still appeared to be some necrotic tissue along the plantar flap and this was tracking proximally towards the calcaneus. I attempted to cut away as much of the necrotic tissue as possible but this appeared to be tracking fairly deep. There was still some purulence fluid draining from within this tracking wound. The wound was irrigated with sterile saline. The tourniquet was then released and the remaining bleeding vessels were ligated using 3-0 Vicryl [id number] sutures. Hemostasis then appeared adequate. The wound bed measured 15 cm x 7 cm. The plantar flap did not appear to come up over the bone, and there was likely still going to be at least a 3-4 cm gap even if the infection were to resolve. The black foam for the wound VAC was then packed within the open wound. The clear bandages were then applied over the black foam to secure the wound VAC in place. The suction tubing was then attached and the wound VAC was placed to suction and appeared to have no evidence of an air leak. The patient was then awakened from anesthesia, extubated, and transferred to recovery. Estimated Blood Loss 50 Urine Output 700 Complications No immediate complications Condition Critical Disposition ICU [facility] Billing Surgery - Charge Forward: Surgery Billing
[2025-04-24] MEDS: POTASSIUM CHLORIDE INJ 40 MEQ in SODIUM CHLORIDE 0.9% IV 500 ML 130 MEQ IVPB (17:55)
--- NOTE | 2025-04-24 18:19 | PC.NURSE ---
1818 PATIENT ARRIVED BACK TO ICU 9 FROM OR. BEDSIDE REPORT RECEIVED
[2025-04-24] MEDS: INSULIN HUMAN REGULAR (*BKC) 100 UNITS in SODIUM CHLORIDE 0.9% IV 99 ML IV CONT (18:35)
[2025-04-24] MEDS: KCL 20 MEQ/SW 100 ML 50 MEQ IVPB (18:49)
[2025-04-24 19:33] LABS: Anion Gap 5 mmol/L (4-12); Blood Urea Nitrogen 26 mg/dL (9-20); Calcium 8.3 mg/dL (8.4-10.2); Carbon Dioxide 23 mmol/L (22-30); Chloride 107 mmol/L (98-107); Estimated CRCL calculation 63 ml/min; Estimated Glomerular Filt Rate 56; Glucose 177 mg/dL (65-110); Potassium 3.6 mmol/L (3.4-5.0); Sodium 135 mmol/L (137-145)
[2025-04-24] MEDS: METOCLOPRAMIDE HCL INJ 10 MG/2 ML VIAL IV PUSH (21:26)
[2025-04-24] MEDS: LINEZOLID 600 MG/300 ML 600 MG/300 ML SOLN 300 MG IVPB (21:26)
[2025-04-24] MEDS: MORPHINE SULFATE (*CRX) 4 MG/ML INJ IV PUSH (21:33)
[2025-04-24] MEDS: FAMOTIDINE 20 MG/2 ML VIAL IV PUSH (22:44)
[2025-04-24] MEDS: SODIUM CHLORIDE 0.9% IV 1,000 ML 150 ML IV CONT (23:01)
[2025-04-24 23:59] LABS: Anion Gap 5 mmol/L (4-12); Blood Urea Nitrogen 24 mg/dL (9-20); Calcium 7.9 mg/dL (8.4-10.2); Carbon Dioxide 22 mmol/L (22-30); Chloride 107 mmol/L (98-107); Estimated CRCL calculation 72 ml/min; Estimated Glomerular Filt Rate > 60; Glucose 274 mg/dL (65-110); Potassium 3.3 mmol/L (3.4-5.0); Sodium 134 mmol/L (137-145)
[2025-04-25] VITALS (26 sets, daily range): BP systolic 104–161; BP diastolic 62–94; PULSE 85–114; RESP 13–95; TEMP 36.3–37.1; O2SAT 95–100
[2025-04-25] MEDS: POTASSIUM CHLORIDE INJ 40 MEQ in SODIUM CHLORIDE 0.9% IV 500 ML 130 MEQ IVPB (00:35)
[2025-04-25 04:31] LABS: Hematocrit 32.1 % (42.0-52.0); Hemoglobin 9.7 g/dL (14.0-18.0); Immature Granulocyte Percent A 1.0 % (0-0.5); Lymphocytes Absolute Auto 1.35 K/mm3 (0.9-3.2); Mean Corpuscular HGB Conc 30.2 g/dl (32-36); Mean Corpuscular Hemoglobin 20.8 pg (26-34); Mean Corpuscular Volume 68.9 fl (80-100); Nucleated Red Blood Cells Absolute Auto 0.000 K/mm3 (0.0-0.012); Nucleated Red Blood Cells Perc 0.0 % (0.0-0.2); Platelet Count Result 443 k/mm3 (150-375); Red Blood Count 4.66 M/mm3 (4.6-6.20); White Blood Count 18.5 K/mm3 (4.5-10.0)
[2025-04-25 04:49] LABS: Alanine Aminotransferase 7 U/L (6-50); Albumin Level 2.4 g/dL (3.5-5.1); Alkaline Phosphatase 108 U/L (38-126); Anion Gap 4 mmol/L (4-12); Aspartate Amino Transferase 17 U/L (17-59); Bilirubin,Total 0.3 mg/dL (0.2-1.3); Blood Urea Nitrogen 20 mg/dL (9-20); Calcium 7.9 mg/dL (8.4-10.2); Carbon Dioxide 22 mmol/L (22-30); Chloride 111 mmol/L (98-107); Estimated CRCL calculation 68 ml/min; Estimated Glomerular Filt Rate 60; Glucose 208 mg/dL (65-110); Lipase 36 U/L (23-300); Magnesium 1.7 mg/dL (1.6-2.3); Potassium 4.1 mmol/L (3.4-5.0); Sodium 137 mmol/L (137-145); Total Protein 5.8 g/dL (6.3-8.2)
[2025-04-25 05:10] LABS: Anisocytosis 2+; Burr Cells 2+; Ovalocytes 1+
[2025-04-25 05:11] LABS: Schistocytes Rare; Target Cells Occasional
[2025-04-25] MEDS: metroNIDAZOLE 500 MG/ISO 100ML 500 MG/100 ML BAG 100 MG IVPB ×3 (06:47→23:09)
[2025-04-25] MEDS: SODIUM CHLORIDE 0.9% IV 1,000 ML 150 ML IV CONT (07:37)
[2025-04-25] MEDS: KCL 20 MEQ/D5/0.45% SOD CHL 1,000 ML 150 ML IV CONT ×2 (07:37→18:11)
[2025-04-25 09:04] LABS: Anion Gap 4 mmol/L (4-12); Blood Urea Nitrogen 18 mg/dL (9-20); Calcium 8.0 mg/dL (8.4-10.2); Carbon Dioxide 23 mmol/L (22-30); Chloride 110 mmol/L (98-107); Estimated CRCL calculation 69 ml/min; Estimated Glomerular Filt Rate > 60; Glucose 214 mg/dL (65-110); Potassium 3.7 mmol/L (3.4-5.0); Sodium 137 mmol/L (137-145)
[2025-04-25] MEDS: FAMOTIDINE 20 MG/2 ML VIAL IV PUSH ×2 (10:26→20:57)
[2025-04-25] MEDS: CEFEPIME 1 GM in SODIUM CHLORIDE 0.9% IV 50 ML 100 ML IVPB ×2 (10:27→21:10)
[2025-04-25] MEDS: POTASSIUM PHOS,M-BASIC-D-BASIC 20 MMOL in SODIUM CHLORIDE 0.9% IV 250 ML 64.17 MMOL IVPB (10:28)
[2025-04-25] MEDS: LINEZOLID 600 MG/300 ML 600 MG/300 ML SOLN 300 MG IVPB ×2 (10:35→22:02)
--- NOTE | 2025-04-25 10:54 | PCFNICU ---
ICU Rounding Note: Pt current nutrition is NPO. Nutrition recommendation: DBCC Last recorded weight is 75.8 kg. Bowel Motility: No BM reported. Labs Reviewed: PO4 1.3, Glu 214, ,Alb 2.4, Hct , Hgb 9.7 Meds Noted: Flagyl, Insulin Skin: Right mid foot amputation with wound vac. Additional Notes: Patient is currently NPO for surgery today. Right mid foot amputation 04/24. Plans for Right BKA today. Recommend advancing when medically able to CC diet. Following daily in ICU rounds.
--- NOTE | 2025-04-25 11:32 | WPDINTPN2 ---
Assessment and Plan Assessment and Plan (1) DKA (diabetic ketoacidosis): Code(s): E11.10 - Type 2 diabetes mellitus with ketoacidosis without coma Status: Acute Assessment and Plan: 04/23: Patient presented the ED with hyperglycemia, blood sugars of 621, CO2 < 5, elevated beta hydroxybutyrate. Diagnosed with DKA in the ER, was given 4 L IV fluid bolus, started on insulin drip per DKA protocol and transferred to the ICU -patient remains on insulin infusion along with the fluids per DKA protocol -I giving 1 L IV fluid bolus this morning -will keep patient on insulin infusion since he is going for surgery today -hemoglobin A1c of 11.2, this admission -dietitian and development educator have been consulted -since patient (2) Sepsis: Code(s): A41.9 - Sepsis, unspecified organism Status: Acute Assessment and Plan: Patient presented with fall smelling necrotic ulcer on the plantar aspect of his right big toe with purulent drainage. WBC 30.7 on admission, patient was given 1 dose of clindamycin -started overnight on vancomycin, cefepime and Flagyl (04/23) -will discontinue vancomycin add linezolid (04/24) for necrotizing fasciitis -04/23: blood and wound cultures have been obtained and pending -04/26: continue insulin infusion for now as patient is going for surgery again today. Once he is back from surgery, will start Lantus, sliding scale insulin and diabetic diet (3) Necrotizing fasciitis: Code(s): M72.6 - Necrotizing fasciitis Status: Acute Assessment and Plan: Necrotizing fasciitis likely of the right great toe, extending over 1st and 2nd metatarsal on the right foot. X-ray of the foot showed soft tissue gas concerning for necrotizing fasciitis -antibiotics as above -patient to the OR sometime today 04/24: Status post Right midfoot amputation with placement of wound VAC 04/25: Discussed with surgeon, patient will be going for below-knee amputation today (4) Acute kidney injury superimposed on chronic kidney disease: Code(s): N17.9 - Acute kidney failure, unspecified; N18.9 - Chronic kidney disease, unspecified Status: Acute Assessment and Plan: Acute on chronic renal failure, creatinine was 2.44 on admission (baseline 1.40-1.90) -patient adequately fluid-resuscitated -urine output has been adequate -creatinine has normalized -continue to monitor urine output, renal function electrolytes Plan DVT prophylaxis: Lovenox Stress ulcer prophylaxis: Not indicated Nutrition: NPO for now Code Status: Full code Critical Care Time Spent: 33 minutes Discussed with patient updated his condition and plan of care. Due to a high probability of clinically significant, life threatening deterioration, the patient required my highest level of preparedness to intervene emergently and I personally spent this critical care time directly and personally managing the patient. This critical care time included obtaining a history; examining the patient; pulse oximetry; ordering and review of studies; arranging urgent treatment with development of a management plan; evaluation of patient's response to treatment; frequent reassessment; and discussions with other providers. It was exclusive of separately billable procedures and treating other patients and teaching time. Please see Assessment and Plan section and the rest of the note for further information on patient assessment and treatment This dictation may have been done utilizing a voice recognition system. Attempts have been made to correct errors. However, there may be uncorrected grammatical, spelling, and recognitions errors present. Subjective Date/time seen: 04/25/25 11:32 Interval history: Reason for consult: Reason for consult: Necrotizing fasciitis, diabetic ketoacidosis, generalized weakness, nausea, vomiting, infected foot also along with foot pain, shortness of breath and hyperglycemia 04/25: Right midfoot amputation with placement of wound VAC 04/26/2025: Patient seen examined the ICU, is awake, alert, oriented, requests for water and ice chips. Patient is going to be going to the OR again today per surgeon. Hemodynamically stable, remains on insulin infusion, adequate urine output, afebrile Review of Systems Review of Systems: All systems reviewed & are unremarkable except as noted in HPI and below Exam Narrative: General: Pleasant gentleman, in no acute distress HEENT:? Pupils equal and reactive, sclera is clear, moist oral mucous Neck:? Supple Respiratory:? Clear to auscultation bilaterally, no wheeze, adequate air entry Cardiac:? S1-S2 normal, regular rate and rhythm Abdomen:? Soft, nontender, nondistended, normoactive bowel sounds Extremities:? Right foot amputation with wound VAC in place . Neuro:? Patient is awake, alert, oriented, answers to questions appropriately and follows simple commands Skin:? As above Psych:? Normal mentation and affect Objective Data Vital Signs Vital Signs: Vital Signs - 24 hr 04/24/25 12:00 04/24/25 12:00 04/24/25 12:00 Temperature 98.5 F Pulse Rate 95 82 Respiratory Rate 24 H Blood Pressure 131/75 Pulse Oximetry 100 99 Oxygen Delivery Room Air Oxygen Flow Rate 04/24/25 13:00 04/24/25 14:00 04/24/25 14:00 Temperature 98.3 F Pulse Rate 84 90 90 Respiratory Rate 11 L 16 Blood Pressure 148/79 H 145/80 H Pulse Oximetry 100 100 Oxygen Delivery Oxygen Flow Rate 04/24/25 15:10 04/24/25 15:55 04/24/25 16:10 Temperature 98.1 F Pulse Rate 82 102 H Respiratory Rate 15 18 Blood Pressure 138/85 160/86 H Pulse Oximetry 98 100 100 Oxygen Delivery Room Air Room Air Oxygen Flow Rate 04/24/25 17:38 04/24/25 17:41 04/24/25 17:55 Temperature 98.3 F Pulse Rate 80 87 93 Respiratory Rate 25 H 20 14 Blood Pressure 96/55 L 102/68 107/73 Pulse Oximetry 100 100 100 Oxygen Delivery Simple Face Mask Simple Face Mask Room Air Oxygen Flow Rate 8 8 04/24/25 18:05 04/24/25 18:21 04/24/25 19:00 Temperature 98.4 F 98.1 F Pulse Rate 92 94 90 Respiratory Rate 15 19 28 H Blood Pressure 113/75 129/77 134/74 Pulse Oximetry 100 96 96 Oxygen Delivery Room Air Oxygen Flow Rate 04/24/25 20:00 04/24/25 20:00 04/24/25 20:00 Temperature 98.4 F Pulse Rate 90 90 90 Respiratory Rate 28 H 24 H Blood Pressure 137/80 Pulse Oximetry 96 98 Oxygen Delivery Room Air Oxygen Flow Rate 04/24/25 21:00 04/24/25 22:00 04/24/25 22:00 Temperature Pulse Rate 100 96 96 Respiratory Rate 21 H 27 H Blood Pressure 153/83 H 117/61 Pulse Oximetry 98 97 Oxygen Delivery Oxygen Flow Rate 04/24/25 23:00 04/24/25 23:12 04/25/25 00:00 Temperature 98.5 F Pulse Rate 94 90 95 Respiratory Rate 24 H 20 21 H Blood Pressure 111/62 112/63 Pulse Oximetry 98 99 99 Oxygen Delivery Room Air Oxygen Flow Rate 04/25/25 00:00 04/25/25 01:00 04/25/25 02:00 Temperature Pulse Rate 95 94 97 Respiratory Rate 22 H Blood Pressure 104/68 Pulse Oximetry 98 Oxygen Delivery Oxygen Flow Rate 04/25/25 02:00 04/25/25 03:00 04/25/25 03:37 Temperature Pulse Rate 96 99 99 Respiratory Rate 21 H 24 H 24 H Blood Pressure 109/68 110/62 Pulse Oximetry 98 97 97 Oxygen Delivery Room Air Oxygen Flow Rate 04/25/25 04:00 04/25/25 04:00 04/25/25 05:00 Temperature 98.3 F Pulse Rate 98 99 93 Respiratory Rate 22 H 23 H Blood Pressure 118/70 Pulse Oximetry 97 96 Oxygen Delivery Oxygen Flow Rate 04/25/25 06:00 04/25/25 06:00 04/25/25 07:00 Temperature 98.4 F Pulse Rate 94 94 93 Respiratory Rate 22 H 19 Blood Pressure 144/78 H 126/77 Pulse Oximetry 97 98 Oxygen Delivery Oxygen Flow Rate 04/25/25 08:00 04/25/25 08:00 04/25/25 08:00 Temperature 98.3 F Pulse Rate 86 85 Respiratory Rate 26 H Blood Pressure 140/80 Pulse Oximetry 97 Oxygen Delivery Room Air Oxygen Flow Rate 04/25/25 09:00 04/25/25 10:00 04/25/25 10:00 Temperature 98.1 F Pulse Rate 88 113 H 109 H Respiratory Rate 22 H 23 H Blood Pressure 123/76 161/93 H Pulse Oximetry 98 99 Oxygen Delivery Oxygen Flow Rate Intake/Output Intake/Output: Intake & Output 04/22/25 04/23/25 04/24/25 04/25/25 23:59 23:59 23:59 23:59 Intake Total 4108.4 5381.7 1511.3 Output Total 4400 700 Balance 4108.4 981.7 811.3 Meds/Results Medications: Active Medications Generic Name Dose Route Start Last Admin Trade Name Freq PRN Reason Stop Dose Admin Acetaminophen 650 mg 04/23/25 22:18 Acetaminophen 325 Mg Tablet PO Q4H PRN Mild Pain (1-3) or Fever Dextrose 12.5 gm 04/23/25 22:05 Dextrose 50% 25 Gm/50 Ml Syringe IV PUSH PRN PRN Hypoglycemia Protocol Enoxaparin Sodium 40 mg 04/24/25 09:00 04/25/25 10:26 Enoxaparin 40 Mg/0.4 Ml Syringe SUB-Q Not Given DAILY KEEGAN Famotidine 20 mg 04/24/25 22:25 04/25/25 10:26 Famotidine 20 Mg/2 Ml Vial IV PUSH 20 mg Q12HR KEEGAN Administration Glucagon 1 mg 04/23/25 22:05 Glucagon For Inj 1 Mg Vial IM PRN PRN Hypoglycemia Protocol Glucose 15 gm 04/23/25 22:05 Glucose Oral Gel 15 Gm Of Glucse In 37.5 Gm Tube PO PRN PRN Hypoglycemia Protocol Hydralazine HCl 10 mg 04/24/25 04:41 Hydralazine Hcl 20 Mg/Ml Vial IV PUSH Q8H PRN Blood Pressure - High Sodium Chloride 1,000 mls @ 150 mls/hr 04/23/25 22:05 04/25/25 08:23 Normal Saline Iv IV CONT 0 mls/hr .Q6H40M KEEGAN Infusion Potassium Chloride/Dextrose/Sod Cl 1,000 mls @ 150 mls/hr 04/23/25 22:05 04/25/25 07:38 Kcl 20 Meq/D5/0.45% Sod Chl IV CONT 0 mls/hr .Q6H40M KEEGAN Infusion Dextrose/Sodium Chloride 1,000 mls @ 150 mls/hr 04/23/25 22:05 04/24/25 19:36 Dextrose 5% Sodium Chloride 0.45% IV CONT Not Given .Q6H40M KEEGAN Insulin Human Regular 100 100 mls @ 1 mls/hr 04/23/25 22:15 04/25/25 10:29 units/ Sodium Chloride IV CONT 1 units/hr .Q24H KEEGAN 1 mls/hr Protocol Titration 1 UNITS/HR Dextrose 1,000 mls @ 100 mls/hr 04/23/25 22:05 Dextrose 5% 1,000 Ml IVPB PRN PRN Hypoglycemia Protocol Cefepime HCl 1 gm/ Sodium 50 mls @ 100 mls/hr 04/24/25 09:00 04/25/25 10:27 Chloride IVPB 100 mls/hr Q12H KEEGAN Administration Metronidazole 500 mg in 100 mls @ 100 mls/hr 04/24/25 05:00 04/25/25 08:24 Flagyl 500 Mg/Iso Soln 100 Ml IVPB Infused Q8HR KEEGAN Infusion Linezolid 600 mg in 300 mls @ 300 mls/hr 04/24/25 21:00 04/25/25 10:35 Zyvox IVPB 300 mls/hr Q12HR KEEGAN Administration Lactated Ringer's 1,000 mls @ 30 mls/hr 04/24/25 16:40 04/24/25 17:38 Lr - Lactated Ringers Iv IV CONT Infused .Q24H KEEGAN Infusion Potassium Phosphate 20 mmol/ 256.6667 mls @ 64.167 mls/hr 04/25/25 09:00 04/25/25 10:28 Sodium Chloride IVPB 04/25/25 12:59 64.17 mls/hr ONCE ONE Administration Morphine Sulfate 4 mg 04/23/25 22:18 04/24/25 21:33 Morphine Sulfate (*Crx) 4 Mg/Ml Inj IV PUSH 4 mg Q2H PRN Administration Pain Rated 7-10 Ondansetron HCl 4 mg 04/24/25 04:47 04/24/25 18:23 Ondansetron Inj 4 Mg/2 Ml Vial IV PUSH 4 mg Q4H PRN Administration Nausea And Vomiting Radiology Results: ITS Impressions Chest X-Ray 04/23/25 21:32 IMPRESSION: No acute pulmonary findings. Foot X-Ray 04/23/25 21:33 IMPRESSION: There is soft tissue gas adjacent to the first metatarsal. There are concern for osteomyelitis follow-up MRI is recommended. Labs Labs: Laboratory Results - last 24 hr 04/24/25 04/24/25 04/24/25 12:16 12:56 14:41 WBC RBC Hgb Hct MCV MCH MCHC RDW Plt Count MPV Immature Gran % (Auto) Neut % (Auto) Lymph % (Auto) Stephens % (Auto) Eos % (Auto) Baso % (Auto) Lymph # (Auto) Stephens # (Auto) Eos # (Auto) Baso # (Auto) Abs Immat Gran (auto) Absolute Neuts (auto) Absolute Nucleated RBC Band Neutrophils % Nucleated RBC % Platelet Estimate Large Platelets Anisocytosis Target Cells Ovalocytes Surprise Cells Schistocytes Sodium Potassium Chloride Carbon Dioxide Anion Gap BUN Creatinine Estim Creat Clear Calc Estimated GFR Glucose POC Capillary Glucose 239 H 233 H 221 H Lactic Acid Calcium Phosphorus Magnesium Total Bilirubin AST ALT Alkaline Phosphatase Total Protein Albumin Lipase 04/24/25 04/24/25 04/24/25 14:47 16:00 17:40 WBC RBC Hgb Hct MCV MCH MCHC RDW Plt Count MPV Immature Gran % (Auto) Neut % (Auto) Lymph % (Auto) Stephens % (Auto) Eos % (Auto) Baso % (Auto) Lymph # (Auto) Stephens # (Auto) Eos # (Auto) Baso # (Auto) Abs Immat Gran (auto) Absolute Neuts (auto) Absolute Nucleated RBC Band Neutrophils % Nucleated RBC % Platelet Estimate Large Platelets Anisocytosis Target Cells Ovalocytes Florin Cells Schistocytes Sodium 137 Potassium 3.1 L Chloride 107 Carbon Dioxide 25 Anion Gap 5 BUN 28 H Creatinine 1.42 H Estim Creat Clear Calc 61 Estimated GFR 53 L Glucose 191 H POC Capillary Glucose 207 H 174 H Lactic Acid Calcium 8.3 L Phosphorus Magnesium Total Bilirubin AST ALT Alkaline Phosphatase Total Protein Albumin Lipase 04/24/25 04/24/25 04/24/25 18:29 19:16 19:31 WBC RBC Hgb Hct MCV MCH MCHC RDW Plt Count MPV Immature Gran % (Auto) Neut % (Auto) Lymph % (Auto) Stephens % (Auto) Eos % (Auto) Baso % (Auto) Lymph # (Auto) Stephens # (Auto) Eos # (Auto) Baso # (Auto) Abs Immat Gran (auto) Absolute Neuts (auto) Absolute Nucleated RBC Band Neutrophils % Nucleated RBC % Platelet Estimate Large Platelets Anisocytosis Target Cells Ovalocytes Surprise Cells Schistocytes Sodium 135 L Potassium 3.6 Chloride 107 Carbon Dioxide 23 Anion Gap 5 BUN 26 H Creatinine 1.37 H Estim Creat Clear Calc 63 Estimated GFR 56 L Glucose 177 H POC Capillary Glucose 186 H 187 H Lactic Acid Calcium 8.3 L Phosphorus Magnesium Total Bilirubin AST ALT Alkaline Phosphatase Total Protein Albumin Lipase 04/24/25 04/24/25 04/24/25 21:39 22:54 23:40 WBC RBC Hgb Hct MCV MCH MCHC RDW Plt Count MPV Immature Gran % (Auto) Neut % (Auto) Lymph % (Auto) Stephens % (Auto) Eos % (Auto) Baso % (Auto) Lymph # (Auto) Stephens # (Auto) Eos # (Auto) Baso # (Auto) Abs Immat Gran (auto) Absolute Neuts (auto) Absolute Nucleated RBC Band Neutrophils % Nucleated RBC % Platelet Estimate Large Platelets Anisocytosis Target Cells Ovalocytes Florin Cells Schistocytes Sodium 134 L Potassium 3.3 L Chloride 107 Carbon Dioxide 22 Anion Gap 5 BUN 24 H Creatinine 1.20 Estim Creat Clear Calc 72 Estimated GFR > 60 Glucose 274 H POC Capillary Glucose 220 H 285 H Lactic Acid Calcium 7.9 L Phosphorus Magnesium Total Bilirubin AST ALT Alkaline Phosphatase Total Protein Albumin Lipase 04/25/25 04/25/25 04/25/25 00:25 01:54 03:21 WBC RBC Hgb Hct MCV MCH MCHC RDW Plt Count MPV Immature Gran % (Auto) Neut % (Auto) Lymph % (Auto) Stephens % (Auto) Eos % (Auto) Baso % (Auto) Lymph # (Auto) Stephens # (Auto) Eos # (Auto) Baso # (Auto) Abs Immat Gran (auto) Absolute Neuts (auto) Absolute Nucleated RBC Band Neutrophils % Nucleated RBC % Platelet Estimate Large Platelets Anisocytosis Target Cells Ovalocytes Surprise Cells Schistocytes Sodium Potassium Chloride Carbon Dioxide Anion Gap BUN Creatinine Estim Creat Clear Calc Estimated GFR Glucose POC Capillary Glucose 257 H 191 H 188 H Lactic Acid Calcium Phosphorus Magnesium Total Bilirubin AST ALT Alkaline Phosphatase Total Protein Albumin Lipase 04/25/25 04/25/25 04/25/25 04:23 05:34 06:46 WBC 18.5 H RBC 4.66 Hgb 9.7 L Hct 32.1 L MCV 68.9 L MCH 20.8 L MCHC 30.2 L RDW 19.2 H Plt Count 443 H MPV 9.8 Immature Gran % (Auto) 1.0 H Neut % (Auto) 83.4 H Lymph % (Auto) 7.3 L Stephens % (Auto) 8.2 Eos % (Auto) 0.0 Baso % (Auto) 0.1 L Lymph # (Auto) 1.35 Stephens # (Auto) 1.5 H Eos # (Auto) 0.0 Baso # (Auto) 0.0 Abs Immat Gran (auto) 0.19 H Absolute Neuts (auto) 15.5 H Absolute Nucleated RBC 0.000 Band Neutrophils % Not Reportable Nucleated RBC % 0.0 Platelet Estimate Increased Large Platelets Present Anisocytosis 2+ Target Cells Occasional Ovalocytes 1+ Surprise Cells 2+ Schistocytes Rare Sodium 137 Potassium 4.1 Chloride 111 H Carbon Dioxide 22 Anion Gap 4 BUN 20 Creatinine 1.28 Estim Creat Clear Calc 68 Estimated GFR 60 Glucose 208 H POC Capillary Glucose 208 H 235 H Lactic Acid 1.5 Calcium 7.9 L Phosphorus 1.3 L Magnesium 1.7 Total Bilirubin 0.3 AST 17 ALT 7 Alkaline Phosphatase 108 Total Protein 5.8 L Albumin 2.4 L Lipase 36 04/25/25 04/25/25 04/25/25 07:35 08:13 08:30 WBC RBC Hgb Hct MCV MCH MCHC RDW Plt Count MPV Immature Gran % (Auto) Neut % (Auto) Lymph % (Auto) Stephens % (Auto) Eos % (Auto) Baso % (Auto) Lymph # (Auto) Stephens # (Auto) Eos # (Auto) Baso # (Auto) Abs Immat Gran (auto) Absolute Neuts (auto) Absolute Nucleated RBC Band Neutrophils % Nucleated RBC % Platelet Estimate Large Platelets Anisocytosis Target Cells Ovalocytes Florin Cells Schistocytes Sodium 137 Potassium 3.7 Chloride 110 H Carbon Dioxide 23 Anion Gap 4 BUN 18 Creatinine 1.26 Estim Creat Clear Calc 69 Estimated GFR > 60 Glucose 214 H POC Capillary Glucose 252 H 223 H Lactic Acid Calcium 8.0 L Phosphorus Magnesium Total Bilirubin AST ALT Alkaline Phosphatase Total Protein Albumin Lipase 04/25/25 09:11 WBC RBC Hgb Hct MCV MCH MCHC RDW Plt Count MPV Immature Gran % (Auto) Neut % (Auto) Lymph % (Auto) Stephens % (Auto) Eos % (Auto) Baso % (Auto) Lymph # (Auto) Stephens # (Auto) Eos # (Auto) Baso # (Auto) Abs Immat Gran (auto) Absolute Neuts (auto) Absolute Nucleated RBC Band Neutrophils % Nucleated RBC % Platelet Estimate Large Platelets Anisocytosis Target Cells Ovalocytes Florin Cells Schistocytes Sodium Potassium Chloride Carbon Dioxide Anion Gap BUN Creatinine Estim Creat Clear Calc Estimated GFR Glucose POC Capillary Glucose 203 H Lactic Acid Calcium Phosphorus Magnesium Total Bilirubin AST ALT Alkaline Phosphatase Total Protein Albumin Lipase Quality VTE Prophylaxis VTE prophylaxis: pharmacologic ordered
--- NOTE | 2025-04-25 11:50 | P.PNGS_ITS ---
Progress Note: A&P Assessment and Plan (1) Necrotizing fasciitis: Code(s): M72.6 - Necrotizing fasciitis Status: Acute Assessment and Plan: * Will proceed with right below knee amputation today. Discussed the procedure, risks, benefits, and alternatives. Questions answered. Will plan to get PT/OT eval postop. Patient will likely need rehab or home health arranged postop. (2) Ulcer of right great toe due to diabetes mellitus: Code(s): E11.621 - Type 2 diabetes mellitus with foot ulcer; L97.519 - Non-pressure chronic ulcer of other part of right foot with unspecified severity Status: Acute (3) Cellulitis of foot associated with diabetes mellitus: Code(s): E11.628 - Type 2 diabetes mellitus with other skin complications; L03.119 - Cellulitis of unspecified part of limb Status: Acute (4) DKA (diabetic ketoacidosis): Code(s): E11.10 - Type 2 diabetes mellitus with ketoacidosis without coma Status: Acute Subjective Subjective Date/Time Seen: 04/25/25 11:50 Interval history: Had thorough discussion with patient about surgical findings yesterday with midfoot amputation. Persisted necrotizing infection appeared to track proximally on the calcaneous soft tissue, and there is not enough skin/soft tissue to heal over the midfoot amputation. In order to prevent further progression of infection up his leg, he will require below knee amputation. Exam Extrem: Other: right foot wound vac in place. minimal bloody drainage. erythema along proximal foot and ankle. Objective Data Vital Signs Vital Signs: Vital Signs - 24 hr 04/24/25 12:00 04/24/25 12:00 04/24/25 12:00 Temperature 98.5 F Pulse Rate 95 82 Respiratory Rate 24 H Blood Pressure 131/75 Pulse Oximetry 100 99 Oxygen Delivery Room Air Oxygen Flow Rate 04/24/25 13:00 04/24/25 14:00 04/24/25 14:00 Temperature 98.3 F Pulse Rate 84 90 90 Respiratory Rate 11 L 16 Blood Pressure 148/79 H 145/80 H Pulse Oximetry 100 100 Oxygen Delivery Oxygen Flow Rate 04/24/25 15:10 04/24/25 15:55 04/24/25 16:10 Temperature 98.1 F Pulse Rate 82 102 H Respiratory Rate 15 18 Blood Pressure 138/85 160/86 H Pulse Oximetry 98 100 100 Oxygen Delivery Room Air Room Air Oxygen Flow Rate 04/24/25 17:38 04/24/25 17:41 04/24/25 17:55 Temperature 98.3 F Pulse Rate 80 87 93 Respiratory Rate 25 H 20 14 Blood Pressure 96/55 L 102/68 107/73 Pulse Oximetry 100 100 100 Oxygen Delivery Simple Face Mask Simple Face Mask Room Air Oxygen Flow Rate 8 8 04/24/25 18:05 04/24/25 18:21 04/24/25 19:00 Temperature 98.4 F 98.1 F Pulse Rate 92 94 90 Respiratory Rate 15 19 28 H Blood Pressure 113/75 129/77 134/74 Pulse Oximetry 100 96 96 Oxygen Delivery Room Air Oxygen Flow Rate 04/24/25 20:00 04/24/25 20:00 04/24/25 20:00 Temperature 98.4 F Pulse Rate 90 90 90 Respiratory Rate 28 H 24 H Blood Pressure 137/80 Pulse Oximetry 96 98 Oxygen Delivery Room Air Oxygen Flow Rate 04/24/25 21:00 04/24/25 22:00 04/24/25 22:00 Temperature Pulse Rate 100 96 96 Respiratory Rate 21 H 27 H Blood Pressure 153/83 H 117/61 Pulse Oximetry 98 97 Oxygen Delivery Oxygen Flow Rate 04/24/25 23:00 04/24/25 23:12 04/25/25 00:00 Temperature 98.5 F Pulse Rate 94 90 95 Respiratory Rate 24 H 20 21 H Blood Pressure 111/62 112/63 Pulse Oximetry 98 99 99 Oxygen Delivery Room Air Oxygen Flow Rate 04/25/25 00:00 04/25/25 01:00 04/25/25 02:00 Temperature Pulse Rate 95 94 97 Respiratory Rate 22 H Blood Pressure 104/68 Pulse Oximetry 98 Oxygen Delivery Oxygen Flow Rate 04/25/25 02:00 04/25/25 03:00 04/25/25 03:37 Temperature Pulse Rate 96 99 99 Respiratory Rate 21 H 24 H 24 H Blood Pressure 109/68 110/62 Pulse Oximetry 98 97 97 Oxygen Delivery Room Air Oxygen Flow Rate 04/25/25 04:00 04/25/25 04:00 04/25/25 05:00 Temperature 98.3 F Pulse Rate 98 99 93 Respiratory Rate 22 H 23 H Blood Pressure 118/70 Pulse Oximetry 97 96 Oxygen Delivery Oxygen Flow Rate 04/25/25 06:00 04/25/25 06:00 04/25/25 07:00 Temperature 98.4 F Pulse Rate 94 94 93 Respiratory Rate 22 H 19 Blood Pressure 144/78 H 126/77 Pulse Oximetry 97 98 Oxygen Delivery Oxygen Flow Rate 04/25/25 08:00 04/25/25 08:00 04/25/25 08:00 Temperature 98.3 F Pulse Rate 86 85 Respiratory Rate 26 H Blood Pressure 140/80 Pulse Oximetry 97 Oxygen Delivery Room Air Oxygen Flow Rate 04/25/25 09:00 04/25/25 10:00 04/25/25 10:00 Temperature 98.1 F Pulse Rate 88 113 H 109 H Respiratory Rate 22 H 23 H Blood Pressure 123/76 161/93 H Pulse Oximetry 98 99 Oxygen Delivery Oxygen Flow Rate 04/25/25 11:00 Temperature Pulse Rate 100 Respiratory Rate 22 H Blood Pressure 156/94 H Pulse Oximetry 100 Oxygen Delivery Oxygen Flow Rate Intake/Output Intake/Output: Intake & Output 04/22/25 04/23/25 04/24/25 04/25/25 23:59 23:59 23:59 23:59 Intake Total 4108.4 5381.7 1511.3 Output Total 4400 700 Balance 4108.4 981.7 811.3 Meds/Results Medications: Active Medications Generic Name Dose Route Start Last Admin Trade Name Freq PRN Reason Stop Dose Admin Acetaminophen 650 mg 04/23/25 22:18 Acetaminophen 325 Mg Tablet PO Q4H PRN Mild Pain (1-3) or Fever Dextrose 12.5 gm 04/23/25 22:05 Dextrose 50% 25 Gm/50 Ml Syringe IV PUSH PRN PRN Hypoglycemia Protocol Enoxaparin Sodium 40 mg 04/24/25 09:00 04/25/25 10:26 Enoxaparin 40 Mg/0.4 Ml Syringe SUB-Q Not Given DAILY KEEGAN Famotidine 20 mg 04/24/25 22:25 04/25/25 10:26 Famotidine 20 Mg/2 Ml Vial IV PUSH 20 mg Q12HR KEEGAN Administration Glucagon 1 mg 04/23/25 22:05 Glucagon For Inj 1 Mg Vial IM PRN PRN Hypoglycemia Protocol Glucose 15 gm 04/23/25 22:05 Glucose Oral Gel 15 Gm Of Glucse In 37.5 Gm Tube PO PRN PRN Hypoglycemia Protocol Hydralazine HCl 10 mg 04/24/25 04:41 Hydralazine Hcl 20 Mg/Ml Vial IV PUSH Q8H PRN Blood Pressure - High Sodium Chloride 1,000 mls @ 150 mls/hr 04/23/25 22:05 04/25/25 08:23 Normal Saline Iv IV CONT 0 mls/hr .Q6H40M KEEGAN Infusion Potassium Chloride/Dextrose/Sod Cl 1,000 mls @ 150 mls/hr 04/23/25 22:05 04/25/25 07:38 Kcl 20 Meq/D5/0.45% Sod Chl IV CONT 0 mls/hr .Q6H40M KEEGAN Infusion Dextrose/Sodium Chloride 1,000 mls @ 150 mls/hr 04/23/25 22:05 04/24/25 19:36 Dextrose 5% Sodium Chloride 0.45% IV CONT Not Given .Q6H40M KEEGAN Insulin Human Regular 100 100 mls @ 1 mls/hr 04/23/25 22:15 04/25/25 10:29 units/ Sodium Chloride IV CONT 1 units/hr .Q24H KEEGAN 1 mls/hr Protocol Titration 1 UNITS/HR Dextrose 1,000 mls @ 100 mls/hr 04/23/25 22:05 Dextrose 5% 1,000 Ml IVPB PRN PRN Hypoglycemia Protocol Cefepime HCl 1 gm/ Sodium 50 mls @ 100 mls/hr 04/24/25 09:00 04/25/25 10:27 Chloride IVPB 100 mls/hr Q12H KEEGAN Administration Metronidazole 500 mg in 100 mls @ 100 mls/hr 04/24/25 05:00 04/25/25 08:24 Flagyl 500 Mg/Iso Soln 100 Ml IVPB Infused Q8HR KEEGAN Infusion Linezolid 600 mg in 300 mls @ 300 mls/hr 04/24/25 21:00 04/25/25 10:35 Zyvox IVPB 300 mls/hr Q12HR KEEGAN Administration Lactated Ringer's 1,000 mls @ 30 mls/hr 04/24/25 16:40 04/24/25 17:38 Lr - Lactated Ringers Iv IV CONT Infused .Q24H KEEGAN Infusion Potassium Phosphate 20 mmol/ 256.6667 mls @ 64.167 mls/hr 04/25/25 09:00 04/25/25 10:28 Sodium Chloride IVPB 04/25/25 12:59 64.17 mls/hr ONCE ONE Administration Morphine Sulfate 4 mg 04/23/25 22:18 04/24/25 21:33 Morphine Sulfate (*Crx) 4 Mg/Ml Inj IV PUSH 4 mg Q2H PRN Administration Pain Rated 7-10 Ondansetron HCl 4 mg 04/24/25 04:47 04/24/25 18:23 Ondansetron Inj 4 Mg/2 Ml Vial IV PUSH 4 mg Q4H PRN Administration Nausea And Vomiting Radiology Results: ITS Impressions Chest X-Ray 04/23/25 21:32 IMPRESSION: No acute pulmonary findings. Foot X-Ray 04/23/25 21:33 IMPRESSION: There is soft tissue gas adjacent to the first metatarsal. There are concern for osteomyelitis follow-up MRI is recommended. Labs Labs: Laboratory Results - last 24 hr 04/24/25 04/24/25 04/24/25 12:16 12:56 14:41 WBC RBC Hgb Hct MCV MCH MCHC RDW Plt Count MPV Immature Gran % (Auto) Neut % (Auto) Lymph % (Auto) [place] % (Auto) Eos % (Auto) Baso % (Auto) Lymph # (Auto) [place] # (Auto) Eos # (Auto) Baso # (Auto) Abs Immat Gran (auto) Absolute Neuts (auto) Absolute Nucleated RBC Band Neutrophils % Nucleated RBC % Platelet Estimate Large Platelets Anisocytosis Target Cells Ovalocytes [place] Cells Schistocytes Sodium Potassium Chloride Carbon Dioxide Anion Gap BUN Creatinine Estim Creat Clear Calc Estimated GFR Glucose POC Capillary Glucose 239 H 233 H 221 H Lactic Acid Calcium Phosphorus Magnesium Total Bilirubin AST ALT Alkaline Phosphatase Total Protein Albumin Lipase 04/24/25 04/24/25 04/24/25 14:47 16:00 17:40 WBC RBC Hgb Hct MCV MCH MCHC RDW Plt Count MPV Immature Gran % (Auto) Neut % (Auto) Lymph % (Auto) [place] % (Auto) Eos % (Auto) Baso % (Auto) Lymph # (Auto) [place] # (Auto) Eos # (Auto) Baso # (Auto) Abs Immat Gran (auto) Absolute Neuts (auto) Absolute Nucleated RBC Band Neutrophils % Nucleated RBC % Platelet Estimate Large Platelets Anisocytosis Target Cells Ovalocytes [place] Cells Schistocytes Sodium 137 Potassium 3.1 L Chloride 107 Carbon Dioxide 25 Anion Gap 5 BUN 28 H Creatinine 1.42 H Estim Creat Clear Calc 61 Estimated GFR 53 L Glucose 191 H POC Capillary Glucose 207 H 174 H Lactic Acid Calcium 8.3 L Phosphorus Magnesium Total Bilirubin AST ALT Alkaline Phosphatase Total Protein Albumin Lipase 04/24/25 04/24/25 04/24/25 18:29 19:16 19:31 WBC RBC Hgb Hct MCV MCH MCHC RDW Plt Count MPV Immature Gran % (Auto) Neut % (Auto) Lymph % (Auto) [place] % (Auto) Eos % (Auto) Baso % (Auto) Lymph # (Auto) [place] # (Auto) Eos # (Auto) Baso # (Auto) Abs Immat Gran (auto) Absolute Neuts (auto) Absolute Nucleated RBC Band Neutrophils % Nucleated RBC % Platelet Estimate Large Platelets Anisocytosis Target Cells Ovalocytes [place] Cells Schistocytes Sodium 135 L Potassium 3.6 Chloride 107 Carbon Dioxide 23 Anion Gap 5 BUN 26 H Creatinine 1.37 H Estim Creat Clear Calc 63 Estimated GFR 56 L Glucose 177 H POC Capillary Glucose 186 H 187 H Lactic Acid Calcium 8.3 L Phosphorus Magnesium Total Bilirubin AST ALT Alkaline Phosphatase Total Protein Albumin Lipase 04/24/25 04/24/25 04/24/25 21:39 22:54 23:40 WBC RBC Hgb Hct MCV MCH MCHC RDW Plt Count MPV Immature Gran % (Auto) Neut % (Auto) Lymph % (Auto) [place] % (Auto) Eos % (Auto) Baso % (Auto) Lymph # (Auto) [place] # (Auto) Eos # (Auto) Baso # (Auto) Abs Immat Gran (auto) Absolute Neuts (auto) Absolute Nucleated RBC Band Neutrophils % Nucleated RBC % Platelet Estimate Large Platelets Anisocytosis Target Cells Ovalocytes [place] Cells Schistocytes Sodium 134 L Potassium 3.3 L Chloride 107 Carbon Dioxide 22 Anion Gap 5 BUN 24 H Creatinine 1.20 Estim Creat Clear Calc 72 Estimated GFR > 60 Glucose 274 H POC Capillary Glucose 220 H 285 H Lactic Acid Calcium 7.9 L Phosphorus Magnesium Total Bilirubin AST ALT Alkaline Phosphatase Total Protein Albumin Lipase 04/25/25 04/25/25 04/25/25 00:25 01:54 03:21 WBC RBC Hgb Hct MCV MCH MCHC RDW Plt Count MPV Immature Gran % (Auto) Neut % (Auto) Lymph % (Auto) [place] % (Auto) Eos % (Auto) Baso % (Auto) Lymph # (Auto) [place] # (Auto) Eos # (Auto) Baso # (Auto) Abs Immat Gran (auto) Absolute Neuts (auto) Absolute Nucleated RBC Band Neutrophils % Nucleated RBC % Platelet Estimate Large Platelets Anisocytosis Target Cells Ovalocytes [place] Cells Schistocytes Sodium Potassium Chloride Carbon Dioxide Anion Gap BUN Creatinine Estim Creat Clear Calc Estimated GFR Glucose POC Capillary Glucose 257 H 191 H 188 H Lactic Acid Calcium Phosphorus Magnesium Total Bilirubin AST ALT Alkaline Phosphatase Total Protein Albumin Lipase 04/25/25 04/25/25 04/25/25 04:23 05:34 06:46 WBC 18.5 H RBC 4.66 Hgb 9.7 L Hct 32.1 L MCV 68.9 L MCH 20.8 L MCHC 30.2 L RDW 19.2 H Plt Count 443 H MPV 9.8 Immature Gran % (Auto) 1.0 H Neut % (Auto) 83.4 H Lymph % (Auto) 7.3 L [place] % (Auto) 8.2 Eos % (Auto) 0.0 Baso % (Auto) 0.1 L Lymph # (Auto) 1.35 [place] # (Auto) 1.5 H Eos # (Auto) 0.0 Baso # (Auto) 0.0 Abs Immat Gran (auto) 0.19 H Absolute Neuts (auto) 15.5 H Absolute Nucleated RBC 0.000 Band Neutrophils % Not Reportable Nucleated RBC % 0.0 Platelet Estimate Increased Large Platelets Present Anisocytosis 2+ Target Cells Occasional Ovalocytes 1+ [place] Cells 2+ Schistocytes Rare Sodium 137 Potassium 4.1 Chloride 111 H Carbon Dioxide 22 Anion Gap 4 BUN 20 Creatinine 1.28 Estim Creat Clear Calc 68 Estimated GFR 60 Glucose 208 H POC Capillary Glucose 208 H 235 H Lactic Acid 1.5 Calcium 7.9 L Phosphorus 1.3 L Magnesium 1.7 Total Bilirubin 0.3 AST 17 ALT 7 Alkaline Phosphatase 108 Total Protein 5.8 L Albumin 2.4 L Lipase 36 04/25/25 04/25/25 04/25/25 07:35 08:13 08:30 WBC RBC Hgb Hct MCV MCH MCHC RDW Plt Count MPV Immature Gran % (Auto) Neut % (Auto) Lymph % (Auto) [place] % (Auto) Eos % (Auto) Baso % (Auto) Lymph # (Auto) [place] # (Auto) Eos # (Auto) Baso # (Auto) Abs Immat Gran (auto) Absolute Neuts (auto) Absolute Nucleated RBC Band Neutrophils % Nucleated RBC % Platelet Estimate Large Platelets Anisocytosis Target Cells Ovalocytes [place] Cells Schistocytes Sodium 137 Potassium 3.7 Chloride 110 H Carbon Dioxide 23 Anion Gap 4 BUN 18 Creatinine 1.26 Estim Creat Clear Calc 69 Estimated GFR > 60 Glucose 214 H POC Capillary Glucose 252 H 223 H Lactic Acid Calcium 8.0 L Phosphorus Magnesium Total Bilirubin AST ALT Alkaline Phosphatase Total Protein Albumin Lipase 04/25/25 09:11 WBC RBC Hgb Hct MCV MCH MCHC RDW Plt Count MPV Immature Gran % (Auto) Neut % (Auto) Lymph % (Auto) [place] % (Auto) Eos % (Auto) Baso % (Auto) Lymph # (Auto) [place] # (Auto) Eos # (Auto) Baso # (Auto) Abs Immat Gran (auto) Absolute Neuts (auto) Absolute Nucleated RBC Band Neutrophils % Nucleated RBC % Platelet Estimate Large Platelets Anisocytosis Target Cells Ovalocytes [place] Cells Schistocytes Sodium Potassium Chloride Carbon Dioxide Anion Gap BUN Creatinine Estim Creat Clear Calc Estimated GFR Glucose POC Capillary Glucose 203 H Lactic Acid Calcium Phosphorus Magnesium Total Bilirubin AST ALT Alkaline Phosphatase Total Protein Albumin Lipase
--- NOTE | 2025-04-25 11:57 | WPDHPUPDATE1 ---
History and Physical Update Update Date/Time: 04/25/25 11:57 History and Physical has been reviewed, including an updated exam of the patient. There are NO changes in the patient's condition. Risks, benefits, and alternatives have been discussed and questions answered. Patient agrees to proceed with procedure.
[2025-04-25 13:08] LABS: Anion Gap 6 mmol/L (4-12); Blood Urea Nitrogen 17 mg/dL (9-20); Calcium 7.4 mg/dL (8.4-10.2); Carbon Dioxide 19 mmol/L (22-30); Chloride 109 mmol/L (98-107); Estimated CRCL calculation 77 ml/min; Estimated Glomerular Filt Rate > 60; Glucose 215 mg/dL (65-110); Potassium 3.8 mmol/L (3.4-5.0); Sodium 134 mmol/L (137-145)
[2025-04-25] MEDS: LACTATED RINGERS 1,000 ML 30 ML IV CONT (14:00)
--- NOTE | 2025-04-25 14:37 | WPDANESPN ---
Anes - Prog Note Post-Op Date/Time: 04/25/25 14:37 Cardiovascular status: normal Respiratory status: normal Airway patency: baseline Mental status: baseline Vital Signs: Last Vital Signs Temp 36.7 C 04/25/25 10:00 Pulse 107 H 04/25/25 13:44 Resp 15 04/25/25 13:44 BP 132/81 04/25/25 13:44 Pulse Ox 100 04/25/25 13:44 O2 Del Method Room Air 04/25/25 12:00 O2 Flow Rate 8 04/24/25 17:41 Pain Score (VAS): 3 I/O: Intake & Output 04/24/25 04/25/25 04/25/25 23:59 07:59 15:59 Intake Total 1734.2 1290.7 272.1 Output Total 1500 700 Balance 234.2 590.7 272.1 Laboratory Tests 04/25/25 04:23 04/25/25 12:10 04/24/25 04/24/25 04/24/25 14:41 14:47 16:00 WBC RBC Hgb Hct MCV MCH MCHC RDW Plt Count MPV Immature Gran % (Auto) Neut % (Auto) Lymph % (Auto) [place] % (Auto) Eos % (Auto) Baso % (Auto) Lymph # (Auto) [place] # (Auto) Eos # (Auto) Baso # (Auto) Abs Immat Gran (auto) Absolute Neuts (auto) Absolute Nucleated RBC Band Neutrophils % Nucleated RBC % Platelet Estimate Large Platelets Anisocytosis Target Cells Ovalocytes [place] Cells Schistocytes Sodium 137 Potassium 3.1 L Chloride 107 Carbon Dioxide 25 Anion Gap 5 BUN 28 H Creatinine 1.42 H Estim Creat Clear Calc 61 Estimated GFR 53 L Glucose 191 H POC Capillary Glucose 221 H 207 H Lactic Acid Calcium 8.3 L Phosphorus Magnesium Total Bilirubin AST ALT Alkaline Phosphatase Total Protein Albumin Lipase 04/24/25 04/24/25 04/24/25 17:40 18:29 19:16 WBC RBC Hgb Hct MCV MCH MCHC RDW Plt Count MPV Immature Gran % (Auto) Neut % (Auto) Lymph % (Auto) [place] % (Auto) Eos % (Auto) Baso % (Auto) Lymph # (Auto) [place] # (Auto) Eos # (Auto) Baso # (Auto) Abs Immat Gran (auto) Absolute Neuts (auto) Absolute Nucleated RBC Band Neutrophils % Nucleated RBC % Platelet Estimate Large Platelets Anisocytosis Target Cells Ovalocytes [place] Cells Schistocytes Sodium 135 L Potassium 3.6 Chloride 107 Carbon Dioxide 23 Anion Gap 5 BUN 26 H Creatinine 1.37 H Estim Creat Clear Calc 63 Estimated GFR 56 L Glucose 177 H POC Capillary Glucose 174 H 186 H Lactic Acid Calcium 8.3 L Phosphorus Magnesium Total Bilirubin AST ALT Alkaline Phosphatase Total Protein Albumin Lipase 04/24/25 04/24/25 04/24/25 19:31 21:39 22:54 WBC RBC Hgb Hct MCV MCH MCHC RDW Plt Count MPV Immature Gran % (Auto) Neut % (Auto) Lymph % (Auto) [place] % (Auto) Eos % (Auto) Baso % (Auto) Lymph # (Auto) [place] # (Auto) Eos # (Auto) Baso # (Auto) Abs Immat Gran (auto) Absolute Neuts (auto) Absolute Nucleated RBC Band Neutrophils % Nucleated RBC % Platelet Estimate Large Platelets Anisocytosis Target Cells Ovalocytes [place] Cells Schistocytes Sodium Potassium Chloride Carbon Dioxide Anion Gap BUN Creatinine Estim Creat Clear Calc Estimated GFR Glucose POC Capillary Glucose 187 H 220 H 285 H Lactic Acid Calcium Phosphorus Magnesium Total Bilirubin AST ALT Alkaline Phosphatase Total Protein Albumin Lipase 04/24/25 04/25/25 04/25/25 23:40 00:25 01:54 WBC RBC Hgb Hct MCV MCH MCHC RDW Plt Count MPV Immature Gran % (Auto) Neut % (Auto) Lymph % (Auto) [place] % (Auto) Eos % (Auto) Baso % (Auto) Lymph # (Auto) [place] # (Auto) Eos # (Auto) Baso # (Auto) Abs Immat Gran (auto) Absolute Neuts (auto) Absolute Nucleated RBC Band Neutrophils % Nucleated RBC % Platelet Estimate Large Platelets Anisocytosis Target Cells Ovalocytes [place] Cells Schistocytes Sodium 134 L Potassium 3.3 L Chloride 107 Carbon Dioxide 22 Anion Gap 5 BUN 24 H Creatinine 1.20 Estim Creat Clear Calc 72 Estimated GFR > 60 Glucose 274 H POC Capillary Glucose 257 H 191 H Lactic Acid Calcium 7.9 L Phosphorus Magnesium Total Bilirubin AST ALT Alkaline Phosphatase Total Protein Albumin Lipase 04/25/25 04/25/25 04/25/25 03:21 04:23 05:34 WBC 18.5 H RBC 4.66 Hgb 9.7 L Hct 32.1 L MCV 68.9 L MCH 20.8 L MCHC 30.2 L RDW 19.2 H Plt Count 443 H MPV 9.8 Immature Gran % (Auto) 1.0 H Neut % (Auto) 83.4 H Lymph % (Auto) 7.3 L [place] % (Auto) 8.2 Eos % (Auto) 0.0 Baso % (Auto) 0.1 L Lymph # (Auto) 1.35 [place] # (Auto) 1.5 H Eos # (Auto) 0.0 Baso # (Auto) 0.0 Abs Immat Gran (auto) 0.19 H Absolute Neuts (auto) 15.5 H Absolute Nucleated RBC 0.000 Band Neutrophils % Not Reportable Nucleated RBC % 0.0 Platelet Estimate Increased Large Platelets Present Anisocytosis 2+ Target Cells Occasional Ovalocytes 1+ [place] Cells 2+ Schistocytes Rare Sodium 137 Potassium 4.1 Chloride 111 H Carbon Dioxide 22 Anion Gap 4 BUN 20 Creatinine 1.28 Estim Creat Clear Calc 68 Estimated GFR 60 Glucose 208 H POC Capillary Glucose 188 H 208 H Lactic Acid 1.5 Calcium 7.9 L Phosphorus 1.3 L Magnesium 1.7 Total Bilirubin 0.3 AST 17 ALT 7 Alkaline Phosphatase 108 Total Protein 5.8 L Albumin 2.4 L Lipase 36 04/25/25 04/25/25 04/25/25 06:46 07:35 08:13 WBC RBC Hgb Hct MCV MCH MCHC RDW Plt Count MPV Immature Gran % (Auto) Neut % (Auto) Lymph % (Auto) [place] % (Auto) Eos % (Auto) Baso % (Auto) Lymph # (Auto) [place] # (Auto) Eos # (Auto) Baso # (Auto) Abs Immat Gran (auto) Absolute Neuts (auto) Absolute Nucleated RBC Band Neutrophils % Nucleated RBC % Platelet Estimate Large Platelets Anisocytosis Target Cells Ovalocytes [place] Cells Schistocytes Sodium Potassium Chloride Carbon Dioxide Anion Gap BUN Creatinine Estim Creat Clear Calc Estimated GFR Glucose POC Capillary Glucose 235 H 252 H 223 H Lactic Acid Calcium Phosphorus Magnesium Total Bilirubin AST ALT Alkaline Phosphatase Total Protein Albumin Lipase 04/25/25 04/25/25 04/25/25 08:30 09:11 10:19 WBC RBC Hgb Hct MCV MCH MCHC RDW Plt Count MPV Immature Gran % (Auto) Neut % (Auto) Lymph % (Auto) [place] % (Auto) Eos % (Auto) Baso % (Auto) Lymph # (Auto) [place] # (Auto) Eos # (Auto) Baso # (Auto) Abs Immat Gran (auto) Absolute Neuts (auto) Absolute Nucleated RBC Band Neutrophils % Nucleated RBC % Platelet Estimate Large Platelets Anisocytosis Target Cells Ovalocytes [place] Cells Schistocytes Sodium 137 Potassium 3.7 Chloride 110 H Carbon Dioxide 23 Anion Gap 4 BUN 18 Creatinine 1.26 Estim Creat Clear Calc 69 Estimated GFR > 60 Glucose 214 H POC Capillary Glucose 203 H 175 H Lactic Acid Calcium 8.0 L Phosphorus Magnesium Total Bilirubin AST ALT Alkaline Phosphatase Total Protein Albumin Lipase 04/25/25 04/25/25 04/25/25 11:18 12:10 12:20 WBC RBC Hgb Hct MCV MCH MCHC RDW Plt Count MPV Immature Gran % (Auto) Neut % (Auto) Lymph % (Auto) [place] % (Auto) Eos % (Auto) Baso % (Auto) Lymph # (Auto) [place] # (Auto) Eos # (Auto) Baso # (Auto) Abs Immat Gran (auto) Absolute Neuts (auto) Absolute Nucleated RBC Band Neutrophils % Nucleated RBC % Platelet Estimate Large Platelets Anisocytosis Target Cells Ovalocytes [place] Cells Schistocytes Sodium 134 L Potassium 3.8 Chloride 109 H Carbon Dioxide 19 L Anion Gap 6 BUN 17 Creatinine 1.13 Estim Creat Clear Calc 77 Estimated GFR > 60 Glucose 215 H POC Capillary Glucose 219 H 236 H Lactic Acid Calcium 7.4 L Phosphorus Magnesium Total Bilirubin AST ALT Alkaline Phosphatase Total Protein Albumin Lipase 04/25/25 13:23 WBC RBC Hgb Hct MCV MCH MCHC RDW Plt Count MPV Immature Gran % (Auto) Neut % (Auto) Lymph % (Auto) [place] % (Auto) Eos % (Auto) Baso % (Auto) Lymph # (Auto) [place] # (Auto) Eos # (Auto) Baso # (Auto) Abs Immat Gran (auto) Absolute Neuts (auto) Absolute Nucleated RBC Band Neutrophils % Nucleated RBC % Platelet Estimate Large Platelets Anisocytosis Target Cells Ovalocytes [place] Cells Schistocytes Sodium Potassium Chloride Carbon Dioxide Anion Gap BUN Creatinine Estim Creat Clear Calc Estimated GFR Glucose POC Capillary Glucose 240 H Lactic Acid Calcium Phosphorus Magnesium Total Bilirubin AST ALT Alkaline Phosphatase Total Protein Albumin Lipase Patient Feedback: Patient satisfied with anesthetic care.
--- NOTE | 2025-04-25 14:38 | P.PNAN_ITS ---
Anes - Eval Final PreProcedure Day of Procedure 04/25/25 14:38 Patient weight: normal Heart: regular rate and rhythm Lungs: clear to auscultation Airway: Mallampati scale class II Neurological: alert and oriented Last oral intake: >/= 8 hours ASA classification: IV Emergent: no Anesthetic plan: proceed Anesthesia type and monitoring: general LMA and standard monitoring Results Review: All pre-operative results and documents have been reviewed as part of the pre- operative evaluation. Informed Consent: The patient's anesthetic plan and its attendant risks and benefits were discussed with the patient/family/POA. Questions were solicited and answers provided to the satisfaction of the patient/family/POA.
--- NOTE | 2025-04-25 15:56 | S_PTH ---
PATIENT: Dejan Sevilla LOC: [id number] U#:[id number] AGE/SX: 49/M ROOM: 249 RE04/23/[address]: Mary Cartagena MD : [id number] BED: 01 DIS: 05/01/2025 SPEC #: [id number] RECD: 04/26/25 07:52 STATUS: MAIA REQ #: [id number] ANDREZ: 04/25/25 15:[address]: Raul Kuo DEPT: [facility] Surgical RECD BY: Apolonia Valladares ENTERED: 04/26/25 07:52 SP TYPE: Surgical OTHR DR: Altagracia Mclean, MD Wili Ashby MD Tissues: A - Leg Procedures: Hematoxylin and Eosin Stain Gross and Microscopic Level 5 Decalcification
--- NOTE | 2025-04-25 17:00 | W.PM.PROC2 ---
Procedure Note - Detailed Date of Procedure 04/25/25 Pre-op Diagnosis Right foot necrotizing fasciitis, diabetic foot infection, diabetic ketoacidosis Post-op Diagnosis Same Procedure Performed Right below-knee amputation Surgeon Raul Kuo, DO Anesthesia General Indications necrotizing soft tissue infection involving right foot and ankle Findings transtibial right below-knee amputation performed. Patient had adequate blood flow. Infection was involving the right foot and ankle region, but there did not appear to be any more proximal leg involvement. Description of Procedure Procedure as well as risks, benefits, and alternatives were discussed with the patient. Written consent was obtained and placed in chart prior to procedure. Patient was brought back to surgical suite. He was placed supine on operating table. Time-out was done to confirm patient and procedure. He was then intubated by the anesthesia department. His right leg was prepped and draped in sterile fashion using Betadine prep. The Esmarch was used to exsanguinate all of the blood out of the right lower leg from ankle up to the knee. The tourniquet was then inflated. An incision was then made over the skin with a longer posterior flap using a 10 blade scalpel. The incision was carried down using sharp dissection with the scalpel all the way through the fascia and anterior compartment muscles. The lateral compartment muscles were also transected using the 10 blade scalpel. The periosteal elevator was then used to dissect back on the tibia. The tibia was then transected using the Chitra saw. I then continued dissecting through the posterior compartment and transecting the vascular bundles using the 10 blade scalpel. 3-0 Vicryl [id number] sutures were then used to ligate the vessels. The fibula was then identified and the periosteal elevator was used to dissect about 1 cm proximal to the tibial transection level and then the fibula was transected using the [place] saw. The remaining posterior muscle was transected using the amputation knife. The tourniquet was then let down and there were further bleeding vessels that were identified. The tourniquet was then placed back for several more minutes while the remaining vessels were ligated with 3-0 Vicryl [id number] sutures. The tourniquet was then let down again and no other significant bleeding was identified. The cervical nerve was then sharply cut with Metzenbaum scissors and allowed to retract into the subcu space. The anterior edge of the tibia was then beveled using the [place] saw and then the rasp was used to help smooth out the edges of the bone to prevent any sharp angles. The wound bed was then irrigated with sterile saline. Electrocautery was then used for hemostasis for any other small vessels that were identified bleeding. The posterior flap appeared to come over the tibia with adequate tissue coverage. The fascia was then reapproximated to bring the posterior flap over the tibia using 0 Vicryl simple interrupted sutures. The skin edges appeared to come together without any significant tension. The skin was then approximated using a skin stapler. Xeroform gauze was then applied followed by fluffed gauze, ABD pads, Kerlix wrap, and 6 in Harris wrap. The right leg was then placed in the immobilizer. The patient was then awakened from anesthesia, extubated, and transferred to recovery. Estimated Blood Loss 200 Urine Output 700 Pathology Yes ( Right leg) Complications No immediate complications Condition Critical Disposition ICU [facility] Billing Surgery - Charge Forward: Surgery Billing
[2025-04-25] MEDS: HYDROmorphone HCL INJ (*CRX) 1 MG/ML SYR 0.25 MG IV PUSH ×6 (17:03→17:28)
[2025-04-25] MEDS: HYDROmorphone HCL INJ (*CRX) 1 MG/ML SYR 0.5 MG IV PUSH (17:34)
--- NOTE | 2025-04-25 17:50 | PC.NURSE ---
Updated Dr Santiago on patient status. CUrrent POC glucose is 204. Received order to give 25 units lantus now and 2 hours later stop insulin gtt. Start hhigh dose sliding scale ACHS. And to start diabetic diet. All orders read back and verified.
[2025-04-25] MEDS: HYDROmorphone HCL INJ (*CRX) 1 MG/ML SYR IV PUSH ×2 (18:00→21:03)
[2025-04-25] MEDS: INSULIN GLARGINE (*BKC) 100 UNITS/ML 35 UNITS SUB-Q (18:01)
[2025-04-25] MEDS: GABAPENTIN 300 MG CAPSULE PO (18:02)
--- NOTE | 2025-04-25 19:22 | PC.NURSE ---
Received order that if OK with surgery to downgrade pt after insulin gtt is turned off. Dr Medrano ok with plan.
[2025-04-25] MEDS: SENNA/DOCUSATE SODIUM TABLET 2 TAB PO (20:57)
[2025-04-25] MEDS: INSULIN ASPART (*BKC) 100 UNITS/ML SUB-Q (21:07)
[2025-04-26] VITALS: PULSE 102
[2025-04-26] MEDS: oxyCODONE/ACETAMINOPHEN (*CRX) 10-325 MG TABLET 1 TAB PO ×4 (00:21→20:55)
--- NOTE | 2025-04-26 02:35 | PC.NURSE ---
0227 Report given to AUGIE Gee.
[2025-04-26 04:41] LABS: Hematocrit 30.3 % (42.0-52.0); Hemoglobin 9.0 g/dL (14.0-18.0); Mean Corpuscular HGB Conc 29.7 g/dl (32-36); Mean Corpuscular Hemoglobin 21.1 pg (26-34); Mean Corpuscular Volume 71.1 fl (80-100); Platelet Count Result 428 k/mm3 (150-375); Red Blood Count 4.26 M/mm3 (4.6-6.20); White Blood Count 15.2 K/mm3 (4.5-10.0)
[2025-04-26] MEDS: metroNIDAZOLE 500 MG/ISO 100ML 500 MG/100 ML BAG 100 MG IVPB (06:32)
[2025-04-26] MEDS: INSULIN ASPART (*BKC) 100 UNITS/ML SUB-Q ×2 (08:31→21:04)
[2025-04-26] MEDS: ENOXAPARIN 40 MG/0.4 ML SYRINGE SUB-Q (08:31)
[2025-04-26] MEDS: FAMOTIDINE 20 MG/2 ML VIAL IV PUSH ×2 (08:32→20:39)
[2025-04-26] MEDS: GABAPENTIN 300 MG CAPSULE PO ×3 (08:32→17:40)
[2025-04-26 08:37] VITALS: BP 135/90; PULSE 111; RESP 20; TEMP 36.9; O2SAT 96
[2025-04-26] MEDS: CEFEPIME 2 GM in SODIUM CHLORIDE 0.9% IV 50 ML 100 ML IVPB ×2 (08:47→20:39)
[2025-04-26] MEDS: LINEZOLID 600 MG/300 ML 600 MG/300 ML SOLN 300 MG IVPB ×2 (08:47→20:45)
[2025-04-26] MEDS: INSULIN GLARGINE (*BKC) 100 UNITS/ML 10 UNITS SUB-Q (08:48)
--- NOTE | 2025-04-26 09:11 | P.PNIM_ITS ---
Assessment and Plan Assessment and Plan (1) DKA (diabetic ketoacidosis): Code(s): E11.10 - Type 2 diabetes mellitus with ketoacidosis without coma Status: Acute Assessment and Plan: 04/23: Patient presented the ED with hyperglycemia, blood sugars of 621, CO2 < 5, elevated beta hydroxybutyrate. Diagnosed with DKA in the ER, was given 4 L IV fluid bolus, started on insulin drip per DKA protocol and transferred to the ICU -patient remains on insulin infusion along with the fluids per DKA protocol -I giving 1 L IV fluid bolus this morning -will keep patient on insulin infusion since he is going for surgery today -hemoglobin A1c of 11.2, this admission -dietitian and community educator have been consulted -04/26: patient was transition to long-acting insulin, Lantus and high-dose sliding scale along with diabetic diet overnight. Will increase Lantus starting today and will given additional does of Lantus 10 units x 1 now (2) Sepsis: Code(s): A41.9 - Sepsis, unspecified organism Status: Acute Assessment and Plan: Patient presented with fall smelling necrotic ulcer on the plantar aspect of his right big toe with purulent drainage. WBC 30.7 on admission, patient was given 1 dose of clindamycin -04/23: blood and wound cultures have been obtained and pending -04/26: Continue antibiotics as above cefepime, Flagyl and linezolid (04/23) (3) Necrotizing fasciitis: Code(s): M72.6 - Necrotizing fasciitis Status: Acute Assessment and Plan: Necrotizing fasciitis likely of the right great toe, extending over 1st and 2nd metatarsal on the right foot. X-ray of the foot showed soft tissue gas concerning for necrotizing fasciitis -antibiotics as above -patient to the OR sometime today 04/24: Status post Right midfoot amputation with placement of wound VAC 04/25: Right below-knee amputation -surgery following the patient, pain well controlled (4) Acute kidney injury superimposed on chronic kidney disease: Code(s): N17.9 - Acute kidney failure, unspecified; N18.9 - Chronic kidney disease, unspecified Status: Acute Assessment and Plan: Acute on chronic renal failure, creatinine was 2.44 on admission (baseline 1.40- 1.90) -patient adequately fluid-resuscitated -urine output has been adequate -creatinine has normalized -continue to monitor urine output, renal function electrolytes Plan DVT prophylaxis: Lovenox Stress ulcer prophylaxis: Famotidine Nutrition: Diabetic Code Status: Full code Discussed with patient updated his condition and plan of care. Due to a high probability of clinically significant, life threatening deterioration, the patient required my highest level of preparedness to intervene emergently and I personally spent this critical care time directly and personally managing the patient. This critical care time included obtaining a history; examining the patient; pulse oximetry; ordering and review of studies; arranging urgent treatment with development of a management plan; evaluation of patient's response to treatment; frequent reassessment; and discussions with other providers. It was exclusive of separately billable procedures and treating other patients and teaching time. Please see Assessment and Plan section and the rest of the note for further information on patient assessment and treatment This dictation may have been done utilizing a voice recognition system. Attempts have been made to correct errors. However, there may be uncorrected grammatical, spelling, and recognitions errors present. Subjective Date/time seen: 04/26/25 09:11 Interval history: Reason for consult: Reason for consult: Necrotizing fasciitis, diabetic ketoacidosis, generalized weakness, nausea, vomiting, infected foot also along with foot pain, shortness of breath and hyperglycemia 04/24: Right midfoot amputation with placement of wound VAC 04/25: Right below-knee amputation 04/26/2025: Patient being seen for the hospitalist team Patient seen examined the ICU, is awake, alert, oriented. Pain is well controlled patient tolerating diet. Adequate urine output, hemodynamically stable, afebrile. WBC count trending down Off insulin infusion, he was transition to long-acting insulin Lantus and sliding scale insulin and diabetic diet. Review of Systems Review of Systems: All systems reviewed & are unremarkable except as noted in HPI and below Exam Narrative: General: Pleasant gentleman, in no acute distress HEENT:? Pupils equal and reactive, sclera is clear, moist oral mucous Neck:? Supple Respiratory:? Clear to auscultation bilaterally, no wheeze, adequate air entry Cardiac:? S1-S2 normal, regular rate and rhythm Abdomen:? Soft, nontender, nondistended, normoactive bowel sounds Extremities:? Right below-knee amputation, brace in place Neuro:? Patient is awake, alert, oriented, answers to questions appropriately and follows simple commands Skin:? As above Psych:? Normal mentation and affect Objective Data Vital Signs Vital Signs: Vital Signs - 24 hr 04/25/25 10:00 04/25/25 10:00 04/25/25 11:00 Temperature 98.1 F Pulse Rate 113 H 109 H 100 Respiratory Rate 23 H 22 H Blood Pressure 161/93 H 156/94 H Pulse Oximetry 99 100 Oxygen Delivery Oxygen Flow Rate 04/25/25 12:00 04/25/25 12:00 04/25/25 12:00 Temperature Pulse Rate 98 100 Respiratory Rate 20 Blood Pressure 130/80 Pulse Oximetry 100 Oxygen Delivery Room Air Oxygen Flow Rate 04/25/25 13:44 04/25/25 14:45 04/25/25 16:50 Temperature 98.8 F 98.1 F Pulse Rate 107 H 103 H 104 H Respiratory Rate 15 16 18 Blood Pressure 132/81 138/80 138/86 Pulse Oximetry 100 100 100 Oxygen Delivery Room Air Simple Face Mask Oxygen Flow Rate 8 04/25/25 17:05 04/25/25 17:20 04/25/25 17:47 Temperature Pulse Rate 102 H 101 H 100 Respiratory Rate 13 15 95 H Blood Pressure 138/83 134/79 127/79 Pulse Oximetry 100 98 100 Oxygen Delivery Room Air Room Air Oxygen Flow Rate 04/25/25 18:00 04/25/25 18:00 04/25/25 18:17 Temperature Pulse Rate 114 H 102 H Respiratory Rate 14 Blood Pressure 133/80 Pulse Oximetry 95 Oxygen Delivery Room Air Oxygen Flow Rate 04/25/25 19:17 04/25/25 20:00 04/25/25 20:00 Temperature Pulse Rate 107 H 93 93 Respiratory Rate 18 Blood Pressure 114/78 Pulse Oximetry 97 Oxygen Delivery Room Air Oxygen Flow Rate 04/25/25 21:00 04/25/25 22:00 04/26/25 00:00 Temperature 97.4 F L Pulse Rate 93 91 102 H Respiratory Rate 20 Blood Pressure 113/79 Pulse Oximetry 96 Oxygen Delivery Oxygen Flow Rate 04/26/25 08:37 Temperature 98.5 F Pulse Rate 111 H Respiratory Rate 20 Blood Pressure 135/90 Pulse Oximetry 96 Oxygen Delivery Oxygen Flow Rate Intake/Output Intake/Output: Intake & Output 04/23/25 04/24/25 04/25/25 04/26/25 23:59 23:59 23:59 23:59 Intake Total 4108.4 6481.7 4903.7 580 Output Total 4400 3050 Balance 4108.4 2081.7 1853.7 580 Meds/Results Medications: Active Medications Generic Name Dose Route Start Last Admin Trade Name Freq PRN Reason Stop Dose Admin Acetaminophen 650 mg 04/23/25 22:18 Acetaminophen 325 Mg Tablet PO Q4H PRN Mild Pain (1-3) or Fever Dextrose 12.5 gm 04/25/25 21:38 Dextrose 50% 25 Gm/50 Ml Syringe IV PUSH PRN PRN Hypoglycemia Protocol Enoxaparin Sodium 40 mg 04/24/25 09:00 04/26/25 08:31 Enoxaparin 40 Mg/0.4 Ml Syringe SUB-Q 40 mg DAILY KEEGAN Administration Famotidine 20 mg 04/24/25 22:25 04/26/25 08:32 Famotidine 20 Mg/2 Ml Vial IV PUSH 20 mg Q12HR KEEGAN Administration Gabapentin 300 mg 04/25/25 17:32 04/26/25 08:32 Gabapentin 300 Mg Capsule PO 300 mg TID KEEGAN Administration Glucagon 1 mg 04/25/25 21:38 Glucagon For Inj 1 Mg Vial IM PRN PRN Hypoglycemia Protocol Glucose 15 gm 04/25/25 21:38 Glucose Oral Gel 15 Gm Of Glucse In 37.5 Gm Tube PO PRN PRN Hypoglycemia Protocol Hydralazine HCl 10 mg 04/24/25 04:41 Hydralazine Hcl 20 Mg/Ml Vial IV PUSH Q8H PRN Blood Pressure - High Hydromorphone HCl 1 mg 04/25/25 17:32 04/25/25 21:03 Hydromorphone Hcl Inj (*Crx) 1 Mg/Ml Syr IV PUSH 1 mg Q2H PRN Administration Breakthrough Pain Rated 7-10 or NPO Hydromorphone HCl 0.5 mg 04/25/25 17:32 04/25/25 17:34 Hydromorphone Hcl Inj (*Crx) 1 Mg/Ml Syr IV PUSH 0.5 mg Q2H PRN Administration Breakthrough Pain Rated 4-6 or NPO Metronidazole 500 mg in 100 mls @ 100 mls/hr 04/24/25 05:00 04/26/25 06:32 Flagyl 500 Mg/Iso Soln 100 Ml IVPB 100 mls/hr Q8HR KEEGAN Administration Linezolid 600 mg in 300 mls @ 300 mls/hr 04/24/25 21:00 04/26/25 08:47 Zyvox IVPB 300 mls/hr Q12HR KEEGAN Administration Ibuprofen 800 mg in 200 mls @ 400 mls/hr 04/25/25 17:32 Caldolor 800 Mg/200 Ml IVPB Q6H PRN Breakthrough Pain Rated 1-3 or NPO Dextrose 1,000 mls @ 100 mls/hr 04/25/25 21:38 Dextrose 5% 1,000 Ml IVPB PRN PRN Hypoglycemia Protocol Cefepime HCl 2 gm/ Sodium 50 mls @ 100 mls/hr 04/26/25 09:00 04/26/25 08:47 Chloride IVPB 100 mls/hr Q12HR KEEGAN Administration Insulin Aspart 4 - 8 units 04/26/25 08:00 04/26/25 08:31 Insulin Aspart (*Bkc) 100 Units/Ml SUB-Q 6 units TIDWM KEEGAN Administration Protocol Insulin Aspart 2 - 4 units 04/25/25 21:00 04/25/25 21:07 Insulin Aspart (*Bkc) 100 Units/Ml SUB-Q 2 units HS KEEGAN Administration Protocol Insulin Glargine 45 units 04/26/25 21:00 Insulin Glargine (*Bkc) 100 Units/Ml SUB-Q HS KEEGAN Naloxone HCl 0.1 mg 04/25/25 17:32 Naloxone Hcl 0.4 Mg/Ml Vial IV PUSH Q2M PRN Opiate Reversal Ondansetron HCl 4 mg 04/24/25 04:47 04/24/25 18:23 Ondansetron Inj 4 Mg/2 Ml Vial IV PUSH 4 mg Q4H PRN Administration Nausea And Vomiting Oxycodone/Acetaminophen 1 tablet 04/25/25 17:32 Oxycodone/Acetaminophen (*Crx) 5-325 Mg Tablet PO Q4H PRN Pain Rated 4-6 Oxycodone/Acetaminophen 1 tab 04/25/25 17:32 04/26/25 06:47 Oxycodone/Acetaminophen (*Crx) 10-325 Mg Tablet PO 1 tab Q6H PRN Administration Pain Rated 7-10 Senna/Docusate Sodium 2 tab 04/25/25 21:00 04/25/25 20:57 Senna/Docusate Sodium Tablet PO 2 tab HS KEEGAN Administration Radiology Results: ITS Impressions Chest X-Ray 04/23/25 21:32 IMPRESSION: No acute pulmonary findings. Foot X-Ray 04/23/25 21:33 IMPRESSION: There is soft tissue gas adjacent to the first metatarsal. There are concern for osteomyelitis follow-up MRI is recommended. Labs Labs: Laboratory Results - last 24 hr 04/25/25 04/25/25 04/25/25 09:11 10:19 11:18 WBC RBC Hgb Hct MCV MCH MCHC RDW Plt Count MPV Sodium Potassium Chloride Carbon Dioxide Anion Gap BUN Creatinine Estim Creat Clear Calc Estimated GFR Glucose POC Capillary Glucose 203 H 175 H 219 H Lactic Acid Calcium 04/25/25 04/25/25 04/25/25 12:10 12:20 13:23 WBC RBC Hgb Hct MCV MCH MCHC RDW Plt Count MPV Sodium 134 L Potassium 3.8 Chloride 109 H Carbon Dioxide 19 L Anion Gap 6 BUN 17 Creatinine 1.13 Estim Creat Clear Calc 77 Estimated GFR > 60 Glucose 215 H POC Capillary Glucose 236 H 240 H Lactic Acid Calcium 7.4 L 04/25/25 04/25/25 04/25/25 14:42 16:58 17:44 WBC RBC Hgb Hct MCV MCH MCHC RDW Plt Count MPV Sodium Potassium Chloride Carbon Dioxide Anion Gap BUN Creatinine Estim Creat Clear Calc Estimated GFR Glucose POC Capillary Glucose 247 H 205 H 204 H Lactic Acid Calcium 04/25/25 04/25/25 04/26/25 19:00 20:55 04:33 WBC 15.2 H RBC 4.26 L Hgb 9.0 L Hct 30.3 L MCV 71.1 L MCH 21.1 L MCHC 29.7 L RDW 19.4 H Plt Count 428 H MPV 9.5 Sodium Potassium Chloride Carbon Dioxide Anion Gap BUN Creatinine Estim Creat Clear Calc Estimated GFR Glucose POC Capillary Glucose 224 H 263 H Lactic Acid 1.0 Calcium 04/26/25 07:27 WBC RBC Hgb Hct MCV MCH MCHC RDW Plt Count MPV Sodium Potassium Chloride Carbon Dioxide Anion Gap BUN Creatinine Estim Creat Clear Calc Estimated GFR Glucose POC Capillary Glucose 303 H Lactic Acid Calcium Quality VTE Prophylaxis VTE prophylaxis: pharmacologic ordered
--- NOTE | 2025-04-26 10:50 | PC.NURSE ---
This patient, Dejan Sevilla, was transferred to [ [id number]] on 04/26/25 at 1114. Personal belongings sent with patient. Report given my PM shift RN. Appropriate documentation sent with patient.
--- NOTE | 2025-04-26 11:39 | P.PNGS_ITS ---
Progress Note: A&P Assessment and Plan (1) Necrotizing fasciitis: Code(s): M72.6 - Necrotizing fasciitis Status: Acute Assessment and Plan: * s/p right BKA 04/25. Continue PT/OT. Will assess wound on Tuesday. * Continue strict blood glucose control. (2) Bacteremia: Code(s): R78.81 - Bacteremia Status: Acute Assessment and Plan: * Source treated with amputation, but might need continued antibiotics for bacteremia. Will defer to Hospitalist for antibiotic choice and duration. (3) Ulcer of right great toe due to diabetes mellitus: Code(s): E11.621 - Type 2 diabetes mellitus with foot ulcer; L97.519 - Non-pressure chronic ulcer of other part of right foot with unspecified severity Status: Acute (4) Cellulitis of foot associated with diabetes mellitus: Code(s): E11.628 - Type 2 diabetes mellitus with other skin complications; L03.119 - Cellulitis of unspecified part of limb Status: Acute Subjective Subjective Date/Time Seen: 04/26/25 11:39 Interval history: Pain controlled, but experiencing some phantom foot pains. Otherwise doing well. Exam Extrem: Other: Right BKA wound dressed and dressing appears dry. Knee immobilizer in place. Objective Data Vital Signs Vital Signs: Vital Signs - 24 hr 04/25/25 12:00 04/25/25 12:00 04/25/25 12:00 Temperature Pulse Rate 98 100 Respiratory Rate 20 Blood Pressure 130/80 Pulse Oximetry 100 Oxygen Delivery Room Air Oxygen Flow Rate 04/25/25 13:44 04/25/25 14:45 04/25/25 16:50 Temperature 98.8 F 98.1 F Pulse Rate 107 H 103 H 104 H Respiratory Rate 15 16 18 Blood Pressure 132/81 138/80 138/86 Pulse Oximetry 100 100 100 Oxygen Delivery Room Air Simple Face Mask Oxygen Flow Rate 8 04/25/25 17:05 04/25/25 17:20 04/25/25 17:47 Temperature Pulse Rate 102 H 101 H 100 Respiratory Rate 13 15 95 H Blood Pressure 138/83 134/79 127/79 Pulse Oximetry 100 98 100 Oxygen Delivery Room Air Room Air Oxygen Flow Rate 04/25/25 18:00 04/25/25 18:00 04/25/25 18:17 Temperature Pulse Rate 114 H 102 H Respiratory Rate 14 Blood Pressure 133/80 Pulse Oximetry 95 Oxygen Delivery Room Air Oxygen Flow Rate 04/25/25 19:17 04/25/25 20:00 04/25/25 20:00 Temperature Pulse Rate 107 H 93 93 Respiratory Rate 18 Blood Pressure 114/78 Pulse Oximetry 97 Oxygen Delivery Room Air Oxygen Flow Rate 04/25/25 21:00 04/25/25 22:00 04/26/25 00:00 Temperature 97.4 F L Pulse Rate 93 91 102 H Respiratory Rate 20 Blood Pressure 113/79 Pulse Oximetry 96 Oxygen Delivery Oxygen Flow Rate 04/26/25 08:37 Temperature 98.5 F Pulse Rate 111 H Respiratory Rate 20 Blood Pressure 135/90 Pulse Oximetry 96 Oxygen Delivery Oxygen Flow Rate Intake/Output Intake/Output: Intake & Output 04/23/25 04/24/25 04/25/25 04/26/25 23:59 23:59 23:59 23:59 Intake Total 4108.4 6481.7 4903.7 580 Output Total 4400 3050 Balance 4108.4 2081.7 1853.7 580 Meds/Results Medications: Active Medications Generic Name Dose Route Start Last Admin Trade Name Freq PRN Reason Stop Dose Admin Acetaminophen 650 mg 04/23/25 22:18 Acetaminophen 325 Mg Tablet PO Q4H PRN Mild Pain (1-3) or Fever Dextrose 12.5 gm 04/25/25 21:38 Dextrose 50% 25 Gm/50 Ml Syringe IV PUSH PRN PRN Hypoglycemia Protocol Enoxaparin Sodium 40 mg 04/24/25 09:00 04/26/25 08:31 Enoxaparin 40 Mg/0.4 Ml Syringe SUB-Q 40 mg DAILY KEEGAN Administration Famotidine 20 mg 04/24/25 22:25 04/26/25 08:32 Famotidine 20 Mg/2 Ml Vial IV PUSH 20 mg Q12HR KEEGAN Administration Gabapentin 300 mg 04/25/25 17:32 04/26/25 08:32 Gabapentin 300 Mg Capsule PO 300 mg TID KEEGAN Administration Glucagon 1 mg 04/25/25 21:38 Glucagon For Inj 1 Mg Vial IM PRN PRN Hypoglycemia Protocol Glucose 15 gm 04/25/25 21:38 Glucose Oral Gel 15 Gm Of Glucse In 37.5 Gm Tube PO PRN PRN Hypoglycemia Protocol Hydralazine HCl 10 mg 04/24/25 04:41 Hydralazine Hcl 20 Mg/Ml Vial IV PUSH Q8H PRN Blood Pressure - High Hydromorphone HCl 1 mg 04/25/25 17:32 04/25/25 21:03 Hydromorphone Hcl Inj (*Crx) 1 Mg/Ml Syr IV PUSH 1 mg Q2H PRN Administration Breakthrough Pain Rated 7-10 or NPO Hydromorphone HCl 0.5 mg 04/25/25 17:32 04/25/25 17:34 Hydromorphone Hcl Inj (*Crx) 1 Mg/Ml Syr IV PUSH 0.5 mg Q2H PRN Administration Breakthrough Pain Rated 4-6 or NPO Linezolid 600 mg in 300 mls @ 300 mls/hr 04/24/25 21:00 04/26/25 08:47 Zyvox IVPB 300 mls/hr Q12HR KEEGAN Administration Ibuprofen 800 mg in 200 mls @ 400 mls/hr 04/25/25 17:32 Caldolor 800 Mg/200 Ml IVPB Q6H PRN Breakthrough Pain Rated 1-3 or NPO Dextrose 1,000 mls @ 100 mls/hr 04/25/25 21:38 Dextrose 5% 1,000 Ml IVPB PRN PRN Hypoglycemia Protocol Cefepime HCl 2 gm/ Sodium 50 mls @ 100 mls/hr 04/26/25 09:00 04/26/25 08:47 Chloride IVPB 100 mls/hr Q12HR KEEGAN Administration Insulin Aspart 4 - 8 units 04/26/25 08:00 04/26/25 08:31 Insulin Aspart (*Bkc) 100 Units/Ml SUB-Q 6 units TIDWM [facility] Administration Protocol Insulin Aspart 2 - 4 units 04/25/25 21:00 04/25/25 21:07 Insulin Aspart (*Bkc) 100 Units/Ml SUB-Q 2 units HS [facility] Administration Protocol Insulin Glargine 45 units 04/26/25 21:00 Insulin Glargine (*Bkc) 100 Units/Ml SUB-Q HS KEEGAN Naloxone HCl 0.1 mg 04/25/25 17:32 Naloxone Hcl 0.4 Mg/Ml Vial IV PUSH Q2M PRN Opiate Reversal Ondansetron HCl 4 mg 04/24/25 04:47 04/24/25 18:23 Ondansetron Inj 4 Mg/2 Ml Vial IV PUSH 4 mg Q4H PRN Administration Nausea And Vomiting Oxycodone/Acetaminophen 1 tablet 04/25/25 17:32 Oxycodone/Acetaminophen (*Crx) 5-325 Mg Tablet PO Q4H PRN Pain Rated 4-6 Oxycodone/Acetaminophen 1 tab 04/25/25 17:32 04/26/25 06:47 Oxycodone/Acetaminophen (*Crx) 10-325 Mg Tablet PO 1 tab Q6H PRN Administration Pain Rated 7-10 Senna/Docusate Sodium 2 tab 04/25/25 21:00 04/25/25 20:57 Senna/Docusate Sodium Tablet PO 2 tab HS KEEGAN Administration Radiology Results: ITS Impressions Chest X-Ray 04/23/25 21:32 IMPRESSION: No acute pulmonary findings. Foot X-Ray 04/23/25 21:33 IMPRESSION: There is soft tissue gas adjacent to the first metatarsal. There are concern for osteomyelitis follow-up MRI is recommended. Labs Labs: Laboratory Results - last 24 hr 04/25/25 04/25/25 04/25/25 10:19 11:18 12:10 WBC RBC Hgb Hct MCV MCH MCHC RDW Plt Count MPV Sodium 134 L Potassium 3.8 Chloride 109 H Carbon Dioxide 19 L Anion Gap 6 BUN 17 Creatinine 1.13 Estim Creat Clear Calc 77 Estimated GFR > 60 Glucose 215 H POC Capillary Glucose 175 H 219 H Lactic Acid Calcium 7.4 L 04/25/25 04/25/25 04/25/25 12:20 13:23 14:42 WBC RBC Hgb Hct MCV MCH MCHC RDW Plt Count MPV Sodium Potassium Chloride Carbon Dioxide Anion Gap BUN Creatinine Estim Creat Clear Calc Estimated GFR Glucose POC Capillary Glucose 236 H 240 H 247 H Lactic Acid Calcium 04/25/25 04/25/25 04/25/25 16:58 17:44 19:00 WBC RBC Hgb Hct MCV MCH MCHC RDW Plt Count MPV Sodium Potassium Chloride Carbon Dioxide Anion Gap BUN Creatinine Estim Creat Clear Calc Estimated GFR Glucose POC Capillary Glucose 205 H 204 H 224 H Lactic Acid Calcium 04/25/25 04/26/25 04/26/25 20:55 04:33 07:27 WBC 15.2 H RBC 4.26 L Hgb 9.0 L Hct 30.3 L MCV 71.1 L MCH 21.1 L MCHC 29.7 L RDW 19.4 H Plt Count 428 H MPV 9.5 Sodium Potassium Chloride Carbon Dioxide Anion Gap BUN Creatinine Estim Creat Clear Calc Estimated GFR Glucose POC Capillary Glucose 263 H 303 H Lactic Acid 1.0 Calcium
--- NOTE | 2025-04-26 12:54 | WPDANESPN ---
Anes - Prog Note Post-Op Date/Time: 04/26/25 12:54 Cardiovascular status: normal Respiratory status: normal Airway patency: baseline Mental status: baseline Vital Signs: Last Vital Signs Temp 36.9 C 04/26/25 08:37 Pulse 111 H 04/26/25 08:37 Resp 20 04/26/25 08:37 BP 135/90 04/26/25 08:37 Pulse Ox 96 04/26/25 08:37 O2 Del Method Room Air 04/26/25 11:39 O2 Flow Rate 8 04/25/25 16:50 Pain Score (VAS): 2 I/O: Intake & Output 04/25/25 04/26/25 04/26/25 23:59 07:59 15:59 Intake Total 1336.9 100 480 Output Total 2350 Balance -1013.1 100 480 Laboratory Tests 04/26/25 04:33 04/25/25 12:10 04/25/25 04/25/25 04/25/25 10:19 11:18 12:10 WBC RBC Hgb Hct MCV MCH MCHC RDW Plt Count MPV Sodium 134 L Potassium 3.8 Chloride 109 H Carbon Dioxide 19 L Anion Gap 6 BUN 17 Creatinine 1.13 Estim Creat Clear Calc 77 Estimated GFR > 60 Glucose 215 H POC Capillary Glucose 175 H 219 H Lactic Acid Calcium 7.4 L 04/25/25 04/25/25 04/25/25 12:20 13:23 14:42 WBC RBC Hgb Hct MCV MCH MCHC RDW Plt Count MPV Sodium Potassium Chloride Carbon Dioxide Anion Gap BUN Creatinine Estim Creat Clear Calc Estimated GFR Glucose POC Capillary Glucose 236 H 240 H 247 H Lactic Acid Calcium 04/25/25 04/25/25 04/25/25 16:58 17:44 19:00 WBC RBC Hgb Hct MCV MCH MCHC RDW Plt Count MPV Sodium Potassium Chloride Carbon Dioxide Anion Gap BUN Creatinine Estim Creat Clear Calc Estimated GFR Glucose POC Capillary Glucose 205 H 204 H 224 H Lactic Acid Calcium 04/25/25 04/26/25 04/26/25 20:55 04:33 07:27 WBC 15.2 H RBC 4.26 L Hgb 9.0 L Hct 30.3 L MCV 71.1 L MCH 21.1 L MCHC 29.7 L RDW 19.4 H Plt Count 428 H MPV 9.5 Sodium Potassium Chloride Carbon Dioxide Anion Gap BUN Creatinine Estim Creat Clear Calc Estimated GFR Glucose POC Capillary Glucose 263 H 303 H Lactic Acid 1.0 Calcium 04/26/25 11:58 WBC RBC Hgb Hct MCV MCH MCHC RDW Plt Count MPV Sodium Potassium Chloride Carbon Dioxide Anion Gap BUN Creatinine Estim Creat Clear Calc Estimated GFR Glucose POC Capillary Glucose 154 H Lactic Acid Calcium Microbiology 04/23/25 21:26 Blood Blood Culture - Preliminary Group B Streptococcus Group B Streptococcus#2 04/23/25 21:26 Blood Blood Culture - Preliminary Group B Streptococcus Patient Feedback: Patient satisfied with anesthetic care.
[2025-04-26 14:29] VITALS: BP 152/87; PULSE 99; RESP 18; TEMP 36.6; O2SAT 100
[2025-04-26 19:17] VITALS: BP 167/93; PULSE 93; RESP 18; TEMP 36.4; O2SAT 100
[2025-04-26] MEDS: SENNA/DOCUSATE SODIUM TABLET 2 TAB PO (20:39)
[2025-04-26] MEDS: ONDANSETRON INJ 4 MG/2 ML VIAL IV PUSH (20:39)
[2025-04-26] MEDS: INSULIN GLARGINE (*BKC) 100 UNITS/ML 45 UNITS SUB-Q (21:02)
[2025-04-27] MEDS: ONDANSETRON INJ 4 MG/2 ML VIAL IV PUSH ×2 (03:32→09:32)
[2025-04-27 03:40] VITALS: BP 157/90
[2025-04-27 04:56] LABS: Hematocrit 35.0 % (42.0-52.0); Hemoglobin 10.4 g/dL (14.0-18.0); Mean Corpuscular HGB Conc 29.7 g/dl (32-36); Mean Corpuscular Hemoglobin 21.2 pg (26-34); Mean Corpuscular Volume 71.3 fl (80-100); Platelet Count Result 498 k/mm3 (150-375); Red Blood Count 4.91 M/mm3 (4.6-6.20); White Blood Count 13.1 K/mm3 (4.5-10.0)
[2025-04-27 05:05] LABS: Anion Gap 6 mmol/L (4-12); Blood Urea Nitrogen 9 mg/dL (9-20); Calcium 8.1 mg/dL (8.4-10.2); Carbon Dioxide 29 mmol/L (22-30); Chloride 102 mmol/L (98-107); Estimated CRCL calculation 67 ml/min; Estimated Glomerular Filt Rate 59; Glucose 177 mg/dL (65-110); Potassium 3.4 mmol/L (3.4-5.0); Sodium 137 mmol/L (137-145)
[2025-04-27 06:00] VITALS: BP 140/90; PULSE 107; RESP 16; TEMP 36.6; O2SAT 100
[2025-04-27] MEDS: LINEZOLID 600 MG/300 ML 600 MG/300 ML SOLN 300 MG IVPB ×2 (09:27→20:34)
[2025-04-27] MEDS: FAMOTIDINE 20 MG/2 ML VIAL IV PUSH ×2 (09:35→20:34)
[2025-04-27] MEDS: CEFEPIME 2 GM in SODIUM CHLORIDE 0.9% IV 50 ML 100 ML IVPB ×2 (09:36→20:34)
[2025-04-27] MEDS: GABAPENTIN 300 MG CAPSULE PO ×3 (09:36→16:23)
[2025-04-27] MEDS: ENOXAPARIN 40 MG/0.4 ML SYRINGE SUB-Q (09:37)
[2025-04-27] MEDS: INSULIN ASPART (*BKC) 100 UNITS/ML SUB-Q ×2 (13:10→20:43)
[2025-04-27 15:24] VITALS: BP 143/92; PULSE 110; RESP 16; TEMP 36.6; O2SAT 100
--- NOTE | 2025-04-27 17:16 | PM.IMPN2 ---
Assessment and Plan Assessment and Plan (1) DKA (diabetic ketoacidosis): Code(s): E11.10 - Type 2 diabetes mellitus with ketoacidosis without coma Status: Acute Assessment and Plan: 04/23: Patient presented the ED with hyperglycemia (621), CO2 < 5, elevated beta hydroxybutyrate. Diagnosed with DKA and given 4 L IV fluid bolus, started on insulin drip per DKA protocol and transferred to the ICU Gap closed and patient was transitioned to Lantus and high-dose sliding scale along with diabetic diet DKA resolved (2) Sepsis: Code(s): A41.9 - Sepsis, unspecified organism Status: Acute Assessment and Plan: Patient presented with foul smelling necrotic ulcer on the plantar aspect of his right big toe with purulent drainage. WBC 31K. Lactic 3.3. Cultures obtained and patient was given 1 dose of clindamycin BC 04/23 growing Group B Strept Wound Cx growing proteus and Group B Strept Continue antibiotics with cefepime and linezolid (04/23); Flagyl stopped 04/26 (3) Necrotizing fasciitis: Code(s): M72.6 - Necrotizing fasciitis Status: Acute Assessment and Plan: Necrotizing fasciitis likely of the right great toe, extending over 1st and 2nd metatarsal on the right foot. X-ray of the foot showed soft tissue gas concerning for necrotizing fasciitis 04/24: Status post Right midfoot amputation with placement of wound VAC 04/25: Right below-knee amputation -surgery following the patient, pain well controlled -antibiotics as above -PT/OT (4) Type 2 diabetes mellitus: Qualifiers: Diabetes mellitus fci insulin use: with salesperson children's shoes use Diabetes mellitus complication status: with skin complications Diabetes mellitus complication detail: with foot ulcer Qualified Code(s): E11.621 - Type 2 diabetes mellitus with foot ulcer; L97.509 - Non-pressure chronic ulcer of other part of unspecified foot with unspecified severity; Z79.4 - apprenticeship representative (current) use of insulin Code(s): E11.9 - Type 2 diabetes mellitus without complications Status: Chronic Assessment and Plan: Complicated by retinopathy, nephropathy, neuropathy, and gastroparesis. A1c 11.2%. Dietitian and cupola tapper helper have been consulted The patient's blood glucose was reviewed on 04/27 Glucose was 177 this morning. Continue AccuCheks covering with sliding scale. Hypoglycemia protocol available as needed. Follow (5) Acute kidney injury superimposed on chronic kidney disease: Code(s): N17.9 - Acute kidney failure, unspecified; N18.9 - Chronic kidney disease, unspecified Status: Acute Assessment and Plan: Acute on chronic renal failure, creatinine was 2.44 on admission (baseline 1.40-1.90) -patient adequately fluid-resuscitated -urine output has been adequate -creatinine down to 1.3 -continue to monitor urine output, renal function electrolytes Plan DVT prophylaxis: Lovenox Code Status: Full code Subjective Date/time seen: 04/27/25 17:16 Interval history: 49yo male with hypertension and diabetes type 2 with noncompliance with treatment here for weakness and nausea. He also has had multiple surgeries to his feet including amputation and started having draining each from his right foot approximately 4 days ago. 04/24: Right midfoot amputation with placement of wound VAC 04/25: Right below-knee amputation Assuming care. Chart reviewed. Patient with n/v last night but feels much better today. Eating and tolerating it. No CP or SOB. Leg pain is controlled with current treatment Exam Narrative: AF 97.8 143/92 110 16 100% ra Gen - NARD Chest - CTA bilaterally, nml RR CV - RRR S1/S2 Abd - Soft, NT/ND, Positive BS Ext - Right BKA with brace in place; no left LE edema Neuro - Alert and appropriate Psych - Nml mood and affect Skin - Warm and dry Objective Data Vital Signs Vital Signs: Vital Signs - 24 hr 04/26/25 19:17 04/26/25 20:00 04/27/25 03:40 Temperature 97.6 F Pulse Rate 93 Respiratory Rate 18 Blood Pressure 167/93 H 157/90 H Pulse Oximetry 100 Oxygen Delivery Room Air 04/27/25 06:00 04/27/25 08:00 04/27/25 15:24 Temperature 97.8 F 97.8 F Pulse Rate 107 H 110 H Respiratory Rate 16 16 Blood Pressure 140/90 143/92 H Pulse Oximetry 100 100 Oxygen Delivery Room Air Intake/Output Intake/Output: Intake & Output 04/24/25 04/25/25 04/26/25 04/27/25 23:59 23:59 23:59 23:59 Intake Total 6481.7 4903.7 1990 880 Output Total 4400 3050 1500 2200 Balance 2081.7 1853.7 490 -1320 Meds/Results Medications: Active Medications Generic Name Dose Route Start Last Admin Trade Name Freq PRN Reason Stop Dose Admin Acetaminophen 650 mg 04/23/25 22:18 Acetaminophen 325 Mg Tablet PO Q4H PRN Mild Pain (1-3) or Fever Dextrose 12.5 gm 04/25/25 21:38 Dextrose 50% 25 Gm/50 Ml Syringe IV PUSH PRN PRN Hypoglycemia Protocol Enoxaparin Sodium 40 mg 04/24/25 09:00 04/27/25 09:37 Enoxaparin 40 Mg/0.4 Ml Syringe SUB-Q 40 mg DAILY KEEGAN Administration Famotidine 20 mg 04/24/25 22:25 04/27/25 09:35 Famotidine 20 Mg/2 Ml Vial IV PUSH 20 mg Q12HR KEEGAN Administration Gabapentin 300 mg 04/25/25 17:32 04/27/25 16:23 Gabapentin 300 Mg Capsule PO 300 mg TID KEEGAN Administration Glucagon 1 mg 04/25/25 21:38 Glucagon For Inj 1 Mg Vial IM PRN PRN Hypoglycemia Protocol Glucose 15 gm 04/25/25 21:38 Glucose Oral Gel 15 Gm Of Glucse In 37.5 Gm Tube PO PRN PRN Hypoglycemia Protocol Hydralazine HCl 10 mg 04/24/25 04:41 04/27/25 03:44 Hydralazine Hcl 20 Mg/Ml Vial IV PUSH 10 mg Q8H PRN Administration Blood Pressure - High Hydromorphone HCl 1 mg 04/25/25 17:32 04/25/25 21:03 Hydromorphone Hcl Inj (*Crx) 1 Mg/Ml Syr IV PUSH 1 mg Q2H PRN Administration Breakthrough Pain Rated 7-10 or NPO Hydromorphone HCl 0.5 mg 04/25/25 17:32 04/25/25 17:34 Hydromorphone Hcl Inj (*Crx) 1 Mg/Ml Syr IV PUSH 0.5 mg Q2H PRN Administration Breakthrough Pain Rated 4-6 or NPO Linezolid 600 mg in 300 mls @ 300 mls/hr 04/24/25 21:00 04/27/25 09:27 Zyvox IVPB 300 mls/hr Q12HR KEEGAN Administration Ibuprofen 800 mg in 200 mls @ 400 mls/hr 12/18/25 17:32 Caldolor 800 Mg/200 Ml IVPB Q6H PRN Breakthrough Pain Rated 1-3 or NPO Dextrose 1,000 mls @ 100 mls/hr 04/25/25 21:38 Dextrose 5% 1,000 Ml IVPB PRN PRN Hypoglycemia Protocol Cefepime HCl 2 gm/ Sodium 50 mls @ 100 mls/hr 04/26/25 09:00 04/27/25 09:36 Chloride IVPB 100 mls/hr Q12HR KEEGAN Administration Insulin Aspart 4 - 8 units 04/26/25 08:00 04/27/25 13:10 Insulin Aspart (*Bkc) 100 Units/Ml SUB-Q 4 units TIDWM KEEGAN Administration Protocol Insulin Aspart 2 - 4 units 04/25/25 21:00 04/26/25 21:04 Insulin Aspart (*Bkc) 100 Units/Ml SUB-Q 2 units HS KEEGAN Administration Protocol Insulin Glargine 45 units 04/26/25 21:00 04/26/25 21:02 Insulin Glargine (*Bkc) 100 Units/Ml SUB-Q 45 units HS KEEGAN Administration Naloxone HCl 0.1 mg 04/25/25 17:32 Naloxone Hcl 0.4 Mg/Ml Vial IV PUSH Q2M PRN Opiate Reversal Ondansetron HCl 4 mg 04/24/25 04:47 04/27/25 09:32 Ondansetron Inj 4 Mg/2 Ml Vial IV PUSH 4 mg Q4H PRN Administration Nausea And Vomiting Oxycodone/Acetaminophen 1 tablet 04/25/25 17:32 Oxycodone/Acetaminophen (*Crx) 5-325 Mg Tablet PO Q4H PRN Pain Rated 4-6 Oxycodone/Acetaminophen 1 tab 04/25/25 17:32 04/26/25 20:55 Oxycodone/Acetaminophen (*Crx) 10-325 Mg Tablet PO 1 tab Q6H PRN Administration Pain Rated 7-10 Senna/Docusate Sodium 2 tab 04/25/25 21:00 04/26/25 20:39 Senna/Docusate Sodium Tablet PO 2 tab HS KEEGAN Administration Radiology Results: ITS Impressions Chest X-Ray 04/23/25 21:32 IMPRESSION: No acute pulmonary findings. Foot X-Ray 04/23/25 21:33 IMPRESSION: There is soft tissue gas adjacent to the first metatarsal. There are concern for osteomyelitis follow-up MRI is recommended. Labs Labs: Laboratory Results - last 24 hr 04/26/25 04/27/25 04/27/25 21:00 04:36 08:01 WBC 13.1 H RBC 4.91 Hgb 10.4 L Hct 35.0 L MCV 71.3 L MCH 21.2 L MCHC 29.7 L RDW 19.7 H Plt Count 498 H MPV 10.0 Sodium 137 Potassium 3.4 Chloride 102 Carbon Dioxide 29 Anion Gap 6 BUN 9 D Creatinine 1.30 Estim Creat Clear Calc 67 Estimated GFR 59 Glucose 177 H POC Capillary Glucose 243 H 162 H Calcium 8.1 L 04/27/25 04/27/25 11:38 16:46 WBC RBC Hgb Hct MCV MCH MCHC RDW Plt Count MPV Sodium Potassium Chloride Carbon Dioxide Anion Gap BUN Creatinine Estim Creat Clear Calc Estimated GFR Glucose POC Capillary Glucose 203 H 189 H Calcium
[2025-04-27] MEDS: INSULIN GLARGINE (*BKC) 100 UNITS/ML 45 UNITS SUB-Q (20:44)
[2025-04-27 21:22] VITALS: BP 153/82; PULSE 98; RESP 18; TEMP 36.5; O2SAT 100
[2025-04-28 05:16] LABS: Hematocrit 28.4 % (42.0-52.0); Hemoglobin 8.5 g/dL (14.0-18.0); Mean Corpuscular HGB Conc 29.9 g/dl (32-36); Mean Corpuscular Hemoglobin 21.1 pg (26-34); Mean Corpuscular Volume 70.5 fl (80-100); Platelet Count Result 443 k/mm3 (150-375); Red Blood Count 4.03 M/mm3 (4.6-6.20); White Blood Count 10.6 K/mm3 (4.5-10.0)
[2025-04-28 05:35] LABS: Anion Gap 3 mmol/L (4-12); Blood Urea Nitrogen 8 mg/dL (9-20); Calcium 7.7 mg/dL (8.4-10.2); Carbon Dioxide 33 mmol/L (22-30); Chloride 100 mmol/L (98-107); Estimated CRCL calculation 66 ml/min; Estimated Glomerular Filt Rate 56; Glucose 177 mg/dL (65-110); Potassium 3.9 mmol/L (3.4-5.0); Sodium 136 mmol/L (137-145)
[2025-04-28 06:20] VITALS: BP 156/89; PULSE 101; RESP 18; TEMP 36.3; O2SAT 99
[2025-04-28] MEDS: CEFEPIME 2 GM in SODIUM CHLORIDE 0.9% IV 50 ML 100 ML IVPB (08:22)
[2025-04-28] MEDS: GABAPENTIN 300 MG CAPSULE PO ×3 (08:26→16:01)
[2025-04-28] MEDS: ENOXAPARIN 40 MG/0.4 ML SYRINGE SUB-Q (08:26)
[2025-04-28] MEDS: FAMOTIDINE 20 MG/2 ML VIAL IV PUSH ×2 (08:27→21:55)
--- NOTE | 2025-04-28 08:37 | PM.PNGS ---
Progress Note: A&P Assessment and Plan (1) Below-knee amputation of right lower extremity: Code(s): S88.111A - Complete traumatic amputation at level between knee and ankle, right lower leg, initial encounter Status: Acute Assessment and Plan: doing well, continue local wound care, continue PT/OT Subjective Subjective Date/Time Seen: 04/28/25 08:37 Interval history: feels good, no complaints Review of Systems Review of Systems: All systems reviewed & are unremarkable except as noted in HPI and below Exam Const: General: cooperative, comfortable and no acute distress Resp: Auscultation: clear to auscultation bilaterally Cardio: Rate: regular rate Rhythm: regular rhythm GI: Inspection: normal to inspection Extrem: Other: right lower extremity BKA site looks good, west intact, no signs of infection, necrosis Objective Data Vital Signs Vital Signs: Vital Signs - 24 hr 04/27/25 15:24 04/27/25 20:00 04/27/25 21:22 Temperature 36.6 C 36.5 C Pulse Rate 110 H 98 Respiratory Rate 16 18 Blood Pressure 143/92 H 153/82 H Pulse Oximetry 100 100 Oxygen Delivery Room Air 04/28/25 06:20 Temperature 36.3 C L Pulse Rate 101 H Respiratory Rate 18 Blood Pressure 156/89 H Pulse Oximetry 99 Oxygen Delivery Intake/Output Intake/Output: Intake & Output 04/25/25 04/26/25 04/27/25 04/28/25 23:59 23:59 23:59 23:59 Intake Total 4903.7 1990 1650 500 Output Total 3050 1500 3150 2700 Balance 1853.7 490 -1500 -2200 Meds/Results Medications: Active Medications Generic Name Dose Route Start Last Admin Trade Name Freq PRN Reason Stop Dose Admin Acetaminophen 650 mg 04/23/25 22:18 Acetaminophen 325 Mg Tablet PO Q4H PRN Mild Pain (1-3) or Fever Dextrose 12.5 gm 04/25/25 21:38 Dextrose 50% 25 Gm/50 Ml Syringe IV PUSH PRN PRN Hypoglycemia Protocol Enoxaparin Sodium 40 mg 04/24/25 09:00 04/28/25 08:26 Enoxaparin 40 Mg/0.4 Ml Syringe SUB-Q 40 mg DAILY KEEGAN Administration Famotidine 20 mg 04/24/25 22:25 04/28/25 08:27 Famotidine 20 Mg/2 Ml Vial IV PUSH 20 mg Q12HR KEEGAN Administration Gabapentin 300 mg 04/25/25 17:32 04/28/25 08:26 Gabapentin 300 Mg Capsule PO 300 mg TID KEEGAN Administration Glucagon 1 mg 04/25/25 21:38 Glucagon For Inj 1 Mg Vial IM PRN PRN Hypoglycemia Protocol Glucose 15 gm 04/25/25 21:38 Glucose Oral Gel 15 Gm Of Glucse In 37.5 Gm Tube PO PRN PRN Hypoglycemia Protocol Hydralazine HCl 10 mg 04/24/25 04:41 04/27/25 03:44 Hydralazine Hcl 20 Mg/Ml Vial IV PUSH 10 mg Q8H PRN Administration Blood Pressure - High Hydromorphone HCl 1 mg 04/25/25 17:32 04/25/25 21:03 Hydromorphone Hcl Inj (*Crx) 1 Mg/Ml Syr IV PUSH 1 mg Q2H PRN Administration Breakthrough Pain Rated 7-10 or NPO Hydromorphone HCl 0.5 mg 04/25/25 17:32 04/25/25 17:34 Hydromorphone Hcl Inj (*Crx) 1 Mg/Ml Syr IV PUSH 0.5 mg Q2H PRN Administration Breakthrough Pain Rated 4-6 or NPO Linezolid 600 mg in 300 mls @ 300 mls/hr 04/24/25 21:00 04/27/25 20:34 Zyvox IVPB 300 mls/hr Q12HR KEEAGN Administration Ibuprofen 800 mg in 200 mls @ 400 mls/hr 04/25/25 17:32 Caldolor 800 Mg/200 Ml IVPB Q6H PRN Breakthrough Pain Rated 1-3 or NPO Dextrose 1,000 mls @ 100 mls/hr 04/25/25 21:38 Dextrose 5% 1,000 Ml IVPB PRN PRN Hypoglycemia Protocol Cefepime HCl 2 gm/ Sodium 50 mls @ 100 mls/hr 04/26/25 09:00 04/28/25 08:22 Chloride IVPB 100 mls/hr Q12HR KEEGAN Administration Insulin Aspart 4 - 8 units 04/26/25 08:00 04/28/25 08:21 Insulin Aspart (*Bkc) 100 Units/Ml SUB-Q Not Given TIDWM KEEGAN Protocol Insulin Aspart 2 - 4 units 04/25/25 21:00 04/27/25 20:43 Insulin Aspart (*Bkc) 100 Units/Ml SUB-Q 2 units HS [facility] Administration Protocol Insulin Glargine 45 units 04/26/25 21:00 04/27/25 20:44 Insulin Glargine (*Bkc) 100 Units/Ml SUB-Q 45 units HS [facility] Administration Naloxone HCl 0.1 mg 04/25/25 17:32 Naloxone Hcl 0.4 Mg/Ml Vial IV PUSH Q2M PRN Opiate Reversal Ondansetron HCl 4 mg 04/24/25 04:47 04/27/25 09:32 Ondansetron Inj 4 Mg/2 Ml Vial IV PUSH 4 mg Q4H PRN Administration Nausea And Vomiting Oxycodone/Acetaminophen 1 tablet 04/25/25 17:32 Oxycodone/Acetaminophen (*Crx) 5-325 Mg Tablet PO Q4H PRN Pain Rated 4-6 Oxycodone/Acetaminophen 1 tab 04/25/25 17:32 04/26/25 20:55 Oxycodone/Acetaminophen (*Crx) 10-325 Mg Tablet PO 1 tab Q6H PRN Administration Pain Rated 7-10 Senna/Docusate Sodium 2 tab 04/25/25 21:00 04/27/25 20:35 Senna/Docusate Sodium Tablet PO Not Given HS [facility] Radiology Results: ITS Impressions Chest X-Ray 04/23/25 21:32 IMPRESSION: No acute pulmonary findings. Foot X-Ray 04/23/25 21:33 IMPRESSION: There is soft tissue gas adjacent to the first metatarsal. There are concern for osteomyelitis follow-up MRI is recommended. Labs Labs: Laboratory Results - last 24 hr 04/27/25 04/27/25 04/27/25 11:38 16:46 20:11 WBC RBC Hgb Hct MCV MCH MCHC RDW Plt Count MPV Sodium Potassium Chloride Carbon Dioxide Anion Gap BUN Creatinine Estim Creat Clear Calc Estimated GFR Glucose POC Capillary Glucose 203 H 189 H 253 H Calcium 04/28/25 04/28/25 04:57 08:01 WBC 10.6 H RBC 4.03 L Hgb 8.5 L Hct 28.4 L MCV 70.5 L MCH 21.1 L MCHC 29.9 L RDW 19.1 H Plt Count 443 H MPV 9.4 Sodium 136 L Potassium 3.9 Chloride 100 Carbon Dioxide 33 H Anion Gap 3 L BUN 8 L Creatinine 1.37 H Estim Creat Clear Calc 66 Estimated GFR 56 L Glucose 177 H POC Capillary Glucose 164 H Calcium 7.7 L
[2025-04-28] MEDS: LINEZOLID 600 MG/300 ML 600 MG/300 ML SOLN 300 MG IVPB ×2 (09:11→22:39)
[2025-04-28] MEDS: INSULIN ASPART (*BKC) 100 UNITS/ML SUB-Q ×3 (12:04→22:00)
--- NOTE | 2025-04-28 12:52 | P.PNIM_ITS ---
Assessment and Plan Assessment and Plan (1) DKA (diabetic ketoacidosis): Code(s): E11.10 - Type 2 diabetes mellitus with ketoacidosis without coma Status: Acute Assessment and Plan: 04/23: Patient presented the ED with hyperglycemia (621), CO2 < 5, elevated beta hydroxybutyrate. Diagnosed with DKA and given 4 L IV fluid bolus, started on insulin drip per DKA protocol and transferred to the ICU Gap closed and patient was transitioned to Lantus and high-dose sliding scale along with diabetic diet DKA resolved (2) Sepsis: Code(s): A41.9 - Sepsis, unspecified organism Status: Acute Assessment and Plan: Patient presented with foul smelling necrotic ulcer on the plantar aspect of his right big toe with purulent drainage. WBC 31K. Lactic 3.3. Cultures obtained and patient was given 1 dose of clindamycin BCx 04/23 growing Group B Strept Wound Cx growing proteus and Group B Strept BCx 04/26 NGTD Continue antibiotics with cefepime and linezolid (04/23); Flagyl stopped 04/26. Change to Rocephin (3) Necrotizing fasciitis: Code(s): M72.6 - Necrotizing fasciitis Status: Acute Assessment and Plan: Necrotizing fasciitis likely of the right great toe, extending over 1st and 2nd metatarsal on the right foot. 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 A1c 11.2%. Dietitian and outreach educator consulted The patient's blood glucose was reviewed on 04/28 Glucose was 177 this morning. Continue AccuCheks covering with sliding scale. Hypoglycemia protocol available as needed. Continue Lantus at night. Add meal time novlog (5) Acute kidney injury superimposed on chronic kidney disease: Code(s): N17.9 - Acute kidney failure, unspecified; N18.9 - Chronic kidney disease, unspecified Status: Acute Assessment and Plan: Acute on chronic renal failure, creatinine was 2.44 on admission (baseline 1.40- 1.90) -patient adequately fluid-resuscitated -urine output has been adequate -creatinine down to 1.3 -continue to monitor urine output, renal function electrolytes Plan Anemia - microcytic. Check Iron studies. Follow DVT prophylaxis: Lovenox Code Status: Full code Subjective Date/time seen: 04/28/25 12:52 Interval history: 49yo male with hypertension and diabetes type 2 with noncompliance with jesus tment here for weakness and nausea. He also has had multiple surgeries to his feet including amputation and started having draining each from his right foot approximately 4 days ago. 04/24: Right midfoot amputation with placement of wound VAC 04/25: Right below-knee amputation No problems overnight. Slept well. No CP or SOB. No n/v. Exam Narrative: AF 96.7 147/87 67 17 97% ra Gen - NARD Chest - CTA bilaterally, nml RR CV - RRR S1/S2 Abd - Soft, NT/ND, Positive BS Ext - Right BKA with brace in place; no left LE edema Neuro - Alert and appropriate Psych - Nml mood and affect. in good spirits Skin - Warm and dry Objective Data Vital Signs Vital Signs: Vital Signs - 24 hr 04/27/25 15:24 04/27/25 20:00 04/27/25 21:22 Temperature 97.8 F 97.7 F Pulse Rate 110 H 98 Respiratory Rate 16 18 Blood Pressure 143/92 H 153/82 H Pulse Oximetry 100 100 Oxygen Delivery Room Air 04/28/25 06:20 04/28/25 08:26 Temperature 97.4 F L Pulse Rate 101 H Respiratory Rate 18 Blood Pressure 156/89 H Pulse Oximetry 99 Oxygen Delivery Room Air Intake/Output Intake/Output: Intake & Output 04/25/25 04/26/25 04/27/25 04/28/25 23:59 23:59 23:59 23:59 Intake Total 4903.7 1989 1949 790 Output Total 3050 1500 3150 3300 Balance 1853.7 635 -3969 -1522 Meds/Results Medications: Active Medications Generic Name Dose Route Start Last Admin Trade Name Freq PRN Reason Stop Dose Admin Acetaminophen 650 mg 04/23/25 22:18 Acetaminophen 325 Mg Tablet PO Q4H PRN Mild Pain (1-3) or Fever Dextrose 12.5 gm 04/25/25 21:38 Dextrose 50% 25 Gm/50 Ml Syringe IV PUSH PRN PRN Hypoglycemia Protocol Enoxaparin Sodium 40 mg 04/24/25 09:00 04/28/25 08:26 Enoxaparin 40 Mg/0.4 Ml Syringe SUB-Q 40 mg DAILY KEEGAN Administration Famotidine 20 mg 04/24/25 22:25 04/28/25 08:27 Famotidine 20 Mg/2 Ml Vial IV PUSH 20 mg Q12HR KEEGAN Administration Gabapentin 300 mg 04/25/25 17:32 04/28/25 12:04 Gabapentin 300 Mg Capsule PO 300 mg TID KEEGAN Administration Glucagon 1 mg 04/25/25 21:38 Glucagon For Inj 1 Mg Vial IM PRN PRN Hypoglycemia Protocol Glucose 15 gm 04/25/25 21:38 Glucose Oral Gel 15 Gm Of Glucse In 37.5 Gm Tube PO PRN PRN Hypoglycemia Protocol Hydralazine HCl 10 mg 04/24/25 04:41 04/27/25 03:44 Hydralazine Hcl 20 Mg/Ml Vial IV PUSH 10 mg Q8H PRN Administration Blood Pressure - High Hydromorphone HCl 1 mg 04/25/25 17:32 04/25/25 21:03 Hydromorphone Hcl Inj (*Crx) 1 Mg/Ml Syr IV PUSH 1 mg Q2H PRN Administration Breakthrough Pain Rated 7-10 or NPO Hydromorphone HCl 0.5 mg 04/25/25 17:32 04/25/25 17:34 Hydromorphone Hcl Inj (*Crx) 1 Mg/Ml Syr IV PUSH 0.5 mg Q2H PRN Administration Breakthrough Pain Rated 4-6 or NPO Linezolid 600 mg in 300 mls @ 300 mls/hr 04/24/25 21:00 04/28/25 09:11 Zyvox IVPB 300 mls/hr Q12HR KEEGAN Administration Ibuprofen 800 mg in 200 mls @ 400 mls/hr 04/25/25 17:32 Caldolor 800 Mg/200 Ml IVPB Q6H PRN Breakthrough Pain Rated 1-3 or NPO Dextrose 1,000 mls @ 100 mls/hr 04/25/25 21:38 Dextrose 5% 1,000 Ml IVPB PRN PRN Hypoglycemia Protocol Cefepime HCl 2 gm/ Sodium 50 mls @ 100 mls/hr 04/26/25 09:00 04/28/25 08:52 Chloride IVPB Infused Q12HR KEEGAN Infusion Insulin Aspart 4 - 8 units 04/26/25 08:00 04/28/25 12:04 Insulin Aspart (*Bkc) 100 Units/Ml SUB-Q 8 units TIDWM [facility] Administration Protocol Insulin Aspart 2 - 4 units 04/25/25 21:00 04/27/25 20:43 Insulin Aspart (*Bkc) 100 Units/Ml SUB-Q 2 units HS [facility] Administration Protocol Insulin Glargine 45 units 04/26/25 21:00 04/27/25 20:44 Insulin Glargine (*Bkc) 100 Units/Ml SUB-Q 45 units HS [facility] Administration Naloxone HCl 0.1 mg 04/25/25 17:32 Naloxone Hcl 0.4 Mg/Ml Vial IV PUSH Q2M PRN Opiate Reversal Ondansetron HCl 4 mg 04/24/25 04:47 04/27/25 09:32 Ondansetron Inj 4 Mg/2 Ml Vial IV PUSH 4 mg Q4H PRN Administration Nausea And Vomiting Oxycodone/Acetaminophen 1 tablet 04/25/25 17:32 Oxycodone/Acetaminophen (*Crx) 5-325 Mg Tablet PO Q4H PRN Pain Rated 4-6 Oxycodone/Acetaminophen 1 tab 04/25/25 17:32 04/26/25 20:55 Oxycodone/Acetaminophen (*Crx) 10-325 Mg Tablet PO 1 tab Q6H PRN Administration Pain Rated 7-10 Senna/Docusate Sodium 2 tab 04/25/25 21:00 04/27/25 20:35 Senna/Docusate Sodium Tablet PO Not Given HS [facility] Radiology Results: ITS Impressions Chest X-Ray 04/23/25 21:32 IMPRESSION: No acute pulmonary findings. Foot X-Ray 04/23/25 21:33 IMPRESSION: There is soft tissue gas adjacent to the first metatarsal. There are concern for osteomyelitis follow-up MRI is recommended. Labs Labs: Laboratory Results - last 24 hr 04/27/25 04/27/25 04/28/25 16:46 20:11 04:57 WBC 10.6 H RBC 4.03 L Hgb 8.5 L Hct 28.4 L MCV 70.5 L MCH 21.1 L MCHC 29.9 L RDW 19.1 H Plt Count 443 H MPV 9.4 Sodium 136 L Potassium 3.9 Chloride 100 Carbon Dioxide 33 H Anion Gap 3 L BUN 8 L Creatinine 1.37 H Estim Creat Clear Calc 66 Estimated GFR 56 L Glucose 177 H POC Capillary Glucose 189 H 253 H Calcium 7.7 L 04/28/25 04/28/25 08:01 11:57 WBC RBC Hgb Hct MCV MCH MCHC RDW Plt Count MPV Sodium Potassium Chloride Carbon Dioxide Anion Gap BUN Creatinine Estim Creat Clear Calc Estimated GFR Glucose POC Capillary Glucose 164 H 352 H Calcium
[2025-04-28 15:17] VITALS: BP 151/87; PULSE 100; RESP 18; TEMP 37.2; O2SAT 99
[2025-04-28 20:00] VITALS: O2SAT 97
[2025-04-28 20:31] VITALS: BP 136/90; PULSE 102; RESP 18; TEMP 36.9; O2SAT 97
[2025-04-28] MEDS: cefTRIAXone 2 GM in SODIUM CHLORIDE 0.9% IV 100 ML 200 ML IVPB (21:51)
[2025-04-28] MEDS: INSULIN GLARGINE (*BKC) 100 UNITS/ML 45 UNITS SUB-Q (22:00)
[2025-04-29 04:54] VITALS: BP 138/78; PULSE 99; RESP 16; TEMP 37.2; O2SAT 99
[2025-04-29 05:37] LABS: Hematocrit 27.9 % (42.0-52.0); Hemoglobin 8.3 g/dL (14.0-18.0); Mean Corpuscular HGB Conc 29.7 g/dl (32-36); Mean Corpuscular Hemoglobin 21.1 pg (26-34); Mean Corpuscular Volume 71.0 fl (80-100); Platelet Count Result 439 k/mm3 (150-375); Red Blood Count 3.93 M/mm3 (4.6-6.20); White Blood Count 12.0 K/mm3 (4.5-10.0)
[2025-04-29 05:48] LABS: Iron 42 ug/dL (49-181)
[2025-04-29 05:57] LABS: Percent Iron Saturation 28 % (20-50)
[2025-04-29 06:05] LABS: Anion Gap 4 mmol/L (4-12); Blood Urea Nitrogen 11 mg/dL (9-20); Calcium 7.4 mg/dL (8.4-10.2); Carbon Dioxide 31 mmol/L (22-30); Chloride 101 mmol/L (98-107); Estimated CRCL calculation 66 ml/min; Estimated Glomerular Filt Rate 56; Glucose 151 mg/dL (65-110); Potassium 3.4 mmol/L (3.4-5.0); Sodium 136 mmol/L (137-145)
[2025-04-29 06:29] LABS: Ferritin 62.40 ng/mL (17.9-464)
[2025-04-29 07:13] LABS: Vitamin B12 687.0 pg/mL (239-931)
[2025-04-29 08:32] VITALS: PULSE 80; RESP 16; O2SAT 99
[2025-04-29] MEDS: FAMOTIDINE 20 MG TABLET PO ×2 (08:32→21:26)
[2025-04-29] MEDS: POTASSIUM CHLORIDE 20 MEQ ER TABLET 40 MEQ PO (08:32)
[2025-04-29] MEDS: LINEZOLID 600 MG/300 ML 600 MG/300 ML SOLN 300 MG IVPB (08:32)
[2025-04-29] MEDS: GABAPENTIN 300 MG CAPSULE PO ×3 (08:32→17:12)
[2025-04-29] MEDS: ENOXAPARIN 40 MG/0.4 ML SYRINGE SUB-Q (08:33)
[2025-04-29] MEDS: INSULIN ASPART (*BKC) 100 UNITS/ML SUB-Q ×6 (08:47→21:26)
--- NOTE | 2025-04-29 14:22 | P.PNGS_ITS ---
Progress Note: A&P Assessment and Plan (1) Below-knee amputation of right lower extremity: Code(s): S88.111A - Complete traumatic amputation at level between knee and ankle, right lower leg, initial encounter Status: Acute Assessment and Plan: * POD4 s/p right BKA. Patient continues to improve. Working with PT/OT. * Continue local wound care. Pending insurance approval for [facility]. Plan Discussed patient's case and plan of care with Dr. Kuo. Subjective Subjective Date/Time Seen: 04/29/25 14:22 Patient reports: no new complaints, feels better, pain is less, tolerating a regular diet and afebrile Interval history: Patient is doing well today. Denies any pain to his leg. He has been doing well working with physical therapy. WBC 12.0. Exam Const: General: comfortable and no acute distress Extrem: Other: Right BKA dressing changed by nursing staff today. Reportedly doing very well and healing as expected. Dressing and knee immobilizer in place. Objective Data Vital Signs Vital Signs: Vital Signs - 24 hr 04/28/25 15:17 04/28/25 20:00 04/28/25 20:31 Temperature 98.9 F 98.4 F Pulse Rate 100 102 H Respiratory Rate 18 18 Blood Pressure 151/87 H 136/90 Pulse Oximetry 99 97 97 Oxygen Delivery Room Air 04/29/25 04:54 04/29/25 08:32 Temperature 98.9 F Pulse Rate 99 80 Respiratory Rate 16 16 Blood Pressure 138/78 Pulse Oximetry 99 99 Oxygen Delivery Room Air Intake/Output Intake/Output: Intake & Output 04/26/25 04/27/25 04/28/25 04/29/25 23:59 23:59 23:59 23:59 Intake Total 1989 1950 3092 1590 Output Total 1500 3150 7200 3000 Balance 841 -9789 -7542 -8480 Meds/Results Medications: Active Medications Generic Name Dose Route Start Last Admin Trade Name Freq PRN Reason Stop Dose Admin Acetaminophen 650 mg 04/23/25 22:18 Acetaminophen 325 Mg Tablet PO Q4H PRN Mild Pain (1-3) or Fever Dextrose 12.5 gm 04/25/25 21:38 Dextrose 50% 25 Gm/50 Ml Syringe IV PUSH PRN PRN Hypoglycemia Protocol Enoxaparin Sodium 40 mg 04/24/25 09:00 04/29/25 08:33 Enoxaparin 40 Mg/0.4 Ml Syringe SUB-Q 40 mg DAILY KEEGAN Administration Famotidine 20 mg 04/29/25 09:00 04/29/25 08:32 Famotidine 20 Mg Tablet PO 20 mg Q12HR KEEGAN Administration Gabapentin 300 mg 04/25/25 17:32 04/29/25 12:36 Gabapentin 300 Mg Capsule PO 300 mg TID KEEGAN Administration Glucagon 1 mg 04/25/25 21:38 Glucagon For Inj 1 Mg Vial IM PRN PRN Hypoglycemia Protocol Glucose 15 gm 04/25/25 21:38 Glucose Oral Gel 15 Gm Of Glucse In 37.5 Gm Tube PO PRN PRN Hypoglycemia Protocol Hydralazine HCl 10 mg 04/24/25 04:41 04/27/25 03:44 Hydralazine Hcl 20 Mg/Ml Vial IV PUSH 10 mg Q8H PRN Administration Blood Pressure - High Hydromorphone HCl 1 mg 04/25/25 17:32 04/25/25 21:03 Hydromorphone Hcl Inj (*Crx) 1 Mg/Ml Syr IV PUSH 1 mg Q2H PRN Administration Breakthrough Pain Rated 7-10 or NPO Hydromorphone HCl 0.5 mg 04/25/25 17:32 04/25/25 17:34 Hydromorphone Hcl Inj (*Crx) 1 Mg/Ml Syr IV PUSH 0.5 mg Q2H PRN Administration Breakthrough Pain Rated 4-6 or NPO Ibuprofen 800 mg in 200 mls @ 400 mls/hr 04/25/25 17:32 Caldolor 800 Mg/200 Ml IVPB Q6H PRN Breakthrough Pain Rated 1-3 or NPO Dextrose 1,000 mls @ 100 mls/hr 04/25/25 21:38 Dextrose 5% 1,000 Ml IVPB PRN PRN Hypoglycemia Protocol Ceftriaxone Sodium 2 gm/ 100 mls @ 200 mls/hr 04/28/25 21:00 04/28/25 22:21 Sodium Chloride IVPB 05/06/25 21:29 Infused 2100 KEEGAN Infusion Insulin Aspart 4 - 8 units 04/26/25 08:00 04/29/25 12:22 Insulin Aspart (*Bkc) 100 Units/Ml SUB-Q 4 units TIDWM KEEGAN Administration Protocol Insulin Aspart 2 - 4 units 04/25/25 21:00 04/28/25 22:00 Insulin Aspart (*Bkc) 100 Units/Ml SUB-Q 2 units HS [facility] Administration Protocol Insulin Aspart 4 units 04/29/25 08:00 04/29/25 12:20 Insulin Aspart (*Bkc) 100 Units/Ml 0.05 units/kg (4 units) 4 units SUB-Q Administration TIDWM [facility] Insulin Glargine 45 units 04/26/25 21:00 04/28/25 22:00 Insulin Glargine (*Bkc) 100 Units/Ml SUB-Q 45 units HS [facility] Administration Naloxone HCl 0.1 mg 04/25/25 17:32 Naloxone Hcl 0.4 Mg/Ml Vial IV PUSH Q2M PRN Opiate Reversal Ondansetron HCl 4 mg 04/24/25 04:47 04/27/25 09:32 Ondansetron Inj 4 Mg/2 Ml Vial IV PUSH 4 mg Q4H PRN Administration Nausea And Vomiting Oxycodone/Acetaminophen 1 tablet 04/25/25 17:32 Oxycodone/Acetaminophen (*Crx) 5-325 Mg Tablet PO Q4H PRN Pain Rated 4-6 Oxycodone/Acetaminophen 1 tab 04/25/25 17:32 04/26/25 20:55 Oxycodone/Acetaminophen (*Crx) 10-325 Mg Tablet PO 1 tab Q6H PRN Administration Pain Rated 7-10 Senna/Docusate Sodium 2 tab 04/25/25 21:00 04/28/25 22:01 Senna/Docusate Sodium Tablet PO Not Given [facility] Radiology Results: ITS Impressions Chest X-Ray 04/23/25 21:32 IMPRESSION: No acute pulmonary findings. Foot X-Ray 04/23/25 21:33 IMPRESSION: There is soft tissue gas adjacent to the first metatarsal. There are concern for osteomyelitis follow-up MRI is recommended. Labs Labs: Laboratory Results - last 24 hr 04/28/25 04/28/25 04/29/25 16:48 20:30 04:50 WBC 12.0 H RBC 3.93 L Hgb 8.3 L Hct 27.9 L MCV 71.0 L MCH 21.1 L MCHC 29.7 L RDW 19.3 H Plt Count 439 H MPV 9.3 Sodium 136 L Potassium 3.4 Chloride 101 Carbon Dioxide 31 H Anion Gap 4 BUN 11 Creatinine 1.37 H Estim Creat Clear Calc 66 Estimated GFR 56 L Glucose 151 H POC Capillary Glucose 239 H 212 H Calcium 7.4 L Iron 42 L TIBC 151 L % Saturation 28 Ferritin 62.40 Vitamin B12 687.0 Folate 6.0 04/29/25 04/29/25 08:22 12:00 WBC RBC Hgb Hct MCV MCH MCHC RDW Plt Count MPV Sodium Potassium Chloride Carbon Dioxide Anion Gap BUN Creatinine Estim Creat Clear Calc Estimated GFR Glucose POC Capillary Glucose 192 H 233 H Calcium Iron TIBC % Saturation Ferritin Vitamin B12 Folate
[2025-04-29 15:53] VITALS: BP 154/94; PULSE 107; RESP 20; TEMP 36.4; O2SAT 100
--- NOTE | 2025-04-29 17:55 | PM.IMPN2 ---
Assessment and Plan Assessment and Plan (1) DKA (diabetic ketoacidosis): Code(s): E11.10 - Type 2 diabetes mellitus with ketoacidosis without coma Status: Acute Assessment and Plan: 04/23: Patient presented the ED with hyperglycemia (621), CO2 < 5, elevated beta hydroxybutyrate. Diagnosed with DKA and given 4 L IV fluid bolus, started on insulin drip per DKA protocol and transferred to the ICU Gap closed and patient was transitioned to Lantus and high-dose sliding scale along with diabetic diet DKA resolved (2) Sepsis: Code(s): A41.9 - Sepsis, unspecified organism Status: Acute Assessment and Plan: Patient presented with foul smelling necrotic ulcer on the plantar aspect of his right big toe with purulent drainage. WBC 31K. Lactic 3.3. Cultures obtained and patient was given 1 dose of clindamycin BCx 04/23 growing Group B Strept Wound Cx growing proteus and Group B Strept BCx 04/26 NGTD Cefepime and linezolid (04/23); Flagyl stopped 04/26. Changed cefepime to Rocephin (04/28) Linezolid stopped 04/29. Continue IV Rocephin. Place midliine (3) Necrotizing fasciitis: Code(s): M72.6 - Necrotizing fasciitis Status: Acute Assessment and Plan: Necrotizing fasciitis likely of the right great toe, extending over 1st and 2nd metatarsal on the right foot. X-ray of the foot showed soft tissue gas concerning for necrotizing fasciitis 04/24: Status post Right midfoot amputation with placement of wound VAC 04/25: Right below-knee amputation -surgery following the patient, pain well controlled -antibiotics as above -PT/OT (4) Type 2 diabetes mellitus: Qualifiers: Diabetes mellitus complication detail: with foot ulcer Diabetes mellitus complication status: with skin complications Diabetes mellitus shelter insulin use: with shelter use Qualified Code(s): E11.621 - Type 2 diabetes mellitus with foot ulcer; L97.509 - Non-pressure chronic ulcer of other part of unspecified foot with unspecified severity; Z79.4 - residential (current) use of insulin Code(s): E11.9 - Type 2 diabetes mellitus without complications Status: Chronic Assessment and Plan: Complicated by retinopathy, nephropathy, neuropathy, and gastroparesis. A1c 11.2%. Dietitian and breastfeeding educator consulted The patient's blood glucose was reviewed on 04/29 Glucose was 151 this morning. Continue AccuCheks covering with sliding scale. Hypoglycemia protocol available as needed. Continue Lantus at night. Advance meal time novlog (5) Acute kidney injury superimposed on chronic kidney disease: Code(s): N17.9 - Acute kidney failure, unspecified; N18.9 - Chronic kidney disease, unspecified Status: Acute Assessment and Plan: Acute on chronic renal failure, creatinine was 2.44 on admission (baseline 1.40-1.90) Patient was adequately fluid-resuscitated Urine output has been adequate Creatinine down to 1.3 Continue to monitor urine output, renal function electrolytes Plan Anemia - microcytic. Iron studies consistent with anemia of chronic disease. Follow DVT prophylaxis: Lovenox Code Status: Full code Subjective Date/time seen: 04/29/25 17:55 Interval history: 49yo male with hypertension and diabetes type 2 with noncompliance with treatment here for weakness and nausea. He also has had multiple surgeries to his feet including amputation and started having draining each from his right foot approximately 4 days ago. 04/24: Right midfoot amputation with placement of wound VAC 04/25: Right below-knee amputation He feels ready for discahrge. Pain well controlled Exam Narrative: AF 97.6 154/94 107 20 100% ra Gen - NARD Chest - CTA bilaterally, nml RR CV - RRR S1/S2 Abd - Soft, NT/ND, Positive BS Ext - Right BKA; no left LE edema Neuro - Alert and appropriate Psych - Nml mood and affect. in good spirits Skin - Warm and dry. Stump wound closed with west without erythema or drainage Objective Data Vital Signs Vital Signs: Vital Signs - 24 hr 04/28/25 20:00 04/28/25 20:31 04/29/25 04:54 Temperature 98.4 F 98.9 F Pulse Rate 102 H 99 Respiratory Rate 18 16 Blood Pressure 136/90 138/78 Pulse Oximetry 97 97 99 Oxygen Delivery Room Air 04/29/25 08:32 04/29/25 15:53 Temperature 97.6 F Pulse Rate 80 107 H Respiratory Rate 16 20 Blood Pressure 154/94 H Pulse Oximetry 99 100 Oxygen Delivery Room Air Intake/Output Intake/Output: Intake & Output 1204/27/25 04/28/25 04/29/25 23:59 23:59 23:59 23:59 Intake Total 1989 0477 3092 2256 Output Total 5085 0249 9965 3000 Balance 469 -2061 -8306 -973 Meds/Results Medications: Active Medications Generic Name Dose Route Start Last Admin Trade Name Freq PRN Reason Stop Dose Admin Acetaminophen 650 mg 04/23/25 22:18 Acetaminophen 325 Mg Tablet PO Q4H PRN Mild Pain (1-3) or Fever Dextrose 12.5 gm 04/25/25 21:38 Dextrose 50% 25 Gm/50 Ml Syringe IV PUSH PRN PRN Hypoglycemia Protocol Enoxaparin Sodium 40 mg 04/24/25 09:00 04/29/25 08:33 Enoxaparin 40 Mg/0.4 Ml Syringe SUB-Q 40 mg DAILY KEEGAN Administration Famotidine 20 mg 04/29/25 09:00 04/29/25 08:32 Famotidine 20 Mg Tablet PO 20 mg Q12HR KEEGAN Administration Gabapentin 300 mg 04/25/25 17:32 04/29/25 17:12 Gabapentin 300 Mg Capsule PO 300 mg TID KEEGAN Administration Glucagon 1 mg 04/25/25 21:38 Glucagon For Inj 1 Mg Vial IM PRN PRN Hypoglycemia Protocol Glucose 15 gm 04/25/25 21:38 Glucose Oral Gel 15 Gm Of Glucse In 37.5 Gm Tube PO PRN PRN Hypoglycemia Protocol Hydralazine HCl 10 mg 04/24/25 04:41 04/27/25 03:44 Hydralazine Hcl 20 Mg/Ml Vial IV PUSH 10 mg Q8H PRN Administration Blood Pressure - High Hydromorphone HCl 1 mg 04/25/25 17:32 04/25/25 21:03 Hydromorphone Hcl Inj (*Crx) 1 Mg/Ml Syr IV PUSH 1 mg Q2H PRN Administration Breakthrough Pain Rated 7-10 or NPO Hydromorphone HCl 0.5 mg 04/25/25 17:32 04/25/25 17:34 Hydromorphone Hcl Inj (*Crx) 1 Mg/Ml Syr IV PUSH 0.5 mg Q2H PRN Administration Breakthrough Pain Rated 4-6 or NPO Ibuprofen 800 mg in 200 mls @ 400 mls/hr 04/25/25 17:32 Caldolor 800 Mg/200 Ml IVPB Q6H PRN Breakthrough Pain Rated 1-3 or NPO Dextrose 1,000 mls @ 100 mls/hr 04/25/25 21:38 Dextrose 5% 1,000 Ml IVPB PRN PRN Hypoglycemia Protocol Ceftriaxone Sodium 2 gm/ 100 mls @ 200 mls/hr 04/28/25 21:00 04/28/25 22:21 Sodium Chloride IVPB 05/06/25 21:29 Infused 2100 [facility] Infusion Insulin Aspart 4 - 8 units 04/26/25 08:00 04/29/25 17:12 Insulin Aspart (*Bkc) 100 Units/Ml SUB-Q 4 units TIDWM [facility] Administration Protocol Insulin Aspart 2 - 4 units 04/25/25 21:00 04/28/25 22:00 Insulin Aspart (*Bkc) 100 Units/Ml SUB-Q 2 units HS [facility] Administration Protocol Insulin Aspart 4 units 04/29/25 08:00 04/29/25 17:14 Insulin Aspart (*Bkc) 100 Units/Ml 0.05 units/kg (4 units) 4 units SUB-Q Administration TIDWM [facility] Insulin Glargine 45 units 04/26/25 21:00 04/28/25 22:00 Insulin Glargine (*Bkc) 100 Units/Ml SUB-Q 45 units HS [facility] Administration Naloxone HCl 0.1 mg 04/25/25 17:32 Naloxone Hcl 0.4 Mg/Ml Vial IV PUSH Q2M PRN Opiate Reversal Ondansetron HCl 4 mg 04/24/25 04:47 04/27/25 09:32 Ondansetron Inj 4 Mg/2 Ml Vial IV PUSH 4 mg Q4H PRN Administration Nausea And Vomiting Oxycodone/Acetaminophen 1 tablet 04/25/25 17:32 Oxycodone/Acetaminophen (*Crx) 5-325 Mg Tablet PO Q4H PRN Pain Rated 4-6 Oxycodone/Acetaminophen 1 tab 04/25/25 17:32 04/26/25 20:55 Oxycodone/Acetaminophen (*Crx) 10-325 Mg Tablet PO 1 tab Q6H PRN Administration Pain Rated 7-10 Senna/Docusate Sodium 2 tab 04/25/25 21:00 04/28/25 22:01 Senna/Docusate Sodium Tablet PO Not Given [facility] Radiology Results: ITS Impressions Chest X-Ray 04/23/25 21:32 IMPRESSION: No acute pulmonary findings. Foot X-Ray 04/23/25 21:33 IMPRESSION: There is soft tissue gas adjacent to the first metatarsal. There are concern for osteomyelitis follow-up MRI is recommended. Labs Labs: Laboratory Results - last 24 hr 04/28/25 04/29/25 04/29/25 20:30 04:50 08:22 WBC 12.0 H RBC 3.93 L Hgb 8.3 L Hct 27.9 L MCV 71.0 L MCH 21.1 L MCHC 29.7 L RDW 19.3 H Plt Count 439 H MPV 9.3 Sodium 136 L Potassium 3.4 Chloride 101 Carbon Dioxide 31 H Anion Gap 4 BUN 11 Creatinine 1.37 H Estim Creat Clear Calc 66 Estimated GFR 56 L Glucose 151 H POC Capillary Glucose 212 H 192 H Calcium 7.4 L Iron 42 L TIBC 151 L % Saturation 28 Ferritin 62.40 Vitamin B12 687.0 Folate 6.0 04/29/25 04/29/25 12:00 17:03 WBC RBC Hgb Hct MCV MCH MCHC RDW Plt Count MPV Sodium Potassium Chloride Carbon Dioxide Anion Gap BUN Creatinine Estim Creat Clear Calc Estimated GFR Glucose POC Capillary Glucose 233 H 251 H Calcium Iron TIBC % Saturation Ferritin Vitamin B12 Folate
[2025-04-29 20:15] VITALS: BP 146/83; PULSE 123; RESP 20; TEMP 36.7; O2SAT 100
[2025-04-29] MEDS: cefTRIAXone 2 GM in SODIUM CHLORIDE 0.9% IV 100 ML 200 ML IVPB (21:25)
[2025-04-29] MEDS: INSULIN GLARGINE (*BKC) 100 UNITS/ML 45 UNITS SUB-Q (21:27)
[2025-04-30] VITALS (7 sets, daily range): BP systolic 149–155; BP diastolic 81–91; PULSE 94–110; RESP 18; TEMP 36.4–36.8; O2SAT 98–100
[2025-04-30 07:29] LABS: Hematocrit 30.9 % (42.0-52.0); Hemoglobin 9.1 g/dL (14.0-18.0); Immature Granulocyte Percent A 0.9 % (0-0.5); Lymphocytes Absolute Auto 1.88 K/mm3 (0.9-3.2); Mean Corpuscular HGB Conc 29.4 g/dl (32-36); Mean Corpuscular Hemoglobin 21.4 pg (26-34); Mean Corpuscular Volume 72.5 fl (80-100); Nucleated Red Blood Cells Absolute Auto 0.000 K/mm3 (0.0-0.012); Nucleated Red Blood Cells Perc 0.0 % (0.0-0.2); Platelet Count Result 443 k/mm3 (150-375); Red Blood Count 4.26 M/mm3 (4.6-6.20); White Blood Count 11.3 K/mm3 (4.5-10.0)
[2025-04-30 07:52] LABS: Hypochromasia 1+; Microcytosis 1+ (NORMAL)
[2025-04-30 07:53] LABS: Basophilic Stippling Occasional; Schistocytes None Seen
[2025-04-30 08:04] LABS: Anion Gap 6 mmol/L (4-12); Blood Urea Nitrogen 14 mg/dL (9-20); Calcium 8.1 mg/dL (8.4-10.2); Carbon Dioxide 33 mmol/L (22-30); Chloride 96 mmol/L (98-107); Estimated CRCL calculation 65 ml/min; Estimated Glomerular Filt Rate 55; Glucose 351 mg/dL (65-110); Potassium 4.8 mmol/L (3.4-5.0); Sodium 135 mmol/L (137-145)
[2025-04-30] MEDS: GABAPENTIN 300 MG CAPSULE PO ×3 (08:37→17:24)
[2025-04-30] MEDS: FAMOTIDINE 20 MG TABLET PO ×2 (08:37→20:38)
[2025-04-30] MEDS: INSULIN ASPART (*BKC) 100 UNITS/ML SUB-Q (08:38)
[2025-04-30] MEDS: INSULIN ASPART (*BKC) 100 UNITS/ML 8 UNITS SUB-Q ×3 (08:38→17:24)
[2025-04-30] MEDS: ENOXAPARIN 40 MG/0.4 ML SYRINGE SUB-Q (08:40)
[2025-04-30] MEDS: LIDOCAINE 1% LOCAL INJ 2 ML AMPUL 5 ML INFILTRATE (10:55)
--- NOTE | 2025-04-30 12:26 | P.PNGS_ITS ---
Progress Note: A&P Assessment and Plan (1) Below-knee amputation of right lower extremity: Code(s): S88.111A - Complete traumatic amputation at level between knee and ankle, right lower leg, initial encounter Status: Acute Assessment and Plan: * POD5 s/p right BKA. Patient continues to improve. Working with PT/OT. Continue local wound care. * Patient is surgically stable for discharge with follow up in office. We are just waiting on insurance approval for [facility] [place]. If patient is denied, the plan is to apply for home health. Plan Discussed patient's case and plan of care with Dr. Kuo. Subjective Subjective Date/Time Seen: 04/30/25 12:26 Post Op day: 5 (BKA) Patient reports: no new complaints, feels better and tolerating a regular diet Interval history: Patient feeling discouraged and worrisome today. He is upset and tearful that he will not be home for [place]. Stressed about insurance situation and how he is going to take care of himself. Vital signs and labs continue to remain normal. Exam Const: General: comfortable and no acute distress Extrem: Other: Right BKA dressing changed today. Healing very well. Incision is clean and dry with minimal drainage. Chris intact. No area concerning for ischemia or dehiscence. Mild erythema to area over tibial stump, but not concerning for any infection. No other redness or warmth. No purulence or fluctuance appreciated. Objective Data Vital Signs Vital Signs: Vital Signs - 24 hr 04/29/25 15:53 04/29/25 20:15 04/30/25 04:53 Temperature 97.6 F 98.0 F 97.6 F Pulse Rate 107 H 123 H 110 H Respiratory Rate 20 20 18 Blood Pressure 154/94 H 146/83 H 152/91 H Pulse Oximetry 100 100 98 Oxygen Delivery 04/30/25 08:00 Temperature Pulse Rate 96 Respiratory Rate Blood Pressure Pulse Oximetry 98 Oxygen Delivery Room Air Intake/Output Intake/Output: Intake & Output 04/27/25 04/28/25 04/29/25 04/30/25 23:59 23:59 23:59 23:59 Intake Total 1950 3092 3276 1440 Output Total 3159 7200 5100 2700 Balance -1200 -9908 -1824 -2670 Meds/Results Medications: Active Medications Generic Name Dose Route Start Last Admin Trade Name Freq PRN Reason Stop Dose Admin Acetaminophen 650 mg 04/23/25 22:18 Acetaminophen 325 Mg Tablet PO Q4H PRN Mild Pain (1-3) or Fever Hydrocodone Bitart/Acetaminophen 1 tab 04/29/25 20:34 Hydrocodone/Acetaminophen (*Crx) 5-325 Mg Tablet PO Q6H PRN Pain Rated 4-6 Dextrose 12.5 gm 04/25/25 21:38 Dextrose 50% 25 Gm/50 Ml Syringe IV PUSH PRN PRN Hypoglycemia Protocol Enoxaparin Sodium 40 mg 04/24/25 09:00 04/30/25 08:40 Enoxaparin 40 Mg/0.4 Ml Syringe SUB-Q 40 mg DAILY KEEGAN Administration Famotidine 20 mg 04/29/25 09:00 04/30/25 08:37 Famotidine 20 Mg Tablet PO 20 mg Q12HR KEEGAN Administration Gabapentin 300 mg 04/25/25 17:32 04/30/25 12:00 Gabapentin 300 Mg Capsule PO 300 mg TID KEEGAN Administration Glucagon 1 mg 04/25/25 21:38 Glucagon For Inj 1 Mg Vial IM PRN PRN Hypoglycemia Protocol Glucose 15 gm 04/25/25 21:38 Glucose Oral Gel 15 Gm Of Glucse In 37.5 Gm Tube PO PRN PRN Hypoglycemia Protocol Hydralazine HCl 10 mg 04/24/25 04:41 04/27/25 03:44 Hydralazine Hcl 20 Mg/Ml Vial IV PUSH 10 mg Q8H PRN Administration Blood Pressure - High Dextrose 1,000 mls @ 100 mls/hr 04/25/25 21:38 Dextrose 5% 1,000 Ml IVPB PRN PRN Hypoglycemia Protocol Ceftriaxone Sodium 2 gm/ 100 mls @ 200 mls/hr 04/28/25 21:00 04/29/25 21:25 Sodium Chloride IVPB 05/06/25 21:29 200 mls/hr 2100 [facility]EEGAN Administration Insulin Aspart 4 - 8 units 04/26/25 08:00 04/30/25 11:53 Insulin Aspart (*Bkc) 100 Units/Ml SUB-Q Not Given TIDWM [facility] Protocol Insulin Aspart 2 - 4 units 04/25/25 21:00 04/29/25 21:26 Insulin Aspart (*Bkc) 100 Units/Ml SUB-Q 2 units HS [facility]EE[facility] Administration Protocol Insulin Aspart 8 units 04/30/25 08:00 04/30/25 11:53 Insulin Aspart (*Bkc) 100 Units/Ml SUB-Q 8 units TIDWM [facility]EE[facility] Administration Insulin Glargine 52 units 04/30/25 21:00 Insulin Glargine (*Bkc) 100 Units/Ml SUB-Q HS [facility]EEGAN Naloxone HCl 0.1 mg 04/25/25 17:32 Naloxone Hcl 0.4 Mg/Ml Vial IV PUSH Q2M PRN Opiate Reversal Ondansetron HCl 4 mg 04/24/25 04:47 04/27/25 09:32 Ondansetron Inj 4 Mg/2 Ml Vial IV PUSH 4 mg Q4H PRN Administration Nausea And Vomiting Oxycodone/Acetaminophen 1 tablet 04/25/25 17:32 Oxycodone/Acetaminophen (*Crx) 5-325 Mg Tablet PO Q4H PRN Pain Rated 7-10 Senna/Docusate Sodium 2 tab 04/25/25 21:00 04/29/25 21:33 Senna/Docusate Sodium Tablet PO Not Given HS KEEGAN Sodium Chloride 10 ml 04/30/25 14:00 Saline Lock Flush IV PUSH Q8HR KEEGAN Sodium Chloride 10 ml 04/30/25 11:27 Saline Lock Flush IV PUSH PRN PRN Flush Sodium Chloride 20 ml 04/30/25 11:27 Saline Lock Flush IV PUSH PRN PRN after blood draws Radiology Results: ITS Impressions Chest X-Ray 04/23/25 21:32 IMPRESSION: No acute pulmonary findings. Foot X-Ray 04/23/25 21:33 IMPRESSION: There is soft tissue gas adjacent to the first metatarsal. There are concern for osteomyelitis follow-up MRI is recommended. Labs Labs: Laboratory Results - last 24 hr 04/29/25 04/29/25 04/30/25 17:03 20:10 07:20 WBC 11.3 H RBC 4.26 L Hgb 9.1 L Hct 30.9 L MCV 72.5 L MCH 21.4 L MCHC 29.4 L RDW 19.4 H Plt Count 443 H MPV 8.7 Immature Gran % (Auto) 0.9 H Neut % (Auto) 71.6 Lymph % (Auto) 16.6 L [place] % (Auto) 9.8 H Eos % (Auto) 0.8 Baso % (Auto) 0.3 Lymph # (Auto) 1.88 [place] # (Auto) 1.1 H Eos # (Auto) 0.1 Baso # (Auto) 0.0 Abs Immat Gran (auto) 0.10 H Absolute Neuts (auto) 8.1 H Absolute Nucleated RBC 0.000 Band Neutrophils % Not Reportable Nucleated RBC % 0.0 Platelet Estimate Increased Hypochromasia 1+ Basophilic Stippling Occasional Microcytosis 1+ Schistocytes None seen Sodium 135 L Potassium 4.8 Chloride 96 L Carbon Dioxide 33 H Anion Gap 6 BUN 14 Creatinine 1.38 H Estim Creat Clear Calc 65 Estimated GFR 55 L Glucose 351 H POC Capillary Glucose 251 H 212 H Calcium 8.1 L 04/30/25 04/30/25 08:15 11:29 WBC RBC Hgb Hct MCV MCH MCHC RDW Plt Count MPV Immature Gran % (Auto) Neut % (Auto) Lymph % (Auto) [place] % (Auto) Eos % (Auto) Baso % (Auto) Lymph # (Auto) [place] # (Auto) Eos # (Auto) Baso # (Auto) Abs Immat Gran (auto) Absolute Neuts (auto) Absolute Nucleated RBC Band Neutrophils % Nucleated RBC % Platelet Estimate Hypochromasia Basophilic Stippling Microcytosis Schistocytes Sodium Potassium Chloride Carbon Dioxide Anion Gap BUN Creatinine Estim Creat Clear Calc Estimated GFR Glucose POC Capillary Glucose 343 H 177 H Calcium
--- NOTE | 2025-04-30 12:27 | P.PNIM_ITS ---
Assessment and Plan Assessment and Plan (1) DKA (diabetic ketoacidosis): Code(s): E11.10 - Type 2 diabetes mellitus with ketoacidosis without coma Status: Acute Assessment and Plan: 04/23: Patient presented the ED with hyperglycemia (621), CO2 < 5, elevated beta hydroxybutyrate. Diagnosed with DKA and given 4 L IV fluid bolus, started on insulin drip per DKA protocol and transferred to the ICU Gap closed and patient was transitioned to Lantus and high-dose sliding scale along with diabetic diet DKA resolved (2) Sepsis: Code(s): A41.9 - Sepsis, unspecified organism Status: Acute Assessment and Plan: Patient presented with foul smelling necrotic ulcer on the plantar aspect of his right big toe with purulent drainage. WBC 31K. Lactic 3.3. Cultures obtained and patient was given 1 dose of clindamycin BCx 04/23 growing Group B Strept Wound Cx growing proteus and Group B Strept BCx 04/26 NGTD Cefepime and linezolid (04/23); Flagyl stopped 04/26. Changed cefepime to Rocephin (04/28) Linezolid stopped 04/29. Continue IV Rocephin through 05/06. Midline placed. Having BMs. [facility] could not take patient today but maybe tomorrow. (3) Necrotizing fasciitis: Code(s): M72.6 - Necrotizing fasciitis Status: Acute Assessment and Plan: Necrotizing fasciitis likely of the right great toe, extending over 1st and 2nd metatarsal on the right foot. X-ray of the foot showed soft tissue gas concerning for necrotizing fasciitis 04/24: Status post Right midfoot amputation with placement of wound VAC 04/25: Right below-knee amputation Surgery following the patient, pain well controlled Antibiotics as above Continue PT/OT (4) Type 2 diabetes mellitus: Qualifiers: Diabetes mellitus complication detail: with foot ulcer Diabetes mellitus complication status: with skin complications Diabetes mellitus senior care insulin use: with senior care use Qualified Code(s): E11.621 - Type 2 diabetes mellitus with foot ulcer; L97.509 - Non-pressure chronic ulcer of other part of unspecified foot with unspecified severity; Z79.4 - group home (current) use of insulin Code(s): E11.9 - Type 2 diabetes mellitus without complications Status: Chronic Assessment and Plan: Complicated by retinopathy, nephropathy, neuropathy, and gastroparesis. A1c 11.2%. Dietitian and de icer element winder consulted The patient's blood glucose was reviewed on 04/29 Glucose was 351 this morning felt related to patient snacking prior to sampling. Continue AccuCheks covering with sliding scale. Hypoglycemia protocol available as needed. Continue Lantus at night. Continue meal time Novolog (5) Acute kidney injury superimposed on chronic kidney disease: Code(s): N17.9 - Acute kidney failure, unspecified; N18.9 - Chronic kidney disease, unspecified Status: Acute Assessment and Plan: Acute on chronic renal failure, creatinine was 2.44 on admission (baseline 1.40- 1.90) Patient was adequately fluid-resuscitated Urine output has been adequate Creatinine down to 1.3 and stable Continue to monitor urine output, renal function electrolytes Plan Anemia - microcytic. Iron studies consistent with anemia of chronic disease. Follow DVT prophylaxis: Lovenox Code Status: Full code Subjective Date/time seen: 04/30/25 12:27 Interval history: 49yo male with hypertension and diabetes type 2 with noncompliance with treatment here for weakness and nausea. He also has had multiple surgeries to his feet including amputation and started having draining each from his right foot approximately 4 days ago. 04/24: Right midfoot amputation with placement of wound VAC 04/25: Right below-knee amputation No CP or SOB. Stump pain 2/10. His glucoser was 350 this morning but patient was 'snacking' before his blood was taken. Exam Narrative: AF 97.6 152/91 96 18 98% ra Gen - NARD Chest - CTA bilaterally, nml RR CV - RRR S1/S2 Abd - Soft, NT/ND, Positive BS Ext - Right BKA; no left LE edema Psych - Nml mood and affect. in good spirits Skin - Warm and dry. Stump dressing clean, dry and intact Objective Data Vital Signs Vital Signs: Vital Signs - 24 hr 04/29/25 15:53 04/29/25 20:15 04/30/25 04:53 Temperature 97.6 F 98.0 F 97.6 F Pulse Rate 107 H 123 H 110 H Respiratory Rate 20 20 18 Blood Pressure 154/94 H 146/83 H 152/91 H Pulse Oximetry 100 100 98 Oxygen Delivery 04/30/25 08:00 Temperature Pulse Rate 96 Respiratory Rate Blood Pressure Pulse Oximetry 98 Oxygen Delivery Room Air Intake/Output Intake/Output: Intake & Output 04/27/25 04/28/25 04/29/25 04/30/25 23:59 23:59 23:59 23:59 Intake Total 1950 3092 3276 1440 Output Total 3150 7200 5101 270 [facility] -1200 -4108 -1824 -1260 Meds/Results Medications: Active Medications Generic Name Dose Route Start Last Admin Trade Name Freq PRN Reason Stop Dose Admin Acetaminophen 650 mg 04/23/25 22:18 Acetaminophen 325 Mg Tablet PO Q4H PRN Mild Pain (1-3) or Fever Hydrocodone Bitart/Acetaminophen 1 tab 04/29/25 20:34 Hydrocodone/Acetaminophen (*Crx) 5-325 Mg Tablet PO Q6H PRN Pain Rated 4-6 Dextrose 12.5 gm 04/25/25 21:38 Dextrose 50% 25 Gm/50 Ml Syringe IV PUSH PRN PRN Hypoglycemia Protocol Enoxaparin Sodium 40 mg 04/24/25 09:00 04/30/25 08:40 Enoxaparin 40 Mg/0.4 Ml Syringe SUB-Q 40 mg DAILY KEEGAN Administration Famotidine 20 mg 04/29/25 09:00 04/30/25 08:37 Famotidine 20 Mg Tablet PO 20 mg Q12HR KEEGAN Administration Gabapentin 300 mg 04/25/25 17:32 04/30/25 12:00 Gabapentin 300 Mg Capsule PO 300 mg TID KEEGAN Administration Glucagon 1 mg 04/25/25 21:38 Glucagon For Inj 1 Mg Vial IM PRN PRN Hypoglycemia Protocol Glucose 15 gm 04/25/25 21:38 Glucose Oral Gel 15 Gm Of Glucse In 37.5 Gm Tube PO PRN PRN Hypoglycemia Protocol Hydralazine HCl 10 mg 04/24/25 04:41 04/27/25 03:44 Hydralazine Hcl 20 Mg/Ml Vial IV PUSH 10 mg Q8H PRN Administration Blood Pressure - High Dextrose 1,000 mls @ 100 mls/hr 04/25/25 21:38 Dextrose 5% 1,000 Ml IVPB PRN PRN Hypoglycemia Protocol Ceftriaxone Sodium 2 gm/ 100 mls @ 200 mls/hr 04/28/25 21:00 04/29/25 21:25 Sodium Chloride IVPB 05/06/25 21:29 200 mls/hr 2100 KEEGAN Administration Insulin Aspart 4 - 8 units 04/26/25 08:00 04/30/25 11:53 Insulin Aspart (*Bkc) 100 Units/Ml SUB-Q Not Given TIDWM [facility] Protocol Insulin Aspart 2 - 4 units 04/25/25 21:00 04/29/25 21:26 Insulin Aspart (*Bkc) 100 Units/Ml SUB-Q 2 units HS KEEGAN Administration Protocol Insulin Aspart 8 units 04/30/25 08:00 04/30/25 11:53 Insulin Aspart (*Bkc) 100 Units/Ml SUB-Q 8 units TIDWM KEEGAN Administration Insulin Glargine 52 units 04/30/25 21:00 Insulin Glargine (*Bkc) 100 Units/Ml SUB-Q HS KEEGAN Naloxone HCl 0.1 mg 04/25/25 17:32 Naloxone Hcl 0.4 Mg/Ml Vial IV PUSH Q2M PRN Opiate Reversal Ondansetron HCl 4 mg 04/24/25 04:47 04/27/25 09:32 Ondansetron Inj 4 Mg/2 Ml Vial IV PUSH 4 mg Q4H PRN Administration Nausea And Vomiting Oxycodone/Acetaminophen 1 tablet 04/25/25 17:32 Oxycodone/Acetaminophen (*Crx) 5-325 Mg Tablet PO Q4H PRN Pain Rated 7-10 Senna/Docusate Sodium 2 tab 04/25/25 21:00 04/29/25 21:33 Senna/Docusate Sodium Tablet PO Not Given HS [facility] Sodium Chloride 10 ml 04/30/25 14:00 Saline Lock Flush IV PUSH Q8HR KEEGAN Sodium Chloride 10 ml 04/30/25 11:27 Saline Lock Flush IV PUSH PRN PRN Flush Sodium Chloride 20 ml 04/30/25 11:27 Saline Lock Flush IV PUSH PRN PRN after blood draws Radiology Results: ITS Impressions Chest X-Ray 04/23/25 21:32 IMPRESSION: No acute pulmonary findings. Foot X-Ray 04/23/25 21:33 IMPRESSION: There is soft tissue gas adjacent to the first metatarsal. There are concern for osteomyelitis follow-up MRI is recommended. Labs Labs: Laboratory Results - last 24 hr 04/29/25 04/29/25 04/30/25 17:03 20:10 07:20 WBC 11.3 H RBC 4.26 L Hgb 9.1 L Hct 30.9 L MCV 72.5 L MCH 21.4 L MCHC 29.4 L RDW 19.4 H Plt Count 443 H MPV 8.7 Immature Gran % (Auto) 0.9 H Neut % (Auto) 71.6 Lymph % (Auto) 16.6 L Bledsoe % (Auto) 9.8 H Eos % (Auto) 0.8 Baso % (Auto) 0.3 Lymph # (Auto) 1.88 Bledsoe # (Auto) 1.1 H Eos # (Auto) 0.1 Baso # (Auto) 0.0 Abs Immat Gran (auto) 0.10 H Absolute Neuts (auto) 8.1 H Absolute Nucleated RBC 0.000 Band Neutrophils % Not Reportable Nucleated RBC % 0.0 Platelet Estimate Increased Hypochromasia 1+ Basophilic Stippling Occasional Microcytosis 1+ Schistocytes None seen Sodium 135 L Potassium 4.8 Chloride 96 L Carbon Dioxide 33 H Anion Gap 6 BUN 14 Creatinine 1.38 H Estim Creat Clear Calc 65 Estimated GFR 55 L Glucose 351 H POC Capillary Glucose 251 H 212 H Calcium 8.1 L 04/30/25 04/30/25 08:15 11:29 WBC RBC Hgb Hct MCV MCH MCHC RDW Plt Count MPV Immature Gran % (Auto) Neut % (Auto) Lymph % (Auto) Bledsoe % (Auto) Eos % (Auto) Baso % (Auto) Lymph # (Auto) Bledsoe # (Auto) Eos # (Auto) Baso # (Auto) Abs Immat Gran (auto) Absolute Neuts (auto) Absolute Nucleated RBC Band Neutrophils % Nucleated RBC % Platelet Estimate Hypochromasia Basophilic Stippling Microcytosis Schistocytes Sodium Potassium Chloride Carbon Dioxide Anion Gap BUN Creatinine Estim Creat Clear Calc Estimated GFR Glucose POC Capillary Glucose 343 H 177 H Calcium
[2025-04-30] MEDS: PANTOPRAZOLE 40 MG TABLET PO (13:10)
[2025-04-30] MEDS: METOPROLOL TARTRATE 25 MG TABLET PO ×2 (13:11→20:48)
[2025-04-30] MEDS: EMPAGLIFLOZIN 25 MG TABLET PO (13:11)
[2025-04-30] MEDS: SERTRALINE HCL 50 MG TABLET 100 MG PO (13:13)
[2025-04-30] MEDS: SALINE LOCK FLUSH 10 ML IV PUSH ×2 (14:51→20:41)
[2025-04-30] MEDS: cefTRIAXone 2 GM in SODIUM CHLORIDE 0.9% IV 100 ML 200 ML IVPB (20:36)
[2025-04-30] MEDS: SIMVASTATIN 20 MG TABLET PO (20:38)
[2025-04-30] MEDS: SENNA/DOCUSATE SODIUM TABLET 2 TAB PO (20:39)
[2025-04-30] MEDS: INSULIN GLARGINE (*BKC) 100 UNITS/ML 45 UNITS SUB-Q (20:41)
[2025-04-30] MEDS: oxyCODONE/ACETAMINOPHEN (*CRX) 5-325 MG TABLET 1 TABLET PO (23:55)
[2025-05-01 04:23] VITALS: BP 140/73; PULSE 106; RESP 17; TEMP 36.8; O2SAT 100
[2025-05-01] MEDS: SALINE LOCK FLUSH 10 ML IV PUSH (05:58)
[2025-05-01] MEDS: INSULIN ASPART (*BKC) 100 UNITS/ML 8 UNITS SUB-Q ×2 (09:14→12:39)
[2025-05-01] MEDS: INSULIN ASPART (*BKC) 100 UNITS/ML SUB-Q (09:15)
[2025-05-01 09:16] VITALS: PULSE 108
[2025-05-01] MEDS: GABAPENTIN 300 MG CAPSULE PO (09:16)
[2025-05-01] MEDS: METOPROLOL TARTRATE 25 MG TABLET PO (09:16)
[2025-05-01] MEDS: EMPAGLIFLOZIN 25 MG TABLET PO (09:16)
[2025-05-01] MEDS: PANTOPRAZOLE 40 MG TABLET PO (09:16)
[2025-05-01] MEDS: FAMOTIDINE 20 MG TABLET PO (09:17)
[2025-05-01] MEDS: SERTRALINE HCL 50 MG TABLET 100 MG PO (09:17)
[2025-05-01] MEDS: ENOXAPARIN 40 MG/0.4 ML SYRINGE SUB-Q (09:17)
--- NOTE | 2025-05-01 10:50 | PCNWS ---
Weekly nutritional screen. Patient is tolerating current Diabetic diet with adequate intake at 75-100%. No weight loss reported. No nutritional recommendations at this time.
--- NOTE | 2025-05-01 11:14 | P.DS_ITS ---
DS: Admitting Diagnosis Discharge Date 05/01/2025 Admitting Diagnosis Hyperglycemia and nausea. DS: Discharge Diagnosis Discharge Diagnosis (1) DKA (diabetic ketoacidosis): Qualifiers: Diabetes mellitus complication detail: without coma Diabetes mellitus type: type 2 Qualified Code(s): E11.10 - Type 2 diabetes mellitus with ketoacidosis without coma Code(s): E11.10 - Type 2 diabetes mellitus with ketoacidosis without coma Status: Acute (2) Ulcer of right great toe due to diabetes mellitus: Code(s): E11.621 - Type 2 diabetes mellitus with foot ulcer; L97.519 - Non-pressure chronic ulcer of other part of right foot with unspecified severity Status: Acute DS: Summary Hospital Course Hospital Course: Discharge Diagnoses * Diabetic ketoacidosis (DKA), type 2, without coma?? resolved * Sepsis due to necrotizing soft tissue infection of right foot?(Group B Streptococcus bacteremia) * Necrotizing fasciitis of right foot * Status post right midfoot amputation (04/24/25) * Status post right below-knee amputation (04/25/25) * Type 2 diabetes mellitus, poorly controlled, with complications (neuropathy, nephropathy, retinopathy, gastroparesis), on long-term insulin * Acute kidney injury on chronic kidney disease stage 3?? resolved to baseline * Chronic microcytic anemia (anemia of chronic disease) * Hypertension * Hyperlipidemia Hospital Course The patient presented on 04/23/25 with hyperglycemia, nausea, weakness, and a foul-smelling infected right foot wound after medication noncompliance. He was found to be in?severe DKA?(glucose >600, CO? <5, beta-hydroxybutyrate 12.9, pH 7.30) with?sepsis, leukocytosis (WBC 30.7), lactic acidosis, and CARLOTTA on CKD. He was admitted to the ICU and treated with aggressive IV fluids, insulin infusion, electrolyte replacement, and broad-spectrum IV antibiotics. Imaging demonstrated?soft tissue gas?in the right foot concerning for?necrotizing fasciitis. On?04/24/25, he underwent?right midfoot amputation with wound VAC placement?for limb salvage. Due to persistent necrotizing infection and inadequate soft tissue coverage, he subsequently required a?right below-knee amputation on 04/25/25. Postoperatively, the infection was controlled, pain was well managed, and the surgical site healed appropriately. Blood cultures grew?Group B Streptococcus; wound cultures grew?Proteus species and Group B Streptococcus. Antibiotics were narrowed to?IV ceftriaxone, planned through?05/06/25, with a midline catheter placed. DKA resolved with closure of the anion gap, and the patient was transitioned to?basal-bolus insulin therapy?with diabetic diet. Renal function improved to baseline (Cr ?1.3?1.4). He participated in PT/OT and was medically stable for discharge, pending rehabilitation placement. Discharged to Acute rehab. Procedures * 04/24/25:?Right midfoot amputation with wound VAC * 04/25/25:?Right below-knee amputation Discharge Medications * Ceftriaxone 2 g IV daily?(continue through 05/06/25) * Insulin glargine 52 units SQ nightly * Insulin aspart SQ with meals and at bedtime per sliding scale * Gabapentin 300 mg PO TID * Famotidine 20 mg PO BID * Enoxaparin 40 mg SQ daily?(DVT prophylaxis, per rehab protocol) * Acetaminophen PRN pain * Oxycodone/acetaminophen PRN moderate?severe pain * Hydralazine PRN hypertension (Home antihypertensives and statin to be resumed as outpatient if renal function and BP allow.) Discharge Instructions * Strict adherence to?insulin regimen and glucose monitoring?emphasized * Diabetic diet * Wound and stump care as instructed; keep incision clean and dry * Continue PT/OT for mobility and prosthetic planning * Complete full IV antibiotic course * Monitor for fever, increasing stump pain, redness, drainage, or signs of infection Follow-Up * General Surgery:?Post-op follow-up in 1?2 weeks * Primary Care:?Within 1 week * Endocrinology / Diabetes management:?As outpatient * Rehabilitation Medicine / Prosthetics:?As arranged Condition at Discharge Hemodynamically stable, afebrile, pain controlled, tolerating diet, DKA resolved, infection controlled, status post right below-knee amputation, medically stable for rehabilitation or home with services. Time Spent with Patient Time attestation: Total time spent providing and/or coordinating discharge services: DS: Data Data Completed and Pending Completed studies during hospitalization: Pending at discharge 04/24/25 17:10 Surgical [PTH] Routine 04/25/25 15:56 Surgical [PTH] Routine Labs on day of discharge: Labs from last 24 hours 05/01/25 04/30/25 04/30/25 08:03 19:30 16:30 POC Capillary Glucose 315 H 154 H 126 H 04/30/25 11:29 POC Capillary Glucose 177 H Preliminary micro results at discharge 04/26/25 10:45 Blood Culture - Preliminary Blood 04/26/25 10:34 Blood Culture - Preliminary Blood Discharge Plan Discharge Attending physician on discharge: Mary Cartagena Consulting providers: Raul Kuo; Everette Santiago; Mary Cartagena Discharging Clinician: Mary Cartagena Anticipated Discharge Date/Time: 05/01/25 11:03 Patient Disposition: [facility] [place] [facility] Activity: as tolerated Diet: as tolerated and diabetic Patient Instructions: Enoxaparin (By injection), Diabetic Ketoacidosis (DC), Diabetic Ketoacidosis (GEN), Diabetic Ketoacidosis (IP), Basic Carbohydrate Counting (DC) Patient Language: Romansh Follow-up/Referrals: Caridad,AMOS Roach [Primary Care Provider, Family Practice] Referral Note: F/u with PCP in 3-5 days Raul Kuo DO [Physician, General Surgery] Referral Note: F/u with Gen surgery as instructed Discharge Medications: New ceftriaxone 2 gram recon soln 2 g IV Q24H 5 Days Continued simvastatin 20 mg tablet 20 mg PO HS metoprolol tartrate 50 mg tablet 50 mg PO BID omeprazole 20 mg Capsule,Delayed Release(Dr/Ec) 20 mg PO DAILY sertraline 100 mg tablet 100 mg PO Q24H Jardiance 25 mg tablet 25 mg PO DAILY lisinopril-hydrochlorothiazide 20-12.5 mg tablet 1 tablet PO DAILY hydroxyzine HCl 50 mg tablet 50 mg PO DAILY insulin glargine [Lantus U-100 Insulin] 100 unit/mL Solution 35 unit subcut QHS Date of admission: 04/23/25 22:18 Primary Care Provider: PiperAltagarcia Admitting Provider: Wili Goncalves Attending physician on admission: Wili Goncalves Condition: Serious
--- NOTE | 2025-05-01 11:32 | PC.NURSE ---
Notified Dr. Romo via cell to place specific discharge orders for patient including diet, activity, and post surgical/wound orders. Dr. Romo verified via phone that he would put in the orders.
--- NOTE | 2025-05-03 14:14 | PCCDE ---
: DM educator attempted courtesy follow up call. Outgoing message stating ...I'm sorry your call cannot be completed at this time, try again later. Unable to leave message.
== END 2025-05-01 12:54 | DRG 710 ==
LOC: ANHED 20:39 → ANHICU 22:37 → ANH2MED 04-26 11:17
PROVIDERS: Internal Medicine; Nurse Practitioner; Surgery; Admitting Provider Internal Medicine; Emergency Provider Student in an Organized Health Care Education/Training Program; PCP Physician Assistant; Visit Provider Internal Medicine
PROC: (CPT 28805; principal; 2025-04-24 16:00)
PROC: 0Y6M0Z0 Detachment at Right Foot, Complete, Open Approach (ICD-10-PCS; CPT 27882; principal; 2025-04-25 15:00)
DX: A41.9 Sepsis, unspecified organism (principal); E11.10 Type 2 diabetes mellitus with ketoacidosis without coma; E11.621 Type 2 diabetes mellitus with foot ulcer; L97.518 Non-pressure chronic ulcer of other part of right foot with other specified severity; L03.115 Cellulitis of right lower limb; M72.6 Necrotizing fasciitis; Z91.148 Patient's other noncompliance with medication regimen for other reason; E11.42 Type 2 diabetes mellitus with diabetic polyneuropathy; D63.1 Anemia in chronic kidney disease; E11.69 Type 2 diabetes mellitus with other specified complication; E11.319 Type 2 diabetes mellitus with unspecified diabetic retinopathy without macular edema; E11.22 Type 2 diabetes mellitus with diabetic chronic kidney disease; I13.10 Hypertensive heart and chronic kidney disease without heart failure, with stage 1 through stage 4 chronic kidney disease, or unspecified chronic kidney disease; E78.5 Hyperlipidemia, unspecified; E11.43 Type 2 diabetes mellitus with diabetic autonomic (poly)neuropathy; F31.9 Bipolar disorder, unspecified; K21.9 Gastro-esophageal reflux disease without esophagitis; K31.84 Gastroparesis; N18.30 Chronic kidney disease, stage 3 unspecified; N17.9 Acute kidney failure, unspecified; Z91.51 Personal history of suicidal behavior; Z89.422 Acquired absence of other left toe(s); Z89.421 Acquired absence of other right toe(s); Z87.891 Personal history of nicotine dependence; Z79.4 Long term (current) use of insulin; Z79.84 Long term (current) use of oral hypoglycemic drugs; Z20.822 Contact with and (suspected) exposure to COVID-19
CPT/HCPCS: 36410; 36415; 36600; 71045; 73620; 80048; 80053; 81001; 82010; 82375; 82607; 82728; 82746; 82805; 82948; 83036; 83050; 83540; 83550; 83605; 83690; 83735; 84100; 85018; 85025; 85027; 85610; 85730; 86140; 87040; 87070; 87075; 87186; 87637; 87641; 88307; 88311; 93005; 96361; 96365; 96375; 96376; 97110; 97116; 97162; 97165; 97530; 97535; 99291; A9270; C1751; J0360; J0692; J0696; J1100; J1171; J1650; J1790; J1815; J1836; J2003; J2020; J2250; J2270; J2405; J2704; J2765; J3010; J3373; J3480; J7030; J7040; J7050; J7120; L1830